=== PATIENT | female | born 1955 | race Hispanic/Latino ===

== ENCOUNTER 2017-02-12 22:12 | Emergency (ER) | payer MEDICAID ==
--- NOTE | 2017-02-12 23:33 | Emergency Department Report ---
HPI - General Chief Complaint: Abdominal Pain Time Seen by Provider: 02/12/17 22:59 - HPI HPI: This is a 61-year-old female who presents to the emergency department via EMS from home a personal ch[facility] with a complaint of some abdominal pain, lower leg pain and possible distention. The patient herself does not really have any complaints but she has a history of multiple aneurysms, dementia, previous brain injury. She presents with a note from her food service hotel runner explaining that she has a level of baseline confusion. She also has a history of a TIA last year. She has a history of liver cirrhosis, previous alcoholism, hypertension. The note says that she has been having this generalized abdominal pain and that they feel like her abdomen is slightly swollen. They also say that she had a recent fall and that there is bruising and swelling to the legs and that she is on Plavix. It appears as if her primary care physician is Dr. mai. ED Past Medical Hx - Past Medical History Previous Medical History?: Yes Hx Hypertension: Yes Hx CVA: Yes () Hx Congestive Heart Failure: No Hx Diabetes: No Hx GERD: Yes Hx Liver Disease: Yes (liver cirrhosis) Hx Sickle Cell Disease: No Hx Arthritis: Yes Hx Seizures: Yes (3 YRS AGO, on keppra) Hx Psychiatric Treatment: Yes (bipolar) Hx Asthma: No Hx COPD: No Hx Dementia: Yes Additional medical history: Thrombocytopenia, Alcohol- induced persisting dementia, anneurysm x2, ETOH abuse - Surgical History Past Surgical History?: Yes Additional Surgical History: Brain aneurysm x 2Hysterectomy 11/21/13 - Social History Smoking Status: Never Smoker - Medications Home Medications: Home Medications Medication Instructions Recorded Confirmed Last Taken Type Folic Acid [Folvite] 1 mg PO QDAY 11/02/13 09/05/15 06/21/15 History Hydroxyzine HCl [hydrOXYzine] 50 mg PO PRN PRN 11/02/13 09/05/15 06/21/15 History Lactulose [Cephulac] 30 gm PO TID 11/02/13 09/05/15 06/21/15 History Multivitamin [Multi-Vitamin Daily] 1 each PO DAILY 11/02/13 09/05/15 06/21/15 History Spironolactone [Aldactone] 100 mg PO DAILY 11/02/13 09/05/15 06/21/15 History Thiamine [Vitamin B-1] 100 mg PO QDAY 11/02/13 09/05/15 06/21/15 History lamoTRIgine [LaMICtal] 25 mg PO BID 11/02/13 09/05/15 06/21/15 History levETIRAcetam [Keppra TAB] 1,500 mg PO BID 11/02/13 09/05/15 06/21/15 History traZODone [Desyrel] 25 mg PO QHS PRN 11/02/13 09/05/15 06/21/15 History Aspirin [Aspirin BABY CHEW TAB] 1 tab PO DAILY 05/10/14 09/05/15 06/15/15 History Propranolol LA [Inderal LA] 60 mg PO QDAY #30 capsule 06/02/14 09/05/15 Rx Plavix 75 mg PO DAILY 06/14/15 09/05/15 06/15/15 History Famotidine [Pepcid] 40 mg PO QHS 09/05/15 09/05/15 Unknown History Pantoprazole [Protonix TAB] 40 mg PO BID #60 tablet 09/10/15 Unknown Rx Rifaximin [Xifaxan] 550 mg PO BID #60 tablet 09/10/15 Unknown Rx ED Review of Systems ROS: Stated complaint: ABD PAIN Other details as noted in HPI Comment: Unobtainable due to pts medical conditions Gastrointestinal: abdominal pain. denies: vomiting Musculoskeletal: arthralgia, myalgia Physical Exam - Physical Exam Vital Signs: Vital Signs 02/12/17 22:45 Temperature 97.7 F Pulse Rate 52 L Blood Pressure 114/63 [Left] O2 Sat by Pulse 97 Oximetry Physical Exam: GENERAL: The patient is well-developed well-nourished. HENT: Normocephalic. Atraumatic. Patient has moist mucous membranes. EYES: Extraocular motions are intact. Pupils equal reactive to light bilaterally. NECK: Supple. Trachea is midline. CHEST/LUNGS: Clear to auscultation. There is no respiratory distress noted. HEART/CARDIOVASCULAR: Regular. There is no tachycardia. There is no gallop rub or murmur. ABDOMEN: Abdomen is soft, nontender. Patient has normal bowel sounds. There is no abdominal distention. SKIN: There is some ecchymosis seen to the bilateral anterior tib-fib. Skin is warm and dry. NEURO: The patient is awake and cooperative. There is some confusion but it is baseline for the patient. The patient has normal speech. MUSCULOSKELETAL: There is no tenderness or deformity. There is no evidence of acute injury. ED Course Vital Signs 02/12/17 22:45 Temperature 97.7 F Pulse Rate 52 L Blood Pressure 114/63 [Left] O2 Sat by Pulse 97 Oximetry ED Medical Decision Making - Lab Data Result diagrams: 02/12/17 22:52 02/12/17 22:52 - Radiology Data Radiology results: report reviewed, image reviewed interpreted by me: Abdominal x-ray shows some nonspecific nonobstructive bowel gas. X-ray of the bilateral tib-fib does not show any fracture, does occasionally acute process. PROCEDURE: CT ABDOMEN PELVIS W CON TECHNIQUE: Computerized axial tomography of the abdomen and pelvis was performed after the IV injection of iodinated nonionic contrast. HISTORY: Abd pain COMPARISON: 01/22/2014 FINDINGS: Visualized lower thorax: There are large esophageal varices. Lung bases are clear. Liver: The liver is enlarged and heterogeneous and nodular consistent with advanced cirrhosis. The appearance is similar to previous examination.. Spleen: Normal size and attenuation. Gallbladder and biliary system: There is cholelithiasis. There is no cholecystitis or biliary ductal dilatation.. Pancreas: Normal. Adrenals: Normal. Kidneys: Normal. GI tract: There is mucosal thickening of the stomach suggesting gastritis. There is no bowel obstruction, colitis or enteritis. There is moderate stool in the colon. Appendix is normal.. Lymph nodes and mesentery: There are nonspecific borderline prominent mesenteric lymph nodes.. Vasculature: There are gastric varices. There is chronic occlusion of the portal vein. There is calcified plaque in the abdominal aorta. There is no aneurysm.. Bladder: Normal. Reproductive organs: There has been a hysterectomy.. Peritoneum: There is no ascites or free air, abscess or adenopathy.. Musculoskeletal structures: No significant abnormality. There is bilateral spondylolysis at L5-S1. Other: None. IMPRESSION: The liver is enlarged and heterogeneous and nodular consistent with advanced cirrhosis. The appearance is similar to previous examination.. There is cholelithiasis. There is no cholecystitis or biliary ductal dilatation.. There is mucosal thickening of the stomach suggesting gastritis. There is no bowel obstruction, colitis or enteritis. There is moderate stool in the colon. Appendix is normal.. There are nonspecific borderline prominent mesenteric lymph nodes.. There are esophageal and gastric varices. There is chronic occlusion of the portal vein. There is calcified plaque in the abdominal aorta. There is no aneurysm.. There has been a hysterectomy.. There is no ascites or free air, abscess or adenopathy.. - Medical Decision Making 61-year-old female presents from her personal chcf with the complaint of possible abdominal pain, leg pain and a recent fall. She has a history of liver cirrhosis and the food service hotel runner thought she might appear to have abdominal distention as well. Her labs are mostly unremarkable. There is some elevation in her ammonia but she has a history of hyperammonemia and takes lactulose 3 times a day. She is at her baseline mental status. Abdominal x-ray shows some nonspecific nonobstructive bowel gas. A CT of the abdomen and pelvis with IV contrast was done that shows some cholelithiasis without cholecystitis, cirrhosis and some chronic issues but no acute process seen including no ascites. X-rays are done of the bilateral tib-fib do not show any fracture, dislocation or any acute process. Vital signs stable throughout her ED course. I spoke to the food service hotel runner, Ms. Weir, who is aware of the workup done, the results and the plan to send her back to the personal chcf by encouragement to follow up with the PCP and software project lead. - Differential Diagnosis cirrhosis, ascites, gastritis, diverticulitis Critical Care Time: No Critical care attestation.: If time is entered above; I have spent that time in minutes in the direct care of this critically ill patient, excluding procedure time. ED Disposition Clinical Impression: Hyperammonemia Liver cirrhosis Qualifiers: Hepatic cirrhosis type: unspecified hepatic cirrhosis Ascites presence: without ascites Qualified Code(s): K74.60 - Unspecified cirrhosis of liver Abdominal pain Qualifiers: Abdominal location: generalized Qualified Code(s): R10.84 - Generalized abdominal pain Disposition: -01 TO HOME OR SELFCARE Is pt being admited?: No Condition: Stable Instructions: Cirrhosis (ED), Abdominal Pain (ED), Fall Prevention (ED) Additional Instructions: Please follow up with the primary care physician and the software project lead. Return to the emergency Department with any worsening of your symptoms or any acute distress. Referrals: PRIMARY CARE, [Primary Care Provider] - 3-5 Days EDUIN TELLO MD [Staff Physician] - 3-5 Days LEMUEL ORTIZ MD [Staff Physician] - 3-5 Days Time of Disposition: 03:57
[2017-02-12 23:43] LABS: Alanine Aminotransferase 19 units/L (7-56); Albumin/Globulin Ratio 0.9 %; Alkaline Phosphatase 96 units/L (35-129); Anion Gap 20 mmol/L; BUN/Creatinine Ratio 20; Blood Urea Nitrogen 10 mg/dL (7-17); Calcium 8.6 mg/dL (8.4-10.2); Carbon Dioxide 18 mmol/L (22-30); Chloride 103.5 mmol/L (98-107); Glucose 81 mg/dL (65-100); Lipase 37 units/L (13-60); Potassium 4.3 mmol/L (3.6-5.0); Sodium 137 mmol/L (137-145); Total Protein 6.3 g/dL (6.3-8.2)
[2017-02-13 00:06] VITALS: BP 121/61
[2017-02-13 00:14] LABS: Hematocrit 40.1 % (30.3-42.9); Hemoglobin 13.1 gm/dl (10.1-14.3); Mean Corpuscular HGB Conc 33 % (30-34); Mean Corpuscular Hemoglobin 29 pg (28-32); Mean Corpuscular Volume 90 fl (79-97); Red Blood Count 4.47 M/mm3 (3.65-5.03); White Blood Count 4.6 K/mm3 (4.5-11.0)
[2017-02-13] MEDS ORDERED: NACL ONE (00:27)
[2017-02-13 00:30] LABS: Platelet Count 108 K/mm3 (140-440)
--- NOTE | 2017-02-13 01:53 | XRay Report ---
FINAL REPORT PROCEDURE: XR TIBIA FIBULA 2V LT TECHNIQUE: LEFT tibia and fibula radiographs, AP and lateral views. CPT 96907 HISTORY: fall, leg pain of left tib fib COMPARISON: No prior studies are available for comparison. FINDINGS: Fracture (s) and/or Dislocation(s): None . Joint space(s): Normal . Soft tissues: Normal . Bone mineralization: Normal . Foreign bodies: None . IMPRESSION: Normal Examination.
--- NOTE | 2017-02-13 02:01 | XRay Report ---
FINAL REPORT PROCEDURE: XR TIBIA FIBULA 2V RT TECHNIQUE: RIGHT tibia and fibula radiographs, AP and lateral views. CPT 44439 HISTORY: fall/pain of rt tib/fib COMPARISON: No prior studies are available for comparison. FINDINGS: Fracture (s) and/or Dislocation(s): None . Joint space(s): Normal . Soft tissues: Normal . Bone mineralization: Normal . Foreign bodies: None . IMPRESSION: Normal Examination.
[2017-02-13 02:13] LABS: Basophils % (Manual) 0 % (0.0-1.8); Blastocytes % (Manual) 0 %
[2017-02-13 02:14] LABS: Anisocytosis 1+; Elliptocytes Few; Giant Platelets Few; Ovalocytes Few; Poikilocytosis 1+
[2017-02-13 02:17] LABS: Diff Status Complete; Helmet Cells Rare; Platelet Estimate Consistent w Auto
--- NOTE | 2017-02-13 03:40 | Cat Scan Report ---
FINAL REPORT PROCEDURE: CT ABDOMEN PELVIS W CON TECHNIQUE: Computerized axial tomography of the abdomen and pelvis was performed after the IV injection of iodinated nonionic contrast. HISTORY: Abd pain COMPARISON: 01/22/2014 FINDINGS: Visualized lower thorax: There are large esophageal varices. Lung bases are clear. Liver: The liver is enlarged and heterogeneous and nodular consistent with advanced cirrhosis. The appearance is similar to previous examination.. Spleen: Normal size and attenuation. Gallbladder and biliary system: There is cholelithiasis. There is no cholecystitis or biliary ductal dilatation.. Pancreas: Normal. Adrenals: Normal. Kidneys: Normal. GI tract: There is mucosal thickening of the stomach suggesting gastritis. There is no bowel obstruction, colitis or enteritis. There is moderate stool in the colon. Appendix is normal.. Lymph nodes and mesentery: There are nonspecific borderline prominent mesenteric lymph nodes.. Vasculature: There are gastric varices. There is chronic occlusion of the portal vein. There is calcified plaque in the abdominal aorta. There is no aneurysm.. Bladder: Normal. Reproductive organs: There has been a hysterectomy.. Peritoneum: There is no ascites or free air, abscess or adenopathy.. Musculoskeletal structures: No significant abnormality. There is bilateral spondylolysis at L5-S1. Other: None. IMPRESSION: The liver is enlarged and heterogeneous and nodular consistent with advanced cirrhosis. The appearance is similar to previous examination.. There is cholelithiasis. There is no cholecystitis or biliary ductal dilatation.. There is mucosal thickening of the stomach suggesting gastritis. There is no bowel obstruction, colitis or enteritis. There is moderate stool in the colon. Appendix is normal.. There are nonspecific borderline prominent mesenteric lymph nodes.. There are esophageal and gastric varices. There is chronic occlusion of the portal vein. There is calcified plaque in the abdominal aorta. There is no aneurysm.. There has been a hysterectomy.. There is no ascites or free air, abscess or adenopathy..
--- NOTE | 2017-02-13 07:58 | XRay Report ---
ABDOMEN, 2 views: History: Abdominal pain. There is no evidence of free air beneath the diaphragms. The gas pattern within the abdomen is unremarkable. There is no evidence of bowel dilatation, or air-fluid levels. Organ shadows are unremarkable. There are multiple calcifications in the right upper quadrant measuring up to 1 cm consistent with gallstones. IMPRESSION: Cholelithiasis. No evidence for bowel obstruction.
== END 2017-02-13 07:48 | disposition home or self-care (01) ==
LOC: ED 22:12
DX: E72.20 Disorder of urea cycle metabolism, unspecified (principal); K74.60 Unspecified cirrhosis of liver; R10.84 Generalized abdominal pain; I10 Essential (primary) hypertension; F31.9 Bipolar disorder, unspecified
CPT/HCPCS: 36415; 73590; 74020; 74177; 80053; 82140; 83690; 85007; 85025; 99285; Q9967

== ENCOUNTER 2017-05-08 08:12 | Outpatient (CLI) | payer MEDICAID ==
--- NOTE | 2017-05-08 14:11 | Mammography Report ---
BONE DEXA:05/08/17 08:12:00 CLINICAL: Postmenopausal. COMPARISON: None. TECHNIQUE: Two site bone DEXA performed on an Hologic scanner. FINDINGS: The average BMD of the lumbar spine L1-L4 is 1.171g/cm squared with a T-score of +1.1 and a Z-score of +2.6. The average BMD of the left hip is 0.894g/cm squared with a T-score of -0.4 and a Z-score of +0.6. IMPRESSION: WHO classification: Normal with average fracture risk based on the spine and left hip measurements. RECOMMENDATION: Clinical correlation and routine screening. DEFINITIONS: BMD = Bone Mineral Density T-score = BMD related to mean peak bone mass of young adult (mean expressed in Standard Deviation) Z-score = Age matched BMD expressed in SD World Health Organization (WHO) Diagnostic Criteria Normal T-score > -1 SD Osteopenia T-score between -1 and -2.4 SD Osteoporosis T-score -2.5 SD or below NOTE: BMD is not the only risk factor for fracture; also consider factors such as the patient's age, risk of falling, previous osteoporotic fracture, family history of osteoporotic fractures, current smoker, and low body weight. Z-scores are not calculated if >80 years of age.
--- NOTE | 2017-05-08 14:22 | Mammography Report ---
BILATERAL DIGITAL SCREENING MAMMOGRAM with CAD : 05/08/17 08:12:00 CLINICAL: Routine screening. COMPARISON:None available. Her last mammogram was at [facility]. FINDINGS: The breasts are heterogeneously dense, which may obscure small masses.Left upper outer biopsy clip. No mass, architectural distortion or suspicious calcifications. IMPRESSION: No mammographic evidence of malignancy. BI-RADS CATEGORY: 2 -- Benign RECOMMENDATION: Routine mammographic screening in one year. COMMENT: Patient follow-up letters are generated by our [employer] application.
== END 2017-05-08 08:13 | disposition home or self-care (01) ==
LOC: MAMMO 08:12
PROVIDERS: ATTEND Internal Medicine
DX: Z12.31 Encounter for screening mammogram for malignant neoplasm of breast (principal); Z13.820 Encounter for screening for osteoporosis; I10 Essential (primary) hypertension; J18.9 Pneumonia, unspecified organism; K21.9 Gastro-esophageal reflux disease without esophagitis; Z78.0 Asymptomatic menopausal state
CPT/HCPCS: 77080; G0202; 77067

== ENCOUNTER 2017-06-23 08:44 | Day surgery (SDC) | payer MEDICAID ==
[2017-06-23] MEDS ORDERED: NACL 0.9% 1000 ML 1,000 ML IV SCH (11:00)
--- NOTE | 2017-06-23 11:15 | Anesthesia Consultation ---
Anesthesia Consult and Med Hx Date of service: 06/23/17 - Airway Anesthetic Teeth Evaluation: Poor ROM Head & Neck: Adequate Mental/Hyoid Distance: Adequate Mallampati Class: Class II Intubation Access Assessment: Probably Good - Pulmonary Exam CTA: Yes - Cardiac Exam Cardiac Exam: RRR - Pre-Operative Health Status ASA Pre-Surgery Classification: ASA4 Proposed Anesthetic Plan: MAC - Pulmonary Hx Smoking: Yes (STOPPED X 15 YRS) Hx Asthma: No COPD: No Hx Pneumonia: Yes Hx Sleep Apnea: No (JERRY PRE SCREEN HIGH RISK) - Cardiovascular System Hx Hypertension: Yes - Central Nervous System Hx Neuromuscular Disorder: Yes (h/o cerebral aneursym repair, hepatic encephalopathy) Hx Seizures: Yes (3 YRS AGO, on keppra) CVA: Yes Hx Psychiatric Problems: Yes (bipolar) - Gastrointestinal Hx Ulcer: Yes (h/o esophageal varices and banding) Hx Gastroesophageal Reflux Disease: Yes - Endocrine Hx End Stage Renal Disease: No Hx Cirrhosis: Yes Hx Liver Disease: Yes Hx Insulin Dependent Diabetes: No Hx Non-Insulin Dependent Diabetes: No Hx Thyroid Disease: No - Hematic Hx Anemia: No Hx Sickle Cell Disease: No - Other Systems Hx Alcohol Use: Yes (DRY X 6 YRS) Hx Substance Use: Yes (COCAINE ABUSE- OFF X 15 YRS) Hx Cancer: No
--- NOTE | 2017-06-23 11:16 | Anesthesia Day of Surgery ---
Anesthesia Day of Surgery - Day of Surgery Patient Examined: Yes Patient H&P Reviewed: Yes Patient is NPO: Yes
[2017-06-23] MEDS ORDERED: WATER FOR IRRIG STERILE IR ONE (11:28)
[2017-06-23] MEDS ORDERED: DIPRIVAN 10 MG/ML IV ONE (11:30)
--- NOTE | 2017-06-23 11:46 | Short Stay Summary ---
Short Stay Documentation Date of service: 06/23/17 Narrative H&P: The patient presents for EGD for surveillance of esophageal varices. She has a prior history of a variceal bleed. - History Past Medical History: liver disease (Cirrhosis secondary to ETOH.) Past Surgical History: hysterectomy, Other (brain surgery) Social history: no significant social history, single, alcohol abuse (remote history of ETOH abuse) - Allergies and Medications Current Medications: Allergies No Known Allergies Allergy (Verified 06/14/15 10:49) Home Medications Medication Instructions Recorded Confirmed Last Taken Type Folic Acid [Folvite] 1 mg PO QDAY 11/02/13 09/05/15 06/22/17 History Hydroxyzine HCl [hydrOXYzine] 50 mg PO PRN PRN 11/02/13 09/05/15 06/21/15 History Lactulose [Cephulac] 30 gm PO TID 11/02/13 09/05/15 06/22/17 History Multivitamin [Multi-Vitamin Daily] 1 each PO DAILY 11/02/13 09/05/15 06/22/17 History Spironolactone [Aldactone] 100 mg PO DAILY 11/02/13 09/05/15 06/22/17 History Thiamine [Vitamin B-1] 100 mg PO QDAY 11/02/13 09/05/15 06/22/17 History lamoTRIgine [LaMICtal] 25 mg PO BID 11/02/13 09/05/15 06/22/17 History levETIRAcetam [Keppra TAB] 1,500 mg PO BID 11/02/13 09/05/15 06/21/15 History traZODone [Desyrel] 25 mg PO QHS PRN 11/02/13 09/05/15 06/22/17 History Aspirin [Aspirin BABY CHEW TAB] 1 tab PO DAILY 05/10/14 09/05/15 06/22/17 History Propranolol LA [Inderal LA] 60 mg PO QDAY #30 capsule 06/02/14 09/05/15 Rx Plavix 75 mg PO DAILY 06/14/15 09/05/15 06/16/17 History Famotidine [Pepcid] 40 mg PO QHS 09/05/15 09/05/15 06/22/17 History Pantoprazole [Protonix TAB] 40 mg PO BID #60 tablet 09/10/15 Unknown Rx Rifaximin [Xifaxan] 550 mg PO BID #60 tablet 09/10/15 Unknown Rx Active Medications Sodium Chloride (Nacl 0.9% 1000 Ml) 1,000 mls @ 50 mls/hr IV DIRECT HUONG Last Admin: 06/23/17 10:47 Dose: 50 mls/hr - Physical exam General appearance: no acute distress, well-nourished Integumentary: no rash, no growths, no abnormal pigmentation HEENT: Atraumatic, PERRLA, EOMI, Mucous membr. moist/pink Lungs: Clear to auscultation, Normal air movement Breasts: deferred Heart: Regular rate, Normal S1, Normal S2, No murmurs Gastrointestinal: normoactive bowel sounds, no tenderness, no distended, no masses, no organomegaly, no hepatomegaly, no splenomegaly Female Genitourinary: deferred Rectal Exam: deferred Extremities: no ischemia, pulses intact, pulses symmetrical, No edema, normal temperature, normal color, Full ROM Neurological: Normal gait, Normal speech, Strength at 5/5 X4 ext, Normal tone, Sensation intact, Cranial nerves 3-12 NL - Brief post op/procedure progress note Date of procedure: 06/23/17 Findings: see dictation Estimated blood loss: none Pathology: none Specimen disposition: to lab - Disposition Condition at discharge: Good Disposition: DC-01 TO HOME OR SELFCARE - Discharge Diagnoses (1) Esophageal varices in alcoholic cirrhosis Status: Acute Short Stay Discharge Plan Activity: other (no driving) Weight Bearing Status: Weight Bear as Tolerated Diet: regular Follow up with: EDUIN TELLO MD [Primary Care Provider] - 7 Days
--- NOTE | 2017-06-23 11:48 | Operative Report ---
Operative Report Operative Report: Date of procedure: 06/23/2017 Procedure: Esophagogastroduodenoscopy Preprocedure diagnosis: Is treated esophageal varices and prior variceal bleed. Surveillance Post procedure diagnosis: 0-1+ distal esophageal varices. Mild portal hypertension gastropathy. Endoscopist: Dr. Barajas Anesthesia: Monitored anesthesia care per anesthesia department Medications: Propofol per anesthesia. Estimated blood loss: Around After careful discussion of the nature and purpose of the procedure as well as details the technique risks benefits and alternatives consent was obtained. The patient was placed in the left lateral decubitus position and medicated per anesthesia. The tip of the [employer] EQ 570 video scope was passed per orum under direct vision into the esophagus and advanced into the stomach and descending duodenum. The descending duodenum the duodenal bulb and pylorus were symmetrical and normal. The scope was withdrawn into the stomach and the stomach then gently insufflated with air. The antrum was normal. The stomach was further insufflated and the scope was then retroflexed and partially withdrawn. The cardia revealed no varices. The fundus revealed mild hyperemia and congestion consistent with mild portal hypertension gastropathy. The body of the stomach was normal and easily distensible.The scope was then withdrawn in the forward position. The esophagogastric junction was at 37 cm. The distal esophagus reveals 0-1+ varices with no stigmata of bleeding. 1+ varices were seen in the mid esophagus. The proximal esophagus was normal. The procedure was was well tolerated and the patient was observed in recovery. Impressions: 0-1+ esophageal varices. Mild portal hypertension gastropathy. Plan: Continue beta allison therapy. Office follow-up in 6 months. Repeat endoscopy in one year. Electronically signed: Juan Alberto Barajas MD
[2017-06-23 12:14] VITALS: BP 99/56
--- NOTE | 2017-06-23 15:08 | Post Anesthesia Evaluation ---
- Post Anesthesia Evaluation Patient Participated: Yes Airway Patent: Yes Stable Respiratory Function: Yes Nausea/Vomiting: No Temp > 96.8F: Yes Pain Manageable: Yes Adequeate Hydration: Yes Anesthesia Complications: No
== END 2017-06-23 08:45 | disposition home or self-care (01) ==
LOC: GIO 08:44
PROVIDERS: ATTEND Internal Medicine Gastroenterology
DX: K70.30 Alcoholic cirrhosis of liver without ascites (principal); I85.10 Secondary esophageal varices without bleeding; K76.6 Portal hypertension; K31.89 Other diseases of stomach and duodenum; Z90.710 Acquired absence of both cervix and uterus; Z98.890 Other specified postprocedural states; Z79.82 Long term (current) use of aspirin; Z79.899 Other long term (current) drug therapy
CPT/HCPCS: 43235; J2704; J7030

== ENCOUNTER 2018-07-24 10:43 | Inpatient (IN) | payer MEDICAID ==
--- NOTE | 2018-07-24 11:09 | Emergency Department Report ---
ED Altered Mental Status HPI - General Stated Complaint: ALTERED MENTAL STATUS Time Seen by Provider: 07/24/18 10:57 - History of Present Illness Initial Comments: 62-year-old female with a past medical history of alcohol abuse anemia, aneurysm 2, alcohol induced dementia, seizures, bipolar disorder, dementia, and brain injury to the hospital with altered mental status. Personal jail provider called EMS. Provider is at the bedside. Patient is oriented to self only. Answers questions minimally and follow some basic commands. She denies any pain. - Related Data Home Medications Medication Instructions Recorded Confirmed Last Taken Folic Acid [Folvite] 1 mg PO QDAY 11/02/13 08/11/17 06/22/17 Multivitamin [Multi-Vitamin Daily] 1 each PO DAILY 11/02/13 08/11/17 06/22/17 Aspirin [Aspirin BABY CHEW TAB] 1 tab PO DAILY 05/10/14 08/11/17 06/22/17 Furosemide [Lasix] 20 mg PO QDAY 08/11/17 08/11/17 Unknown Previous Rx's Medication Instructions Recorded Last Taken Type Famotidine [Pepcid] 40 mg PO QHS #30 tablet 08/16/17 Unknown Rx Lactulose [Cephulac] 30 gm PO TID #900 oral.liqd 08/16/17 Unknown Rx Levothyroxine [Synthroid] 75 mcg PO DAILY@0600 #30 tablet 08/16/17 Unknown Rx Plavix 75 mg PO DAILY #30 08/16/17 Unknown Rx Propranolol LA [Inderal LA] 60 mg PO QDAY #30 capsule 08/16/17 Unknown Rx Spironolactone [Aldactone] 100 mg PO QDAY #30 tablet 08/16/17 Unknown Rx Thiamine [Vitamin B-1] 100 mg PO QDAY #30 tablet 08/16/17 Unknown Rx lamoTRIgine [LaMICtal] 25 mg PO BID #50 tablet 08/16/17 Unknown Rx levETIRAcetam [Keppra TAB] 1,500 mg PO BID #60 tablet 08/16/17 Unknown Rx traZODone [Desyrel] 50 mg PO QHS PRN #30 tablet 08/16/17 Unknown Rx Allergies Allergy/AdvReac Type Severity Reaction Status Date / Time No Known Allergies Allergy Verified 06/14/15 10:49 ED Review of Systems ROS: Stated complaint: ALTERED MENTAL STATUS Other details as noted in HPI Comment: Unobtainable due to pts medical conditions ED Past Medical Hx - Past Medical History Hx Hypertension: Yes Hx CVA: Yes () Hx Congestive Heart Failure: No Hx Diabetes: No Hx GERD: Yes Hx Liver Disease: Yes Hx Sickle Cell Disease: No Hx Arthritis: Yes Hx Seizures: Yes (3 YRS AGO, on keppra) Hx Psychiatric Treatment: Yes (bipolar) Hx Asthma: No Hx COPD: No Hx Dementia: Yes Additional medical history: Thrombocytopenia, Alcohol- induced persisting dementia, anneurysm x2, ETOH abuse - Surgical History Additional Surgical History: Brain aneurysm x 2Hysterectomy 11/21/13 - Social History Smoking Status: Unknown if ever smoked - Medications Home Medications: Home Medications Medication Instructions Recorded Confirmed Last Taken Type Folic Acid [Folvite] 1 mg PO QDAY 11/02/13 08/11/17 06/22/17 History Multivitamin [Multi-Vitamin Daily] 1 each PO DAILY 11/02/13 08/11/17 06/22/17 History Aspirin [Aspirin BABY CHEW TAB] 1 tab PO DAILY 05/10/14 08/11/17 06/22/17 History Furosemide [Lasix] 20 mg PO QDAY 08/11/17 08/11/17 Unknown History Famotidine [Pepcid] 40 mg PO QHS #30 tablet 08/16/17 Unknown Rx Lactulose [Cephulac] 30 gm PO TID #900 oral.liqd 08/16/17 Unknown Rx Levothyroxine [Synthroid] 75 mcg PO DAILY@0600 #30 tablet 08/16/17 Unknown Rx Plavix 75 mg PO DAILY #30 08/16/17 Unknown Rx Propranolol LA [Inderal LA] 60 mg PO QDAY #30 capsule 08/16/17 Unknown Rx Spironolactone [Aldactone] 100 mg PO QDAY #30 tablet 08/16/17 Unknown Rx Thiamine [Vitamin B-1] 100 mg PO QDAY #30 tablet 08/16/17 Unknown Rx lamoTRIgine [LaMICtal] 25 mg PO BID #50 tablet 08/16/17 Unknown Rx levETIRAcetam [Keppra TAB] 1,500 mg PO BID #60 tablet 08/16/17 Unknown Rx traZODone [Desyrel] 50 mg PO QHS PRN #30 tablet 08/16/17 Unknown Rx ED Physical Exam - Other Other exam information: General: No limitations, patient is alert in no acute distress Head exam: Atraumatic, normocephalic Eyes exam: Normal appearance, pupils equal reactive to light, extraocular movements intact ENT: Moist mucous membrane Neck exam: Normal inspection, full range of motion, no meningismus nontender Respiratory exam: Clear to auscultation bilateral, no wheezes, rales, crackles Cardiovascular: Normal rate and rhythm, normal heart sounds Abdomen: Soft, nondistended, and nontender, with normal bowel sounds, no rebound, or guarding Extremity: Full range of motion normal inspection no deformity Back: Normal Inspection, full range of motion, no tenderness Neurologic: Alert, oriented to self and would not respond to other orientation questions. Pupils equal and reactive to light, extraocular movements intact, no facial droop, speech slow but clear. Patient initially holding left arm flexed position at the elbow. She resists movement of the arm but has equal and hand excelsior machine tender and no pain with movement. Equal lower extremity strength. Sensation grossly intact. Psychiatric: normal affect, normal mood ED Course Vital Signs 07/24/18 07/24/18 11:34 11:36 Temperature 97.6 F 97.6 F Pulse Rate 55 L 55 L Respiratory 12 12 Rate Blood Pressure 115/59 Blood Pressure 115/59 [Right] O2 Sat by Pulse 94 64 L Oximetry - Lab Data Result diagrams: 07/24/18 11:08 07/24/18 11:08 Lab Results 07/24/18 07/24/18 07/24/18 Range/Units 11:08 11:08 11:08 WBC 3.6 L (4.5-11.0) K/mm3 RBC 4.48 (3.65-5.03) M/mm3 Hgb 13.1 (10.1-14.3) gm/dl Hct 39.7 (30.3-42.9) % MCV 89 (79-97) fl MCH 29 (28-32) pg MCHC 33 (30-34) % RDW 17.5 H (13.2-15.2) % Plt Count 132 L (140-440) K/mm3 [place] % (Auto) Soil Conservation Aide PT 16.6 H (12.2-14.9) Sec. INR 1.26 H (0.87-1.13) APTT 24.9 (24.2-36.6) Sec. Sodium 139 (137-145) mmol/L Potassium 3.9 (3.6-5.0) mmol/L Chloride 106.0 (98-107) mmol/L Carbon Dioxide 20 L (22-30) mmol/L Anion Gap 17 mmol/L BUN 14 (7-17) mg/dL Creatinine 0.8 (0.7-1.2) mg/dL Estimated GFR > 60 ml/min BUN/Creatinine Ratio 18 % Glucose 141 H (65-100) mg/dL POC Glucose (70-105) Calcium 9.4 (8.4-10.2) mg/dL Total Bilirubin 1.50 H (0.1-1.2) mg/dL AST 24 (5-40) units/L ALT 16 (7-56) units/L Alkaline Phosphatase 97 (35-129) units/L Ammonia (25-60) umol/L Total Creatine Kinase (30-135) units/L CK-MB (CK-2) (0.0-4.0) ng/mL CK-MB (CK-2) Rel Index (0-4) Troponin T < 0.010 (0.00-0.029) ng/mL Total Protein 6.5 (6.3-8.2) g/dL Albumin 3.7 L (3.9-5) g/dL Albumin/Globulin Ratio 1.3 % TSH (0.270-4.200) mlU/mL Free T4 (0.76-1.46) ng/dL Urine Color (Yellow) Urine Turbidity (Clear) Urine pH (5.0-7.0) Ur Specific [place] (1.003-1.030) Urine Protein (Negative) mg/dL Urine Glucose (UA) (Negative) mg/dL Urine Ketones (Negative) mg/dL Urine Blood (Negative) Urine Nitrite (Negative) Urine Bilirubin (Negative) Urine Urobilinogen (<2.0) mg/dL Ur Leukocyte Esterase (Negative) Urine WBC (Auto) (0.0-6.0) /HPF Urine RBC (Auto) (0.0-6.0) /HPF Hyaline Casts /LPF Urine Mucus /HPF Salicylates (2.8-20.0) mg/dL Urine Opiates Screen Urine Methadone Screen Acetaminophen (10.0-30.0) ug/mL Ur Barbiturates Screen Ur Phencyclidine Scrn Ur Amphetamines Screen U Benzodiazepines Scrn Urine Cocaine Screen U Marijuana (THC) Screen Drugs of Abuse Note Plasma/Serum Alcohol (0-0.07) % 07/24/18 07/24/18 07/24/18 Range/Units 11:08 11:08 11:08 WBC (4.5-11.0) K/mm3 RBC (3.65-5.03) M/mm3 Hgb (10.1-14.3) gm/dl Hct (30.3-42.9) % MCV (79-97) fl MCH (28-32) pg MCHC (30-34) % RDW (13.2-15.2) % Plt Count (140-440) K/mm3 [place] % (Auto) PT (12.2-14.9) Sec. INR (0.87-1.13) APTT (24.2-36.6) Sec. Sodium (137-145) mmol/L Potassium (3.6-5.0) mmol/L Chloride (98-107) mmol/L Carbon Dioxide (22-30) mmol/L Anion Gap mmol/L BUN (7-17) mg/dL Creatinine (0.7-1.2) mg/dL Estimated GFR ml/min BUN/Creatinine Ratio % Glucose (65-100) mg/dL POC Glucose (70-105) Calcium (8.4-10.2) mg/dL Total Bilirubin (0.1-1.2) mg/dL AST (5-40) units/L ALT (7-56) units/L Alkaline Phosphatase (35-129) units/L Ammonia (25-60) umol/L Total Creatine Kinase (30-135) units/L CK-MB (CK-2) (0.0-4.0) ng/mL CK-MB (CK-2) Rel Index (0-4) Troponin T (0.00-0.029) ng/mL Total Protein (6.3-8.2) g/dL Albumin (3.9-5) g/dL Albumin/Globulin Ratio % TSH (0.270-4.200) mlU/mL Free T4 (0.76-1.46) ng/dL Urine Color (Yellow) Urine Turbidity (Clear) Urine pH (5.0-7.0) Ur Specific [place] (1.003-1.030) Urine Protein (Negative) mg/dL Urine Glucose (UA) (Negative) mg/dL Urine Ketones (Negative) mg/dL Urine Blood (Negative) Urine Nitrite (Negative) Urine Bilirubin (Negative) Urine Urobilinogen (<2.0) mg/dL Ur Leukocyte Esterase (Negative) Urine WBC (Auto) (0.0-6.0) /HPF Urine RBC (Auto) (0.0-6.0) /HPF Hyaline Casts /LPF Urine Mucus /HPF Salicylates < 0.3 L (2.8-20.0) mg/dL Urine Opiates Screen Urine Methadone Screen Acetaminophen < 5.0 L (10.0-30.0) ug/mL Ur Barbiturates Screen Ur Phencyclidine Scrn Ur Amphetamines Screen U Benzodiazepines Scrn Urine Cocaine Screen U Marijuana (THC) Screen Drugs of Abuse Note Plasma/Serum Alcohol < 0.01 (0-0.07) % 07/24/18 07/24/18 07/24/18 Range/Units 11:08 11:08 11:08 WBC (4.5-11.0) K/mm3 RBC (3.65-5.03) M/mm3 Hgb (10.1-14.3) gm/dl Hct (30.3-42.9) % MCV (79-97) fl MCH (28-32) pg MCHC (30-34) % RDW (13.2-15.2) % Plt Count (140-440) K/mm3 [place] % (Auto) PT (12.2-14.9) Sec. INR (0.87-1.13) APTT (24.2-36.6) Sec. Sodium (137-145) mmol/L Potassium (3.6-5.0) mmol/L Chloride (98-107) mmol/L Carbon Dioxide (22-30) mmol/L Anion Gap mmol/L BUN (7-17) mg/dL Creatinine (0.7-1.2) mg/dL Estimated GFR ml/min BUN/Creatinine Ratio % Glucose (65-100) mg/dL POC Glucose (70-105) Calcium (8.4-10.2) mg/dL Total Bilirubin (0.1-1.2) mg/dL AST (5-40) units/L ALT (7-56) units/L Alkaline Phosphatase (35-129) units/L Ammonia 139.0 H (25-60) umol/L Total Creatine Kinase 88 (30-135) units/L CK-MB (CK-2) 3.6 (0.0-4.0) ng/mL CK-MB (CK-2) Rel Index 4.0 (0-4) Troponin T (0.00-0.029) ng/mL Total Protein (6.3-8.2) g/dL Albumin (3.9-5) g/dL Albumin/Globulin Ratio % TSH 9.060 H (0.270-4.200) mlU/mL Free T4 1.08 (0.76-1.46) ng/dL Urine Color (Yellow) Urine Turbidity (Clear) Urine pH (5.0-7.0) Ur Specific [place] (1.003-1.030) Urine Protein (Negative) mg/dL Urine Glucose (UA) (Negative) mg/dL Urine Ketones (Negative) mg/dL Urine Blood (Negative) Urine Nitrite (Negative) Urine Bilirubin (Negative) Urine Urobilinogen (<2.0) mg/dL Ur Leukocyte Esterase (Negative) Urine WBC (Auto) (0.0-6.0) /HPF Urine RBC (Auto) (0.0-6.0) /HPF Hyaline Casts /LPF Urine Mucus /HPF Salicylates (2.8-20.0) mg/dL Urine Opiates Screen Urine Methadone Screen Acetaminophen (10.0-30.0) ug/mL Ur Barbiturates Screen Ur Phencyclidine Scrn Ur Amphetamines Screen U Benzodiazepines Scrn Urine Cocaine Screen U Marijuana (THC) Screen Drugs of Abuse Note Plasma/Serum Alcohol (0-0.07) % 07/24/18 07/24/18 07/24/18 Range/Units 12:08 Unknown Unknown WBC (4.5-11.0) K/mm3 RBC (3.65-5.03) M/mm3 Hgb (10.1-14.3) gm/dl Hct (30.3-42.9) % MCV (79-97) fl MCH (28-32) pg MCHC (30-34) % RDW (13.2-15.2) % Plt Count (140-440) K/mm3 [place] % (Auto) PT (12.2-14.9) Sec. INR (0.87-1.13) APTT (24.2-36.6) Sec. Sodium (137-145) mmol/L Potassium (3.6-5.0) mmol/L Chloride (98-107) mmol/L Carbon Dioxide (22-30) mmol/L Anion Gap mmol/L BUN (7-17) mg/dL Creatinine (0.7-1.2) mg/dL Estimated GFR ml/min BUN/Creatinine Ratio % Glucose (65-100) mg/dL POC Glucose 114 H (70-105) Calcium (8.4-10.2) mg/dL Total Bilirubin (0.1-1.2) mg/dL AST (5-40) units/L ALT (7-56) units/L Alkaline Phosphatase (35-129) units/L Ammonia (25-60) umol/L Total Creatine Kinase (30-135) units/L CK-MB (CK-2) (0.0-4.0) ng/mL CK-MB (CK-2) Rel Index (0-4) Troponin T (0.00-0.029) ng/mL Total Protein (6.3-8.2) g/dL Albumin (3.9-5) g/dL Albumin/Globulin Ratio % TSH (0.270-4.200) mlU/mL Free T4 (0.76-1.46) ng/dL Urine Color Yellow (Yellow) Urine Turbidity Clear (Clear) Urine pH 5.0 (5.0-7.0) Ur Specific [place] 1.024 (1.003-1.030) Urine Protein <15 mg/dl (Negative) mg/dL Urine Glucose (UA) Neg (Negative) mg/dL Urine Ketones Neg (Negative) mg/dL Urine Blood Neg (Negative) Urine Nitrite Neg (Negative) Urine Bilirubin Neg (Negative) Urine Urobilinogen < 2.0 (<2.0) mg/dL Ur Leukocyte Esterase Neg (Negative) Urine WBC (Auto) 1.0 (0.0-6.0) /HPF Urine RBC (Auto) 1.0 (0.0-6.0) /HPF Hyaline Casts 1 /LPF Urine Mucus Few /HPF Salicylates (2.8-20.0) mg/dL Urine Opiates Screen Presumptive negative Urine Methadone Screen Presumptive negative Acetaminophen (10.0-30.0) ug/mL Ur Barbiturates Screen Presumptive negative Ur Phencyclidine Scrn Presumptive negative Ur Amphetamines Screen Presumptive negative U Benzodiazepines Scrn Presumptive negative Urine Cocaine Screen Presumptive negative U Marijuana (THC) Screen Presumptive negative Drugs of Abuse Note Disclamer Plasma/Serum Alcohol (0-0.07) % - EKG Data -: EKG Interpreted by Me EKG shows normal: sinus rhythm (a lot of artifact on ekg), axis (qrs 40), QRS complexes (qrsd 75), ST-T waves (no stemi) Rate: normal (94) - Radiology Data Radiology results: report reviewed PROCEDURE: CT HEAD/BRAIN WO CON TECHNIQUE: CT examination of the head without IV contrast HISTORY: ams COMPARISONS: None available FINDINGS: Status post right temporal and left parietal craniotomy. Underlying chronic appearing encephalomalacia and volume loss in the right temporal lobe and right occipital lobe with ex vacuo dilatation of the right lateral ventricle. No acute air-fluid level visualized in the included air-filled sinuses. Bone windows demonstrate no acute fracture. There is ventricular and sulcal prominence compatible with global cerebrocortical atrophy. The brain contains no mass, mass effect, hemorrhage, or acute infarct. There is no extra-axial intracranial bleed, brain bleed, or midline shift. Cerebrovascular atherosclerotic calcification is present in the skull base arteries. IMPRESSION: No acute CVA, intracranial bleed, or brain mass Chronic postoperative findings as above - Medical Decision Making ams + hepatic encephalopathy Lactulose proved hosp informed for admission - Differential Diagnosis hepatic encephalopathy, CVA, ICH, infection, dementia Critical Care Time: No Critical care attestation.: If time is entered above; I have spent that time in minutes in the direct care of this critically ill patient, excluding procedure time. ED Disposition Clinical Impression: Hepatic encephalopathy, Altered mental status, History of alcohol abuse, Thrombocytopenia Disposition: -09 OP ADMIT IP TO THIS HOSP Is pt being admited?: Yes Condition: Stable Time of Disposition: 12:51 (DR Eldridge/hosp)
[2018-07-24 11:44] LABS: Hematocrit 39.7 % (30.3-42.9); Hemoglobin 13.1 gm/dl (10.1-14.3); Mean Corpuscular HGB Conc 33 % (30-34); Mean Corpuscular Volume 89 fl (79-97); Platelet Count 132 K/mm3 (140-440); Red Blood Count 4.48 M/mm3 (3.65-5.03); Red Cell Distribution Width 17.5 % (13.2-15.2)
[2018-07-24 11:54] LABS: INR 1.26 (0.87-1.13)
[2018-07-24 11:55] LABS: Partial Thromboplastin Time 24.9 Sec. (24.2-36.6)
[2018-07-24 12:00] LABS: Creatine Kinase MB 3.6 ng/mL (0.0-4.0)
[2018-07-24 12:03] LABS: Alanine Aminotransferase 16 units/L (7-56); Albumin 3.7 g/dL (3.9-5); BUN/Creatinine Ratio 18; Blood Urea Nitrogen 14 mg/dL (7-17); Calcium 9.4 mg/dL (8.4-10.2); Hemolysis Index 15
[2018-07-24 12:13] LABS: Free T4 (Free Thyroxine) 1.08 ng/dL (0.76-1.46)
[2018-07-24] MEDS ORDERED: CEPHULAC PO ONE (12:17)
--- NOTE | 2018-07-24 12:32 | Cat Scan Report ---
PROCEDURE: CT HEAD/BRAIN WO CON TECHNIQUE: CT examination of the head without IV contrast HISTORY: ams COMPARISONS: None available FINDINGS: Status post right temporal and left parietal craniotomy. Underlying chronic appearing encephalomalaci a and volume loss in the right temporal lobe and right occipital lobe with ex vacuo dilatation of the right lateral ventricle. No acute air-fluid level visualized in the included air-filled sinuses. Bone windows demonstrate no acute fracture. There is ventricular and sulcal prominence compatible with global cerebrocortical atrophy. The brain contains no mass, mass effect, hemorrhage, or acute infarct. There is no extra-axial intracranial bleed, brain bleed, or midline shift. Cerebrovascular atherosclerotic calcification is present in the skull base arteries. IMPRESSION: No acute CVA, intracranial bleed, or brain mass Chronic postoperative findings as above This document is electronically signed by Jose Amor MD., July 24 2018 12:30:39 PM ET
[2018-07-24 12:36] LABS: Bilirubin,Urine NEG (Negative); Blood,Urine NEG (Negative); Color,Urine Yellow (Yellow); Hyaline Casts,Urine 1 /LPF; Mucus,Urine FEW /HPF; Protein,Urine <15 mg/dL mg/dL (Negative); Urobilinogen,Urine < 2.0 mg/dL (<2.0)
[2018-07-24 12:42] LABS: Amphetamine Screen,Urine PRESUMPTIVE NEGATIVE; Benzodiazepines Screen,Urine PRESUMPTIVE NEGATIVE; Cannabinoid Screen,Urine PRESUMPTIVE NEGATIVE; Cocaine Screen,Urine PRESUMPTIVE NEGATIVE; Methadone Screen,Urine PRESUMPTIVE NEGATIVE; Opiate Screen,Urine PRESUMPTIVE NEGATIVE
[2018-07-24 14:45] LABS: Basophils % (Manual) 0 % (0.0-1.8); Eosinophils % (Manual) 0 % (0.0-4.3); Total Cells Counted 100
[2018-07-24 14:47] LABS: Platelet Estimate Consistent w Auto
--- NOTE | 2018-07-24 16:05 | History and Physical Report ---
History of Present Illness Date of examination: 07/24/18 Date of admission: 07/24/18 12:52 Medications and Allergies Allergies Allergy/AdvReac Type Severity Reaction Status Date / Time No Known Allergies Allergy Verified 06/14/15 10:49 Home Medications Medication Instructions Recorded Confirmed Last Taken Type Folic Acid [Folvite] 1 mg PO QDAY 11/02/13 08/11/17 06/22/17 History Multivitamin [Multi-Vitamin Daily] 1 each PO DAILY 11/02/13 08/11/17 06/22/17 History Aspirin [Aspirin BABY CHEW TAB] 1 tab PO DAILY 05/10/14 08/11/17 06/22/17 History Furosemide [Lasix] 20 mg PO QDAY 08/11/17 08/11/17 Unknown History Famotidine [Pepcid] 40 mg PO QHS #30 tablet 08/16/17 Unknown Rx Lactulose [Cephulac] 30 gm PO TID #900 oral.liqd 08/16/17 Unknown Rx Levothyroxine [Synthroid] 75 mcg PO DAILY@0600 #30 tablet 08/16/17 Unknown Rx Plavix 75 mg PO DAILY #30 08/16/17 Unknown Rx Propranolol LA [Inderal LA] 60 mg PO QDAY #30 capsule 08/16/17 Unknown Rx Spironolactone [Aldactone] 100 mg PO QDAY #30 tablet 08/16/17 Unknown Rx Thiamine [Vitamin B-1] 100 mg PO QDAY #30 tablet 08/16/17 Unknown Rx lamoTRIgine [LaMICtal] 25 mg PO BID #50 tablet 08/16/17 Unknown Rx levETIRAcetam [Keppra TAB] 1,500 mg PO BID #60 tablet 08/16/17 Unknown Rx traZODone [Desyrel] 50 mg PO QHS PRN #30 tablet 08/16/17 Unknown Rx Exam - Constitutional Vitals: Temp Pulse Resp BP Pulse Ox 97.6 F 50 L 13 110/46 96 07/24/18 11:36 07/24/18 14:15 07/24/18 14:15 07/24/18 14:31 07/24/18 13:15 Results - Labs CBC & Chem 7: 07/24/18 11:08 07/24/18 11:08 Labs: Laboratory Last Values WBC 3.6 K/mm3 (4.5-11.0) L 07/24/18 11:08 RBC 4.48 M/mm3 (3.65-5.03) 07/24/18 11:08 Hgb 13.1 gm/dl (10.1-14.3) 07/24/18 11:08 Hct 39.7 % (30.3-42.9) 07/24/18 11:08 MCV 89 fl (79-97) 07/24/18 11:08 MCH 29 pg (28-32) 07/24/18 11:08 MCHC 33 % (30-34) 07/24/18 11:08 RDW 17.5 % (13.2-15.2) H 07/24/18 11:08 Plt Count 132 K/mm3 (140-440) L 07/24/18 11:08 [place] % (Auto) Senior Database Administrator 07/24/18 11:08 Add Manual Diff Complete 07/24/18 11:08 Total Counted 100 07/24/18 11:08 Seg Neuts % (Manual) 63.0 % (40.0-70.0) 07/24/18 11:08 Band Neutrophils % 0 % 07/24/18 11:08 Lymphocytes % (Manual) 23.0 % (13.4-35.0) 07/24/18 11:08 Reactive Lymphs % (Man) 5.0 % 07/24/18 11:08 Monocytes % (Manual) 9.0 % (0.0-7.3) H 07/24/18 11:08 Eosinophils % (Manual) 0 % (0.0-4.3) 07/24/18 11:08 Basophils % (Manual) 0 % (0.0-1.8) 07/24/18 11:08 Metamyelocytes % 0 % 07/24/18 11:08 Myelocytes % 0 % 07/24/18 11:08 Promyelocytes % 0 % 07/24/18 11:08 Blast Cells % 0 % 07/24/18 11:08 Nucleated RBC % 1.0 % (0.0-0.9) H 07/24/18 11:08 Seg Neutrophils # Man 2.3 K/mm3 (1.8-7.7) 07/24/18 11:08 Band Neutrophils # 0.0 K/mm3 07/24/18 11:08 Lymphocytes # (Manual) 0.8 K/mm3 (1.2-5.4) L 07/24/18 11:08 Abs React Lymphs (Man) 0.2 K/mm3 07/24/18 11:08 Monocytes # (Manual) 0.3 K/mm3 (0.0-0.8) 07/24/18 11:08 Eosinophils # (Manual) 0.0 K/mm3 (0.0-0.4) 07/24/18 11:08 Basophils # (Manual) 0.0 K/mm3 (0.0-0.1) 07/24/18 11:08 Metamyelocytes # 0.0 K/mm3 07/24/18 11:08 Myelocytes # 0.0 K/mm3 07/24/18 11:08 Promyelocytes # 0.0 K/mm3 07/24/18 11:08 Blast Cells # 0.0 K/mm3 07/24/18 11:08 WBC Morphology Not Reportable 07/24/18 11:08 Hypersegmented Neuts Not Reportable 07/24/18 11:08 Hyposegmented Neuts Not Reportable 07/24/18 11:08 Hypogranular Neuts Not Reportable 07/24/18 11:08 Smudge Cells Not Reportable 07/24/18 11:08 Toxic Granulation Not Reportable 07/24/18 11:08 Toxic Vacuolation Not Reportable 07/24/18 11:08 Dohle Bodies Not Reportable 07/24/18 11:08 Pelger-Huet Anomaly Not Reportable 07/24/18 11:08 Lamine Rods Not Reportable 07/24/18 11:08 Platelet Estimate Consistent w auto 07/24/18 11:08 Clumped Platelets Not Reportable 07/24/18 11:08 Plt Clumps, EDTA Not Reportable 07/24/18 11:08 Large Platelets Not Reportable 07/24/18 11:08 Giant Platelets Not Reportable 07/24/18 11:08 Platelet Satelliting Not Reportable 07/24/18 11:08 Plt Morphology Comment Not Reportable 07/24/18 11:08 RBC Morphology Not Reportable 07/24/18 11:08 Dimorphic RBCs Not Reportable 07/24/18 11:08 Polychromasia Not Reportable 07/24/18 11:08 Hypochromasia Not Reportable 07/24/18 11:08 Poikilocytosis Not Reportable 07/24/18 11:08 Anisocytosis Not Reportable 07/24/18 11:08 Microcytosis Not Reportable 07/24/18 11:08 Macrocytosis Not Reportable 07/24/18 11:08 Spherocytes Not Reportable 07/24/18 11:08 Pappenheimer Bodies Not Reportable 07/24/18 11:08 Sickle Cells Not Reportable 07/24/18 11:08 Target Cells Not Reportable 07/24/18 11:08 Tear Drop Cells Not Reportable 07/24/18 11:08 Ovalocytes Not Reportable 07/24/18 11:08 Helmet Cells Not Reportable 07/24/18 11:08 [place] Bodies Not Reportable 07/24/18 11:08 [place] Rings Not Reportable 07/24/18 11:08 [place] Cells Not Reportable 07/24/18 11:08 Bite Cells Not Reportable 07/24/18 11:08 Crenated Cell Not Reportable 07/24/18 11:08 Elliptocytes Few 07/24/18 11:08 Acanthocytes (Spur) Few 07/24/18 11:08 Rouleaux Not Reportable 07/24/18 11:08 Hemoglobin C Crystals Not Reportable 07/24/18 11:08 Schistocytes Not Reportable 07/24/18 11:08 Malaria parasites Not Reportable 07/24/18 11:08 Brock Bodies Not Reportable 07/24/18 11:08 Hem Pathologist Commnt No 07/24/18 11:08 PT 16.6 Sec. (12.2-14.9) H 07/24/18 11:08 INR 1.26 (0.87-1.13) H 07/24/18 11:08 APTT 24.9 Sec. (24.2-36.6) 07/24/18 11:08 Sodium 139 mmol/L (137-145) 07/24/18 11:08 Potassium 3.9 mmol/L (3.6-5.0) 07/24/18 11:08 Chloride 106.0 mmol/L (98-107) 07/24/18 11:08 Carbon Dioxide 20 mmol/L (22-30) L 07/24/18 11:08 Anion Gap 17 mmol/L 07/24/18 11:08 BUN 14 mg/dL (7-17) 07/24/18 11:08 Creatinine 0.8 mg/dL (0.7-1.2) 07/24/18 11:08 Estimated GFR > 60 ml/min 07/24/18 11:08 BUN/Creatinine Ratio 18 % 07/24/18 11:08 Glucose 141 mg/dL (65-100) H 07/24/18 11:08 POC Glucose 114 (70-105) H 07/24/18 12:08 Calcium 9.4 mg/dL (8.4-10.2) 07/24/18 11:08 Total Bilirubin 1.50 mg/dL (0.1-1.2) H 07/24/18 11:08 AST 24 units/L (5-40) 07/24/18 11:08 ALT 16 units/L (7-56) 07/24/18 11:08 Alkaline Phosphatase 97 units/L (35-129) 07/24/18 11:08 Ammonia 139.0 umol/L (25-60) H 07/24/18 11:08 Total Creatine Kinase 88 units/L (30-135) 07/24/18 11:08 CK-MB (CK-2) 3.6 ng/mL (0.0-4.0) 07/24/18 11:08 CK-MB (CK-2) Rel Index 4.0 (0-4) 07/24/18 11:08 Troponin T < 0.010 ng/mL (0.00-0.029) 07/24/18 11:08 Total Protein 6.5 g/dL (6.3-8.2) 07/24/18 11:08 Albumin 3.7 g/dL (3.9-5) L 07/24/18 11:08 Albumin/Globulin Ratio 1.3 % 07/24/18 11:08 TSH 9.060 mlU/mL (0.270-4.200) H 07/24/18 11:08 Free T4 1.08 ng/dL (0.76-1.46) 07/24/18 11:08 Urine Color Yellow (Yellow) 07/24/18 Unknown Urine Turbidity Clear (Clear) 07/24/18 Unknown Urine pH 5.0 (5.0-7.0) 07/24/18 Unknown Ur Specific [place] 1.024 (1.003-1.030) 07/24/18 Unknown Urine Protein <15 mg/dl mg/dL (Negative) 07/24/18 Unknown Urine Glucose (UA) Neg mg/dL (Negative) 07/24/18 Unknown Urine Ketones Neg mg/dL (Negative) 07/24/18 Unknown Urine Blood Neg (Negative) 07/24/18 Unknown Urine Nitrite Neg (Negative) 07/24/18 Unknown Urine Bilirubin Neg (Negative) 07/24/18 Unknown Urine Urobilinogen < 2.0 mg/dL (<2.0) 07/24/18 Unknown Ur Leukocyte Esterase Neg (Negative) 07/24/18 Unknown Urine WBC (Auto) 1.0 /HPF (0.0-6.0) 07/24/18 Unknown Urine RBC (Auto) 1.0 /HPF (0.0-6.0) 07/24/18 Unknown Hyaline Casts 1 /LPF 07/24/18 Unknown Urine Mucus Few /HPF 07/24/18 Unknown Salicylates < 0.3 mg/dL (2.8-20.0) L 07/24/18 11:08 Urine Opiates Screen Presumptive negative 07/24/18 Unknown Urine Methadone Screen Presumptive negative 07/24/18 Unknown Acetaminophen < 5.0 ug/mL (10.0-30.0) L 07/24/18 11:08 Ur Barbiturates Screen Presumptive negative 07/24/18 Unknown Ur Phencyclidine Scrn Presumptive negative 07/24/18 Unknown Ur Amphetamines Screen Presumptive negative 07/24/18 Unknown U Benzodiazepines Scrn Presumptive negative 07/24/18 Unknown Urine Cocaine Screen Presumptive negative 07/24/18 Unknown U Marijuana (THC) Screen Presumptive negative 07/24/18 Unknown Drugs of Abuse Note Disclamer 07/24/18 Unknown Plasma/Serum Alcohol < 0.01 % (0-0.07) 07/24/18 11:08
--- NOTE | 2018-07-24 16:33 | History and Physical Report ---
History of Present Illness Date of examination: 07/24/18 Date of admission: 07/24/18 12:52 Chief complaint: Altered sensorium for one day History of present illness: 62-year-old female with a past medical history of alcohol abuse, anemia, aneurysm 2, alcohol induced dementia, seizures, bipolar disorder, and brain injury sent to the hospital for altered mental status. Personal custodial provider called EMS. Patient is oriented to self only. Answers questions minimally and follow some basic commands. She denies any pain. Past Medical History Hypertension CVA GERD Liver Disease Arthritis Seizures Dementia Alcohol- induced dementia Thrombocytopenia, ,Brain aneurysm x2, ETOH abuse Surgical History Additional Surgical History: Brain aneurysm x 2Hysterectomy 11/21/13 Social History Smoking Status: Unknown if ever smoked Family History Htn Medications Home Medications: Home Medications Medication Instructions Recorded Confirmed Last Taken Type Folic Acid [Folvite] 1 mg PO QDAY 11/02/13 08/11/17 06/22/17 History Multivitamin [Multi-Vitamin Daily] 1 each PO DAILY 11/02/13 08/11/17 06/22/17 History Aspirin [Aspirin BABY CHEW TAB] 1 tab PO DAILY 05/10/14 08/11/17 06/22/17 History Furosemide [Lasix] 20 mg PO QDAY 08/11/17 08/11/17 Unknown History Famotidine [Pepcid] 40 mg PO QHS #30 tablet 08/16/17 Unknown Rx Lactulose [Cephulac] 30 gm PO TID #900 oral.liqd 08/16/17 Unknown Rx Levothyroxine [Synthroid] 75 mcg PO DAILY@0600 #30 tablet 08/16/17 Unknown Rx Plavix 75 mg PO DAILY #30 08/16/17 Unknown Rx Propranolol LA [Inderal LA] 60 mg PO QDAY #30 capsule 08/16/17 Unknown Rx Spironolactone [Aldactone] 100 mg PO QDAY #30 tablet 08/16/17 Unknown Rx Thiamine [Vitamin B-1] 100 mg PO QDAY #30 tablet 08/16/17 Unknown Rx lamoTRIgine [LaMICtal] 25 mg PO BID #50 tablet 08/16/17 Unknown Rx levETIRAcetam [Keppra TAB] 1,500 mg PO BID #60 tablet 08/16/17 Unknown Rx traZODone [Desyrel] 50 mg PO QHS PRN #30 tablet 08/16/17 Unknown Rx Review of Systems ROS: Stated complaint: ALTERED MENTAL STATUS Other details as noted in HPI Comment: Unobtainable due to pts medical conditions Medications and Allergies Allergies Allergy/AdvReac Type Severity Reaction Status Date / Time No Known Allergies Allergy Verified 06/14/15 10:49 Home Medications Medication Instructions Recorded Confirmed Last Taken Type Folic Acid [Folvite] 1 mg PO QDAY 11/02/13 08/11/17 06/22/17 History Multivitamin [Multi-Vitamin Daily] 1 each PO DAILY 11/02/13 08/11/17 06/22/17 History Aspirin [Aspirin BABY CHEW TAB] 1 tab PO DAILY 05/10/14 08/11/17 06/22/17 History Furosemide [Lasix] 20 mg PO QDAY 08/11/17 08/11/17 Unknown History Famotidine [Pepcid] 40 mg PO QHS #30 tablet 08/16/17 Unknown Rx Lactulose [Cephulac] 30 gm PO TID #900 oral.liqd 08/16/17 Unknown Rx Levothyroxine [Synthroid] 75 mcg PO DAILY@0600 #30 tablet 08/16/17 Unknown Rx Plavix 75 mg PO DAILY #30 08/16/17 Unknown Rx Propranolol LA [Inderal LA] 60 mg PO QDAY #30 capsule 08/16/17 Unknown Rx Spironolactone [Aldactone] 100 mg PO QDAY #30 tablet 08/16/17 Unknown Rx Thiamine [Vitamin B-1] 100 mg PO QDAY #30 tablet 08/16/17 Unknown Rx lamoTRIgine [LaMICtal] 25 mg PO BID #50 tablet 08/16/17 Unknown Rx levETIRAcetam [Keppra TAB] 1,500 mg PO BID #60 tablet 08/16/17 Unknown Rx traZODone [Desyrel] 50 mg PO QHS PRN #30 tablet 08/16/17 Unknown Rx Exam - Constitutional Vitals: Temp Pulse Resp BP Pulse Ox 97.6 F 50 L 13 110/46 96 07/24/18 11:36 07/24/18 14:15 07/24/18 14:15 07/24/18 14:31 07/24/18 13:15 General appearance: Present: no acute distress, well-nourished - EENT Eyes: Present: PERRL ENT: hearing intact, clear oral mucosa - Neck Neck: Present: supple, normal ROM - Respiratory Respiratory effort: normal Respiratory: bilateral: CTA - Cardiovascular Heart rate: 78 Rhythm: regular Heart Sounds: Present: S1 & S2. Absent: rub, click - Extremities Extremities: no ischemia, pulses intact, pulses symmetrical, No edema Peripheral Pulses: within normal limits - Abdominal General gastrointestinal: Present: soft, non-tender, non-distended, normal bowel sounds Female genitourinary: Present: normal - Rectal Rectal Exam: deferred - Integumentary Integumentary: Present: clear, warm, dry - Musculoskeletal Musculoskeletal: strength equal bilaterally, generalized weakness - Psychiatric Psychiatric: cooperative, depressed - Neurologic Neurologic: CNII-XII intact, moves all extremities, other (Alert but not oriented) - Allied Health Allied health notes reviewed: nursing, case management Results - Labs CBC & Chem 7: 07/24/18 11:08 07/24/18 11:08 Labs: Laboratory Last Values WBC 3.6 K/mm3 (4.5-11.0) L 07/24/18 11:08 RBC 4.48 M/mm3 (3.65-5.03) 07/24/18 11:08 Hgb 13.1 gm/dl (10.1-14.3) 07/24/18 11:08 Hct 39.7 % (30.3-42.9) 07/24/18 11:08 MCV 89 fl (79-97) 07/24/18 11:08 MCH 29 pg (28-32) 07/24/18 11:08 MCHC 33 % (30-34) 07/24/18 11:08 RDW 17.5 % (13.2-15.2) H 07/24/18 11:08 Plt Count 132 K/mm3 (140-440) L 07/24/18 11:08 [place] % (Auto) Rug Weaver 07/24/18 11:08 Add Manual Diff Complete 07/24/18 11:08 Total Counted 100 07/24/18 11:08 Seg Neuts % (Manual) 63.0 % (40.0-70.0) 07/24/18 11:08 Band Neutrophils % 0 % 07/24/18 11:08 Lymphocytes % (Manual) 23.0 % (13.4-35.0) 07/24/18 11:08 Reactive Lymphs % (Man) 5.0 % 07/24/18 11:08 Monocytes % (Manual) 9.0 % (0.0-7.3) H 07/24/18 11:08 Eosinophils % (Manual) 0 % (0.0-4.3) 07/24/18 11:08 Basophils % (Manual) 0 % (0.0-1.8) 07/24/18 11:08 Metamyelocytes % 0 % 07/24/18 11:08 Myelocytes % 0 % 07/24/18 11:08 Promyelocytes % 0 % 07/24/18 11:08 Blast Cells % 0 % 07/24/18 11:08 Nucleated RBC % 1.0 % (0.0-0.9) H 07/24/18 11:08 Seg Neutrophils # Man 2.3 K/mm3 (1.8-7.7) 07/24/18 11:08 Band Neutrophils # 0.0 K/mm3 07/24/18 11:08 Lymphocytes # (Manual) 0.8 K/mm3 (1.2-5.4) L 07/24/18 11:08 Abs React Lymphs (Man) 0.2 K/mm3 07/24/18 11:08 Monocytes # (Manual) 0.3 K/mm3 (0.0-0.8) 07/24/18 11:08 Eosinophils # (Manual) 0.0 K/mm3 (0.0-0.4) 07/24/18 11:08 Basophils # (Manual) 0.0 K/mm3 (0.0-0.1) 07/24/18 11:08 Metamyelocytes # 0.0 K/mm3 07/24/18 11:08 Myelocytes # 0.0 K/mm3 07/24/18 11:08 Promyelocytes # 0.0 K/mm3 07/24/18 11:08 Blast Cells # 0.0 K/mm3 07/24/18 11:08 WBC Morphology Not Reportable 07/24/18 11:08 Hypersegmented Neuts Not Reportable 07/24/18 11:08 Hyposegmented Neuts Not Reportable 07/24/18 11:08 Hypogranular Neuts Not Reportable 07/24/18 11:08 Smudge Cells Not Reportable 07/24/18 11:08 Toxic Granulation Not Reportable 07/24/18 11:08 Toxic Vacuolation Not Reportable 07/24/18 11:08 Dohle Bodies Not Reportable 07/24/18 11:08 Pelger-Huet Anomaly Not Reportable 07/24/18 11:08 Lamine Rods Not Reportable 07/24/18 11:08 Platelet Estimate Consistent w auto 07/24/18 11:08 Clumped Platelets Not Reportable 07/24/18 11:08 Plt Clumps, EDTA Not Reportable 07/24/18 11:08 Large Platelets Not Reportable 07/24/18 11:08 Giant Platelets Not Reportable 07/24/18 11:08 Platelet Satelliting Not Reportable 07/24/18 11:08 Plt Morphology Comment Not Reportable 07/24/18 11:08 RBC Morphology Not Reportable 07/24/18 11:08 Dimorphic RBCs Not Reportable 07/24/18 11:08 Polychromasia Not Reportable 07/24/18 11:08 Hypochromasia Not Reportable 07/24/18 11:08 Poikilocytosis Not Reportable 07/24/18 11:08 Anisocytosis Not Reportable 07/24/18 11:08 Microcytosis Not Reportable 07/24/18 11:08 Macrocytosis Not Reportable 07/24/18 11:08 Spherocytes Not Reportable 07/24/18 11:08 Pappenheimer Bodies Not Reportable 07/24/18 11:08 Sickle Cells Not Reportable 07/24/18 11:08 Target Cells Not Reportable 07/24/18 11:08 Tear Drop Cells Not Reportable 07/24/18 11:08 Ovalocytes Not Reportable 07/24/18 11:08 Helmet Cells Not Reportable 07/24/18 11:08 Polo-[place] Bodies Not Reportable 07/24/18 11:08 Guinda Rings Not Reportable 07/24/18 11:08 Terry Cells Not Reportable 07/24/18 11:08 Bite Cells Not Reportable 07/24/18 11:08 Crenated Cell Not Reportable 07/24/18 11:08 Elliptocytes Few 07/24/18 11:08 Acanthocytes (Spur) Few 07/24/18 11:08 Rouleaux Not Reportable 07/24/18 11:08 Hemoglobin C Crystals Not Reportable 07/24/18 11:08 Schistocytes Not Reportable 07/24/18 11:08 Malaria parasites Not Reportable 07/24/18 11:08 Brock Bodies Not Reportable 07/24/18 11:08 Hem Pathologist Commnt No 07/24/18 11:08 PT 16.6 Sec. (12.2-14.9) H 07/24/18 11:08 INR 1.26 (0.87-1.13) H 07/24/18 11:08 APTT 24.9 Sec. (24.2-36.6) 07/24/18 11:08 Sodium 139 mmol/L (137-145) 07/24/18 11:08 Potassium 3.9 mmol/L (3.6-5.0) 07/24/18 11:08 Chloride 106.0 mmol/L (98-107) 07/24/18 11:08 Carbon Dioxide 20 mmol/L (22-30) L 07/24/18 11:08 Anion Gap 17 mmol/L 07/24/18 11:08 BUN 14 mg/dL (7-17) 07/24/18 11:08 Creatinine 0.8 mg/dL (0.7-1.2) 07/24/18 11:08 Estimated GFR > 60 ml/min 07/24/18 11:08 BUN/Creatinine Ratio 18 % 07/24/18 11:08 Glucose 141 mg/dL (65-100) H 07/24/18 11:08 POC Glucose 114 (70-105) H 07/24/18 12:08 Calcium 9.4 mg/dL (8.4-10.2) 07/24/18 11:08 Total Bilirubin 1.50 mg/dL (0.1-1.2) H 07/24/18 11:08 AST 24 units/L (5-40) 07/24/18 11:08 ALT 16 units/L (7-56) 07/24/18 11:08 Alkaline Phosphatase 97 units/L (35-129) 07/24/18 11:08 Ammonia 139.0 umol/L (25-60) H 07/24/18 11:08 Total Creatine Kinase 88 units/L (30-135) 07/24/18 11:08 CK-MB (CK-2) 3.6 ng/mL (0.0-4.0) 07/24/18 11:08 CK-MB (CK-2) Rel Index 4.0 (0-4) 07/24/18 11:08 Troponin T < 0.010 ng/mL (0.00-0.029) 07/24/18 11:08 Total Protein 6.5 g/dL (6.3-8.2) 07/24/18 11:08 Albumin 3.7 g/dL (3.9-5) L 07/24/18 11:08 Albumin/Globulin Ratio 1.3 % 07/24/18 11:08 TSH 9.060 mlU/mL (0.270-4.200) H 07/24/18 11:08 Free T4 1.08 ng/dL (0.76-1.46) 07/24/18 11:08 Urine Color Yellow (Yellow) 07/24/18 Unknown Urine Turbidity Clear (Clear) 07/24/18 Unknown Urine pH 5.0 (5.0-7.0) 07/24/18 Unknown Ur Specific Godwin 1.024 (1.003-1.030) 07/24/18 Unknown Urine Protein <15 mg/dl mg/dL (Negative) 07/24/18 Unknown Urine Glucose (UA) Neg mg/dL (Negative) 07/24/18 Unknown Urine Ketones Neg mg/dL (Negative) 07/24/18 Unknown Urine Blood Neg (Negative) 07/24/18 Unknown Urine Nitrite Neg (Negative) 07/24/18 Unknown Urine Bilirubin Neg (Negative) 07/24/18 Unknown Urine Urobilinogen < 2.0 mg/dL (<2.0) 07/24/18 Unknown Ur Leukocyte Esterase Neg (Negative) 07/24/18 Unknown Urine WBC (Auto) 1.0 /HPF (0.0-6.0) 07/24/18 Unknown Urine RBC (Auto) 1.0 /HPF (0.0-6.0) 07/24/18 Unknown Hyaline Casts 1 /LPF 07/24/18 Unknown Urine Mucus Few /HPF 07/24/18 Unknown Salicylates < 0.3 mg/dL (2.8-20.0) L 07/24/18 11:08 Urine Opiates Screen Presumptive negative 07/24/18 Unknown Urine Methadone Screen Presumptive negative 07/24/18 Unknown Acetaminophen < 5.0 ug/mL (10.0-30.0) L 07/24/18 11:08 Ur Barbiturates Screen Presumptive negative 07/24/18 Unknown Ur Phencyclidine Scrn Presumptive negative 07/24/18 Unknown Ur Amphetamines Screen Presumptive negative 07/24/18 Unknown U Benzodiazepines Scrn Presumptive negative 07/24/18 Unknown Urine Cocaine Screen Presumptive negative 07/24/18 Unknown U Marijuana (THC) Screen Presumptive negative 07/24/18 Unknown Drugs of Abuse Note Disclamer 07/24/18 Unknown Plasma/Serum Alcohol < 0.01 % (0-0.07) 07/24/18 11:08 Short CBC 07/24/18 Range/Units 11:08 WBC 3.6 L (4.5-11.0) K/mm3 Hgb 13.1 (10.1-14.3) gm/dl Hct 39.7 (30.3-42.9) % Plt Count 132 L (140-440) K/mm3 BMP 07/24/18 11:08 Sodium 139 Potassium 3.9 Chloride 106.0 Carbon Dioxide 20 L BUN 14 Creatinine 0.8 Glucose 141 H Calcium 9.4 Cardiac Enzymes 07/24/18 07/24/18 Range/Units 11:08 11:08 Total Creatine Kinase 88 (30-135) units/L CK-MB (CK-2) 3.6 (0.0-4.0) ng/mL Troponin T < 0.010 (0.00-0.029) ng/mL Liver Function 07/24/18 Range/Units 11:08 Total Bilirubin 1.50 H (0.1-1.2) mg/dL AST 24 (5-40) units/L ALT 16 (7-56) units/L Alkaline Phosphatase 97 (35-129) units/L Albumin 3.7 L (3.9-5) g/dL Urine 07/24/18 Range/Units Unknown Urine Color Yellow (Yellow) Urine pH 5.0 (5.0-7.0) Ur Specific Godwin 1.024 (1.003-1.030) Urine Protein <15 mg/dl (Negative) mg/dL Urine Glucose (UA) Neg (Negative) mg/dL - Imaging and Cardiology CT Scan - head: report reviewed Imaging and Cardiology: IMPRESSION: No acute CVA, intracranial bleed, or brain mass Chronic postoperative findings as above Assessment and Plan Advance Directives: Yes Plan of care discussed with patient/family: Yes - Patient Problems (1) Hepatic encephalopathy syndrome Current Visit: Yes Status: Acute Plan to address problem: Moderate Continue Lactulose Xifaxan if necessary Monitor Ammonia level (2) Thrombocytopenia Current Visit: Yes Status: Chronic Plan to address problem: Etoh induced Mild to moderate SCD's only No Lovenox (3) Seizure disorder Current Visit: Yes Status: Acute Plan to address problem: Cont Keppra and Lamictal (4) Hypertension Current Visit: No Status: Chronic Plan to address problem: Cont antihypertensives (5) Hypothyroidism (acquired) Current Visit: Yes Status: Chronic Plan to address problem: TSH high Increase Synthyroid to 100 mcg po qd (6) Cirrhosis Current Visit: Yes Status: Resolved Qualifiers: Hepatic cirrhosis type: alcoholic cirrhosis Plan to address problem: Cont Lasix (7) DVT prophylaxis Current Visit: Yes Status: Acute Plan to address problem: On SCD's and GI prophylaxis
[2018-07-24] MEDS ORDERED: SODIUM CHLORIDE FLUSH SYRINGE 10 ML IV PRN (16:40)
[2018-07-24] MEDS ORDERED: ZOFRAN IV PRN (16:40)
[2018-07-24] MEDS ORDERED: INDERAL LA PO SCH (17:00)
[2018-07-24] MEDS ORDERED: NON-FORMULARY (Multivitamin [Multi-Vitamin Daily] 1 EACH) PO SCH (17:00)
[2018-07-24] MEDS ORDERED: NON-FORMULARY (Plavix 75 MG) PO SCH ×2 (17:00→17:15)
[2018-07-24] MEDS ORDERED: NACL 0.9% 1000 ML 1,000 ML IV SCH (17:00)
[2018-07-24] MEDS: DILAUDID IV PRN (18:10)
[2018-07-24] MEDS: FOLVITE PO SCH (18:28)
[2018-07-24] MEDS: PLAVIX PO SCH (18:28)
[2018-07-24] MEDS: VITAMIN B-1 PO SCH (18:28)
[2018-07-24] MEDS: BABY ASPIRIN PO SCH (18:29)
[2018-07-24] MEDS: ALDACTONE PO SCH (18:46)
[2018-07-24] MEDS: CEPHULAC PR SCH ×3 (18:46→23:31)
[2018-07-24] MEDS: LASIX PO SCH (18:47)
[2018-07-24] MEDS ORDERED: NON-FORMULARY (Levetiracetam [Keppra Tab] 1,500 MG) PO SCH (22:00)
[2018-07-24] MEDS: PEPCID IV SCH (23:30)
[2018-07-24] MEDS: LaMICtal PO SCH (23:30)
[2018-07-24] MEDS: SODIUM CHLORIDE FLUSH SYRINGE 10 ML IV SCH (23:31)
[2018-07-24] MEDS: KEPPRA PO SCH (23:31)
[2018-07-25] MEDS ORDERED: ATIVAN IV PRN ×2 (00:01)
[2018-07-25 05:30] LABS: Hematocrit 43.3 % (30.3-42.9); Hemoglobin 14.2 gm/dl (10.1-14.3); Mean Corpuscular HGB Conc 33 % (30-34); Mean Corpuscular Volume 88 fl (79-97); Platelet Count 176 K/mm3 (140-440); Red Cell Distribution Width 17.6 % (13.2-15.2)
[2018-07-25 05:50] LABS: Alanine Aminotransferase 17 units/L (7-56); Albumin 3.9 g/dL (3.9-5); BUN/Creatinine Ratio 17; Blood Urea Nitrogen 12 mg/dL (7-17); Calcium 9.7 mg/dL (8.4-10.2); Hemolysis Index 16
[2018-07-25] MEDS ORDERED: SYNTHROID PO SCH (06:00)
[2018-07-25] MEDS: CEPHULAC PR SCH ×4 (06:22→23:41)
[2018-07-25] MEDS: SYNTHROID PO SCH (06:22)
[2018-07-25 06:55] LABS: Basophils % (Manual) 0 % (0.0-1.8); Eosinophils % (Manual) 0 % (0.0-4.3); Total Cells Counted 100
[2018-07-25 06:56] LABS: Anisocytosis 1+; Platelet Estimate Consistent w Auto; Poikilocytosis 1+
[2018-07-25] MEDS: ALDACTONE PO SCH (10:20)
[2018-07-25] MEDS: LASIX PO SCH (10:20)
[2018-07-25] MEDS: KEPPRA PO SCH ×2 (10:21→23:26)
[2018-07-25] MEDS: VITAMIN B-1 PO SCH (10:21)
[2018-07-25] MEDS: SODIUM CHLORIDE FLUSH SYRINGE 10 ML IV SCH ×2 (10:21→23:27)
[2018-07-25] MEDS: LaMICtal PO SCH ×2 (10:22→23:25)
[2018-07-25] MEDS: FOLVITE PO SCH (10:22)
[2018-07-25] MEDS: BABY ASPIRIN PO SCH (10:22)
[2018-07-25] MEDS: PLAVIX PO SCH (10:22)
[2018-07-25] MEDS: THERAGRAN Tab PO SCH (10:22)
[2018-07-25] MEDS: PEPCID IV SCH (10:22)
--- NOTE | 2018-07-25 15:43 | Consultation ---
History of Present Illness - Reason for Consult Consult date: 07/25/18 encephalopathy Requesting physician: GLENIS AYON - History of Present Illness Ms. Cortes is a 62-year-old woman who was brought in by her roommate for change in mental status. She has a well-known history of cirrhosis due to alcohol with hepatic encephalopathy in the past. She has a history of varices in the distant past and was treated with banding and is on beta blockers. No clear history is available to elucidate the exact cause of his bout of encephalopathy. There is no report from the ED of any history of fevers or abdominal pain cough diarrhea and nausea vomiting or shortness of breath. There is no history of GI bleed. Currently, patient is almost nonverbal but awake. She does not respond appropriately. Past History Past Medical History: other (cirrhosis due to EtOH) Past Surgical History: Other (brain surgery) Social history: alcohol abuse (former). denies: smoking Family history: no significant family history Medications and Allergies Allergies Allergy/AdvReac Type Severity Reaction Status Date / Time No Known Allergies Allergy Verified 06/14/15 10:49 Home Medications Medication Instructions Recorded Confirmed Last Taken Type Folic Acid [Folvite] 1 mg PO QDAY 11/02/13 08/11/17 06/22/17 History Multivitamin [Multi-Vitamin Daily] 1 each PO DAILY 11/02/13 08/11/17 06/22/17 History Aspirin [Aspirin BABY CHEW TAB] 1 tab PO DAILY 05/10/14 08/11/17 06/22/17 History Furosemide [Lasix] 20 mg PO QDAY 08/11/17 08/11/17 Unknown History Famotidine [Pepcid] 40 mg PO QHS #30 tablet 08/16/17 Unknown Rx Lactulose [Cephulac] 30 gm PO TID #900 oral.liqd 08/16/17 Unknown Rx Levothyroxine [Synthroid] 75 mcg PO DAILY@0600 #30 tablet 08/16/17 Unknown Rx Plavix 75 mg PO DAILY #30 08/16/17 Unknown Rx Propranolol LA [Inderal LA] 60 mg PO QDAY #30 capsule 08/16/17 Unknown Rx Spironolactone [Aldactone] 100 mg PO QDAY #30 tablet 08/16/17 Unknown Rx Thiamine [Vitamin B-1] 100 mg PO QDAY #30 tablet 08/16/17 Unknown Rx lamoTRIgine [LaMICtal] 25 mg PO BID #50 tablet 08/16/17 Unknown Rx levETIRAcetam [Keppra TAB] 1,500 mg PO BID #60 tablet 08/16/17 Unknown Rx traZODone [Desyrel] 50 mg PO QHS PRN #30 tablet 08/16/17 Unknown Rx Active Meds: Active Medications Acetaminophen (Tylenol) 650 mg PO Q4H PRN PRN Reason: Pain MILD(1-3)/Fever >100.5/PÉREZ Aspirin (Baby Aspirin) 81 mg PO DAILY [facility] Last Admin: 07/25/18 10:22 Dose: 81 mg Documented by: Clopidogrel Bisulfate (Plavix) 75 mg PO DAILY [facility] Last Admin: 07/25/18 10:22 Dose: 75 mg Documented by: Famotidine (Pepcid) 20 mg IV BID [facility] Last Admin: 07/25/18 10:22 Dose: 20 mg Documented by: Folic Acid (Folvite) 1 mg PO QDAY [facility] Last Admin: 07/25/18 10:22 Dose: 1 mg Documented by: Furosemide (Lasix) 20 mg PO QDAY [facility] Last Admin: 07/25/18 10:20 Dose: Not Given Documented by: Hydromorphone HCl (Dilaudid) 0.25 mg IV Q3H PRN PRN Reason: Pain, Moderate (4-6) Last Admin: 07/24/18 18:10 Dose: 0.25 mg Documented by: Sodium Chloride (Nacl 0.9% 1000 Ml) 1,000 mls @ 75 mls/hr IV DIRECT [facility] Stop: 07/25/18 17:00 Last Admin: 07/25/18 06:28 Dose: 75 mls/hr Documented by: Lactulose (Cephulac) 200 gm [place] Q6H [facility] Last Admin: 07/25/18 12:30 Dose: 200 gm Documented by: Lamotrigine (Lamictal) 25 mg PO BID [facility] Last Admin: 07/25/18 10:22 Dose: 25 mg Documented by: Levetiracetam (Keppra) 1,500 mg PO BID [facility] Last Admin: 07/25/18 10:21 Dose: 1,500 mg Documented by: Levothyroxine Sodium (Synthroid) 100 mcg PO DAILY@0600 [facility] Last Admin: 07/25/18 06:22 Dose: 100 mcg Documented by: Lorazepam (Ativan) 2 mg IV Q1H PRN PRN Reason: CIWA-Ar 8-15 Lorazepam (Ativan) 4 mg IV Q1H PRN PRN Reason: CIWA-Ar 16-25 Multivitamins (Theragran Tab) 1 each PO DAILY [facility] Last Admin: 07/25/18 10:22 Dose: 1 each Documented by: Ondansetron HCl (Zofran) 4 mg IV Q8H PRN PRN Reason: Nausea And Vomiting Sodium Chloride (Sodium Chloride Flush Syringe 10 Ml) 10 ml IV BID [facility] Last Admin: 07/25/18 10:21 Dose: 10 ml Documented by: Sodium Chloride (Sodium Chloride Flush Syringe 10 Ml) 10 ml IV PRN PRN PRN Reason: LINE FLUSH Spironolactone (Aldactone) 100 mg PO QDAY [facility] Last Admin: 07/25/18 10:20 Dose: Not Given Documented by: Thiamine HCl (Vitamin B-1) 100 mg PO QDAY [facility] Last Admin: 07/25/18 10:21 Dose: 100 mg Documented by: Trazodone HCl (Desyrel) 50 mg PO QHS PRN PRN Reason: Sleep Review of Systems ROS unobtainable: due to mental status Exam - Constitutional Vitals: Temp Pulse Resp BP Pulse Ox 97.0 F L 43 L 20 90/53 93 07/24/18 18:17 07/24/18 22:20 07/25/18 05:41 07/25/18 05:41 07/24/18 22:20 General appearance: Present: no acute distress - EENT Eyes: Present: PERRL, EOM intact ENT: hearing intact - Respiratory Respiratory effort: normal Respiratory: bilateral: CTA - Cardiovascular Rhythm: regular Heart Sounds: Present: S1 & S2 - Extremities Extremities: No edema - Abdominal General gastrointestinal: Present: soft, non-tender Results - Labs CBC & Chem 7: 07/25/18 05:06 07/25/18 05:05 Labs: Abnormal lab results 07/25/18 07/25/18 Range/Units 05:05 05:06 Hct 43.3 H (30.3-42.9) % RDW 17.6 H (13.2-15.2) % Seg Neuts % (Manual) 77.0 H (40.0-70.0) % Lymphocytes # (Manual) 1.0 L (1.2-5.4) K/mm3 Carbon Dioxide 21 L (22-30) mmol/L Total Bilirubin 1.80 H (0.1-1.2) mg/dL Assessment and Plan 1. Hepatic encephalopathy - due to cirrhosis, with hx of EtOH. NH3 is elevated. - lactulose, and if no improvement, Xifaxan - monitor for infection 2. Cirrhosis - with hx of varices. - per last note, she was to have been on B-blockers - nadolol. Need to review if stopped for some reason.
--- NOTE | 2018-07-25 16:11 | Progress Note ---
Assessment and Plan Assessment and plan: Patient is a 62 yo woman with a history of alcohol abuse with dementia, Brain aneuyrsm x 2, CVA, hypertension, GERD, Arthritis, Seizures disoder and bipolar disorder with a history of AMS. Hepatic encephalopathy: serial ammonia level, GI consult Thrombocytopenia: ETOH induced, monitor cbc Seizure Disorder: continue antiepilepticus Cirrhosis: GI is following History Interval history: Patient was seen and examined. Follow-up on current diagnosis of ams. Overnight uneventful. Patient denies any chest pain, shortness breath, nausea/vomiting or severe headaches. Imaging, nursing note, chart, labs and old chart reviewed. Discussed with patient. Hospitalist Physical - Physical exam Narrative exam: Gen: chronic disable NAD, Awake, Alert, Orientated x 0 HEENT: NCAT, EOMI, PERRL, OP Clear Neck: supple, no adenopathy, no thyromegaly, no JVD CVS/Heart: Regular bradycardia, normal S1S2, pulses present bilaterally Chest/Lungs: CTA B, Symmetrical chest expansion, good air entry bilaterally GI/Abdomen: soft, NTND, good bowel sounds, no guarding or rebound /Bladder: no suprapubic tenderness, no CVA or paraspinal tenderness Extermity/Skin: no c/c/e, no obvious rash MSK: FROM x 4 Neuro: CN 2-12 grossly intact, no new focal deficits Psych: calm - Constitutional Vitals: Temp Pulse Resp BP Pulse Ox 97.0 F L 43 L 20 90/53 93 07/24/18 18:17 07/24/18 22:20 07/25/18 05:41 07/25/18 05:41 07/24/18 22:20 General appearance: Present: no acute distress Results - Labs CBC & Chem 7: 07/25/18 05:06 07/25/18 05:05 Labs: Laboratory Last Values WBC 6.1 K/mm3 (4.5-11.0) 07/25/18 05:06 RBC 4.90 M/mm3 (3.65-5.03) 07/25/18 05:06 Hgb 14.2 gm/dl (10.1-14.3) 07/25/18 05:06 Hct 43.3 % (30.3-42.9) H 07/25/18 05:06 MCV 88 fl (79-97) 07/25/18 05:06 MCH 29 pg (28-32) 07/25/18 05:06 MCHC 33 % (30-34) 07/25/18 05:06 RDW 17.6 % (13.2-15.2) H 07/25/18 05:06 Plt Count 176 K/mm3 (140-440) 07/25/18 05:06 [place] % (Auto) Curb And Gutter Laborer 07/25/18 05:06 Add Manual Diff Complete 07/25/18 05:06 Total Counted 100 07/25/18 05:06 Seg Neuts % (Manual) 77.0 % (40.0-70.0) H 07/25/18 05:06 Band Neutrophils % 0 % 07/25/18 05:06 Lymphocytes % (Manual) 16.0 % (13.4-35.0) 07/25/18 05:06 Reactive Lymphs % (Man) 0 % 07/25/18 05:06 Monocytes % (Manual) 7.0 % (0.0-7.3) 07/25/18 05:06 Eosinophils % (Manual) 0 % (0.0-4.3) 07/25/18 05:06 Basophils % (Manual) 0 % (0.0-1.8) 07/25/18 05:06 Metamyelocytes % 0 % 07/25/18 05:06 Myelocytes % 0 % 07/25/18 05:06 Promyelocytes % 0 % 07/25/18 05:06 Blast Cells % 0 % 07/25/18 05:06 Nucleated RBC % Not Reportable 07/25/18 05:06 Seg Neutrophils # Man 4.7 K/mm3 (1.8-7.7) 07/25/18 05:06 Band Neutrophils # 0.0 K/mm3 07/25/18 05:06 Lymphocytes # (Manual) 1.0 K/mm3 (1.2-5.4) L 07/25/18 05:06 Abs React Lymphs (Man) 0.0 K/mm3 07/25/18 05:06 Monocytes # (Manual) 0.4 K/mm3 (0.0-0.8) 07/25/18 05:06 Eosinophils # (Manual) 0.0 K/mm3 (0.0-0.4) 07/25/18 05:06 Basophils # (Manual) 0.0 K/mm3 (0.0-0.1) 07/25/18 05:06 Metamyelocytes # 0.0 K/mm3 07/25/18 05:06 Myelocytes # 0.0 K/mm3 07/25/18 05:06 Promyelocytes # 0.0 K/mm3 07/25/18 05:06 Blast Cells # 0.0 K/mm3 07/25/18 05:06 WBC Morphology Not Reportable 07/25/18 05:06 Hypersegmented Neuts Not Reportable 07/25/18 05:06 Hyposegmented Neuts Not Reportable 07/25/18 05:06 Hypogranular Neuts Not Reportable 07/25/18 05:06 Smudge Cells Not Reportable 07/25/18 05:06 Toxic Granulation Not Reportable 07/25/18 05:06 Toxic Vacuolation Not Reportable 07/25/18 05:06 Dohle Bodies Not Reportable 07/25/18 05:06 Pelger-Huet Anomaly Not Reportable 07/25/18 05:06 Lamine Rods Not Reportable 07/25/18 05:06 Platelet Estimate Consistent w auto 07/25/18 05:06 Clumped Platelets Not Reportable 07/25/18 05:06 Plt Clumps, EDTA Not Reportable 07/25/18 05:06 Large Platelets Not Reportable 07/25/18 05:06 Giant Platelets Not Reportable 07/25/18 05:06 Platelet Satelliting Not Reportable 07/25/18 05:06 Plt Morphology Comment Not Reportable 07/25/18 05:06 RBC Morphology Not Reportable 07/25/18 05:06 Dimorphic RBCs Not Reportable 07/25/18 05:06 Polychromasia Not Reportable 07/25/18 05:06 Hypochromasia Not Reportable 07/25/18 05:06 Poikilocytosis 1+ 07/25/18 05:06 Anisocytosis 1+ 07/25/18 05:06 Microcytosis Not Reportable 07/25/18 05:06 Macrocytosis Not Reportable 07/25/18 05:06 Spherocytes Not Reportable 07/25/18 05:06 Pappenheimer Bodies Not Reportable 07/25/18 05:06 Sickle Cells Not Reportable 07/25/18 05:06 Target Cells Not Reportable 07/25/18 05:06 Tear Drop Cells Not Reportable 07/25/18 05:06 Ovalocytes Not Reportable 07/25/18 05:06 Helmet Cells Not Reportable 07/25/18 05:06 Pool-[place] Bodies Not Reportable 07/25/18 05:06 [place] Rings Not Reportable 07/25/18 05:06 [place] Cells Not Reportable 07/25/18 05:06 Bite Cells Not Reportable 07/25/18 05:06 Crenated Cell Not Reportable 07/25/18 05:06 Elliptocytes 1+ 07/25/18 05:06 Acanthocytes (Spur) Not Reportable 07/25/18 05:06 Rouleaux Not Reportable 07/25/18 05:06 Hemoglobin C Crystals Not Reportable 07/25/18 05:06 Schistocytes Not Reportable 07/25/18 05:06 Malaria parasites Not Reportable 07/25/18 05:06 Brock Bodies Not Reportable 07/25/18 05:06 Hem Pathologist Commnt No 07/25/18 05:06 PT 16.6 Sec. (12.2-14.9) H 07/24/18 11:08 INR 1.26 (0.87-1.13) H 07/24/18 11:08 APTT 24.9 Sec. (24.2-36.6) 07/24/18 11:08 Sodium 143 mmol/L (137-145) 07/25/18 05:05 Potassium 4.1 mmol/L (3.6-5.0) 07/25/18 05:05 Chloride 106.7 mmol/L (98-107) 07/25/18 05:05 Carbon Dioxide 21 mmol/L (22-30) L 07/25/18 05:05 Anion Gap 19 mmol/L 07/25/18 05:05 BUN 12 mg/dL (7-17) 07/25/18 05:05 Creatinine 0.7 mg/dL (0.7-1.2) 07/25/18 05:05 Estimated GFR > 60 ml/min 07/25/18 05:05 BUN/Creatinine Ratio 17 % 07/25/18 05:05 Glucose 93 mg/dL (65-100) 07/25/18 05:05 POC Glucose 114 (70-105) H 07/24/18 12:08 Hemoglobin A1c 5.4 % (4-6) 07/24/18 17:12 Calcium 9.7 mg/dL (8.4-10.2) 07/25/18 05:05 Total Bilirubin 1.80 mg/dL (0.1-1.2) H 07/25/18 05:05 AST 26 units/L (5-40) 07/25/18 05:05 ALT 17 units/L (7-56) 07/25/18 05:05 Alkaline Phosphatase 103 units/L (35-129) 07/25/18 05:05 Ammonia 139.0 umol/L (25-60) H 07/24/18 11:08 Total Creatine Kinase 88 units/L (30-135) 07/24/18 11:08 CK-MB (CK-2) 3.6 ng/mL (0.0-4.0) 07/24/18 11:08 CK-MB (CK-2) Rel Index 4.0 (0-4) 07/24/18 11:08 Troponin T < 0.010 ng/mL (0.00-0.029) 07/24/18 11:08 Total Protein 6.6 g/dL (6.3-8.2) 07/25/18 05:05 Albumin 3.9 g/dL (3.9-5) 07/25/18 05:05 Albumin/Globulin Ratio 1.4 % 07/25/18 05:05 TSH 9.060 mlU/mL (0.270-4.200) H 07/24/18 11:08 Free T4 1.08 ng/dL (0.76-1.46) 07/24/18 11:08 Urine Color Yellow (Yellow) 07/24/18 Unknown Urine Turbidity Clear (Clear) 07/24/18 Unknown Urine pH 5.0 (5.0-7.0) 07/24/18 Unknown Ur Specific [place] 1.024 (1.003-1.030) 07/24/18 Unknown Urine Protein <15 mg/dl mg/dL (Negative) 07/24/18 Unknown Urine Glucose (UA) Neg mg/dL (Negative) 07/24/18 Unknown Urine Ketones Neg mg/dL (Negative) 07/24/18 Unknown Urine Blood Neg (Negative) 07/24/18 Unknown Urine Nitrite Neg (Negative) 07/24/18 Unknown Urine Bilirubin Neg (Negative) 07/24/18 Unknown Urine Urobilinogen < 2.0 mg/dL (<2.0) 07/24/18 Unknown Ur Leukocyte Esterase Neg (Negative) 07/24/18 Unknown Urine WBC (Auto) 1.0 /HPF (0.0-6.0) 07/24/18 Unknown Urine RBC (Auto) 1.0 /HPF (0.0-6.0) 07/24/18 Unknown Hyaline Casts 1 /LPF 07/24/18 Unknown Urine Mucus Few /HPF 07/24/18 Unknown Salicylates < 0.3 mg/dL (2.8-20.0) L 07/24/18 11:08 Urine Opiates Screen Presumptive negative 07/24/18 Unknown Urine Methadone Screen Presumptive negative 07/24/18 Unknown Acetaminophen < 5.0 ug/mL (10.0-30.0) L 07/24/18 11:08 Ur Barbiturates Screen Presumptive negative 07/24/18 Unknown Ur Phencyclidine Scrn Presumptive negative 07/24/18 Unknown Ur Amphetamines Screen Presumptive negative 07/24/18 Unknown U Benzodiazepines Scrn Presumptive negative 07/24/18 Unknown Urine Cocaine Screen Presumptive negative 07/24/18 Unknown U Marijuana (THC) Screen Presumptive negative 07/24/18 Unknown Drugs of Abuse Note Disclamer 07/24/18 Unknown Plasma/Serum Alcohol < 0.01 % (0-0.07) 07/24/18 11:08
[2018-07-25] MEDS: DESYREL PO PRN (23:26)
[2018-07-25] MEDS: CEPHULAC PO SCH (23:45)
[2018-07-26] MEDS: DILAUDID IV PRN (05:00)
[2018-07-26] MEDS: SYNTHROID PO SCH (05:01)
[2018-07-26] MEDS: CEPHULAC PO SCH ×3 (05:01→17:03)
[2018-07-26 05:47] LABS: Hematocrit 41.9 % (30.3-42.9); Hemoglobin 13.9 gm/dl (10.1-14.3); Mean Corpuscular HGB Conc 33 % (30-34); Mean Corpuscular Volume 88 fl (79-97); Platelet Count 165 K/mm3 (140-440); Red Blood Count 4.78 M/mm3 (3.65-5.03); Red Cell Distribution Width 17.5 % (13.2-15.2)
[2018-07-26 06:06] LABS: Alanine Aminotransferase 17 units/L (7-56); Albumin 3.8 g/dL (3.9-5); BUN/Creatinine Ratio 19; Blood Urea Nitrogen 15 mg/dL (7-17); Calcium 9.2 mg/dL (8.4-10.2); Hemolysis Index 4
[2018-07-26] MEDS: PLAVIX PO SCH (10:03)
[2018-07-26] MEDS: KEPPRA PO SCH ×2 (10:03→22:08)
[2018-07-26] MEDS: VITAMIN B-1 PO SCH (10:03)
[2018-07-26] MEDS: LaMICtal PO SCH ×2 (10:04→22:08)
[2018-07-26] MEDS: BABY ASPIRIN PO SCH (10:04)
[2018-07-26] MEDS: FOLVITE PO SCH (10:04)
[2018-07-26] MEDS: THERAGRAN Tab PO SCH (10:04)
[2018-07-26] MEDS: SODIUM CHLORIDE FLUSH SYRINGE 10 ML IV SCH (10:05)
[2018-07-26] MEDS: ALDACTONE PO SCH (10:18)
[2018-07-26] MEDS: LASIX PO SCH (10:23)
--- NOTE | 2018-07-26 13:14 | Gastroenterology Progress Note ---
<ЕЛЕНА SANTA - Last Filed: 07/26/18 13:30> Assessment and Plan 1.Hepatic encephalopathy 2.Hx of cirrhosis 2/2 ETOH with h/o varices -afebrile -WBC WNL -H/H WNL (13.9/41.9) -LFTs stable -ammonia 74-trending down -clinically, patient is stable and more alert today with encephalopathy improving. Denies abd pain, N/V, or active signs of bleeding. Tolerating diet. -continue diuretics -continue lactulose (titrate to goal of BMs x 2-3/day) -start on xifaxan -continue supportive care -patient okay to be d/c per GI standpoint with f/u in clinic with Dr. Barajas ~2- 3weeks -will sign off, please call if needed Subjective Date of service: 07/26/18 Principal diagnosis: hepatic encephalopathy Interval history: Patient sitting up in bed this am w/o acute distress and noted to more alert (oriented to person). Denies abd pain, N/V, or signs of bleeding. Tolerating diet. Objective - Constitutional Vitals: Temp Pulse Resp BP Pulse Ox 97.4 F L 56 L 16 98/55 96 07/26/18 11:56 07/26/18 11:56 07/26/18 11:56 07/26/18 11:56 07/26/18 11:56 General appearance: no acute distress - Respiratory Respiratory: bilateral: CTA (anterior) - Cardiovascular Rhythm: regular - Gastrointestinal General gastrointestinal: Present: soft, non-tender, non-distended, normal bowel sounds - Labs CBC & Chem 7: 07/26/18 05:23 07/26/18 05:23 Labs: Laboratory Results - last 24 hr 07/25/18 07/26/18 07/26/18 16:52 05:23 05:23 WBC 7.3 RBC 4.78 Hgb 13.9 Hct 41.9 MCV 88 MCH 29 MCHC 33 RDW 17.5 H Plt Count 165 Sodium 150 H Potassium 3.5 L Chloride 114.5 H Carbon Dioxide 21 L Anion Gap 18 BUN 15 Creatinine 0.8 Estimated GFR > 60 BUN/Creatinine Ratio 19 Glucose 107 H Calcium 9.2 Total Bilirubin 1.40 H AST 28 ALT 17 Alkaline Phosphatase 103 Ammonia 74.0 H Total Protein 6.7 Albumin 3.8 L Albumin/Globulin Ratio 1.3 <AUDELIA VEGA - Last Filed: 07/26/18 14:18> Assessment and Plan Pt close to baseline, per caregiver. Etiology of encephalopathy exacerbation unclear. Had done well after changing from lactulose to Xifaxan in 08/2017. Plans as noted. Objective - Constitutional Vitals: Temp Pulse Resp BP Pulse Ox 97.4 F L 56 L 16 98/55 96 07/26/18 11:56 07/26/18 11:56 07/26/18 11:56 07/26/18 11:56 07/26/18 11:56 - Labs CBC & Chem 7: 07/26/18 05:23 07/26/18 05:23 Labs: Laboratory Results - last 24 hr 07/25/18 07/26/18 07/26/18 16:52 05:23 05:23 WBC 7.3 RBC 4.78 Hgb 13.9 Hct 41.9 MCV 88 MCH 29 MCHC 33 RDW 17.5 H Plt Count 165 Sodium 150 H Potassium 3.5 L Chloride 114.5 H Carbon Dioxide 21 L Anion Gap 18 BUN 15 Creatinine 0.8 Estimated GFR > 60 BUN/Creatinine Ratio 19 Glucose 107 H Calcium 9.2 Total Bilirubin 1.40 H AST 28 ALT 17 Alkaline Phosphatase 103 Ammonia 74.0 H Total Protein 6.7 Albumin 3.8 L Albumin/Globulin Ratio 1.3
--- NOTE | 2018-07-26 13:33 | Progress Note ---
Assessment and Plan Assessment and plan: Patient is a 62 yo woman with a history of alcohol abuse with dementia, Brain aneuyrsm x 2, CVA, hypertension, GERD, Arthritis, Seizures disoder and bipolar disorder with a history of AMS. Hepatic encephalopathy: serial ammonia level, GI consult==>add lactulose to home Xifamin Thrombocytopenia: ETOH induced, monitor cbc Seizure Disorder: continue antiepilepticus Hypernatremia: start d5w, repeat levels in am hypokalemia: replace and recheck in am Cirrhosis: GI is following Anticipate discharge tomorrow. d/c Ms. Weir History Interval history: Patient was seen and examined. Follow-up on current diagnosis of AMS. Overnight uneventful. Patient denies any chest pain, shortness breath, nausea/vomiting or severe headaches. Imaging, nursing note, chart, labs and old chart reviewed. Discussed with patient. Hospitalist Physical - Physical exam Narrative exam: Gen: chronic disable NAD, Awake, Alert, Orientated x 0 HEENT: NCAT, EOMI, PERRL, OP Clear Neck: supple, no adenopathy, no thyromegaly, no JVD CVS/Heart: Regular bradycardia, normal S1S2, pulses present bilaterally Chest/Lungs: CTA B, Symmetrical chest expansion, good air entry bilaterally GI/Abdomen: soft, NTND, good bowel sounds, no guarding or rebound /Bladder: no suprapubic tenderness, no CVA or paraspinal tenderness Extermity/Skin: no c/c/e, no obvious rash MSK: FROM x 4 Neuro: CN 2-12 grossly intact, no new focal deficits Psych: calm - Constitutional Vitals: Temp Pulse Resp BP Pulse Ox 97.4 F L 56 L 16 98/55 96 07/26/18 11:56 07/26/18 11:56 07/26/18 11:56 07/26/18 11:56 07/26/18 11:56 General appearance: Present: no acute distress Results - Labs CBC & Chem 7: 07/26/18 05:23 07/26/18 05:23 Labs: Laboratory Last Values WBC 7.3 K/mm3 (4.5-11.0) 07/26/18 05:23 RBC 4.78 M/mm3 (3.65-5.03) 07/26/18 05:23 Hgb 13.9 gm/dl (10.1-14.3) 07/26/18 05:23 Hct 41.9 % (30.3-42.9) 07/26/18 05:23 MCV 88 fl (79-97) 07/26/18 05:23 MCH 29 pg (28-32) 07/26/18 05:23 MCHC 33 % (30-34) 07/26/18 05:23 RDW 17.5 % (13.2-15.2) H 07/26/18 05:23 Plt Count 165 K/mm3 (140-440) 07/26/18 05:23 [place] % (Auto) Machine Pecan Picker 07/25/18 05:06 Add Manual Diff Complete 07/25/18 05:06 Total Counted 100 07/25/18 05:06 Seg Neuts % (Manual) 77.0 % (40.0-70.0) H 07/25/18 05:06 Band Neutrophils % 0 % 07/25/18 05:06 Lymphocytes % (Manual) 16.0 % (13.4-35.0) 07/25/18 05:06 Reactive Lymphs % (Man) 0 % 07/25/18 05:06 Monocytes % (Manual) 7.0 % (0.0-7.3) 07/25/18 05:06 Eosinophils % (Manual) 0 % (0.0-4.3) 07/25/18 05:06 Basophils % (Manual) 0 % (0.0-1.8) 07/25/18 05:06 Metamyelocytes % 0 % 07/25/18 05:06 Myelocytes % 0 % 07/25/18 05:06 Promyelocytes % 0 % 07/25/18 05:06 Blast Cells % 0 % 07/25/18 05:06 Nucleated RBC % Not Reportable 07/25/18 05:06 Seg Neutrophils # Man 4.7 K/mm3 (1.8-7.7) 07/25/18 05:06 Band Neutrophils # 0.0 K/mm3 07/25/18 05:06 Lymphocytes # (Manual) 1.0 K/mm3 (1.2-5.4) L 07/25/18 05:06 Abs React Lymphs (Man) 0.0 K/mm3 07/25/18 05:06 Monocytes # (Manual) 0.4 K/mm3 (0.0-0.8) 07/25/18 05:06 Eosinophils # (Manual) 0.0 K/mm3 (0.0-0.4) 07/25/18 05:06 Basophils # (Manual) 0.0 K/mm3 (0.0-0.1) 07/25/18 05:06 Metamyelocytes # 0.0 K/mm3 07/25/18 05:06 Myelocytes # 0.0 K/mm3 07/25/18 05:06 Promyelocytes # 0.0 K/mm3 07/25/18 05:06 Blast Cells # 0.0 K/mm3 07/25/18 05:06 WBC Morphology Not Reportable 07/25/18 05:06 Hypersegmented Neuts Not Reportable 07/25/18 05:06 Hyposegmented Neuts Not Reportable 07/25/18 05:06 Hypogranular Neuts Not Reportable 07/25/18 05:06 Smudge Cells Not Reportable 07/25/18 05:06 Toxic Granulation Not Reportable 07/25/18 05:06 Toxic Vacuolation Not Reportable 07/25/18 05:06 Dohle Bodies Not Reportable 07/25/18 05:06 Pelger-Huet Anomaly Not Reportable 07/25/18 05:06 Lamine Rods Not Reportable 07/25/18 05:06 Platelet Estimate Consistent w auto 07/25/18 05:06 Clumped Platelets Not Reportable 07/25/18 05:06 Plt Clumps, EDTA Not Reportable 07/25/18 05:06 Large Platelets Not Reportable 07/25/18 05:06 Giant Platelets Not Reportable 07/25/18 05:06 Platelet Satelliting Not Reportable 07/25/18 05:06 Plt Morphology Comment Not Reportable 07/25/18 05:06 RBC Morphology Not Reportable 07/25/18 05:06 Dimorphic RBCs Not Reportable 07/25/18 05:06 Polychromasia Not Reportable 07/25/18 05:06 Hypochromasia Not Reportable 07/25/18 05:06 Poikilocytosis 1+ 07/25/18 05:06 Anisocytosis 1+ 07/25/18 05:06 Microcytosis Not Reportable 07/25/18 05:06 Macrocytosis Not Reportable 07/25/18 05:06 Spherocytes Not Reportable 07/25/18 05:06 Pappenheimer Bodies Not Reportable 07/25/18 05:06 Sickle Cells Not Reportable 07/25/18 05:06 Target Cells Not Reportable 07/25/18 05:06 Tear Drop Cells Not Reportable 07/25/18 05:06 Ovalocytes Not Reportable 07/25/18 05:06 Helmet Cells Not Reportable 07/25/18 05:06 Pool-Nathalie Bodies Not Reportable 07/25/18 05:06 [place] Rings Not Reportable 07/25/18 05:06 [place] Cells Not Reportable 07/25/18 05:06 Bite Cells Not Reportable 07/25/18 05:06 Crenated Cell Not Reportable 07/25/18 05:06 Elliptocytes 1+ 07/25/18 05:06 Acanthocytes (Spur) Not Reportable 07/25/18 05:06 Rouleaux Not Reportable 07/25/18 05:06 Hemoglobin C Crystals Not Reportable 07/25/18 05:06 Schistocytes Not Reportable 07/25/18 05:06 Malaria parasites Not Reportable 07/25/18 05:06 Brock Bodies Not Reportable 07/25/18 05:06 Hem Pathologist Commnt No 07/25/18 05:06 PT 16.6 Sec. (12.2-14.9) H 07/24/18 11:08 INR 1.26 (0.87-1.13) H 07/24/18 11:08 APTT 24.9 Sec. (24.2-36.6) 07/24/18 11:08 Sodium 150 mmol/L (137-145) H 07/26/18 05:23 Potassium 3.5 mmol/L (3.6-5.0) L 07/26/18 05:23 Chloride 114.5 mmol/L (98-107) H 07/26/18 05:23 Carbon Dioxide 21 mmol/L (22-30) L 07/26/18 05:23 Anion Gap 18 mmol/L 07/26/18 05:23 BUN 15 mg/dL (7-17) 07/26/18 05:23 Creatinine 0.8 mg/dL (0.7-1.2) 07/26/18 05:23 Estimated GFR > 60 ml/min 07/26/18 05:23 BUN/Creatinine Ratio 19 % 07/26/18 05:23 Glucose 107 mg/dL (65-100) H 07/26/18 05:23 POC Glucose 114 (70-105) H 07/24/18 12:08 Hemoglobin A1c 5.4 % (4-6) 07/24/18 17:12 Calcium 9.2 mg/dL (8.4-10.2) 07/26/18 05:23 Total Bilirubin 1.40 mg/dL (0.1-1.2) H 07/26/18 05:23 AST 28 units/L (5-40) 07/26/18 05:23 ALT 17 units/L (7-56) 07/26/18 05:23 Alkaline Phosphatase 103 units/L (35-129) 07/26/18 05:23 Ammonia 74.0 umol/L (25-60) H 07/25/18 16:52 Total Creatine Kinase 88 units/L (30-135) 07/24/18 11:08 CK-MB (CK-2) 3.6 ng/mL (0.0-4.0) 07/24/18 11:08 CK-MB (CK-2) Rel Index 4.0 (0-4) 07/24/18 11:08 Troponin T < 0.010 ng/mL (0.00-0.029) 07/24/18 11:08 Total Protein 6.7 g/dL (6.3-8.2) 07/26/18 05:23 Albumin 3.8 g/dL (3.9-5) L 07/26/18 05:23 Albumin/Globulin Ratio 1.3 % 07/26/18 05:23 TSH 9.060 mlU/mL (0.270-4.200) H 07/24/18 11:08 Free T4 1.08 ng/dL (0.76-1.46) 07/24/18 11:08 Urine Color Yellow (Yellow) 07/24/18 Unknown Urine Turbidity Clear (Clear) 07/24/18 Unknown Urine pH 5.0 (5.0-7.0) 07/24/18 Unknown Ur Specific [place] 1.024 (1.003-1.030) 07/24/18 Unknown Urine Protein <15 mg/dl mg/dL (Negative) 07/24/18 Unknown Urine Glucose (UA) Neg mg/dL (Negative) 07/24/18 Unknown Urine Ketones Neg mg/dL (Negative) 07/24/18 Unknown Urine Blood Neg (Negative) 07/24/18 Unknown Urine Nitrite Neg (Negative) 07/24/18 Unknown Urine Bilirubin Neg (Negative) 07/24/18 Unknown Urine Urobilinogen < 2.0 mg/dL (<2.0) 07/24/18 Unknown Ur Leukocyte Esterase Neg (Negative) 07/24/18 Unknown Urine WBC (Auto) 1.0 /HPF (0.0-6.0) 07/24/18 Unknown Urine RBC (Auto) 1.0 /HPF (0.0-6.0) 07/24/18 Unknown Hyaline Casts 1 /LPF 07/24/18 Unknown Urine Mucus Few /HPF 07/24/18 Unknown Salicylates < 0.3 mg/dL (2.8-20.0) L 07/24/18 11:08 Urine Opiates Screen Presumptive negative 07/24/18 Unknown Urine Methadone Screen Presumptive negative 07/24/18 Unknown Acetaminophen < 5.0 ug/mL (10.0-30.0) L 07/24/18 11:08 Ur Barbiturates Screen Presumptive negative 07/24/18 Unknown Ur Phencyclidine Scrn Presumptive negative 07/24/18 Unknown Ur Amphetamines Screen Presumptive negative 07/24/18 Unknown U Benzodiazepines Scrn Presumptive negative 07/24/18 Unknown Urine Cocaine Screen Presumptive negative 07/24/18 Unknown U Marijuana (THC) Screen Presumptive negative 07/24/18 Unknown Drugs of Abuse Note Disclamer 07/24/18 Unknown Plasma/Serum Alcohol < 0.01 % (0-0.07) 07/24/18 11:08 Active Medications - Current Medications Current Medications: Generic Name Dose Route Start Last Admin Trade Name Freq PRN Reason Stop Dose Admin Acetaminophen 650 mg 07/24/18 16:40 Tylenol PO Q4H PRN Pain MILD(1-3)/Fever >100.5/PÉREZ Aspirin 81 mg 07/24/18 17:00 07/26/18 10:04 Baby Aspirin PO 81 mg DAILY HUONG Administration Clopidogrel Bisulfate 75 mg 07/24/18 17:15 07/26/18 10:03 Plavix PO 75 mg DAILY HUONG Administration Folic Acid 1 mg 07/24/18 17:00 07/26/18 10:04 Folvite PO 1 mg QDAY HUONG Administration Furosemide 20 mg 07/24/18 17:00 07/26/18 10:23 Lasix PO Not Given QDAY HUONG Hydromorphone HCl 0.25 mg 07/24/18 16:40 07/26/18 05:00 Dilaudid IV 0.25 mg Q3H PRN Administration Pain, Moderate (4-6) Dextrose 1,000 mls @ 75 mls/hr 07/26/18 14:00 D5w IV DIRECT HUONG Lactulose 26.6667 gm 07/26/18 00:00 07/26/18 12:39 Cephulac PO 26.6667 gm Q6HR HUONG Administration Lamotrigine 25 mg 07/24/18 22:00 07/26/18 10:04 Lamictal PO 25 mg BID HUONG Administration Levetiracetam 1,500 mg 07/24/18 22:00 07/26/18 10:03 Keppra PO 1,500 mg BID HUONG Administration Levothyroxine Sodium 100 mcg 07/25/18 06:00 07/26/18 05:01 Synthroid PO 100 mcg DAILY@0600 HUONG Administration Lorazepam 2 mg 07/25/18 00:01 Ativan IV Q1H PRN CIWA-Ar 8-15 Lorazepam 4 mg 07/25/18 00:01 Ativan IV Q1H PRN CIWA-Ar 16-25 Multivitamins 1 each 07/25/18 10:00 07/26/18 10:04 Theragran Tab PO 1 each DAILY HUONG Administration Ondansetron HCl 4 mg 07/24/18 16:40 Zofran IV Q8H PRN Nausea And Vomiting Potassium Chloride 20 meq 07/26/18 13:27 K-Dur PO 07/26/18 13:28 ONCE ONE Spironolactone 100 mg 07/24/18 17:00 07/26/18 10:18 Aldactone PO 100 mg QDAY HUONG Administration Thiamine HCl 100 mg 07/24/18 17:00 07/26/18 10:03 Vitamin B-1 PO 100 mg QDAY HUONG Administration Trazodone HCl 50 mg 07/24/18 16:45 07/25/18 23:26 Desyrel PO 50 mg QHS PRN Administration Sleep
[2018-07-26] MEDS ORDERED: K-DUR PO NR (14:00)
[2018-07-26] MEDS: D5W 1,000 ML IV SCH (14:44)
[2018-07-27] MEDS: CEPHULAC PO SCH ×4 (00:11→17:48)
[2018-07-27] MEDS: SYNTHROID PO SCH (05:49)
[2018-07-27] MEDS: D5W 1,000 ML IV SCH (05:54)
--- NOTE | 2018-07-27 07:09 | Progress Note ---
Assessment and Plan Assessment and plan: Patient is a 62 yo woman with a history of alcohol abuse with dementia, Brain aneuyrsm x 2, CVA, hypertension, GERD, Arthritis, Seizures disoder and bipolar disorder with a history of AMS. Hepatic encephalopathy: serial ammonia level, GI consult==>add lactulose to home Xifamin Thrombocytopenia: ETOH induced, monitor cbc Seizure Disorder: continue antiepilepticus Hypernatremia: start d5w, repeat levels in am hypokalemia: replace and recheck in am Cirrhosis: GI is following Not back to baseline, not walking unassisted which is new, ?snf placement d/c Ms. Walker History Interval history: Patient was seen and examined. Follow-up on current diagnosis of AMS. Overnight uneventful. Patient denies any chest pain, shortness breath, nausea/vomiting or severe headaches. Imaging, nursing note, chart, labs and old chart reviewed. Discussed with patient. Hospitalist Physical - Physical exam Narrative exam: Gen: chronic disable NAD, Awake, Alert, Orientated x 0 HEENT: NCAT, EOMI, PERRL, OP Clear Neck: supple, no adenopathy, no thyromegaly, no JVD CVS/Heart: Regular bradycardia, normal S1S2, pulses present bilaterally Chest/Lungs: CTA B, Symmetrical chest expansion, good air entry bilaterally GI/Abdomen: soft, NTND, good bowel sounds, no guarding or rebound /Bladder: no suprapubic tenderness, no CVA or paraspinal tenderness Extermity/Skin: no c/c/e, no obvious rash MSK: FROM x 4 Neuro: CN 2-12 grossly intact, no new focal deficits Psych: calm - Constitutional Vitals: Temp Pulse Resp BP Pulse Ox 97.2 F L 56 L 18 104/54 96 07/26/18 17:40 07/26/18 17:40 07/26/18 17:40 07/26/18 17:40 07/26/18 17:40 General appearance: Present: no acute distress Results - Labs CBC & Chem 7: 07/27/18 07:57 07/27/18 07:53 Labs: Laboratory Last Values WBC 7.3 K/mm3 (4.5-11.0) 07/26/18 05:23 RBC 4.78 M/mm3 (3.65-5.03) 07/26/18 05:23 Hgb 13.9 gm/dl (10.1-14.3) 07/26/18 05:23 Hct 41.9 % (30.3-42.9) 07/26/18 05:23 MCV 88 fl (79-97) 07/26/18 05:23 MCH 29 pg (28-32) 07/26/18 05:23 MCHC 33 % (30-34) 07/26/18 05:23 RDW 17.5 % (13.2-15.2) H 07/26/18 05:23 Plt Count 165 K/mm3 (140-440) 07/26/18 05:23 [place] % (Auto) Shearing Supervisor 07/25/18 05:06 Add Manual Diff Complete 07/25/18 05:06 Total Counted 100 07/25/18 05:06 Seg Neuts % (Manual) 77.0 % (40.0-70.0) H 07/25/18 05:06 Band Neutrophils % 0 % 07/25/18 05:06 Lymphocytes % (Manual) 16.0 % (13.4-35.0) 07/25/18 05:06 Reactive Lymphs % (Man) 0 % 07/25/18 05:06 Monocytes % (Manual) 7.0 % (0.0-7.3) 07/25/18 05:06 Eosinophils % (Manual) 0 % (0.0-4.3) 07/25/18 05:06 Basophils % (Manual) 0 % (0.0-1.8) 07/25/18 05:06 Metamyelocytes % 0 % 07/25/18 05:06 Myelocytes % 0 % 07/25/18 05:06 Promyelocytes % 0 % 07/25/18 05:06 Blast Cells % 0 % 07/25/18 05:06 Nucleated RBC % Not Reportable 07/25/18 05:06 Seg Neutrophils # Man 4.7 K/mm3 (1.8-7.7) 07/25/18 05:06 Band Neutrophils # 0.0 K/mm3 07/25/18 05:06 Lymphocytes # (Manual) 1.0 K/mm3 (1.2-5.4) L 07/25/18 05:06 Abs React Lymphs (Man) 0.0 K/mm3 07/25/18 05:06 Monocytes # (Manual) 0.4 K/mm3 (0.0-0.8) 07/25/18 05:06 Eosinophils # (Manual) 0.0 K/mm3 (0.0-0.4) 07/25/18 05:06 Basophils # (Manual) 0.0 K/mm3 (0.0-0.1) 07/25/18 05:06 Metamyelocytes # 0.0 K/mm3 07/25/18 05:06 Myelocytes # 0.0 K/mm3 07/25/18 05:06 Promyelocytes # 0.0 K/mm3 07/25/18 05:06 Blast Cells # 0.0 K/mm3 07/25/18 05:06 WBC Morphology Not Reportable 07/25/18 05:06 Hypersegmented Neuts Not Reportable 07/25/18 05:06 Hyposegmented Neuts Not Reportable 07/25/18 05:06 Hypogranular Neuts Not Reportable 07/25/18 05:06 Smudge Cells Not Reportable 07/25/18 05:06 Toxic Granulation Not Reportable 07/25/18 05:06 Toxic Vacuolation Not Reportable 07/25/18 05:06 Dohle Bodies Not Reportable 07/25/18 05:06 Pelger-Huet Anomaly Not Reportable 07/25/18 05:06 Lamine Rods Not Reportable 07/25/18 05:06 Platelet Estimate Consistent w auto 07/25/18 05:06 Clumped Platelets Not Reportable 07/25/18 05:06 Plt Clumps, EDTA Not Reportable 07/25/18 05:06 Large Platelets Not Reportable 07/25/18 05:06 Giant Platelets Not Reportable 07/25/18 05:06 Platelet Satelliting Not Reportable 07/25/18 05:06 Plt Morphology Comment Not Reportable 07/25/18 05:06 RBC Morphology Not Reportable 07/25/18 05:06 Dimorphic RBCs Not Reportable 07/25/18 05:06 Polychromasia Not Reportable 07/25/18 05:06 Hypochromasia Not Reportable 07/25/18 05:06 Poikilocytosis 1+ 07/25/18 05:06 Anisocytosis 1+ 07/25/18 05:06 Microcytosis Not Reportable 07/25/18 05:06 Macrocytosis Not Reportable 07/25/18 05:06 Spherocytes Not Reportable 07/25/18 05:06 Pappenheimer Bodies Not Reportable 07/25/18 05:06 Sickle Cells Not Reportable 07/25/18 05:06 Target Cells Not Reportable 07/25/18 05:06 Tear Drop Cells Not Reportable 07/25/18 05:06 Ovalocytes Not Reportable 07/25/18 05:06 Helmet Cells Not Reportable 07/25/18 05:06 [place] Bodies Not Reportable 07/25/18 05:06 [place] Rings Not Reportable 07/25/18 05:06 Terry Cells Not Reportable 07/25/18 05:06 Bite Cells Not Reportable 07/25/18 05:06 Crenated Cell Not Reportable 07/25/18 05:06 Elliptocytes 1+ 07/25/18 05:06 Acanthocytes (Spur) Not Reportable 07/25/18 05:06 Rouleaux Not Reportable 07/25/18 05:06 Hemoglobin C Crystals Not Reportable 07/25/18 05:06 Schistocytes Not Reportable 07/25/18 05:06 Malaria parasites Not Reportable 07/25/18 05:06 Brock Bodies Not Reportable 07/25/18 05:06 Hem Pathologist Commnt No 07/25/18 05:06 PT 16.6 Sec. (12.2-14.9) H 07/24/18 11:08 INR 1.26 (0.87-1.13) H 07/24/18 11:08 APTT 24.9 Sec. (24.2-36.6) 07/24/18 11:08 Sodium 150 mmol/L (137-145) H 07/26/18 05:23 Potassium 3.5 mmol/L (3.6-5.0) L 07/26/18 05:23 Chloride 114.5 mmol/L (98-107) H 07/26/18 05:23 Carbon Dioxide 21 mmol/L (22-30) L 07/26/18 05:23 Anion Gap 18 mmol/L 07/26/18 05:23 BUN 15 mg/dL (7-17) 07/26/18 05:23 Creatinine 0.8 mg/dL (0.7-1.2) 07/26/18 05:23 Estimated GFR > 60 ml/min 07/26/18 05:23 BUN/Creatinine Ratio 19 % 07/26/18 05:23 Glucose 107 mg/dL (65-100) H 07/26/18 05:23 POC Glucose 114 (70-105) H 07/24/18 12:08 Hemoglobin A1c 5.4 % (4-6) 07/24/18 17:12 Calcium 9.2 mg/dL (8.4-10.2) 07/26/18 05:23 Total Bilirubin 1.40 mg/dL (0.1-1.2) H 07/26/18 05:23 AST 28 units/L (5-40) 07/26/18 05:23 ALT 17 units/L (7-56) 07/26/18 05:23 Alkaline Phosphatase 103 units/L (35-129) 07/26/18 05:23 Ammonia 66.0 umol/L (25-60) H 07/26/18 17:09 Total Creatine Kinase 88 units/L (30-135) 07/24/18 11:08 CK-MB (CK-2) 3.6 ng/mL (0.0-4.0) 07/24/18 11:08 CK-MB (CK-2) Rel Index 4.0 (0-4) 07/24/18 11:08 Troponin T < 0.010 ng/mL (0.00-0.029) 07/24/18 11:08 Total Protein 6.7 g/dL (6.3-8.2) 07/26/18 05:23 Albumin 3.8 g/dL (3.9-5) L 07/26/18 05:23 Albumin/Globulin Ratio 1.3 % 07/26/18 05:23 TSH 9.060 mlU/mL (0.270-4.200) H 07/24/18 11:08 Free T4 1.08 ng/dL (0.76-1.46) 07/24/18 11:08 Urine Color Yellow (Yellow) 07/24/18 Unknown Urine Turbidity Clear (Clear) 07/24/18 Unknown Urine pH 5.0 (5.0-7.0) 07/24/18 Unknown Ur Specific [place] 1.024 (1.003-1.030) 07/24/18 Unknown Urine Protein <15 mg/dl mg/dL (Negative) 07/24/18 Unknown Urine Glucose (UA) Neg mg/dL (Negative) 07/24/18 Unknown Urine Ketones Neg mg/dL (Negative) 07/24/18 Unknown Urine Blood Neg (Negative) 07/24/18 Unknown Urine Nitrite Neg (Negative) 07/24/18 Unknown Urine Bilirubin Neg (Negative) 07/24/18 Unknown Urine Urobilinogen < 2.0 mg/dL (<2.0) 07/24/18 Unknown Ur Leukocyte Esterase Neg (Negative) 07/24/18 Unknown Urine WBC (Auto) 1.0 /HPF (0.0-6.0) 07/24/18 Unknown Urine RBC (Auto) 1.0 /HPF (0.0-6.0) 07/24/18 Unknown Hyaline Casts 1 /LPF 07/24/18 Unknown Urine Mucus Few /HPF 07/24/18 Unknown Salicylates < 0.3 mg/dL (2.8-20.0) L 07/24/18 11:08 Urine Opiates Screen Presumptive negative 07/24/18 Unknown Urine Methadone Screen Presumptive negative 07/24/18 Unknown Acetaminophen < 5.0 ug/mL (10.0-30.0) L 07/24/18 11:08 Ur Barbiturates Screen Presumptive negative 07/24/18 Unknown Ur Phencyclidine Scrn Presumptive negative 07/24/18 Unknown Ur Amphetamines Screen Presumptive negative 07/24/18 Unknown U Benzodiazepines Scrn Presumptive negative 07/24/18 Unknown Urine Cocaine Screen Presumptive negative 07/24/18 Unknown U Marijuana (THC) Screen Presumptive negative 07/24/18 Unknown Drugs of Abuse Note Disclamer 07/24/18 Unknown Plasma/Serum Alcohol < 0.01 % (0-0.07) 07/24/18 11:08 Active Medications - Current Medications Current Medications: Generic Name Dose Route Start Last Admin Trade Name Freq PRN Reason Stop Dose Admin Acetaminophen 650 mg 07/24/18 16:40 Tylenol PO Q4H PRN Pain MILD(1-3)/Fever >100.5/PÉREZ Aspirin 81 mg 07/24/18 17:00 07/26/18 10:04 Baby Aspirin PO 81 mg DAILY HUONG Administration Clopidogrel Bisulfate 75 mg 07/24/18 17:15 07/26/18 10:03 Plavix PO 75 mg DAILY HUONG Administration Folic Acid 1 mg 07/24/18 17:00 07/26/18 10:04 Folvite PO 1 mg QDAY HUONG Administration Furosemide 20 mg 07/24/18 17:00 07/26/18 10:23 Lasix PO Not Given QDAY HUONG Hydromorphone HCl 0.25 mg 07/24/18 16:40 07/26/18 05:00 Dilaudid IV 0.25 mg Q3H PRN Administration Pain, Moderate (4-6) Dextrose 1,000 mls @ 75 mls/hr 07/26/18 14:00 07/27/18 05:54 D5w IV 75 mls/hr DIRECT HUONG Administration Lactulose 26.6667 gm 07/26/18 00:00 07/27/18 05:49 Cephulac PO 26.6667 gm Q6HR HUONG Administration Lamotrigine 25 mg 07/24/18 22:00 07/26/18 22:08 Lamictal PO 25 mg BID HUONG Administration Levetiracetam 1,500 mg 07/24/18 22:00 07/26/18 22:08 Keppra PO 1,500 mg BID HUONG Administration Levothyroxine Sodium 100 mcg 07/25/18 06:00 07/27/18 05:49 Synthroid PO 100 mcg DAILY@0600 HUONG Administration Lorazepam 2 mg 07/25/18 00:01 Ativan IV Q1H PRN CIWA-Ar 8-15 Lorazepam 4 mg 07/25/18 00:01 Ativan IV Q1H PRN CIWA-Ar 16-25 Multivitamins 1 each 07/25/18 10:00 07/26/18 10:04 Theragran Tab PO 1 each DAILY HUONG Administration Ondansetron HCl 4 mg 07/24/18 16:40 Zofran IV Q8H PRN Nausea And Vomiting Spironolactone 100 mg 07/24/18 17:00 07/26/18 10:18 Aldactone PO 100 mg QDAY HUONG Administration Thiamine HCl 100 mg 07/24/18 17:00 07/26/18 10:03 Vitamin B-1 PO 100 mg QDAY HUONG Administration Trazodone HCl 50 mg 07/24/18 16:45 07/25/18 23:26 Desyrel PO 50 mg QHS PRN Administration Sleep
[2018-07-27 08:22] LABS: Hematocrit 36.4 % (30.3-42.9); Hemoglobin 12.4 gm/dl (10.1-14.3); Mean Corpuscular HGB Conc 34 % (30-34); Mean Corpuscular Volume 87 fl (79-97); Platelet Count 131 K/mm3 (140-440); Red Blood Count 4.17 M/mm3 (3.65-5.03)
[2018-07-27 08:42] LABS: BUN/Creatinine Ratio 16; Blood Urea Nitrogen 8 mg/dL (7-17); Calcium 8.8 mg/dL (8.4-10.2); Hemolysis Index 8
[2018-07-27] MEDS: PLAVIX PO SCH (10:58)
[2018-07-27] MEDS: VITAMIN B-1 PO SCH (10:58)
[2018-07-27] MEDS: BABY ASPIRIN PO SCH (10:58)
[2018-07-27] MEDS: FOLVITE PO SCH (10:58)
[2018-07-27] MEDS: THERAGRAN Tab PO SCH (10:58)
[2018-07-27] MEDS: LASIX PO SCH (10:59)
[2018-07-27] MEDS: KEPPRA PO SCH ×2 (10:59→22:14)
[2018-07-27] MEDS: ALDACTONE PO SCH (10:59)
[2018-07-27] MEDS: LaMICtal PO SCH ×2 (10:59→22:16)
[2018-07-27] MEDS: XIFAXAN PO SCH ×2 (12:00→22:14)
[2018-07-28] MEDS: D5W 1,000 ML IV SCH ×2 (00:31→16:23)
[2018-07-28] MEDS: CEPHULAC PO SCH ×5 (00:32→23:29)
[2018-07-28] MEDS: DESYREL PO PRN (00:34)
[2018-07-28] MEDS: SYNTHROID PO SCH (06:06)
[2018-07-28] MEDS: LASIX PO SCH (10:55)
[2018-07-28] MEDS: PLAVIX PO SCH (10:55)
[2018-07-28] MEDS: ALDACTONE PO SCH (10:55)
[2018-07-28] MEDS: VITAMIN B-1 PO SCH (10:55)
[2018-07-28] MEDS: THERAGRAN Tab PO SCH (10:55)
[2018-07-28] MEDS: XIFAXAN PO SCH ×2 (10:55→22:51)
[2018-07-28] MEDS: LaMICtal PO SCH ×2 (10:56→22:51)
[2018-07-28] MEDS: BABY ASPIRIN PO SCH (10:56)
[2018-07-28] MEDS: KEPPRA PO SCH ×2 (10:58→22:51)
[2018-07-28] MEDS: FOLVITE PO SCH (10:58)
--- NOTE | 2018-07-28 15:20 | Progress Note ---
Assessment and Plan Patient is a 62 yo woman with a history of alcohol abuse with dementia, Brain aneuyrsm x 2, CVA, hypertension, GERD, Arthritis, Seizures disoder and bipolar disorder with a history of AMS. - Hepatic encephalopathy: serial ammonia level back to normal, GI consult==>add lactulose to home Xifamin - Thrombocytopenia: ETOH induced, monitor cbc - Seizure Disorder: continue antiepilepticus - Hypernatremia: resolved Resolved with d5w, repeat levels in am -Hypokalemia: corrected replace and recheck in am, as well as Mg level - Cirrhosis: GI is following Debility due to Senility PT eval and tx. Not walking unassisted which is new, ?snf placement - DVT ppx with lovenox Subjective Date of service: 07/28/18 Principal diagnosis: hepatic encephalopathy, pancytopenia Interval history: Still confused. On restraints. Denies any fever. Objective - Exam Narrative Exam: Constitutional: Sitting up in bed, confused. Well-nourished well-developed. In no distress Head: Normocephalic atraumatic Eyes: Pupils are equal round and reactive to light Nose: No enlarged turbinates, no septal deviation. Mouth: Moist mucous membranes. Neck: Supple no thyromegaly. No bruit. No JVD Heart: Regular rate and rhythm, S1-S2 normal. No rubs murmurs or gallop Lungs: Clear to auscultation bilaterally. no rales or rhonchi Abdomen: Soft, nontender. Bowel sound are present. Extremities: No edema, no cyanosis, no clubbing. Neuro: Confused. Moves all limbs. Skin: No rashes or hyperpigmented spots Musculoskeletal system: No joint pain or swelling Hematological: No petechia or subcutanous hemorrhages. Immunological: No multiple septic spots on the skin Lymphatic: No generalized lymphadenopathy Psychiatry: Euthymic. Calm. Confused - Constitutional Vitals: Vital Signs - 12hr 07/28/18 11:56 Temperature 97.3 F L Pulse Rate 71 Respiratory 18 Rate Blood Pressure 108/64 O2 Sat by Pulse 91 Oximetry - Labs CBC & Chem 7: 07/27/18 07:57 07/27/18 07:53
[2018-07-29] MEDS: CEPHULAC PO SCH ×2 (05:23→11:49)
[2018-07-29] MEDS: SYNTHROID PO SCH (05:24)
[2018-07-29] MEDS: D5W 1,000 ML IV SCH (05:24)
[2018-07-29 05:40] LABS: Hematocrit 37.5 % (30.3-42.9); Hemoglobin 12.5 gm/dl (10.1-14.3); Mean Corpuscular HGB Conc 33 % (30-34); Mean Corpuscular Volume 88 fl (79-97); Platelet Count 135 K/mm3 (140-440); Red Blood Count 4.28 M/mm3 (3.65-5.03); Red Cell Distribution Width 17.6 % (13.2-15.2)
[2018-07-29 06:01] LABS: Alanine Aminotransferase 26 units/L (7-56); Albumin 3.3 g/dL (3.9-5); BUN/Creatinine Ratio 6; Blood Urea Nitrogen 3 mg/dL (7-17); Calcium 8.3 mg/dL (8.4-10.2); Hemolysis Index 8
[2018-07-29 07:16] LABS: Anisocytosis 1+; Band Neutrophils # (Manual) 0.1 K/mm3; Basophils % (Manual) 0 % (0.0-1.8); Eosinophils % (Manual) 0 % (0.0-4.3); Total Cells Counted 100
[2018-07-29 07:17] LABS: Platelet Estimate Consistent w Auto
[2018-07-29] MEDS: KCL 10MEQ/100ML 10 MEQ/100 ML BAG IV SCH ×4 (09:55→18:10)
[2018-07-29] MEDS: PLAVIX PO SCH (10:21)
[2018-07-29] MEDS: XIFAXAN PO SCH ×2 (11:00→23:02)
[2018-07-29] MEDS: BABY ASPIRIN PO SCH (11:00)
[2018-07-29] MEDS: FOLVITE PO SCH (11:00)
[2018-07-29] MEDS: LASIX PO SCH (11:00)
[2018-07-29] MEDS: THERAGRAN Tab PO SCH (11:00)
[2018-07-29] MEDS: KEPPRA PO SCH ×2 (11:00→23:02)
[2018-07-29] MEDS: VITAMIN B-1 PO SCH (11:00)
[2018-07-29] MEDS: LaMICtal PO SCH ×2 (11:01→23:02)
[2018-07-29] MEDS ORDERED: CEPHULAC PO PRN (12:07)
[2018-07-29] MEDS: D5NS 1,000 ML IV SCH (17:05)
[2018-07-29] MEDS: ALDACTONE PO SCH (17:55)
--- NOTE | 2018-07-29 21:41 | Progress Note ---
Assessment and Plan Patient is a 62 yo woman with a history of alcohol abuse with dementia, Brain aneuyrsm x 2, CVA, hypertension, GERD, Arthritis, Seizures disorder and bipolar disorder with a history of AMS. - Hepatic encephalopathy: serial ammonia level back to normal, GI consult On lactulose added to home Xifamin - Thrombocytopenia: ETOH induced improving, monitor cbc - Seizure Disorder: continue antiepileptic meds - Hypernatremia: resolved Resolved with d5w, repeat levels in am -Hypokalemia: corrected Replace and recheck in am, as well as Mg level - Cirrhosis: GI is following - Debility due to Senility PT eval and tx. Not walking unassisted which is new, Unable to follow instruction Disposition: D/w Case MX. [facility] staff will be ready to take her back tomorrow. They state ability to take care of pt's nursing need declined SNF. - DVT ppx with Lovenox Subjective Date of service: 07/29/18 Principal diagnosis: hepatic encephalopathy, pancytopenia Interval history: Still confused. No any fever. Objective - Exam Narrative Exam: Constitutional: confused. Well-nourished well-developed. In no distress Head: Normocephalic atraumatic Eyes: Pupils are equal round and reactive to light Nose: No enlarged turbinates, no septal deviation. Mouth: Moist mucous membranes. Neck: Supple no thyromegaly. No bruit. No JVD Heart: Regular rate and rhythm, S1-S2 normal. No rubs murmurs or gallop Lungs: Clear to auscultation bilaterally. no rales or rhonchi Abdomen: Soft, nontender. Bowel sound are present. Extremities: No edema, no cyanosis, no clubbing. Neuro: Confused. Moves all limbs. Skin: No rashes or hyperpigmented spots Musculoskeletal system: No joint pain or swelling Hematological: No petechia or subcutanous hemorrhages. Immunological: No multiple septic spots on the skin Lymphatic: No generalized lymphadenopathy Psychiatry: Confused - Constitutional Vitals: Vital Signs - 12hr 07/29/18 07/29/18 07/29/18 11:35 12:18 15:39 Temperature 99.5 F Pulse Rate 89 Respiratory 18 16 Rate Blood Pressure 108/57 Blood Pressure 114/69 [Right] O2 Sat by Pulse 86 93 Oximetry 07/29/18 16:31 Temperature 97.1 F L Pulse Rate 81 Respiratory 18 Rate Blood Pressure 104/57 Blood Pressure [Right] O2 Sat by Pulse 92 Oximetry - Labs CBC & Chem 7: 07/29/18 05:20 07/29/18 05:20 Labs: Abnormal lab results 07/29/18 07/29/18 Range/Units 05:20 05:20 RDW 17.6 H (13.2-15.2) % Plt Count 135 L (140-440) K/mm3 Monocytes % (Manual) 15.0 H (0.0-7.3) % Sodium 134 L (137-145) mmol/L Potassium 3.1 L (3.6-5.0) mmol/L Carbon Dioxide 21 L (22-30) mmol/L BUN 3 L (7-17) mg/dL Creatinine 0.5 L (0.7-1.2) mg/dL Glucose 115 H (65-100) mg/dL Calcium 8.3 L (8.4-10.2) mg/dL Total Bilirubin 1.50 H (0.1-1.2) mg/dL AST 52 H (5-40) units/L Total Protein 5.7 L (6.3-8.2) g/dL Albumin 3.3 L (3.9-5) g/dL
[2018-07-29] MEDS ORDERED: K-DUR PO ONE (22:31)
[2018-07-30 05:56] LABS: Hematocrit 34.1 % (30.3-42.9); Hemoglobin 11.4 gm/dl (10.1-14.3); Mean Corpuscular HGB Conc 34 % (30-34); Mean Corpuscular Volume 88 fl (79-97); Platelet Count 116 K/mm3 (140-440); Red Blood Count 3.89 M/mm3 (3.65-5.03); Red Cell Distribution Width 17.8 % (13.2-15.2)
[2018-07-30 06:31] LABS: Alanine Aminotransferase 26 units/L (7-56); Albumin 3.1 g/dL (3.9-5); BUN/Creatinine Ratio 5; Blood Urea Nitrogen 3 mg/dL (7-17); Hemolysis Index 3
[2018-07-30] MEDS: SYNTHROID PO SCH (06:41)
[2018-07-30] MEDS: D5NS 1,000 ML IV SCH (07:06)
[2018-07-30] MEDS: TYLENOL PO PRN (09:46)
[2018-07-30] MEDS ORDERED: ALDACTONE PO SCH (10:00)
[2018-07-30] MEDS: BABY ASPIRIN PO SCH (10:10)
[2018-07-30] MEDS: LASIX PO SCH (10:10)
[2018-07-30] MEDS: FOLVITE PO SCH (10:10)
[2018-07-30] MEDS: VITAMIN B-1 PO SCH (10:10)
[2018-07-30] MEDS: XIFAXAN PO SCH ×2 (10:11→22:30)
[2018-07-30] MEDS: THERAGRAN Tab PO SCH (10:11)
[2018-07-30] MEDS: ALDACTONE PO SCH (10:11)
[2018-07-30] MEDS: PLAVIX PO SCH (10:12)
[2018-07-30] MEDS: KEPPRA PO SCH ×2 (10:17→22:30)
[2018-07-30] MEDS: LaMICtal PO SCH ×2 (10:19→22:31)
[2018-07-30] MEDS: CEPHULAC PO SCH (10:19)
[2018-07-30 10:37] LABS: Total Cells Counted 100
[2018-07-30 10:38] LABS: Ovalocytes Few; Platelet Estimate Consistent w Auto
--- NOTE | 2018-07-30 11:42 | Discharge Summary ---
Providers - Providers Date of Admission: 07/24/18 12:52 Attending physician: CATHERINE MANN MD 07/24/18 16:40 Consult to Physician [CONS] Routine Comment: Consulting Provider: CINDI THOMAS Physician Instructions: Reason For Exam: hepatic encephalopathy 07/26/18 13:21 Occupational Therapy Evaluate and Treat [CONS] Routine Comment: Reason For Exam: ADLs evaluation Physical Therapy Evaluation and Treat [CONS] Routine Comment: Reason For Exam: gait evaluation/ambulatory dysfunction Primary care physician: EDUIN TELLO Hospitalization Condition: Stable Hospital course: Patient is a 62 yo woman with a history of alcohol abuse with dementia, Brain aneuyrsm x 2, CVA, hypertension, GERD, Arthritis, Seizures disorder and bipolar disorder with a history of AMS. Hx oF Dementia - Hepatic encephalopathy: serial ammonia level back to normal, GI consult On lactulose added to home Xifamin - Thrombocytopenia: ETOH induced improving, monitor cbc nurse behavioral health care eval outpatient - Seizure Disorder: continue antiepileptic meds - Hypernatremia: resolved Resolved with d5w, repeat levels in am -Hypokalemia: corrected Replace and recheck in am, as well as Mg level - Cirrhosis: GI is following - Debility due to Senility PT eval and tx. Not walking unassisted which is new, Unable to follow instruction Disposition: D/w Case MX. Personal intermediate staff will be ready to take her back tomorrow. They state ability to take care of pt's nursing need declined SNF. - DVT ppx with Lovenox Disposition: DC-01 TO HOME OR SELFCARE Core Measure Documentation - Palliative Care Palliative Care/ Comfort Measures: Not Applicable Exam - Constitutional Vitals: Temp Pulse Resp BP Pulse Ox 98.3 F 81 18 95/43 94 07/30/18 04:16 07/30/18 04:16 07/30/18 04:16 07/30/18 11:11 07/30/18 04:16 Plan Activity: advance as tolerated, fall precautions Diet: low salt Special Instructions: record daily weights, record daily BP diary Follow up with: EDUIN TELLO MD [Primary Care Provider] - 7 Days AUDELIA VEGA MD [Staff Physician] - 7 Days ANGLE SALGUERO MD [Staff Physician] - 7 Days Prescriptions: Spironolactone [Aldactone] 50 mg PO QDAY #30 tablet Rifaximin [Xifaxan] 550 mg PO BID #60 tablet
--- NOTE | 2018-07-30 15:58 | Progress Note ---
Assessment and Plan Assessment and plan: Patient is a 62 yo woman with a history of alcohol abuse with dementia, Brain aneuyrsm x 2, CVA, hypertension, GERD, Arthritis, Seizures disorder and bipolar disorder with a history of AMS. Hypoxic Respiratory failure -Evaluate for pulmonary embolism -Start dvt prophy - Hepatic encephalopathy: serial ammonia level back to normal, GI consult INPUT NOTED On lactulose added to home Xifamin - Thrombocytopenia: ETOH induced improving, monitor cbc - Seizure Disorder: continue antiepileptic meds - Hypernatremia: resolved Resolved with d5w, repeat levels in am -Hypokalemia: corrected Replace and recheck in am, as well as Mg level - Cirrhosis: GI is following -hypoxia- hold discharge. check cta chest start dvt prophy with heparin - Debility due to Senility PT eval and tx. Not walking unassisted which is new, Unable to follow instruction Dementia: Per case management and also caregiver, patient has underlying jaundice and appears back to her baseline. Although am still concerned with her ambulation. Disposition: D/w Case MX. Personal alf staff will be ready to take her back tomorrow. They state ability to take care of pt's nursing need declined SNF. - DVT ppx with HEPARIN History Interval history: Patient seen and examined, remains confused. although interactive just takes a while to respond and i am told it is her baseline. Plan was for discharge today but patient noted to be hypoxic Hospitalist Physical - Physical exam Narrative exam: Narrative exam: Gen: chronic disable NAD, Awake, Alert, Orientated x 1 to person only HEENT: NCAT, EOMI, PERRL, OP Clear Neck: supple, no adenopathy, no thyromegaly, no JVD CVS/Heart: Regular bradycardia, normal S1S2, pulses present bilaterally Chest/Lungs: CTA B, Symmetrical chest expansion, good air entry bilaterally GI/Abdomen: soft, NTND, good bowel sounds, no guarding or rebound /Bladder: no suprapubic tenderness, no CVA or paraspinal tenderness Extermity/Skin: no c/c/e, no obvious rash MSK: FROM x 4 Neuro: CN 2-12 grossly intact, no new focal deficits Psych: calm - Constitutional Vitals: Temp Pulse Resp BP Pulse Ox 98.3 F 81 18 92/54 91 07/30/18 04:16 07/30/18 04:16 07/30/18 04:16 07/30/18 12:01 07/30/18 15:49 General appearance: Present: no acute distress Results - Labs CBC & Chem 7: 07/31/18 05:03 07/31/18 05:03 Labs: Laboratory Last Values WBC 4.6 K/mm3 (4.5-11.0) 07/30/18 05:43 RBC 3.89 M/mm3 (3.65-5.03) 07/30/18 05:43 Hgb 11.4 gm/dl (10.1-14.3) 07/30/18 05:43 Hct 34.1 % (30.3-42.9) 07/30/18 05:43 MCV 88 fl (79-97) 07/30/18 05:43 MCH 29 pg (28-32) 07/30/18 05:43 MCHC 34 % (30-34) 07/30/18 05:43 RDW 17.8 % (13.2-15.2) H 07/30/18 05:43 Plt Count 116 K/mm3 (140-440) L 07/30/18 05:43 Lincoln % (Auto) Clearance Diver 07/30/18 05:43 Add Manual Diff Complete 07/30/18 05:43 Total Counted 100 07/30/18 05:43 Seg Neuts % (Manual) 68.0 % (40.0-70.0) 07/30/18 05:43 Band Neutrophils % 0 % 07/30/18 05:43 Lymphocytes % (Manual) 18.0 % (13.4-35.0) 07/30/18 05:43 Reactive Lymphs % (Man) 0 % 07/30/18 05:43 Monocytes % (Manual) 12.0 % (0.0-7.3) H 07/30/18 05:43 Eosinophils % (Manual) 1.0 % (0.0-4.3) 07/30/18 05:43 Basophils % (Manual) 1.0 % (0.0-1.8) 07/30/18 05:43 Metamyelocytes % 0 % 07/30/18 05:43 Myelocytes % 0 % 07/30/18 05:43 Promyelocytes % 0 % 07/30/18 05:43 Blast Cells % 0 % 07/30/18 05:43 Nucleated RBC % Not Reportable 07/30/18 05:43 Seg Neutrophils # Man 3.1 K/mm3 (1.8-7.7) 07/30/18 05:43 Band Neutrophils # 0.0 K/mm3 07/30/18 05:43 Lymphocytes # (Manual) 0.8 K/mm3 (1.2-5.4) L 07/30/18 05:43 Abs React Lymphs (Man) 0.0 K/mm3 07/30/18 05:43 Monocytes # (Manual) 0.6 K/mm3 (0.0-0.8) 07/30/18 05:43 Eosinophils # (Manual) 0.0 K/mm3 (0.0-0.4) 07/30/18 05:43 Basophils # (Manual) 0.0 K/mm3 (0.0-0.1) 07/30/18 05:43 Metamyelocytes # 0.0 K/mm3 07/30/18 05:43 Myelocytes # 0.0 K/mm3 07/30/18 05:43 Promyelocytes # 0.0 K/mm3 07/30/18 05:43 Blast Cells # 0.0 K/mm3 07/30/18 05:43 WBC Morphology Not Reportable 07/30/18 05:43 Hypersegmented Neuts Not Reportable 07/30/18 05:43 Hyposegmented Neuts Not Reportable 07/30/18 05:43 Hypogranular Neuts Not Reportable 07/30/18 05:43 Smudge Cells Not Reportable 07/30/18 05:43 Toxic Granulation Not Reportable 07/30/18 05:43 Toxic Vacuolation Not Reportable 07/30/18 05:43 Dohle Bodies Not Reportable 07/30/18 05:43 Pelger-Huet Anomaly Not Reportable 07/30/18 05:43 Lamine Rods Not Reportable 07/30/18 05:43 Platelet Estimate Consistent w auto 07/30/18 05:43 Clumped Platelets Not Reportable 07/30/18 05:43 Plt Clumps, EDTA Not Reportable 07/30/18 05:43 Large Platelets Not Reportable 07/30/18 05:43 Giant Platelets Not Reportable 07/30/18 05:43 Platelet Satelliting Not Reportable 07/30/18 05:43 Plt Morphology Comment Not Reportable 07/30/18 05:43 RBC Morphology Not Reportable 07/30/18 05:43 Dimorphic RBCs Not Reportable 07/30/18 05:43 Polychromasia Not Reportable 07/30/18 05:43 Hypochromasia Not Reportable 07/30/18 05:43 Poikilocytosis Not Reportable 07/30/18 05:43 Anisocytosis Not Reportable 07/30/18 05:43 Microcytosis Not Reportable 07/30/18 05:43 Macrocytosis Not Reportable 07/30/18 05:43 Spherocytes Not Reportable 07/30/18 05:43 Pappenheimer Bodies Not Reportable 07/30/18 05:43 Sickle Cells Not Reportable 07/30/18 05:43 Target Cells Not Reportable 07/30/18 05:43 Tear Drop Cells Not Reportable 07/30/18 05:43 Ovalocytes Few 07/30/18 05:43 Helmet Cells Not Reportable 07/30/18 05:43 Pool-Sunol Bodies Not Reportable 07/30/18 05:43 Lewis Rings Not Reportable 07/30/18 05:43 Terry Cells Not Reportable 07/30/18 05:43 Bite Cells Not Reportable 07/30/18 05:43 Crenated Cell Not Reportable 07/30/18 05:43 Elliptocytes Not Reportable 07/30/18 05:43 Acanthocytes (Spur) Not Reportable 07/30/18 05:43 Rouleaux Not Reportable 07/30/18 05:43 Hemoglobin C Crystals Not Reportable 07/30/18 05:43 Schistocytes Not Reportable 07/30/18 05:43 Malaria parasites Not Reportable 07/30/18 05:43 Brock Bodies Not Reportable 07/30/18 05:43 Hem Pathologist Commnt No 07/30/18 05:43 PT 16.6 Sec. (12.2-14.9) H 07/24/18 11:08 INR 1.26 (0.87-1.13) H 07/24/18 11:08 APTT 24.9 Sec. (24.2-36.6) 07/24/18 11:08 Sodium 138 mmol/L (137-145) 07/30/18 05:43 Potassium 3.9 mmol/L (3.6-5.0) D 07/30/18 05:43 Chloride 103.8 mmol/L (98-107) 07/30/18 05:43 Carbon Dioxide 22 mmol/L (22-30) 07/30/18 05:43 Anion Gap 16 mmol/L 07/30/18 05:43 BUN 3 mg/dL (7-17) L 07/30/18 05:43 Creatinine 0.6 mg/dL (0.7-1.2) L 07/30/18 05:43 Estimated GFR > 60 ml/min 07/30/18 05:43 BUN/Creatinine Ratio 5 % 07/30/18 05:43 Glucose 112 mg/dL (65-100) H 07/30/18 05:43 POC Glucose 99 (70-105) 07/28/18 21:58 Hemoglobin A1c 5.4 % (4-6) 07/24/18 17:12 Calcium 8.0 mg/dL (8.4-10.2) L 07/30/18 05:43 Total Bilirubin 1.50 mg/dL (0.1-1.2) H 07/30/18 05:43 AST 47 units/L (5-40) H 07/30/18 05:43 ALT 26 units/L (7-56) 07/30/18 05:43 Alkaline Phosphatase 99 units/L (35-129) 07/30/18 05:43 Ammonia 56.0 umol/L (25-60) 07/27/18 17:28 Total Creatine Kinase 88 units/L (30-135) 07/24/18 11:08 CK-MB (CK-2) 3.6 ng/mL (0.0-4.0) 07/24/18 11:08 CK-MB (CK-2) Rel Index 4.0 (0-4) 07/24/18 11:08 Troponin T < 0.010 ng/mL (0.00-0.029) 07/24/18 11:08 Total Protein 5.6 g/dL (6.3-8.2) L 07/30/18 05:43 Albumin 3.1 g/dL (3.9-5) L 07/30/18 05:43 Albumin/Globulin Ratio 1.2 % 07/30/18 05:43 TSH 9.060 mlU/mL (0.270-4.200) H 07/24/18 11:08 Free T4 1.08 ng/dL (0.76-1.46) 07/24/18 11:08 Urine Color Yellow (Yellow) 07/24/18 Unknown Urine Turbidity Clear (Clear) 07/24/18 Unknown Urine pH 5.0 (5.0-7.0) 07/24/18 Unknown Ur Specific Ball 1.024 (1.003-1.030) 07/24/18 Unknown Urine Protein <15 mg/dl mg/dL (Negative) 07/24/18 Unknown Urine Glucose (UA) Neg mg/dL (Negative) 07/24/18 Unknown Urine Ketones Neg mg/dL (Negative) 07/24/18 Unknown Urine Blood Neg (Negative) 07/24/18 Unknown Urine Nitrite Neg (Negative) 07/24/18 Unknown Urine Bilirubin Neg (Negative) 07/24/18 Unknown Urine Urobilinogen < 2.0 mg/dL (<2.0) 07/24/18 Unknown Ur Leukocyte Esterase Neg (Negative) 07/24/18 Unknown Urine WBC (Auto) 1.0 /HPF (0.0-6.0) 07/24/18 Unknown Urine RBC (Auto) 1.0 /HPF (0.0-6.0) 07/24/18 Unknown Hyaline Casts 1 /LPF 07/24/18 Unknown Urine Mucus Few /HPF 07/24/18 Unknown Salicylates < 0.3 mg/dL (2.8-20.0) L 07/24/18 11:08 Urine Opiates Screen Presumptive negative 07/24/18 Unknown Urine Methadone Screen Presumptive negative 07/24/18 Unknown Acetaminophen < 5.0 ug/mL (10.0-30.0) L 07/24/18 11:08 Ur Barbiturates Screen Presumptive negative 07/24/18 Unknown Ur Phencyclidine Scrn Presumptive negative 07/24/18 Unknown Ur Amphetamines Screen Presumptive negative 07/24/18 Unknown U Benzodiazepines Scrn Presumptive negative 07/24/18 Unknown Urine Cocaine Screen Presumptive negative 07/24/18 Unknown U Marijuana (THC) Screen Presumptive negative 07/24/18 Unknown Drugs of Abuse Note Disclamer 07/24/18 Unknown Plasma/Serum Alcohol < 0.01 % (0-0.07) 07/24/18 11:08 Active Medications - Current Medications Current Medications: Generic Name Dose Route Start Last Admin Trade Name Freq PRN Reason Stop Dose Admin Acetaminophen 650 mg 07/24/18 16:40 07/30/18 09:46 Tylenol PO 650 mg Q4H PRN Administration Pain MILD(1-3)/Fever >100.5/PÉREZ Albuterol 2.5 mg 07/30/18 20:00 Proventil Q6HRT [facility] Albuterol/Ipratropium 1 ampul 07/30/18 20:00 Duoneb *Not For Prn Use* IH Q6HRT [facility] Aspirin 81 mg 07/24/18 17:00 07/30/18 10:10 Baby Aspirin PO 81 mg DAILY HUONG Administration Clopidogrel Bisulfate 75 mg 07/24/18 17:15 07/30/18 10:12 Plavix PO 75 mg DAILY HUONG Administration Folic Acid 1 mg 07/24/18 17:00 07/30/18 10:10 Folvite PO 1 mg QDAY HUONG Administration Furosemide 20 mg 07/24/18 17:00 07/30/18 10:10 Lasix PO 20 mg QDAY HUONG Administration Hydromorphone HCl 0.25 mg 07/24/18 16:40 07/26/18 05:00 Dilaudid IV 0.25 mg Q3H PRN Administration Pain, Moderate (4-6) Dextrose/Sodium Chloride 1,000 mls @ 75 mls/hr 07/29/18 16:00 07/30/18 07:06 D5ns IV 75 mls/hr DIRECT HUONG Administration Lactulose 20 gm 07/30/18 10:00 07/30/18 10:19 Cephulac PO 20 gm QDAY HUONG Administration Lamotrigine 25 mg 07/24/18 22:00 07/30/18 10:19 Lamictal PO 25 mg BID HUONG Administration Levetiracetam 1,500 mg 07/24/18 22:00 07/30/18 10:17 Keppra PO 1,500 mg BID HUOGN Administration Levothyroxine Sodium 100 mcg 07/25/18 06:00 07/30/18 06:41 Synthroid PO 100 mcg DAILY@0600 HUONG Administration Lorazepam 2 mg 07/25/18 00:01 Ativan IV Q1H PRN CIWA-Ar 8-15 Lorazepam 4 mg 07/25/18 00:01 Ativan IV Q1H PRN Lucy 16-25 Multivitamins 1 each 07/25/18 10:00 07/30/18 10:11 Theragran Tab PO 1 each DAILY HUONG Administration Ondansetron HCl 4 mg 07/24/18 16:40 Zofran IV Q8H PRN Nausea And Vomiting Rifaximin 550 mg 07/27/18 11:00 07/30/18 10:11 Xifaxan PO 550 mg BID HUONG Administration Spironolactone 50 mg 07/30/18 10:00 07/30/18 10:11 Aldactone PO 50 mg QDAY HUONG Administration Thiamine HCl 100 mg 07/24/18 17:00 07/30/18 10:10 Vitamin B-1 PO 100 mg QDAY HUONG Administration Trazodone HCl 50 mg 07/24/18 16:45 07/28/18 00:34 Desyrel PO 50 mg QHS PRN Administration Sleep
[2018-07-30] MEDS ORDERED: PROVENTIL IH PRN (19:01)
[2018-07-30] MEDS ORDERED: PROVENTIL IH SCH (20:00)
[2018-07-30] MEDS ORDERED: DUONEB *Not for PRN Use IH SCH (20:00)
--- NOTE | 2018-07-30 20:14 | Nuclear Medicine Report ---
PROCEDURE: Nuclear medicine ventilation and perfusion lung scan. TECHNIQUE: Ventilation imaging was done in the posterior projection using 25.9 mCi of xenon-133 gas. Perfusion imaging was done in multiple projections using 4.89 mCi of technetium 99m MAA. HISTORY: Shortness of breath, rule out pulmonary embolism. COMPARISONS: None. FINDINGS: There is symmetrical, homogeneous ventilation bilaterally. There is very minimal trapping of xenon ga s at the left lung base during the washout phase. The perfusion images are also quite homogeneous. Th ere are no definite perfusion defects identified. The lung scan caries a very low probability of pulm onary embolism. IMPRESSION: Very low probability of pulmonary embolism. This document is electronically signed by Trevon James MD., July 30 2018 08:11:56 PM ET
[2018-07-30] MEDS: HEPARIN SUB-Q SCH (22:31)
[2018-07-31 05:24] LABS: Hemoglobin 11.3 gm/dl (10.1-14.3); Mean Corpuscular HGB Conc 33 % (30-34); Mean Corpuscular Volume 87 fl (79-97); Platelet Count 103 K/mm3 (140-440); Red Blood Count 3.89 M/mm3 (3.65-5.03); Red Cell Distribution Width 17.4 % (13.2-15.2)
[2018-07-31 06:02] LABS: Alanine Aminotransferase 27 units/L (7-56); Albumin 2.8 g/dL (3.9-5); BUN/Creatinine Ratio 8; Blood Urea Nitrogen 5 mg/dL (7-17); Calcium 7.9 mg/dL (8.4-10.2); Hemolysis Index 5
[2018-07-31] MEDS: D5NS 1,000 ML IV SCH (06:16)
[2018-07-31] MEDS: SYNTHROID PO SCH (06:17)
[2018-07-31] MEDS: HEPARIN SUB-Q SCH ×3 (06:18→23:05)
[2018-07-31 06:58] LABS: Anisocytosis Few; Band Neutrophils # (Manual) 0.2 K/mm3; Basophils % (Manual) 0 % (0.0-1.8); Ovalocytes Few; Total Cells Counted 100
[2018-07-31 07:07] LABS: Platelet Estimate Consistent w Auto
[2018-07-31] MEDS: DUONEB *Not for PRN Use IH SCH ×3 (07:33→20:26)
--- NOTE | 2018-07-31 07:57 | Progress Note ---
Assessment and Plan Assessment and plan: Patient is a 62 yo woman with a history of alcohol abuse with dementia, Brain aneuyrsm x 2, CVA, hypertension, GERD, Arthritis, Seizures disorder and bipolar disorder with a history of AMS. Hypoxic ACUTE Respiratory failure -Continue nebs -ct chest was unobtainable due to access. V/Q scan done and was low probability -ABG- SHOWS HYPOXIA Overnight was placed on venturi mask. Will discontinue IV fluids. Obtain stat chest xray and also ABG on room air. Pulmonary consult. PENDING. Patient with remote hx of Tobacco use. ? UNDERLYING COPD - Hepatic encephalopathy: Serial ammonia level back to normal, Repeat today GI consult INPUT NOTED On lactulose added to home Xifamin - Thrombocytopenia: ETOH induced improving, monitor cbc - Seizure Disorder: continue antiepileptic meds - Hypernatremia: resolved Resolved with d5w, repeat levels in am -Hypokalemia: corrected Replace and recheck in am, as well as Mg level - Cirrhosis: GI is following - Debility due to Senility, pt requring assistance with ambulation PT eval and tx. Unable to follow instruction Dementia: Per case management and also caregiver, patient has underlying jaundice and appears back to her baseline. Although am still concerned with her ambulation. Disposition: D/w Case MX. Personal skilled nursing staff will be ready to take her back tomorrow. They state ability to take care of pt's nursing need declined SNF. - DVT ppx with HEPARIN History Interval history: Patient seen and examined, more of delirum than pure encephalopathy, has periods of lucidity, required more oxygen yesterday Hospitalist Physical - Physical exam Narrative exam: Narrative exam: Gen: chronic disable NAD, Awake, Alert, Orientated x 1 to person only HEENT: NCAT, EOMI, PERRL, OP Clear Neck: supple, no adenopathy, no thyromegaly, no JVD CVS/Heart: Regular bradycardia, normal S1S2, pulses present bilaterally Chest/Lungs: CTA B, Symmetrical chest expansion, good air entry bilaterally GI/Abdomen: soft, NTND, good bowel sounds, no guarding or rebound /Bladder: no suprapubic tenderness, no CVA or paraspinal tenderness Extermity/Skin: no c/c/e, no obvious rash MSK: FROM x 4 Neuro: CN 2-12 grossly intact, no new focal deficits Psych: calm - Constitutional Vitals: Temp Pulse Resp BP Pulse Ox 98.2 F 81 18 90/49 93 07/31/18 05:48 07/31/18 07:43 07/31/18 07:43 07/31/18 05:48 07/31/18 07:33 General appearance: Present: no acute distress Results - Labs CBC & Chem 7: 07/31/18 05:03 07/31/18 05:03 Labs: Laboratory Last Values WBC 3.5 K/mm3 (4.5-11.0) L 07/31/18 05:03 RBC 3.89 M/mm3 (3.65-5.03) 07/31/18 05:03 Hgb 11.3 gm/dl (10.1-14.3) 07/31/18 05:03 Hct 34.0 % (30.3-42.9) 07/31/18 05:03 MCV 87 fl (79-97) 07/31/18 05:03 MCH 29 pg (28-32) 07/31/18 05:03 MCHC 33 % (30-34) 07/31/18 05:03 RDW 17.4 % (13.2-15.2) H 07/31/18 05:03 Plt Count 103 K/mm3 (140-440) L 07/31/18 05:03 [place] % (Auto) Core Feeder 07/31/18 05:03 Add Manual Diff Complete 07/31/18 05:03 Total Counted 100 07/31/18 05:03 Seg Neuts % (Manual) 64.0 % (40.0-70.0) 07/31/18 05:03 Band Neutrophils % 5.0 % 07/31/18 05:03 Lymphocytes % (Manual) 10.0 % (13.4-35.0) L 07/31/18 05:03 Reactive Lymphs % (Man) 0 % 07/31/18 05:03 Monocytes % (Manual) 18.0 % (0.0-7.3) H 07/31/18 05:03 Eosinophils % (Manual) 3.0 % (0.0-4.3) 07/31/18 05:03 Basophils % (Manual) 0 % (0.0-1.8) 07/31/18 05:03 Metamyelocytes % 0 % 07/31/18 05:03 Myelocytes % 0 % 07/31/18 05:03 Promyelocytes % 0 % 07/31/18 05:03 Blast Cells % 0 % 07/31/18 05:03 Nucleated RBC % Not Reportable 07/31/18 05:03 Seg Neutrophils # Man 2.2 K/mm3 (1.8-7.7) 07/31/18 05:03 Band Neutrophils # 0.2 K/mm3 07/31/18 05:03 Lymphocytes # (Manual) 0.4 K/mm3 (1.2-5.4) L 07/31/18 05:03 Abs React Lymphs (Man) 0.0 K/mm3 07/31/18 05:03 Monocytes # (Manual) 0.6 K/mm3 (0.0-0.8) 07/31/18 05:03 Eosinophils # (Manual) 0.1 K/mm3 (0.0-0.4) 07/31/18 05:03 Basophils # (Manual) 0.0 K/mm3 (0.0-0.1) 07/31/18 05:03 Metamyelocytes # 0.0 K/mm3 07/31/18 05:03 Myelocytes # 0.0 K/mm3 07/31/18 05:03 Promyelocytes # 0.0 K/mm3 07/31/18 05:03 Blast Cells # 0.0 K/mm3 07/31/18 05:03 WBC Morphology Not Reportable 07/31/18 05:03 Hypersegmented Neuts Not Reportable 07/31/18 05:03 Hyposegmented Neuts Not Reportable 07/31/18 05:03 Hypogranular Neuts Not Reportable 07/31/18 05:03 Smudge Cells Not Reportable 07/31/18 05:03 Toxic Granulation Not Reportable 07/31/18 05:03 Toxic Vacuolation Not Reportable 07/31/18 05:03 Dohle Bodies Not Reportable 07/31/18 05:03 Pelger-Huet Anomaly Not Reportable 07/31/18 05:03 Lamine Rods Not Reportable 07/31/18 05:03 Platelet Estimate Consistent w auto 07/31/18 05:03 Clumped Platelets Not Reportable 07/31/18 05:03 Plt Clumps, EDTA Not Reportable 07/31/18 05:03 Large Platelets Not Reportable 07/31/18 05:03 Giant Platelets Not Reportable 07/31/18 05:03 Platelet Satelliting Not Reportable 07/31/18 05:03 Plt Morphology Comment Not Reportable 07/31/18 05:03 RBC Morphology Not Reportable 07/31/18 05:03 Dimorphic RBCs Not Reportable 07/31/18 05:03 Polychromasia Not Reportable 07/31/18 05:03 Hypochromasia Not Reportable 07/31/18 05:03 Poikilocytosis Not Reportable 07/31/18 05:03 Anisocytosis Few 07/31/18 05:03 Microcytosis Not Reportable 07/31/18 05:03 Macrocytosis Not Reportable 07/31/18 05:03 Spherocytes Not Reportable 07/31/18 05:03 Pappenheimer Bodies Not Reportable 07/31/18 05:03 Sickle Cells Not Reportable 07/31/18 05:03 Target Cells Not Reportable 07/31/18 05:03 Tear Drop Cells Not Reportable 07/31/18 05:03 Ovalocytes Few 07/31/18 05:03 Helmet Cells Not Reportable 07/31/18 05:03 [place] Bodies Not Reportable 07/31/18 05:03 [place] Rings Not Reportable 07/31/18 05:03 Terry Cells Not Reportable 07/31/18 05:03 Bite Cells Not Reportable 07/31/18 05:03 Crenated Cell Not Reportable 07/31/18 05:03 Elliptocytes Few 07/31/18 05:03 Acanthocytes (Spur) Not Reportable 07/31/18 05:03 Rouleaux Not Reportable 07/31/18 05:03 Hemoglobin C Crystals Not Reportable 07/31/18 05:03 Schistocytes Not Reportable 07/31/18 05:03 Malaria parasites Not Reportable 07/31/18 05:03 Brock Bodies Not Reportable 07/31/18 05:03 Hem Pathologist Commnt No 07/31/18 05:03 PT 16.6 Sec. (12.2-14.9) H 07/24/18 11:08 INR 1.26 (0.87-1.13) H 07/24/18 11:08 APTT 24.9 Sec. (24.2-36.6) 07/24/18 11:08 Sodium 140 mmol/L (137-145) 07/31/18 05:03 Potassium 3.6 mmol/L (3.6-5.0) 07/31/18 05:03 Chloride 105.6 mmol/L (98-107) 07/31/18 05:03 Carbon Dioxide 22 mmol/L (22-30) 07/31/18 05:03 Anion Gap 16 mmol/L 07/31/18 05:03 BUN 5 mg/dL (7-17) L 07/31/18 05:03 Creatinine 0.6 mg/dL (0.7-1.2) L 07/31/18 05:03 Estimated GFR > 60 ml/min 07/31/18 05:03 BUN/Creatinine Ratio 8 % 07/31/18 05:03 Glucose 103 mg/dL (65-100) H 07/31/18 05:03 POC Glucose 99 (70-105) 07/28/18 21:58 Hemoglobin A1c 5.4 % (4-6) 07/24/18 17:12 Calcium 7.9 mg/dL (8.4-10.2) L 07/31/18 05:03 Total Bilirubin 1.30 mg/dL (0.1-1.2) H 07/31/18 05:03 AST 45 units/L (5-40) H 07/31/18 05:03 ALT 27 units/L (7-56) 07/31/18 05:03 Alkaline Phosphatase 99 units/L (35-129) 07/31/18 05:03 Ammonia 56.0 umol/L (25-60) 07/27/18 17:28 Total Creatine Kinase 88 units/L (30-135) 07/24/18 11:08 CK-MB (CK-2) 3.6 ng/mL (0.0-4.0) 07/24/18 11:08 CK-MB (CK-2) Rel Index 4.0 (0-4) 07/24/18 11:08 Troponin T < 0.010 ng/mL (0.00-0.029) 07/24/18 11:08 Total Protein 5.2 g/dL (6.3-8.2) L 07/31/18 05:03 Albumin 2.8 g/dL (3.9-5) L 07/31/18 05:03 Albumin/Globulin Ratio 1.2 % 07/31/18 05:03 TSH 9.060 mlU/mL (0.270-4.200) H 07/24/18 11:08 Free T4 1.08 ng/dL (0.76-1.46) 07/24/18 11:08 Urine Color Yellow (Yellow) 07/24/18 Unknown Urine Turbidity Clear (Clear) 07/24/18 Unknown Urine pH 5.0 (5.0-7.0) 07/24/18 Unknown Ur Specific [place] 1.024 (1.003-1.030) 07/24/18 Unknown Urine Protein <15 mg/dl mg/dL (Negative) 07/24/18 Unknown Urine Glucose (UA) Neg mg/dL (Negative) 07/24/18 Unknown Urine Ketones Neg mg/dL (Negative) 07/24/18 Unknown Urine Blood Neg (Negative) 07/24/18 Unknown Urine Nitrite Neg (Negative) 07/24/18 Unknown Urine Bilirubin Neg (Negative) 07/24/18 Unknown Urine Urobilinogen < 2.0 mg/dL (<2.0) 07/24/18 Unknown Ur Leukocyte Esterase Neg (Negative) 07/24/18 Unknown Urine WBC (Auto) 1.0 /HPF (0.0-6.0) 07/24/18 Unknown Urine RBC (Auto) 1.0 /HPF (0.0-6.0) 07/24/18 Unknown Hyaline Casts 1 /LPF 07/24/18 Unknown Urine Mucus Few /HPF 07/24/18 Unknown Salicylates < 0.3 mg/dL (2.8-20.0) L 07/24/18 11:08 Urine Opiates Screen Presumptive negative 07/24/18 Unknown Urine Methadone Screen Presumptive negative 07/24/18 Unknown Acetaminophen < 5.0 ug/mL (10.0-30.0) L 07/24/18 11:08 Ur Barbiturates Screen Presumptive negative 07/24/18 Unknown Ur Phencyclidine Scrn Presumptive negative 07/24/18 Unknown Ur Amphetamines Screen Presumptive negative 07/24/18 Unknown U Benzodiazepines Scrn Presumptive negative 07/24/18 Unknown Urine Cocaine Screen Presumptive negative 07/24/18 Unknown U Marijuana (THC) Screen Presumptive negative 07/24/18 Unknown Drugs of Abuse Note Disclamer 07/24/18 Unknown Plasma/Serum Alcohol < 0.01 % (0-0.07) 07/24/18 11:08 Active Medications - Current Medications Current Medications: Generic Name Dose Route Start Last Admin Trade Name Олегq PRN Reason Stop Dose Admin Acetaminophen 650 mg 07/24/18 16:40 07/30/18 09:46 Tylenol PO 650 mg Q4H PRN Administration Pain MILD(1-3)/Fever >100.5/PÉREZ Albuterol 2.5 mg 07/30/18 19:01 Proventil IH Q6HRT PRN Shortness Of Breath Albuterol/Ipratropium 1 ampul 07/31/18 08:00 07/31/18 07:33 Duoneb *Not For Prn Use* IH 1 ampul TIDRT HUONG Administration Aspirin 81 mg 07/24/18 17:00 07/30/18 10:10 Baby Aspirin PO 81 mg DAILY HUONG Administration Clopidogrel Bisulfate 75 mg 07/24/18 17:15 07/30/18 10:12 Plavix PO 75 mg DAILY HUONG Administration Folic Acid 1 mg 07/24/18 17:00 07/30/18 10:10 Folvite PO 1 mg QDAY HUONG Administration Furosemide 20 mg 07/24/18 17:00 07/30/18 10:10 Lasix PO 20 mg QDAY HUONG Administration Heparin Sodium (Porcine) 5,000 unit 07/30/18 22:00 07/31/18 06:18 Heparin SUB-Q 5,000 unit Q8HR HUONG Administration Hydromorphone HCl 0.25 mg 07/24/18 16:40 07/26/18 05:00 Dilaudid IV 0.25 mg Q3H PRN Administration Pain, Moderate (4-6) Lactulose 20 gm 07/30/18 10:00 07/30/18 10:19 Cephulac PO 20 gm QDAY HUONG Administration Lamotrigine 25 mg 07/24/18 22:00 07/30/18 22:31 Lamictal PO 25 mg BID HUONG Administration Levetiracetam 1,500 mg 07/24/18 22:00 07/30/18 22:30 Keppra PO 1,500 mg BID HUONG Administration Levothyroxine Sodium 100 mcg 07/25/18 06:00 07/31/18 06:17 Synthroid PO 100 mcg DAILY@0600 HUONG Administration Lorazepam 2 mg 07/25/18 00:01 Ativan IV Q1H PRN CIWA-Ar 8-15 Lorazepam 4 mg 07/25/18 00:01 Ativan IV Q1H PRN CIWA-Ar 16-25 Multivitamins 1 each 07/25/18 10:00 07/30/18 10:11 Theragran Tab PO 1 each DAILY HUONG Administration Ondansetron HCl 4 mg 07/24/18 16:40 Zofran IV Q8H PRN Nausea And Vomiting Rifaximin 550 mg 07/27/18 11:00 07/30/18 22:30 Xifaxan PO 550 mg BID HUONG Administration Spironolactone 50 mg 07/30/18 10:00 07/30/18 10:11 Aldactone PO 50 mg QDAY HUONG Administration Thiamine HCl 100 mg 07/24/18 17:00 07/30/18 10:10 Vitamin B-1 PO 100 mg QDAY HUONG Administration Trazodone HCl 50 mg 07/24/18 16:45 07/28/18 00:34 Desyrel PO 50 mg QHS PRN Administration Sleep Nutrition/Malnutrition Assess - Dietary Evaluation Nutrition/Malnutrition Findings: Nutrition Notes Start: 07/30/18 15:57 Freq: Status: Active Protocol: Document 07/30/18 15:57 RM (Rec: 07/30/18 16:00 RM [id number]) Nutrition Notes Need for Assessment generated from: LOS Initial or Follow up Assessment Other Pertinent Diagnosis Alcohol abuse, Alcohol induced dementia,Seizures,Bipolar disorder,Cirrhosis Current Diet Pureed Labs/Tests Reviewed Pertinent Medications Lasix Height 5 ft 4 in Weight 64 kg [place] Body Weight (kg) 54.54 BMI 24.2 Subjective/Other Information Screened for LOS. No family present to facilitate assessment. Recorded PO intake 48% X 3 days. Percent of energy/protein needs met: 56%/72% Burn Absent Trauma Absent #1 Nutrition Diagnosis Inadequate oral intake Etiology dementia As Evidenced by Signs and Symptoms recorded PO intake 48% X 3 days Is patient on ventilator? No Is Patient Ambulatory and/or Out of Bed Yes REE-(Vantage-St. Jeor-ambulatory/OOB) [ 1547.000 [id number]] Calculation Used for Recommendations Vantage-St Jeor Additional Notes Protein Needs: 51-64g (0.8-1g/ kg) Fluid Needs: 1 ml/kcal Nutrition Intervention Change Diet Order: Contine current Add Supplement/Snack (indicate name/kcal Ensure Enlive 1 daily /protein ) Provides kCal: 350 Provides Protein (gm) 20 Goal #1 Meet at least 75% of calorie and protein needs via PO and ONS intakes Anticipated Discharge Needs: Pureed diet Follow-Up By: 08/02/18 Additional Comments Follow for PO and ONS intakes
--- NOTE | 2018-07-31 10:04 | XRay Report ---
PROCEDURE: XR CHEST 1V AP TECHNIQUE: Chest radiograph, portable AP view. HISTORY: HYPOXIC RESPIRATORY FAILURE COMPARISONS: None currently available. FINDINGS: Cardiac silhouette is within normal limits. Aortic calcifications. There is no effusion. There is no pneumothorax. There is no consolidation. There are no suspicious osseous lesions. IMPRESSION: * No acute cardiopulmonary findings. This document is electronically signed by Henrry Roman MD., July 31 2018 10:01:44 AM ET
[2018-07-31] MEDS: KEPPRA PO SCH ×2 (11:19→23:04)
[2018-07-31] MEDS: CEPHULAC PO SCH (11:19)
[2018-07-31] MEDS: PLAVIX PO SCH (11:19)
[2018-07-31] MEDS: BABY ASPIRIN PO SCH (11:20)
[2018-07-31] MEDS: XIFAXAN PO SCH ×2 (11:20→23:04)
[2018-07-31] MEDS: LaMICtal PO SCH ×2 (11:20→23:36)
[2018-07-31] MEDS: ALDACTONE PO SCH (11:22)
[2018-07-31] MEDS: LASIX PO SCH (11:23)
[2018-07-31] MEDS: FOLVITE PO SCH (11:23)
[2018-07-31] MEDS: THERAGRAN Tab PO SCH (11:23)
[2018-07-31] MEDS: VITAMIN B-1 PO SCH (11:23)
--- NOTE | 2018-07-31 15:43 | Vascular Lab Report ---
PROCEDURE: US RIGHT AND LEFT LOWER EXTREMITY VENOUS DUPLEX DOPPLER TECHNIQUE: Duplex Doppler ultrasound of the right and left common and superficial femoral, popliteal , posterior tibial, and proximal deep femoral and greater saphenous veins was attempted. Yi scale i maging with and without compression, spectral waveform analysis with and without augmentation, and co gregoria flow Doppler were employed. CPT 78554-EB HISTORY: Evaluate deep venous thrombosis COMPARISONS: None . FINDINGS: Deep Venous Thrombus: None . Superficial Venous Thrombus: None . Venous valvular incompetence: None . Soft tissue abnormality: None . Other: None . IMPRESSION: No evidence of DVT in the right lower extremities. . This document is electronically signed by Scot Gillis MD., July 31 2018 03:41:37 PM ET
--- NOTE | 2018-07-31 16:32 | Consultation ---
History of Present Illness Consult date: 07/31/18 Requesting physician: CATHERINE MANN Reason for consult: hypoxemia History of present illness: 62 yo with hx of tobacco abuse, alcohol abuse, admitted with hepatic encephalopathy, better now. However, she is found to be hypoxic requiring O2 for unclear reasons. She is a very poor historian, endorses SOB, wheezing, cough, chest pain. No hemoptysis. Active Medications Acetaminophen (Tylenol) 650 mg PO Q4H PRN PRN Reason: Pain MILD(1-3)/Fever >100.5/PÉREZ Last Admin: 07/30/18 09:46 Dose: 650 mg Documented by: Albuterol (Proventil) 2.5 mg IH Q6HRT PRN PRN Reason: Shortness Of Breath Albuterol/Ipratropium (Duoneb *Not For Prn Use*) [address] [facility] Last Admin: 07/31/18 14:39 Dose: 1 ampul Documented by: Aspirin (Baby Aspirin) [address] [facility] Last Admin: 07/31/18 11:20 Dose: 81 mg Documented by: Clopidogrel Bisulfate (Plavix) [address] [facility] Last Admin: 07/31/18 11:19 Dose: 75 mg Documented by: Folic Acid (Folvite) [address] [facility] Last Admin: 07/31/18 11:23 Dose: 1 mg Documented by: Furosemide (Lasix) [address] [facility] Last Admin: 07/31/18 11:23 Dose: 20 mg Documented by: Heparin Sodium (Porcine) (Heparin) 5,000 unit SUB-Q Q8HR [facility] Last Admin: 07/31/18 06:18 Dose: 5,000 unit Documented by: Hydromorphone HCl (Dilaudid) 0.25 mg IV Q3H PRN PRN Reason: Pain, Moderate (4-6) Last Admin: 07/26/18 05:00 Dose: 0.25 mg Documented by: Lactulose (Cephulac) [address] [facility] Last Admin: 07/31/18 11:19 Dose: 20 gm Documented by: Lamotrigine (Lamictal) [address] [facility] Last Admin: 07/31/18 11:20 Dose: 25 mg Documented by: Levetiracetam (Keppra) 1,[address] [facility] Last Admin: 07/31/18 11:19 Dose: 1,500 mg Documented by: Levothyroxine Sodium (Synthroid) 100 mcg PO DAILY@0600 [facility] Last Admin: 07/31/18 06:17 Dose: 100 mcg Documented by: Lorazepam (Ativan) 2 mg IV Q1H PRN PRN Reason: CIWA-Ar 8-15 Lorazepam (Ativan) 4 mg IV Q1H PRN PRN Reason: CIWA-Ar 16-25 Multivitamins (Theragran Tab) [address] [facility] Last Admin: 07/31/18 11:23 Dose: 1 each Documented by: Ondansetron HCl (Zofran) 4 mg IV Q8H PRN PRN Reason: Nausea And Vomiting Rifaximin (Xifaxan) [address] [facility] Last Admin: 07/31/18 11:20 Dose: 550 mg Documented by: Spironolactone (Aldactone) [address] [facility] Last Admin: 07/31/18 11:22 Dose: Not Given Documented by: Thiamine HCl (Vitamin B-1) [address] 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 denies: smoking, prescription drug abuse, IV drug use Family history: no significant family history (no pulm issues reported) Medications and Allergies Allergies Allergy/AdvReac Type Severity Reaction Status Date / Time No Known Allergies Allergy Verified 06/14/15 10:49 Home Medications Medication Instructions Recorded Confirmed Last Taken Type Folic Acid [Folvite] 1 mg PO QDAY 11/02/13 07/29/18 06/22/17 History Multivitamin [Multi-Vitamin Daily] 1 each PO DAILY 11/02/13 07/29/18 06/22/17 History Aspirin [Aspirin BABY CHEW TAB] 1 tab PO DAILY 05/10/14 07/29/18 06/22/17 History Furosemide [Lasix TAB] 20 mg PO QDAY 08/11/17 07/29/18 Unknown History Famotidine [Pepcid] 40 mg PO QHS #30 tablet 08/16/17 07/29/18 Unknown Rx Lactulose [Cephulac] 30 gm PO TID #900 oral.liqd 08/16/17 07/29/18 Unknown Rx Levothyroxine [Synthroid] 75 mcg PO DAILY@0600 #30 tablet 08/16/17 07/29/18 Unknown Rx Plavix 75 mg PO DAILY #30 08/16/17 07/29/18 Unknown Rx Propranolol LA [Inderal LA] 60 mg PO QDAY #30 capsule 08/16/17 07/29/18 Unknown Rx Thiamine [Vitamin B-1] 100 mg PO QDAY #30 tablet 08/16/17 07/29/18 Unknown Rx lamoTRIgine [LaMICtal] 25 mg PO BID #50 tablet 08/16/17 07/29/18 Unknown Rx levETIRAcetam [Keppra TAB] 1,500 mg PO BID #60 tablet 08/16/17 07/29/18 Unknown Rx traZODone [Desyrel] 50 mg PO QHS PRN #30 tablet 08/16/17 07/29/18 Unknown Rx Rifaximin [Xifaxan] 550 mg PO BID #60 tablet 07/30/18 Unknown Rx Spironolactone [Aldactone] 50 mg PO QDAY #30 tablet 07/30/18 Unknown Rx Active Meds: Active Medications Acetaminophen (Tylenol) 650 mg PO Q4H PRN PRN Reason: Pain MILD(1-3)/Fever >100.5/PÉREZ Last Admin: 07/30/18 09:46 Dose: 650 mg Documented by: Albuterol (Proventil) 2.5 mg IH Q6HRT PRN PRN Reason: Shortness Of Breath Albuterol/Ipratropium (Duoneb *Not For Prn Use*) [address] [facility] Last Admin: 07/31/18 14:39 Dose: 1 ampul Documented by: Aspirin (Baby Aspirin) [address] [facility] Last Admin: 07/31/18 11:20 Dose: 81 mg Documented by: Clopidogrel Bisulfate (Plavix) [address] [facility] Last Admin: 07/31/18 11:19 Dose: 75 mg Documented by: Folic Acid (Folvite) [address] [facility] Last Admin: 07/31/18 11:23 Dose: 1 mg Documented by: Furosemide (Lasix) [address] [facility] Last Admin: 07/31/18 11:23 Dose: 20 mg Documented by: Heparin Sodium (Porcine) (Heparin) 5,000 unit SUB-Q Q8HR [facility] Last Admin: 07/31/18 06:18 Dose: 5,000 unit Documented by: Hydromorphone HCl (Dilaudid) 0.25 mg IV Q3H PRN PRN Reason: Pain, Moderate (4-6) Last Admin: 07/26/18 05:00 Dose: 0.25 mg Documented by: Lactulose (Cephulac) [address] [facility] Last Admin: 07/31/18 11:19 Dose: 20 gm Documented by: Lamotrigine (Lamictal) [address] [facility] Last Admin: 07/31/18 11:20 Dose: 25 mg Documented by: Levetiracetam (Keppra) 1,[address] [facility] Last Admin: 07/31/18 11:19 Dose: 1,500 mg Documented by: Levothyroxine Sodium (Synthroid) 100 mcg PO DAILY@0600 [facility] Last Admin: 07/31/18 06:17 Dose: 100 mcg Documented by: Lorazepam (Ativan) 2 mg IV Q1H PRN PRN Reason: CIWA-Ar 8-15 Lorazepam (Ativan) 4 mg IV Q1H PRN PRN Reason: CIWA-Ar 16-25 Multivitamins (Theragran Tab) [address] [facility] Last Admin: 07/31/18 11:23 Dose: 1 each Documented by: Ondansetron HCl (Zofran) 4 mg IV Q8H PRN PRN Reason: Nausea And Vomiting Rifaximin (Xifaxan) [address] [facility] Last Admin: 07/31/18 11:20 Dose: 550 mg Documented by: Spironolactone (Aldactone) [address] [facility] Last Admin: 07/31/18 11:22 Dose: Not Given Documented by: Thiamine HCl (Vitamin B-1) [address] [facility] Last Admin: 07/31/18 11:23 Dose: 100 mg Documented by: Trazodone HCl (Desyrel) 50 mg PO QHS PRN PRN Reason: Sleep Last Admin: 07/28/18 00:34 Dose: 50 mg Documented by: Review of Systems All systems: negative Physical Examination Vital signs: Vital Signs Pulse Resp 54 L 12 07/24/18 11:17 07/24/18 11:17 General appearance: no acute distress, alert Eyes: non-icteric ENT: oropharynx moist Neck: supple Effort: normal Ascultation: Bilateral: diminished breath sounds Cardiovascular: regular rate and rhythm (no mrg) Gastrointestinal: normoactive bowel sounds, soft, non-tender, non-distended Integumentary: normal Extremities: no cyanosis, no edema, pink and warm non-focal exam, pupils equal and round, CN II-XII normal, other (confused) mood appropriate, affect normal Results - Laboratory Findings CBC and BMP: 07/31/18 05:03 07/31/18 05:03 ABG POC ABG pH 7.483 (7.35-7.45) H 07/31/18 13:39 POC ABG pCO2 33.3 (35-45) L 07/31/18 13:39 POC ABG HCO3 25.0 (22-26 mml/L) 07/31/18 13:39 POC ABG Total CO2 26 (23-27mmol/L) 07/31/18 13:39 POC ABG O2 Sat 83 07/31/18 13:39 PT/INR, D-dimer PT 16.6 Sec. (12.2-14.9) H 07/24/18 11:08 INR 1.26 (0.87-1.13) H 07/24/18 11:08 Abnormal lab findings: Abnormal Labs 07/24/18 07/24/18 07/24/18 11:08 11:08 11:08 WBC 3.6 L Hct RDW 17.5 H Plt Count 132 L Seg Neuts % (Manual) Lymphocytes % (Manual) Monocytes % (Manual) 9.0 H Nucleated RBC % 1.0 H Lymphocytes # (Manual) 0.8 L PT 16.6 H INR 1.26 H POC ABG pH POC ABG pCO2 Sodium Potassium Chloride Carbon Dioxide 20 L BUN Creatinine Glucose 141 H POC Glucose Calcium Total Bilirubin 1.50 H AST Ammonia Total Protein Albumin 3.7 L TSH Salicylates Acetaminophen 07/24/18 07/24/18 07/24/18 11:08 11:08 11:08 WBC Hct RDW Plt Count Seg Neuts % (Manual) Lymphocytes % (Manual) Monocytes % (Manual) Nucleated RBC % Lymphocytes # (Manual) PT INR POC ABG pH POC ABG pCO2 Sodium Potassium Chloride Carbon Dioxide BUN Creatinine Glucose POC Glucose Calcium Total Bilirubin AST Ammonia 139.0 H Total Protein Albumin TSH Salicylates < 0.3 L Acetaminophen < 5.0 L 07/24/18 07/24/18 07/25/18 11:08 12:08 05:05 WBC Hct RDW Plt Count Seg Neuts % (Manual) Lymphocytes % (Manual) Monocytes % (Manual) Nucleated RBC % Lymphocytes # (Manual) PT INR POC ABG pH POC ABG pCO2 Sodium Potassium Chloride Carbon Dioxide 21 L BUN Creatinine Glucose POC Glucose 114 H Calcium Total Bilirubin 1.80 H AST Ammonia Total Protein Albumin TSH 9.060 H Salicylates Acetaminophen 07/25/18 07/25/18 07/26/18 05:06 16:52 05:23 WBC Hct 43.3 H RDW 17.6 H 17.5 H Plt Count Seg Neuts % (Manual) 77.0 H Lymphocytes % (Manual) Monocytes % (Manual) Nucleated RBC % Lymphocytes # (Manual) 1.0 L PT INR POC ABG pH POC ABG pCO2 Sodium Potassium Chloride Carbon Dioxide BUN Creatinine Glucose POC Glucose Calcium Total Bilirubin AST Ammonia 74.0 H Total Protein Albumin TSH Salicylates Acetaminophen 07/26/18 07/26/18 07/27/18 05:23 17:09 07:53 WBC Hct RDW Plt Count Seg Neuts % (Manual) Lymphocytes % (Manual) Monocytes % (Manual) Nucleated RBC % Lymphocytes # (Manual) PT INR POC ABG pH POC ABG pCO2 Sodium 150 H Potassium 3.5 L Chloride 114.5 H Carbon Dioxide 21 L 21 L BUN Creatinine 0.5 L Glucose 107 H 118 H POC Glucose Calcium Total Bilirubin 1.40 H AST Ammonia 66.0 H Total Protein Albumin 3.8 L TSH Salicylates Acetaminophen 07/27/18 07/29/18 07/29/18 07:57 05:20 05:20 WBC Hct RDW 17.0 H 17.6 H Plt Count 131 L 135 L Seg Neuts % (Manual) Lymphocytes % (Manual) Monocytes % (Manual) 15.0 H Nucleated RBC % Lymphocytes # (Manual) PT INR POC ABG pH POC ABG pCO2 Sodium 134 L Potassium 3.1 L Chloride Carbon Dioxide 21 L BUN 3 L Creatinine 0.5 L Glucose 115 H POC Glucose Calcium 8.3 L Total Bilirubin 1.50 H AST 52 H Ammonia Total Protein 5.7 L Albumin 3.3 L TSH Salicylates Acetaminophen 07/30/18 07/30/18 07/31/18 05:43 05:43 05:03 WBC 3.5 L Hct RDW 17.8 H 17.4 H Plt Count 116 L 103 L Seg Neuts % (Manual) Lymphocytes % (Manual) 10.0 L Monocytes % (Manual) 12.0 H 18.0 H Nucleated RBC % Lymphocytes # (Manual) 0.8 L 0.4 L PT INR POC ABG pH POC ABG pCO2 Sodium Potassium Chloride Carbon Dioxide BUN 3 L Creatinine 0.6 L Glucose 112 H POC Glucose Calcium 8.0 L Total Bilirubin 1.50 H AST 47 H Ammonia Total Protein 5.6 L Albumin 3.1 L TSH Salicylates Acetaminophen 07/31/18 07/31/18 07/31/18 05:03 08:15 13:39 WBC Hct RDW Plt Count Seg Neuts % (Manual) Lymphocytes % (Manual) Monocytes % (Manual) Nucleated RBC % Lymphocytes # (Manual) PT INR POC ABG pH 7.483 H POC ABG pCO2 33.3 L Sodium Potassium Chloride Carbon Dioxide BUN 5 L Creatinine 0.6 L Glucose 103 H POC Glucose Calcium 7.9 L Total Bilirubin 1.30 H AST 45 H Ammonia 75.0 H Total Protein 5.2 L Albumin 2.8 L TSH Salicylates Acetaminophen - Diagnostic Findings Chest x-ray: report reviewed, image reviewed (clear lungs) Assessment and Plan Imp: 1. Hepatic encephalopathy 2. Liver cirrhosis, 2/2 EtOH 3. Chronic nicotine dependence, cigarettes 4. Acute respiratory failure, hypoxia; unclear etiology Rec: 1. CXR, V/Q unremarkable; possibilities include parenchymal lung disease not evident on CXR including emphysema, small effusions related to cirrhosis, and portopulmonary HTN; would obtain CT chest and, if unremarkable, would obtain Echo 2. Stop smoking 3. Further plans pending CT chest 4. Outpatient PFTs would be helpful but I'm not sure she can cooperate with such Plan of care reviewed w/ patient, she understands/agrees Thx for the consult.
[2018-08-01] MEDS: SYNTHROID PO SCH (05:17)
[2018-08-01] MEDS: HEPARIN SUB-Q SCH ×3 (05:18→23:51)
[2018-08-01] MEDS: DUONEB *Not for PRN Use IH SCH ×3 (08:29→21:22)
[2018-08-01] MEDS: CEPHULAC PO SCH (10:36)
[2018-08-01] MEDS: PLAVIX PO SCH (10:36)
[2018-08-01] MEDS: ALDACTONE PO SCH ×2 (10:37→10:59)
[2018-08-01] MEDS: BABY ASPIRIN PO SCH (10:37)
[2018-08-01] MEDS: KEPPRA PO SCH ×2 (10:37→23:47)
[2018-08-01] MEDS: XIFAXAN PO SCH ×2 (10:37→23:47)
[2018-08-01] MEDS: FOLVITE PO SCH (10:37)
[2018-08-01] MEDS: VITAMIN B-1 PO SCH (10:37)
[2018-08-01] MEDS: THERAGRAN Tab PO SCH (10:38)
[2018-08-01] MEDS: LaMICtal PO SCH ×2 (10:38→23:47)
[2018-08-01] MEDS: LASIX PO SCH (10:57)
--- NOTE | 2018-08-01 13:33 | Progress Note ---
Assessment and Plan Assessment and plan: Patient is a 62 yo woman with a history of alcohol abuse with dementia, Brain aneuyrsm x 2, CVA, hypertension, GERD, Arthritis, Seizures disorder and bipolar disorder with a history of AMS. CXR: No acute pulmonary abnormality Acute Hypoxic Respiratory failure Hepatic Encephalopathy Thrombocytopenia-secondary to etoh Sizure Disorder Hypernatremia Hypokalemia Cirrhosis Secondary to ETOH abuse Personal alf resident. Chronic Tobacco use disorder Debility due to Senility, Plan -Continue nebs -ct chest was unobtainable due to access. V/Q scan done and was low probability -ABG-Done, Hypoxia, PO2 verbal read- 59 -Continue Facemask, IV fluids discontinued -Lasix today, pt noted to have hypotension -pulmonary input noted. ECHO ordered. CT chest pending -Continue Lactulose with added xifamin - continue antiepileptic meds - pt requring assistance with ambulation -PT eval and tx. -dvt/gi PROPHY --Disposition: D/w Case [facility]. Personal alf staff will be ready to take her back once clinically improved. They state ability to take care of pt's nursing need declined SNF. History Interval history: Patient seen and examined, still on oxygen, mental status waxes and wanes, improved today. No new complain Hospitalist Physical - Physical exam Narrative exam: Narrative exam: Gen: chronic disable NAD, Awake, Alert, Orientated x [address], but often starts laughing HEENT: NCAT, EOMI, PERRL, OP Clear Neck: supple, no adenopathy, no thyromegaly, no JVD CVS/Heart: Regular bradycardia, normal S1S2, pulses present bilaterally Chest/Lungs: CTA B, Symmetrical chest expansion, good air entry bilaterally GI/Abdomen: soft, NTND, good bowel sounds, no guarding or rebound /Bladder: no suprapubic tenderness, no CVA or paraspinal tenderness Extermity/Skin: no c/c/e, no obvious rash MSK: FROM x 4 Neuro: CN 2-12 grossly intact, no new focal deficits Psych: calm - Constitutional Vitals: Temp Pulse Resp BP Pulse Ox 98.0 F 75 20 93/46 96 08/01/18 11:31 08/01/18 11:31 08/01/18 11:31 08/01/18 11:31 08/01/18 11:31 General appearance: Present: no acute distress Results - Labs CBC & Chem 7: 07/31/18 05:03 07/31/18 05:03 Labs: Laboratory Last Values WBC 3.5 K/mm3 (4.5-11.0) L 07/31/18 05:03 RBC 3.89 M/mm3 (3.65-5.03) 07/31/18 05:03 Hgb 11.3 gm/dl (10.1-14.3) 07/31/18 05:03 Hct 34.0 % (30.3-42.9) 07/31/18 05:03 MCV 87 fl (79-97) 07/31/18 05:03 MCH 29 pg (28-32) 07/31/18 05:03 MCHC 33 % (30-34) 07/31/18 05:03 RDW 17.4 % (13.2-15.2) H 07/31/18 05:03 Plt Count 103 K/mm3 (140-440) L 07/31/18 05:03 Lyman % (Auto) [employer] 07/31/18 05:03 Add Manual Diff Complete 07/31/18 05:03 Total Counted 100 07/31/18 05:03 Seg Neuts % (Manual) 64.0 % (40.0-70.0) 07/31/18 05:03 Band Neutrophils % 5.0 % 07/31/18 05:03 Lymphocytes % (Manual) 10.0 % (13.4-35.0) L 07/31/18 05:03 Reactive Lymphs % (Man) 0 % 07/31/18 05:03 Monocytes % (Manual) 18.0 % (0.0-7.3) H 07/31/18 05:03 Eosinophils % (Manual) 3.0 % (0.0-4.3) 07/31/18 05:03 Basophils % (Manual) 0 % (0.0-1.8) 07/31/18 05:03 Metamyelocytes % 0 % 07/31/18 05:03 Myelocytes % 0 % 07/31/18 05:03 Promyelocytes % 0 % 07/31/18 05:03 Blast Cells % 0 % 07/31/18 05:03 Nucleated RBC % Not Reportable 07/31/18 05:03 Seg Neutrophils # Man 2.2 K/mm3 (1.8-7.7) 07/31/18 05:03 Band Neutrophils # 0.2 K/mm3 07/31/18 05:03 Lymphocytes # (Manual) 0.4 K/mm3 (1.2-5.4) L 07/31/18 05:03 Abs React Lymphs (Man) 0.0 K/mm3 07/31/18 05:03 Monocytes # (Manual) 0.6 K/mm3 (0.0-0.8) 07/31/18 05:03 Eosinophils # (Manual) 0.1 K/mm3 (0.0-0.4) 07/31/18 05:03 Basophils # (Manual) 0.0 K/mm3 (0.0-0.1) 07/31/18 05:03 Metamyelocytes # 0.0 K/mm3 07/31/18 05:03 Myelocytes # 0.0 K/mm3 07/31/18 05:03 Promyelocytes # 0.0 K/mm3 07/31/18 05:03 Blast Cells # 0.0 K/mm3 07/31/18 05:03 WBC Morphology Not Reportable 07/31/18 05:03 Hypersegmented Neuts Not Reportable 07/31/18 05:03 Hyposegmented Neuts Not Reportable 07/31/18 05:03 Hypogranular Neuts Not Reportable 07/31/18 05:03 Smudge Cells Not Reportable 07/31/18 05:03 Toxic Granulation Not Reportable 07/31/18 05:03 Toxic Vacuolation Not Reportable 07/31/18 05:03 Dohle Bodies Not Reportable 07/31/18 05:03 Pelger-Huet Anomaly Not Reportable 07/31/18 05:03 Lamine Rods Not Reportable 07/31/18 05:03 Platelet Estimate Consistent w auto 07/31/18 05:03 Clumped Platelets Not Reportable 07/31/18 05:03 Plt Clumps, EDTA Not Reportable 07/31/18 05:03 Large Platelets Not Reportable 07/31/18 05:03 Giant Platelets Not Reportable 07/31/18 05:03 Platelet Satelliting Not Reportable 07/31/18 05:03 Plt Morphology Comment Not Reportable 07/31/18 05:03 RBC Morphology Not Reportable 07/31/18 05:03 Dimorphic RBCs Not Reportable 07/31/18 05:03 Polychromasia Not Reportable 07/31/18 05:03 Hypochromasia Not Reportable 07/31/18 05:03 Poikilocytosis Not Reportable 07/31/18 05:03 Anisocytosis Few 07/31/18 05:03 Microcytosis Not Reportable 07/31/18 05:03 Macrocytosis Not Reportable 07/31/18 05:03 Spherocytes Not Reportable 07/31/18 05:03 Pappenheimer Bodies Not Reportable 07/31/18 05:03 Sickle Cells Not Reportable 07/31/18 05:03 Target Cells Not Reportable 07/31/18 05:03 Tear Drop Cells Not Reportable 07/31/18 05:03 Ovalocytes Few 07/31/18 05:03 Helmet Cells Not Reportable 07/31/18 05:03 Pool-[place] Bodies Not Reportable 07/31/18 05:03 [place] Rings Not Reportable 07/31/18 05:03 Terry Cells Not Reportable 07/31/18 05:03 Bite Cells Not Reportable 07/31/18 05:03 Crenated Cell Not Reportable 07/31/18 05:03 Elliptocytes Few 07/31/18 05:03 Acanthocytes (Spur) Not Reportable 07/31/18 05:03 Rouleaux Not Reportable 07/31/18 05:03 Hemoglobin C Crystals Not Reportable 07/31/18 05:03 Schistocytes Not Reportable 07/31/18 05:03 Malaria parasites Not Reportable 07/31/18 05:03 Brock Bodies Not Reportable 07/31/18 05:03 Hem Pathologist Commnt No 07/31/18 05:03 PT 16.6 Sec. (12.2-14.9) H 07/24/18 11:08 INR 1.26 (0.87-1.13) H 07/24/18 11:08 APTT 24.9 Sec. (24.2-36.6) 07/24/18 11:08 POC ABG pH 7.483 (7.35-7.45) H 07/31/18 13:39 POC ABG pCO2 33.3 (35-45) L 07/31/18 13:39 POC ABG HCO3 25.0 (22-26 mml/L) 07/31/18 13:39 POC ABG Total CO2 26 (23-27mmol/L) 07/31/18 13:39 POC ABG O2 Sat 83 07/31/18 13:39 POC ABG Base Excess 2 ((-2) - (+3)mmol/L) 07/31/18 13:39 FiO2 21 % 07/31/18 13:39 Sodium 140 mmol/L (137-145) 07/31/18 05:03 Potassium 3.6 mmol/L (3.6-5.0) 07/31/18 05:03 Chloride 105.6 mmol/L (98-107) 07/31/18 05:03 Carbon Dioxide 22 mmol/L (22-30) 07/31/18 05:03 Anion Gap 16 mmol/L 07/31/18 05:03 BUN 5 mg/dL (7-17) L 07/31/18 05:03 Creatinine 0.6 mg/dL (0.7-1.2) L 07/31/18 05:03 Estimated GFR > 60 ml/min 07/31/18 05:03 BUN/Creatinine Ratio 8 % 07/31/18 05:03 Glucose 103 mg/dL (65-100) H 07/31/18 05:03 POC Glucose 99 (70-105) 07/28/18 21:58 Hemoglobin A1c 5.4 % (4-6) 07/24/18 17:12 Calcium 7.9 mg/dL (8.4-10.2) L 07/31/18 05:03 Total Bilirubin 1.30 mg/dL (0.1-1.2) H 07/31/18 05:03 AST 45 units/L (5-40) H 07/31/18 05:03 ALT 27 units/L (7-56) 07/31/18 05:03 Alkaline Phosphatase 99 units/L (35-129) 07/31/18 05:03 Ammonia 75.0 umol/L (25-60) H 07/31/18 08:15 Total Creatine Kinase 88 units/L (30-135) 07/24/18 11:08 CK-MB (CK-2) 3.6 ng/mL (0.0-4.0) 07/24/18 11:08 CK-MB (CK-2) Rel Index 4.0 (0-4) 07/24/18 11:08 Troponin T < 0.010 ng/mL (0.00-0.029) 07/24/18 11:08 Total Protein 5.2 g/dL (6.3-8.2) L 07/31/18 05:03 Albumin 2.8 g/dL (3.9-5) L 07/31/18 05:03 Albumin/Globulin Ratio 1.2 % 07/31/18 05:03 TSH 9.060 mlU/mL (0.270-4.200) H 07/24/18 11:08 Free T4 1.08 ng/dL (0.76-1.46) 07/24/18 11:08 Urine Color Yellow (Yellow) 07/24/18 Unknown Urine Turbidity Clear (Clear) 07/24/18 Unknown Urine pH 5.0 (5.0-7.0) 07/24/18 Unknown Ur Specific [place] 1.024 (1.003-1.030) 07/24/18 Unknown Urine Protein <15 mg/dl mg/dL (Negative) 07/24/18 Unknown Urine Glucose (UA) Neg mg/dL (Negative) 07/24/18 Unknown Urine Ketones Neg mg/dL (Negative) 07/24/18 Unknown Urine Blood Neg (Negative) 07/24/18 Unknown Urine Nitrite Neg (Negative) 07/24/18 Unknown Urine Bilirubin Neg (Negative) 07/24/18 Unknown Urine Urobilinogen < 2.0 mg/dL (<2.0) 07/24/18 Unknown Ur Leukocyte Esterase Neg (Negative) 07/24/18 Unknown Urine WBC (Auto) 1.0 /HPF (0.0-6.0) 07/24/18 Unknown Urine RBC (Auto) 1.0 /HPF (0.0-6.0) 07/24/18 Unknown Hyaline Casts 1 /LPF 07/24/18 Unknown Urine Mucus Few /HPF 07/24/18 Unknown Salicylates < 0.3 mg/dL (2.8-20.0) L 07/24/18 11:08 Urine Opiates Screen Presumptive negative 07/24/18 Unknown Urine Methadone Screen Presumptive negative 07/24/18 Unknown Acetaminophen < 5.0 ug/mL (10.0-30.0) L 07/24/18 11:08 Ur Barbiturates Screen Presumptive negative 07/24/18 Unknown Ur Phencyclidine Scrn Presumptive negative 07/24/18 Unknown Ur Amphetamines Screen Presumptive negative 07/24/18 Unknown U Benzodiazepines Scrn Presumptive negative 07/24/18 Unknown Urine Cocaine Screen Presumptive negative 07/24/18 Unknown U Marijuana (THC) Screen Presumptive negative 07/24/18 Unknown Drugs of Abuse Note Disclamer 07/24/18 Unknown Plasma/Serum Alcohol < 0.01 % (0-0.07) 07/24/18 11:08 Active Medications - Current Medications Current Medications: Generic Name Dose Route Start Last Admin Trade Name Freq PRN Reason Stop Dose Admin Acetaminophen 650 mg 07/24/18 16:40 07/30/18 09:46 Tylenol PO 650 mg Q4H PRN Administration Pain MILD(1-3)/Fever >100.5/PÉREZ Albuterol 2.5 mg 07/30/18 19:01 Proventil IH Q6HRT PRN Shortness Of Breath Albuterol/Ipratropium 1 ampul 07/31/18 08:00 08/01/18 08:29 Duoneb *Not For Prn Use* IH 1 ampul TIDRT HUONG Administration Aspirin 81 mg 07/24/18 17:00 08/01/18 10:37 Baby Aspirin PO 81 mg DAILY HUONG Administration Clopidogrel Bisulfate 75 mg 07/24/18 17:15 08/01/18 10:36 Plavix PO 75 mg DAILY HUONG Administration Folic Acid 1 mg 07/24/18 17:00 08/01/18 10:37 Folvite PO 1 mg QDAY HUONG Administration Furosemide 20 mg 07/24/18 17:00 08/01/18 10:57 Lasix PO Not Given QDAY HUONG Heparin Sodium (Porcine) 5,000 unit 07/30/18 22:00 08/01/18 05:18 Heparin SUB-Q 5,000 unit Q8HR HUONG Administration Hydromorphone HCl 0.25 mg 07/24/18 16:40 07/26/18 05:00 Dilaudid IV 0.25 mg Q3H PRN Administration Pain, Moderate (4-6) Lactulose 20 gm 07/30/18 10:00 08/01/18 10:36 Cephulac PO 20 gm QDAY HUONG Administration Lamotrigine 25 mg 07/24/18 22:00 08/01/18 10:38 Lamictal PO 25 mg BID HUONG Administration Levetiracetam 1,500 mg 07/24/18 22:00 08/01/18 10:37 Keppra PO 1,500 mg BID HUONG Administration Levothyroxine Sodium 100 mcg 07/25/18 06:00 08/01/18 05:17 Synthroid PO 100 mcg DAILY@0600 HUONG Administration Lorazepam 2 mg 07/25/18 00:01 07/31/18 23:36 Ativan IV 2 mg Q1H PRN Administration CIWA-Ar 8-15 Lorazepam 4 mg 07/25/18 00:01 Ativan IV Q1H PRN CIWA-Ar 16-25 Multivitamins 1 each 07/25/18 10:00 08/01/18 10:38 Theragran Tab PO 1 each DAILY HUONG Administration Ondansetron HCl 4 mg 07/24/18 16:40 Zofran IV Q8H PRN Nausea And Vomiting Rifaximin 550 mg 07/27/18 11:00 08/01/18 10:37 Xifaxan PO 550 mg BID HUONG Administration Spironolactone 50 mg 07/30/18 10:00 08/01/18 10:59 Aldactone PO 50 mg QDAY HUONG Administration Thiamine HCl 100 mg 07/24/18 17:00 08/01/18 10:37 Vitamin B-1 PO 100 mg QDAY HUONG Administration Trazodone HCl 50 mg 07/24/18 16:45 07/28/18 00:34 Desyrel PO 50 mg QHS PRN Administration Sleep Nutrition/Malnutrition Assess - Dietary Evaluation Nutrition/Malnutrition Findings: Nutrition Notes Start: 07/30/18 15:57 Freq: Status: Active Protocol: Document 07/30/18 15:57 RM (Rec: 07/30/18 16:00 RM [id number]) Nutrition Notes Need for Assessment generated from: LOS Initial or Follow up Assessment Other Pertinent Diagnosis Alcohol abuse, Alcohol induced dementia,Seizures,Bipolar disorder,Cirrhosis Current Diet Pureed Labs/Tests Reviewed Pertinent Medications Lasix Height 5 ft 4 in Weight 64 kg [place] Body Weight (kg) 54.54 BMI 24.2 Subjective/Other Information Screened for LOS. No family present to facilitate assessment. Recorded PO intake 48% X 3 days. Percent of energy/protein needs met: 56%/72% Burn Absent Trauma Absent #1 Nutrition Diagnosis Inadequate oral intake Etiology dementia As Evidenced by Signs and Symptoms recorded PO intake 48% X 3 days Is patient on ventilator? No Is Patient Ambulatory and/or Out of Bed Yes REE-([facility]-ambulatory/OOB) [ 1547.000 [id number]] Calculation Used for Recommendations [facility] Additional Notes Protein Needs: 51-64g (0.8-1g/ kg) Fluid Needs: 1 ml/kcal Nutrition Intervention Change Diet Order: Contine current Add Supplement/Snack (indicate name/kcal Ensure Enlive 1 daily /protein ) Provides kCal: 350 Provides Protein (gm) 20 Goal #1 Meet at least 75% of calorie and protein needs via PO and ONS intakes Anticipated Discharge Needs: Pureed diet Follow-Up By: 08/02/18 Additional Comments Follow for PO and ONS intakes
--- NOTE | 2018-08-01 15:05 | Progress Note ---
Assessment and Plan Imp: 1. Hepatic encephalopathy 2. Liver cirrhosis, 2/2 EtOH 3. Chronic nicotine dependence, cigarettes 4. Acute respiratory failure, hypoxia; unclear etiology Rec: 1. CXR, V/Q unremarkable; possibilities include parenchymal lung disease not evident on CXR including emphysema, small effusions related to cirrhosis, and portopulmonary HTN; await CT chest w/o contrast and Echo 2. Stop smoking 3. Further plans pending CT chest/Echo 4. Outpatient PFTs would be helpful but I'm not sure she can cooperate with such Plan of care reviewed w/ patient, she understands/agrees Subjective Date of service: 08/01/18 Principal diagnosis: hepatic encephalopathy, pancytopenia Interval history: No events. Sleepy but arousable. In restraints b/c pulling off O2. On 35% VM. No complaints currently. Active Medications Acetaminophen (Tylenol) 650 mg PO Q4H PRN PRN Reason: Pain MILD(1-3)/Fever >100.5/PÉREZ Last Admin: 07/30/18 09:46 Dose: 650 mg Documented by: Albuterol (Proventil) 2.5 mg IH Q6HRT PRN PRN Reason: Shortness Of Breath Albuterol/Ipratropium (Duoneb *Not For Prn Use*) 1 ampul IH TIDRT [facility] Last Admin: 08/01/18 14:22 Dose: 1 ampul Documented by: Aspirin (Baby Aspirin) 81 mg PO DAILY [facility] Last Admin: 08/01/18 10:37 Dose: 81 mg Documented by: Clopidogrel Bisulfate (Plavix) 75 mg PO DAILY [facility] Last Admin: 08/01/18 10:36 Dose: 75 mg Documented by: Folic Acid (Folvite) 1 mg PO QDAY [facility] Last Admin: 08/01/18 10:37 Dose: 1 mg Documented by: Furosemide (Lasix) 20 mg PO QDAY [facility] Last Admin: 08/01/18 10:57 Dose: Not Given Documented by: Heparin Sodium (Porcine) (Heparin) 5,000 unit SUB-Q Q8HR [facility] Last Admin: 08/01/18 05:18 Dose: 5,000 unit Documented by: Hydromorphone HCl (Dilaudid) 0.25 mg IV Q3H PRN PRN Reason: Pain, Moderate (4-6) Last Admin: 07/26/18 05:00 Dose: 0.25 mg Documented by: Lactulose (Cephulac) 20 gm PO QDAY [facility] Last Admin: 08/01/18 10:36 Dose: 20 gm Documented by: Lamotrigine (Lamictal) 25 mg PO BID [facility] Last Admin: 08/01/18 10:38 Dose: 25 mg Documented by: Levetiracetam (Keppra) 1,500 mg PO BID [facility] Last Admin: 08/01/18 10:37 Dose: 1,500 mg Documented by: Levothyroxine Sodium (Synthroid) 100 mcg PO DAILY@0600 [facility] Last Admin: 08/01/18 05:17 Dose: 100 mcg Documented by: Lorazepam (Ativan) 2 mg IV Q1H PRN PRN Reason: CIWA-Fantasma 8-15 Last Admin: 07/31/18 23:36 Dose: 2 mg Documented by: Lorazepam (Ativan) 4 mg IV Q1H PRN PRN Reason: Lucy 16-25 Multivitamins (Theragran Tab) 1 each PO DAILY [facility] Last Admin: 08/01/18 10:38 Dose: 1 each Documented by: Ondansetron HCl (Zofran) 4 mg IV Q8H PRN PRN Reason: Nausea And Vomiting Rifaximin (Xifaxan) 550 mg PO BID [facility] Last Admin: 08/01/18 10:37 Dose: 550 mg Documented by: Spironolactone (Aldactone) 50 mg PO QDAY [facility] Last Admin: 08/01/18 10:59 Dose: 50 mg Documented by: Thiamine HCl (Vitamin B-1) 100 mg PO QDAY [facility] Last Admin: 08/01/18 10:37 Dose: 100 mg Documented by: Trazodone HCl (Desyrel) 50 mg PO QHS PRN PRN Reason: Sleep Last Admin: 07/28/18 00:34 Dose: 50 mg Documented by: Objective Vital Signs - 12hr 08/01/18 08/01/18 08/01/18 03:33 03:37 05:32 Temperature Pulse Rate Pulse Rate [ Bilateral Throughout] Respiratory 18 Rate Respiratory Rate [Bilateral Throughout] Blood Pressure 91/51 95/53 Blood Pressure 92/51 [Right] O2 Sat by Pulse Oximetry 08/01/18 08/01/18 08/01/18 08:29 08:39 10:59 Temperature Pulse Rate 79 Pulse Rate [ 77 75 Bilateral Throughout] Respiratory Rate Respiratory 20 20 Rate [Bilateral Throughout] Blood Pressure 97/49 Blood Pressure [Right] O2 Sat by Pulse 95 Oximetry 08/01/18 11:31 Temperature 98.0 F Pulse Rate 75 Pulse Rate [ Bilateral Throughout] Respiratory 20 Rate Respiratory Rate [Bilateral Throughout] Blood Pressure 93/46 Blood Pressure [Right] O2 Sat by Pulse 96 Oximetry Constitutional: no acute distress, asleep (arousable) Eyes: non-icteric ENT: oropharynx moist Neck: supple Effort: normal Ascultation: Bilateral: diminished breath sounds Cardiovascular: regular rate and rhythm (no mrg) Gastrointestinal: normoactive bowel sounds, soft, non-tender, non-distended Integumentary: normal Extremities: no cyanosis, no edema, pink and warm Neurologic: non-focal exam, pupils equal and round, CN II-XII normal, other (confused) Psychiatric: mood appropriate, affect normal CBC and BMP: 07/31/18 05:03 07/31/18 05:03 ABG, PT/INR, D-dimer: ABG POC ABG pH 7.483 (7.35-7.45) H 07/31/18 13:39 POC ABG pCO2 33.3 (35-45) L 07/31/18 13:39 POC ABG HCO3 25.0 (22-26 mml/L) 07/31/18 13:39 POC ABG Total CO2 26 (23-27mmol/L) 07/31/18 13:39 POC ABG O2 Sat 83 07/31/18 13:39 PT/INR, D-dimer PT 16.6 Sec. (12.2-14.9) H 07/24/18 11:08 INR 1.26 (0.87-1.13) H 07/24/18 11:08 Abnormal lab findings: Abnormal Labs 07/24/18 07/24/18 07/24/18 11:08 11:08 11:08 WBC 3.6 L Hct RDW 17.5 H Plt Count 132 L Seg Neuts % (Manual) Lymphocytes % (Manual) Monocytes % (Manual) 9.0 H Nucleated RBC % 1.0 H Lymphocytes # (Manual) 0.8 L PT 16.6 H INR 1.26 H POC ABG pH POC ABG pCO2 Sodium Potassium Chloride Carbon Dioxide 20 L BUN Creatinine Glucose 141 H POC Glucose Calcium Total Bilirubin 1.50 H AST Ammonia Total Protein Albumin 3.7 L TSH Salicylates Acetaminophen 07/24/18 07/24/18 07/24/18 11:08 11:08 11:08 WBC Hct RDW Plt Count Seg Neuts % (Manual) Lymphocytes % (Manual) Monocytes % (Manual) Nucleated RBC % Lymphocytes # (Manual) PT INR POC ABG pH POC ABG pCO2 Sodium Potassium Chloride Carbon Dioxide BUN Creatinine Glucose POC Glucose Calcium Total Bilirubin AST Ammonia 139.0 H Total Protein Albumin TSH Salicylates < 0.3 L Acetaminophen < 5.0 L 07/24/18 07/24/18 07/25/18 11:08 12:08 05:05 WBC Hct RDW Plt Count Seg Neuts % (Manual) Lymphocytes % (Manual) Monocytes % (Manual) Nucleated RBC % Lymphocytes # (Manual) PT INR POC ABG pH POC ABG pCO2 Sodium Potassium Chloride Carbon Dioxide 21 L BUN Creatinine Glucose POC Glucose 114 H Calcium Total Bilirubin 1.80 H AST Ammonia Total Protein Albumin TSH 9.060 H Salicylates Acetaminophen 07/25/18 07/25/18 07/26/18 05:06 16:52 05:23 WBC Hct 43.3 H RDW 17.6 H 17.5 H Plt Count Seg Neuts % (Manual) 77.0 H Lymphocytes % (Manual) Monocytes % (Manual) Nucleated RBC % Lymphocytes # (Manual) 1.0 L PT INR POC ABG pH POC ABG pCO2 Sodium Potassium Chloride Carbon Dioxide BUN Creatinine Glucose POC Glucose Calcium Total Bilirubin AST Ammonia 74.0 H Total Protein Albumin TSH Salicylates Acetaminophen 07/26/18 07/26/18 07/27/18 05:23 17:09 07:53 WBC Hct RDW Plt Count Seg Neuts % (Manual) Lymphocytes % (Manual) Monocytes % (Manual) Nucleated RBC % Lymphocytes # (Manual) PT INR POC ABG pH POC ABG pCO2 Sodium 150 H Potassium 3.5 L Chloride 114.5 H Carbon Dioxide 21 L 21 L BUN Creatinine 0.5 L Glucose 107 H 118 H POC Glucose Calcium Total Bilirubin 1.40 H AST Ammonia 66.0 H Total Protein Albumin 3.8 L TSH Salicylates Acetaminophen 07/27/18 07/29/18 07/29/18 07:57 05:20 05:20 WBC Hct RDW 17.0 H 17.6 H Plt Count 131 L 135 L Seg Neuts % (Manual) Lymphocytes % (Manual) Monocytes % (Manual) 15.0 H Nucleated RBC % Lymphocytes # (Manual) PT INR POC ABG pH POC ABG pCO2 Sodium 134 L Potassium 3.1 L Chloride Carbon Dioxide 21 L BUN 3 L Creatinine 0.5 L Glucose 115 H POC Glucose Calcium 8.3 L Total Bilirubin 1.50 H AST 52 H Ammonia Total Protein 5.7 L Albumin 3.3 L TSH Salicylates Acetaminophen 07/30/18 07/30/18 07/31/18 05:43 05:43 05:03 WBC 3.5 L Hct RDW 17.8 H 17.4 H Plt Count 116 L 103 L Seg Neuts % (Manual) Lymphocytes % (Manual) 10.0 L Monocytes % (Manual) 12.0 H 18.0 H Nucleated RBC % Lymphocytes # (Manual) 0.8 L 0.4 L PT INR POC ABG pH POC ABG pCO2 Sodium Potassium Chloride Carbon Dioxide BUN 3 L Creatinine 0.6 L Glucose 112 H POC Glucose Calcium 8.0 L Total Bilirubin 1.50 H AST 47 H Ammonia Total Protein 5.6 L Albumin 3.1 L TSH Salicylates Acetaminophen 07/31/18 07/31/18 07/31/18 05:03 08:15 13:39 WBC Hct RDW Plt Count Seg Neuts % (Manual) Lymphocytes % (Manual) Monocytes % (Manual) Nucleated RBC % Lymphocytes # (Manual) PT INR POC ABG pH 7.483 H POC ABG pCO2 33.3 L Sodium Potassium Chloride Carbon Dioxide BUN 5 L Creatinine 0.6 L Glucose 103 H POC Glucose Calcium 7.9 L Total Bilirubin 1.30 H AST 45 H Ammonia 75.0 H Total Protein 5.2 L Albumin 2.8 L TSH Salicylates Acetaminophen Chest x-ray: report reviewed, image reviewed
--- NOTE | 2018-08-01 21:38 | Cat Scan Report ---
PROCEDURE: CT chest without contrast. TECHNIQUE: Computerized axial tomography of the chest was performed without contrast material. This study is performed without intravenous contrast and the sensitivity for pathology, including neoplasm s, adenopathy, abscess, pulmonary embolism and aortic dissection, is reduced. CT DOSE LENGTH PRODUCT: 812.23 mGycm HISTORY: Hypoxia, unclear origin. COMPARISONS: CT angiogram chest 09/04/2015. Dictation not available. FINDINGS: The trachea and central bronchi appear normal. The right lung is clear. There is mild subsegmental at electasis in the dependent portion of the left lower lobe. There is a small left pleural effusion. Th e thoracic aorta has a normal caliber. There is atherosclerotic calcification scattered in the thorac ic aorta. There is no mediastinal adenopathy. The heart size is normal. The adrenal glands are not en larged. The margins of the liver are irregular suggesting cirrhosis. The thoracic skeleton appears in tact. IMPRESSION: Very small left pleural effusion. Probable liver cirrhosis. This document is electronically signed by Trevon James MD., August 01 2018 09:36:35 PM ET
[2018-08-02] MEDS: SYNTHROID PO SCH (05:59)
[2018-08-02] MEDS: HEPARIN SUB-Q SCH ×3 (06:00→22:39)
[2018-08-02 06:26] LABS: Hematocrit 32.6 % (30.3-42.9); Hemoglobin 10.9 gm/dl (10.1-14.3); Mean Corpuscular HGB Conc 34 % (30-34); Mean Corpuscular Volume 88 fl (79-97); Platelet Count 112 K/mm3 (140-440); Red Blood Count 3.71 M/mm3 (3.65-5.03); Red Cell Distribution Width 18.1 % (13.2-15.2)
[2018-08-02 06:56] LABS: Alanine Aminotransferase 23 units/L (7-56); Albumin 3.1 g/dL (3.9-5); BUN/Creatinine Ratio 20; Blood Urea Nitrogen 10 mg/dL (7-17); Calcium 8.6 mg/dL (8.4-10.2); Hemolysis Index 7
[2018-08-02] MEDS: DUONEB *Not for PRN Use IH SCH ×4 (08:16→19:06)
[2018-08-02] MEDS: ALDACTONE PO SCH (10:43)
[2018-08-02] MEDS: PLAVIX PO SCH (10:44)
[2018-08-02] MEDS: THERAGRAN Tab PO SCH (10:44)
[2018-08-02] MEDS: BABY ASPIRIN PO SCH (10:44)
[2018-08-02] MEDS: KEPPRA PO SCH ×2 (10:44→22:39)
[2018-08-02] MEDS: LASIX PO SCH (10:44)
[2018-08-02] MEDS: FOLVITE PO SCH (10:44)
[2018-08-02] MEDS: LaMICtal PO SCH ×2 (10:44→22:39)
[2018-08-02] MEDS: CEPHULAC PO SCH (10:44)
[2018-08-02] MEDS: XIFAXAN PO SCH ×2 (10:44→22:39)
[2018-08-02] MEDS: VITAMIN B-1 PO SCH (10:44)
--- NOTE | 2018-08-02 11:35 | Progress Note ---
Assessment and Plan Imp: 1. Hepatic encephalopathy 2. Liver cirrhosis, 2/2 EtOH 3. Chronic nicotine dependence, cigarettes 4. Acute respiratory failure, hypoxia; unclear etiology Plan 1. No evidence of COPD on CT. Unable to get contrast secondary to IV access so not able to assess for AVM's. Await echo, may have pulmonary hypertension and if so, most likely related to underlying liver disease 2. Smoking cessation. 3. Follow up in office with PFT's if possible 4. Consider more lasix therapy if BP will allow. Subjective Date of service: 08/02/18 Principal diagnosis: hepatic encephalopathy, pancytopenia Interval history: No acute events. had CT chest done. Does not appear to have evidence of parenchymal lung disease but there is a motion artifact. There does appear to be volume loss on the left. Objective Vital Signs - 12hr 08/02/18 08/02/18 08/02/18 00:00 04:48 08:16 Temperature 97.5 F L Pulse Rate 87 Pulse Rate [ 84 Anterior Bilateral Throughout] Pulse Rate [ 79 From Monitor] Respiratory 16 Rate Respiratory 20 Rate [Anterior Bilateral Throughout] Blood Pressure 90/54 O2 Sat by Pulse 95 90 90 Oximetry 08/02/18 08/02/18 08/02/18 08:33 10:42 11:29 Temperature 98.3 F Pulse Rate 83 Pulse Rate [ 86 Anterior Bilateral Throughout] Pulse Rate [ From Monitor] Respiratory 19 Rate Respiratory 20 Rate [Anterior Bilateral Throughout] Blood Pressure 89/45 90/44 O2 Sat by Pulse 90 Oximetry Constitutional: no acute distress, asleep (arousable) Eyes: non-icteric ENT: oropharynx moist Neck: supple Effort: normal Ascultation: Bilateral: diminished breath sounds Cardiovascular: regular rate and rhythm (no mrg) Gastrointestinal: normoactive bowel sounds, soft, non-tender, non-distended Integumentary: normal Extremities: no cyanosis, no edema, pink and warm Neurologic: non-focal exam, pupils equal and round, CN II-XII normal, other (confused) Psychiatric: mood appropriate, affect normal CBC and BMP: 08/02/18 05:04 08/02/18 05:04 ABG, PT/INR, D-dimer: ABG POC ABG pH 7.483 (7.35-7.45) H 07/31/18 13:39 POC ABG pCO2 33.3 (35-45) L 07/31/18 13:39 POC ABG HCO3 25.0 (22-26 mml/L) 07/31/18 13:39 POC ABG Total CO2 26 (23-27mmol/L) 07/31/18 13:39 POC ABG O2 Sat 83 07/31/18 13:39 PT/INR, D-dimer PT 16.6 Sec. (12.2-14.9) H 07/24/18 11:08 INR 1.26 (0.87-1.13) H 07/24/18 11:08 Abnormal lab findings: Abnormal Labs 07/24/18 07/24/18 07/24/18 11:08 11:08 11:08 WBC 3.6 L Hct RDW 17.5 H Plt Count 132 L Seg Neuts % (Manual) Lymphocytes % (Manual) Monocytes % (Manual) 9.0 H Nucleated RBC % 1.0 H Lymphocytes # (Manual) 0.8 L PT 16.6 H INR 1.26 H POC ABG pH POC ABG pCO2 Sodium Potassium Chloride Carbon Dioxide 20 L BUN Creatinine Glucose 141 H POC Glucose Calcium Total Bilirubin 1.50 H AST Ammonia Total Protein Albumin 3.7 L TSH Salicylates Acetaminophen 07/24/18 07/24/18 07/24/18 11:08 11:08 11:08 WBC Hct RDW Plt Count Seg Neuts % (Manual) Lymphocytes % (Manual) Monocytes % (Manual) Nucleated RBC % Lymphocytes # (Manual) PT INR POC ABG pH POC ABG pCO2 Sodium Potassium Chloride Carbon Dioxide BUN Creatinine Glucose POC Glucose Calcium Total Bilirubin AST Ammonia 139.0 H Total Protein Albumin TSH Salicylates < 0.3 L Acetaminophen < 5.0 L 07/24/18 07/24/18 07/25/18 11:08 12:08 05:05 WBC Hct RDW Plt Count Seg Neuts % (Manual) Lymphocytes % (Manual) Monocytes % (Manual) Nucleated RBC % Lymphocytes # (Manual) PT INR POC ABG pH POC ABG pCO2 Sodium Potassium Chloride Carbon Dioxide 21 L BUN Creatinine Glucose POC Glucose 114 H Calcium Total Bilirubin 1.80 H AST Ammonia Total Protein Albumin TSH 9.060 H Salicylates Acetaminophen 07/25/18 07/25/18 07/26/18 05:06 16:52 05:23 WBC Hct 43.3 H RDW 17.6 H 17.5 H Plt Count Seg Neuts % (Manual) 77.0 H Lymphocytes % (Manual) Monocytes % (Manual) Nucleated RBC % Lymphocytes # (Manual) 1.0 L PT INR POC ABG pH POC ABG pCO2 Sodium Potassium Chloride Carbon Dioxide BUN Creatinine Glucose POC Glucose Calcium Total Bilirubin AST Ammonia 74.0 H Total Protein Albumin TSH Salicylates Acetaminophen 07/26/18 07/26/18 07/27/18 05:23 17:09 07:53 WBC Hct RDW Plt Count Seg Neuts % (Manual) Lymphocytes % (Manual) Monocytes % (Manual) Nucleated RBC % Lymphocytes # (Manual) PT INR POC ABG pH POC ABG pCO2 Sodium 150 H Potassium 3.5 L Chloride 114.5 H Carbon Dioxide 21 L 21 L BUN Creatinine 0.5 L Glucose 107 H 118 H POC Glucose Calcium Total Bilirubin 1.40 H AST Ammonia 66.0 H Total Protein Albumin 3.8 L TSH Salicylates Acetaminophen 07/27/18 07/29/18 07/29/18 07:57 05:20 05:20 WBC Hct RDW 17.0 H 17.6 H Plt Count 131 L 135 L Seg Neuts % (Manual) Lymphocytes % (Manual) Monocytes % (Manual) 15.0 H Nucleated RBC % Lymphocytes # (Manual) PT INR POC ABG pH POC ABG pCO2 Sodium 134 L Potassium 3.1 L Chloride Carbon Dioxide 21 L BUN 3 L Creatinine 0.5 L Glucose 115 H POC Glucose Calcium 8.3 L Total Bilirubin 1.50 H AST 52 H Ammonia Total Protein 5.7 L Albumin 3.3 L TSH Salicylates Acetaminophen 07/30/18 07/30/18 07/31/18 05:43 05:43 05:03 WBC 3.5 L Hct RDW 17.8 H 17.4 H Plt Count 116 L 103 L Seg Neuts % (Manual) Lymphocytes % (Manual) 10.0 L Monocytes % (Manual) 12.0 H 18.0 H Nucleated RBC % Lymphocytes # (Manual) 0.8 L 0.4 L PT INR POC ABG pH POC ABG pCO2 Sodium Potassium Chloride Carbon Dioxide BUN 3 L Creatinine 0.6 L Glucose 112 H POC Glucose Calcium 8.0 L Total Bilirubin 1.50 H AST 47 H Ammonia Total Protein 5.6 L Albumin 3.1 L TSH Salicylates Acetaminophen 07/31/18 07/31/18 07/31/18 05:03 08:15 13:39 WBC Hct RDW Plt Count Seg Neuts % (Manual) Lymphocytes % (Manual) Monocytes % (Manual) Nucleated RBC % Lymphocytes # (Manual) PT INR POC ABG pH 7.483 H POC ABG pCO2 33.3 L Sodium Potassium Chloride Carbon Dioxide BUN 5 L Creatinine 0.6 L Glucose 103 H POC Glucose Calcium 7.9 L Total Bilirubin 1.30 H AST 45 H Ammonia 75.0 H Total Protein 5.2 L Albumin 2.8 L TSH Salicylates Acetaminophen 08/02/18 08/02/18 05:04 05:04 WBC 3.5 L Hct RDW 18.1 H Plt Count 112 L Seg Neuts % (Manual) Lymphocytes % (Manual) Monocytes % (Manual) Nucleated RBC % Lymphocytes # (Manual) PT INR POC ABG pH POC ABG pCO2 Sodium Potassium Chloride Carbon Dioxide BUN Creatinine 0.5 L Glucose POC Glucose Calcium Total Bilirubin AST Ammonia Total Protein 5.6 L Albumin 3.1 L TSH Salicylates Acetaminophen
--- NOTE | 2018-08-02 14:01 | Progress Note ---
Assessment and Plan Assessment and plan: Patient is a 62 yo woman with a history of alcohol abuse with dementia, Brain aneuyrsm x 2, CVA, hypertension, GERD, Arthritis, Seizures disorder and bipolar disorder with a history of AMS. CXR: No acute pulmonary abnormality CT chest: Very small left pleural effusion. Probable liver cirrhosis Acute Hypoxic Respiratory failure Hepatic Encephalopathy Thrombocytopenia-secondary to etoh Sizure Disorder Hypernatremia Hypokalemia Cirrhosis Secondary to ETOH abuse [facility]. Chronic Tobacco use disorder Debility due to Senility, Plan -Continue nebs -We'll start patient on low-dose midodrine to obtain better BP control so that we can appropriately diuresis the patient -ct chest was unobtainable due to access. V/Q scan done and was low probability -ABG-Done, Hypoxia, PO2 verbal read- 59 -Continue Facemask, IV fluids discontinued -Lasix held today, pt noted to have hypotension -pulmonary input noted. ECHO ordered. CT chest shows further small left pleural effusion likely related to liver cirrhosis -Continue Lactulose with added xifamin - continue antiepileptic meds - pt requring assistance with ambulation -PT eval and tx. -dvt/gi PROPHY --Disposition: D/w [facility]. [facility] staff will be ready to take her back once clinically improved. They state ability to take care of pt's nursing need declined SNF. History Interval history: Patient seen and examined, still on oxygen, mental status waxes and wanes, still hypotension. No other new complaints. Hospitalist Physical - Physical exam Narrative exam: Gen: chronic disable NAD, Awake, Alert, Orientated x [address], but often starts laughing "what can I say about today" HEENT: NCAT, EOMI, PERRL, OP Clear Neck: supple, no adenopathy, no thyromegaly, no JVD CVS/Heart: Regular bradycardia, normal S1S2, pulses present bilaterally Chest/Lungs: CTA B, Symmetrical chest expansion, good air entry bilaterally GI/Abdomen: soft, NTND, good bowel sounds, no guarding or rebound /Bladder: no suprapubic tenderness, no CVA or paraspinal tenderness Extermity/Skin: no c/c/e, no obvious rash MSK: FROM x 4 Neuro: CN 2-12 grossly intact, no new focal deficits Psych: calm - Constitutional Vitals: Temp Pulse Resp BP Pulse Ox 98.3 F 83 19 90/44 90 08/02/18 11:29 08/02/18 11:29 08/02/18 11:29 08/02/18 11:29 08/02/18 11:29 General appearance: Present: no acute distress Results - Labs CBC & Chem 7: 08/02/18 05:04 08/02/18 05:04 Labs: Laboratory Last Values WBC 3.5 K/mm3 (4.5-11.0) L 08/02/18 05:04 RBC 3.71 M/mm3 (3.65-5.03) 08/02/18 05:04 Hgb 10.9 gm/dl (10.1-14.3) 08/02/18 05:04 Hct 32.6 % (30.3-42.9) 08/02/18 05:04 MCV 88 fl (79-97) 08/02/18 05:04 MCH 30 pg (28-32) 08/02/18 05:04 MCHC 34 % (30-34) 08/02/18 05:04 RDW 18.1 % (13.2-15.2) H 08/02/18 05:04 Plt Count 112 K/mm3 (140-440) L 08/02/18 05:04 [place] % (Auto) [employer] Mortiser Operator 07/31/18 05:03 Add Manual Diff Complete 07/31/18 05:03 Total Counted 100 07/31/18 05:03 Seg Neuts % (Manual) 64.0 % (40.0-70.0) 07/31/18 05:03 Band Neutrophils % 5.0 % 07/31/18 05:03 Lymphocytes % (Manual) 10.0 % (13.4-35.0) L 07/31/18 05:03 Reactive Lymphs % (Man) 0 % 07/31/18 05:03 Monocytes % (Manual) 18.0 % (0.0-7.3) H 07/31/18 05:03 Eosinophils % (Manual) 3.0 % (0.0-4.3) 07/31/18 05:03 Basophils % (Manual) 0 % (0.0-1.8) 07/31/18 05:03 Metamyelocytes % 0 % 07/31/18 05:03 Myelocytes % 0 % 07/31/18 05:03 Promyelocytes % 0 % 07/31/18 05:03 Blast Cells % 0 % 07/31/18 05:03 Nucleated RBC % Not Reportable 07/31/18 05:03 Seg Neutrophils # Man 2.2 K/mm3 (1.8-7.7) 07/31/18 05:03 Band Neutrophils # 0.2 K/mm3 07/31/18 05:03 Lymphocytes # (Manual) 0.4 K/mm3 (1.2-5.4) L 07/31/18 05:03 Abs React Lymphs (Man) 0.0 K/mm3 07/31/18 05:03 Monocytes # (Manual) 0.6 K/mm3 (0.0-0.8) 07/31/18 05:03 Eosinophils # (Manual) 0.1 K/mm3 (0.0-0.4) 07/31/18 05:03 Basophils # (Manual) 0.0 K/mm3 (0.0-0.1) 07/31/18 05:03 Metamyelocytes # 0.0 K/mm3 07/31/18 05:03 Myelocytes # 0.0 K/mm3 07/31/18 05:03 Promyelocytes # 0.0 K/mm3 07/31/18 05:03 Blast Cells # 0.0 K/mm3 07/31/18 05:03 WBC Morphology Not Reportable 07/31/18 05:03 Hypersegmented Neuts Not Reportable 07/31/18 05:03 Hyposegmented Neuts Not Reportable 07/31/18 05:03 Hypogranular Neuts Not Reportable 07/31/18 05:03 Smudge Cells Not Reportable 07/31/18 05:03 Toxic Granulation Not Reportable 07/31/18 05:03 Toxic Vacuolation Not Reportable 07/31/18 05:03 Dohle Bodies Not Reportable 07/31/18 05:03 Pelger-Huet Anomaly Not Reportable 07/31/18 05:03 Lamine Rods Not Reportable 07/31/18 05:03 Platelet Estimate Consistent w auto 07/31/18 05:03 Clumped Platelets Not Reportable 07/31/18 05:03 Plt Clumps, EDTA Not Reportable 07/31/18 05:03 Large Platelets Not Reportable 07/31/18 05:03 Giant Platelets Not Reportable 07/31/18 05:03 Platelet Satelliting Not Reportable 07/31/18 05:03 Plt Morphology Comment Not Reportable 07/31/18 05:03 RBC Morphology Not Reportable 07/31/18 05:03 Dimorphic RBCs Not Reportable 07/31/18 05:03 Polychromasia Not Reportable 07/31/18 05:03 Hypochromasia Not Reportable 07/31/18 05:03 Poikilocytosis Not Reportable 07/31/18 05:03 Anisocytosis Few 07/31/18 05:03 Microcytosis Not Reportable 07/31/18 05:03 Macrocytosis Not Reportable 07/31/18 05:03 Spherocytes Not Reportable 07/31/18 05:03 Pappenheimer Bodies Not Reportable 07/31/18 05:03 Sickle Cells Not Reportable 07/31/18 05:03 Target Cells Not Reportable 07/31/18 05:03 Tear Drop Cells Not Reportable 07/31/18 05:03 Ovalocytes Few 07/31/18 05:03 Helmet Cells Not Reportable 07/31/18 05:03 Pool-Twain Bodies Not Reportable 07/31/18 05:03 [place] Rings Not Reportable 07/31/18 05:03 [place] Cells Not Reportable 07/31/18 05:03 Bite Cells Not Reportable 07/31/18 05:03 Crenated Cell Not Reportable 07/31/18 05:03 Elliptocytes Few 07/31/18 05:03 Acanthocytes (Spur) Not Reportable 07/31/18 05:03 Rouleaux Not Reportable 07/31/18 05:03 Hemoglobin C Crystals Not Reportable 07/31/18 05:03 Schistocytes Not Reportable 07/31/18 05:03 Malaria parasites Not Reportable 07/31/18 05:03 Brock Bodies Not Reportable 07/31/18 05:03 Hem Pathologist Commnt No 07/31/18 05:03 PT 16.6 Sec. (12.2-14.9) H 07/24/18 11:08 INR 1.26 (0.87-1.13) H 07/24/18 11:08 APTT 24.9 Sec. (24.2-36.6) 07/24/18 11:08 POC ABG pH 7.483 (7.35-7.45) H 07/31/18 13:39 POC ABG pCO2 33.3 (35-45) L 07/31/18 13:39 POC ABG HCO3 25.0 (22-26 mml/L) 07/31/18 13:39 POC ABG Total CO2 26 (23-27mmol/L) 07/31/18 13:39 POC ABG O2 Sat 83 07/31/18 13:39 POC ABG Base Excess 2 ((-2) - (+3)mmol/L) 07/31/18 13:39 FiO2 21 % 07/31/18 13:39 Sodium 138 mmol/L (137-145) 08/02/18 05:04 Potassium 4.1 mmol/L (3.6-5.0) 08/02/18 05:04 Chloride 102.7 mmol/L (98-107) 08/02/18 05:04 Carbon Dioxide 27 mmol/L (22-30) 08/02/18 05:04 Anion Gap 12 mmol/L 08/02/18 05:04 BUN 10 mg/dL (7-17) 08/02/18 05:04 Creatinine 0.5 mg/dL (0.7-1.2) L 08/02/18 05:04 Estimated GFR > 60 ml/min 08/02/18 05:04 BUN/Creatinine Ratio 20 % 08/02/18 05:04 Glucose 96 mg/dL (65-100) 08/02/18 05:04 POC Glucose 99 (70-105) 07/28/18 21:58 Hemoglobin A1c 5.4 % (4-6) 07/24/18 17:12 Calcium 8.6 mg/dL (8.4-10.2) 08/02/18 05:04 Total Bilirubin 1.00 mg/dL (0.1-1.2) 08/02/18 05:04 AST 38 units/L (5-40) 08/02/18 05:04 ALT 23 units/L (7-56) 08/02/18 05:04 Alkaline Phosphatase 106 units/L (35-129) 08/02/18 05:04 Ammonia 75.0 umol/L (25-60) H 07/31/18 08:15 Total Creatine Kinase 88 units/L (30-135) 07/24/18 11:08 CK-MB (CK-2) 3.6 ng/mL (0.0-4.0) 07/24/18 11:08 CK-MB (CK-2) Rel Index 4.0 (0-4) 07/24/18 11:08 Troponin T < 0.010 ng/mL (0.00-0.029) 07/24/18 11:08 Total Protein 5.6 g/dL (6.3-8.2) L 08/02/18 05:04 Albumin 3.1 g/dL (3.9-5) L 08/02/18 05:04 Albumin/Globulin Ratio 1.2 % 08/02/18 05:04 TSH 9.060 mlU/mL (0.270-4.200) H 07/24/18 11:08 Free T4 1.08 ng/dL (0.76-1.46) 07/24/18 11:08 Urine Color Yellow (Yellow) 07/24/18 Unknown Urine Turbidity Clear (Clear) 07/24/18 Unknown Urine pH 5.0 (5.0-7.0) 07/24/18 Unknown Ur Specific [place] 1.024 (1.003-1.030) 07/24/18 Unknown Urine Protein <15 mg/dl mg/dL (Negative) 07/24/18 Unknown Urine Glucose (UA) Neg mg/dL (Negative) 07/24/18 Unknown Urine Ketones Neg mg/dL (Negative) 07/24/18 Unknown Urine Blood Neg (Negative) 07/24/18 Unknown Urine Nitrite Neg (Negative) 07/24/18 Unknown Urine Bilirubin Neg (Negative) 07/24/18 Unknown Urine Urobilinogen < 2.0 mg/dL (<2.0) 07/24/18 Unknown Ur Leukocyte Esterase Neg (Negative) 07/24/18 Unknown Urine WBC (Auto) 1.0 /HPF (0.0-6.0) 07/24/18 Unknown Urine RBC (Auto) 1.0 /HPF (0.0-6.0) 07/24/18 Unknown Hyaline Casts 1 /LPF 07/24/18 Unknown Urine Mucus Few /HPF 07/24/18 Unknown Salicylates < 0.3 mg/dL (2.8-20.0) L 07/24/18 11:08 Urine Opiates Screen Presumptive negative 07/24/18 Unknown Urine Methadone Screen Presumptive negative 07/24/18 Unknown Acetaminophen < 5.0 ug/mL (10.0-30.0) L 07/24/18 11:08 Ur Barbiturates Screen Presumptive negative 07/24/18 Unknown Ur Phencyclidine Scrn Presumptive negative 07/24/18 Unknown Ur Amphetamines Screen Presumptive negative 07/24/18 Unknown U Benzodiazepines Scrn Presumptive negative 07/24/18 Unknown Urine Cocaine Screen Presumptive negative 07/24/18 Unknown U Marijuana (THC) Screen Presumptive negative 07/24/18 Unknown Drugs of Abuse Note Disclamer 07/24/18 Unknown Plasma/Serum Alcohol < 0.01 % (0-0.07) 07/24/18 11:08 Active Medications - Current Medications Current Medications: Generic Name Dose Route Start Last Admin Trade Name Freq PRN Reason Stop Dose Admin Acetaminophen 650 mg 07/24/18 16:40 07/30/18 09:46 Tylenol PO 650 mg Q4H PRN Administration Pain MILD(1-3)/Fever >100.5/PÉREZ Albuterol 2.5 mg 07/30/18 19:01 Proventil IH Q6HRT PRN Shortness Of Breath Albuterol/Ipratropium 1 ampul 07/31/18 08:00 08/02/18 08:16 Duoneb *Not For Prn Use* IH 1 ampul TIDRT HUONG Administration Aspirin 81 mg 07/24/18 17:00 08/02/18 10:44 Baby Aspirin PO 81 mg DAILY HUONG Administration Clopidogrel Bisulfate 75 mg 07/24/18 17:15 08/02/18 10:44 Plavix PO 75 mg DAILY HUONG Administration Folic Acid 1 mg 07/24/18 17:00 08/02/18 10:44 Folvite PO 1 mg QDAY HUONG Administration Furosemide 20 mg 07/24/18 17:00 08/02/18 10:44 Lasix PO Not Given QDAY [facility] Heparin Sodium (Porcine) 5,000 unit 07/30/18 22:00 08/02/18 06:00 Heparin SUB-Q 5,000 unit Q8HR HUONG Administration Hydromorphone HCl 0.25 mg 07/24/18 16:40 07/26/18 05:00 Dilaudid IV 0.25 mg Q3H PRN Administration Pain, Moderate (4-6) Lactulose 20 gm 07/30/18 10:00 08/02/18 10:44 Cephulac PO 20 gm QDAY [facility] Administration Lamotrigine 25 mg 07/24/18 22:00 08/02/18 10:44 Lamictal PO 25 mg BID HUONG Administration Levetiracetam 1,500 mg 07/24/18 22:00 08/02/18 10:44 Keppra PO 1,500 mg BID HUONG Administration Levothyroxine Sodium 100 mcg 07/25/18 06:00 08/02/18 05:59 Synthroid PO 100 mcg DAILY@0600 [facility] Administration Lorazepam 2 mg 07/25/18 00:01 07/31/18 23:36 Ativan IV 2 mg Q1H PRN Administration CIWA-Ar 8-15 Lorazepam 4 mg 07/25/18 00:01 Ativan IV Q1H PRN CIWA-Ar 16-25 Midodrine 2.5 mg 08/02/18 16:00 Proamatine PO TID@0800,1200,1600 [facility] Multivitamins 1 each 07/25/18 10:00 08/02/18 10:44 Theragran Tab PO 1 each DAILY [facility] Administration Ondansetron HCl 4 mg 07/24/18 16:40 Zofran IV Q8H PRN Nausea And Vomiting Rifaximin 550 mg 07/27/18 11:00 08/02/18 10:44 Xifaxan PO 550 mg BID [facility] Administration Spironolactone 50 mg 07/30/18 10:00 08/02/18 10:43 Aldactone PO Not Given QDAY [facility] Thiamine HCl 100 mg 07/24/18 17:00 08/02/18 10:44 Vitamin B-1 PO 100 mg QDAY [facility] Administration Trazodone HCl 50 mg 07/24/18 16:45 07/28/18 00:34 Desyrel PO 50 mg QHS PRN Administration Sleep Nutrition/Malnutrition Assess - Dietary Evaluation Nutrition/Malnutrition Findings: Nutrition Notes Start: 07/30/18 15:57 Freq: Status: Active Protocol: Document 08/02/18 13:41 [place] (Rec: 08/02/18 13:42 [place] [facility]-[id number]) Nutrition Notes Current Diet Pureed Labs/Tests Na 135 K+ 4.1 Ca 8.6 Alb 3.1 hgba1c 5.4 Pertinent Medications folic acid MVI THIAMIN synthroid lactulose
[2018-08-02] MEDS: TYLENOL PO PRN ×2 (15:46→23:30)
[2018-08-02] MEDS: PROAMATINE PO SCH (15:58)
[2018-08-02] MEDS: DESYREL PO PRN (23:21)
[2018-08-03] MEDS: HEPARIN SUB-Q SCH ×3 (05:53→21:23)
[2018-08-03] MEDS: SYNTHROID PO SCH (05:56)
[2018-08-03] MEDS: DUONEB *Not for PRN Use IH SCH ×3 (07:52→20:10)
[2018-08-03] MEDS: PROAMATINE PO SCH ×2 (09:47→13:43)
[2018-08-03] MEDS: CEPHULAC PO SCH (09:47)
[2018-08-03] MEDS: XIFAXAN PO SCH ×2 (09:47→21:23)
[2018-08-03] MEDS: BABY ASPIRIN PO SCH (09:48)
[2018-08-03] MEDS: FOLVITE PO SCH (09:48)
[2018-08-03] MEDS: PLAVIX PO SCH (09:48)
[2018-08-03] MEDS: THERAGRAN Tab PO SCH (09:48)
[2018-08-03] MEDS: KEPPRA PO SCH ×2 (09:48→21:23)
[2018-08-03] MEDS: LaMICtal PO SCH ×2 (09:48→21:22)
[2018-08-03] MEDS: VITAMIN B-1 PO SCH (09:48)
[2018-08-03] MEDS ORDERED: PROAMATINE PO ONE (10:04)
[2018-08-03] MEDS: ALDACTONE PO SCH (11:55)
[2018-08-03] MEDS: LASIX PO SCH (11:56)
--- NOTE | 2018-08-03 12:20 | Progress Note ---
Assessment and Plan Assessment and plan: Patient is a 62 yo woman with a history of alcohol abuse with dementia, Brain aneuyrsm x 2, CVA, hypertension, GERD, Arthritis, Seizures disorder and bipolar disorder with a history of AMS. CXR: No acute pulmonary abnormality CT chest: Very small left pleural effusion. Probable liver cirrhosis Acute Hypoxic Respiratory failure Hepatic Encephalopathy ?COPD Thrombocytopenia-secondary to etoh Sizure Disorder Hypernatremia Hypokalemia Cirrhosis Secondary to ETOH abuse Personal skilled nursing resident. Chronic Tobacco use disorder Debility due to Senility, Plan -Continue nebs -We'll start patient on low-dose midodrine to obtain better BP control so that we can appropriately diuresis the patient -ct chest was unobtainable due to access. V/Q scan done and was low probability -ABG-Done, Hypoxia, PO2 verbal read- 59 -Continue Facemask, IV fluids discontinued -Lasix held today, pt noted to have hypotension -pulmonary input noted. ECHO ordered. CT chest shows further small left pleural effusion likely related to liver cirrhosis -Continue Lactulose with added xifamin - continue antiepileptic meds - pt requring assistance with ambulation -PT eval and tx. -dvt/gi PROPHY --Disposition: D/w [facility]. Personal skilled nursing staff will be ready to take her back once clinically improved. They state ability to take care of pt's nursing need declined SNF. History Interval history: Patient seen and examined, still on oxygen, mental status waxes and wanes, still hypotension. No other new complaints. Hospitalist Physical - Physical exam Narrative exam: Gen: chronic disable NAD, Awake, Alert, Orientated x [address], but often starts laughing "what can I say about today" HEENT: NCAT, EOMI, PERRL, OP Clear Neck: supple, no adenopathy, no thyromegaly, no JVD CVS/Heart: Regular bradycardia, normal S1S2, pulses present bilaterally Chest/Lungs: CTA B, Symmetrical chest expansion, good air entry bilaterally GI/Abdomen: soft, NTND, good bowel sounds, no guarding or rebound /Bladder: no suprapubic tenderness, no CVA or paraspinal tenderness Extermity/Skin: no c/c/e, no obvious rash MSK: FROM x 4 Neuro: CN 2-12 grossly intact, no new focal deficits Psych: calm - Constitutional Vitals: Temp Pulse Resp BP Pulse Ox 97.4 F L 88 16 101/64 95 08/03/18 07:02 08/03/18 08:10 08/03/18 08:20 08/03/18 07:02 08/03/18 10:11 General appearance: Present: no acute distress Results - Labs CBC & Chem 7: 08/02/18 05:04 08/02/18 05:04 Labs: Laboratory Last Values WBC 3.5 K/mm3 (4.5-11.0) L 08/02/18 05:04 RBC 3.71 M/mm3 (3.65-5.03) 08/02/18 05:04 Hgb 10.9 gm/dl (10.1-14.3) 08/02/18 05:04 Hct 32.6 % (30.3-42.9) 08/02/18 05:04 MCV 88 fl (79-97) 08/02/18 05:04 MCH 30 pg (28-32) 08/02/18 05:04 MCHC 34 % (30-34) 08/02/18 05:04 RDW 18.1 % (13.2-15.2) H 08/02/18 05:04 Plt Count 112 K/mm3 (140-440) L 08/02/18 05:04 [place] % (Auto) Music Sound Light Technician 07/31/18 05:03 Add Manual Diff Complete 07/31/18 05:03 Total Counted 100 07/31/18 05:03 Seg Neuts % (Manual) 64.0 % (40.0-70.0) 07/31/18 05:03 Band Neutrophils % 5.0 % 07/31/18 05:03 Lymphocytes % (Manual) 10.0 % (13.4-35.0) L 07/31/18 05:03 Reactive Lymphs % (Man) 0 % 07/31/18 05:03 Monocytes % (Manual) 18.0 % (0.0-7.3) H 07/31/18 05:03 Eosinophils % (Manual) 3.0 % (0.0-4.3) 07/31/18 05:03 Basophils % (Manual) 0 % (0.0-1.8) 07/31/18 05:03 Metamyelocytes % 0 % 07/31/18 05:03 Myelocytes % 0 % 07/31/18 05:03 Promyelocytes % 0 % 07/31/18 05:03 Blast Cells % 0 % 07/31/18 05:03 Nucleated RBC % Not Reportable 07/31/18 05:03 Seg Neutrophils # Man 2.2 K/mm3 (1.8-7.7) 07/31/18 05:03 Band Neutrophils # 0.2 K/mm3 07/31/18 05:03 Lymphocytes # (Manual) 0.4 K/mm3 (1.2-5.4) L 07/31/18 05:03 Abs React Lymphs (Man) 0.0 K/mm3 07/31/18 05:03 Monocytes # (Manual) 0.6 K/mm3 (0.0-0.8) 07/31/18 05:03 Eosinophils # (Manual) 0.1 K/mm3 (0.0-0.4) 07/31/18 05:03 Basophils # (Manual) 0.0 K/mm3 (0.0-0.1) 07/31/18 05:03 Metamyelocytes # 0.0 K/mm3 07/31/18 05:03 Myelocytes # 0.0 K/mm3 07/31/18 05:03 Promyelocytes # 0.0 K/mm3 07/31/18 05:03 Blast Cells # 0.0 K/mm3 07/31/18 05:03 WBC Morphology Not Reportable 07/31/18 05:03 Hypersegmented Neuts Not Reportable 07/31/18 05:03 Hyposegmented Neuts Not Reportable 07/31/18 05:03 Hypogranular Neuts Not Reportable 07/31/18 05:03 Smudge Cells Not Reportable 07/31/18 05:03 Toxic Granulation Not Reportable 07/31/18 05:03 Toxic Vacuolation Not Reportable 07/31/18 05:03 Dohle Bodies Not Reportable 07/31/18 05:03 Pelger-Huet Anomaly Not Reportable 07/31/18 05:03 Lamine Rods Not Reportable 07/31/18 05:03 Platelet Estimate Consistent w auto 07/31/18 05:03 Clumped Platelets Not Reportable 07/31/18 05:03 Plt Clumps, EDTA Not Reportable 07/31/18 05:03 Large Platelets Not Reportable 07/31/18 05:03 Giant Platelets Not Reportable 07/31/18 05:03 Platelet Satelliting Not Reportable 07/31/18 05:03 Plt Morphology Comment Not Reportable 07/31/18 05:03 RBC Morphology Not Reportable 07/31/18 05:03 Dimorphic RBCs Not Reportable 07/31/18 05:03 Polychromasia Not Reportable 07/31/18 05:03 Hypochromasia Not Reportable 07/31/18 05:03 Poikilocytosis Not Reportable 07/31/18 05:03 Anisocytosis Few 07/31/18 05:03 Microcytosis Not Reportable 07/31/18 05:03 Macrocytosis Not Reportable 07/31/18 05:03 Spherocytes Not Reportable 07/31/18 05:03 Pappenheimer Bodies Not Reportable 07/31/18 05:03 Sickle Cells Not Reportable 07/31/18 05:03 Target Cells Not Reportable 07/31/18 05:03 Tear Drop Cells Not Reportable 07/31/18 05:03 Ovalocytes Few 07/31/18 05:03 Helmet Cells Not Reportable 07/31/18 05:03 [place] Bodies Not Reportable 07/31/18 05:03 [place] Rings Not Reportable 07/31/18 05:03 [place] Cells Not Reportable 07/31/18 05:03 Bite Cells Not Reportable 07/31/18 05:03 Crenated Cell Not Reportable 07/31/18 05:03 Elliptocytes Few 07/31/18 05:03 Acanthocytes (Spur) Not Reportable 07/31/18 05:03 Rouleaux Not Reportable 07/31/18 05:03 Hemoglobin C Crystals Not Reportable 07/31/18 05:03 Schistocytes Not Reportable 07/31/18 05:03 Malaria parasites Not Reportable 07/31/18 05:03 Brock Bodies Not Reportable 07/31/18 05:03 Hem Pathologist Commnt No 07/31/18 05:03 PT 16.6 Sec. (12.2-14.9) H 07/24/18 11:08 INR 1.26 (0.87-1.13) H 07/24/18 11:08 APTT 24.9 Sec. (24.2-36.6) 07/24/18 11:08 POC ABG pH 7.483 (7.35-7.45) H 07/31/18 13:39 POC ABG pCO2 33.3 (35-45) L 07/31/18 13:39 POC ABG HCO3 25.0 (22-26 mml/L) 07/31/18 13:39 POC ABG Total CO2 26 (23-27mmol/L) 07/31/18 13:39 POC ABG O2 Sat 83 07/31/18 13:39 POC ABG Base Excess 2 ((-2) - (+3)mmol/L) 07/31/18 13:39 FiO2 21 % 07/31/18 13:39 Sodium 138 mmol/L (137-145) 08/02/18 05:04 Potassium 4.1 mmol/L (3.6-5.0) 08/02/18 05:04 Chloride 102.7 mmol/L (98-107) 08/02/18 05:04 Carbon Dioxide 27 mmol/L (22-30) 08/02/18 05:04 Anion Gap 12 mmol/L 08/02/18 05:04 BUN 10 mg/dL (7-17) 08/02/18 05:04 Creatinine 0.5 mg/dL (0.7-1.2) L 08/02/18 05:04 Estimated GFR > 60 ml/min 08/02/18 05:04 BUN/Creatinine Ratio 20 % 08/02/18 05:04 Glucose 96 mg/dL (65-100) 08/02/18 05:04 POC Glucose 99 (70-105) 07/28/18 21:58 Hemoglobin A1c 5.4 % (4-6) 07/24/18 17:12 Calcium 8.6 mg/dL (8.4-10.2) 08/02/18 05:04 Total Bilirubin 1.00 mg/dL (0.1-1.2) 08/02/18 05:04 AST 38 units/L (5-40) 08/02/18 05:04 ALT 23 units/L (7-56) 08/02/18 05:04 Alkaline Phosphatase 106 units/L (35-129) 08/02/18 05:04 Ammonia 75.0 umol/L (25-60) H 07/31/18 08:15 Total Creatine Kinase 88 units/L (30-135) 07/24/18 11:08 CK-MB (CK-2) 3.6 ng/mL (0.0-4.0) 07/24/18 11:08 CK-MB (CK-2) Rel Index 4.0 (0-4) 07/24/18 11:08 Troponin T < 0.010 ng/mL (0.00-0.029) 07/24/18 11:08 Total Protein 5.6 g/dL (6.3-8.2) L 08/02/18 05:04 Albumin 3.1 g/dL (3.9-5) L 08/02/18 05:04 Albumin/Globulin Ratio 1.2 % 08/02/18 05:04 TSH 9.060 mlU/mL (0.270-4.200) H 07/24/18 11:08 Free T4 1.08 ng/dL (0.76-1.46) 07/24/18 11:08 Urine Color Yellow (Yellow) 07/24/18 Unknown Urine Turbidity Clear (Clear) 07/24/18 Unknown Urine pH 5.0 (5.0-7.0) 07/24/18 Unknown Ur Specific [place] 1.024 (1.003-1.030) 07/24/18 Unknown Urine Protein <15 mg/dl mg/dL (Negative) 07/24/18 Unknown Urine Glucose (UA) Neg mg/dL (Negative) 07/24/18 Unknown Urine Ketones Neg mg/dL (Negative) 07/24/18 Unknown Urine Blood Neg (Negative) 07/24/18 Unknown Urine Nitrite Neg (Negative) 07/24/18 Unknown Urine Bilirubin Neg (Negative) 07/24/18 Unknown Urine Urobilinogen < 2.0 mg/dL (<2.0) 07/24/18 Unknown Ur Leukocyte Esterase Neg (Negative) 07/24/18 Unknown Urine WBC (Auto) 1.0 /HPF (0.0-6.0) 07/24/18 Unknown Urine RBC (Auto) 1.0 /HPF (0.0-6.0) 07/24/18 Unknown Hyaline Casts 1 /LPF 07/24/18 Unknown Urine Mucus Few /HPF 07/24/18 Unknown Salicylates < 0.3 mg/dL (2.8-20.0) L 07/24/18 11:08 Urine Opiates Screen Presumptive negative 07/24/18 Unknown Urine Methadone Screen Presumptive negative 07/24/18 Unknown Acetaminophen < 5.0 ug/mL (10.0-30.0) L 07/24/18 11:08 Ur Barbiturates Screen Presumptive negative 07/24/18 Unknown Ur Phencyclidine Scrn Presumptive negative 07/24/18 Unknown Ur Amphetamines Screen Presumptive negative 07/24/18 Unknown U Benzodiazepines Scrn Presumptive negative 07/24/18 Unknown Urine Cocaine Screen Presumptive negative 07/24/18 Unknown U Marijuana (THC) Screen Presumptive negative 07/24/18 Unknown Drugs of Abuse Note Disclamer 07/24/18 Unknown Plasma/Serum Alcohol < 0.01 % (0-0.07) 07/24/18 11:08 Active Medications - Current Medications Current Medications: Generic Name Dose Route Start Last Admin Trade Name Freq PRN Reason Stop Dose Admin Acetaminophen 650 mg 07/24/18 16:40 08/02/18 23:30 Tylenol PO 650 mg Q4H PRN Administration Pain MILD(1-3)/Fever >100.5/PÉREZ Albuterol 2.5 mg 07/30/18 19:01 Proventil IH Q6HRT PRN Shortness Of Breath Albuterol/Ipratropium 1 ampul 07/31/18 08:00 08/03/18 07:52 Duoneb *Not For Prn Use* IH 1 ampul TIDRT HUONG Administration Aspirin 81 mg 07/24/18 17:00 08/03/18 09:48 Baby Aspirin PO 81 mg DAILY [facility] Administration Clopidogrel Bisulfate 75 mg 07/24/18 17:15 08/03/18 09:48 Plavix PO 75 mg DAILY [facility] Administration Folic Acid 1 mg 07/24/18 17:00 08/03/18 09:48 Folvite PO 1 mg QDAY [facility] Administration Furosemide 20 mg 07/24/18 17:00 08/03/18 11:56 Lasix PO Not Given QDAY [facility] Heparin Sodium (Porcine) 5,000 unit 07/30/18 22:00 08/03/18 05:53 Heparin SUB-Q Not Given Q8HR [facility] Hydromorphone HCl 0.25 mg 07/24/18 16:40 07/26/18 05:00 Dilaudid IV 0.25 mg Q3H PRN Administration Pain, Moderate (4-6) Lactulose 20 gm 07/30/18 10:00 08/03/18 09:47 Cephulac PO 20 gm QDAY [facility] Administration Lamotrigine 25 mg 07/24/18 22:00 08/03/18 09:48 Lamictal PO 25 mg BID HUONG Administration Levetiracetam 1,500 mg 07/24/18 22:00 08/03/18 09:48 Keppra PO 1,500 mg BID HUONG Administration Levothyroxine Sodium 100 mcg 07/25/18 06:00 08/03/18 05:56 Synthroid PO 100 mcg DAILY@0600 [facility] Administration Lorazepam 2 mg 07/25/18 00:01 07/31/18 23:36 Ativan IV 2 mg Q1H PRN Administration CIWA-Ar 8-15 Lorazepam 4 mg 07/25/18 00:01 Ativan IV Q1H PRN CIWA-Ar 16-25 Midodrine 5 mg 08/03/18 10:05 Proamatine PO TID@0800,1200,1600 [facility] Multivitamins 1 each 07/25/18 10:00 08/03/18 09:48 Theragran Tab PO 1 each DAILY [facility] Administration Ondansetron HCl 4 mg 07/24/18 16:40 Zofran IV Q8H PRN Nausea And Vomiting Rifaximin 550 mg 07/27/18 11:00 08/03/18 09:47 Xifaxan PO 550 mg BID [facility] Administration Spironolactone 50 mg 07/30/18 10:00 08/03/18 11:55 Aldactone PO Not Given QDAY [facility] Thiamine HCl 100 mg 07/24/18 17:00 08/03/18 09:48 Vitamin B-1 PO 100 mg QDAY [facility] Administration Trazodone HCl 50 mg 07/24/18 16:45 08/02/18 23:21 Desyrel PO 50 mg QHS PRN Administration Sleep Nutrition/Malnutrition Assess - Dietary Evaluation Nutrition/Malnutrition Findings: Nutrition Notes Start: 07/30/18 15:57 Freq: Status: Active Protocol: Document 08/02/18 13:41 [place] (Rec: 08/02/18 13:42 [place] [id number]) Nutrition Notes Initial or Follow up Reassessment Current Diet Pureed Labs/Tests Na 135 K+ 4.1 Ca 8.6 Alb 3.1 hgba1c 5.4 Pertinent Medications folic acid MVI THIAMIN synthroid lactulose Height 5 ft 4 in Weight 61.5 kg [place] Body Weight (kg) 54.54 BMI 23.3 Intake Prior to Admission Fair Weight Status Appropriate Subjective/Other Information F/U; Pt. sitting up in bed requesting to go home. Significant other asleep in the chair beside pt. Per notes pt to be returning to personal skilled nursing post discharge. Percent of energy/protein needs met: >65% PRO/KCAL Burn Absent Trauma Absent GI Symptoms None Current % PO Fair (50-74%) Is patient on ventilator? No Nutrition Intervention Change Diet Order: Cont. Pureed diet Provides kCal: 350 Provides Protein (gm) 20 Goal #1 Meet at least 75% of calorie and protein needs via PO and ONS intakes Anticipated Discharge Needs: Pureed diet Follow-Up By: 08/06/18 Additional Comments Follow for PO and ONS intakes
--- NOTE | 2018-08-03 13:44 | Progress Note ---
Assessment and Plan Imp: 1. Hepatic encephalopathy 2. Liver cirrhosis, 2/2 EtOH 3. Chronic nicotine dependence, cigarettes 4. Acute respiratory failure, hypoxia; unclear etiology Plan 1. No evidence of COPD on CT. Cannot tell from echo report if patient has pulmonary hypertension or not. 2. Smoking cessation. 3. Follow up in office with PFT's if possible 4. Consider more lasix therapy if BP will allow. THis patient likely lives in a low flow state given her liver disease. may need to consider accepting lower MAPs so that diuresis can occur. Subjective Date of service: 08/03/18 Principal diagnosis: hepatic encephalopathy, pancytopenia Interval history: No acute events. Had echo done yesterday. Unsure if patient has PULM HTN as the RVSP is not listed ( not dictated but quotations are where it should be). Down to 5 liters NC. Lasix not given today. Objective Vital Signs - 12hr 08/03/18 08/03/18 08/03/18 06:59 07:02 07:53 Temperature 99.0 F 97.4 F L Pulse Rate 70 65 Pulse Rate [ 66 Anterior Bilateral Throughout] Respiratory 18 16 Rate Respiratory 17 Rate [Anterior Bilateral Throughout] Blood Pressure 108/62 101/64 O2 Sat by Pulse 94 99 96 Oximetry 08/03/18 08/03/18 08/03/18 08:10 08:19 08:20 Temperature Pulse Rate Pulse Rate [ 88 Anterior Bilateral Throughout] Respiratory 16 Rate Respiratory 20 Rate [Anterior Bilateral Throughout] Blood Pressure O2 Sat by Pulse 98 Oximetry 08/03/18 08/03/18 08/03/18 09:49 10:11 12:19 Temperature 98.2 F Pulse Rate 71 63 Pulse Rate [ Anterior Bilateral Throughout] Respiratory 20 Rate Respiratory Rate [Anterior Bilateral Throughout] Blood Pressure 83/43 92/51 O2 Sat by Pulse 97 95 91 Oximetry Constitutional: no acute distress, asleep (arousable) Eyes: non-icteric ENT: oropharynx moist Neck: supple Effort: normal Ascultation: Bilateral: diminished breath sounds Cardiovascular: regular rate and rhythm (no mrg) Gastrointestinal: normoactive bowel sounds, soft, non-tender, non-distended Integumentary: normal Extremities: no cyanosis, no edema, pink and warm Neurologic: non-focal exam, pupils equal and round, CN II-XII normal, other (confused) Psychiatric: mood appropriate, affect normal CBC and BMP: 08/02/18 05:04 08/02/18 05:04 ABG, PT/INR, D-dimer: ABG POC ABG pH 7.483 (7.35-7.45) H 07/31/18 13:39 POC ABG pCO2 33.3 (35-45) L 07/31/18 13:39 POC ABG HCO3 25.0 (22-26 mml/L) 07/31/18 13:39 POC ABG Total CO2 26 (23-27mmol/L) 07/31/18 13:39 POC ABG O2 Sat 83 07/31/18 13:39 PT/INR, D-dimer PT 16.6 Sec. (12.2-14.9) H 07/24/18 11:08 INR 1.26 (0.87-1.13) H 07/24/18 11:08 Abnormal lab findings: Abnormal Labs 07/24/18 07/24/18 07/24/18 11:08 11:08 11:08 WBC 3.6 L Hct RDW 17.5 H Plt Count 132 L Seg Neuts % (Manual) Lymphocytes % (Manual) Monocytes % (Manual) 9.0 H Nucleated RBC % 1.0 H Lymphocytes # (Manual) 0.8 L PT 16.6 H INR 1.26 H POC ABG pH POC ABG pCO2 Sodium Potassium Chloride Carbon Dioxide 20 L BUN Creatinine Glucose 141 H POC Glucose Calcium Total Bilirubin 1.50 H AST Ammonia Total Protein Albumin 3.7 L TSH Salicylates Acetaminophen 07/24/18 07/24/18 07/24/18 11:08 11:08 11:08 WBC Hct RDW Plt Count Seg Neuts % (Manual) Lymphocytes % (Manual) Monocytes % (Manual) Nucleated RBC % Lymphocytes # (Manual) PT INR POC ABG pH POC ABG pCO2 Sodium Potassium Chloride Carbon Dioxide BUN Creatinine Glucose POC Glucose Calcium Total Bilirubin AST Ammonia 139.0 H Total Protein Albumin TSH Salicylates < 0.3 L Acetaminophen < 5.0 L 07/24/18 07/24/18 07/25/18 11:08 12:08 05:05 WBC Hct RDW Plt Count Seg Neuts % (Manual) Lymphocytes % (Manual) Monocytes % (Manual) Nucleated RBC % Lymphocytes # (Manual) PT INR POC ABG pH POC ABG pCO2 Sodium Potassium Chloride Carbon Dioxide 21 L BUN Creatinine Glucose POC Glucose 114 H Calcium Total Bilirubin 1.80 H AST Ammonia Total Protein Albumin TSH 9.060 H Salicylates Acetaminophen 07/25/18 07/25/18 07/26/18 05:06 16:52 05:23 WBC Hct 43.3 H RDW 17.6 H 17.5 H Plt Count Seg Neuts % (Manual) 77.0 H Lymphocytes % (Manual) Monocytes % (Manual) Nucleated RBC % Lymphocytes # (Manual) 1.0 L PT INR POC ABG pH POC ABG pCO2 Sodium Potassium Chloride Carbon Dioxide BUN Creatinine Glucose POC Glucose Calcium Total Bilirubin AST Ammonia 74.0 H Total Protein Albumin TSH Salicylates Acetaminophen 07/26/18 07/26/18 07/27/18 05:23 17:09 07:53 WBC Hct RDW Plt Count Seg Neuts % (Manual) Lymphocytes % (Manual) Monocytes % (Manual) Nucleated RBC % Lymphocytes # (Manual) PT INR POC ABG pH POC ABG pCO2 Sodium 150 H Potassium 3.5 L Chloride 114.5 H Carbon Dioxide 21 L 21 L BUN Creatinine 0.5 L Glucose 107 H 118 H POC Glucose Calcium Total Bilirubin 1.40 H AST Ammonia 66.0 H Total Protein Albumin 3.8 L TSH Salicylates Acetaminophen 07/27/18 07/29/18 07/29/18 07:57 05:20 05:20 WBC Hct RDW 17.0 H 17.6 H Plt Count 131 L 135 L Seg Neuts % (Manual) Lymphocytes % (Manual) Monocytes % (Manual) 15.0 H Nucleated RBC % Lymphocytes # (Manual) PT INR POC ABG pH POC ABG pCO2 Sodium 134 L Potassium 3.1 L Chloride Carbon Dioxide 21 L BUN 3 L Creatinine 0.5 L Glucose 115 H POC Glucose Calcium 8.3 L Total Bilirubin 1.50 H AST 52 H Ammonia Total Protein 5.7 L Albumin 3.3 L TSH Salicylates Acetaminophen 07/30/18 07/30/18 07/31/18 05:43 05:43 05:03 WBC 3.5 L Hct RDW 17.8 H 17.4 H Plt Count 116 L 103 L Seg Neuts % (Manual) Lymphocytes % (Manual) 10.0 L Monocytes % (Manual) 12.0 H 18.0 H Nucleated RBC % Lymphocytes # (Manual) 0.8 L 0.4 L PT INR POC ABG pH POC ABG pCO2 Sodium Potassium Chloride Carbon Dioxide BUN 3 L Creatinine 0.6 L Glucose 112 H POC Glucose Calcium 8.0 L Total Bilirubin 1.50 H AST 47 H Ammonia Total Protein 5.6 L Albumin 3.1 L TSH Salicylates Acetaminophen 07/31/18 07/31/18 07/31/18 05:03 08:15 13:39 WBC Hct RDW Plt Count Seg Neuts % (Manual) Lymphocytes % (Manual) Monocytes % (Manual) Nucleated RBC % Lymphocytes # (Manual) PT INR POC ABG pH 7.483 H POC ABG pCO2 33.3 L Sodium Potassium Chloride Carbon Dioxide BUN 5 L Creatinine 0.6 L Glucose 103 H POC Glucose Calcium 7.9 L Total Bilirubin 1.30 H AST 45 H Ammonia 75.0 H Total Protein 5.2 L Albumin 2.8 L TSH Salicylates Acetaminophen 08/02/18 08/02/18 05:04 05:04 WBC 3.5 L Hct RDW 18.1 H Plt Count 112 L Seg Neuts % (Manual) Lymphocytes % (Manual) Monocytes % (Manual) Nucleated RBC % Lymphocytes # (Manual) PT INR POC ABG pH POC ABG pCO2 Sodium Potassium Chloride Carbon Dioxide BUN Creatinine 0.5 L Glucose POC Glucose Calcium Total Bilirubin AST Ammonia Total Protein 5.6 L Albumin 3.1 L TSH Salicylates Acetaminophen
[2018-08-03] MEDS: TYLENOL PO PRN (21:22)
[2018-08-03] MEDS: DESYREL PO PRN (21:23)
[2018-08-04] MEDS: PROAMATINE PO SCH ×4 (01:40→16:00)
[2018-08-04] MEDS: SYNTHROID PO SCH (06:20)
[2018-08-04] MEDS: HEPARIN SUB-Q SCH ×2 (06:20→13:47)
[2018-08-04] MEDS: DUONEB *Not for PRN Use IH SCH ×2 (08:08→13:43)
[2018-08-04] MEDS: KEPPRA PO SCH (09:52)
[2018-08-04] MEDS: THERAGRAN Tab PO SCH (09:52)
[2018-08-04] MEDS: LaMICtal PO SCH (09:53)
[2018-08-04] MEDS: VITAMIN B-1 PO SCH (09:53)
[2018-08-04] MEDS: PLAVIX PO SCH (09:53)
[2018-08-04] MEDS: FOLVITE PO SCH (09:53)
[2018-08-04] MEDS: CEPHULAC PO SCH (09:53)
[2018-08-04] MEDS: BABY ASPIRIN PO SCH (09:53)
[2018-08-04] MEDS: ALDACTONE PO SCH (09:54)
[2018-08-04] MEDS ORDERED: LASIX IV SCH (10:00)
[2018-08-04] MEDS: XIFAXAN PO SCH (10:22)
--- NOTE | 2018-08-04 10:27 | XRay Report ---
AP CHEST: HISTORY: Respiratory failure Compared to 07/31/18. Heart and mediastinal structures remain unremarkable. Normal pulmonary vascularity. A focal 4 cm airspace opacity has developed posterior to the heart in the left lower lobe. I suspect this represents segmental atelectasis. The remainder of the lungs are clear. No large pleural effusion or pneumothorax. The bony structures are grossly intact. IMPRESSION: Left lower lobe opacity as described. I favor focal atelectasis.
--- NOTE | 2018-08-04 10:52 | Progress Note ---
Assessment and Plan Assessment and plan: Patient is a 62 yo woman with a history of alcohol abuse with dementia, Brain aneuyrsm x 2, CVA, hypertension, GERD, Arthritis, Seizures disorder and bipolar disorder with a history of AMS. CXR: No acute pulmonary abnormality CT chest: Very small left pleural effusion. 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 Chronic Tobacco use disorder Debility due to Senility, Plan -Continue nebs -We'll start patient on low-dose midodrine to obtain better BP control so that we can appropriately diuresis the patient -ct chest was unobtainable due to access. V/Q scan done and was low probability -ABG-Done, Hypoxia, PO2 verbal read- 59 -Continue Facemask, IV fluids discontinued -Lasix held today, pt noted to have hypotension -pulmonary input noted. ECHO ordered. CT chest shows further small left pleural effusion likely related to liver cirrhosis -Continue Lactulose with added xifamin - continue antiepileptic meds - pt requring assistance with ambulation -PT eval and tx. -dvt/gi PROPHY --Disposition: D/w Case [facility]. [facility] ready to take her [facility] once clinically improved. They state ability to take care of pt's nursing need declined SNF. Hospitalist Physical - Constitutional Vitals: Temp Pulse Resp BP Pulse Ox 97.5 F L 81 20 95/43 95 08/04/18 05:11 08/04/18 08:25 08/04/18 08:25 08/04/18 09:54 08/04/18 09:04 General appearance: Present: no acute distress Results - Labs CBC & Chem 7: 08/02/18 05:04 08/02/18 05:04 Labs: Laboratory Last Values WBC 3.5 K/mm3 (4.5-11.0) L 08/02/18 05:04 RBC 3.71 M/mm3 (3.65-5.03) 08/02/18 05:04 Hgb 10.9 gm/dl (10.1-14.3) 08/02/18 05:04 Hct 32.6 % (30.3-42.9) 08/02/18 05:04 MCV 88 fl (79-97) 08/02/18 05:04 MCH 30 pg (28-32) 08/02/18 05:04 MCHC 34 % (30-34) 08/02/18 05:04 RDW 18.1 % (13.2-15.2) H 08/02/18 05:04 Plt Count 112 K/mm3 (140-440) L 08/02/18 05:04 [place] % (Auto) Cd Reactor Operator Head 07/31/18 05:03 Add Manual Diff Complete 07/31/18 05:03 Total Counted 100 07/31/18 05:03 Seg Neuts % (Manual) 64.0 % (40.0-70.0) 07/31/18 05:03 Band Neutrophils % 5.0 % 07/31/18 05:03 Lymphocytes % (Manual) 10.0 % (13.4-35.0) L 07/31/18 05:03 Reactive Lymphs % (Man) 0 % 07/31/18 05:03 Monocytes % (Manual) 18.0 % (0.0-7.3) H 07/31/18 05:03 Eosinophils % (Manual) 3.0 % (0.0-4.3) 07/31/18 05:03 Basophils % (Manual) 0 % (0.0-1.8) 07/31/18 05:03 Metamyelocytes % 0 % 07/31/18 05:03 Myelocytes % 0 % 07/31/18 05:03 Promyelocytes % 0 % 07/31/18 05:03 Blast Cells % 0 % 07/31/18 05:03 Nucleated RBC % Not Reportable 07/31/18 05:03 Seg Neutrophils # Man 2.2 K/mm3 (1.8-7.7) 07/31/18 05:03 Band Neutrophils # 0.2 K/mm3 07/31/18 05:03 Lymphocytes # (Manual) 0.4 K/mm3 (1.2-5.4) L 07/31/18 05:03 Abs React Lymphs (Man) 0.0 K/mm3 07/31/18 05:03 Monocytes # (Manual) 0.6 K/mm3 (0.0-0.8) 07/31/18 05:03 Eosinophils # (Manual) 0.1 K/mm3 (0.0-0.4) 07/31/18 05:03 Basophils # (Manual) 0.0 K/mm3 (0.0-0.1) 07/31/18 05:03 Metamyelocytes # 0.0 K/mm3 07/31/18 05:03 Myelocytes # 0.0 K/mm3 07/31/18 05:03 Promyelocytes # 0.0 K/mm3 07/31/18 05:03 Blast Cells # 0.0 K/mm3 07/31/18 05:03 WBC Morphology Not Reportable 07/31/18 05:03 Hypersegmented Neuts Not Reportable 07/31/18 05:03 Hyposegmented Neuts Not Reportable 07/31/18 05:03 Hypogranular Neuts Not Reportable 07/31/18 05:03 Smudge Cells Not Reportable 07/31/18 05:03 Toxic Granulation Not Reportable 07/31/18 05:03 Toxic Vacuolation Not Reportable 07/31/18 05:03 Dohle Bodies Not Reportable 07/31/18 05:03 Pelger-Huet Anomaly Not Reportable 07/31/18 05:03 Lamine Rods Not Reportable 07/31/18 05:03 Platelet Estimate Consistent w auto 07/31/18 05:03 Clumped Platelets Not Reportable 07/31/18 05:03 Plt Clumps, EDTA Not Reportable 07/31/18 05:03 Large Platelets Not Reportable 07/31/18 05:03 Giant Platelets Not Reportable 07/31/18 05:03 Platelet Satelliting Not Reportable 07/31/18 05:03 Plt Morphology Comment Not Reportable 07/31/18 05:03 RBC Morphology Not Reportable 07/31/18 05:03 Dimorphic RBCs Not Reportable 07/31/18 05:03 Polychromasia Not Reportable 07/31/18 05:03 Hypochromasia Not Reportable 07/31/18 05:03 Poikilocytosis Not Reportable 07/31/18 05:03 Anisocytosis Few 07/31/18 05:03 Microcytosis Not Reportable 07/31/18 05:03 Macrocytosis Not Reportable 07/31/18 05:03 Spherocytes Not Reportable 07/31/18 05:03 Pappenheimer Bodies Not Reportable 07/31/18 05:03 Sickle Cells Not Reportable 07/31/18 05:03 Target Cells Not Reportable 07/31/18 05:03 Tear Drop Cells Not Reportable 07/31/18 05:03 Ovalocytes Few 07/31/18 05:03 Helmet Cells Not Reportable 07/31/18 05:03 Pool-Jaguas Bodies Not Reportable 07/31/18 05:03 [place] Rings Not Reportable 07/31/18 05:03 Terry Cells Not Reportable 07/31/18 05:03 Bite Cells Not Reportable 07/31/18 05:03 Crenated Cell Not Reportable 07/31/18 05:03 Elliptocytes Few 07/31/18 05:03 Acanthocytes (Spur) Not Reportable 07/31/18 05:03 Rouleaux Not Reportable 07/31/18 05:03 Hemoglobin C Crystals Not Reportable 07/31/18 05:03 Schistocytes Not Reportable 07/31/18 05:03 Malaria parasites Not Reportable 07/31/18 05:03 Brock Bodies Not Reportable 07/31/18 05:03 Hem Pathologist Commnt No 07/31/18 05:03 PT 16.6 Sec. (12.2-14.9) H 07/24/18 11:08 INR 1.26 (0.87-1.13) H 07/24/18 11:08 APTT 24.9 Sec. (24.2-36.6) 07/24/18 11:08 POC ABG pH 7.483 (7.35-7.45) H 07/31/18 13:39 POC ABG pCO2 33.3 (35-45) L 07/31/18 13:39 POC ABG HCO3 25.0 (22-26 mml/L) 07/31/18 13:39 POC ABG Total CO2 26 (23-27mmol/L) 07/31/18 13:39 POC ABG O2 Sat 83 07/31/18 13:39 POC ABG Base Excess 2 ((-2) - (+3)mmol/L) 07/31/18 13:39 FiO2 21 % 07/31/18 13:39 Sodium 138 mmol/L (137-145) 08/02/18 05:04 Potassium 4.1 mmol/L (3.6-5.0) 08/02/18 05:04 Chloride 102.7 mmol/L (98-107) 08/02/18 05:04 Carbon Dioxide 27 mmol/L (22-30) 08/02/18 05:04 Anion Gap 12 mmol/L 08/02/18 05:04 BUN 10 mg/dL (7-17) 08/02/18 05:04 Creatinine 0.5 mg/dL (0.7-1.2) L 08/02/18 05:04 Estimated GFR > 60 ml/min 08/02/18 05:04 BUN/Creatinine Ratio 20 % 08/02/18 05:04 Glucose 96 mg/dL (65-100) 08/02/18 05:04 POC Glucose 99 (70-105) 07/28/18 21:58 Hemoglobin A1c 5.4 % (4-6) 07/24/18 17:12 Calcium 8.6 mg/dL (8.4-10.2) 08/02/18 05:04 Total Bilirubin 1.00 mg/dL (0.1-1.2) 08/02/18 05:04 AST 38 units/L (5-40) 08/02/18 05:04 ALT 23 units/L (7-56) 08/02/18 05:04 Alkaline Phosphatase 106 units/L (35-129) 08/02/18 05:04 Ammonia 75.0 umol/L (25-60) H 07/31/18 08:15 Total Creatine Kinase 88 units/L (30-135) 07/24/18 11:08 CK-MB (CK-2) 3.6 ng/mL (0.0-4.0) 07/24/18 11:08 CK-MB (CK-2) Rel Index 4.0 (0-4) 07/24/18 11:08 Troponin T < 0.010 ng/mL (0.00-0.029) 07/24/18 11:08 Total Protein 5.6 g/dL (6.3-8.2) L 08/02/18 05:04 Albumin 3.1 g/dL (3.9-5) L 08/02/18 05:04 Albumin/Globulin Ratio 1.2 % 08/02/18 05:04 TSH 9.060 mlU/mL (0.270-4.200) H 07/24/18 11:08 Free T4 1.08 ng/dL (0.76-1.46) 07/24/18 11:08 Urine Color Yellow (Yellow) 07/24/18 Unknown Urine Turbidity Clear (Clear) 07/24/18 Unknown Urine pH 5.0 (5.0-7.0) 07/24/18 Unknown Ur Specific [place] 1.024 (1.003-1.030) 07/24/18 Unknown Urine Protein <15 mg/dl mg/dL (Negative) 07/24/18 Unknown Urine Glucose (UA) Neg mg/dL (Negative) 07/24/18 Unknown Urine Ketones Neg mg/dL (Negative) 07/24/18 Unknown Urine Blood Neg (Negative) 07/24/18 Unknown Urine Nitrite Neg (Negative) 07/24/18 Unknown Urine Bilirubin Neg (Negative) 07/24/18 Unknown Urine Urobilinogen < 2.0 mg/dL (<2.0) 07/24/18 Unknown Ur Leukocyte Esterase Neg (Negative) 07/24/18 Unknown Urine WBC (Auto) 1.0 /HPF (0.0-6.0) 07/24/18 Unknown Urine RBC (Auto) 1.0 /HPF (0.0-6.0) 07/24/18 Unknown Hyaline Casts 1 /LPF 07/24/18 Unknown Urine Mucus Few /HPF 07/24/18 Unknown Salicylates < 0.3 mg/dL (2.8-20.0) L 07/24/18 11:08 Urine Opiates Screen Presumptive negative 07/24/18 Unknown Urine Methadone Screen Presumptive negative 07/24/18 Unknown Acetaminophen < 5.0 ug/mL (10.0-30.0) L 07/24/18 11:08 Ur Barbiturates Screen Presumptive negative 07/24/18 Unknown Ur Phencyclidine Scrn Presumptive negative 07/24/18 Unknown Ur Amphetamines Screen Presumptive negative 07/24/18 Unknown U Benzodiazepines Scrn Presumptive negative 07/24/18 Unknown Urine Cocaine Screen Presumptive negative 07/24/18 Unknown U Marijuana (THC) Screen Presumptive negative 07/24/18 Unknown Drugs of Abuse Note Disclamer 07/24/18 Unknown Plasma/Serum Alcohol < 0.01 % (0-0.07) 07/24/18 11:08 Active Medications - Current Medications Current Medications: Generic Name Dose Route Start Last Admin Trade Name Freq PRN Reason Stop Dose Admin Acetaminophen 650 mg 07/24/18 16:40 08/03/18 21:22 Tylenol PO 650 mg Q4H PRN Administration Pain MILD(1-3)/Fever >100.5/PÉREZ Albuterol 2.5 mg 07/30/18 19:01 Proventil IH Q6HRT PRN Shortness Of Breath Albuterol/Ipratropium 1 ampul 07/31/18 08:00 08/04/18 08:08 Duoneb *Not For Prn Use* IH 1 ampul TIDRT HUONG Administration Aspirin 81 mg 07/24/18 17:00 08/04/18 09:53 Baby Aspirin PO 81 mg DAILY HUONG Administration Clopidogrel Bisulfate 75 mg 07/24/18 17:15 08/04/18 09:53 Plavix PO 75 mg DAILY HUONG Administration Folic Acid 1 mg 07/24/18 17:00 08/04/18 09:53 Folvite PO 1 mg QDAY HUONG Administration Furosemide 40 mg 08/04/18 10:00 08/04/18 10:10 Lasix IV 40 mg 0600,1800 HUONG Administration Heparin Sodium (Porcine) 5,000 unit 07/30/18 22:00 08/04/18 06:20 Heparin SUB-Q 5,000 unit Q8HR HUONG Administration Hydromorphone HCl 0.25 mg 07/24/18 16:40 07/26/18 05:00 Dilaudid IV 0.25 mg Q3H PRN Administration Pain, Moderate (4-6) Lactulose 20 gm 07/30/18 10:00 08/04/18 09:53 Cephulac PO 20 gm QDAY HUONG Administration Lamotrigine 25 mg 07/24/18 22:00 08/04/18 09:53 Lamictal PO 25 mg BID HUONG Administration Levetiracetam 1,500 mg 07/24/18 22:00 08/04/18 09:52 Keppra PO 1,500 mg BID HUONG Administration Levothyroxine Sodium 100 mcg 07/25/18 06:00 08/04/18 06:20 Synthroid PO 100 mcg DAILY@0600 HUONG Administration Lorazepam 2 mg 07/25/18 00:01 07/31/18 23:36 Ativan IV 2 mg Q1H PRN Administration CIWA-Ar 8-15 Lorazepam 4 mg 07/25/18 00:01 Ativan IV Q1H PRN CIWA-Ar 16-25 Midodrine 5 mg 08/03/18 10:05 08/04/18 09:53 Proamatine PO 5 mg TID@0800,1200,1600 HUONG Administration Multivitamins 1 each 07/25/18 10:00 08/04/18 09:52 Theragran Tab PO 1 each DAILY HUONG Administration Ondansetron HCl 4 mg 07/24/18 16:40 Zofran IV Q8H PRN Nausea And Vomiting Rifaximin 550 mg 07/27/18 11:00 08/04/18 10:22 Xifaxan PO 550 mg BID HUONG Administration Spironolactone 50 mg 07/30/18 10:00 08/04/18 09:54 Aldactone PO Not Given QDAY HUONG Thiamine HCl 100 mg 07/24/18 17:00 08/04/18 09:53 Vitamin B-1 PO 100 mg QDAY HUONG Administration Trazodone HCl 50 mg 07/24/18 16:45 08/03/18 21:23 Desyrel PO 50 mg QHS PRN Administration Sleep Nutrition/Malnutrition Assess - Dietary Evaluation Nutrition/Malnutrition Findings: Nutrition Notes Start: 07/30/18 15:57 Freq: Status: Active Protocol: Document 08/02/18 13:41 OH (Rec: 08/02/18 13:42 OH [id number]) Nutrition Notes Initial or Follow up Reassessment Current Diet Pureed Labs/Tests Na 135 K+ 4.1 Ca 8.6 Alb 3.1 hgba1c 5.4 Pertinent Medications folic acid MVI THIAMIN synthroid lactulose Height 5 ft 4 in Weight 61.5 kg [place] Body Weight (kg) 54.54 BMI 23.3 Intake Prior to Admission Fair Weight Status Appropriate Subjective/Other Information F/U; Pt. sitting up in bed requesting to go home. Significant other asleep in the chair beside pt. Per notes [facility]. Percent of energy/protein needs met: >65% PRO/KCAL Burn Absent Trauma Absent GI Symptoms None Current % PO Fair (50-74%) Is patient on ventilator? No Nutrition Intervention Change Diet Order: Cont. Pureed diet Provides kCal: 350 Provides Protein (gm) 20 Goal #1 Meet at least 75% of calorie and protein needs via PO and ONS intakes Anticipated Discharge Needs: Pureed diet Follow-Up By: 08/06/18 Additional Comments Follow for PO and ONS intakes
--- NOTE | 2018-08-04 10:59 | Discharge Summary ---
Providers - Providers Date of Admission: 07/24/18 12:52 Attending physician: CATHERINE MANN MD 07/24/18 16:40 Consult to Physician [CONS] Routine Comment: Consulting Provider: CINDI THOMAS Physician Instructions: Reason For Exam: hepatic encephalopathy 07/26/18 13:21 Occupational Therapy Evaluate and Treat [CONS] Routine Comment: Reason For Exam: ADLs evaluation Physical Therapy Evaluation and Treat [CONS] Routine Comment: Reason For Exam: gait evaluation/ambulatory dysfunction 07/31/18 07:58 Consult to Physician [CONS] Routine Comment: Consulting Provider: NICOLA RAM Physician Instructions: Reason For Exam: HYPOXIC RESPIRTORY FAILURE Primary care physician: EDUIN TELLO Hospitalization Reason for admission: Respiratory failure Condition: Stable Hospital course: Patient is a 62 yo woman with a history of alcohol abuse with dementia, Brain aneuyrsm x 2, CVA, hypertension, GERD, Arthritis, Seizures disorder and bipolar disorder with a history of AMS. Patient was treated with oxygen and fluids was discontinued, Lasix Held with improvement in BP, we had extensive discussion with the patient and carefiver about her clinically condition, Pulmonary was consulted during the cause of her care due to the Hypoxia, at the time of discharge it was felt that the patient had possible portal pulmonary hypertension secondary to cirrhosis and a re- evaluation will be done based on Echo findings. Caregiver reported that patient has had an episode of hypxoa in the past but resolved following a few days in the hospital. This unfortunately has become persistent. CXR: No acute pulmonary abnormality CT chest: Very small left pleural effusion. 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 Chronic Tobacco use disorder Debility due to Senility, Disposition: [id number] HOME UNDER HOME [facility] Time spent for discharge: 35 mins Core Measure Documentation - Palliative Care Palliative Care/ Comfort Measures: Not Applicable - Core Measures Any of the following diagnoses?: none Exam - Physical Exam Narrative exam: Gen: chronic disable NAD, Awake, Alert, Orientated x [address], HEENT: NCAT, EOMI, PERRL, OP Clear Neck: supple, no adenopathy, no thyromegaly, no JVD CVS/Heart: Regular bradycardia, normal S1S2, pulses present bilaterally Chest/Lungs: CTA B, Symmetrical chest expansion, good air entry bilaterally GI/Abdomen: soft, NTND, good bowel sounds, no guarding or rebound /Bladder: no suprapubic tenderness, no CVA or paraspinal tenderness Extermity/Skin: no c/c/e, no obvious rash MSK: FROM x 4 Neuro: CN 2-12 grossly intact, no new focal deficits Psych: calm - Constitutional Vitals: Temp Pulse Resp BP Pulse Ox 97.5 F L 81 20 95/43 95 08/04/18 05:11 08/04/18 08:25 08/04/18 08:25 08/04/18 09:54 08/04/18 09:04 Plan Activity: advance as tolerated, fall precautions Diet: low salt Special Instructions: record daily weights, record daily BP diary, smoking cessation, physical therapy, occupational therapy, home oxygen via (nasal cannula @ 3 liters per minute), other (etoh cessation) Follow up with: EDUIN TELLO MD [Primary Care Provider] - 7 Days AUDELIA VEGA MD [Staff Physician] - 7 Days ANGLE SALGUERO MD [Staff Physician] - 7 Days DELORIS PELAEZ MD [Staff Physician] - 7 Days Prescriptions: Spironolactone [Aldactone] 50 mg PO QDAY #30 tablet Midodrine [Proamatine] 5 mg PO TID@0800,1200,1600 #90 tablet ALBUTEROL NEB's [Proventil 0.083% NEBS] 2.5 mg IH Q6HRT PRN #90 nebu PRN Reason: Shortness Of Breath Rifaximin [Xifaxan] 550 mg PO BID #60 tablet Ipratropium/Albuterol Sulfate [DUONEB *Not for PRN Use*] 1 ampul IH TIDRT #90 ampul.neb Other Discharge Orders: Physicial Therapy (Amb) Location: None Selected Nebulizer (Amb) Location: None Selected
[2018-08-04 12:47] VITALS: BP 96/51
== END 2018-08-04 16:00 | disposition home health service (06) | DRG 441 ==
LOC: ED 10:43 → 3A 12:52
PROVIDERS: ADMIT Internal Medicine; ATTEND Internal Medicine
PROC: 4A033R1 Measurement of Arterial Saturation, Peripheral, Percutaneous Approach (ICD-10-PCS; principal; 2018-07-31)
DX: K72.90 Hepatic failure, unspecified without coma (principal); J96.01 Acute respiratory failure with hypoxia; E87.0 Hyperosmolality and hypernatremia; F10.10 Alcohol abuse, uncomplicated; G40.909 Epilepsy, unspecified, not intractable, without status epilepticus; E87.6 Hypokalemia; Y90.9 Presence of alcohol in blood, level not specified; K76.6 Portal hypertension; I27.20 Pulmonary hypertension, unspecified; R54 Age-related physical debility; K70.30 Alcoholic cirrhosis of liver without ascites; F17.210 Nicotine dependence, cigarettes, uncomplicated; K21.9 Gastro-esophageal reflux disease without esophagitis; D69.59 Other secondary thrombocytopenia; Z90.710 Acquired absence of both cervix and uterus; Z87.898 Personal history of other specified conditions; Z82.49 Family history of ischemic heart disease and other diseases of the circulatory system; Z79.82 Long term (current) use of aspirin; Z79.899 Other long term (current) drug therapy; Z71.6 Tobacco abuse counseling; Z86.73 Personal history of transient ischemic attack (TIA), and cerebral infarction without residual deficits
CPT/HCPCS: 36415; 36600; 70450; 71045; 71250; 78582; 80048; 80053; 80307; 80320; 81001; 82140; 82550; 82553; 82803; 82962; 83036; 84439; 84443; 84484; 85007; 85025; 85027; 85610; 85730; 93005; 93010; 93306; 93970; 94640; 94760; 96374; G0378; A9540; A9558; G0480; J1170; J1644; J1940; J2060; J3246; J3480; J7030; J7042; J7070

== ENCOUNTER 2018-09-20 16:55 | Inpatient (IN) | payer MEDICAID, OTHER ==
--- NOTE | 2018-09-20 17:50 | Emergency Department Report ---
ED GI Bleed HPI - General Chief complaint: GI Bleed Stated complaint: BLOOD IN STOOL Time Seen by Provider: 09/20/18 17:34 Source: patient, EMS, RN notes reviewed, old records reviewed Mode of arrival: Stretcher Limitations: Other - History of Present Illness Initial comments: 62-year-old female with a past medical history of dementia, hypertension, alc ohol abuse, liver cirrhosis, history of hepatic encephalopathy, seizures, and brain aneurysm, brain injury, and pancytopenia presents to the hospital with one episode of bloody dark red stool this a.m. as per rn intensive care unit. Patient is oriented to self and place but not year. She does not know last here today and denies any complaints and states she feels good. As per caregiver notes patient has also had some increased lethargy over the last few days. Severity scale (0 -10): 0 - Related Data Home Medications Medication Instructions Recorded Confirmed Last Taken Folic Acid [Folvite] 1 mg PO QDAY 11/02/13 07/29/18 06/22/17 Multivitamin [Multi-Vitamin Daily] 1 each PO DAILY 11/02/13 07/29/18 06/22/17 Aspirin [Aspirin BABY CHEW TAB] 1 tab PO DAILY 05/10/14 07/29/18 06/22/17 Furosemide [Lasix TAB] 20 mg PO QDAY 08/11/17 07/29/18 Unknown Previous Rx's Medication Instructions Recorded Last Taken Type Famotidine [Pepcid] 40 mg PO QHS #30 tablet 08/16/17 Unknown Rx Lactulose [Cephulac] 30 gm PO TID #900 oral.liqd 08/16/17 Unknown Rx Levothyroxine [Synthroid] 75 mcg PO DAILY@0600 #30 tablet 08/16/17 Unknown Rx Plavix 75 mg PO DAILY #30 08/16/17 Unknown Rx Propranolol LA [Inderal LA] 60 mg PO QDAY #30 capsule 08/16/17 Unknown Rx Thiamine [Vitamin B-1] 100 mg PO QDAY #30 tablet 08/16/17 Unknown Rx lamoTRIgine [LaMICtal] 25 mg PO BID #50 tablet 08/16/17 Unknown Rx levETIRAcetam [Keppra TAB] 1,500 mg PO BID #60 tablet 08/16/17 Unknown Rx traZODone [Desyrel] 50 mg PO QHS PRN #30 tablet 08/16/17 Unknown Rx Rifaximin [Xifaxan] 550 mg PO BID #60 tablet 07/30/18 Unknown Rx Spironolactone [Aldactone] 50 mg PO QDAY #30 tablet 07/30/18 Unknown Rx ALBUTEROL NEB's [Proventil 0.083% 2.5 mg IH Q6HRT PRN #90 nebu 08/04/18 Unknown Rx NEBS] Ipratropium/Albuterol Sulfate 1 ampul IH TIDRT #90 ampul.neb 08/04/18 Unknown Rx [DUONEB *Not for PRN Use*] Midodrine [Proamatine] 5 mg PO TID@0800,1200,1600 #90 08/04/18 Unknown Rx tablet Allergies Allergy/AdvReac Type Severity Reaction Status Date / Time No Known Allergies Allergy Verified 09/20/18 17:09 ED Review of Systems ROS: Stated complaint: BLOOD IN STOOL Other details as noted in HPI Comment: All other systems reviewed and negative ED Past Medical Hx - Past Medical History Previous Medical History?: Yes Hx Hypertension: Yes Hx CVA: Yes () Hx Congestive Heart Failure: No Hx Diabetes: No Hx GERD: Yes Hx Liver Disease: Yes Hx Sickle Cell Disease: No Hx Arthritis: Yes Hx Seizures: Yes Hx Psychiatric Treatment: Yes (bipolar) Hx Asthma: No Hx COPD: No Hx Dementia: Yes Additional medical history: Thrombocytopenia, Alcohol- induced persisting dementia, anneurysm x2, ETOH abuse, unspecified brain imjury - Surgical History Additional Surgical History: Brain aneurysm x 2Hysterectomy 11/21/13 - Social History Smoking Status: Never Smoker - Medications Home Medications: Home Medications Medication Instructions Recorded Confirmed Last Taken Type Folic Acid [Folvite] 1 mg PO QDAY 11/02/13 07/29/18 06/22/17 History Multivitamin [Multi-Vitamin Daily] 1 each PO DAILY 11/02/13 07/29/18 06/22/17 History Aspirin [Aspirin BABY CHEW TAB] 1 tab PO DAILY 05/10/14 07/29/18 06/22/17 History Furosemide [Lasix TAB] 20 mg PO QDAY 08/11/17 07/29/18 Unknown History Famotidine [Pepcid] 40 mg PO QHS #30 tablet 08/16/17 07/29/18 Unknown Rx Lactulose [Cephulac] 30 gm PO TID #900 oral.liqd 08/16/17 07/29/18 Unknown Rx Levothyroxine [Synthroid] 75 mcg PO DAILY@0600 #30 tablet 08/16/17 07/29/18 Unknown Rx Plavix 75 mg PO DAILY #30 08/16/17 07/29/18 Unknown Rx Propranolol LA [Inderal LA] 60 mg PO QDAY #30 capsule 08/16/17 07/29/18 Unknown Rx Thiamine [Vitamin B-1] 100 mg PO QDAY #30 tablet 08/16/17 07/29/18 Unknown Rx lamoTRIgine [LaMICtal] 25 mg PO BID #50 tablet 08/16/17 07/29/18 Unknown Rx levETIRAcetam [Keppra TAB] 1,500 mg PO BID #60 tablet 08/16/17 07/29/18 Unknown Rx traZODone [Desyrel] 50 mg PO QHS PRN #30 tablet 08/16/17 07/29/18 Unknown Rx Rifaximin [Xifaxan] 550 mg PO BID #60 tablet 07/30/18 Unknown Rx Spironolactone [Aldactone] 50 mg PO QDAY #30 tablet 07/30/18 Unknown Rx ALBUTEROL NEB's [Proventil 0.083% 2.5 mg IH Q6HRT PRN #90 nebu 08/04/18 Unknown Rx NEBS] Ipratropium/Albuterol Sulfate 1 ampul IH TIDRT #90 ampul.neb 08/04/18 Unknown Rx [DUONEB *Not for PRN Use*] Midodrine [Proamatine] 5 mg PO TID@0800,1200,1600 #90 08/04/18 Unknown Rx tablet ED Physical Exam - General Limitations: Other - Other Other exam information: General: No limitations, patient is alert in no acute distress Head exam: Atraumatic, normocephalic Eyes exam: Normal appearance, pupils equal reactive to light, extraocular movements intact ENT: Moist mucous membrane, normal oropharynx Neck exam: Normal inspection, full range of motion, no meningismus nontender Respiratory exam: Very mild end expiratory wheezing, no tachypnea or accessory muscle use Cardiovascular: Normal rate and rhythm, normal heart sounds Abdomen: Soft, nondistended, and nontender, with normal bowel sounds, no rebound, or guarding Rectal: No external lesions, lack positive brown bloody stool on digital rectal exam Extremity: Full range of motion normal inspection no deformity Back: Normal Inspection, full range of motion, no tenderness Neurologic: Alert, somewhat slow speech, oriented x2, cranial nerves intact, no motor or sensory deficit Psychiatric: normal affect, normal mood Skin: Warm, dry, intact ED Course Vital Signs 09/20/18 09/20/18 09/20/18 17:25 18:11 18:15 Temperature 98.8 F Pulse Rate 53 L 53 L Respiratory 12 14 14 Rate Blood Pressure 131/67 117/59 [Right] O2 Sat by Pulse 97 97 96 Oximetry - Consultations Consultation #1: 09/20/18 19:16 case d/w Dr Jazzy MCNEILL, will consult ED Medical Decision Making - Lab Data Result diagrams: 09/20/18 17:46 09/20/18 17:46 Lab Results 09/20/18 09/20/18 09/20/18 Range/Units 17:46 17:46 17:46 WBC 4.9 (4.5-11.0) K/mm3 RBC 4.36 (3.65-5.03) M/mm3 Hgb 13.0 (10.1-14.3) gm/dl Hct 38.8 (30.3-42.9) % MCV 89 (79-97) fl MCH 30 (28-32) pg MCHC 34 (30-34) % RDW 19.8 H (13.2-15.2) % Plt Count 160 (140-440) K/mm3 Jerauld % (Auto) Director Of [employer]orships PT (12.2-14.9) Sec. INR (0.87-1.13) APTT (24.2-36.6) Sec. Sodium 142 (137-145) mmol/L Potassium 3.9 (3.6-5.0) mmol/L Chloride 106.1 (98-107) mmol/L Carbon Dioxide 23 (22-30) mmol/L Anion Gap 17 mmol/L BUN 11 (7-17) mg/dL Creatinine 0.6 L (0.7-1.2) mg/dL Estimated GFR > 60 ml/min BUN/Creatinine Ratio 18 % Glucose 98 (65-100) mg/dL Calcium 9.0 (8.4-10.2) mg/dL Total Bilirubin 1.20 (0.1-1.2) mg/dL AST 25 (5-40) units/L ALT 14 (7-56) units/L Alkaline Phosphatase 87 (35-129) units/L Ammonia (25-60) umol/L Total Protein 6.7 (6.3-8.2) g/dL Albumin 3.7 L (3.9-5) g/dL Albumin/Globulin Ratio 1.2 % Blood Type B POSITIVE Antibody Screen Negative 09/20/18 09/20/18 Range/Units 17:54 17:55 WBC (4.5-11.0) K/mm3 RBC (3.65-5.03) M/mm3 Hgb (10.1-14.3) gm/dl Hct (30.3-42.9) % MCV (79-97) fl MCH (28-32) pg MCHC (30-34) % RDW (13.2-15.2) % Plt Count (140-440) K/mm3 Jerauld % (Auto) PT 17.5 H (12.2-14.9) Sec. INR 1.35 H (0.87-1.13) APTT 30.5 (24.2-36.6) Sec. Sodium (137-145) mmol/L Potassium (3.6-5.0) mmol/L Chloride (98-107) mmol/L Carbon Dioxide (22-30) mmol/L Anion Gap mmol/L BUN (7-17) mg/dL Creatinine (0.7-1.2) mg/dL Estimated GFR ml/min BUN/Creatinine Ratio % Glucose (65-100) mg/dL Calcium (8.4-10.2) mg/dL Total Bilirubin (0.1-1.2) mg/dL AST (5-40) units/L ALT (7-56) units/L Alkaline Phosphatase (35-129) units/L Ammonia 88.0 H (25-60) umol/L Total Protein (6.3-8.2) g/dL Albumin (3.9-5) g/dL Albumin/Globulin Ratio % Blood Type Antibody Screen - Medical Decision Making guaic positive bloody stools h/h plt normal + hepatic encephalopathy: lactulose ordered - Differential Diagnosis coagulopathy, varices, PUD, hemorrhoids, anemia, hepatic encephalopathy Critical Care Time: No Critical care attestation.: If time is entered above; I have spent that time in minutes in the direct care of this critically ill patient, excluding procedure time. ED Disposition Clinical Impression: Rectal bleed, Hepatic encephalopathy syndrome, Cirrhosis, alcoholic Disposition: OP ADMIT IP TO THIS HOSP Is pt being admited?: Yes Condition: Stable Time of Disposition: 19:19 (DR Eldridge/hosp)
[2018-09-20 18:21] LABS: Hematocrit 38.8 % (30.3-42.9); Mean Corpuscular HGB Conc 34 % (30-34); Mean Corpuscular Volume 89 fl (79-97); Platelet Count 160 K/mm3 (140-440); Red Blood Count 4.36 M/mm3 (3.65-5.03); Red Cell Distribution Width 19.8 % (13.2-15.2)
[2018-09-20 18:33] LABS: INR 1.35 (0.87-1.13)
[2018-09-20 18:34] LABS: Partial Thromboplastin Time 30.5 Sec. (24.2-36.6)
[2018-09-20 18:36] LABS: Alanine Aminotransferase 14 units/L (7-56); Albumin 3.7 g/dL (3.9-5); BUN/Creatinine Ratio 18; Blood Urea Nitrogen 11 mg/dL (7-17); Hemolysis Index 19
[2018-09-20] MEDS ORDERED: CEPHULAC PO ONE (18:37)
[2018-09-20] MEDS ORDERED: MORPHINE IV PRN (19:37)
[2018-09-20] MEDS ORDERED: ZOFRAN IV PRN (19:37)
--- NOTE | 2018-09-20 19:51 | History and Physical Report ---
History of Present Illness Date of examination: 09/20/18 Date of admission: 09/20/2018 Chief complaint: GI bleed History of present illness: Patient is a 62-year-old female with PMHx of CAD, hypertension, COPD, hypothyroidism, dementia, alcohol abuse, liver cirrhosis, h/o hepatic encephalopathy, seizures disorder, and brain aneurysm, brain injury, who was brought to the ER by EMS for complaints of bloody dark red stool this morning. Pt's patient care reported bloody stool per rectum and increased lethargy over the last few days. Patient is lethargic, disoriented and has poor memory, she is unable to provide any medical history. In the ER, her ammonia level was 88, pt is admitted for further evaluation and treatment. Past History Past Medical History: COPD, hypertension, hypothyroidism, liver disease, seizures Social history: alcohol abuse Family history: no significant family history Medications and Allergies Allergies Allergy/AdvReac Type Severity Reaction Status Date / Time No Known Allergies Allergy Verified 09/20/18 17:09 Home Medications Medication Instructions Recorded Confirmed Last Taken Type Folic Acid [Folvite] 1 mg PO QDAY 11/02/13 07/29/18 06/22/17 History Multivitamin [Multi-Vitamin Daily] 1 each PO DAILY 11/02/13 07/29/18 06/22/17 History Aspirin [Aspirin BABY CHEW TAB] 1 tab PO DAILY 05/10/14 07/29/18 06/22/17 History Furosemide [Lasix TAB] 20 mg PO QDAY 08/11/17 07/29/18 Unknown History Famotidine [Pepcid] 40 mg PO QHS #30 tablet 08/16/17 07/29/18 Unknown Rx Lactulose [Cephulac] 30 gm PO TID #900 oral.liqd 08/16/17 07/29/18 Unknown Rx Levothyroxine [Synthroid] 75 mcg PO DAILY@0600 #30 tablet 08/16/17 07/29/18 Unknown Rx Plavix 75 mg PO DAILY #30 08/16/17 07/29/18 Unknown Rx Propranolol LA [Inderal LA] 60 mg PO QDAY #30 capsule 08/16/17 07/29/18 Unknown Rx Thiamine [Vitamin B-1] 100 mg PO QDAY #30 tablet 08/16/17 07/29/18 Unknown Rx lamoTRIgine [LaMICtal] 25 mg PO BID #50 tablet 08/16/17 07/29/18 Unknown Rx levETIRAcetam [Keppra TAB] 1,500 mg PO BID #60 tablet 08/16/17 07/29/18 Unknown Rx traZODone [Desyrel] 50 mg PO QHS PRN #30 tablet 08/16/17 07/29/18 Unknown Rx Rifaximin [Xifaxan] 550 mg PO BID #60 tablet 07/30/18 Unknown Rx Spironolactone [Aldactone] 50 mg PO QDAY #30 tablet 07/30/18 Unknown Rx ALBUTEROL NEB's [Proventil 0.083% 2.5 mg IH Q6HRT PRN #90 nebu 08/04/18 Unknown Rx NEBS] Ipratropium/Albuterol Sulfate 1 ampul IH TIDRT #90 ampul.neb 08/04/18 Unknown Rx [DUONEB *Not for PRN Use*] Midodrine [Proamatine] 5 mg PO TID@0800,1200,1600 #90 08/04/18 Unknown Rx tablet Active Meds: Active Medications Acetaminophen (Tylenol) 650 mg PO Q4H PRN PRN Reason: Pain MILD(1-3)/Fever >100.5/PÉREZ Albuterol/Ipratropium (Duoneb *Not For Prn Use*) 1 ampul IH Q6HRT [facility] Sodium Chloride (Nacl 0.9% 1000 Ml) 1,000 mls @ 75 mls/hr IV DIRECT HUONG Pantoprazole Sodium 80 mg/ (Sodium Chloride) 100 mls @ 10 mls/hr IV DIRECT HUONG Morphine Sulfate (Morphine) 2 mg IV Q4H PRN PRN Reason: Pain, Moderate (4-6) Ondansetron HCl (Zofran) 4 mg IV Q8H PRN PRN Reason: Nausea And Vomiting Sodium Chloride (Sodium Chloride Flush Syringe 10 Ml) 10 ml IV BID [facility] Review of Systems ROS unobtainable: due to endotracheal tube (dementia, lethargic) Exam - Constitutional Vitals: Temp Pulse Resp BP Pulse Ox 98.8 F 53 L 14 117/59 96 09/20/18 17:25 09/20/18 18:15 09/20/18 18:15 09/20/18 18:15 09/20/18 18:15 General appearance: Present: no acute distress - EENT Eyes: Present: PERRL ENT: dentition normal - Neck Neck: Present: supple - Respiratory Respiratory effort: normal Respiratory: bilateral: CTA - Cardiovascular Rhythm: regular - Extremities Extremities: pulses symmetrical, No edema Peripheral Pulses: within normal limits - Abdominal General gastrointestinal: Present: soft, non-tender, non-distended Female genitourinary: Present: deferred, normal - Rectal Rectal Exam: deferred - Integumentary Integumentary: Present: warm, dry - Musculoskeletal Musculoskeletal: strength equal bilaterally - Psychiatric Psychiatric: cooperative - Neurologic Neurologic: moves all extremities, other (unable to assess gait) Results - Labs CBC & Chem 7: 09/20/18 17:46 09/20/18 17:46 Labs: Laboratory Last Values WBC 4.9 K/mm3 (4.5-11.0) 09/20/18 17:46 RBC 4.36 M/mm3 (3.65-5.03) 09/20/18 17:46 Hgb 13.0 gm/dl (10.1-14.3) 09/20/18 17:46 Hct 38.8 % (30.3-42.9) 09/20/18 17:46 MCV 89 fl (79-97) 09/20/18 17:46 MCH 30 pg (28-32) 09/20/18 17:46 MCHC 34 % (30-34) 09/20/18 17:46 RDW 19.8 % (13.2-15.2) H 09/20/18 17:46 Plt Count 160 K/mm3 (140-440) 09/20/18 17:46 Bailey % (Auto) Clinical Secretary 09/20/18 17:46 PT 17.5 Sec. (12.2-14.9) H 09/20/18 17:54 INR 1.35 (0.87-1.13) H 09/20/18 17:54 APTT 30.5 Sec. (24.2-36.6) 09/20/18 17:54 Sodium 142 mmol/L (137-145) 09/20/18 17:46 Potassium 3.9 mmol/L (3.6-5.0) 09/20/18 17:46 Chloride 106.1 mmol/L (98-107) 09/20/18 17:46 Carbon Dioxide 23 mmol/L (22-30) 09/20/18 17:46 17 mmol/L 09/20/18 17:46 BUN 11 mg/dL (7-17) 09/20/18 17:46 0.6 mg/dL (0.7-1.2) L 09/20/18 17:46 Estimated GFR > 60 ml/min 09/20/18 17:46 18 % 09/20/18 17:46 Glucose 98 mg/dL (65-100) 09/20/18 17:46 Calcium 9.0 mg/dL (8.4-10.2) 09/20/18 17:46 1.20 mg/dL (0.1-1.2) 09/20/18 17:46 AST 25 units/L (5-40) 09/20/18 17:46 ALT 14 units/L (7-56) 09/20/18 17:46 87 units/L (35-129) 09/20/18 17:46 88.0 umol/L (25-60) H 09/20/18 17:55 6.7 g/dL (6.3-8.2) 09/20/18 17:46 3.7 g/dL (3.9-5) L 09/20/18 17:46 1.2 % 09/20/18 17:46 Blood Type B POSITIVE 09/20/18 17:46 Antibody Screen Negative 09/20/18 17:46 Assessment and Plan Assessment and plan: 1. Acute GIB (etiology unclear) 2. Hypertension 3. H/o CAD 4. H/o alcohol abuse 5. Liver cirrhosis (due alcohol use) 6. Hepatic encephalopathy (ammonia 88) 7. H/o seizures disorder 8. H/o brain aneurysm 9. Hypothyroidism 10. H/o dementia Plan: Monitor H&H Q6hrs x3 Consult GI for eval Keep NPO until seen by GI Hold all PO meds until ok by GI IVF for hydration Protonix drip Further plan per GI recommendations No DVT prophylasix due to bleeding Advance Directives: Yes VTE prophylaxis?: Mechanical Plan of care discussed with patient/family: Yes
[2018-09-20 19:56] LABS: Basophils % (Manual) 0 % (0.0-1.8); Total Cells Counted 100
[2018-09-20 19:57] LABS: Anisocytosis Few; Ovalocytes Few; Platelet Estimate Consistent w Auto; Poikilocytosis Few
[2018-09-20] MEDS ORDERED: PROTONIX 80 MG in NACL 0.9% 100 ML IV SCH (20:30)
[2018-09-20] MEDS: SODIUM CHLORIDE FLUSH SYRINGE 10 ML IV SCH (21:39)
[2018-09-20] MEDS: NACL 0.9% 1000 ML 1,000 ML IV SCH (22:41)
[2018-09-21] MEDS ORDERED: PROVENTIL IH PRN ×2 (00:39→07:40)
[2018-09-21 01:03] LABS: Hematocrit 38.3 % (30.3-42.9)
[2018-09-21] MEDS: DUONEB *Not for PRN Use IH SCH ×4 (01:05→21:20)
[2018-09-21 05:34] LABS: Hematocrit 36.9 % (30.3-42.9); Hemoglobin 12.9 gm/dl (10.1-14.3)
[2018-09-21] MEDS ORDERED: DUONEB *Not for PRN Use IH SCH (08:00)
[2018-09-21] MEDS: BABY ASPIRIN PO SCH (09:52)
[2018-09-21] MEDS: LASIX PO SCH (09:52)
[2018-09-21] MEDS: CEPHULAC PO SCH ×3 (09:52→20:43)
[2018-09-21] MEDS: FOLVITE PO SCH (09:52)
[2018-09-21] MEDS: SODIUM CHLORIDE FLUSH SYRINGE 10 ML IV SCH ×2 (09:53→21:10)
--- NOTE | 2018-09-21 13:05 | Gastroenterology Consultation ---
<ЕЛЕНА SANTA - Last Filed: 09/21/18 15:33> History of Present Illness - Reason for Consult Consult date: 09/21/18 rectal bleeding, cirrhosis Requesting physician: KAITLYN LE - History of Present Illness Patient is a 62 y/o female wtih pMH of CAD, HTN, COPD, hypothyroidism, dementia, cirrhosis, hepatic encephalopathy, seizure disorder, brain aneurysm/injury who was brought to ED with c/o rectal bleeding and AMS. Upon admisstion, ammonia was found to be elevated at 88. GI has been consulted for rectal bleeding and cirrhosis. Patient is well known to our service and is followed by Dr. Barajas. She has a hx of alcoholic cirrhosis with varices and hepatic encephalopathy. She is on lactulose, xifaxan, propranolol, aldactone, and lasix at home for her cirrhosis given to her by her caregiver (in [facility]). She was last seen on our clinic on 08/17/18 with c/o intermittent rectal bleeding with bright red blood (spoke with caregiver over the phone this am that confirmed intermittent BRBPR following BMs for the past few month) with an outpatient EGD/colonoscopy scheduled next month. This morning patient was sitting up in bed eating breakfast w/o acute distress. Oriented to self. No active signs of bleeding overnight or this am per nursing. Denies fever, abd pain, wt loss, N/V, jaundice, hematemesis, melena, diarrhea, or constipation. Takes Plavix at home for hx of TIA. Last EGD 06/23/17 that showed 0-1+ distal esophageal varices and mild portal hypertension gastropathy. Past History Past Medical History: other (as per HPI) Past Surgical History: Other (brain surgery) Social history: other (former alcohol abuse) Family history: no significant family history Medications and Allergies Allergies Allergy/AdvReac Type Severity Reaction Status Date / Time No Known Allergies Allergy Verified 09/20/18 17:09 Home Medications Medication Instructions Recorded Confirmed Last Taken Type Folic Acid [Folvite] 1 mg PO QDAY 11/02/13 07/29/18 06/22/17 History Multivitamin [Multi-Vitamin Daily] 1 each PO DAILY 11/02/13 07/29/18 06/22/17 History Aspirin [Aspirin BABY CHEW TAB] 1 tab PO DAILY 05/10/14 07/29/18 06/22/17 History Furosemide [Lasix TAB] 20 mg PO QDAY 08/11/17 07/29/18 Unknown History Famotidine [Pepcid] 40 mg PO QHS #30 tablet 08/16/17 07/29/18 Unknown Rx Lactulose [Cephulac] 30 gm PO TID #900 oral.liqd 08/16/17 07/29/18 Unknown Rx Levothyroxine [Synthroid] 75 mcg PO DAILY@0600 #30 tablet 08/16/17 07/29/18 Unknown Rx Plavix 75 mg PO DAILY #30 08/16/17 07/29/18 Unknown Rx Propranolol LA [Inderal LA] 60 mg PO QDAY #30 capsule 08/16/17 07/29/18 Unknown Rx Thiamine [Vitamin B-1] 100 mg PO QDAY #30 tablet 08/16/17 07/29/18 Unknown Rx lamoTRIgine [LaMICtal] 25 mg PO BID #50 tablet 08/16/17 07/29/18 Unknown Rx levETIRAcetam [Keppra TAB] 1,500 mg PO BID #60 tablet 08/16/17 07/29/18 Unknown Rx traZODone [Desyrel] 50 mg PO QHS PRN #30 tablet 08/16/17 07/29/18 Unknown Rx Rifaximin [Xifaxan] 550 mg PO BID #60 tablet 07/30/18 Unknown Rx Spironolactone [Aldactone] 50 mg PO QDAY #30 tablet 07/30/18 Unknown Rx ALBUTEROL NEB's [Proventil 0.083% 2.5 mg IH Q6HRT PRN #90 nebu 08/04/18 Unknown Rx NEBS] Ipratropium/Albuterol Sulfate 1 ampul IH TIDRT #90 ampul.neb 08/04/18 Unknown Rx [DUONEB *Not for PRN Use*] Midodrine [Proamatine] 5 mg PO TID@0800,1200,1600 #90 08/04/18 Unknown Rx tablet Active Meds: Active Medications Acetaminophen (Tylenol) 650 mg PO Q4H PRN PRN Reason: Pain MILD(1-3)/Fever >100.5/PÉREZ Albuterol (Proventil) 2.5 mg IH Q4HRT PRN PRN Reason: Shortness Of Breath Albuterol/Ipratropium (Duoneb *Not For Prn Use*) 1 ampul IH BIDRT [facility] Aspirin (Baby Aspirin) 81 mg PO DAILY [facility] Last Admin: 09/21/18 09:52 Dose: 81 mg Documented by: Folic Acid (Folvite) 1 mg PO QDAY [facility] Last Admin: 09/21/18 09:52 Dose: 1 mg Documented by: Furosemide (Lasix) 20 mg PO QDAY [facility] Last Admin: 09/21/18 09:52 Dose: 20 mg Documented by: Sodium Chloride (Nacl 0.9% 1000 Ml) 1,000 mls @ 75 mls/hr IV DIRECT [facility] Last Admin: 09/20/18 22:41 Dose: 75 mls/hr Documented by: Pantoprazole Sodium 80 mg/ (Sodium Chloride) 100 mls @ 10 mls/hr IV DIRECT [facility] Last Admin: 09/21/18 00:23 Dose: 8 mg/hr, 10 mls/hr Documented by: Lactulose (Cephulac) 30 gm PO TID [facility] Last Admin: 09/21/18 09:52 Dose: 30 gm Documented by: Morphine Sulfate (Morphine) 2 mg IV Q4H PRN PRN Reason: Pain, Moderate (4-6) Ondansetron HCl (Zofran) 4 mg IV Q8H PRN PRN Reason: Nausea And Vomiting Sodium Chloride (Sodium Chloride Flush Syringe 10 Ml) 10 ml IV BID [facility] Last Admin: 09/21/18 09:53 Dose: 10 ml Documented by: medications reviewed/updated as required Review of Systems - Review of Systems All systems: negative Gastrointestinal: BRBPR, no abdominal pain, no nausea, no vomiting, no hematemesis, no melena Exam - Constitutional Vital Signs: Temp Pulse Resp BP Pulse Ox 98.1 F 61 16 93/55 92 09/21/18 05:39 09/21/18 07:43 09/21/18 07:43 09/21/18 05:39 09/21/18 07:37 General appearance: no acute distress - Respiratory Respiratory: bilateral: CTA - Cardiovascular Rhythm: regular - Gastrointestinal General gastrointestinal: Present: soft, non-tender, non-distended, normal bowel sounds - Neurologic Neurological: oriented to person - Labs CBC & Chem 7: 09/21/18 13:32 09/20/18 17:46 Lab Results: Laboratory Results - last 24 hr 09/20/18 09/20/18 09/20/18 17:46 17:46 17:46 WBC 4.9 RBC 4.36 Hgb 13.0 Hct 38.8 MCV 89 MCH 30 MCHC 34 RDW 19.8 H Plt Count 160 [place] % (Auto) Egg Pasteurizer Add Manual Diff Complete Total Counted 100 Seg Neuts % (Manual) 62.0 Band Neutrophils % 0 Lymphocytes % (Manual) 28.0 Reactive Lymphs % (Man) 0 Monocytes % (Manual) 7.0 Eosinophils % (Manual) 3.0 Basophils % (Manual) 0 Metamyelocytes % 0 Myelocytes % 0 Promyelocytes % 0 Blast Cells % 0 Nucleated RBC % Not Reportable Seg Neutrophils # Man 3.0 Band Neutrophils # 0.0 Lymphocytes # (Manual) 1.4 Abs React Lymphs (Man) 0.0 Monocytes # (Manual) 0.3 Eosinophils # (Manual) 0.1 Basophils # (Manual) 0.0 Metamyelocytes # 0.0 Myelocytes # 0.0 Promyelocytes # 0.0 Blast Cells # 0.0 WBC Morphology Not Reportable Hypersegmented Neuts Not Reportable Hyposegmented Neuts Not Reportable Hypogranular Neuts Not Reportable Smudge Cells Not Reportable Toxic Granulation Not Reportable Toxic Vacuolation Not Reportable Dohle Bodies Not Reportable Pelger-Huet Anomaly Not Reportable Lamine Rods Not Reportable Platelet Estimate Consistent w auto Clumped Platelets Not Reportable Plt Clumps, EDTA Not Reportable Large Platelets Not Reportable Giant Platelets Not Reportable Platelet Satelliting Not Reportable Plt Morphology Comment Not Reportable RBC Morphology Not Reportable Dimorphic RBCs Not Reportable Polychromasia Not Reportable Hypochromasia Not Reportable Poikilocytosis Few Anisocytosis Few Microcytosis Not Reportable Macrocytosis Not Reportable Spherocytes Not Reportable Pappenheimer Bodies Not Reportable Sickle Cells Not Reportable Target Cells Not Reportable Tear Drop Cells Not Reportable Ovalocytes Few Helmet Cells Not Reportable Pool-[place] Bodies Not Reportable [place] Rings Not Reportable [place] Cells Not Reportable Bite Cells Not Reportable Crenated Cell Not Reportable Elliptocytes Not Reportable Acanthocytes (Spur) Not Reportable Rouleaux Not Reportable Hemoglobin C Crystals Not Reportable Schistocytes Not Reportable Malaria parasites Not Reportable Brock Bodies Not Reportable Hem Pathologist Commnt No PT INR APTT Sodium 142 Potassium 3.9 Chloride 106.1 Carbon Dioxide 23 Anion Gap 17 BUN 11 Creatinine 0.6 L Estimated GFR > 60 BUN/Creatinine Ratio 18 Glucose 98 Calcium 9.0 Total Bilirubin 1.20 AST 25 ALT 14 Alkaline Phosphatase 87 Ammonia Total Protein 6.7 Albumin 3.7 L Albumin/Globulin Ratio 1.2 Blood Type B POSITIVE Antibody Screen Negative 09/20/18 09/20/18 09/21/18 17:54 17:55 00:22 WBC RBC Hgb 13.0 Hct 38.3 MCV MCH MCHC RDW Plt Count [place] % (Auto) Add Manual Diff Total Counted Seg Neuts % (Manual) Band Neutrophils % Lymphocytes % (Manual) Reactive Lymphs % (Man) Monocytes % (Manual) Eosinophils % (Manual) Basophils % (Manual) Metamyelocytes % Myelocytes % Promyelocytes % Blast Cells % Nucleated RBC % Seg Neutrophils # Man Band Neutrophils # Lymphocytes # (Manual) Abs React Lymphs (Man) Monocytes # (Manual) Eosinophils # (Manual) Basophils # (Manual) Metamyelocytes # Myelocytes # Promyelocytes # Blast Cells # WBC Morphology Hypersegmented Neuts Hyposegmented Neuts Hypogranular Neuts Smudge Cells Toxic Granulation Toxic Vacuolation Dohle Bodies Pelger-Huet Anomaly Lamine Rods Platelet Estimate Clumped Platelets Plt Clumps, EDTA Large Platelets Giant Platelets Platelet Satelliting Plt Morphology Comment RBC Morphology Dimorphic RBCs Polychromasia Hypochromasia Poikilocytosis Anisocytosis Microcytosis Macrocytosis Spherocytes Pappenheimer Bodies Sickle Cells Target Cells Tear Drop Cells Ovalocytes Helmet Cells Pool-[place] Bodies [place] Rings Terry Cells Bite Cells Crenated Cell Elliptocytes Acanthocytes (Spur) Rouleaux Hemoglobin C Crystals Schistocytes Malaria parasites Brock Bodies Hem Pathologist Commnt PT 17.5 H INR 1.35 H APTT 30.5 Sodium Potassium Chloride Carbon Dioxide Anion Gap BUN Creatinine Estimated GFR BUN/Creatinine Ratio Glucose Calcium Total Bilirubin AST ALT Alkaline Phosphatase Ammonia 88.0 H Total Protein Albumin Albumin/Globulin Ratio Blood Type Antibody Screen 09/21/18 04:45 WBC RBC Hgb 12.9 Hct 36.9 MCV MCH MCHC RDW Plt Count [place] % (Auto) Add Manual Diff Total Counted Seg Neuts % (Manual) Band Neutrophils % Lymphocytes % (Manual) Reactive Lymphs % (Man) Monocytes % (Manual) Eosinophils % (Manual) Basophils % (Manual) Metamyelocytes % Myelocytes % Promyelocytes % Blast Cells % Nucleated RBC % Seg Neutrophils # Man Band Neutrophils # Lymphocytes # (Manual) Abs React Lymphs (Man) Monocytes # (Manual) Eosinophils # (Manual) Basophils # (Manual) Metamyelocytes # Myelocytes # Promyelocytes # Blast Cells # WBC Morphology Hypersegmented Neuts Hyposegmented Neuts Hypogranular Neuts Smudge Cells Toxic Granulation Toxic Vacuolation Dohle Bodies Pelger-Huet Anomaly Lamine Rods Platelet Estimate Clumped Platelets Plt Clumps, EDTA Large Platelets Giant Platelets Platelet Satelliting Plt Morphology Comment RBC Morphology Dimorphic RBCs Polychromasia Hypochromasia Poikilocytosis Anisocytosis Microcytosis Macrocytosis Spherocytes Pappenheimer Bodies Sickle Cells Target Cells Tear Drop Cells Ovalocytes Helmet Cells Pool-[place] Bodies [place] Rings [place] Cells Bite Cells Crenated Cell Elliptocytes Acanthocytes (Spur) Rouleaux Hemoglobin C Crystals Schistocytes Malaria parasites Brock Bodies Hem Pathologist Commnt PT INR APTT Sodium Potassium Chloride Carbon Dioxide Anion Gap BUN Creatinine Estimated GFR BUN/Creatinine Ratio Glucose Calcium Total Bilirubin AST ALT Alkaline Phosphatase Ammonia Total Protein Albumin Albumin/Globulin Ratio Blood Type Antibody Screen Assessment and Plan 1.H/o alcoholic cirrhosis with varices 2.hepatic encephalopathy 3.rectal bleeding (caregiver reports intermittent BRBPR following BMs x last few months) -afebrile -WBC WNL -H/H WNL (12.6/37.0)-stable -continue to monitor H/H and transfuse as needed -LFTs WNL -ammonia 88 on admission -etiology-patient has a hx of alcoholic cirrhosis 2/2 former ETOH abuse with varices and HE -clinically, patient is stable with encephalopathy improving. Denies abd pain, N/V, or active signs of bleeding. Tolerating diet. -no plan for scope at this time unless overt bleeding develops (scheduled for outpatient EGD/colonoscopy next month-10/[address] Barajas) -continue diuretics, xifaxan, and propranalol -will increase lactulose to TID (titrate to goal of BMs x 2-3/day) -continue PPI and supportive care -will follow <CRISELDA HELTON - Last Filed: 09/21/18 22:50> Medications and Allergies Active Meds: Active Medications Acetaminophen (Tylenol) 650 mg PO Q4H PRN PRN Reason: Pain MILD(1-3)/Fever >100.5/PÉREZ Albuterol (Proventil) 2.5 mg IH Q4HRT PRN PRN Reason: Shortness Of Breath Albuterol/Ipratropium (Duoneb *Not For Prn Use*) 1 ampul IH BIDRT [facility] Last Admin: 09/21/18 21:20 Dose: 1 ampul Documented by: Aspirin (Baby Aspirin) 81 mg PO DAILY [facility] Last Admin: 09/21/18 09:52 Dose: 81 mg Documented by: Folic Acid (Folvite) 1 mg PO QDAY [facility] Last Admin: 09/21/18 09:52 Dose: 1 mg Documented by: Furosemide (Lasix) 20 mg PO QDAY [facility] Last Admin: 09/21/18 09:52 Dose: 20 mg Documented by: Sodium Chloride (Nacl 0.9% 1000 Ml) 1,000 mls @ 75 mls/hr IV DIRECT [facility] Last Admin: 09/21/18 20:44 Dose: 75 mls/hr Documented by: Lactulose (Cephulac) 30 gm PO TID [facility] Last Admin: 09/21/18 20:43 Dose: 30 gm Documented by: Lamotrigine (Lamictal) 25 mg PO BID [facility] Last Admin: 09/21/18 18:48 Dose: 25 mg Documented by: Levetiracetam (Keppra) 1,500 mg PO BID [facility] Last Admin: 09/21/18 21:09 Dose: 1,500 mg Documented by: Levothyroxine Sodium (Synthroid) 75 mcg PO DAILY@0600 [facility] Midodrine (Proamatine) 5 mg PO TID@0800,1200,1600 [facility] Last Admin: 09/21/18 18:48 Dose: 5 mg Documented by: Morphine Sulfate (Morphine) 2 mg IV Q4H PRN PRN Reason: Pain, Moderate (4-6) Ondansetron HCl (Zofran) 4 mg IV Q8H PRN PRN Reason: Nausea And Vomiting Pantoprazole Sodium (Protonix) 40 mg IV BID [facility] Last Admin: 09/21/18 21:09 Dose: 40 mg Documented by: Rifaximin (Xifaxan) 550 mg PO BID [facility] Last Admin: 09/21/18 21:20 Dose: 550 mg Documented by: Sodium Chloride (Sodium Chloride Flush Syringe 10 Ml) 10 ml IV BID [facility] Last Admin: 09/21/18 21:10 Dose: 10 ml Documented by: Spironolactone (Aldactone) 50 mg PO QDAY [facility] Thiamine HCl (Vitamin B-1) 100 mg PO QDAY [facility] Trazodone HCl (Desyrel) 50 mg PO QHS PRN PRN Reason: Sleep Last Admin: 09/21/18 20:54 Dose: 50 mg Documented by: Exam - Constitutional Vital Signs: Temp Pulse Resp BP Pulse Ox 98.5 F 70 16 116/75 91 09/21/18 16:08 09/21/18 21:28 09/21/18 21:28 09/21/18 16:08 09/21/18 21:22 - Labs CBC & Chem 7: 09/21/18 13:32 09/20/18 17:46 Lab Results: Laboratory Results - last 24 hr 09/21/18 09/21/18 09/21/18 00:22 04:45 13:32 Hgb 13.0 12.9 12.6 Hct 38.3 36.9 37.0 Assessment and Plan Patient seen and examined. I have reviewed the advanced practitioner's evaluation, assessment, and plan, and agree with them. I note the following additions: patient encephalopathic this AM when seen , increasing lactulose and continue xifaxin and given stable hgb no need for urgent endoscopy especially as she is at increased risk for aspiration with a prep now that she is encephalopathic.
[2018-09-21 13:56] LABS: Hemoglobin 12.6 gm/dl (10.1-14.3)
--- NOTE | 2018-09-21 14:57 | Progress Note ---
Assessment and Plan / Acute GIB (etiology unclear) - Continue to monitor H&H, which is stable so far -GI consulted, no planned for endoscopy if H&H remains stable - Already has outpatient follow-up - Protonix drip, IVF for hydration /Acute on chronic encephalopathy, present on admission - Likely Hepatic encephalopathy (ammonia 88 on admission) - Continue lactulose, monitor response Other chronic issues: Hypertension H/o CAD H/o alcohol abuse Liver cirrhosis (due alcohol use) Hepatic encephalopathy (ammonia 88) H/o seizures disorder H/o brain aneurysm Hypothyroidism H/o dementia - cont home meds, supportive care, hold plavix - No heparin for DVT prophylasix due to bleeding, place on SCD Brief History: Patient is a 62-year-old female with PMHx of CAD, hypertension, COPD, hypothyroidism, dementia, alcohol abuse, liver cirrhosis, h/o hepatic encephalopathy, seizures disorder, and brain aneurysm, brain injury, who was br ought to the ER by EMS for complaints of bloody dark red stool in the morning. In the ER, her ammonia level was 88, pt is admitted for further evaluation and treatment. Hospitalist Physical exam: GENERAL: well-developed and well-nourished elderly WF lying on bed appeared to be in no discomfort. HEENT: Normocephalic. Atraumatic. No conjunctival congestion or icterus. Patient has moist mucous membranes. NECK: Supple. Trachea midline. CHEST/LUNGS: Clear to auscultated bilaterally, breathing nonlabored. No wheezes crackles or rhonchi. HEART/CARDIOVASCULAR: Regular in rate and rhythm. S1 and S2 positive. ABDOMEN: Abdomen is soft, nontender. Patient has normal bowel sounds. SKIN: There is no rash. Warm and dry. NEURO: No focal motor deficit. Follows command. MUSCULOSKELETAL: No joint effusion or tenderness. EXTRIMITY: No edema, no cyanosis or clubbing. PSYCH: Cooperative. Not oriented to place time and person Subjective Date of service: 09/21/18 Interval history: Patient seen and examined. Medical records and medication list reviewed. No acute event overnight noted by the RN. Patient denies any chest pain or difficulty breathing. Patient is unable to provide any history. Discussed plan of care at bedside with RN and GI. Objective - Constitutional Vitals: Vital Signs - 12hr 09/21/18 09/21/18 09/21/18 05:39 07:31 07:34 Temperature 98.1 F Pulse Rate 58 L Pulse Rate [ 62 Anterior Bilateral Throughout] Respiratory 18 Rate Respiratory 16 Rate [Anterior Bilateral Throughout] Blood Pressure 93/55 O2 Sat by Pulse 84 92 Oximetry 09/21/18 09/21/18 09/21/18 07:37 07:43 12:52 Temperature 98.4 F Pulse Rate 65 Pulse Rate [ 61 Anterior Bilateral Throughout] Respiratory 15 Rate Respiratory 16 Rate [Anterior Bilateral Throughout] Blood Pressure 104/62 O2 Sat by Pulse 92 91 Oximetry - Labs CBC & Chem 7: 09/21/18 13:32 09/20/18 17:46 Labs: Abnormal lab results 09/20/18 09/20/18 09/20/18 Range/Units 17:46 17:46 17:54 RDW 19.8 H (13.2-15.2) % PT 17.5 H (12.2-14.9) Sec. INR 1.35 H (0.87-1.13) Creatinine 0.6 L (0.7-1.2) mg/dL Ammonia (25-60) umol/L Albumin 3.7 L (3.9-5) g/dL 09/20/18 Range/Units 17:55 RDW (13.2-15.2) % PT (12.2-14.9) Sec. INR (0.87-1.13) Creatinine (0.7-1.2) mg/dL Ammonia 88.0 H (25-60) umol/L Albumin (3.9-5) g/dL
[2018-09-21] MEDS ORDERED: DESYREL PO PRN (15:02)
[2018-09-21] MEDS ORDERED: NON-FORMULARY (Levetiracetam [Keppra Tab] 1,500 MG) PO SCH (15:15)
[2018-09-21] MEDS: LaMICtal PO SCH (18:48)
[2018-09-21] MEDS: PROAMATINE PO SCH (18:48)
[2018-09-21] MEDS: NACL 0.9% 1000 ML 1,000 ML IV SCH (20:44)
[2018-09-21] MEDS: PROTONIX IV SCH (21:09)
[2018-09-21] MEDS: XIFAXAN PO SCH (21:20)
[2018-09-21] MEDS ORDERED: NON-FORMULARY (Famotidine [Pepcid] 40 MG) PO SCH (22:00)
[2018-09-21] MEDS ORDERED: KEPPRA PO SCH (22:00)
[2018-09-22] MEDS: SYNTHROID PO SCH (05:43)
[2018-09-22 06:45] LABS: Hematocrit 35.3 % (30.3-42.9)
[2018-09-22] MEDS: CEPHULAC PO SCH ×4 (08:00→22:33)
[2018-09-22] MEDS: DUONEB *Not for PRN Use IH SCH ×2 (08:09→20:29)
--- NOTE | 2018-09-22 09:59 | Gastroenterology Progress Note ---
<ЕЛЕНА SANTA - Last Filed: 09/22/18 09:50> Assessment and Plan 1.H/o alcoholic cirrhosis with varices 2.hepatic encephalopathy 3.rectal bleeding (caregiver reports intermittent BRBPR following BMs x last few months) -afebrile -WBC WNL -H/H WNL (12.0/35.6)-stable -continue to monitor H/H and transfuse as needed -LFTs WNL -ammonia 88 on admission-will order stat repeat ammonia this am -etiology-patient has a hx of alcoholic cirrhosis 2/2 former ETOH abuse with varices and HE -clinically, patient is w/o acute distress but encephalopathy is noted to be worse this am. Spoke with hospitalist with reports of patient refusing medications including lactulose yesterday. No evidence of abd pain, N/V, or active signs of bleeding. -abd U/S -stat ammonia level this am -recommend NGT placement for medications -no plan for scope at this time unless overt bleeding develops (scheduled for outpatient EGD/colonoscopy next month-10/[address] Baraajs) -continue PPI, diuretics, xifaxan, propranalol, and lactulose (if patient does not tolerate NG, give lactulose AL; titrate to goal of BMs x 2-3/day) -continue to trend labs and supportive care -will follow Subjective Date of service: 09/22/18 Principal diagnosis: rectal bleeding, cirrhosis Interval history: Patient w/o acute distress but noted worsened encephalpathy today upon exam. She is alert with eyes open but unable to communicate coherently/verbally. No active signs of bleeding overnight or this am per nursing. Objective - Constitutional Vitals: Temp Pulse Resp BP Pulse Ox 98.4 F 70 18 109/58 91 09/22/18 05:51 09/22/18 05:51 09/22/18 05:51 09/22/18 05:51 09/22/18 05:51 General appearance: no acute distress, other (lethargic) - Respiratory Respiratory: bilateral: CTA (anterior) - Cardiovascular Rhythm: regular - Gastrointestinal General gastrointestinal: Present: soft, non-distended, normal bowel sounds - Neurologic Neurological: disoriented - Labs CBC & Chem 7: 09/22/18 06:15 09/20/18 17:46 Labs: Laboratory Results - last 24 hr 09/21/18 09/22/18 13:32 06:15 Hgb 12.6 12.0 Hct 37.0 35.3 <CRISELDA HELTON - Last Filed: 09/22/18 23:12> Assessment and Plan Patient seen and examined. I have reviewed the advanced practitioner's evaluation, assessment, and plan, and agree with them. I note the following additions: patient with worsening encephalopathy on exam today; increase lactulose administration with lactulose enemas and chatman-culture to ensure no underlying infection causing the change in MS, as well as imaging to ensure no ascites with SBP as another potential source for acute change in MS Objective - Constitutional Vitals: Temp Pulse Resp BP Pulse Ox 98.3 F 88 18 127/72 95 09/22/18 17:37 09/22/18 20:37 09/22/18 20:37 09/22/18 17:37 09/22/18 20:37 - Labs CBC & Chem 7: 09/22/18 06:15 09/20/18 17:46 Labs: Laboratory Results - last 24 hr 09/22/18 09/22/18 09/22/18 06:15 12:16 17:20 Hgb 12.0 Hct 35.3 Ammonia 134.0 H Urine Color Yellow Urine Turbidity Clear Urine pH 6.0 Ur Specific [place] 1.011 Urine Protein <15 mg/dl Urine Glucose (UA) Neg Urine Ketones Neg Urine Blood Mod Urine Nitrite Pos Urine Bilirubin Neg Urine Urobilinogen < 2.0 Ur Leukocyte Esterase Tr Urine WBC (Auto) 1.0 Urine RBC (Auto) < 1.0 Urine Mucus Few
--- NOTE | 2018-09-22 11:11 | Ultrasound Report ---
ULTRASOUND ABDOMEN COMPLETE: TECHNIQUE: Transabdominal ultrasound with color Doppler interrogation. HISTORY: Cirrhosis. COMPARISON: CT abdomen pelvis with contrast dated 02/13/17. FINDINGS: LIVER: The liver is shrunken and cirrhotic with diffuse heterogeneity and surface nodularity. No obvious liver mass is demonstrated on ultrasound. BILIARY SYSTEM: The gallbladder is not clearly demonstrated. The gallbladder is likely contracted and contains small stones. PANCREAS: Normal. SPLEEN: 12.3 cm in length. No focal abnormality. KIDNEYS: Normal. AORTA/IVC: Normal. ASCITES: None. IMPRESSION: Advance cirrhosis of the liver. No obvious liver mass. Poor visualization of the gallbladder. The gallbladder appears to be contracted and contains small stones. The spleen measures 12.3 cm. No ascites.
[2018-09-22] MEDS: SODIUM CHLORIDE FLUSH SYRINGE 10 ML IV SCH ×2 (11:21→22:19)
[2018-09-22] MEDS ORDERED: SIMPLE SYRUP FEEDTUBE PRN ×4 (11:24→12:49)
[2018-09-22] MEDS ORDERED: SODIUM BICARBONATE FEEDTUBE PRN ×2 (11:24→12:49)
[2018-09-22] MEDS ORDERED: PANCREAZE DR 10,500 UNIT FEEDTUBE PRN ×2 (11:24→12:49)
[2018-09-22] MEDS: NACL 0.9% 1000 ML 1,000 ML IV SCH (12:07)
[2018-09-22] MEDS: PROAMATINE PO SCH ×3 (12:15→15:25)
[2018-09-22] MEDS: FOLVITE PO SCH (12:18)
[2018-09-22] MEDS: BABY ASPIRIN PO SCH (12:18)
[2018-09-22] MEDS: ALDACTONE PO SCH (12:18)
[2018-09-22] MEDS: LASIX PO SCH (12:19)
[2018-09-22] MEDS: PROTONIX IV SCH ×2 (12:20→22:08)
--- NOTE | 2018-09-22 13:17 | XRay Report ---
AP ABDOMEN: HISTORY: Nasogastric tube placement. The nasogastric tube terminates in the fundus of the stomach. The abdominal gas pattern is unremarkable. No masses or organomegaly is identified and there is no gross evidence of free air or fluid. There are multiple calcified gallstones in the right upper quadrant. IMPRESSION: Nasogastric tube as described. Cholelithiasis.
--- NOTE | 2018-09-22 14:37 | Progress Note ---
Assessment and Plan / Acute GIB (etiology unclear) - Continue to monitor H&H, which is stable so far -GI consulted, no planned for endoscopy if H&H remains stable - Already has outpatient follow-up - Protonix drip, IVF for hydration /Acute on chronic encephalopathy, present on admission - Likely Hepatic encephalopathy (ammonia 88 on admission), incresed ammonia level today - Continue lactulose with NG tube as patient unable to take po due to AMS, monitor response Other chronic issues: Hypertension H/o CAD H/o alcohol abuse Liver cirrhosis (due alcohol use) Hepatic encephalopathy (ammonia 88) H/o seizures disorder H/o brain aneurysm Hypothyroidism H/o dementia - cont home meds, supportive care, hold plavix - No heparin for DVT prophylasix due to bleeding, place on SCD - start TF as unable to take po, Brief History: Patient is a 62-year-old female with PMHx of CAD, hypertension, COPD, hypothyroidism, dementia, alcohol abuse, liver cirrhosis, h/o hepatic encephalopathy, seizures disorder, and brain aneurysm, brain injury, who was brought to the ER by EMS for complaints of bloody dark red stool in the morning. In the ER, her ammonia level was 88, pt is admitted for further evaluation and treatment. Hospitalist Physical exam: GENERAL: well-developed elderly WF lying on bed appeared to be in no discomfort. lethargic HEENT: Normocephalic. Atraumatic. No conjunctival congestion or icterus. Patient has moist mucous membranes. NECK: Supple. Trachea midline. CHEST/LUNGS: Clear to auscultated bilaterally, breathing nonlabored. No wheezes crackles or rhonchi. HEART/CARDIOVASCULAR: Regular in rate and rhythm. S1 and S2 positive. ABDOMEN: Abdomen is soft, nontender. Patient has normal bowel sounds. SKIN: There is no rash. Warm and dry. NEURO: does not Follow command. MUSCULOSKELETAL: No joint effusion or tenderness. EXTRIMITY: No edema, no cyanosis or clubbing. PSYCH: unable to assess Subjective Date of service: 09/22/18 Principal diagnosis: rectal bleeding, cirrhosis Interval history: Patient seen and examined. Medical records and medication list reviewed. Patient is unable to provide any history. appears more lethargic today Discussed plan of care at bedside with RN and GI. Objective - Constitutional Vitals: Vital Signs - 12hr 09/22/18 09/22/18 09/22/18 05:51 08:10 08:25 Temperature 98.4 F Pulse Rate 70 Pulse Rate [ 72 84 Anterior Bilateral Throughout] Respiratory 18 Rate Respiratory 18 18 Rate [Anterior Bilateral Throughout] Blood Pressure 109/58 O2 Sat by Pulse 91 Oximetry 09/22/18 11:16 Temperature 98.9 F Pulse Rate 73 Pulse Rate [ Anterior Bilateral Throughout] Respiratory 16 Rate Respiratory Rate [Anterior Bilateral Throughout] Blood Pressure 115/64 O2 Sat by Pulse 93 Oximetry - Labs CBC & Chem 7: 09/23/18 09:57 09/23/18 09:57 Labs: Abnormal lab results 09/22/18 Range/Units 12:16 Ammonia 134.0 H (25-60) umol/L
[2018-09-22] MEDS: VITAMIN B-1 PO SCH (15:22)
[2018-09-22] MEDS: XIFAXAN PO SCH ×2 (15:23→22:07)
[2018-09-22] MEDS: KEPPRA 1,500 MG in D5W 100 ML IV SCH ×2 (15:24→23:56)
[2018-09-22] MEDS: LaMICtal PO SCH ×2 (15:24→22:07)
[2018-09-22 18:34] LABS: Bilirubin,Urine NEG (Negative); Blood,Urine MOD (Negative); Color,Urine Yellow (Yellow); Mucus,Urine FEW /HPF; Protein,Urine <15 mg/dL mg/dL (Negative); RBC,Urine < 1.0 /HPF (0.0-6.0); Urobilinogen,Urine < 2.0 mg/dL (<2.0)
[2018-09-22 23:46] LABS: Hematocrit 37.4 % (30.3-42.9); Hemoglobin 12.8 gm/dl (10.1-14.3)
[2018-09-23] MEDS: SYNTHROID PO SCH (05:13)
[2018-09-23] MEDS: DUONEB *Not for PRN Use IH SCH ×2 (08:49→19:56)
[2018-09-23] MEDS: PROAMATINE PO SCH ×3 (09:50→16:34)
[2018-09-23] MEDS: CEPHULAC PO SCH ×3 (09:50→22:24)
[2018-09-23] MEDS: LASIX PO SCH (10:07)
[2018-09-23] MEDS: XIFAXAN PO SCH ×2 (10:08→22:25)
[2018-09-23] MEDS: KEPPRA 1,500 MG in D5W 100 ML IV SCH (10:08)
[2018-09-23] MEDS: VITAMIN B-1 PO SCH (10:08)
[2018-09-23] MEDS: ALDACTONE PO SCH (10:08)
[2018-09-23] MEDS: BABY ASPIRIN PO SCH (10:08)
[2018-09-23] MEDS: SODIUM CHLORIDE FLUSH SYRINGE 10 ML IV SCH ×2 (10:09→22:25)
[2018-09-23] MEDS: FOLVITE PO SCH (10:09)
[2018-09-23] MEDS: PROTONIX IV SCH ×2 (10:09→22:25)
[2018-09-23 10:31] LABS: Hematocrit 35.3 % (30.3-42.9); Mean Corpuscular HGB Conc 34 % (30-34); Mean Corpuscular Volume 88 fl (79-97); Platelet Count 151 K/mm3 (140-440); Red Blood Count 4.01 M/mm3 (3.65-5.03); Red Cell Distribution Width 19.9 % (13.2-15.2)
--- NOTE | 2018-09-23 10:41 | Gastroenterology Progress Note ---
<ARINAЕЛЕНА Vicente - Last Filed: 09/23/18 10:47> Assessment and Plan 1.H/o alcoholic cirrhosis with varices 2.hepatic encephalopathy 3.rectal bleeding (caregiver reports intermittent BRBPR following BMs x last few months) -temp 99.3 -WBC WNL (7.1) -H/H WNL (12.0/35.3)-stable -plt 151, INR 1.35 -continue to monitor H/H and transfuse as needed -LFTs WNL -ammonia 106-trending down -abdominal U/S showed advanced cirrhosis and gallstones but no mass or ascites -etiology-patient has a hx of alcoholic cirrhosis 2/2 former ETOH abuse with varices and HE -clinically, patient remains lethargic (likely 2/2 HE with elevated ammonia leve l yesterday, however chatman cultures pending to r/o other causes). No acute distress. No evidence of abd pain, N/V, or active signs of bleeding. Tolerating TFs via NGT. -no plan for scope at this time unless overt bleeding develops (scheduled for outpatient EGD/colonoscopy next month-10/[address] Barajas) -continue PPI, diuretics, xifaxan, propranalol, and lactulose (titrate to goal of BMs x 2-3/day) -continue to trend labs (repeat INR and CMP in am) and supportive care -will follow Subjective Date of service: 09/23/18 Principal diagnosis: rectal bleeding, cirrhosis Interval history: No acute distress. Patient remains lethargic upon exam. No evidence of abd pain, N/V, or active signs of bleeding. Tolerating TFs via NGT. Objective - Constitutional Vitals: Temp Pulse Resp BP Pulse Ox 99.3 F 80 20 107/61 94 09/23/18 05:15 09/23/18 08:49 09/23/18 08:49 09/23/18 05:15 09/23/18 08:49 General appearance: no acute distress, other (lethargic) - EENT ENT: other (+NGT) - Respiratory Respiratory: bilateral: CTA (anterior) - Cardiovascular Rhythm: regular - Gastrointestinal General gastrointestinal: Present: soft, non-distended, normal bowel sounds - Labs CBC & Chem 7: 09/23/18 09:57 09/20/18 17:46 Labs: Laboratory Results - last 24 hr 09/22/18 09/22/18 09/22/18 12:16 17:20 23:29 WBC RBC Hgb 12.8 Hct 37.4 MCV MCH MCHC RDW Plt Count Ammonia 134.0 H Urine Color Yellow Urine Turbidity Clear Urine pH 6.0 Ur Specific [place] 1.011 Urine Protein <15 mg/dl Urine Glucose (UA) Neg Urine Ketones Neg Urine Blood Mod Urine Nitrite Pos Urine Bilirubin Neg Urine Urobilinogen < 2.0 Ur Leukocyte Esterase Tr Urine WBC (Auto) 1.0 Urine RBC (Auto) < 1.0 Urine Mucus Few 09/23/18 09/23/18 07:01 09:57 WBC 7.1 RBC 4.01 Hgb 12.0 Hct 35.3 MCV 88 MCH 30 MCHC 34 RDW 19.9 H Plt Count 151 Ammonia 106.0 H Urine Color Urine Turbidity Urine pH Ur Specific [place] Urine Protein Urine Glucose (UA) Urine Ketones Urine Blood Urine Nitrite Urine Bilirubin Urine Urobilinogen Ur Leukocyte Esterase Urine WBC (Auto) Urine RBC (Auto) Urine Mucus <CRISELDA HELTON - Last Filed: 09/23/18 23:57> Assessment and Plan Patient seen and examined. I have reviewed the advanced practitioner's evaluation, assessment, and plan, and agree with them. I note the following additions: no indication for endoscopy, ruling out infection as potential secondary cause for encephalopathy. continue lactulose goal 3BM/day and xifaxan She is still confused. Had large loose BM. Given this decrease dose of lactulose as goal is 3 soft but formed BM/day Objective - Constitutional Vitals: Temp Pulse Resp BP Pulse Ox 97.5 F L 72 16 113/68 88 09/23/18 16:26 09/23/18 20:07 09/23/18 20:07 09/23/18 16:26 09/23/18 19:58 - Labs CBC & Chem 7: 09/23/18 09:57 09/23/18 09:57 Labs: Laboratory Results - last 24 hr 09/22/18 09/23/18 09/23/18 23:29 07:01 09:57 WBC 7.1 RBC 4.01 Hgb 12.8 12.0 Hct 37.4 35.3 MCV 88 MCH 30 MCHC 34 RDW 19.9 H Plt Count 151 Sodium Potassium Chloride Carbon Dioxide Anion Gap BUN Creatinine Estimated GFR BUN/Creatinine Ratio Glucose Calcium Total Bilirubin AST ALT Alkaline Phosphatase Ammonia 106.0 H Total Protein Albumin Albumin/Globulin Ratio 09/23/18 09:57 WBC RBC Hgb Hct MCV MCH MCHC RDW Plt Count Sodium 140 Potassium 3.5 L Chloride 106.7 Carbon Dioxide 23 Anion Gap 14 BUN 7 Creatinine 0.5 L Estimated GFR > 60 BUN/Creatinine Ratio 14 Glucose 157 H Calcium 8.0 L Total Bilirubin 1.10 AST 29 ALT 15 Alkaline Phosphatase 85 Ammonia Total Protein 6.0 L Albumin 3.2 L Albumin/Globulin Ratio 1.1
[2018-09-23 10:50] LABS: Alanine Aminotransferase 15 units/L (7-56); Albumin 3.2 g/dL (3.9-5); BUN/Creatinine Ratio 14; Blood Urea Nitrogen 7 mg/dL (7-17); Hemolysis Index 25
[2018-09-23] MEDS: LaMICtal PO SCH ×2 (11:45→22:25)
[2018-09-23] MEDS ORDERED: K-DUR PO ONE (12:07)
[2018-09-23] MEDS ORDERED: POTASSIUM CHLORIDE FEEDTUBE ONE (13:00)
[2018-09-23] MEDS: NACL 0.9% 1000 ML 1,000 ML IV SCH (14:31)
--- NOTE | 2018-09-23 14:51 | Progress Note ---
Assessment and Plan / Acute GIB (etiology unclear) - Continue to monitor H&H, which is stable so far -etiology-patient has a hx of alcoholic cirrhosis 2/2 former ETOH abuse with varices and HE -GI consulted, no planned for endoscopy if H&H remains stable - Already has outpatient follow-up - Protonix drip, IVF for hydration /Acute on chronic encephalopathy, present on admission - Likely Hepatic encephalopathy (ammonia trended upto 138) - -abdominal U/S showed advanced cirrhosis and gallstones but no mass or ascites - Continue lactulose with NG tube as patient unable to take po due to AMS, monitor response /Acute respiratory failure, POA - requiring more O2 to maintain sat - will check RA O2 sat, CXR - nebs as needed Other chronic issues: Hypertension H/o CAD H/o alcohol abuse Liver cirrhosis (due alcohol use) H/o seizures disorder H/o brain aneurysm Hypothyroidism H/o dementia, alcohol induced - cont home meds, supportive care, hold plavix - No heparin for DVT prophylasix due to bleeding, place on SCD - cont TF as unable to take po, Brief History: Patient is a 62-year-old female with PMHx of CAD, hypertension, COPD, hypothyroidism, dementia, alcohol abuse, liver cirrhosis, h/o hepatic encephalopathy, seizures disorder, and brain aneurysm, brain injury, who was brought to the ER by EMS for complaints of bloody dark red stool in the morning. In the ER, her ammonia level was 88, pt is admitted for further evaluation and treatment. Hospitalist Physical exam: GENERAL: well-developed elderly WF lying on bed appeared to be in no discomfort. lethargic HEENT: Normocephalic. Atraumatic. No conjunctival congestion or icterus. Patient has moist mucous membranes. NECK: Supple. Trachea midline. CHEST/LUNGS: on N/c, breathing nonlabored. No wheezes crackles or rhonchi. HEART/CARDIOVASCULAR: Regular in rate and rhythm. S1 and S2 positive. ABDOMEN: Abdomen is soft, nontender. Patient has normal bowel sounds. SKIN: There is no rash. Warm and dry. NEURO: does not Follow command. MUSCULOSKELETAL: No joint effusion or tenderness. EXTRIMITY: No edema, no cyanosis or clubbing. PSYCH: unable to assess Subjective Date of service: 09/23/18 Principal diagnosis: rectal bleeding, cirrhosis Interval history: Patient seen and examined. Medical records and medication list reviewed. Patient is unable to provide any history. appears lethargic with n/c o2 Discussed plan of care at bedside with RN and GI. Objective - Constitutional Vitals: Vital Signs - 12hr 09/23/18 09/23/18 09/23/18 05:15 06:31 08:49 Temperature 99.3 F Pulse Rate 82 75 Pulse Rate [ 80 Anterior Bilateral Throughout] Respiratory 24 Rate Respiratory 20 Rate [Anterior Bilateral Throughout] Blood Pressure 107/61 O2 Sat by Pulse 90 94 Oximetry 09/23/18 09/23/18 11:54 11:55 Temperature 98.0 F 98.0 F Pulse Rate 81 79 Pulse Rate [ Anterior Bilateral Throughout] Respiratory 12 12 Rate Respiratory Rate [Anterior Bilateral Throughout] Blood Pressure 96/50 O2 Sat by Pulse 93 100 Oximetry - Labs CBC & Chem 7: 09/24/18 05:33 09/24/18 05:33 Labs: Abnormal lab results 09/23/18 09/23/18 09/23/18 Range/Units 07:01 09:57 09:57 RDW 19.9 H (13.2-15.2) % Potassium 3.5 L (3.6-5.0) mmol/L Creatinine 0.5 L (0.7-1.2) mg/dL Glucose 157 H (65-100) mg/dL Calcium 8.0 L (8.4-10.2) mg/dL Ammonia 106.0 H (25-60) umol/L Total Protein 6.0 L (6.3-8.2) g/dL Albumin 3.2 L (3.9-5) g/dL
[2018-09-23] MEDS: INDERAL PO SCH (16:24)
--- NOTE | 2018-09-23 16:37 | XRay Report ---
PROCEDURE: XR CHEST 1V AP TECHNIQUE: Chest radiograph single view. HISTORY: SOB COMPARISONS: Chest x-ray July 31, 2018 . FINDINGS: Heart: Heart size normal. Mediastinum/Vessels: Trachea midline. Atherosclerotic calcification in aorta.. Lungs/Pleural space: No pneumothorax. No sizable effusion. No acute airspace disease. Bony thorax: No acute osseous abnormality. Life support devices: NG tube with tip below diaphragm.. IMPRESSION: NG tube with tip below diaphragm. Lungs are stable without acute airspace disease. This document is electronically signed by Lowell Wang MD., Sep 23 2018 04:35:57 PM ET
[2018-09-24] MEDS: KEPPRA 1,500 MG in D5W 100 ML IV SCH ×3 (01:05→22:24)
[2018-09-24] MEDS: SYNTHROID PO SCH (05:12)
[2018-09-24 06:01] LABS: Hematocrit 36.2 % (30.3-42.9); Hemoglobin 12.4 gm/dl (10.1-14.3)
[2018-09-24 06:10] LABS: INR 1.31 (0.87-1.13)
[2018-09-24 06:15] LABS: BUN/Creatinine Ratio 12; Blood Urea Nitrogen 6 mg/dL (7-17); Calcium 8.8 mg/dL (8.4-10.2); Hemolysis Index 4
[2018-09-24] MEDS: PROAMATINE PO SCH ×3 (08:00→18:55)
[2018-09-24] MEDS: CEPHULAC PO SCH ×3 (08:00→22:24)
[2018-09-24] MEDS: DUONEB *Not for PRN Use IH SCH ×2 (08:56→22:58)
[2018-09-24] MEDS ORDERED: NON-FORMULARY (Multivitamin [Multi-Vitamin Daily] 1 EACH) PO SCH (10:00)
--- NOTE | 2018-09-24 11:28 | Gastroenterology Progress Note ---
<ЕЛЕНА SANTA - Last Filed: 09/24/18 11:28> Assessment and Plan 1.H/o alcoholic cirrhosis with varices 2.hepatic encephalopathy 3.rectal bleeding (caregiver reports intermittent BRBPR following BMs x last few months) -afebrile -WBC WNL (7.1) -H/H WNL (12.4/36.2)-stable -plt 151, INR 1.31-stable -continue to monitor H/H and transfuse as needed -LFTs WNL -ammonia 77-trending down -abdominal U/S showed advanced cirrhosis and gallstones but no mass or ascites -etiology-patient has a hx of alcoholic cirrhosis 2/2 former ETOH abuse with varices and HE -clinically, patient remains confused but seems more alert today (opens eyes to stimuli). No evidence of abd pain, N/V, or active signs of bleeding. Tolerating TFs via NGT. -no plan for scope at this time unless overt bleeding develops (scheduled for outpatient EGD/colonoscopy next month-10/[address] Barajas) -continue PPI, diuretics, xifaxan, propranalol, and lactulose (titrate to goal of BMs x 3/day) -continue to trend labs and supportive care -will follow Subjective Date of service: 09/24/18 Principal diagnosis: rectal bleeding, cirrhosis Interval history: No acute distress. Patient remains confused but seems to be more alert today (opens eyes to stimuli). No evidence of abd pain, N/V, or active signs of bleeding. Tolerating TFs via NGT. Objective - Constitutional Vitals: Temp Pulse Resp BP Pulse Ox 98.2 F 70 20 112/62 98 09/24/18 06:05 09/24/18 09:10 09/24/18 09:10 09/24/18 06:05 09/24/18 09:09 General appearance: no acute distress - Respiratory Respiratory: bilateral: CTA (anterior) - Cardiovascular Rhythm: regular - Gastrointestinal General gastrointestinal: Present: soft, non-distended, normal bowel sounds - Labs CBC & Chem 7: 09/24/18 05:33 09/24/18 05:33 Labs: Laboratory Results - last 24 hr 09/24/18 09/24/18 09/24/18 05:33 05:33 05:33 Hgb 12.4 Hct 36.2 PT 17.1 H INR 1.31 H Sodium Potassium Chloride Carbon Dioxide Anion Gap BUN Creatinine Estimated GFR BUN/Creatinine Ratio Glucose Calcium Ammonia 77.0 H 09/24/18 05:33 Hgb Hct PT INR Sodium 138 Potassium 3.7 Chloride 103.7 Carbon Dioxide 22 Anion Gap 16 BUN 6 L Creatinine 0.5 L Estimated GFR > 60 BUN/Creatinine Ratio 12 Glucose 161 H Calcium 8.8 Ammonia <CRISELDA HELTON - Last Filed: 09/25/18 23:29> Assessment and Plan Patient seen and examined. I have reviewed the advanced practitioner's evaluation, assessment, and plan, and agree with them. I note the following additions: patient's mental status mildly improved today, continue to avoid opiates and cont xifaxan and lactulose Objective - Constitutional Vitals: Temp Pulse Resp BP Pulse Ox 97.8 F 75 18 117/66 93 09/25/18 20:00 09/25/18 21:27 09/25/18 21:27 09/25/18 09:11 09/25/18 21:12 - Labs CBC & Chem 7: 09/24/18 05:33 09/24/18 05:33
[2018-09-24] MEDS: BABY ASPIRIN PO SCH (11:39)
[2018-09-24] MEDS: ALDACTONE PO SCH (11:39)
[2018-09-24] MEDS: FLONASE NS SCH (11:39)
[2018-09-24] MEDS: LASIX PO SCH (11:39)
[2018-09-24] MEDS: XIFAXAN PO SCH ×2 (11:39→22:29)
[2018-09-24] MEDS: INDERAL PO SCH (11:40)
[2018-09-24] MEDS: LaMICtal PO SCH ×2 (11:40→22:30)
[2018-09-24] MEDS: FOLVITE PO SCH (11:40)
[2018-09-24] MEDS: PROTONIX IV SCH ×2 (11:40→22:25)
[2018-09-24] MEDS: THERAGRAN Tab PO SCH (12:02)
[2018-09-24] MEDS: VITAMIN B-1 PO SCH (12:02)
[2018-09-24] MEDS: SODIUM CHLORIDE FLUSH SYRINGE 10 ML IV SCH ×2 (12:02→22:25)
--- NOTE | 2018-09-24 14:01 | Progress Note ---
Assessment and Plan /Acute hypoxic respiratory failure, likely POA - requiring more O2 to maintain sat, today on non rebreather - Hypoxic on RA O2 sat, CXR without any infiltrates - Order CTA chest to rule out acute PE - nebs scheduled and as needed, consult pulmonary /Bacteremia, doubt contamination - Positive culture with gram-positive cocci - We'll repeat culture, place on vancomycin / Acute GIB (etiology unclear) - Continue to monitor H&H, which is stable so far -etiology-patient has a hx of alcoholic cirrhosis 2/2 former ETOH abuse with varices and HE -GI consulted, no planned for endoscopy if H&H remains stable - Already has outpatient follow-up - Protonix drip, IVF for hydration /Acute on chronic encephalopathy, present on admission - Likely Hepatic encephalopathy (ammonia trended upto 138) - -abdominal U/S showed advanced cirrhosis and gallstones but no mass or ascites - Continue lactulose with NG tube as patient unable to take po due to AMS, monitor response - Mental status much improved today Other chronic issues: Hypertension H/o CAD H/o alcohol abuse Liver cirrhosis (due alcohol use) H/o seizures disorder H/o brain aneurysm Hypothyroidism H/o dementia, alcohol induced - cont home meds, supportive care, hold plavix - No heparin for DVT prophylasix due to bleeding, place on SCD - cont TF as unable to take po, Brief History: Patient is a 62-year-old female with PMHx of CAD, hypertension, COPD, hy pothyroidism, dementia, alcohol abuse, liver cirrhosis, h/o hepatic encephalopathy, seizures disorder, and brain aneurysm, brain injury, who was brought to the ER by EMS for complaints of bloody dark red stool in the morning. In the ER, her ammonia level was 88, pt is admitted for further evaluation and treatment. Hospitalist Physical exam: GENERAL: well-developed elderly WF lying on bed appeared to be in no discomfort. Opens eyes with with verbal commands HEENT: Normocephalic. Atraumatic. No conjunctival congestion or icterus. Patient has moist mucous membranes. NECK: Supple. Trachea midline. CHEST/LUNGS: on N/c, breathing nonlabored. No wheezes crackles or rhonchi. HEART/CARDIOVASCULAR: Regular in rate and rhythm. S1 and S2 positive. ABDOMEN: Abdomen is soft, nontender. Patient has normal bowel sounds. SKIN: There is no rash. Warm and dry. NEURO: Follow simple command. MUSCULOSKELETAL: No joint effusion or tenderness. EXTRIMITY: No edema, no cyanosis or clubbing. PSYCH: Cooperative Subjective Date of service: 09/24/18 Principal diagnosis: rectal bleeding, cirrhosis Interval history: Patient seen and examined. Medical records and medication list reviewed. Patient more alert today and placed on nonrebreather Discussed plan of care at bedside with RN. We'll transfer the patient to [facility] for higher level of care Objective - Constitutional Vitals: Vital Signs - 12hr 09/24/18 09/24/18 09/24/18 06:05 07:37 07:45 Temperature 98.2 F Pulse Rate 70 Pulse Rate [ Anterior Bilateral Throughout] Pulse Rate [ Anterior Left Throughout] Respiratory 20 20 Rate Respiratory Rate [Anterior Bilateral Throughout] Respiratory Rate [Anterior Left Throughout ] Blood Pressure 112/62 O2 Sat by Pulse 93 98 Oximetry 09/24/18 09/24/18 09/24/18 08:57 09:09 09:10 Temperature Pulse Rate Pulse Rate [ 68 70 Anterior Bilateral Throughout] Pulse Rate [ 68 70 Anterior Left Throughout] Respiratory Rate Respiratory 20 20 Rate [Anterior Bilateral Throughout] Respiratory 20 20 Rate [Anterior Left Throughout ] Blood Pressure O2 Sat by Pulse 98 Oximetry 09/24/18 09/24/18 11:10 11:39 Temperature 98.7 F Pulse Rate 72 Pulse Rate [ Anterior Bilateral Throughout] Pulse Rate [ Anterior Left Throughout] Respiratory 22 Rate Respiratory Rate [Anterior Bilateral Throughout] Respiratory Rate [Anterior Left Throughout ] Blood Pressure 112/68 112/62 O2 Sat by Pulse 98 Oximetry - Labs CBC & Chem 7: 09/24/18 05:33 09/24/18 05:33 Labs: Abnormal lab results 09/24/18 09/24/18 09/24/18 Range/Units 05:33 05:33 05:33 PT 17.1 H (12.2-14.9) Sec. INR 1.31 H (0.87-1.13) BUN 6 L (7-17) mg/dL Creatinine 0.5 L (0.7-1.2) mg/dL Glucose 161 H (65-100) mg/dL Ammonia 77.0 H (25-60) umol/L
--- NOTE | 2018-09-24 14:04 | Consultation ---
History of Present Illness Consult date: 09/24/18 Requesting physician: BERNADINE JUAN Reason for consult: COPD History of present illness: PULMONARY/CCM CONSULT NOTE (Full dictation # ) Please see dictated notes for full details Past History Past Medical History: other (as per HPI) Past Surgical History: Other (brain surgery) Social history: other (former alcohol abuse) Family history: no significant family history Medications and Allergies Allergies Allergy/AdvReac Type Severity Reaction Status Date / Time No Known Allergies Allergy Verified 09/20/18 17:09 Home Medications Medication Instructions Recorded Confirmed Last Taken Type Folic Acid [Folvite] 1 mg PO QDAY 11/02/13 09/22/18 06/22/17 History Multivitamin [Multi-Vitamin Daily] 1 each PO DAILY 11/02/13 09/22/18 06/22/17 History Aspirin [Aspirin BABY CHEW TAB] 1 tab PO DAILY 05/10/14 09/22/18 06/22/17 History Furosemide [Lasix TAB] 10 mg PO QDAY 08/11/17 09/22/18 Unknown History Famotidine [Pepcid] 40 mg PO QHS #30 tablet 08/16/17 09/22/18 Unknown Rx Plavix 75 mg PO DAILY #30 08/16/17 09/22/18 Unknown Rx Thiamine [Vitamin B-1] 100 mg PO QDAY #30 tablet 08/16/17 09/22/18 Unknown Rx lamoTRIgine [LaMICtal] 25 mg PO BID #50 tablet 08/16/17 09/22/18 Unknown Rx levETIRAcetam [Keppra TAB] 1,500 mg PO BID #60 tablet 08/16/17 09/22/18 Unknown Rx traZODone [Desyrel] 50 mg PO QHS PRN #30 tablet 08/16/17 09/22/18 Unknown Rx Rifaximin [Xifaxan] 550 mg PO BID #60 tablet 07/30/18 09/22/18 Unknown Rx Spironolactone [Aldactone] 50 mg PO QDAY #30 tablet 07/30/18 09/22/18 Unknown Rx ALBUTEROL NEB's [Proventil 0.083% 2.5 mg IH Q6HRT PRN #90 nebu 08/04/18 09/22/18 Unknown Rx NEBS] Ipratropium/Albuterol Sulfate 1 ampul IH TIDRT #90 ampul.neb 08/04/18 09/22/18 Unknown Rx [DUONEB *Not for PRN Use*] Midodrine [Proamatine] 5 mg PO TID@0800,1200,1600 #90 08/04/18 09/22/18 Unknown Rx tablet Fluticasone [Flonase] 1 spray NS QDAY 09/22/18 09/22/18 Unknown History Lactulose 10 gm PO QDAY 09/22/18 09/22/18 Unknown History Propranolol [Inderal] 40 mg PO QDAY 09/22/18 09/22/18 Unknown History Active Meds: Active Medications Acetaminophen (Tylenol) 650 mg PO Q4H PRN PRN Reason: Pain MILD(1-3)/Fever >100.5/PÉREZ Albuterol (Proventil) 2.5 mg IH Q4HRT PRN PRN Reason: Shortness Of Breath Albuterol/Ipratropium (Duoneb *Not For Prn Use*) 1 ampul IH BIDRT [facility] Last Admin: 09/24/18 08:56 Dose: 1 ampul Documented by: Lipase/Protease/Amylase (Sina Mix 10,500 Unit) 1 each FEEDTUBE PRN PRN PRN Reason: For Clogged Feeding Tube Lipase/Protease/Amylase (Sina Mix 10,500 Unit) 1 each FEEDTUBE PRN PRN PRN Reason: For Clogged Feeding Tube Aspirin (Baby Aspirin) 81 mg PO DAILY [facility] Last Admin: 09/24/18 11:39 Dose: 81 mg Documented by: Fluticasone Propionate (Flonase) 50 mcg NS QDAY [facility] Last Admin: 09/24/18 11:39 Dose: 50 mcg Documented by: Folic Acid (Folvite) 1 mg PO QDAY [facility] Last Admin: 09/24/18 11:40 Dose: 1 mg Documented by: Furosemide (Lasix) 20 mg PO QDAY [facility] Last Admin: 09/24/18 11:39 Dose: 20 mg Documented by: Levetiracetam 1,500 mg/ (Dextrose) 115 mls @ 400 mls/hr IV Q12HR [facility] Last Admin: 09/24/18 12:25 Dose: 400 mls/hr Documented by: Vancomycin HCl (Vancomycin/Ns 1 Gm/250 Ml) 1 gm in 250 mls @ 166.667 mls/hr IV Q12H [facility]; Protocol Lactulose (Cephulac) 30 gm PO TID [facility] Last Admin: 09/24/18 08:00 Dose: Not Given Documented by: Lamotrigine (Lamictal) 25 mg PO BID [facility] Last Admin: 09/24/18 11:40 Dose: 25 mg Documented by: Levothyroxine Sodium (Synthroid) 75 mcg PO DAILY@0600 [facility] Last Admin: 09/24/18 05:12 Dose: 75 mcg Documented by: Midodrine (Proamatine) 5 mg PO TID@0800,1200,1600 [facility] Last Admin: 09/24/18 11:43 Dose: 5 mg Documented by: Morphine Sulfate (Morphine) 2 mg IV Q4H PRN PRN Reason: Pain, Moderate (4-6) Multivitamins (Theragran Tab) 1 each PO DAILY [facility] Last Admin: 09/24/18 12:02 Dose: 1 each Documented by: Ondansetron HCl (Zofran) 4 mg IV Q8H PRN PRN Reason: Nausea And Vomiting Pantoprazole Sodium (Protonix) 40 mg IV BID [facility] Last Admin: 09/24/18 11:40 Dose: 40 mg Documented by: Propranolol HCl (Inderal) 40 mg PO QDAY [facility] Last Admin: 09/24/18 11:40 Dose: 40 mg Documented by: Rifaximin (Xifaxan) 550 mg PO BID [facility] Last Admin: 09/24/18 11:39 Dose: 550 mg Documented by: Simple Syrup (Simple Syrup) 15 ml FEEDTUBE PRN PRN PRN Reason: Hypoglycemia Simple Syrup (Simple Syrup) 30 ml FEEDTUBE PRN PRN PRN Reason: Hypoglycemia Simple Syrup (Simple Syrup) 15 ml FEEDTUBE PRN PRN PRN Reason: Hypoglycemia Simple Syrup (Simple Syrup) 30 ml FEEDTUBE PRN PRN PRN Reason: Hypoglycemia Sodium Bicarbonate (Sodium Bicarbonate) 325 mg FEEDTUBE PRN PRN PRN Reason: For Clogged Feeding Tube Sodium Bicarbonate (Sodium Bicarbonate) 325 mg FEEDTUBE PRN PRN PRN Reason: For Clogged Feeding Tube Sodium Chloride (Sodium Chloride Flush Syringe 10 Ml) 10 ml IV BID [facility] Last Admin: 09/24/18 12:02 Dose: 10 ml Documented by: Spironolactone (Aldactone) 50 mg PO QDAY [facility] Last Admin: 09/24/18 11:39 Dose: 50 mg Documented by: Thiamine HCl (Vitamin B-1) 100 mg PO QDAY [facility] Last Admin: 09/24/18 12:02 Dose: 100 mg Documented by: Trazodone HCl (Desyrel) 50 mg PO QHS PRN PRN Reason: Sleep Last Admin: 09/21/18 20:54 Dose: 50 mg Documented by: Physical Examination Vital signs: Vital Signs Temp Pulse Resp BP Pulse Ox 98.8 F 53 L 12 131/67 97 09/20/18 17:25 09/20/18 17:25 09/20/18 17:25 09/20/18 17:25 09/20/18 17:25 Results - Laboratory Findings CBC and BMP: 09/24/18 05:33 09/24/18 05:33 PT/INR, D-dimer PT 17.1 Sec. (12.2-14.9) H 09/24/18 05:33 INR 1.31 (0.87-1.13) H 09/24/18 05:33 Abnormal lab findings: Abnormal Labs 09/20/18 09/20/18 09/20/18 17:46 17:46 17:54 RDW 19.8 H PT 17.5 H INR 1.35 H Potassium BUN Creatinine 0.6 L Glucose Calcium Ammonia Total Protein Albumin 3.7 L 09/20/18 09/22/18 09/23/18 17:55 12:16 07:01 RDW PT INR Potassium BUN Creatinine Glucose Calcium Ammonia 88.0 H 134.0 H 106.0 H Total Protein Albumin 09/23/18 09/23/18 09/24/18 09:57 09:57 05:33 RDW 19.9 H PT 17.1 H INR 1.31 H Potassium 3.5 L BUN Creatinine 0.5 L Glucose 157 H Calcium 8.0 L Ammonia Total Protein 6.0 L Albumin 3.2 L 09/24/18 09/24/18 05:33 05:33 RDW PT INR Potassium BUN 6 L Creatinine 0.5 L Glucose 161 H Calcium Ammonia 77.0 H Total Protein Albumin
[2018-09-24] MEDS: VANCOMYCIN/NS 1 GM/250 ML 1 GM/250 ML BAG IV SCH ×2 (18:55→23:28)
[2018-09-24] MEDS ORDERED: NACL 0.9% 250ML 250 ML ONE (22:17)
[2018-09-25] MEDS: DUONEB *Not for PRN Use IH SCH ×2 (09:25→21:11)
[2018-09-25] MEDS: BABY ASPIRIN PO SCH (09:35)
[2018-09-25] MEDS: LaMICtal PO SCH ×2 (09:35→22:41)
[2018-09-25] MEDS: THERAGRAN Tab PO SCH (09:35)
[2018-09-25] MEDS: FOLVITE PO SCH (09:35)
[2018-09-25] MEDS: VITAMIN B-1 PO SCH (09:35)
[2018-09-25] MEDS: PROTONIX IV SCH ×2 (09:35→22:41)
[2018-09-25] MEDS: INDERAL PO SCH (09:36)
[2018-09-25] MEDS: PROAMATINE PO SCH ×3 (09:36→16:00)
[2018-09-25] MEDS: LASIX PO SCH (09:36)
[2018-09-25] MEDS: SODIUM CHLORIDE FLUSH SYRINGE 10 ML IV SCH ×2 (09:37→22:41)
[2018-09-25] MEDS: KEPPRA 1,500 MG in D5W 100 ML IV SCH ×2 (09:47→23:10)
--- NOTE | 2018-09-25 11:10 | Gastroenterology Progress Note ---
Assessment and Plan 1. Liver: etoh cirrhosis with signs encephalopathy - no labs today and did not get Lactulose this - continue Lactulose 30 cc po tid, consider increase or Lactulose enema based on progress - continue Xifaxan 2. GI: no signs bleeding - stable h/h - no plans to scope at this time - d/ when mental status stable - will follow Subjective Date of service: 09/25/18 Principal diagnosis: rectal bleeding, cirrhosis Interval history: - pt confused today. No signs bleeding. No other issues overnight from GI standpoint per staff Objective - Constitutional Vitals: Temp Pulse Resp BP Pulse Ox 97.0 F L 73 18 117/66 96 09/25/18 04:11 09/25/18 09:39 09/25/18 09:39 09/25/18 09:11 09/25/18 09:28 - EENT Eyes: PERRL - Respiratory Respiratory: bilateral: CTA - Cardiovascular Rhythm: regular Heart Sounds: Present: S1 & S2 - Gastrointestinal General gastrointestinal: Present: soft, non-tender, non-distended - Labs CBC & Chem 7: 09/24/18 05:33 09/24/18 05:33 Labs: Laboratory Results - last 24 hr 09/24/18 17:01 POC ABG pH 7.460 H POC ABG pCO2 31.2 L POC ABG pO2 73 L POC ABG HCO3 22.1 POC ABG Total CO2 23 POC ABG O2 Sat 95 POC ABG Base Excess -2 FiO2 50
--- NOTE | 2018-09-25 11:35 | Cat Scan Report ---
PROCEDURE: CT ANGIO CHEST TECHNIQUE: Computerized tomographic angiography of the chest was performed after the IV injection of iodinated nonionic contrast including image processing. The image data was postprocessed using 2-dim ensional multiplanar reformatted (MPR) and 3-dimensional (MIP and/or volume rendered) techniques. Aut omated exposure control, adjustment of mA and/or kV according to patient size, or iterative reconstru ction dose optimization techniques were utilized. Coronal and sagittal reconstructed imaging provided . CT DOSE LENGTH PRODUCT: 604.3 mGy-cm. HISTORY: possible PE COMPARISONS: CT chest August 01, 2018. FINDINGS: Prominent bilateral interseptal thickening is smooth and extends to the periphery. Mild bilateral per ihilar airspace opacities are more prominent in the deep dependent portions of the lungs. Minimal bib asilar subsegmental atelectasis. No pneumothorax. No distinct consolidation. No endobronchial lesions . Main pulmonary artery is unremarkable. No pulmonary embolism. No aneurysm. Major branch arteries are within normal limits. [place] atherosclerotic disease . Iuia-qp-naihunjt cardiomegaly. No pericardial effusion. Coronary artery disease. Series 2:56-81 demonstrates a tortuous a lesion near the left infrahilar region arising from the GE j unction extending to the left pulmonary vein. There is no axillary adenopathy. There is no hilar or mediastinal mass or adenopathy. Limited images of the thyroid gland are unremarkable. Enteric tube is in the esophagus with the tip in the stomach. Heterogeneous liver with lobulated contour identified. Spleen appears enlarged. Tortuous vessels around the GE junction and splenic hilum noted. Partially imaged gallbladder with gallstones. Bones: No suspicious osseous lesions on this limited examination of the skeleton. Metastatic disease better evaluated with bone scan. Degenerative changes are present in the spine. IMPRESSION: * No pulmonary embolus. No aortic aneurysm. No dissection. * Suspects cirrhotic liver. * Varices and splenomegaly suggest portal hypertension. Prominent soft tissue density lesion near th e left infrahilar region from the GE junction to the left pulmonary vein may represent varices with c ollateralized return. This is relatively similar to prior. Differential diagnosis would include mass. * Suspect pulmonary vascular congestion with mild edema. This document is electronically signed by Henrry Roman MD., Sep 25 2018 11:33:06 AM ET
[2018-09-25] MEDS: VANCOMYCIN/NS 1 GM/250 ML 1 GM/250 ML BAG IV SCH ×2 (12:00→23:44)
--- NOTE | 2018-09-25 13:44 | Progress Note ---
Assessment and Plan /Acute hypoxic respiratory failure, likely POA - Possible ARDS from sepsis?? pulmonary edema due to sepsis and hepatic failure ?? - requiring more O2 to maintain sat, now on non rebreather - Hypoxic on RA O2 sat, CXR without any infiltrates - CTA chest showed no acute PE - nebs scheduled and as needed, consulted pulmonary /Bacteremia, MRSA with possible sepsis (encephalopathy, respiratory failure, worsening hepatic function from baseline), likely POA - 1 out of 4 blood culture bottles positive on 09/22/18. 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 ETOH abuse with varices and HE -GI consulted, no planned for endoscopy if H&H remains stable - Already has outpatient follow-up - cont Protonix, IVF for hydration as needed /Acute on chronic encephalopathy, present on admission - Likely Hepatic encephalopathy (ammonia trended upto 138) - -abdominal U/S showed advanced cirrhosis and gallstones but no mass or ascites - Continue lactulose with NG tube as patient unable to take po due to AMS, monitor response - Mental status much improved now with lactulose /Hepatic cirrhosis with portal hypertension and esophageal varices - Due to alcohol abuse -GI following, continue to monitor clinically Other chronic issues: Hypertension H/o CAD H/o alcohol abuse H/o seizures disorder H/o brain aneurysm Hypothyroidism H/o dementia, alcohol induced - cont home meds, supportive care, hold plavix - No heparin for DVT prophylasix due to bleeding, placed on SCD - cont TF as unable to take po, Brief History: Patient is a 62-year-old female with PMHx of CAD, hypertension, COPD, hypothyroidism, dementia, alcohol abuse, liver cirrhosis, h/o hepatic encephalopathy, seizures disorder, and brain aneurysm, brain injury, who was brought to the ER by EMS for complaints of bloody dark red stool in the morning. In the ER, her ammonia level was 88, pt is admitted for further evaluation and treatment. CTA chest 09/24/18: * No pulmonary embolus. No aortic aneurysm. No dissection. * Suspects cirrhotic liver. * Varices and splenomegaly suggest portal hypertension. Prominent soft tissue density lesion near the left infrahilar region from the GE junction to the left pulmonary vein may represent varices with collateralized return. This is relatively similar to prior. Differential diagnosis would include mass. * Suspect pulmonary vascular congestion with mild edema. Hospitalist Physical exam: GENERAL: well-developed elderly WF lying on bed appeared to be in no discomfort. Opens eyes with with verbal commands HEENT: Normocephalic. Atraumatic. No conjunctival congestion or icterus. Patient has moist mucous membranes. NECK: Supple. Trachea midline. CHEST/LUNGS: on N/c, breathing nonlabored. No wheezes crackles or rhonchi. HEART/CARDIOVASCULAR: Regular in rate and rhythm. S1 and S2 positive. ABDOMEN: Abdomen is soft, nontender. Patient has normal bowel sounds. SKIN: There is no rash. Warm and dry. NEURO: Follow simple command. MUSCULOSKELETAL: No joint effusion or tenderness. EXTRIMITY: No edema, no cyanosis or clubbing. PSYCH: Cooperative Subjective Date of service: 09/25/18 Principal diagnosis: rectal bleeding, cirrhosis Interval history: Patient seen and examined. Medical records and medication list reviewed. Patient more alert today and on nonrebreather Discussed plan of care at bedside with RN. CT chest showed no PE Objective - Constitutional Vitals: Vital Signs - 12hr 09/25/18 09/25/18 09/25/18 01:51 02:00 02:11 Temperature Pulse Rate 75 74 75 Pulse Rate [ Anterior Bilateral Throughout] Pulse Rate [ Anterior Left Throughout] Respiratory 23 22 22 Rate Respiratory Rate [Anterior Bilateral Throughout] Respiratory Rate [Anterior Left Throughout ] Blood Pressure 98/57 117/59 112/47 O2 Sat by Pulse 95 96 96 Oximetry 09/25/18 09/25/18 09/25/18 02:21 02:30 02:41 Temperature Pulse Rate 74 77 75 Pulse Rate [ Anterior Bilateral Throughout] Pulse Rate [ Anterior Left Throughout] Respiratory 22 24 22 Rate Respiratory Rate [Anterior Bilateral Throughout] Respiratory Rate [Anterior Left Throughout ] Blood Pressure 112/47 128/53 117/59 O2 Sat by Pulse 96 95 96 Oximetry 09/25/18 09/25/18 09/25/18 02:51 03:01 03:11 Temperature Pulse Rate 72 71 76 Pulse Rate [ Anterior Bilateral Throughout] Pulse Rate [ Anterior Left Throughout] Respiratory 21 21 19 Rate Respiratory Rate [Anterior Bilateral Throughout] Respiratory Rate [Anterior Left Throughout ] Blood Pressure 117/59 101/50 128/53 O2 Sat by Pulse 97 98 97 Oximetry 09/25/18 09/25/18 09/25/18 03:21 03:30 03:41 Temperature Pulse Rate 72 72 77 Pulse Rate [ Anterior Bilateral Throughout] Pulse Rate [ Anterior Left Throughout] Respiratory 21 20 23 Rate Respiratory Rate [Anterior Bilateral Throughout] Respiratory Rate [Anterior Left Throughout ] Blood Pressure 128/53 110/53 101/50 O2 Sat by Pulse 98 98 97 Oximetry 09/25/18 09/25/18 09/25/18 03:51 04:00 04:11 Temperature 97.0 F L Pulse Rate 72 72 72 Pulse Rate [ Anterior Bilateral Throughout] Pulse Rate [ Anterior Left Throughout] Respiratory 21 21 18 Rate Respiratory Rate [Anterior Bilateral Throughout] Respiratory Rate [Anterior Left Throughout ] Blood Pressure 101/50 105/47 110/53 O2 Sat by Pulse 97 96 98 Oximetry 09/25/18 09/25/18 09/25/18 04:21 04:30 04:41 Temperature Pulse Rate 72 73 76 Pulse Rate [ Anterior Bilateral Throughout] Pulse Rate [ Anterior Left Throughout] Respiratory 21 20 23 Rate Respiratory Rate [Anterior Bilateral Throughout] Respiratory Rate [Anterior Left Throughout ] Blood Pressure 110/53 112/48 105/47 O2 Sat by Pulse 100 96 97 Oximetry 09/25/18 09/25/18 09/25/18 04:51 05:00 05:11 Temperature Pulse Rate 77 80 76 Pulse Rate [ Anterior Bilateral Throughout] Pulse Rate [ Anterior Left Throughout] Respiratory 20 21 17 Rate Respiratory Rate [Anterior Bilateral Throughout] Respiratory Rate [Anterior Left Throughout ] Blood Pressure 105/47 107/51 107/51 O2 Sat by Pulse 96 95 98 Oximetry 09/25/18 09/25/18 09/25/18 05:21 05:30 05:41 Temperature Pulse Rate 76 74 75 Pulse Rate [ Anterior Bilateral Throughout] Pulse Rate [ Anterior Left Throughout] Respiratory 21 19 20 Rate Respiratory Rate [Anterior Bilateral Throughout] Respiratory Rate [Anterior Left Throughout ] Blood Pressure 107/51 116/61 116/61 O2 Sat by Pulse 97 97 97 Oximetry 09/25/18 09/25/18 09/25/18 05:51 06:00 06:11 Temperature Pulse Rate 78 74 71 Pulse Rate [ Anterior Bilateral Throughout] Pulse Rate [ Anterior Left Throughout] Respiratory 19 20 18 Rate Respiratory Rate [Anterior Bilateral Throughout] Respiratory Rate [Anterior Left Throughout ] Blood Pressure 116/61 114/58 114/58 O2 Sat by Pulse 97 97 98 Oximetry 09/25/18 09/25/18 09/25/18 06:21 06:30 06:41 Temperature Pulse Rate 76 71 83 Pulse Rate [ Anterior Bilateral Throughout] Pulse Rate [ Anterior Left Throughout] Respiratory 18 20 21 Rate Respiratory Rate [Anterior Bilateral Throughout] Respiratory Rate [Anterior Left Throughout ] Blood Pressure 114/58 103/56 114/58 O2 Sat by Pulse 97 97 95 Oximetry 09/25/18 09/25/18 09/25/18 06:51 07:00 07:11 Temperature Pulse Rate 82 82 80 Pulse Rate [ Anterior Bilateral Throughout] Pulse Rate [ Anterior Left Throughout] Respiratory 14 23 18 Rate Respiratory Rate [Anterior Bilateral Throughout] Respiratory Rate [Anterior Left Throughout ] Blood Pressure 114/58 101/73 101/73 O2 Sat by Pulse 95 96 97 Oximetry 09/25/18 09/25/18 09/25/18 07:21 07:30 07:41 Temperature Pulse Rate 78 80 77 Pulse Rate [ Anterior Bilateral Throughout] Pulse Rate [ Anterior Left Throughout] Respiratory 19 17 18 Rate Respiratory Rate [Anterior Bilateral Throughout] Respiratory Rate [Anterior Left Throughout ] Blood Pressure 101/73 114/69 114/69 O2 Sat by Pulse 98 95 98 Oximetry 09/25/18 09/25/18 09/25/18 07:51 08:00 08:11 Temperature Pulse Rate 75 75 74 Pulse Rate [ Anterior Bilateral Throughout] Pulse Rate [ Anterior Left Throughout] Respiratory 20 20 19 Rate Respiratory Rate [Anterior Bilateral Throughout] Respiratory Rate [Anterior Left Throughout ] Blood Pressure 114/69 116/72 116/72 O2 Sat by Pulse 98 98 98 Oximetry 09/25/18 09/25/18 09/25/18 08:21 08:30 08:41 Temperature Pulse Rate 75 73 77 Pulse Rate [ Anterior Bilateral Throughout] Pulse Rate [ Anterior Left Throughout] Respiratory 21 19 21 Rate Respiratory Rate [Anterior Bilateral Throughout] Respiratory Rate [Anterior Left Throughout ] Blood Pressure 116/72 118/62 118/62 O2 Sat by Pulse 98 98 93 Oximetry 09/25/18 09/25/18 09/25/18 08:51 09:00 09:11 Temperature Pulse Rate 76 75 74 Pulse Rate [ Anterior Bilateral Throughout] Pulse Rate [ Anterior Left Throughout] Respiratory 22 20 19 Rate Respiratory Rate [Anterior Bilateral Throughout] Respiratory Rate [Anterior Left Throughout ] Blood Pressure 118/62 117/66 117/66 O2 Sat by Pulse 92 93 95 Oximetry 09/25/18 09/25/18 09/25/18 09:26 09:28 09:39 Temperature Pulse Rate Pulse Rate [ 73 Anterior Bilateral Throughout] Pulse Rate [ 73 Anterior Left Throughout] Respiratory Rate Respiratory 18 Rate [Anterior Bilateral Throughout] Respiratory 20 Rate [Anterior Left Throughout ] Blood Pressure O2 Sat by Pulse 96 Oximetry 09/25/18 09/25/18 11:44 11:50 Temperature 97.7 F 97.7 F Pulse Rate Pulse Rate [ Anterior Bilateral Throughout] Pulse Rate [ Anterior Left Throughout] Respiratory Rate Respiratory Rate [Anterior Bilateral Throughout] Respiratory Rate [Anterior Left Throughout ] Blood Pressure O2 Sat by Pulse Oximetry - Labs CBC & Chem 7: 09/26/18 06:56 09/26/18 06:56 Labs: Abnormal lab results 09/24/18 Range/Units 17:01 POC ABG pH 7.460 H (7.35-7.45) POC ABG pCO2 31.2 L (35-45) POC ABG pO2 73 L (80-105)
[2018-09-25] MEDS: CEPHULAC PO SCH ×3 (13:53→22:40)
[2018-09-25] MEDS: ALDACTONE PO SCH (13:54)
[2018-09-25] MEDS: XIFAXAN PO SCH ×2 (13:54→22:41)
[2018-09-25] MEDS: FLONASE NS SCH (13:56)
--- NOTE | 2018-09-25 14:41 | Progress Note ---
Assessment and Plan Patient resting on O2. No acute respiratory distress.Patient is on 3 litres O2. O2 saturation 98%. - Patient Problems (1) Acute respiratory failure with hypoxia Current Visit: No Status: Acute Plan to address problem: On 3 litres O2. o2 saturation 98%. Albuterol/atrovent aerosol treatments q 6 hours. SCDs Continue Protonix. (2) Hepatic encephalopathy syndrome Current Visit: Yes Status: Acute Plan to address problem: Patient is on Lactulose. Mangement as per Primary care and GI. (3) Cirrhosis, alcoholic Current Visit: Yes Status: Chronic Plan to address problem: Management as per GI. (4) GI bleed Current Visit: No Status: Acute Plan to address problem: Management as per GI. Subjective Date of service: 09/25/18 Principal diagnosis: rectal bleeding, cirrhosis Interval history: Patient resting on O2. No acute respiratory distress.Patient is on 3 litres O2. O2 saturation 98%. Objective Vital Signs - 12hr 09/25/18 09/25/18 09/25/18 02:41 02:51 03:01 Temperature Pulse Rate 75 72 71 Pulse Rate [ Anterior Bilateral Throughout] Pulse Rate [ Anterior Left Throughout] Respiratory 22 21 21 Rate Respiratory Rate [Anterior Bilateral Throughout] Respiratory Rate [Anterior Left Throughout ] Blood Pressure 117/59 117/59 101/50 O2 Sat by Pulse 96 97 98 Oximetry 09/25/18 09/25/18 09/25/18 03:11 03:21 03:30 Temperature Pulse Rate 76 72 72 Pulse Rate [ Anterior Bilateral Throughout] Pulse Rate [ Anterior Left Throughout] Respiratory 19 21 20 Rate Respiratory Rate [Anterior Bilateral Throughout] Respiratory Rate [Anterior Left Throughout ] Blood Pressure 128/53 128/53 110/53 O2 Sat by Pulse 97 98 98 Oximetry 09/25/18 09/25/18 09/25/18 03:41 03:51 04:00 Temperature Pulse Rate 77 72 72 Pulse Rate [ Anterior Bilateral Throughout] Pulse Rate [ Anterior Left Throughout] Respiratory 23 21 21 Rate Respiratory Rate [Anterior Bilateral Throughout] Respiratory Rate [Anterior Left Throughout ] Blood Pressure 101/50 101/50 105/47 O2 Sat by Pulse 97 97 96 Oximetry 09/25/18 09/25/18 09/25/18 04:11 04:21 04:30 Temperature 97.0 F L Pulse Rate 72 72 73 Pulse Rate [ Anterior Bilateral Throughout] Pulse Rate [ Anterior Left Throughout] Respiratory 18 21 20 Rate Respiratory Rate [Anterior Bilateral Throughout] Respiratory Rate [Anterior Left Throughout ] Blood Pressure 110/53 110/53 112/48 O2 Sat by Pulse 98 100 96 Oximetry 09/25/18 09/25/18 09/25/18 04:41 04:51 05:00 Temperature Pulse Rate 76 77 80 Pulse Rate [ Anterior Bilateral Throughout] Pulse Rate [ Anterior Left Throughout] Respiratory 23 20 21 Rate Respiratory Rate [Anterior Bilateral Throughout] Respiratory Rate [Anterior Left Throughout ] Blood Pressure 105/47 105/47 107/51 O2 Sat by Pulse 97 96 95 Oximetry 09/25/18 09/25/18 09/25/18 05:11 05:21 05:30 Temperature Pulse Rate 76 76 74 Pulse Rate [ Anterior Bilateral Throughout] Pulse Rate [ Anterior Left Throughout] Respiratory 17 21 19 Rate Respiratory Rate [Anterior Bilateral Throughout] Respiratory Rate [Anterior Left Throughout ] Blood Pressure 107/51 107/51 116/61 O2 Sat by Pulse 98 97 97 Oximetry 09/25/18 09/25/18 09/25/18 05:41 05:51 06:00 Temperature Pulse Rate 75 78 74 Pulse Rate [ Anterior Bilateral Throughout] Pulse Rate [ Anterior Left Throughout] Respiratory 20 19 20 Rate Respiratory Rate [Anterior Bilateral Throughout] Respiratory Rate [Anterior Left Throughout ] Blood Pressure 116/61 116/61 114/58 O2 Sat by Pulse 97 97 97 Oximetry 09/25/18 09/25/18 09/25/18 06:11 06:21 06:30 Temperature Pulse Rate 71 76 71 Pulse Rate [ Anterior Bilateral Throughout] Pulse Rate [ Anterior Left Throughout] Respiratory 18 18 20 Rate Respiratory Rate [Anterior Bilateral Throughout] Respiratory Rate [Anterior Left Throughout ] Blood Pressure 114/58 114/58 103/56 O2 Sat by Pulse 98 97 97 Oximetry 09/25/18 09/25/18 09/25/18 06:41 06:51 07:00 Temperature Pulse Rate 83 82 82 Pulse Rate [ Anterior Bilateral Throughout] Pulse Rate [ Anterior Left Throughout] Respiratory 21 14 23 Rate Respiratory Rate [Anterior Bilateral Throughout] Respiratory Rate [Anterior Left Throughout ] Blood Pressure 114/58 114/58 101/73 O2 Sat by Pulse 95 95 96 Oximetry 09/25/18 09/25/18 09/25/18 07:11 07:21 07:30 Temperature Pulse Rate 80 78 80 Pulse Rate [ Anterior Bilateral Throughout] Pulse Rate [ Anterior Left Throughout] Respiratory 18 19 17 Rate Respiratory Rate [Anterior Bilateral Throughout] Respiratory Rate [Anterior Left Throughout ] Blood Pressure 101/73 101/73 114/69 O2 Sat by Pulse 97 98 95 Oximetry 09/25/18 09/25/18 09/25/18 07:41 07:51 08:00 Temperature Pulse Rate 77 75 75 Pulse Rate [ Anterior Bilateral Throughout] Pulse Rate [ Anterior Left Throughout] Respiratory 18 20 20 Rate Respiratory Rate [Anterior Bilateral Throughout] Respiratory Rate [Anterior Left Throughout ] Blood Pressure 114/69 114/69 116/72 O2 Sat by Pulse 98 98 98 Oximetry 09/25/18 09/25/18 09/25/18 08:11 08:21 08:30 Temperature Pulse Rate 74 75 73 Pulse Rate [ Anterior Bilateral Throughout] Pulse Rate [ Anterior Left Throughout] Respiratory 19 21 19 Rate Respiratory Rate [Anterior Bilateral Throughout] Respiratory Rate [Anterior Left Throughout ] Blood Pressure 116/72 116/72 118/62 O2 Sat by Pulse 98 98 98 Oximetry 09/25/18 09/25/18 09/25/18 08:41 08:51 09:00 Temperature Pulse Rate 77 76 75 Pulse Rate [ Anterior Bilateral Throughout] Pulse Rate [ Anterior Left Throughout] Respiratory 21 22 20 Rate Respiratory Rate [Anterior Bilateral Throughout] Respiratory Rate [Anterior Left Throughout ] Blood Pressure 118/62 118/62 117/66 O2 Sat by Pulse 93 92 93 Oximetry 09/25/18 09/25/18 09/25/18 09:11 09:26 09:28 Temperature Pulse Rate 74 Pulse Rate [ Anterior Bilateral Throughout] Pulse Rate [ 73 Anterior Left Throughout] Respiratory 19 Rate Respiratory Rate [Anterior Bilateral Throughout] Respiratory 20 Rate [Anterior Left Throughout ] Blood Pressure 117/66 O2 Sat by Pulse 95 96 Oximetry 09/25/18 09/25/18 09/25/18 09:39 11:44 11:50 Temperature 97.7 F 97.7 F Pulse Rate Pulse Rate [ 73 Anterior Bilateral Throughout] Pulse Rate [ Anterior Left Throughout] Respiratory Rate Respiratory 18 Rate [Anterior Bilateral Throughout] Respiratory Rate [Anterior Left Throughout ] Blood Pressure O2 Sat by Pulse Oximetry Constitutional: no acute distress, asleep Eyes: non-icteric ENT: oropharynx dry Neck: supple, no lymphadenopathy Ascultation: Bilateral: diminished breath sounds Cardiovascular: regular rate and rhythm Gastrointestinal: normoactive bowel sounds, soft Integumentary: normal Extremities: no cyanosis, no edema Neurologic: pupils equal and round, other (Patient sleepy.) Psychiatric: other (Patient sleeping.) CBC and BMP: 09/26/18 06:56 09/26/18 06:56 ABG, PT/INR, D-dimer: ABG POC ABG pH 7.460 (7.35-7.45) H 09/24/18 17:01 POC ABG pCO2 31.2 (35-45) L 09/24/18 17:01 POC ABG pO2 73 (80-105) L 09/24/18 17:01 POC ABG HCO3 22.1 (22-26 mml/L) 09/24/18 17:01 POC ABG Total CO2 23 (23-27mmol/L) 09/24/18 17:01 POC ABG O2 Sat 95 09/24/18 17:01 PT/INR, D-dimer PT 17.1 Sec. (12.2-14.9) H 09/24/18 05:33 INR 1.31 (0.87-1.13) H 09/24/18 05:33 Abnormal lab findings: Abnormal Labs 09/20/18 09/20/18 09/20/18 17:46 17:46 17:54 RDW 19.8 H PT 17.5 H INR 1.35 H POC ABG pH POC ABG pCO2 POC ABG pO2 Potassium BUN Creatinine 0.6 L Glucose Calcium Ammonia Total Protein Albumin 3.7 L 09/20/18 09/22/18 09/23/18 17:55 12:16 07:01 RDW PT INR POC ABG pH POC ABG pCO2 POC ABG pO2 Potassium BUN Creatinine Glucose Calcium Ammonia 88.0 H 134.0 H 106.0 H Total Protein Albumin 09/23/18 09/23/18 09/24/18 09:57 09:57 05:33 RDW 19.9 H PT 17.1 H INR 1.31 H POC ABG pH POC ABG pCO2 POC ABG pO2 Potassium 3.5 L BUN Creatinine 0.5 L Glucose 157 H Calcium 8.0 L Ammonia Total Protein 6.0 L Albumin 3.2 L 09/24/18 09/24/18 09/24/18 05:33 05:33 17:01 RDW PT INR POC ABG pH 7.460 H POC ABG pCO2 31.2 L POC ABG pO2 73 L Potassium BUN 6 L Creatinine 0.5 L Glucose 161 H Calcium Ammonia 77.0 H Total Protein Albumin CT scan - chest: report reviewed, image reviewed Additional Studies: Angio CT of chest done on 09/24/18 IMPRESSION: * No pulmonary embolus. No aortic aneurysm. No dissection. * Suspects cirrhotic liver. * Varices and splenomegaly suggest portal hypertension. Prominent soft tissue density lesion near the left infrahilar region from the GE junction to the left pulmonary vein may represent varices with collateralized return. This is relatively similar to prior. Differential diagnosis would include mass. * Suspect pulmonary vascular congestion with mild edema.
[2018-09-26] MEDS: SYNTHROID PO SCH (05:57)
[2018-09-26 07:29] LABS: Hematocrit 33.8 % (30.3-42.9); Hemoglobin 11.6 gm/dl (10.1-14.3); Mean Corpuscular HGB Conc 34 % (30-34); Mean Corpuscular Volume 89 fl (79-97); Platelet Count 137 K/mm3 (140-440); Red Blood Count 3.79 M/mm3 (3.65-5.03); Red Cell Distribution Width 19.6 % (13.2-15.2)
[2018-09-26] MEDS: DUONEB *Not for PRN Use IH SCH ×2 (07:54→19:17)
[2018-09-26] MEDS: PROAMATINE PO SCH ×3 (08:00→17:55)
[2018-09-26 08:05] LABS: Alanine Aminotransferase 24 units/L (7-56); Albumin 3.1 g/dL (3.9-5); BUN/Creatinine Ratio 18; Blood Urea Nitrogen 7 mg/dL (7-17); Calcium 8.3 mg/dL (8.4-10.2); Hemolysis Index 19
--- NOTE | 2018-09-26 08:10 | Consultation ---
History of Present Illness - Reason for Consult Consult date: 09/26/18 MRSA bacteremia Requesting physician: BERNADINE JUAN - History of Present Illness HPI: 62-year-old female with PMH of CAD, hypertension, COPD, hypothyroidism, dementia, alcohol abuse, liver cirrhosis, hepatic encephalopathy, seizures disorder, brain aneurysm, brain injury, who was brought to the ER by EMS on 09/20/18 with complaints of dark red bloody stool per rectum and increased lethargy over the last few days. History is obtained from records since patient is still confused. In the ER T 98.8, pulse 53, RR 12, SO2 97%, BP 131/67. Labs showed ammonia of 88, WBC 4.9, H/H 13.0/38.8, PLTs 160. Bun and creatinine 11/0.6. LFTs were normal. Occult blood in stool was positive. Abdominal US on 09/20/18 showed advanced cirrhosis, no ascites. Blood cultures were collected on 09/20/18 and 1 bottle has been reported with MRSA. Pt has been on vancomycin since 09/24/18. She has been on lactulose with some improvement of the encephalopathy. Her course has also been significant for acute hypoxemic respiratory failure requiring oxygen supplementation, no intubation. CXR on 09/[address] chest on 09/24 showed no PE, varices and splenomegaly and pulmonary vascular congestion with mild edema. She has remained afebrile, with normal WBC. ID is consulted to help with further antibiotic management. Microbiology: Blood cultures 09/22/18: 1 out of 4 MRSA (Vanco HUY 2). Blood cultures 09/24/18: NGTD Occult blood stool positive Current Antimicrobials: Vancomycin 09/24/18- Review of systems: Unable to obtain as pt confused. Past History Past Medical History: CAD, COPD, hypertension, hypothyroidism, seizures, other (as per HPI) Past Surgical History: Other (brain surgery) Social history: other (former alcohol abuse) Family history: no significant family history Medications and Allergies Allergies Allergy/AdvReac Type Severity Reaction Status Date / Time No Known Allergies Allergy Verified 09/20/18 17:09 Home Medications Medication Instructions Recorded Confirmed Last Taken Type Folic Acid [Folvite] 1 mg PO QDAY 11/02/13 09/22/18 06/22/17 History Multivitamin [Multi-Vitamin Daily] 1 each PO DAILY 11/02/13 09/22/18 06/22/17 History Aspirin [Aspirin BABY CHEW TAB] 1 tab PO DAILY 05/10/14 09/22/18 06/22/17 History Furosemide [Lasix TAB] 10 mg PO QDAY 08/11/17 09/22/18 Unknown History Famotidine [Pepcid] 40 mg PO QHS #30 tablet 08/16/17 09/22/18 Unknown Rx Plavix 75 mg PO DAILY #30 08/16/17 09/22/18 Unknown Rx Thiamine [Vitamin B-1] 100 mg PO QDAY #30 tablet 08/16/17 09/22/18 Unknown Rx lamoTRIgine [LaMICtal] 25 mg PO BID #50 tablet 08/16/17 09/22/18 Unknown Rx levETIRAcetam [Keppra TAB] 1,500 mg PO BID #60 tablet 08/16/17 09/22/18 Unknown Rx traZODone [Desyrel] 50 mg PO QHS PRN #30 tablet 08/16/17 09/22/18 Unknown Rx Rifaximin [Xifaxan] 550 mg PO BID #60 tablet 07/30/18 09/22/18 Unknown Rx Spironolactone [Aldactone] 50 mg PO QDAY #30 tablet 07/30/18 09/22/18 Unknown Rx ALBUTEROL NEB's [Proventil 0.083% 2.5 mg IH Q6HRT PRN #90 nebu 08/04/18 09/22/18 Unknown Rx NEBS] Ipratropium/Albuterol Sulfate 1 ampul IH TIDRT #90 ampul.neb 08/04/18 09/22/18 Unknown Rx [DUONEB *Not for PRN Use*] Midodrine [Proamatine] 5 mg PO TID@0800,1200,1600 #90 08/04/18 09/22/18 Unknown Rx tablet Fluticasone [Flonase] 1 spray NS QDAY 09/22/18 09/22/18 Unknown History Lactulose 10 gm PO QDAY 09/22/18 09/22/18 Unknown History Propranolol [Inderal] 40 mg PO QDAY 09/22/18 09/22/18 Unknown History Active Meds: Active Medications Acetaminophen (Tylenol) 650 mg PO Q4H PRN PRN Reason: Pain MILD(1-3)/Fever >100.5/PÉREZ Albuterol (Proventil) 2.5 mg IH Q4HRT PRN PRN Reason: Shortness Of Breath Albuterol/Ipratropium (Duoneb *Not For Prn Use*) 1 ampul IH BIDRT [facility] Last Admin: 09/26/18 07:54 Dose: 1 ampul Documented by: Lipase/Protease/Amylase (Sina Mix 10,500 Unit) 1 each FEEDTUBE PRN PRN PRN Reason: For Clogged Feeding Tube Lipase/Protease/Amylase (Sina Mix 10,500 Unit) 1 each FEEDTUBE PRN PRN PRN Reason: For Clogged Feeding Tube Aspirin (Baby Aspirin) 81 mg PO DAILY [facility] Last Admin: 09/25/18 09:35 Dose: 81 mg Documented by: Fluticasone Propionate (Flonase) 50 mcg NS QDAY [facility] Last Admin: 09/25/18 13:56 Dose: 50 mcg Documented by: Folic Acid (Folvite) 1 mg PO QDAY [facility] Last Admin: 09/25/18 09:35 Dose: 1 mg Documented by: Furosemide (Lasix) 20 mg PO QDAY [facility] Last Admin: 09/25/18 09:36 Dose: 20 mg Documented by: Levetiracetam 1,500 mg/ (Dextrose) 115 mls @ 400 mls/hr IV Q12HR [facility] Last Admin: 09/25/18 23:10 Dose: 400 mls/hr Documented by: Vancomycin HCl (Vancomycin/Ns 1 Gm/250 Ml) 1 gm in 250 mls @ 166.667 mls/hr IV Q12H [facility]; Protocol Last Admin: 09/25/18 23:44 Dose: 166.667 mls/hr Documented by: Lactulose (Cephulac) 30 gm PO TID [facility] Last Admin: 09/25/18 22:40 Dose: 30 gm Documented by: Lamotrigine (Lamictal) 25 mg PO BID [facility] Last Admin: 09/25/18 22:41 Dose: 25 mg Documented by: Levothyroxine Sodium (Synthroid) 75 mcg PO DAILY@0600 [facility] Last Admin: 09/26/18 05:57 Dose: 75 mcg Documented by: Midodrine (Proamatine) 5 mg PO TID@0800,1200,1600 [facility] Last Admin: 09/25/18 13:36 Dose: 5 mg Documented by: Morphine Sulfate (Morphine) 2 mg IV Q4H PRN PRN Reason: Pain, Moderate (4-6) Multivitamins (Theragran Tab) 1 each PO DAILY [facility] Last Admin: 09/25/18 09:35 Dose: 1 each Documented by: Ondansetron HCl (Zofran) 4 mg IV Q8H PRN PRN Reason: Nausea And Vomiting Pantoprazole Sodium (Protonix) 40 mg IV BID [facility] Last Admin: 09/25/18 22:41 Dose: 40 mg Documented by: Propranolol HCl (Inderal) 40 mg PO QDAY [facility] Last Admin: 09/25/18 09:36 Dose: 40 mg Documented by: Rifaximin (Xifaxan) 550 mg PO BID [facility] Last Admin: 09/25/18 22:41 Dose: 550 mg Documented by: Simple Syrup (Simple Syrup) 15 ml FEEDTUBE PRN PRN PRN Reason: Hypoglycemia Simple Syrup (Simple Syrup) 30 ml FEEDTUBE PRN PRN PRN Reason: Hypoglycemia Sodium Bicarbonate (Sodium Bicarbonate) 325 mg FEEDTUBE PRN PRN PRN Reason: For Clogged Feeding Tube Sodium Chloride (Sodium Chloride Flush Syringe 10 Ml) 10 ml IV BID [facility] Last Admin: 09/25/18 22:41 Dose: 10 ml Documented by: Spironolactone (Aldactone) 50 mg PO QDAY [facility] Last Admin: 09/25/18 13:54 Dose: 50 mg Documented by: Thiamine HCl (Vitamin B-1) 100 mg PO QDAY [facility] Last Admin: 09/25/18 09:35 Dose: 100 mg Documented by: Trazodone HCl (Desyrel) 50 mg PO QHS PRN PRN Reason: Sleep Last Admin: 09/21/18 20:54 Dose: 50 mg Documented by: Physical Examination - Physical Exam Narrative exam: General appearance: Alert, in NAD, conversant, but confused. On NC 3 lt/min. Eyes: anicteric sclerae, moist conjunctivae; no lid-lag; PERRLA HENT: Atraumatic; oropharynx clear with moist mucous membranes and no mucosal ulcerations/no oral thrush; normal hard and soft palate. Normal external ears. Neck: Trachea midline; supple, no thyromegaly or lymphadenopathy Lungs: CTA, with normal respiratory effort and no intercostal retractions CV: RRR, no murmurs Abdomen: Soft, non-tender; no masses or hepatosplenomegaly Extremities: No peripheral edema or extremity lymphadenopathy Skin: Normal temperature, turgor and texture; no rash, ulcers or subcutaneous nodules Psych: Confused Neuro: Confused. Follows some commands. Grossly non-focal Lines: No CVL / no PICC / no pineda. Has PIV and NGT. - Constitutional Vitals: Vital Signs Temp Pulse Resp BP Pulse Ox 98.3 F 80 22 117/66 93 09/26/18 00:00 09/26/18 04:00 09/26/18 04:00 09/25/18 09:11 09/26/18 04:00 Temperature -Last 24 Hours Temperature 98.3 F Temperature 97.8 F Temperature 98.1 F Temperature 97.7 F Temperature 97.7 F Results - Labs CBC & Chem 7: 09/26/18 06:56 09/26/18 06:56 Labs: Abnormal lab results 09/26/18 09/26/18 09/26/18 Range/Units 06:56 06:56 06:56 RDW 19.6 H (13.2-15.2) % Plt Count 137 L (140-440) K/mm3 Sodium 136 L (137-145) mmol/L Creatinine 0.4 L (0.7-1.2) mg/dL Glucose 130 H (65-100) mg/dL Calcium 8.3 L (8.4-10.2) mg/dL AST 41 H (5-40) units/L Alkaline Phosphatase 133 H (35-129) units/L Ammonia 92.0 H (25-60) umol/L Total Protein 5.9 L (6.3-8.2) g/dL Albumin 3.1 L (3.9-5) g/dL Assessment and Plan Assessment: 62-year-old female with PMH of CAD, hypertension, COPD, hypothyroidism, dementia, alcohol abuse, liver cirrhosis, hepatic encephalopathy, seizures disorder, brain aneurysm, brain injury, who was brought to the ER by EMS on 09/20/18 with complaints of dark red bloody stool per rectum and increased lethargy over the last few days. Found to have: 1) MRSA bacteremia. 1 out of 4 blood culture bottles positive on 09/22/18. Repeat Blood culture on 09/24/18 NGTD. Unclear source. No central lines, no skin wounds, no hardware, ?endocarditis. Vancomycin HUY 2. 2) Acute hepatic encephalopathy. Ammonia of 88 on admission. Improved on lactulose. 3) Etoh liver cirrhosis with portal hypertension and esophageal varices. No evidence of ascites on abdominal US done on admission. 4) Acute hypoxic respiratory failure, likely POA. CXR and CT chest no i nfiltrates. 5) Acute GIB. 6) H/o etoh abuse, dementia alcohol induced, brain aneurysm. Plan: -TTE has been ordered, will f/u. -Might not be a candidate for REGINALDO since has esophageal varices. -Since vancomycin HUY is 2. Will stop vancomycin and start daptomycin. -Check baseline CK. -Further recommendations as case progresses Thank you for your consultation, will follow up with you. Kym Husain MD Infectious Diseases Specialist [facility] ([facility] [phone]
[2018-09-26] MEDS: CEPHULAC PO SCH ×3 (09:41→21:45)
[2018-09-26] MEDS: FLONASE NS SCH (09:43)
[2018-09-26] MEDS: KEPPRA 1,500 MG in D5W 100 ML IV SCH ×2 (09:46→21:45)
[2018-09-26] MEDS: BABY ASPIRIN PO SCH (09:46)
[2018-09-26] MEDS: PROTONIX IV SCH ×2 (09:46→21:05)
[2018-09-26] MEDS: LASIX PO SCH (09:46)
[2018-09-26] MEDS: VITAMIN B-1 PO SCH (09:46)
[2018-09-26] MEDS: THERAGRAN Tab PO SCH (09:46)
[2018-09-26] MEDS: FOLVITE PO SCH (09:46)
[2018-09-26] MEDS: LaMICtal PO SCH ×2 (09:51→21:05)
[2018-09-26] MEDS: XIFAXAN PO SCH ×2 (09:51→21:05)
[2018-09-26] MEDS: INDERAL PO SCH (09:51)
[2018-09-26] MEDS: ALDACTONE PO SCH (09:51)
--- NOTE | 2018-09-26 12:00 | Progress Note ---
Assessment and Plan /Acute hypoxic respiratory failure, likely POA - Possible ARDS from sepsis?? pulmonary edema due to sepsis and hepatic failure ?? - Hypoxic on RA O2 sat, CXR without any infiltrates - CTA chest showed no acute PE - required non rebreather O2 to maintain sat, now on 2-3L N/c - nebs scheduled and as needed, consulted pulmonary /Bacteremia, MRSA with possible sepsis (encephalopathy, respiratory failure, worsening hepatic function from baseline), likely POA - 1 out of 4 blood culture bottles positive on 09/22/18. 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 ETOH abuse with varices and HE -GI consulted, no planned for endoscopy if H&H remains stable - Already has outpatient follow-up - cont Protonix, IVF for hydration as needed /Acute on chronic encephalopathy, present on admission - Likely Hepatic encephalopathy (ammonia trended upto 138) - -abdominal U/S showed advanced cirrhosis and gallstones but no mass or ascites - Continue lactulose with NG tube as patient unable to take po due to AMS, monitor response - Mental status much improved now with lactulose /Hepatic cirrhosis with portal hypertension and esophageal varices - Due to alcohol abuse -GI following, continue to monitor clinically Other chronic issues: Hypertension H/o CAD H/o alcohol abuse H/o seizures disorder H/o brain aneurysm Hypothyroidism H/o dementia, alcohol induced - cont home meds, supportive care, hold plavix - No heparin for DVT prophylasix due to bleeding, placed on SCD - cont TF as unable to take po, Brief History: Patient is a 62-year-old female with PMHx of CAD, hypertension, COPD, hypothyroidism, dementia, alcohol abuse, liver cirrhosis, h/o hepatic encephalopathy, seizures disorder, and brain aneurysm, brain injury, who was brought to the ER by EMS for complaints of bloody dark red stool in the morning. In the ER, her ammonia level was 88, pt is admitted for further evaluation and treatment. CTA chest 09/24/18: * No pulmonary embolus. No aortic aneurysm. No dissection. * Suspects cirrhotic liver. * Varices and splenomegaly suggest portal hypertension. Prominent soft tissue density lesion near the left infrahilar region from the GE junction to the left pulmonary vein may represent varices with collateralized return. This is relatively similar to prior. Differential diagnosis would include mass. * Suspect pulmonary vascular congestion with mild edema. Hospitalist Physical exam: GENERAL: well-developed elderly WF lying on bed appeared to be in no discomfort. alert and awake HEENT: Normocephalic. Atraumatic. No conjunctival congestion or icterus. Patient has moist mucous membranes. NECK: Supple. Trachea midline. CHEST/LUNGS: on N/c, breathing nonlabored. No wheezes crackles or rhonchi. HEART/CARDIOVASCULAR: Regular in rate and rhythm. S1 and S2 positive. ABDOMEN: Abdomen is soft, nontender. Patient has normal bowel sounds. SKIN: There is no rash. Warm and dry. NEURO: Follows command. oriented to person and place MUSCULOSKELETAL: No joint effusion or tenderness. EXTRIMITY: No edema, no cyanosis or clubbing. PSYCH: Cooperative Subjective Date of service: 09/26/18 Principal diagnosis: rectal bleeding, cirrhosis Interval history: Patient seen and examined. Medical records and medication list reviewed. Patient more alert today and on N/C Discussed plan of care at bedside with RN Objective - Constitutional Vitals: Vital Signs - 12hr 09/26/18 09/26/18 09/26/18 04:00 08:00 09:00 Temperature 97.9 F Pulse Rate [ 80 Anterior Left Throughout] Pulse Rate [ 80 From Monitor] Respiratory 22 Rate Respiratory 22 Rate [Anterior Left Throughout ] O2 Sat by Pulse 93 Oximetry 09/26/18 09:10 Temperature Pulse Rate [ 80 Anterior Left Throughout] Pulse Rate [ From Monitor] Respiratory Rate Respiratory 22 Rate [Anterior Left Throughout ] O2 Sat by Pulse Oximetry - Labs CBC & Chem 7: 09/29/18 08:48 10/03/18 05:40 Labs: Abnormal lab results 09/26/18 09/26/18 09/26/18 Range/Units 06:56 06:56 06:56 RDW 19.6 H (13.2-15.2) % Plt Count 137 L (140-440) K/mm3 Sodium 136 L (137-145) mmol/L Creatinine 0.4 L (0.7-1.2) mg/dL Glucose 130 H (65-100) mg/dL Calcium 8.3 L (8.4-10.2) mg/dL AST 41 H (5-40) units/L Alkaline Phosphatase 133 H (35-129) units/L Ammonia 92.0 H (25-60) umol/L Total Protein 5.9 L (6.3-8.2) g/dL Albumin 3.1 L (3.9-5) g/dL
--- NOTE | 2018-09-26 13:40 | Gastroenterology Progress Note ---
Assessment and Plan Liver: etoh cirrhosis w/ signs encephalopathy - more alert to day but still confused - ammonia level still elevated - continue Lactulose 30cc po tid w/ Xifaxan and ensure adequate bowel movement - follow labs - no changes at this time GI: no signs bleeding - follow h/h - will follow Subjective Date of service: 09/26/18 Principal diagnosis: rectal bleeding, cirrhosis Interval history: - pt more alert but still confused. No signs bleeding. No other GI issues overnight Objective - Constitutional Vitals: Temp Pulse Resp BP Pulse Ox 97.9 F 80 22 117/66 93 09/26/18 08:00 09/26/18 09:10 09/26/18 09:10 09/25/18 09:11 09/26/18 04:00 General appearance: no acute distress - EENT Eyes: PERRL - Respiratory Respiratory: bilateral: CTA - Cardiovascular Rhythm: regular Heart Sounds: Present: S1 & S2 - Gastrointestinal General gastrointestinal: Present: soft, non-tender, non-distended - Labs CBC & Chem 7: 09/26/18 06:56 09/26/18 06:56 Labs: Laboratory Results - last 24 hr 09/26/18 09/26/18 09/26/18 06:56 06:56 06:56 WBC 9.5 RBC 3.79 Hgb 11.6 Hct 33.8 MCV 89 MCH 31 MCHC 34 RDW 19.6 H Plt Count 137 L Sodium 136 L Potassium 3.6 Chloride 99.5 Carbon Dioxide 22 Anion Gap 18 BUN 7 Creatinine 0.4 L Estimated GFR > 60 BUN/Creatinine Ratio 18 Glucose 130 H Calcium 8.3 L Total Bilirubin 1.00 AST 41 H ALT 24 Alkaline Phosphatase 133 H Ammonia 92.0 H Total Creatine Kinase Total Protein 5.9 L Albumin 3.1 L Albumin/Globulin Ratio 1.1 09/26/18 06:56 WBC RBC Hgb Hct MCV MCH MCHC RDW Plt Count Sodium Potassium Chloride Carbon Dioxide Anion Gap BUN Creatinine Estimated GFR BUN/Creatinine Ratio Glucose Calcium Total Bilirubin AST ALT Alkaline Phosphatase Ammonia Total Creatine Kinase 87 Total Protein Albumin Albumin/Globulin Ratio
[2018-09-26] MEDS: SODIUM CHLORIDE FLUSH SYRINGE 10 ML IV SCH ×2 (13:52→21:06)
[2018-09-26] MEDS: NACL 0.9% IV SCH (13:56)
[2018-09-26] MEDS: DAPTOMYCIN IV SCH (13:56)
[2018-09-26] MEDS: TYLENOL PO PRN (21:05)
--- NOTE | 2018-09-26 21:09 | Progress Note ---
Assessment and Plan Patient sleeping . No acute respiratory distress.Patient is on 3 litres O2. O2 saturation 95%. - Patient Problems (1) Acute respiratory failure with hypoxia Current Visit: No Status: Acute Plan to address problem: On 3 litres O2. o2 saturation 95%. Albuterol/atrovent aerosol treatments q 6 hours. SCDs Continue Protonix. (2) Hepatic encephalopathy syndrome Current Visit: Yes Status: Acute Plan to address problem: Patient is on Lactulose. Mangement as per Primary care and GI. (3) Cirrhosis, alcoholic Current Visit: Yes Status: Chronic Plan to address problem: Management as per GI. (4) GI bleed Current Visit: No Status: Acute Plan to address problem: Management as per GI. Subjective Date of service: 09/26/18 Principal diagnosis: rectal bleeding, cirrhosis Interval history: Patient sleeping . No acute respiratory distress.Patient is on 3 litres O2. O2 saturation 95%. Objective Vital Signs - 12hr 09/26/18 09/26/18 09/26/18 09:10 12:00 16:00 Temperature 98.0 F 98.6 F Pulse Rate [ 80 Anterior Left Throughout] Pulse Rate [ 80 From Monitor] Respiratory 22 Rate Respiratory 22 Rate [Anterior Left Throughout ] O2 Sat by Pulse 93 Oximetry 09/26/18 09/26/18 09/26/18 19:17 19:19 19:27 Temperature Pulse Rate [ 71 73 Anterior Left Throughout] Pulse Rate [ From Monitor] Respiratory Rate Respiratory 16 22 Rate [Anterior Left Throughout ] O2 Sat by Pulse 95 Oximetry 09/26/18 09/26/18 19:54 20:00 Temperature 99.8 F H Pulse Rate [ Anterior Left Throughout] Pulse Rate [ 72 From Monitor] Respiratory 20 Rate Respiratory Rate [Anterior Left Throughout ] O2 Sat by Pulse 94 Oximetry Constitutional: no acute distress, asleep Eyes: non-icteric ENT: oropharynx dry Neck: supple, no lymphadenopathy Ascultation: Bilateral: diminished breath sounds Cardiovascular: regular rate and rhythm Gastrointestinal: normoactive bowel sounds, soft, non-tender Integumentary: normal, rash Extremities: no cyanosis, no edema Neurologic: pupils equal and round, other (Patient sleeping.) Psychiatric: other (Patient sleepy.) CBC and BMP: 09/26/18 06:56 09/26/18 06:56 ABG, PT/INR, D-dimer: ABG POC ABG pH 7.460 (7.35-7.45) H 09/24/18 17:01 POC ABG pCO2 31.2 (35-45) L 09/24/18 17:01 POC ABG pO2 73 (80-105) L 09/24/18 17:01 POC ABG HCO3 22.1 (22-26 mml/L) 09/24/18 17:01 POC ABG Total CO2 23 (23-27mmol/L) 09/24/18 17:01 POC ABG O2 Sat 95 09/24/18 17:01 PT/INR, D-dimer PT 17.1 Sec. (12.2-14.9) H 09/24/18 05:33 INR 1.31 (0.87-1.13) H 09/24/18 05:33 Abnormal lab findings: Abnormal Labs 09/20/18 09/20/18 09/20/18 17:46 17:46 17:54 RDW 19.8 H Plt Count PT 17.5 H INR 1.35 H POC ABG pH POC ABG pCO2 POC ABG pO2 Sodium Potassium BUN Creatinine 0.6 L Glucose Calcium AST Alkaline Phosphatase Ammonia Total Protein Albumin 3.7 L 09/20/18 09/22/18 09/23/18 17:55 12:16 07:01 RDW Plt Count PT INR POC ABG pH POC ABG pCO2 POC ABG pO2 Sodium Potassium BUN Creatinine Glucose Calcium AST Alkaline Phosphatase Ammonia 88.0 H 134.0 H 106.0 H Total Protein Albumin 09/23/18 09/23/18 09/24/18 09:57 09:57 05:33 RDW 19.9 H Plt Count PT 17.1 H INR 1.31 H POC ABG pH POC ABG pCO2 POC ABG pO2 Sodium Potassium 3.5 L BUN Creatinine 0.5 L Glucose 157 H Calcium 8.0 L AST Alkaline Phosphatase Ammonia Total Protein 6.0 L Albumin 3.2 L 09/24/18 09/24/18 09/24/18 05:33 05:33 17:01 RDW Plt Count PT INR POC ABG pH 7.460 H POC ABG pCO2 31.2 L POC ABG pO2 73 L Sodium Potassium BUN 6 L Creatinine 0.5 L Glucose 161 H Calcium AST Alkaline Phosphatase Ammonia 77.0 H Total Protein Albumin 0509/26/18 09/26/18 06:56 06:56 06:56 RDW 19.6 H Plt Count 137 L PT INR POC ABG pH POC ABG pCO2 POC ABG pO2 Sodium 136 L Potassium BUN Creatinine 0.4 L Glucose 130 H Calcium 8.3 L AST 41 H Alkaline Phosphatase 133 H Ammonia 92.0 H Total Protein 5.9 L Albumin 3.1 L
[2018-09-27] MEDS ORDERED: BENADRYL IV ONE (01:57)
[2018-09-27] MEDS ORDERED: SOLU-Medrol IV ONE (01:57)
[2018-09-27] MEDS: SYNTHROID PO SCH ×2 (05:08→05:11)
[2018-09-27 06:04] LABS: Basophils % (Auto) 0.4 % (0.0-1.8); Eosinophils # (Auto) 0.1 K/mm3 (0.0-0.4); Eosinophils % (Auto) 0.8 % (0.0-4.3); Hematocrit 31.1 % (30.3-42.9); Hemoglobin 10.8 gm/dl (10.1-14.3); Lymphocytes # (Auto) 0.5 K/mm3 (1.2-5.4); Lymphocytes % (Auto) 6.9 % (13.4-35.0); Mean Corpuscular HGB Conc 35 % (30-34); Mean Corpuscular Volume 88 fl (79-97); Monocytes # (Auto) 0.6 K/mm3 (0.0-0.8); Monocytes % (Auto) 9.5 % (0.0-7.3); Platelet Count 122 K/mm3 (140-440); Red Blood Count 3.53 M/mm3 (3.65-5.03); Red Cell Distribution Width 19.3 % (13.2-15.2)
[2018-09-27] MEDS: DUONEB *Not for PRN Use IH SCH ×2 (08:48→21:51)
[2018-09-27] MEDS: KEPPRA 1,500 MG in D5W 100 ML IV SCH (09:40)
[2018-09-27] MEDS: CEPHULAC PO SCH ×3 (09:41→20:48)
[2018-09-27] MEDS: PROAMATINE PO SCH ×2 (09:42→15:09)
[2018-09-27] MEDS: ALDACTONE PO SCH (09:42)
[2018-09-27] MEDS: BABY ASPIRIN PO SCH (09:43)
[2018-09-27] MEDS: FLONASE NS SCH (09:43)
[2018-09-27] MEDS: FOLVITE PO SCH (09:43)
[2018-09-27] MEDS: LaMICtal PO SCH ×2 (09:44→22:28)
[2018-09-27] MEDS: INDERAL PO SCH (09:44)
[2018-09-27] MEDS: PROTONIX IV SCH (09:44)
[2018-09-27] MEDS: SODIUM CHLORIDE FLUSH SYRINGE 10 ML IV SCH ×2 (09:44→21:58)
[2018-09-27] MEDS: LASIX PO SCH (09:44)
[2018-09-27] MEDS: THERAGRAN Tab PO SCH (09:44)
[2018-09-27] MEDS: VITAMIN B-1 PO SCH (09:45)
[2018-09-27] MEDS: XIFAXAN PO SCH ×2 (09:45→21:59)
--- NOTE | 2018-09-27 11:01 | Progress Note ---
Assessment and Plan Cultures: Blood cultures 09/22/18: 1 out of 4 MRSA (Vanco HUY 2). Blood cultures 09/24/18: NGTD Occult blood stool positive Assessment: 62-year-old female with PMH of CAD, hypertension, COPD, hypothyroidism, dementia, alcohol abuse, liver cirrhosis, hepatic encephalopathy, seizures disorder, brain aneurysm, brain injury, who was brought to the ER by EMS on 09/20/18 with complaints of dark red bloody stool per rectum and increased lethargy over the last few days. Found to have: 1) MRSA bacteremia. 1 out of 4 blood culture bottles positive on 09/22/18. Repeat Blood culture on 09/24/18 NGTD. Unclear source. No central lines, no skin wounds, no hardware, ?endocarditis. Vancomycin HUY 2. TTE no vegetations. Unclear source. 2) Acute hepatic encephalopathy. Ammonia of 88 on admission. Improved on lactulose. 3) ETOH liver cirrhosis with portal hypertension and esophageal varices. No evidence of ascites on abdominal US done on admission. 4) Acute hypoxic respiratory failure, likely POA. CXR and CT chest no infiltrates. 5) Acute GIB. 6) H/o etoh abuse, dementia alcohol induced, brain aneurysm. 7) Thrombocytopenia: ? cirrhosis Plan: -continue daptomycin for now -place PICC for daptomycin 400 mg IV qday total 14 days until 10/07/2018. Order sent to pillowcase cleaner for approval. Will follow Maddy Kaba MD Infectious Diseases Ad[employer] [facility] [id number] [phone] O [phone] Subjective Date of service: 09/27/18 Principal diagnosis: rectal bleeding, cirrhosis Interval history: Patient feels better, denies fever, chills, N/V/D ROS: as above rest neg Objective - Exam Narrative Exam: General appearance: Alert, in NAD, conversant, on NC O2 Eyes: anicteric sclerae, moist conjunctivae; no lid-lag; PERRLA HENT: Atraumatic; oropharynx clear with moist mucous membranes and no mucosal ulcerations/no oral thrush;+NGT Neck: Trachea midline; supple, no thyromegaly or lymphadenopathy Lungs: CTA, with normal respiratory effort and no intercostal retractions CV: RRR, no murmurs Abdomen: Soft, non-tender; no masses or hepatosplenomegaly Extremities: No peripheral edema or extremity lymphadenopathy Skin: Normal temperature, turgor and texture; no rash, ulcers or subcutaneous nodules Psych: alert no agitated Neuro: alert, follows commands. Grossly non-focal Lines: No CVL / no PICC / no pineda. Has PIV and NGT. - Constitutional Vitals: Vital Signs Temp Pulse Resp BP Pulse Ox 97.8 F 68 15 116/62 92 09/27/18 08:53 09/27/18 09:44 09/27/18 08:50 09/27/18 09:44 09/27/18 08:49 Temperature -Last 24 Hours Temperature 97.8 F Temperature 99.3 F Temperature 99.6 F Temperature 99.8 F Temperature 98.6 F Temperature 98.0 F - Labs CBC & Chem 7: 09/27/18 05:43 09/26/18 06:56 Labs: Abnormal lab results 09/27/18 09/27/18 Range/Units 05:43 05:43 RBC 3.53 L (3.65-5.03) M/mm3 MCHC 35 H (30-34) % RDW 19.3 H (13.2-15.2) % Plt Count 122 L (140-440) K/mm3 Lymph % (Auto) 6.9 L (13.4-35.0) % [place] % (Auto) 9.5 H (0.0-7.3) % Lymph # 0.5 L (1.2-5.4) K/mm3 Seg Neutrophils % 82.4 H (40.0-70.0) % Ammonia 65.0 H (25-60) umol/L
--- NOTE | 2018-09-27 13:57 | Progress Note ---
Assessment and Plan /Acute hypoxic respiratory failure, likely POA - Possible ARDS from sepsis?? pulmonary edema due to sepsis and hepatic failure ?? - Hypoxic on RA O2 sat, CXR without any infiltrates - CTA chest showed no acute PE - required non rebreather O2 to maintain sat, now on 2-3L N/c - nebs scheduled and as needed, consulted pulmonary /Bacteremia, MRSA with possible sepsis (encephalopathy, respiratory failure, worsening hepatic function from baseline), likely POA - 1 out of 4 blood culture bottles positive on 09/22/18. Repeat Blood culture on 09/24/18 NGTD - placed on vancomycin then changed to daptomycin - contact isolation, ID consulted, no vegetation on TTE with preserved EF - place PICC for daptomycin 400 mg IV qday total 14 days until 10/07/2018. Order sent to caseworker for approval by ID. / Acute GIB (etiology unclear) - Continue to monitor H&H, which is stable so far -etiology-patient has a hx of alcoholic cirrhosis 2/2 former ETOH abuse with varices and HE -GI consulted, no planned for endoscopy if H&H remains stable - Already has outpatient follow-up - cont Protonix, IVF for hydration as needed /Acute on chronic encephalopathy, present on admission - Likely Hepatic encephalopathy (ammonia trended upto 138) - -abdominal U/S showed advanced cirrhosis and gallstones but no mass or ascites - Continue lactulose with NG tube as patient unable to take po due to AMS, monitor response - Mental status much improved now with lactulose /Hepatic cirrhosis with portal hypertension and esophageal varices - Due to alcohol abuse -GI following, continue to monitor clinically Other chronic issues: Hypertension H/o CAD H/o alcohol abuse H/o seizures disorder H/o brain aneurysm Hypothyroidism H/o dementia, alcohol induced - cont home meds, supportive care, hold plavix - No heparin for DVT prophylasix due to bleeding, placed on SCD - start mechanical soft diet today as passed swallow screen Brief History: Patient is a 62-year-old female with PMHx of CAD, hypertension, COPD, hypothyroidism, dementia, alcohol abuse, liver cirrhosis, h/o hepatic encephalopathy, seizures disorder, and brain aneurysm, brain injury, who was brought to the ER by EMS for complaints of bloody dark red stool in the morning. In the ER, her ammonia level was 88, pt is admitted for further evaluation and treatment. She was refusing PO and mental status and respiratory status continue to decline. Lactulose started with NG tube, blood cx grew MRSA. ID consulted for abx recommendation. CTA chest 09/24/18: * No pulmonary embolus. No aortic aneurysm. No dissection. * Suspects cirrhotic liver. * Varices and splenomegaly suggest portal hypertension. Prominent soft tissue density lesion near the left infrahilar region from the GE junction to the left pulmonary vein may represent varices with collateralized return. This is relatively similar to prior. Differential diagnosis would include mass. * Suspect pulmonary vascular congestion with mild edema. Hospitalist Physical exam: GENERAL: well-developed elderly WF lying on bed appeared to be in no discomfort. alert and awake HEENT: Normocephalic. Atraumatic. No conjunctival congestion or icterus. Patient has moist mucous membranes. NECK: Supple. Trachea midline. CHEST/LUNGS: on N/c, breathing nonlabored. No wheezes crackles or rhonchi. HEART/CARDIOVASCULAR: Regular in rate and rhythm. S1 and S2 positive. ABDOMEN: Abdomen is soft, nontender. Patient has normal bowel sounds. SKIN: There is no rash. Warm and dry. NEURO: Follows command. oriented to person and place MUSCULOSKELETAL: No joint effusion or tenderness. EXTRIMITY: No edema, no cyanosis or clubbing. PSYCH: Cooperative Subjective Date of service: 09/27/18 Principal diagnosis: rectal bleeding, cirrhosis Interval history: Patient seen and examined. Medical records and medication list reviewed. Patient more alert today and on N/C Discussed plan of care at bedside with RN. Passed the swallow eval today Objective - Constitutional Vitals: Vital Signs - 12hr 09/27/18 09/27/18 09/27/18 04:00 04:36 08:00 Temperature 99.3 F Pulse Rate Pulse Rate [ 64 Anterior Left Throughout] Pulse Rate [ 68 64 From Monitor] Respiratory 16 17 Rate Respiratory 13 Rate [Anterior Left Throughout ] Blood Pressure O2 Sat by Pulse 96 95 Oximetry 09/27/18 09/27/18 09/27/18 08:49 08:50 08:53 Temperature 97.8 F Pulse Rate Pulse Rate [ 64 Anterior Left Throughout] Pulse Rate [ From Monitor] Respiratory Rate Respiratory 15 Rate [Anterior Left Throughout ] Blood Pressure O2 Sat by Pulse 92 Oximetry 09/27/18 09/27/18 09:42 09:44 Temperature Pulse Rate 68 68 Pulse Rate [ Anterior Left Throughout] Pulse Rate [ From Monitor] Respiratory Rate Respiratory Rate [Anterior Left Throughout ] Blood Pressure 116/62 116/62 O2 Sat by Pulse Oximetry - Labs CBC & Chem 7: 09/27/18 05:43 09/26/18 06:56 Labs: Abnormal lab results 09/27/18 09/27/18 Range/Units 05:43 05:43 RBC 3.53 L (3.65-5.03) M/mm3 MCHC 35 H (30-34) % RDW 19.3 H (13.2-15.2) % Plt Count 122 L (140-440) K/mm3 Lymph % (Auto) 6.9 L (13.4-35.0) % [place] % (Auto) 9.5 H (0.0-7.3) % Lymph # 0.5 L (1.2-5.4) K/mm3 Seg Neutrophils % 82.4 H (40.0-70.0) % Ammonia 65.0 H (25-60) umol/L
[2018-09-27] MEDS: NACL 0.9% IV SCH (15:10)
[2018-09-27] MEDS: DAPTOMYCIN IV SCH (15:10)
--- NOTE | 2018-09-27 15:28 | Gastroenterology Progress Note ---
Assessment and Plan 1.H/o alcoholic cirrhosis with varices 2.hepatic encephalopathy 3.rectal bleeding (caregiver reports intermittent BRBPR following BMs x last few months) -afebrile -WBC WNL (7.1) -H/H WNL -INR and LFTs stable -ammonia 65-trending down -abdominal U/S showed advanced cirrhosis and gallstones but no mass or ascites -etiology-patient has a hx of alcoholic cirrhosis 2/2 former ETOH abuse with varices and HE -clinically, patient remains slight confused. No evidence of abd pain, N/V, or active signs of bleeding. Tolerating TFs via NGT. -no plan for scope at this time unless overt bleeding develops (scheduled for outpatient EGD/colonoscopy next month-10/[address] Barajas) -continue PPI, diuretics, xifaxan, propranalol, and lactulose (titrate to goal of BMs x 3/day) -continue to trend labs and supportive care -will follow Subjective Date of service: 09/27/18 Principal diagnosis: rectal bleeding, cirrhosis Interval history: No acute distress. Patient remains slightly confused. No evidence of abd pain, N/V, or active signs of bleeding. Tolerating TFs via NGT. Objective - Constitutional Vitals: Temp Pulse Resp BP Pulse Ox 97.8 F 68 15 116/62 92 09/27/18 08:53 09/27/18 09:44 09/27/18 08:50 09/27/18 09:44 09/27/18 08:49 General appearance: no acute distress - Respiratory Respiratory: bilateral: diminished - Cardiovascular Rhythm: regular - Gastrointestinal General gastrointestinal: Present: soft, non-tender, non-distended, normal bowel sounds - Labs CBC & Chem 7: 09/27/18 05:43 09/26/18 06:56 Labs: Laboratory Results - last 24 hr 09/27/18 09/27/18 05:43 05:43 WBC 6.8 RBC 3.53 L Hgb 10.8 Hct 31.1 MCV 88 MCH 31 MCHC 35 H RDW 19.3 H Plt Count 122 L Lymph % (Auto) 6.9 L [place] % (Auto) 9.5 H Eos % (Auto) 0.8 Baso % (Auto) 0.4 Lymph # 0.5 L [place] # 0.6 Eos # 0.1 Baso # 0.0 Seg Neutrophils % 82.4 H Seg Neutrophils # 5.6 Ammonia 65.0 H
--- NOTE | 2018-09-27 18:34 | Progress Note ---
Assessment and Plan Patient awake.Patient weak. Resting in bed. No acute respiratory distress.Patient is on 2 litres O2. O2 saturation 92%. - Patient Problems (1) Acute respiratory failure with hypoxia Current Visit: No Status: Acute Plan to address problem: On 2 litres O2. o2 saturation 92%. Albuterol/atrovent aerosol treatments q 6 hours. SCDs Continue Protonix. (2) Hepatic encephalopathy syndrome Current Visit: Yes Status: Acute Plan to address problem: Patient is on Lactulose. Mangement as per Primary care and GI. (3) Cirrhosis, alcoholic Current Visit: Yes Status: Chronic Plan to address problem: Management as per GI. (4) GI bleed Current Visit: No Status: Acute Plan to address problem: Management as per GI. Subjective Date of service: 09/27/18 Principal diagnosis: rectal bleeding, cirrhosis Interval history: Patient awake.Patient weak. Resting in bed. No acute respiratory distress.Patient is on 2 litres O2. O2 saturation 92%. Objective Vital Signs - 12hr 09/27/18 09/27/18 09/27/18 06:21 06:31 06:41 Temperature Pulse Rate 69 76 73 Pulse Rate [ Anterior Left Throughout] Pulse Rate [ From Monitor] Respiratory 16 16 13 Rate Respiratory Rate [Anterior Left Throughout ] Blood Pressure 113/58 113/58 113/58 O2 Sat by Pulse 94 93 90 Oximetry 09/27/18 09/27/18 09/27/18 06:51 07:00 07:11 Temperature Pulse Rate 68 72 67 Pulse Rate [ Anterior Left Throughout] Pulse Rate [ From Monitor] Respiratory 17 14 Rate Respiratory Rate [Anterior Left Throughout ] Blood Pressure 113/58 109/64 109/64 O2 Sat by Pulse 92 Oximetry 09/27/18 09/27/18 09/27/18 07:21 07:31 07:41 Temperature Pulse Rate 68 66 66 Pulse Rate [ Anterior Left Throughout] Pulse Rate [ From Monitor] Respiratory 14 12 15 Rate Respiratory Rate [Anterior Left Throughout ] Blood Pressure 109/64 109/64 109/64 O2 Sat by Pulse 98 95 Oximetry 09/27/18 09/27/18 09/27/18 07:51 08:00 08:11 Temperature Pulse Rate 68 67 67 Pulse Rate [ 64 Anterior Left Throughout] Pulse Rate [ 64 From Monitor] Respiratory 16 9 L 10 L Rate Respiratory 13 Rate [Anterior Left Throughout ] Blood Pressure 109/64 109/59 109/59 O2 Sat by Pulse 95 96 92 Oximetry 09/27/18 09/27/18 09/27/18 08:21 08:30 08:41 Temperature Pulse Rate 66 68 70 Pulse Rate [ Anterior Left Throughout] Pulse Rate [ From Monitor] Respiratory 16 10 L 14 Rate Respiratory Rate [Anterior Left Throughout ] Blood Pressure 109/59 113/58 109/59 O2 Sat by Pulse 92 93 91 Oximetry 09/27/18 09/27/18 09/27/18 08:49 08:50 08:51 Temperature Pulse Rate 64 Pulse Rate [ 64 Anterior Left Throughout] Pulse Rate [ From Monitor] Respiratory 14 Rate Respiratory 15 Rate [Anterior Left Throughout ] Blood Pressure 109/59 O2 Sat by Pulse 92 98 Oximetry 09/27/18 09/27/18 09/27/18 08:53 09:00 09:11 Temperature 97.8 F Pulse Rate 66 71 Pulse Rate [ Anterior Left Throughout] Pulse Rate [ From Monitor] Respiratory 17 13 Rate Respiratory Rate [Anterior Left Throughout ] Blood Pressure 116/62 109/59 O2 Sat by Pulse 93 91 Oximetry 09/27/18 09/27/18 09/27/18 09:21 09:30 09:41 Temperature Pulse Rate 70 71 69 Pulse Rate [ Anterior Left Throughout] Pulse Rate [ From Monitor] Respiratory 14 16 20 Rate Respiratory Rate [Anterior Left Throughout ] Blood Pressure 109/59 116/62 109/59 O2 Sat by Pulse Oximetry 09/27/18 09/27/18 09/27/18 09:42 09:44 09:51 Temperature Pulse Rate 68 68 70 Pulse Rate [ Anterior Left Throughout] Pulse Rate [ From Monitor] Respiratory 18 Rate Respiratory Rate [Anterior Left Throughout ] Blood Pressure 116/62 116/62 109/59 O2 Sat by Pulse 94 Oximetry 09/27/18 09/27/18 09/27/18 10:01 10:11 10:21 Temperature Pulse Rate 67 68 67 Pulse Rate [ Anterior Left Throughout] Pulse Rate [ From Monitor] Respiratory 17 17 15 Rate Respiratory Rate [Anterior Left Throughout ] Blood Pressure 109/59 116/62 116/62 O2 Sat by Pulse 95 93 94 Oximetry 09/27/18 09/27/18 09/27/18 10:31 10:41 10:51 Temperature Pulse Rate 66 67 63 Pulse Rate [ Anterior Left Throughout] Pulse Rate [ From Monitor] Respiratory 20 15 17 Rate Respiratory Rate [Anterior Left Throughout ] Blood Pressure 118/62 118/62 118/62 O2 Sat by Pulse 93 93 93 Oximetry 09/27/18 09/27/18 09/27/18 11:00 11:11 11:21 Temperature Pulse Rate 62 66 64 Pulse Rate [ Anterior Left Throughout] Pulse Rate [ From Monitor] Respiratory 16 20 18 Rate Respiratory Rate [Anterior Left Throughout ] Blood Pressure 110/59 110/59 110/59 O2 Sat by Pulse 94 91 93 Oximetry 09/27/18 09/27/18 11:31 17:53 Temperature 97.7 F Pulse Rate 64 70 Pulse Rate [ Anterior Left Throughout] Pulse Rate [ From Monitor] Respiratory 18 16 Rate Respiratory Rate [Anterior Left Throughout ] Blood Pressure 110/59 110/75 O2 Sat by Pulse 92 87 Oximetry Constitutional: no acute distress, alert Eyes: non-icteric ENT: oropharynx dry Neck: supple, no lymphadenopathy Ascultation: Bilateral: diminished breath sounds Cardiovascular: regular rate and rhythm Gastrointestinal: normoactive bowel sounds, soft, non-tender Integumentary: normal, rash Extremities: no cyanosis, no edema Neurologic: pupils equal and round Psychiatric: other (Patient awake and confused.) CBC and BMP: 09/27/18 05:43 09/26/18 06:56 ABG, PT/INR, D-dimer: ABG POC ABG pH 7.460 (7.35-7.45) H 09/24/18 17:01 POC ABG pCO2 31.2 (35-45) L 09/24/18 17:01 POC ABG pO2 73 (80-105) L 09/24/18 17:01 POC ABG HCO3 22.1 (22-26 mml/L) 09/24/18 17:01 POC ABG Total CO2 23 (23-27mmol/L) 09/24/18 17:01 POC ABG O2 Sat 95 09/24/18 17:01 PT/INR, D-dimer PT 17.1 Sec. (12.2-14.9) H 09/24/18 05:33 INR 1.31 (0.87-1.13) H 09/24/18 05:33 Abnormal lab findings: Abnormal Labs 09/20/18 09/20/18 09/20/18 17:46 17:46 17:54 RBC MCHC RDW 19.8 H Plt Count Lymph % (Auto) [place] % (Auto) Lymph # Seg Neutrophils % PT 17.5 H INR 1.35 H POC ABG pH POC ABG pCO2 POC ABG pO2 Sodium Potassium BUN Creatinine 0.6 L Glucose Calcium AST Alkaline Phosphatase Ammonia Total Protein Albumin 3.7 L 09/20/18 09/22/18 09/23/18 17:55 12:16 07:01 RBC MCHC RDW Plt Count Lymph % (Auto) [place] % (Auto) Lymph # Seg Neutrophils % PT INR POC ABG pH POC ABG pCO2 POC ABG pO2 Sodium Potassium BUN Creatinine Glucose Calcium AST Alkaline Phosphatase Ammonia 88.0 H 134.0 H 106.0 H Total Protein Albumin 09/23/18 09/23/18 09/24/18 09:57 09:57 05:33 RBC MCHC RDW 19.9 H Plt Count Lymph % (Auto) [place] % (Auto) Lymph # Seg Neutrophils % PT 17.1 H INR 1.31 H POC ABG pH POC ABG pCO2 POC ABG pO2 Sodium Potassium 3.5 L BUN Creatinine 0.5 L Glucose 157 H Calcium 8.0 L AST Alkaline Phosphatase Ammonia Total Protein 6.0 L Albumin 3.2 L 09/24/18 09/24/18 09/24/18 05:33 05:33 17:01 RBC MCHC RDW Plt Count Lymph % (Auto) [place] % (Auto) Lymph # Seg Neutrophils % PT INR POC ABG pH 7.460 H POC ABG pCO2 31.2 L POC ABG pO2 73 L Sodium Potassium BUN 6 L Creatinine 0.5 L Glucose 161 H Calcium AST Alkaline Phosphatase Ammonia 77.0 H Total Protein Albumin 09/26/18 09/26/18 09/26/18 06:56 06:56 06:56 RBC MCHC RDW 19.6 H Plt Count 137 L Lymph % (Auto) [place] % (Auto) Lymph # Seg Neutrophils % PT INR POC ABG pH POC ABG pCO2 POC ABG pO2 Sodium 136 L Potassium BUN Creatinine 0.4 L Glucose 130 H Calcium 8.3 L AST 41 H Alkaline Phosphatase 133 H Ammonia 92.0 H Total Protein 5.9 L Albumin 3.1 L 09/27/18 09/27/18 05:43 05:43 RBC 3.53 L MCHC 35 H RDW 19.3 H Plt Count 122 L Lymph % (Auto) 6.9 L [place] % (Auto) 9.5 H Lymph # 0.5 L Seg Neutrophils % 82.4 H PT INR POC ABG pH POC ABG pCO2 POC ABG pO2 Sodium Potassium BUN Creatinine Glucose Calcium AST Alkaline Phosphatase Ammonia 65.0 H Total Protein Albumin
[2018-09-27] MEDS: PREVACID SOLUTAB FEEDTUBE SCH (21:59)
[2018-09-28] MEDS: SYNTHROID PO SCH ×2 (06:37→06:39)
[2018-09-28 07:49] LABS: Hematocrit 30.7 % (30.3-42.9); Hemoglobin 10.5 gm/dl (10.1-14.3)
--- NOTE | 2018-09-28 09:29 | Progress Note ---
Assessment and Plan Cultures: Blood cultures 09/22/18: 1 out of 4 MRSA (Vanco HUY 2). Blood cultures 09/24/18: NGTD Occult blood stool positive Assessment: 62-year-old female with PMH of CAD, hypertension, COPD, hypothyroidism, dementia, alcohol abuse, liver cirrhosis, hepatic encephalopathy, seizures disorder, brain aneurysm, brain injury, who was brought to the ER by EMS on 09/20/18 with complaints of dark red bloody stool per rectum and increased lethargy over the last few days. Found to have: 1) MRSA bacteremia. 1 out of 4 blood culture bottles positive on 09/22/18. Repeat Blood culture on 09/24/18 NGTD. Unclear source. No central lines, no skin wounds, no hardware, ?endocarditis. Vancomycin HUY 2. TTE no vegetations. Unclear source. 2) Acute hepatic encephalopathy. Ammonia of 88 on admission. Improved on lactulose. 3) ETOH liver cirrhosis with portal hypertension and esophageal varices. No evidence of ascites on abdominal US done on admission. 4) Acute hypoxic respiratory failure, likely POA. CXR and CT chest no infiltrates. 5) Acute GIB. 6) H/o etoh abuse, dementia alcohol induced, brain aneurysm. 7) Thrombocytopenia: ? cirrhosis Plan: -continue daptomycin for now -place PICC for daptomycin 400 mg IV qday total 14 days until (Per case management, order needs to be changed to Cubicin for approval) -Case management order revised [facility] M: [id number] O:[phone] Subjective Date of service: 09/28/18 Principal diagnosis: rectal bleeding, cirrhosis Interval history: Patient seen and examined. Sitting up in the bed, asleep but easy to arouse. + NG tube. Generalized weakness. no fevers. Objective - Exam Narrative Exam: General appearance: Asleep, easy to arouse. Generalized weakness Eyes: anicteric sclerae, moist conjunctivae; no lid-lag; PERRLA HENT: Atraumatic; oropharynx clear with moist mucous membranes and no mucosal ulcerations/no oral thrush;+NGT Neck: Trachea midline; supple, no thyromegaly or lymphadenopathy Lungs: CTA, with normal respiratory effort and no intercostal retractions - O2 2L/NC CV: RRR, no murmurs Abdomen: Soft, non-tender; no masses or hepatosplenomegaly GI: +ngt. Extremities: No peripheral edema or extremity lymphadenopathy Skin: Normal temperature, turgor and texture; no rash, ulcers or subcutaneous nodules Psych: alert no agitated Neuro: Asleep, easy to arouse. Answers questions appropriately. Grossly non- focal Lines: No CVL / no PICC / no pineda. Has PIV and NGT. - Constitutional Vitals: Vital Signs Temp Pulse Resp BP Pulse Ox 98.6 F 77 16 99/56 82 L 09/28/18 04:42 09/28/18 04:42 09/28/18 08:00 09/28/18 04:42 09/28/18 04:42 Temperature -Last 24 Hours Temperature 98.6 F Temperature 97.7 F Temperature 97.7 F - Labs CBC & Chem 7: 09/28/18 07:27 09/26/18 06:56
[2018-09-28] MEDS: DUONEB *Not for PRN Use IH SCH ×2 (09:34→21:01)
[2018-09-28] MEDS: KEPPRA PO SCH (09:51)
[2018-09-28] MEDS: PROAMATINE PO SCH ×4 (09:51→18:12)
[2018-09-28] MEDS: CEPHULAC PO SCH ×3 (09:52→20:40)
[2018-09-28] MEDS: BABY ASPIRIN PO SCH (09:52)
[2018-09-28] MEDS: FOLVITE PO SCH (09:52)
[2018-09-28] MEDS: XIFAXAN PO SCH (09:52)
[2018-09-28] MEDS: THERAGRAN Tab PO SCH (09:52)
[2018-09-28] MEDS: PREVACID SOLUTAB FEEDTUBE SCH (09:52)
[2018-09-28] MEDS: VITAMIN B-1 PO SCH (09:53)
[2018-09-28] MEDS: LaMICtal PO SCH (09:53)
[2018-09-28] MEDS: ALDACTONE PO SCH (10:55)
[2018-09-28] MEDS: FLONASE NS SCH ×2 (10:55→12:48)
[2018-09-28] MEDS: LASIX PO SCH (10:56)
[2018-09-28] MEDS: INDERAL PO SCH (10:57)
[2018-09-28] MEDS: NACL 0.9% IV SCH (11:04)
[2018-09-28] MEDS: DAPTOMYCIN IV SCH (11:04)
[2018-09-28] MEDS: SODIUM CHLORIDE FLUSH SYRINGE 10 ML IV SCH (11:04)
--- NOTE | 2018-09-28 11:34 | Gastroenterology Progress Note ---
Assessment and Plan 1.H/o alcoholic cirrhosis with varices 2.hepatic encephalopathy 3.rectal bleeding (caregiver reports intermittent BRBPR following BMs x last few months) -afebrile -WBC WNL (7.1) -H/H WNL-stable -INR and LFTs stable -ammonia now trended down to WNL (56) -abdominal U/S showed advanced cirrhosis and gallstones but no mass or ascites -etiology-patient has a hx of alcoholic cirrhosis 2/2 former ETOH abuse with varices and HE -clinically, patient's mental status has now returned to baseline. No evidence of abd pain, N/V, or active signs of bleeding. -Passed CHILD DEVELOPMENT TEACHER eval yesterday with trial of soft diet today -no plan for scope at this time unless overt bleeding develops -continue PPI, diuretics, xifaxan, propranalol, and lactulose (titrate to goal of BMs x 3/day) -continue to trend labs and supportive care -once patient is tolerating PO, okay to be d/c per GI standpoint on current medications with f/u in clinic (scheduled for outpatient EGD/colonoscopy next month-10/[address] Barajas) Subjective Date of service: 09/28/18 Principal diagnosis: rectal bleeding, cirrhosis Interval history: No acute distress. Patient more alert today and oriented to person. No evidence of abd pain, N/V, or active signs of bleeding. Objective - Constitutional Vitals: Temp Pulse Resp BP Pulse Ox 98.6 F 77 16 99/56 82 L 09/28/18 04:42 09/28/18 04:42 09/28/18 08:00 09/28/18 04:42 09/28/18 04:42 General appearance: no acute distress - Respiratory Respiratory: bilateral: CTA (anterior) - Cardiovascular Rhythm: regular - Gastrointestinal General gastrointestinal: Present: soft, non-tender, non-distended, normal bowel sounds - Neurologic Neurological: oriented to person - Labs CBC & Chem 7: 09/28/18 07:27 09/26/18 06:56 Labs: Laboratory Results - last 24 hr 09/28/18 09/28/18 07:27 07:27 Hgb 10.5 Hct 30.7 Ammonia 56.0
--- NOTE | 2018-09-28 12:03 | Progress Note ---
Assessment and Plan /Acute hypoxic respiratory failure, likely POA - Possible ARDS from sepsis?? pulmonary edema due to sepsis and hepatic failure ?? - Hypoxic on RA O2 sat, CXR without any infiltrates - CTA chest showed no acute PE - required non rebreather O2 to maintain sat, now on 2-3L N/c - nebs scheduled and as needed, consulted pulmonary /Bacteremia, MRSA with possible sepsis (encephalopathy, respiratory failure, worsening hepatic function from baseline), likely POA - 1 out of 4 blood culture bottles positive on 09/22/18. Repeat Blood culture on 09/24/18 NGTD - placed on vancomycin then changed to daptomycin - contact isolation, ID consulted, no vegetation on TTE with preserved EF - place PICC for daptomycin 400 mg IV qday total 14 days until 10/07/2018. Order sent to field case manager for approval by ID. But insurance will not approve need to change to Cubincin - will defer to ID / Acute GIB (etiology unclear) - Continue to monitor H&H, which is stable so far -etiology-patient has a hx of alcoholic cirrhosis 2/2 former ETOH abuse with varices and HE -GI consulted, no planned for endoscopy if H&H remains stable - Already has outpatient follow-up - cont Protonix, IVF for hydration as needed /Acute on chronic encephalopathy, present on admission - Likely Hepatic encephalopathy (ammonia trended upto 138) - -abdominal U/S showed advanced cirrhosis and gallstones but no mass or ascites - Continue lactulose with NG tube as patient unable to take po due to AMS, monitor response - Mental status much improved now with lactulose /Hepatic cirrhosis with portal hypertension and esophageal varices - Due to alcohol abuse -GI following, continue to monitor clinically /Dysphagia - - started mechanical soft diet as passed swallow screen but still c/o difficulty swallowing - will order barium swallow study Other chronic issues: Hypertension H/o CAD H/o alcohol abuse H/o seizures disorder H/o brain aneurysm Hypothyroidism H/o dementia, alcohol induced - cont home meds, supportive care, hold plavix - No heparin for DVT prophylasix due to bleeding, placed on SCD Disposition: need SNF as [facility] won't accept her with contact isolation and since she is being treated for MRSA Brief History: Patient is a 62-year-old female with PMHx of CAD, hypertension, COPD, hypothyroidism, dementia, alcohol abuse, liver cirrhosis, h/o hepatic encephalopathy, seizures disorder, and brain aneurysm, brain injury, who was brought to the ER by EMS for complaints of bloody dark red stool in the morning. In the ER, her ammonia level was 88, pt is admitted for further evaluation and treatment. She was refusing PO and mental status and respiratory status continue to decline. Lactulose started with NG tube, blood cx grew MRSA. ID consulted for abx recommendation. CTA chest 09/24/18: * No pulmonary embolus. No aortic aneurysm. No dissection. * Suspects cirrhotic liver. * Varices and splenomegaly suggest portal hypertension. Prominent soft tissue density lesion near the left infrahilar region from the GE junction to th e left pulmonary vein may represent varices with collateralized return. This is relatively similar to prior. Differential diagnosis would include mass. * Suspect pulmonary vascular congestion with mild edema. Hospitalist Physical exam: GENERAL: well-developed elderly WF lying on bed appeared to be in no discomfort. alert and awake HEENT: Normocephalic. Atraumatic. No conjunctival congestion or icterus. Patient has moist mucous membranes. NECK: Supple. Trachea midline. CHEST/LUNGS: on N/c, breathing nonlabored. No wheezes crackles or rhonchi. HEART/CARDIOVASCULAR: Regular in rate and rhythm. S1 and S2 positive. ABDOMEN: Abdomen is soft, nontender. Patient has normal bowel sounds. SKIN: There is no rash. Warm and dry. NEURO: Follows command. oriented to person and place MUSCULOSKELETAL: No joint effusion or tenderness. EXTRIMITY: No edema, no cyanosis or clubbing. PSYCH: Cooperative Subjective Date of service: 09/28/18 Principal diagnosis: rectal bleeding, cirrhosis Interval history: Patient seen and examined. Medical records and medication list reviewed. Patient more alert today and on N/C Discussed plan of care at bedside with RN and patient's landcare officer. Objective - Constitutional Vitals: Vital Signs - 12hr 09/28/18 09/28/18 09/28/18 04:00 04:42 08:00 Temperature 98.6 F Pulse Rate 77 Pulse Rate [ 67 From Monitor] Respiratory 18 16 16 Rate Blood Pressure 99/56 O2 Sat by Pulse 96 82 L Oximetry - Labs CBC & Chem 7: 09/29/18 08:48 09/26/18 06:56
--- NOTE | 2018-09-28 16:33 | XRay Report ---
PROCEDURE: XR CHEST 1V AP TECHNIQUE: Chest radiograph, AP portable semierect upright view. HISTORY: for picc placement COMPARISONS: Chest x-ray September 23, 2018. FINDINGS: Cardiac silhouette is within normal limits. There is no effusion. There is no pneumothorax. There is no consolidation. There are no suspicious osseous lesions. Enteric tube is in the stomach. Right PICC line tip is near the cavoatrial junction. IMPRESSION: * No acute cardiopulmonary findings. This document is electronically signed by Henrry Roman MD., Sep 28 2018 04:32:03 PM ET
[2018-09-29] MEDS: KEPPRA PO SCH ×3 (01:05→22:56)
[2018-09-29] MEDS: XIFAXAN PO SCH ×3 (01:05→22:56)
[2018-09-29] MEDS: PREVACID SOLUTAB FEEDTUBE SCH ×3 (01:06→22:56)
[2018-09-29] MEDS: LaMICtal PO SCH ×3 (01:06→22:56)
[2018-09-29] MEDS: SODIUM CHLORIDE FLUSH SYRINGE 10 ML IV SCH ×3 (01:06→22:56)
[2018-09-29] MEDS: SYNTHROID PO SCH (06:33)
[2018-09-29] MEDS: PROAMATINE PO SCH ×3 (08:00→18:45)
--- NOTE | 2018-09-29 08:42 | Progress Note ---
Assessment and Plan Cultures: Blood cultures 09/22/18: 1 out of 4 MRSA (Vanco HUY 2). Blood cultures 09/24/18: NGTD Occult blood stool positive Assessment: 62-year-old female with PMH of CAD, hypertension, COPD, hypothyroidism, dementia, alcohol abuse, liver cirrhosis, hepatic encephalopathy, seizures disorder, brain aneurysm, brain injury, who was brought to the ER by EMS on 09/20/18 with complaints of dark red bloody stool per rectum and increased lethargy over the last few days. Found to have: 1) MRSA bacteremia. 1 out of 4 blood culture bottles positive on 09/22/18. Repeat Blood culture on 09/24/18 NGTD. Unclear source. No central lines, no skin wounds, no hardware, ?endocarditis. Vancomycin HUY 2. TTE no vegetations. Unclear source. 2) Acute hepatic encephalopathy. Ammonia of 88 on admission. Improved on lactulose. 3) ETOH liver cirrhosis with portal hypertension and esophageal varices. No evidence of ascites on abdominal US done on admission. 4) Acute hypoxic respiratory failure, likely POA. CXR and CT chest no infiltrates. On venti mask 5) Acute GIB. 6) H/o etoh abuse, dementia alcohol induced, brain aneurysm. 7) Thrombocytopenia: ? cirrhosis 8) Fever: low grade fevers continuing. unclear source. Will consider broadening scope of antibiotics if fever spikes continue Plan: -continue daptomycin -Anticipate discharge on Cubicin (daptomycin) 400 mg IV qday total 14 days until -order placed with case management -monitor fevers -Repeat CXR for tomorrow [facility] M: [id number] O:[phone] Subjective Date of service: 09/29/18 Principal diagnosis: rectal bleeding, cirrhosis Interval history: Patient seen and examined. Somnolent, difficult to arouse. +low grade fever. On venti mask. Objective - Exam Narrative Exam: General appearance: Somnolent. Difficult to arouse. Eyes: anicteric sclerae, moist conjunctivae; no lid-lag; PERRLA HENT: Atraumatic; oropharynx clear with moist mucous membranes and no mucosal ulcerations/no oral thrush;+NGT Neck: Trachea midline; supple, no thyromegaly or lymphadenopathy Lungs: CTA, with normal respiratory effort and no intercostal retractions- On venti mask CV: RRR, no murmurs Abdomen: Soft, non-tender; no masses or hepatosplenomegaly GI: +ngt. Extremities: No peripheral edema or extremity lymphadenopathy Skin: Normal temperature, turgor and texture; no rash, ulcers or subcutaneous nodules Psych: alert no agitated Neuro: Somnolent. Lines: Right PICC and NGT. - Constitutional Vitals: Vital Signs Temp Pulse Resp BP Pulse Ox 99.6 F 83 24 107/63 94 09/29/18 05:19 09/29/18 05:19 09/29/18 05:19 09/29/18 05:19 09/29/18 05:19 Temperature -Last 24 Hours Temperature 99.6 F Temperature 100.3 F Temperature 97.7 F - Labs CBC & Chem 7: 09/29/18 08:48 09/26/18 06:56
[2018-09-29 09:14] LABS: Hemoglobin 10.4 gm/dl (10.1-14.3)
[2018-09-29 09:26] LABS: Hemoglobin 10.4 gm/dl (10.1-14.3); Mean Corpuscular HGB Conc 34 % (30-34); Mean Corpuscular Volume 88 fl (79-97); Platelet Count 128 K/mm3 (140-440)
[2018-09-29 09:28] LABS: Red Cell Distribution Width 20.3 % (13.2-15.2)
[2018-09-29 09:43] LABS: Albumin 2.9 g/dL (3.9-5); Bilirubin,Direct 0.4 mg/dL (0-0.2)
[2018-09-29] MEDS: CEPHULAC PO SCH ×3 (10:00→20:41)
[2018-09-29] MEDS: DUONEB *Not for PRN Use IH SCH ×2 (10:10→20:24)
[2018-09-29 11:03] LABS: Basophils % (Manual) 0 % (0.0-1.8); Total Cells Counted 100
[2018-09-29 11:04] LABS: Anisocytosis 1+; Ovalocytes Few; Platelet Estimate Consistent w Auto; Poikilocytosis 1+
[2018-09-29] MEDS: LASIX PO SCH (12:35)
[2018-09-29] MEDS: THERAGRAN Tab PO SCH (12:35)
[2018-09-29] MEDS: VITAMIN B-1 PO SCH (12:35)
[2018-09-29] MEDS: BABY ASPIRIN PO SCH (12:35)
[2018-09-29] MEDS: ALDACTONE PO SCH (12:36)
[2018-09-29] MEDS: INDERAL PO SCH (12:36)
[2018-09-29] MEDS: FOLVITE PO SCH (12:37)
[2018-09-29] MEDS: NACL 0.9% IV SCH (13:12)
[2018-09-29] MEDS: DAPTOMYCIN IV SCH (13:12)
[2018-09-29] MEDS: FLONASE NS SCH (13:38)
--- NOTE | 2018-09-29 14:39 | Progress Note ---
Assessment and Plan /Acute hypoxic respiratory failure, likely POA - Possible ARDS from sepsis?? pulmonary edema due to sepsis and hepatic failure ?? - Hypoxic on RA O2 sat, CXR without any infiltrates - CTA chest showed no acute PE, preserved EF on 2d echo - required non rebreather O2 to maintain sat, now on 2-3L N/c - nebs scheduled and as needed, consulted pulmonary /Bacteremia, MRSA with possible sepsis (encephalopathy, respiratory failure, worsening hepatic function from baseline), likely POA - 1 out of 4 blood culture bottles positive on 09/22/18. Repeat Blood culture on 09/24/18 NGTD - placed on vancomycin then changed to daptomycin - contact isolation, ID consulted, no vegetation on TTE with preserved EF - -Anticipate discharge on Cubicin (daptomycin) 400 mg IV qday total 14 days until , picc line placed / Acute GIB (etiology unclear) - Continue to monitor H&H, which is stable so far -etiology-patient has a hx of alcoholic cirrhosis 2/2 former ETOH abuse with varices and HE -GI consulted, no planned for endoscopy if H&H remains stable - Already has outpatient follow-up for EGD/colonoscopy - cont Protonix, IVF for hydration as needed /Acute on chronic encephalopathy, present on admission - Likely Hepatic encephalopathy (ammonia trended upto 138) - -abdominal U/S showed advanced cirrhosis and gallstones but no mass or ascites - Continue lactulose, Mental status much improved now with lactulose /Hepatic cirrhosis with portal hypertension and esophageal varices - Due to alcohol abuse -GI following, continue to monitor clinically /Dysphagia - - started mechanical soft diet as passed swallow screen but still c/o dif ficulty swallowing - will order barium swallow study Other chronic issues: Hypertension H/o CAD H/o alcohol abuse H/o seizures disorder H/o brain aneurysm Hypothyroidism H/o dementia, alcohol induced - cont home meds, supportive care, hold plavix - No heparin for DVT prophylasix due to bleeding, placed on SCD Disposition: need SNF as [facility] won't accept her with contact isolation and since she is being treated for MRSA Brief History: Patient is a 62-year-old female with PMHx of CAD, hypertension, COPD, hypothyroidism, dementia, alcohol abuse, liver cirrhosis, h/o hepatic encephalopathy, seizures disorder, and brain aneurysm, brain injury, who was brought to the ER by EMS for complaints of bloody dark red stool in the morning. In the ER, her ammonia level was 88, pt is admitted for further evaluation and treatment. She was refusing PO and mental status and respiratory status continue to decline. Lactulose started with NG tube, blood cx grew MRSA. ID consulted for abx recommendation. CTA chest 09/24/18: * No pulmonary embolus. No aortic aneurysm. No dissection. * Suspects cirrhotic liver. * Varices and splenomegaly suggest portal hypertension. Prominent soft tissue density lesion near the left infrahilar region from the GE junction to the left pulmonary vein may represent varices with collateralized return. This is relatively similar to prior. Differential diagnosis would include mass. * Suspect pulmonary vascular congestion with mild edema. Hospitalist Physical exam: GENERAL: well-developed elderly WF lying on bed appeared to be in no discomfort. alert and awake HEENT: Normocephalic. Atraumatic. No conjunctival congestion or icterus. Patient has moist mucous membranes. NECK: Supple. Trachea midline. CHEST/LUNGS: on N/c, breathing nonlabored. No wheezes crackles or rhonchi. HEART/CARDIOVASCULAR: Regular in rate and rhythm. S1 and S2 positive. ABDOMEN: Abdomen is soft, nontender. Patient has normal bowel sounds. SKIN: There is no rash. Warm and dry. NEURO: Follows command. oriented to person and place MUSCULOSKELETAL: No joint effusion or tenderness. EXTRIMITY: No edema, no cyanosis or clubbing. PSYCH: Cooperative Subjective Date of service: 09/29/18 Principal diagnosis: rectal bleeding, cirrhosis Interval history: Patient seen and examined. Medical records and medication list reviewed. Patient more alert today and on N/C Discussed plan of care at bedside with RN Still requiring restraint Objective - Constitutional Vitals: Vital Signs - 12hr 09/29/18 09/29/18 09/29/18 05:19 11:48 13:28 Temperature 99.6 F 97.9 F Pulse Rate 83 Respiratory 24 16 Rate Blood Pressure 107/63 115/68 O2 Sat by Pulse 94 96 Oximetry - Labs CBC & Chem 7: 09/29/18 08:48 09/26/18 06:56 Labs: Abnormal lab results 09/29/18 09/29/18 09/29/18 Range/Units 08:48 08:48 08:48 RBC 3.50 L (3.65-5.03) M/mm3 RDW 20.3 H (13.2-15.2) % Plt Count 128 L (140-440) K/mm3 Seg Neuts % (Manual) 80.0 H (40.0-70.0) % Lymphocytes % (Manual) 7.0 L (13.4-35.0) % Monocytes % (Manual) 11.0 H (0.0-7.3) % Nucleated RBC % 1.0 H (0.0-0.9) % Lymphocytes # (Manual) 0.6 L (1.2-5.4) K/mm3 Monocytes # (Manual) 1.0 H (0.0-0.8) K/mm3 Direct Bilirubin 0.4 H (0-0.2) mg/dL Alkaline Phosphatase 169 H (35-129) units/L Ammonia 72.0 H (25-60) umol/L Total Protein 5.6 L (6.3-8.2) g/dL Albumin 2.9 L (3.9-5) g/dL
--- NOTE | 2018-09-29 17:30 | Progress Note ---
Assessment and Plan Patient sleeping and on venturi mask, FIO2 35% and O2 saturation 96%. No acute respiratory distress. - Patient Problems (1) Acute respiratory failure with hypoxia Current Visit: No Status: Acute Plan to address problem: On Venturi mask, FIO2 35%. o2 saturation 96%. Albuterol/atrovent aerosol treatments q 6 hours. SCDs Continue Protonix. (2) Hepatic encephalopathy syndrome Current Visit: Yes Status: Acute Plan to address problem: Patient is on Lactulose. Mangement as per Primary care and GI. (3) Cirrhosis, alcoholic Current Visit: Yes Status: Chronic Plan to address problem: Management as per GI. (4) GI bleed Current Visit: No Status: Acute Plan to address problem: Management as per GI. Subjective Date of service: 09/29/18 Principal diagnosis: rectal bleeding, cirrhosis Interval history: Patient sleeping and on venturi mask, FIO2 35% and O2 saturation 96%. No acute respiratory distress. Objective Vital Signs - 12hr 09/29/18 09/29/18 11:48 13:28 Temperature 97.9 F Respiratory 16 Rate Blood Pressure 115/68 O2 Sat by Pulse 96 Oximetry Constitutional: no acute distress, alert Eyes: non-icteric ENT: oropharynx dry Neck: supple, no lymphadenopathy Ascultation: Bilateral: diminished breath sounds Cardiovascular: regular rate and rhythm Gastrointestinal: normoactive bowel sounds, soft, non-tender Integumentary: normal, rash Extremities: no cyanosis, no edema Neurologic: pupils equal and round Psychiatric: other (Patient awake and confused.) CBC and BMP: 09/29/18 08:48 09/26/18 06:56 ABG, PT/INR, D-dimer: ABG POC ABG pH 7.460 (7.35-7.45) H 09/24/18 17:01 POC ABG pCO2 31.2 (35-45) L 09/24/18 17:01 POC ABG pO2 73 (80-105) L 09/24/18 17:01 POC ABG HCO3 22.1 (22-26 mml/L) 09/24/18 17:01 POC ABG Total CO2 23 (23-27mmol/L) 09/24/18 17:01 POC ABG O2 Sat 95 09/24/18 17:01 PT/INR, D-dimer PT 17.1 Sec. (12.2-14.9) H 09/24/18 05:33 INR 1.31 (0.87-1.13) H 09/24/18 05:33 Abnormal lab findings: Abnormal Labs 09/20/18 09/20/18 09/20/18 17:46 17:46 17:54 RBC MCHC RDW 19.8 H Plt Count Lymph % (Auto) [place] % (Auto) Lymph # Seg Neutrophils % Seg Neuts % (Manual) Lymphocytes % (Manual) Monocytes % (Manual) Nucleated RBC % Lymphocytes # (Manual) Monocytes # (Manual) PT 17.5 H INR 1.35 H POC ABG pH POC ABG pCO2 POC ABG pO2 Sodium Potassium BUN Creatinine 0.6 L Glucose Calcium Direct Bilirubin AST Alkaline Phosphatase Ammonia Total Protein Albumin 3.7 L 09/20/18 09/22/18 09/23/18 17:55 12:16 07:01 RBC MCHC RDW Plt Count Lymph % (Auto) [place] % (Auto) Lymph # Seg Neutrophils % Seg Neuts % (Manual) Lymphocytes % (Manual) Monocytes % (Manual) Nucleated RBC % Lymphocytes # (Manual) Monocytes # (Manual) PT INR POC ABG pH POC ABG pCO2 POC ABG pO2 Sodium Potassium BUN Creatinine Glucose Calcium Direct Bilirubin AST Alkaline Phosphatase Ammonia 88.0 H 134.0 H 106.0 H Total Protein Albumin 09/23/18 09/23/18 09/24/18 09:57 09:57 05:33 RBC MCHC RDW 19.9 H Plt Count Lymph % (Auto) [place] % (Auto) Lymph # Seg Neutrophils % Seg Neuts % (Manual) Lymphocytes % (Manual) Monocytes % (Manual) Nucleated RBC % Lymphocytes # (Manual) Monocytes # (Manual) PT 17.1 H INR 1.31 H POC ABG pH POC ABG pCO2 POC ABG pO2 Sodium Potassium 3.5 L BUN Creatinine 0.5 L Glucose 157 H Calcium 8.0 L Direct Bilirubin AST Alkaline Phosphatase Ammonia Total Protein 6.0 L Albumin 3.2 L 09/24/18 09/24/18 09/24/18 05:33 05:33 17:01 RBC MCHC RDW Plt Count Lymph % (Auto) [place] % (Auto) Lymph # Seg Neutrophils % Seg Neuts % (Manual) Lymphocytes % (Manual) Monocytes % (Manual) Nucleated RBC % Lymphocytes # (Manual) Monocytes # (Manual) PT INR POC ABG pH 7.460 H POC ABG pCO2 31.2 L POC ABG pO2 73 L Sodium Potassium BUN 6 L Creatinine 0.5 L Glucose 161 H Calcium Direct Bilirubin AST Alkaline Phosphatase Ammonia 77.0 H Total Protein Albumin 09/26/18 09/26/18 09/26/18 06:56 06:56 06:56 RBC MCHC RDW 19.6 H Plt Count 137 L Lymph % (Auto) [place] % (Auto) Lymph # Seg Neutrophils % Seg Neuts % (Manual) Lymphocytes % (Manual) Monocytes % (Manual) Nucleated RBC % Lymphocytes # (Manual) Monocytes # (Manual) PT INR POC ABG pH POC ABG pCO2 POC ABG pO2 Sodium 136 L Potassium BUN Creatinine 0.4 L Glucose 130 H Calcium 8.3 L Direct Bilirubin AST 41 H Alkaline Phosphatase 133 H Ammonia 92.0 H Total Protein 5.9 L Albumin 3.1 L 09/27/18 09/27/18 09/29/18 05:43 05:43 08:48 RBC 3.53 L MCHC 35 H RDW 19.3 H Plt Count 122 L Lymph % (Auto) 6.9 L [place] % (Auto) 9.5 H Lymph # 0.5 L Seg Neutrophils % 82.4 H Seg Neuts % (Manual) Lymphocytes % (Manual) Monocytes % (Manual) Nucleated RBC % Lymphocytes # (Manual) Monocytes # (Manual) PT INR POC ABG pH POC ABG pCO2 POC ABG pO2 Sodium Potassium BUN Creatinine Glucose Calcium Direct Bilirubin 0.4 H AST Alkaline Phosphatase 169 H Ammonia 65.0 H Total Protein 5.6 L Albumin 2.9 L 09/29/18 09/29/18 08:48 08:48 RBC 3.50 L MCHC RDW 20.3 H Plt Count 128 L Lymph % (Auto) [place] % (Auto) Lymph # Seg Neutrophils % Seg Neuts % (Manual) 80.0 H Lymphocytes % (Manual) 7.0 L Monocytes % (Manual) 11.0 H Nucleated RBC % 1.0 H Lymphocytes # (Manual) 0.6 L Monocytes # (Manual) 1.0 H PT INR POC ABG pH POC ABG pCO2 POC ABG pO2 Sodium Potassium BUN Creatinine Glucose Calcium Direct Bilirubin AST Alkaline Phosphatase Ammonia 72.0 H Total Protein Albumin Chest x-ray: report reviewed (No acute cardiopulmonary findings.), image reviewed
[2018-09-30] MEDS: SYNTHROID PO SCH (06:26)
[2018-09-30] MEDS: DUONEB *Not for PRN Use IH SCH ×2 (07:41→19:17)
--- NOTE | 2018-09-30 08:41 | Progress Note ---
Assessment and Plan 62-year-old female with PMH of CAD, hypertension, COPD, hypothyroidism, dementia, alcohol abuse, liver cirrhosis, hepatic encephalopathy, seizures disorder, brain aneurysm, brain injury, who was brought to the ER by EMS on 09/20/18 with complaints of dark red bloody stool per rectum and increased lethargy over the last few days. Acute hypoxic respiratory failure, likely POA. CXR and CT chest no infiltrates on admission, now has LLL infiltrate, probable aspiration MRSA bacteremia. 1 out of 4 blood culture bottles positive on 09/22/18. Repeat Blood culture on 09/24/18 NGTD. Acute hepatic encephalopathy. ETOH liver cirrhosis with portal hypertension and esophageal varices. Acute GIB. H/O Alcohol abuse, dementia alcohol induced, brain aneurysm. Thrombocytopenia Pyrexia, isolated -Continue with supplemental oxygen to keep O2 sats >90% -Antibiotics per ID -Modified diet per SAFEKEEPING CLERK with aspiration precautions -VTE prophylaxis-SCDs -PT/OT to increase mobility -Continue medical management of hepatic encephalopathy -NGT feeding to continue for adequate nutritional support -Supportive transfusions as indicated -Continue to monitor H and H and hemodynamics -Incentive spirometry, left lower lobe infiltrate is possible atelectasis -Follow up CXR in the next 4-5 days -Bronchodilators per protocol Discussed with RN at the bedside Update the patient re care plan Subjective Date of service: 09/30/18 Principal diagnosis: rectal bleeding, cirrhosis Objective - Exam Narrative Exam: General appearance: Chronically ill looking, alert, awake Eyes: anicteric sclerae, moist conjunctivae; no lid-lag; PERRLA HENT: Atraumatic; oropharynx clear with moist mucous membranes and no mucosal ulcerations/no oral thrush;+NGT Neck: Trachea midline; supple, no thyromegaly or lymphadenopathy Lungs: CTA, with normal respiratory effort and no intercostal retractions CV: RRR, S1, S2, no murmurs Abdomen: Soft, non-tender; no masses or hepatosplenomegaly Extremities: No peripheral edema or extremity lymphadenopathy UExt PICC line, bilateral upper digital clubbing Skin: Normal temperature, turgor and texture; no rash, ulcers or subcutaneous nodules Psych: alert no agitated Neuro: Awake, alert, obeys commands, non-focal, slow speech Vital Signs - 12hr 05/22/19 05/22/19 05/23/19 20:46 22:31 02:14 Temperature 98.9 F Pulse Rate 84 Pulse Rate [ 79 Anterior Bilateral Throughout] Pulse Rate [ Anterior Left Throughout] Respiratory 18 Rate Respiratory 20 Rate [Anterior Bilateral Throughout] Respiratory Rate [Anterior Left Throughout ] Blood Pressure 102/61 O2 Sat by Pulse 92 93 Oximetry 09/30/18 09/30/18 09/30/18 04:48 07:41 07:42 Temperature 98.3 F Pulse Rate 83 Pulse Rate [ Anterior Bilateral Throughout] Pulse Rate [ 79 80 Anterior Left Throughout] Respiratory 18 Rate Respiratory Rate [Anterior Bilateral Throughout] Respiratory 19 19 Rate [Anterior Left Throughout ] Blood Pressure 101/59 O2 Sat by Pulse 91 Oximetry 09/30/18 07:43 Temperature Pulse Rate Pulse Rate [ Anterior Bilateral Throughout] Pulse Rate [ Anterior Left Throughout] Respiratory Rate Respiratory Rate [Anterior Bilateral Throughout] Respiratory Rate [Anterior Left Throughout ] Blood Pressure O2 Sat by Pulse 96 Oximetry Constitutional: no acute distress, alert Eyes: non-icteric ENT: oropharynx dry Neck: supple, no lymphadenopathy Effort: normal Ascultation: Bilateral: diminished breath sounds Cardiovascular: regular rate and rhythm Gastrointestinal: normoactive bowel sounds, soft, non-tender Integumentary: normal, rash Extremities: no cyanosis, no edema Neurologic: non-focal exam, pupils equal and round, motor strength normal and Psychiatric: other (Patient awake and confused.) CBC and BMP: 09/29/18 08:48 10/01/18 07:26 ABG, PT/INR, D-dimer: ABG POC ABG pH 7.460 (7.35-7.45) H 09/24/18 17:01 POC ABG pCO2 31.2 (35-45) L 09/24/18 17:01 POC ABG pO2 73 (80-105) L 09/24/18 17:01 POC ABG HCO3 22.1 (22-26 mml/L) 09/24/18 17:01 POC ABG Total CO2 23 (23-27mmol/L) 09/24/18 17:01 POC ABG O2 Sat 95 09/24/18 17:01 PT/INR, D-dimer PT 17.1 Sec. (12.2-14.9) H 09/24/18 05:33 INR 1.31 (0.87-1.13) H 09/24/18 05:33 Abnormal lab findings: Abnormal Labs 09/20/18 09/20/18 09/20/18 17:46 17:46 17:54 RBC MCHC RDW 19.8 H Plt Count Lymph % (Auto) [place] % (Auto) Lymph # Seg Neutrophils % Seg Neuts % (Manual) Lymphocytes % (Manual) Monocytes % (Manual) Nucleated RBC % Lymphocytes # (Manual) Monocytes # (Manual) PT 17.5 H INR 1.35 H POC ABG pH POC ABG pCO2 POC ABG pO2 Sodium Potassium BUN Creatinine 0.6 L Glucose Calcium Direct Bilirubin AST Alkaline Phosphatase Ammonia Total Protein Albumin 3.7 L 09/20/18 09/22/18 09/23/18 17:55 12:16 07:01 RBC MCHC RDW Plt Count Lymph % (Auto) [place] % (Auto) Lymph # Seg Neutrophils % Seg Neuts % (Manual) Lymphocytes % (Manual) Monocytes % (Manual) Nucleated RBC % Lymphocytes # (Manual) Monocytes # (Manual) PT INR POC ABG pH POC ABG pCO2 POC ABG pO2 Sodium Potassium BUN Creatinine Glucose Calcium Direct Bilirubin AST Alkaline Phosphatase Ammonia 88.0 H 134.0 H 106.0 H Total Protein Albumin 09/23/18 09/23/18 09/24/18 09:57 09:57 05:33 RBC MCHC RDW 19.9 H Plt Count Lymph % (Auto) [place] % (Auto) Lymph # Seg Neutrophils % Seg Neuts % (Manual) Lymphocytes % (Manual) Monocytes % (Manual) Nucleated RBC % Lymphocytes # (Manual) Monocytes # (Manual) PT 17.1 H INR 1.31 H POC ABG pH POC ABG pCO2 POC ABG pO2 Sodium Potassium 3.5 L BUN Creatinine 0.5 L Glucose 157 H Calcium 8.0 L Direct Bilirubin AST Alkaline Phosphatase Ammonia Total Protein 6.0 L Albumin 3.2 L 09/24/18 09/24/18 09/24/18 05:33 05:33 17:01 RBC MCHC RDW Plt Count Lymph % (Auto) [place] % (Auto) Lymph # Seg Neutrophils % Seg Neuts % (Manual) Lymphocytes % (Manual) Monocytes % (Manual) Nucleated RBC % Lymphocytes # (Manual) Monocytes # (Manual) PT INR POC ABG pH 7.460 H POC ABG pCO2 31.2 L POC ABG pO2 73 L Sodium Potassium BUN 6 L Creatinine 0.5 L Glucose 161 H Calcium Direct Bilirubin AST Alkaline Phosphatase Ammonia 77.0 H Total Protein Albumin 09/26/18 09/26/18 09/26/18 06:56 06:56 06:56 RBC MCHC RDW 19.6 H Plt Count 137 L Lymph % (Auto) [place] % (Auto) Lymph # Seg Neutrophils % Seg Neuts % (Manual) Lymphocytes % (Manual) Monocytes % (Manual) Nucleated RBC % Lymphocytes # (Manual) Monocytes # (Manual) PT INR POC ABG pH POC ABG pCO2 POC ABG pO2 Sodium 136 L Potassium BUN Creatinine 0.4 L Glucose 130 H Calcium 8.3 L Direct Bilirubin AST 41 H Alkaline Phosphatase 133 H Ammonia 92.0 H Total Protein 5.9 L Albumin 3.1 L 09/27/18 09/27/18 09/29/18 05:43 05:43 08:48 RBC 3.53 L MCHC 35 H RDW 19.3 H Plt Count 122 L Lymph % (Auto) 6.9 L [place] % (Auto) 9.5 H Lymph # 0.5 L Seg Neutrophils % 82.4 H Seg Neuts % (Manual) Lymphocytes % (Manual) Monocytes % (Manual) Nucleated RBC % Lymphocytes # (Manual) Monocytes # (Manual) PT INR POC ABG pH POC ABG pCO2 POC ABG pO2 Sodium Potassium BUN Creatinine Glucose Calcium Direct Bilirubin 0.4 H AST Alkaline Phosphatase 169 H Ammonia 65.0 H Total Protein 5.6 L Albumin 2.9 L 09/29/18 09/29/18 08:48 08:48 RBC 3.50 L MCHC RDW 20.3 H Plt Count 128 L Lymph % (Auto) [place] % (Auto) Lymph # Seg Neutrophils % Seg Neuts % (Manual) 80.0 H Lymphocytes % (Manual) 7.0 L Monocytes % (Manual) 11.0 H Nucleated RBC % 1.0 H Lymphocytes # (Manual) 0.6 L Monocytes # (Manual) 1.0 H PT INR POC ABG pH POC ABG pCO2 POC ABG pO2 Sodium Potassium BUN Creatinine Glucose Calcium Direct Bilirubin AST Alkaline Phosphatase Ammonia 72.0 H Total Protein Albumin
--- NOTE | 2018-09-30 08:47 | XRay Report ---
AP CHEST: HISTORY: Fevers Hazy opacity is identified in the left lower lobe since 09/28/18. Developing left lower lobe infiltrate could be considered. The left upper lobe and right lung are clear. Normal heart size. The endotracheal tube has been removed. The feeding tube and right venous catheter are unchanged. IMPRESSION: New left lower lobe opacity which could represent an early infiltrate.
[2018-09-30] MEDS: LASIX PO SCH (09:24)
[2018-09-30] MEDS: ALDACTONE PO SCH (09:24)
[2018-09-30] MEDS: BABY ASPIRIN PO SCH (09:24)
[2018-09-30] MEDS: FOLVITE PO SCH (09:25)
[2018-09-30] MEDS: THERAGRAN Tab PO SCH (09:25)
[2018-09-30] MEDS: PREVACID SOLUTAB FEEDTUBE SCH ×2 (09:25→22:35)
[2018-09-30] MEDS: XIFAXAN PO SCH ×2 (09:25→22:35)
[2018-09-30] MEDS: PROAMATINE PO SCH ×3 (09:26→18:39)
[2018-09-30] MEDS: CEPHULAC PO SCH ×3 (09:26→22:35)
[2018-09-30] MEDS: LaMICtal PO SCH ×2 (09:26→22:35)
[2018-09-30] MEDS: KEPPRA PO SCH ×2 (09:26→22:35)
[2018-09-30] MEDS: INDERAL PO SCH (09:26)
[2018-09-30] MEDS: SODIUM CHLORIDE FLUSH SYRINGE 10 ML IV SCH ×2 (09:27→22:36)
[2018-09-30] MEDS: VITAMIN B-1 PO SCH (09:28)
[2018-09-30] MEDS: FLONASE NS SCH (11:45)
[2018-09-30] MEDS: NACL 0.9% IV SCH (12:10)
[2018-09-30] MEDS: DAPTOMYCIN IV SCH (12:10)
--- NOTE | 2018-09-30 14:43 | Progress Note ---
Assessment and Plan Assessment and plan: Patient is a 62-year-old female with PMHx of CAD, hypertension, COPD, hypothyroidism, dementia, alcohol abuse, liver cirrhosis, h/o hepatic encephalopathy, seizures disorder, and brain aneurysm, brain injury, who was brought to the ER by EMS for complaints of bloody dark red stool in the morning. In the ER, her ammonia level was 88, pt is admitted for further evaluation and treatment. She was refusing PO and mental status and respiratory status continue to decline. Lactulose started with NG tube, blood cx grew MRSA. ID consulted for abx recommendation. Acute hypoxic respiratory failure, likely POA - Possible ARDS from sepsis?? pulmonary edema due to sepsis and hepatic failure ?? - Hypoxic on RA O2 sat, CXR without any infiltrates - CTA chest showed no acute PE, preserved EF on 2d echo - require facemask O2 to maintain sat - nebs scheduled and as needed, consulted pulmonary Bacteremia, MRSA with possible sepsis (encephalopathy, respiratory failure, worsening hepatic function from baseline), likely POA - 1 out of 4 blood culture bottles positive on 09/22/18. Repeat Blood culture on 09/24/18 NGTD - placed on vancomycin then changed to daptomycin - contact isolation, ID consulted, no vegetation on TTE with preserved EF - -Anticipate discharge on Cubicin (daptomycin) 400 mg IV qday total 14 days until , picc line placed Acute GIB (etiology unclear) - Continue to monitor H&H, which is stable so far -etiology-patient has a hx of alcoholic cirrhosis 2/2 former ETOH abuse with varices and HE -GI consulted, no planned for endoscopy if H&H remains stable - Already has outpatient follow-up for EGD/colonoscopy - cont Protonix, IVF for hydration as needed Acute on chronic encephalopathy, present on admission - Likely Hepatic encephalopathy (ammonia trended upto 138) - -abdominal U/S showed advanced cirrhosis and gallstones but no mass or ascites - Continue lactulose, Mental status much improved now with lactulose Hepatic cirrhosis with portal hypertension and esophageal varices - Due to alcohol abuse -GI following, continue to monitor clinically Dysphagia - On mechanical soft diet - Dietary supplementation - DC NG tube Other chronic issues: Hypertension H/o CAD H/o alcohol abuse H/o seizures disorder H/o brain aneurysm Hypothyroidism H/o dementia, alcohol induced - cont home meds, supportive care, hold plavix - No heparin for DVT prophylasix due to bleeding, placed on SCD Disposition: SNF placement pending. Discussed with personal home care and said will not the patient now. History Interval history: Patient was seen and evaluated this morning, patient was alert and cooperative but is demented. Hospitalist Physical - Physical exam Narrative exam: Patient is on facemask, NG tube in place The patient appeared well nourished and normally developed. Vital signs as documented. Head exam is unremarkable. No scleral icterus . Neck is without jugular venous distension, thyromegaly, or carotid bruits. Lungs are clear to auscultation. Cardiac exam reveals regular rate and Rhythm. Abdominal exam reveals normal bowel sounds. Extremities are nonedematous and both femoral and pedal pulses are normal. OPERATIONS AND MAINTENANCE SUPERVISOR: Alert and oriented 3. No focal weakness. - Constitutional Vitals: Temp Pulse Resp BP Pulse Ox 98.4 F 75 20 103/57 90 09/30/18 12:05 09/30/18 12:05 09/30/18 12:05 09/30/18 12:05 09/30/18 12:05 General appearance: Present: no acute distress Results - Labs CBC & Chem 7: 09/29/18 08:48 10/01/18 07:26 Labs: Laboratory Last Values WBC 9.0 K/mm3 (4.5-11.0) 09/29/18 08:48 RBC 3.50 M/mm3 (3.65-5.03) L 09/29/18 08:48 Hgb 10.4 gm/dl (10.1-14.3) 09/29/18 08:48 Hgb 10.4 gm/dl (10.1-14.3) 09/29/18 08:48 Hct 31.0 % (30.3-42.9) 09/29/18 08:48 Hct 31.0 % (30.3-42.9) 09/29/18 08:48 MCV 88 fl (79-97) 09/29/18 08:48 MCH 30 pg (28-32) 09/29/18 08:48 MCHC 34 % (30-34) 09/29/18 08:48 RDW 20.3 % (13.2-15.2) H 09/29/18 08:48 Plt Count 128 K/mm3 (140-440) L 09/29/18 08:48 Lymph % (Auto) 6.9 % (13.4-35.0) L 09/27/18 05:43 [place] % (Auto) Transcribing Operators Supervisor 09/29/18 08:48 Eos % (Auto) 0.8 % (0.0-4.3) 09/27/18 05:43 Baso % (Auto) 0.4 % (0.0-1.8) 09/27/18 05:43 Lymph # 0.5 K/mm3 (1.2-5.4) L 09/27/18 05:43 [place] # 0.6 K/mm3 (0.0-0.8) 09/27/18 05:43 Eos # 0.1 K/mm3 (0.0-0.4) 09/27/18 05:43 Baso # 0.0 K/mm3 (0.0-0.1) 09/27/18 05:43 Add Manual Diff Complete 09/29/18 08:48 Total Counted 100 09/29/18 08:48 Seg Neutrophils % 82.4 % (40.0-70.0) H 09/27/18 05:43 Seg Neuts % (Manual) 80.0 % (40.0-70.0) H 09/29/18 08:48 0 % 09/29/18 08:48 7.0 % (13.4-35.0) L 09/29/18 08:48 Reactive Lymphs % (Man) 0 % 09/29/18 08:48 11.0 % (0.0-7.3) H 09/29/18 08:48 2.0 % (0.0-4.3) 09/29/18 08:48 0 % (0.0-1.8) 09/29/18 08:48 0 % 09/29/18 08:48 0 % 09/29/18 08:48 0 % 09/29/18 08:48 0 % 09/29/18 08:48 Nucleated RBC % 1.0 % (0.0-0.9) H 09/29/18 08:48 Seg Neutrophils # 5.6 K/mm3 (1.8-7.7) 09/27/18 05:43 Seg Neutrophils # Man 7.2 K/mm3 (1.8-7.7) 09/29/18 08:48 Band Neutrophils # 0.0 K/mm3 09/29/18 08:48 0.6 K/mm3 (1.2-5.4) L 09/29/18 08:48 Abs React Lymphs (Man) 0.0 K/mm3 09/29/18 08:48 1.0 K/mm3 (0.0-0.8) H 09/29/18 08:48 0.2 K/mm3 (0.0-0.4) 09/29/18 08:48 0.0 K/mm3 (0.0-0.1) 09/29/18 08:48 0.0 K/mm3 09/29/18 08:48 0.0 K/mm3 09/29/18 08:48 0.0 K/mm3 09/29/18 08:48 Blast Cells # 0.0 K/mm3 09/29/18 08:48 WBC Morphology Not Reportable 09/29/18 08:48 Hypersegmented Neuts Not Reportable 09/29/18 08:48 Hyposegmented Neuts Not Reportable 09/29/18 08:48 Hypogranular Neuts Not Reportable 09/29/18 08:48 Not Reportable 09/29/18 08:48 Not Reportable 09/29/18 08:48 Not Reportable 09/29/18 08:48 Not Reportable 09/29/18 08:48 Not Reportable 09/29/18 08:48 Not Reportable 09/29/18 08:48 Consistent w auto 09/29/18 08:48 Not Reportable 09/29/18 08:48 Plt Clumps, EDTA Not Reportable 09/29/18 08:48 Not Reportable 09/29/18 08:48 Not Reportable 09/29/18 08:48 Not Reportable 09/29/18 08:48 Plt Morphology Comment Not Reportable 09/29/18 08:48 RBC Morphology Not Reportable 09/29/18 08:48 Dimorphic RBCs Not Reportable 09/29/18 08:48 Not Reportable 09/29/18 08:48 Not Reportable 09/29/18 08:48 1+ 09/29/18 08:48 1+ 09/29/18 08:48 Not Reportable 09/29/18 08:48 Not Reportable 09/29/18 08:48 Not Reportable 09/29/18 08:48 Not Reportable 09/29/18 08:48 Not Reportable 09/29/18 08:48 Not Reportable 09/29/18 08:48 Not Reportable 09/29/18 08:48 Few 09/29/18 08:48 Not Reportable 09/29/18 08:48 Not Reportable 09/29/18 08:48 Not Reportable 09/29/18 08:48 Not Reportable 09/29/18 08:48 Not Reportable 09/29/18 08:48 Not Reportable 09/29/18 08:48 Few 09/29/18 08:48 Acanthocytes (Spur) Not Reportable 09/29/18 08:48 Rouleaux Not Reportable 09/29/18 08:48 Not Reportable 09/29/18 08:48 Not Reportable 09/29/18 08:48 Not Reportable 09/29/18 08:48 Not Reportable 09/29/18 08:48 Hem Pathologist Commnt No 09/29/18 08:48 PT 17.1 Sec. (12.2-14.9) H 09/24/18 05:33 INR 1.31 (0.87-1.13) H 09/24/18 05:33 APTT 30.5 Sec. (24.2-36.6) 09/20/18 17:54 POC ABG pH 7.460 (7.35-7.45) H 09/24/18 17:01 POC ABG pCO2 31.2 (35-45) L 09/24/18 17:01 POC ABG pO2 73 (80-105) L 09/24/18 17:01 POC ABG HCO3 22.1 (22-26 mml/L) 09/24/18 17:01 POC ABG Total CO2 23 (23-27mmol/L) 09/24/18 17:01 POC ABG O2 Sat 95 09/24/18 17:01 POC ABG Base Excess -2 ((-2) - (+3)mmol/L) 09/24/18 17:01 50 % 09/24/18 17:01 Sodium 136 mmol/L (137-145) L 09/26/18 06:56 Potassium 3.6 mmol/L (3.6-5.0) 09/26/18 06:56 Chloride 99.5 mmol/L (98-107) 09/26/18 06:56 Carbon Dioxide 22 mmol/L (22-30) 09/26/18 06:56 18 mmol/L 09/26/18 06:56 BUN 7 mg/dL (7-17) 09/26/18 06:56 0.4 mg/dL (0.7-1.2) L 09/26/18 06:56 Estimated GFR > 60 ml/min 09/26/18 06:56 18 % 09/26/18 06:56 Glucose 130 mg/dL (65-100) H 09/26/18 06:56 Calcium 8.3 mg/dL (8.4-10.2) L 09/26/18 06:56 0.90 mg/dL (0.1-1.2) 09/29/18 08:48 0.4 mg/dL (0-0.2) H 09/29/18 08:48 0.5 mg/dL 09/29/18 08:48 AST 39 units/L (5-40) 09/29/18 08:48 ALT 27 units/L (7-56) 09/29/18 08:48 169 units/L (35-129) H 09/29/18 08:48 72.0 umol/L (25-60) H 09/29/18 08:48 87 units/L (30-135) 09/26/18 06:56 5.6 g/dL (6.3-8.2) L 09/29/18 08:48 2.9 g/dL (3.9-5) L 09/29/18 08:48 1.1 % 09/29/18 08:48 Yellow (Yellow) 09/22/18 17:20 Clear (Clear) 09/22/18 17:20 6.0 (5.0-7.0) 09/22/18 17:20 Ur Specific [place] 1.011 (1.003-1.030) 09/22/18 17:20 <15 mg/dl mg/dL (Negative) 09/22/18 17:20 Neg mg/dL (Negative) 09/22/18 17:20 Neg mg/dL (Negative) 09/22/18 17:20 Mod (Negative) 09/22/18 17:20 Pos (Negative) 09/22/18 17:20 Neg (Negative) 09/22/18 17:20 < 2.0 mg/dL (<2.0) 09/22/18 17:20 Ur Leukocyte Esterase Tr (Negative) 09/22/18 17:20 1.0 /HPF (0.0-6.0) 09/22/18 17:20 < 1.0 /HPF (0.0-6.0) 09/22/18 17:20 Few /HPF 09/22/18 17:20 Blood Type B POSITIVE 09/20/18 17:46 Antibody Screen Negative 09/20/18 17:46 Active Medications - Current Medications Current Medications: Generic Name Dose Route Start Last Admin Trade Name Freq PRN Reason Stop Dose Admin Acetaminophen 650 mg 09/20/18 19:37 09/26/18 21:05 Tylenol PO 650 mg Q4H PRN Administration Pain MILD(1-3)/Fever >100.5/PÉREZ Albuterol 2.5 mg 09/21/18 07:40 Proventil IH Q4HRT PRN Shortness Of Breath Albuterol/Ipratropium 1 ampul 09/21/18 20:00 09/30/18 07:41 Duoneb *Not For Prn Use* IH 1 ampul BIDRT HUONG Administration Lipase/Protease/Amylase 1 each 09/22/18 11:24 Pancreaze 10,500 Unit FEEDTUBE PRN PRN For Clogged Feeding Tube Aspirin 81 mg 09/21/18 10:00 09/30/18 09:24 Baby Aspirin PO 81 mg DAILY HUONG Administration Fluticasone Propionate 50 mcg 09/24/18 10:00 09/30/18 11:45 Flonase NS 50 mcg QDAY HUONG Administration Folic Acid 1 mg 09/21/18 10:00 09/30/18 09:25 Folvite PO 1 mg QDAY HUONG Administration Furosemide 20 mg 09/21/18 10:00 09/30/18 09:24 Lasix PO 20 mg QDAY HUONG Administration Daptomycin 366 mg/ Sodium 100 mls @ 200 mls/hr 09/26/18 11:00 09/30/18 12:10 Chloride IV 10/07/18 11:29 200 mls/hr Q24H HUONG Administration Protocol Lactulose 30 gm 09/21/18 08:00 09/30/18 14:27 Cephulac PO 30 gm TID HUONG Administration Lamotrigine 25 mg 09/21/18 18:00 09/30/18 09:26 Lamictal PO 25 mg BID HUONG Administration Lansoprazole 30 mg 09/27/18 22:00 09/30/18 09:25 Prevacid Solutab FEEDTUBE 30 mg BID HUONG Administration Levetiracetam 1,500 mg 09/28/18 10:00 09/30/18 09:26 Keppra PO 1,500 mg BID HUONG Administration Levothyroxine Sodium 75 mcg 09/22/18 06:00 09/30/18 06:26 Synthroid PO 75 mcg DAILY@0600 HUONG Administration Midodrine 5 mg 09/21/18 16:00 09/30/18 14:25 Proamatine PO 5 mg TID@0800,1200,1600 HUONG Administration Morphine Sulfate 2 mg 09/20/18 19:37 Morphine IV Q4H PRN Pain, Moderate (4-6) Multivitamins 1 each 09/24/18 10:00 09/30/18 09:25 Theragran Tab PO 1 each DAILY HUONG Administration Ondansetron HCl 4 mg 09/20/18 19:37 Zofran IV Q8H PRN Nausea And Vomiting Propranolol HCl 40 mg 09/23/18 15:00 09/30/18 09:26 Inderal PO 40 mg QDAY HUONG Administration Rifaximin 550 mg 09/21/18 22:00 09/30/18 09:25 Xifaxan PO 550 mg BID HUONG Administration Simple Syrup 15 ml 09/22/18 11:24 Simple Syrup FEEDTUBE PRN PRN Hypoglycemia Simple Syrup 30 ml 09/22/18 11:24 Simple Syrup FEEDTUBE PRN PRN Hypoglycemia Sodium Bicarbonate 325 mg 09/22/18 12:49 Sodium Bicarbonate FEEDTUBE PRN PRN For Clogged Feeding Tube Sodium Chloride 10 ml 09/20/18 22:00 09/30/18 09:27 Sodium Chloride Flush Syringe 10 Ml IV 10 ml BID HUONG Administration Spironolactone 50 mg 09/22/18 10:00 09/30/18 09:24 Aldactone PO 50 mg QDAY HUONG Administration Thiamine HCl 100 mg 09/22/18 10:00 09/30/18 09:28 Vitamin B-1 PO 100 mg QDAY HUONG Administration Trazodone HCl 50 mg 09/21/18 15:02 09/21/18 20:54 Desyrel PO 50 mg QHS PRN Administration Sleep Nutrition/Malnutrition Assess - Dietary Evaluation Nutrition/Malnutrition Findings: Nutrition Notes Start: 09/21/18 10:31 Freq: Status: Active Protocol: Document 09/28/18 17:23 RM (Rec: 09/28/18 17:27 RM [id number]) Nutrition Notes Initial or Follow up Reassessment Current Diagnosis Hypertension Other Pertinent Diagnosis Acute GIB, ETOH abuse, liver cirrhosis, dementia, hypothyroidism Current Diet GI soft Labs/Tests Reviewed Pertinent Medications Lasix Height 5 ft 4 in Weight 60.2 kg [place] Body Weight (kg) 54.54 BMI 22.8 Subjective/Other Information Per nurse pt ate 40% of her meals today. Percent of energy/protein needs met: 59%/69% Burn Absent Trauma Absent #2 Nutrition Diagnosis Inadequate oral intake As Evidenced by Signs and Symptoms pt nurse statement that pt ate 40% of her meals today Diagnosis Progress(for reassessment Improved documentation) Is patient on ventilator? No Is Patient Ambulatory and/or Out of Bed No REE-([facility]ela-confined to bed) [phone] Calculation Used for Recommendations [facility] Additional Notes Pro needs 0.8-1g/k-59g/ day Fluid needs per MD. Nutrition Intervention Change Diet Order: Continue curent Add Supplement/Snack (indicate name/kcal Ensure Enlive 1 daily /protein ) Provides kCal: 350 Provides Protein (gm) 20 Goal #1 Meet at least 75% of energy and protein needs Anticipated Discharge Needs: Unable to determine at this time Follow-Up By: 10/05/18 Additional Comments Follow for PO and ONS intakes
--- NOTE | 2018-09-30 14:45 | Progress Note ---
Assessment and Plan Cultures: Blood cultures 09/22/18: 1 out of 4 MRSA (Vanco HUY 2). Blood cultures 09/24/18: NGTD Occult blood stool positive Assessment: 62-year-old female with PMH of CAD, hypertension, COPD, hypothyroidism, dementia, alcohol abuse, liver cirrhosis, hepatic encephalopathy, seizures disorder, brain aneurysm, brain injury, who was brought to the ER by EMS on 09/20/18 with complaints of dark red bloody stool per rectum and increased lethargy over the last few days. Found to have: 1) MRSA bacteremia. 1 out of 4 blood culture bottles positive on 09/22/18. Repeat Blood culture on 09/24/18 NGTD. Unclear source. No central lines, no skin wounds, no hardware, ?endocarditis. Vancomycin HUY 2. TTE no vegetations. Unclear source. 2) Acute hepatic encephalopathy. Ammonia of 88 on admission. Improved on lactulose. 3) ETOH liver cirrhosis with portal hypertension and esophageal varices. No evidence of ascites on abdominal US done on admission. 4) Acute hypoxic respiratory failure, likely POA. CXR and CT chest no infiltrates. 5) Acute GIB. 6) H/o etoh abuse, dementia alcohol induced, brain aneurysm. 7) Thrombocytopenia: ? cirrhosis 8) Acute resp failure: on venturi mask, repeat CXR LLL pneumonia likely aspiration vs HAP 9) Isolated fever ? from new pneumonia Plan: -add cefepime and flagyl for now -continue daptomycin for now -place PICC for daptomycin 400 mg IV qday total 14 days until 10/07/2018. Order sent to cyanide case hardener for approval. Will follow Maddy Kaba MD Infectious Diseases Whiskey Filte[employer] [facility] [place] [facility] M [phone] O [phone] Subjective Date of service: 09/30/18 Principal diagnosis: rectal bleeding, cirrhosis Interval history: Patient feels sick, on ventiri mask, coughing ROS: as above rest neg Objective - Exam Narrative Exam: General appearance: Alert, in NAD, conversant, on NC O2 Eyes: anicteric sclerae, moist conjunctivae; no lid-lag; PERRLA HENT: Atraumatic; oropharynx clear with moist mucous membranes and no mucosal ulcerations/no oral thrush;+NGT Neck: Trachea midline; supple, no thyromegaly or lymphadenopathy Lungs: LLL crackles CV: RRR, no murmurs Abdomen: Soft, non-tender; no masses or hepatosplenomegaly Extremities: No peripheral edema or extremity lymphadenopathy Skin: Normal temperature, turgor and texture; no rash, ulcers or subcutaneous nodules Psych: alert no agitated Neuro: alert, follows commands. Grossly non-focal - Constitutional Vitals: Vital Signs Temp Pulse Resp BP Pulse Ox 98.4 F 75 20 103/57 90 09/30/18 12:05 09/30/18 12:05 09/30/18 12:05 09/30/18 12:05 09/30/18 12:05 Temperature -Last 24 Hours Temperature 98.4 F Temperature 98.3 F Temperature 98.9 F Temperature 98.2 F - Labs CBC & Chem 7: 09/29/18 08:48 09/26/18 06:56
[2018-09-30] MEDS: FLAGYL 500 MG/100 ML 500 MG/100 ML BAG IV SCH ×2 (18:39→22:36)
[2018-09-30] MEDS: MAXIPIME/NS 2 GM/100 ML 2 GM/100 ML BAG IV SCH (18:39)
--- NOTE | 2018-09-30 19:31 | XRay Report ---
PROCEDURE: XR ABDOMEN 1V AP TECHNIQUE: Abdominal radiograph, single view. HISTORY: [facility] and feeding COMPARISONS: 02/12/2017 . FINDINGS: Enteric tube tip is in the distal stomach. Bowel gas pattern is nonobstructive. There is probable cho lelithiasis. There may be left lung base airspace infiltrate. IMPRESSION: Enteric tube tip is in the distal stomach. Probable cholelithiasis. Possible left lung base airspace infiltrate. Correlate with recent radiograph. This document is electronically signed by Jina Traore MD., Sep 30 2018 07:29:49 PM ET
[2018-10-01] MEDS: FLAGYL 500 MG/100 ML 500 MG/100 ML BAG IV SCH ×3 (06:30→22:09)
[2018-10-01] MEDS: SYNTHROID PO SCH (07:01)
[2018-10-01] MEDS: MAXIPIME/NS 2 GM/100 ML 2 GM/100 ML BAG IV SCH ×2 (07:01→17:52)
[2018-10-01] MEDS: PROAMATINE PO SCH ×3 (08:00→16:11)
[2018-10-01] MEDS: CEPHULAC PO SCH ×3 (08:00→22:11)
[2018-10-01 08:15] LABS: Alanine Aminotransferase 27 units/L (7-56); Albumin 2.4 g/dL (3.9-5); BUN/Creatinine Ratio 23; Blood Urea Nitrogen 9 mg/dL (7-17); Calcium 7.7 mg/dL (8.4-10.2); Hemolysis Index 7
[2018-10-01] MEDS: DUONEB *Not for PRN Use IH SCH ×2 (08:53→20:31)
[2018-10-01] MEDS: INDERAL PO SCH (10:56)
[2018-10-01] MEDS: XIFAXAN PO SCH ×2 (10:57→21:54)
[2018-10-01] MEDS: DAPTOMYCIN IV SCH (10:57)
[2018-10-01] MEDS: BABY ASPIRIN PO SCH (10:57)
[2018-10-01] MEDS: NACL 0.9% IV SCH (10:57)
[2018-10-01] MEDS: KEPPRA PO SCH ×2 (10:57→21:53)
[2018-10-01] MEDS: LaMICtal PO SCH ×2 (10:58→21:54)
[2018-10-01] MEDS: FOLVITE PO SCH (10:58)
[2018-10-01] MEDS: SODIUM CHLORIDE FLUSH SYRINGE 10 ML IV SCH ×2 (10:58→22:09)
[2018-10-01] MEDS: VITAMIN B-1 PO SCH (10:58)
[2018-10-01] MEDS: PREVACID SOLUTAB FEEDTUBE SCH ×2 (10:58→21:54)
[2018-10-01] MEDS: LASIX PO SCH (10:58)
[2018-10-01] MEDS: FLONASE NS SCH (10:58)
[2018-10-01] MEDS: ALDACTONE PO SCH (10:58)
[2018-10-01] MEDS: THERAGRAN Tab PO SCH (10:58)
--- NOTE | 2018-10-01 11:23 | Progress Note ---
Assessment and Plan 62-year-old female with PMH of CAD, hypertension, COPD, hypothyroidism, dementia, alcohol abuse, liver cirrhosis, hepatic encephalopathy, seizures disorder, brain aneurysm, brain injury, who was brought to the ER by EMS on 09/20/18 with complaints of dark red bloody stool per rectum and increased lethargy over the last few days. Acute hypoxic respiratory failure, likely POA. CXR and CT chest no infiltrates on admission, now has LLL infiltrate, probable aspiration MRSA bacteremia. 1 out of 4 blood culture bottles positive on 09/22/18. Repeat Blood culture on 09/24/18 NGTD. Acute hepatic encephalopathy. ETOH liver cirrhosis with portal hypertension and esophageal varices. Acute GIB. H/O Alcohol abuse, dementia alcohol induced, brain aneurysm. Thrombocytopenia Pyrexia, isolated -Weansupplemental oxygen to keep O2 sats >90% -Antibiotics per ID -Modified diet per [employer] with aspiration precautions -VTE prophylaxis-SCDs -PT/OT to increase mobility -Continue medical management of hepatic encephalopathy -NGT feeding to continue for adequate nutritional support -Supportive transfusions as indicated -Continue to monitor H and H and hemodynamics -Incentive spirometry, left lower lobe infiltrate is possible atelectasis -Follow up CXR in the next 4-5 days -Bronchodilators per protocol Discussed with RN at the bedside Update the patient re care plan Subjective Date of service: 10/01/18 Principal diagnosis: rectal bleeding, cirrhosis Interval history: Patient is seen today for: acute hypoxic respiratory failure: acute metabolic encephalopathy, GI bleed, LLL infiltrate Seen and examined at bedside; 24-hour events reviewed; nursing and respiratory care staff consulted; no adverse overnight events reported to me; Resting peacefully in bed, no fevers, no nausea or vomiting. On venturi mask, denies any chest pain, no shortness of breath Objective - Exam Narrative Exam: General appearance: Chronically ill looking, alert, awake Eyes: anicteric sclerae, moist conjunctivae; no lid-lag; PERRLA HENT: Atraumatic; oropharynx clear with moist mucous membranes and no mucosal ulcerations/no oral thrush;+NGT Neck: Trachea midline; supple, no thyromegaly or lymphadenopathy Lungs: CTA, with normal respiratory effort and no intercostal retractions CV: RRR, S1, S2, no murmurs Abdomen: Soft, non-tender; no masses or hepatosplenomegaly Extremities: No peripheral edema or extremity lymphadenopathy UExt PICC line, bilateral upper digital clubbing Skin: Normal temperature, turgor and texture; no rash, ulcers or subcutaneous nodules Psych: alert no agitated Neuro: Awake, alert, obeys commands, non-focal, slow speech Vital Signs - 12hr 09/30/18 10/01/18 23:34 05:21 Temperature 98.4 F 98.5 F Pulse Rate 73 80 Respiratory 22 24 Rate Blood Pressure 89/52 92/54 O2 Sat by Pulse 92 92 Oximetry Constitutional: no acute distress, alert Eyes: non-icteric ENT: oropharynx dry Neck: supple, no lymphadenopathy Effort: normal Ascultation: Bilateral: diminished breath sounds Cardiovascular: regular rate and rhythm, other (S1,S2) Gastrointestinal: normoactive bowel sounds, soft, non-tender, non-distended Integumentary: normal, rash Extremities: no cyanosis, no edema, other (bilateral digital clubbing) Neurologic: normal mental status, non-focal exam, pupils equal and round, motor strength normal and Psychiatric: mood appropriate, affect normal CBC and BMP: 09/29/18 08:48 10/01/18 07:26 ABG, PT/INR, D-dimer: ABG POC ABG pH 7.460 (7.35-7.45) H 09/24/18 17:01 POC ABG pCO2 31.2 (35-45) L 09/24/18 17:01 POC ABG pO2 73 (80-105) L 09/24/18 17:01 POC ABG HCO3 22.1 (22-26 mml/L) 09/24/18 17:01 POC ABG Total CO2 23 (23-27mmol/L) 09/24/18 17:01 POC ABG O2 Sat 95 09/24/18 17:01 PT/INR, D-dimer PT 17.1 Sec. (12.2-14.9) H 09/24/18 05:33 INR 1.31 (0.87-1.13) H 09/24/18 05:33 Abnormal lab findings: Abnormal Labs 09/20/18 09/20/18 09/20/18 17:46 17:46 17:54 RBC MCHC RDW 19.8 H Plt Count Lymph % (Auto) Gibson % (Auto) Lymph # Seg Neutrophils % Seg Neuts % (Manual) Lymphocytes % (Manual) Monocytes % (Manual) Nucleated RBC % Lymphocytes # (Manual) Monocytes # (Manual) PT 17.5 H INR 1.35 H POC ABG pH POC ABG pCO2 POC ABG pO2 Sodium Potassium Chloride BUN Creatinine 0.6 L Glucose Calcium Direct Bilirubin AST Alkaline Phosphatase Ammonia Total Protein Albumin 3.7 L 09/20/18 09/22/18 09/23/18 17:55 12:16 07:01 RBC MCHC RDW Plt Count Lymph % (Auto) Gibson % (Auto) Lymph # Seg Neutrophils % Seg Neuts % (Manual) Lymphocytes % (Manual) Monocytes % (Manual) Nucleated RBC % Lymphocytes # (Manual) Monocytes # (Manual) PT INR POC ABG pH POC ABG pCO2 POC ABG pO2 Sodium Potassium Chloride BUN Creatinine Glucose Calcium Direct Bilirubin AST Alkaline Phosphatase Ammonia 88.0 H 134.0 H 106.0 H Total Protein Albumin 09/23/18 09/23/18 09/24/18 09:57 09:57 05:33 RBC MCHC RDW 19.9 H Plt Count Lymph % (Auto) Gibson % (Auto) Lymph # Seg Neutrophils % Seg Neuts % (Manual) Lymphocytes % (Manual) Monocytes % (Manual) Nucleated RBC % Lymphocytes # (Manual) Monocytes # (Manual) PT 17.1 H INR 1.31 H POC ABG pH POC ABG pCO2 POC ABG pO2 Sodium Potassium 3.5 L Chloride BUN Creatinine 0.5 L Glucose 157 H Calcium 8.0 L Direct Bilirubin AST Alkaline Phosphatase Ammonia Total Protein 6.0 L Albumin 3.2 L 09/24/18 09/24/18 09/24/18 05:33 05:33 17:01 RBC MCHC RDW Plt Count Lymph % (Auto) Gibson % (Auto) Lymph # Seg Neutrophils % Seg Neuts % (Manual) Lymphocytes % (Manual) Monocytes % (Manual) Nucleated RBC % Lymphocytes # (Manual) Monocytes # (Manual) PT INR POC ABG pH 7.460 H POC ABG pCO2 31.2 L POC ABG pO2 73 L Sodium Potassium Chloride BUN 6 L Creatinine 0.5 L Glucose 161 H Calcium Direct Bilirubin AST Alkaline Phosphatase Ammonia 77.0 H Total Protein Albumin 09/26/18 09/26/18 09/26/18 06:56 06:56 06:56 RBC MCHC RDW 19.6 H Plt Count 137 L Lymph % (Auto) Gibson % (Auto) Lymph # Seg Neutrophils % Seg Neuts % (Manual) Lymphocytes % (Manual) Monocytes % (Manual) Nucleated RBC % Lymphocytes # (Manual) Monocytes # (Manual) PT INR POC ABG pH POC ABG pCO2 POC ABG pO2 Sodium 136 L Potassium Chloride BUN Creatinine 0.4 L Glucose 130 H Calcium 8.3 L Direct Bilirubin AST 41 H Alkaline Phosphatase 133 H Ammonia 92.0 H Total Protein 5.9 L Albumin 3.1 L 09/27/18 09/27/18 09/29/18 05:43 05:43 08:48 RBC 3.53 L MCHC 35 H RDW 19.3 H Plt Count 122 L Lymph % (Auto) 6.9 L Gibson % (Auto) 9.5 H Lymph # 0.5 L Seg Neutrophils % 82.4 H Seg Neuts % (Manual) Lymphocytes % (Manual) Monocytes % (Manual) Nucleated RBC % Lymphocytes # (Manual) Monocytes # (Manual) PT INR POC ABG pH POC ABG pCO2 POC ABG pO2 Sodium Potassium Chloride BUN Creatinine Glucose Calcium Direct Bilirubin 0.4 H AST Alkaline Phosphatase 169 H Ammonia 65.0 H Total Protein 5.6 L Albumin 2.9 L 09/29/18 09/29/18 10/01/18 08:48 08:48 07:26 RBC 3.50 L MCHC RDW 20.3 H Plt Count 128 L Lymph % (Auto) Gibson % (Auto) Lymph # Seg Neutrophils % Seg Neuts % (Manual) 80.0 H Lymphocytes % (Manual) 7.0 L Monocytes % (Manual) 11.0 H Nucleated RBC % 1.0 H Lymphocytes # (Manual) 0.6 L Monocytes # (Manual) 1.0 H PT INR POC ABG pH POC ABG pCO2 POC ABG pO2 Sodium 133 L Potassium 3.4 L Chloride 97.7 L BUN Creatinine 0.4 L Glucose 147 H Calcium 7.7 L Direct Bilirubin AST Alkaline Phosphatase 185 H Ammonia 72.0 H Total Protein 5.1 L Albumin 2.4 L 10/01/18 07:26 RBC MCHC RDW Plt Count Lymph % (Auto) Gibson % (Auto) Lymph # Seg Neutrophils % Seg Neuts % (Manual) Lymphocytes % (Manual) Monocytes % (Manual) Nucleated RBC % Lymphocytes # (Manual) Monocytes # (Manual) PT INR POC ABG pH POC ABG pCO2 POC ABG pO2 Sodium Potassium Chloride BUN Creatinine Glucose Calcium Direct Bilirubin AST Alkaline Phosphatase Ammonia 82.0 H Total Protein Albumin Allied health notes reviewed: nursing
--- NOTE | 2018-10-01 12:14 | Progress Note ---
Assessment and Plan Cultures: Blood cultures 09/22/18: 1 out of 4 MRSA (Vanco HUY 2). Blood cultures 09/24/18: NGTD Occult blood stool positive Assessment: 62-year-old female with PMH of CAD, hypertension, COPD, hypothyroidism, dementia, alcohol abuse, liver cirrhosis, hepatic encephalopathy, seizures disorder, brain aneurysm, brain injury, who was brought to the ER by EMS on 09/20/18 with complaints of dark red bloody stool per rectum and increased lethargy over the last few days. Found to have: 1) MRSA bacteremia. 1 out of 4 blood culture bottles positive on 09/22/18. Repeat Blood culture on 09/24/18 NGTD. Unclear source. No central lines, no skin wounds, no hardware, ?endocarditis. Vancomycin HUY 2. TTE no vegetations. Unclear source. 2) Acute hepatic encephalopathy. Ammonia of 88 on admission. Improved on lactulose. 3) ETOH liver cirrhosis with portal hypertension and esophageal varices. No evidence of ascites on abdominal US done on admission. 4) Acute hypoxic respiratory failure, likely POA. CXR and CT chest no infiltrates. 5) Acute GIB. 6) H/o etoh abuse, dementia alcohol induced, brain aneurysm. 7) Thrombocytopenia: ? cirrhosis 8) Acute resp failure: on venturi mask, repeat CXR LLL pneumonia likely aspiration vs HAP 9) Isolated fever ? from new pneumonia Plan: -continue cefepime and flagyl D2 of 5 -continue daptomycin D6 -place PICC for daptomycin 400 mg IV qday total 14 days until 10/07/2018. Will [address] Powell will be covering this weekend Maddy Kaba MD Infectious Diseases Project Superintendent [facility] M [phone] O [phone] Subjective Date of service: 10/01/18 Principal diagnosis: rectal bleeding, cirrhosis Interval history: Patient feels better, no SOB. No fever. ROS: as above rest neg Objective - Exam Narrative Exam: General appearance: Alert, in NAD, conversant, on mask O2 Eyes: anicteric sclerae, moist conjunctivae; no lid-lag; PERRLA HENT: Atraumatic; oropharynx clear with moist mucous membranes and no mucosal ulcerations/no oral thrush;+NGT Neck: Trachea midline; supple, no thyromegaly or lymphadenopathy Lungs: LLL crackles CV: RRR, no murmurs Abdomen: Soft, non-tender; no masses or hepatosplenomegaly Extremities: No peripheral edema or extremity lymphadenopathy Skin: Normal temperature, turgor and texture; no rash, ulcers or subcutaneous nodules Psych: alert no agitated Neuro: alert, follows commands. Grossly non-focal - Constitutional Vitals: Vital Signs Temp Pulse Resp BP Pulse Ox 98.5 F 80 24 92/54 92 10/01/18 05:21 10/01/18 05:21 10/01/18 05:21 10/01/18 05:21 10/01/18 05:21 Temperature -Last 24 Hours Temperature 98.5 F Temperature 98.4 F Temperature 98.1 F - Labs CBC & Chem 7: 09/29/18 08:48 10/01/18 07:26 Labs: Abnormal lab results 10/01/18 10/01/18 Range/Units 07:26 07:26 Sodium 133 L (137-145) mmol/L Potassium 3.4 L (3.6-5.0) mmol/L Chloride 97.7 L (98-107) mmol/L Creatinine 0.4 L (0.7-1.2) mg/dL Glucose 147 H (65-100) mg/dL Calcium 7.7 L (8.4-10.2) mg/dL Alkaline Phosphatase 185 H (35-129) units/L Ammonia 82.0 H (25-60) umol/L Total Protein 5.1 L (6.3-8.2) g/dL Albumin 2.4 L (3.9-5) g/dL
--- NOTE | 2018-10-01 13:51 | Progress Note ---
Assessment and Plan Assessment and plan: Patient is a 62-year-old female with PMHx of CAD, hypertension, COPD, hypothyroidism, dementia, alcohol abuse, liver cirrhosis, h/o hepatic encephalopathy, seizures disorder, and brain aneurysm, brain injury, who was brought to the ER by EMS for complaints of bloody dark red stool in the morning. In the ER, her ammonia level was 88, pt is admitted for further evaluation and treatment. She was refusing PO and mental status and respiratory status continue to decline. Lactulose started with NG tube, blood cx grew MRSA. ID consulted for abx recommendation. Acute hypoxic respiratory failure, likely POA - Possible ARDS from sepsis?? pulmonary edema due to sepsis and hepatic failure ?? - Hypoxic on RA O2 sat, CXR without any infiltrates - CTA chest showed no acute PE, preserved EF on 2d echo - require facemask O2 to maintain sat - nebs scheduled and as needed, consulted pulmonary Bacteremia, MRSA with possible sepsis (encephalopathy, respiratory failure, worsening hepatic function from baseline), likely POA - 1 out of 4 blood culture bottles positive on 09/22/18. Repeat Blood culture on 09/24/18 NGTD - placed on vancomycin then changed to daptomycin - contact isolation, ID consulted, no vegetation on TTE with preserved EF - -Anticipate discharge on Cubicin (daptomycin) 400 mg IV qday total 14 days until , picc line placed Acute GIB (etiology unclear) - Continue to monitor H&H, which is stable so far -etiology-patient has a hx of alcoholic cirrhosis 2/2 former ETOH abuse with varices and HE -GI consulted, no planned for endoscopy if H&H remains stable - Already has outpatient follow-up for EGD/colonoscopy - cont Protonix, IVF for hydration as needed Acute on chronic encephalopathy, present on admission - Likely Hepatic encephalopathy (ammonia trended upto 138) - -abdominal U/S showed advanced cirrhosis and gallstones but no mass or ascites - Continue lactulose, Mental status much improved now with lactulose Hepatic cirrhosis with portal hypertension and esophageal varices - Due to alcohol abuse -GI following, continue to monitor clinically Dysphagia - On mechanical soft diet - Dietary supplementation - DC NG tube Other chronic issues: Hypertension H/o CAD H/o alcohol abuse H/o seizures disorder H/o brain aneurysm Hypothyroidism H/o dementia, alcohol induced - cont home meds, supportive care, hold plavix - No heparin for DVT prophylasix due to bleeding, placed on SCD Disposition: SNF placement pending. Discussed with personal home care and said will not the patient now. History Interval history: Patient was seen and evaluated this morning, patient was alert and cooperative but is demented. Hospitalist Physical - Physical exam Narrative exam: Patient is on facemask, NG tube in place The patient appeared well nourished and normally developed. Vital signs as documented. Head exam is unremarkable. No scleral icterus . Neck is without jugular venous distension, thyromegaly, or carotid bruits. Lungs are clear to auscultation. Cardiac exam reveals regular rate and Rhythm. Abdominal exam reveals normal bowel sounds. Extremities are nonedematous and both femoral and pedal pulses are normal. FAST FOOD SERVER: Alert and oriented 3. No focal weakness. - Constitutional Vitals: Temp Pulse Resp BP Pulse Ox 98.5 F 90 18 92/54 93 10/01/18 05:21 10/01/18 09:05 10/01/18 09:05 10/01/18 05:21 10/01/18 10:00 General appearance: Present: no acute distress Results - Labs CBC & Chem 7: 09/29/18 08:48 10/01/18 07:26 Labs: Laboratory Last Values WBC 9.0 K/mm3 (4.5-11.0) 09/29/18 08:48 RBC 3.50 M/mm3 (3.65-5.03) L 09/29/18 08:48 Hgb 10.4 gm/dl (10.1-14.3) 09/29/18 08:48 Hgb 10.4 gm/dl (10.1-14.3) 09/29/18 08:48 Hct 31.0 % (30.3-42.9) 09/29/18 08:48 Hct 31.0 % (30.3-42.9) 09/29/18 08:48 MCV 88 fl (79-97) 09/29/18 08:48 MCH 30 pg (28-32) 09/29/18 08:48 MCHC 34 % (30-34) 09/29/18 08:48 RDW 20.3 % (13.2-15.2) H 09/29/18 08:48 Plt Count 128 K/mm3 (140-440) L 09/29/18 08:48 Lymph % (Auto) 6.9 % (13.4-35.0) L 09/27/18 05:43 Benson % (Auto) 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 09/29/18 08:48 Eos % (Auto) 0.8 % (0.0-4.3) 09/27/18 05:43 Baso % (Auto) 0.4 % (0.0-1.8) 09/27/18 05:43 Lymph # 0.5 K/mm3 (1.2-5.4) L 09/27/18 05:43 Benson # 0.6 K/mm3 (0.0-0.8) 09/27/18 05:43 Eos # 0.1 K/mm3 (0.0-0.4) 09/27/18 05:43 Baso # 0.0 K/mm3 (0.0-0.1) 09/27/18 05:43 Add Manual Diff Complete 09/29/18 08:48 Total Counted 100 09/29/18 08:48 Seg Neutrophils % 82.4 % (40.0-70.0) H 09/27/18 05:43 Seg Neuts % (Manual) 80.0 % (40.0-70.0) H 09/29/18 08:48 0 % 09/29/18 08:48 7.0 % (13.4-35.0) L 09/29/18 08:48 Reactive Lymphs % (Man) 0 % 09/29/18 08:48 11.0 % (0.0-7.3) H 09/29/18 08:48 2.0 % (0.0-4.3) 09/29/18 08:48 0 % (0.0-1.8) 09/29/18 08:48 0 % 09/29/18 08:48 0 % 09/29/18 08:48 0 % 09/29/18 08:48 0 % 09/29/18 08:48 Nucleated RBC % 1.0 % (0.0-0.9) H 09/29/18 08:48 Seg Neutrophils # 5.6 K/mm3 (1.8-7.7) 09/27/18 05:43 Seg Neutrophils # Man 7.2 K/mm3 (1.8-7.7) 09/29/18 08:48 Band Neutrophils # 0.0 K/mm3 09/29/18 08:48 0.6 K/mm3 (1.2-5.4) L 09/29/18 08:48 Abs React Lymphs (Man) 0.0 K/mm3 09/29/18 08:48 1.0 K/mm3 (0.0-0.8) H 09/29/18 08:48 0.2 K/mm3 (0.0-0.4) 09/29/18 08:48 0.0 K/mm3 (0.0-0.1) 09/29/18 08:48 0.0 K/mm3 09/29/18 08:48 0.0 K/mm3 09/29/18 08:48 0.0 K/mm3 09/29/18 08:48 Blast Cells # 0.0 K/mm3 09/29/18 08:48 WBC Morphology Not Reportable 09/29/18 08:48 Hypersegmented Neuts Not Reportable 09/29/18 08:48 Hyposegmented Neuts Not Reportable 09/29/18 08:48 Hypogranular Neuts Not Reportable 09/29/18 08:48 Not Reportable 09/29/18 08:48 Not Reportable 09/29/18 08:48 Not Reportable 09/29/18 08:48 Not Reportable 09/29/18 08:48 Not Reportable 09/29/18 08:48 Not Reportable 09/29/18 08:48 Consistent w auto 09/29/18 08:48 Not Reportable 09/29/18 08:48 Plt Clumps, EDTA Not Reportable 09/29/18 08:48 Not Reportable 09/29/18 08:48 Not Reportable 09/29/18 08:48 Not Reportable 09/29/18 08:48 Plt Morphology Comment Not Reportable 09/29/18 08:48 RBC Morphology Not Reportable 09/29/18 08:48 Dimorphic RBCs Not Reportable 09/29/18 08:48 Not Reportable 09/29/18 08:48 Not Reportable 09/29/18 08:48 1+ 09/29/18 08:48 1+ 09/29/18 08:48 Not Reportable 09/29/18 08:48 Not Reportable 09/29/18 08:48 Not Reportable 09/29/18 08:48 Not Reportable 09/29/18 08:48 Not Reportable 09/29/18 08:48 Not Reportable 09/29/18 08:48 Not Reportable 09/29/18 08:48 Few 09/29/18 08:48 Not Reportable 09/29/18 08:48 Not Reportable 09/29/18 08:48 Not Reportable 09/29/18 08:48 Not Reportable 09/29/18 08:48 Not Reportable 09/29/18 08:48 Not Reportable 09/29/18 08:48 Few 09/29/18 08:48 Acanthocytes (Spur) Not Reportable 09/29/18 08:48 Rouleaux Not Reportable 09/29/18 08:48 Not Reportable 09/29/18 08:48 Not Reportable 09/29/18 08:48 Not Reportable 09/29/18 08:48 Not Reportable 09/29/18 08:48 Hem Pathologist Commnt No 09/29/18 08:48 PT 17.1 Sec. (12.2-14.9) H 09/24/18 05:33 INR 1.31 (0.87-1.13) H 09/24/18 05:33 APTT 30.5 Sec. (24.2-36.6) 09/20/18 17:54 POC ABG pH 7.460 (7.35-7.45) H 09/24/18 17:01 POC ABG pCO2 31.2 (35-45) L 09/24/18 17:01 POC ABG pO2 73 (80-105) L 09/24/18 17:01 POC ABG HCO3 22.1 (22-26 mml/L) 09/24/18 17:01 POC ABG Total CO2 23 (23-27mmol/L) 09/24/18 17:01 POC ABG O2 Sat 95 09/24/18 17:01 POC ABG Base Excess -2 ((-2) - (+3)mmol/L) 09/24/18 17:01 50 % 09/24/18 17:01 Sodium 133 mmol/L (137-145) L 10/01/18 07:26 Potassium 3.4 mmol/L (3.6-5.0) L 10/01/18 07:26 Chloride 97.7 mmol/L (98-107) L 10/01/18 07:26 Carbon Dioxide 24 mmol/L (22-30) 10/01/18 07:26 15 mmol/L 10/01/18 07:26 BUN 9 mg/dL (7-17) 10/01/18 07:26 0.4 mg/dL (0.7-1.2) L 10/01/18 07:26 Estimated GFR > 60 ml/min 10/01/18 07:26 23 % 10/01/18 07:26 Glucose 147 mg/dL (65-100) H 10/01/18 07:26 Calcium 7.7 mg/dL (8.4-10.2) L 10/01/18 07:26 0.90 mg/dL (0.1-1.2) 10/01/18 07:26 0.4 mg/dL (0-0.2) H 09/29/18 08:48 0.5 mg/dL 09/29/18 08:48 AST 38 units/L (5-40) 10/01/18 07:26 ALT 27 units/L (7-56) 10/01/18 07:26 185 units/L (35-129) H 10/01/18 07:26 82.0 umol/L (25-60) H 10/01/18 07:26 87 units/L (30-135) 09/26/18 06:56 5.1 g/dL (6.3-8.2) L 10/01/18 07:26 2.4 g/dL (3.9-5) L 10/01/18 07:26 0.9 % 10/01/18 07:26 Yellow (Yellow) 09/22/18 17:20 Clear (Clear) 09/22/18 17:20 6.0 (5.0-7.0) 09/22/18 17:20 Ur Specific Rarden 1.011 (1.003-1.030) 09/22/18 17:20 <15 mg/dl mg/dL (Negative) 09/22/18 17:20 Neg mg/dL (Negative) 09/22/18 17:20 Neg mg/dL (Negative) 05/15/19 17:20 Mod (Negative) 09/22/18 17:20 Pos (Negative) 09/22/18 17:20 Neg (Negative) 09/22/18 17:20 < 2.0 mg/dL (<2.0) 09/22/18 17:20 Ur Leukocyte Esterase Tr (Negative) 09/22/18 17:20 1.0 /HPF (0.0-6.0) 09/22/18 17:20 < 1.0 /HPF (0.0-6.0) 09/22/18 17:20 Few /HPF 09/22/18 17:20 Blood Type B POSITIVE 09/20/18 17:46 Antibody Screen Negative 09/20/18 17:46 Active Medications - Current Medications Current Medications: Generic Name Dose Route Start Last Admin Trade Name Freq PRN Reason Stop Dose Admin Acetaminophen 650 mg 09/20/18 19:37 09/26/18 21:05 Tylenol PO 650 mg Q4H PRN Administration Pain MILD(1-3)/Fever >100.5/PÉREZ Albuterol 2.5 mg 09/21/18 07:40 Proventil IH Q4HRT PRN Shortness Of Breath Albuterol/Ipratropium 1 ampul 09/21/18 20:00 10/01/18 08:53 Duoneb *Not For Prn Use* IH 1 ampul BIDRT HUONG Administration Lipase/Protease/Amylase 1 each 09/22/18 11:24 Pancreazabi Mix 10,500 Unit FEEDTUBE PRN PRN For Clogged Feeding Tube Aspirin 81 mg 09/21/18 10:00 10/01/18 10:57 Baby Aspirin PO 81 mg DAILY HUONG Administration Fluticasone Propionate 50 mcg 09/24/18 10:00 10/01/18 10:58 Flonase NS 50 mcg QDAY HUONG Administration Folic Acid 1 mg 09/21/18 10:00 10/01/18 10:58 Folvite PO 1 mg QDAY HUONG Administration Furosemide 20 mg 09/21/18 10:00 10/01/18 10:58 Lasix PO 20 mg QDAY HUONG Administration Daptomycin 366 mg/ Sodium 100 mls @ 200 mls/hr 09/26/18 11:00 10/01/18 10:57 Chloride IV 10/07/18 11:29 200 mls/hr Q24H HUONG Administration Protocol Cefepime HCl 2 gm in 100 mls @ 200 mls/hr 09/30/18 17:00 10/01/18 07:01 Maxipime/Ns 2 Gm/100 Ml IV 200 mls/hr Q12HR@0600,1800 HUONG Administration Protocol Metronidazole 500 mg in 100 mls @ 100 mls/hr 09/30/18 15:00 10/01/18 06:30 Flagyl 500 Mg/100 Ml IV 100 mls/hr Q8HR HUONG Administration Protocol Lactulose 30 gm 09/21/18 08:00 10/01/18 08:00 Cephulac PO 30 gm TID HUONG Administration Lamotrigine 25 mg 09/21/18 18:00 10/01/18 10:58 Lamictal PO 25 mg BID HUONG Administration Lansoprazole 30 mg 09/27/18 22:00 10/01/18 10:58 Prevacid Solutab FEEDTUBE 30 mg BID HUONG Administration Levetiracetam 1,500 mg 09/28/18 10:00 10/01/18 10:57 Keppra PO 1,500 mg BID HUONG Administration Levothyroxine Sodium 75 mcg 09/22/18 06:00 10/01/18 07:01 Synthroid PO 75 mcg DAILY@0600 HUONG Administration Midodrine 5 mg 09/21/18 16:00 10/01/18 08:00 Proamatine PO 5 mg TID@0800,1200,1600 HUONG Administration Morphine Sulfate 2 mg 09/20/18 19:37 Morphine IV Q4H PRN Pain, Moderate (4-6) Multivitamins 1 each 09/24/18 10:00 10/01/18 10:58 Theragran Tab PO 1 each DAILY HUONG Administration Ondansetron HCl 4 mg 09/20/18 19:37 Zofran IV Q8H PRN Nausea And Vomiting Propranolol HCl 40 mg 09/23/18 15:00 10/01/18 10:56 Inderal PO 40 mg QDAY HUONG Administration Rifaximin 550 mg 09/21/18 22:00 10/01/18 10:57 Xifaxan PO 550 mg BID HUONG Administration Simple Syrup 15 ml 09/22/18 11:24 Simple Syrup FEEDTUBE PRN PRN Hypoglycemia Simple Syrup 30 ml 09/22/18 11:24 Simple Syrup FEEDTUBE PRN PRN Hypoglycemia Sodium Bicarbonate 325 mg 09/22/18 12:49 Sodium Bicarbonate FEEDTUBE PRN PRN For Clogged Feeding Tube Sodium Chloride 10 ml 09/20/18 22:00 10/01/18 10:58 Sodium Chloride Flush Syringe 10 Ml IV 10 ml BID HUONG Administration Spironolactone 50 mg 09/22/18 10:00 10/01/18 10:58 Aldactone PO 50 mg QDAY HUONG Administration Thiamine HCl 100 mg 09/22/18 10:00 10/01/18 10:58 Vitamin B-1 PO 100 mg QDAY HUONG Administration Trazodone HCl 50 mg 09/21/18 15:02 09/21/18 20:54 Desyrel PO 50 mg QHS PRN Administration Sleep Nutrition/Malnutrition Assess - Dietary Evaluation Nutrition/Malnutrition Findings: Nutrition Notes Start: 09/21/18 10:31 Freq: Status: Active Protocol: Document 09/28/18 17:23 RM (Rec: 09/28/18 17:27 RM [id number]) Nutrition Notes Initial or Follow up Reassessment Current Diagnosis Hypertension Other Pertinent Diagnosis Acute GIB, ETOH abuse, liver cirrhosis, dementia, hypothyroidism Current Diet GI soft Labs/Tests Reviewed Pertinent Medications Lasix Height 5 ft 4 in Weight 60.2 kg [place] Body Weight (kg) 54.54 BMI 22.8 Subjective/Other Information Per nurse pt ate 40% of her meals today. Percent of energy/protein needs met: 59%/69% Burn Absent Trauma Absent #2 Nutrition Diagnosis Inadequate oral intake As Evidenced by Signs and Symptoms pt nurse statement that pt ate 40% of her meals today Diagnosis Progress(for reassessment Improved documentation) Is patient on ventilator? No Is Patient Ambulatory and/or Out of Bed No REE-(Cla[place]orne-St. Jeor-confined to bed) 3215.536 Calculation Used for Recommendations [place]-St Jeor Additional Notes Pro needs 0.8-1g/k-59g/ day Fluid needs per MD. Nutrition Intervention Change Diet Order: Continue curent Add Supplement/Snack (indicate name/kcal Ensure Enlive 1 daily /protein ) Provides kCal: 350 Provides Protein (gm) 20 Goal #1 Meet at least 75% of energy and protein needs Anticipated Discharge Needs: Unable to determine at this time Follow-Up By: 10/05/18 Additional Comments Follow for PO and ONS intakes
[2018-10-01] MEDS ORDERED: POTASSIUM CHLORIDE FEEDTUBE ONE (14:51)
[2018-10-02] MEDS: SYNTHROID PO SCH (06:07)
[2018-10-02] MEDS: FLAGYL 500 MG/100 ML 500 MG/100 ML BAG IV SCH ×3 (06:07→21:34)
[2018-10-02] MEDS: MAXIPIME/NS 2 GM/100 ML 2 GM/100 ML BAG IV SCH ×2 (06:11→18:15)
[2018-10-02] MEDS: DUONEB *Not for PRN Use IH SCH ×2 (07:28→20:55)
--- NOTE | 2018-10-02 09:43 | Progress Note ---
Assessment and Plan 62-year-old female with PMH of CAD, hypertension, COPD, hypothyroidism, dementia, alcohol abuse, liver cirrhosis, hepatic encephalopathy, seizures disorder, brain aneurysm, brain injury, who was brought to the ER by EMS on 09/20/18 with complaints of dark red bloody stool per rectum and increased lethargy over the last few days. Acute hypoxic respiratory failure, likely POA. CXR and CT chest no infiltrates on admission, now has LLL infiltrate, probable aspiration MRSA bacteremia. 1 out of 4 blood culture bottles positive on 09/22/18. Repeat Blood culture on 09/24/18 NGTD. Acute hepatic encephalopathy. ETOH liver cirrhosis with portal hypertension and esophageal varices. Acute GIB. H/O Alcohol abuse, dementia alcohol induced, brain aneurysm. Thrombocytopenia Pyrexia, isolated -Wean supplemental oxygenfor O2 sats >90% -Antibiotics per ID -Modified diet per ELEVATING GRADER OPERATOR with aspiration precautions -VTE prophylaxis-SCDs -PT/OT to increase mobility -Continue medical management of hepatic encephalopathy -Supportive transfusions as indicated -Continue to monitor H and H and hemodynamics -Incentive spirometry, left lower lobe infiltrate is possible atelectasis -Follow up CXR in the next 72 hours -Bronchodilators per protocol Discussed with RN at the bedside Discussed with hospitalist service, discharge planning Updated the patient re care plan Subjective Date of service: 10/02/18 Principal diagnosis: rectal bleeding, cirrhosis Interval history: Patient is seen today for: acute hypoxic respiratory failure: acute metabolic encephalopathy, GI bleed, LLL infiltrate Seen and examined at bedside; 24-hour events reviewed; nursing and respiratory care staff consulted; no adverse overnight events reported to me; Resting peacefully in bed. Denies any chest pain, no shortness of breath. NGT has been discontinued. No nausea or vomiting, no abdominal pain "Could you tell me how I got here?" Objective Vital Signs - 12hr 10/01/18 10/01/18 10/02/18 22:00 22:05 00:00 Temperature 98.4 F Pulse Rate 84 Pulse Rate [ Anterior Bilateral Throughout] Pulse Rate [ Anterior Left Throughout] Respiratory 20 16 Rate Respiratory Rate [Anterior Bilateral Throughout] Respiratory Rate [Anterior Left Throughout ] Blood Pressure Blood Pressure 107/62 [Right] O2 Sat by Pulse 95 95 Oximetry 10/02/18 10/02/18 10/02/18 05:49 07:30 07:37 Temperature 98.9 F Pulse Rate 77 Pulse Rate [ 84 Anterior Bilateral Throughout] Pulse Rate [ 82 Anterior Left Throughout] Respiratory 20 Rate Respiratory 18 Rate [Anterior Bilateral Throughout] Respiratory 18 Rate [Anterior Left Throughout ] Blood Pressure 102/62 Blood Pressure [Right] O2 Sat by Pulse 89 Oximetry 10/02/18 07:40 Temperature Pulse Rate Pulse Rate [ Anterior Bilateral Throughout] Pulse Rate [ Anterior Left Throughout] Respiratory Rate Respiratory Rate [Anterior Bilateral Throughout] Respiratory Rate [Anterior Left Throughout ] Blood Pressure Blood Pressure [Right] O2 Sat by Pulse 94 Oximetry Constitutional: no acute distress, alert Eyes: non-icteric ENT: oropharynx dry Neck: supple, no lymphadenopathy Effort: normal Ascultation: Bilateral: diminished breath sounds Cardiovascular: regular rate and rhythm, other (S1,S2) Gastrointestinal: normoactive bowel sounds, soft, non-tender Integumentary: normal, rash Extremities: no cyanosis, no edema, pulses normal, other (Digital clubbing) Neurologic: normal mental status, non-focal exam, pupils equal and round, motor strength normal and Psychiatric: mood appropriate, affect normal CBC and BMP: 09/29/18 08:48 10/01/18 07:26 ABG, PT/INR, D-dimer: ABG POC ABG pH 7.460 (7.35-7.45) H 09/24/18 17:01 POC ABG pCO2 31.2 (35-45) L 09/24/18 17:01 POC ABG pO2 73 (80-105) L 09/24/18 17:01 POC ABG HCO3 22.1 (22-26 mml/L) 09/24/18 17:01 POC ABG Total CO2 23 (23-27mmol/L) 09/24/18 17:01 POC ABG O2 Sat 95 09/24/18 17:01 PT/INR, D-dimer PT 17.1 Sec. (12.2-14.9) H 09/24/18 05:33 INR 1.31 (0.87-1.13) H 09/24/18 05:33 Abnormal lab findings: Abnormal Labs 09/20/18 09/20/18 09/20/18 17:46 17:46 17:54 RBC MCHC RDW 19.8 H Plt Count Lymph % (Auto) Piatt % (Auto) Lymph # Seg Neutrophils % Seg Neuts % (Manual) Lymphocytes % (Manual) Monocytes % (Manual) Nucleated RBC % Lymphocytes # (Manual) Monocytes # (Manual) PT 17.5 H INR 1.35 H POC ABG pH POC ABG pCO2 POC ABG pO2 Sodium Potassium Chloride BUN Creatinine 0.6 L Glucose Calcium Direct Bilirubin AST Alkaline Phosphatase Ammonia Total Protein Albumin 3.7 L 09/20/18 09/22/18 09/23/18 17:55 12:16 07:01 RBC MCHC RDW Plt Count Lymph % (Auto) Piatt % (Auto) Lymph # Seg Neutrophils % Seg Neuts % (Manual) Lymphocytes % (Manual) Monocytes % (Manual) Nucleated RBC % Lymphocytes # (Manual) Monocytes # (Manual) PT INR POC ABG pH POC ABG pCO2 POC ABG pO2 Sodium Potassium Chloride BUN Creatinine Glucose Calcium Direct Bilirubin AST Alkaline Phosphatase Ammonia 88.0 H 134.0 H 106.0 H Total Protein Albumin 09/23/18 09/23/18 09/24/18 09:57 09:57 05:33 RBC MCHC RDW 19.9 H Plt Count Lymph % (Auto) Piatt % (Auto) Lymph # Seg Neutrophils % Seg Neuts % (Manual) Lymphocytes % (Manual) Monocytes % (Manual) Nucleated RBC % Lymphocytes # (Manual) Monocytes # (Manual) PT 17.1 H INR 1.31 H POC ABG pH POC ABG pCO2 POC ABG pO2 Sodium Potassium 3.5 L Chloride BUN Creatinine 0.5 L Glucose 157 H Calcium 8.0 L Direct Bilirubin AST Alkaline Phosphatase Ammonia Total Protein 6.0 L Albumin 3.2 L 09/24/18 09/24/18 09/24/18 05:33 05:33 17:01 RBC MCHC RDW Plt Count Lymph % (Auto) Piatt % (Auto) Lymph # Seg Neutrophils % Seg Neuts % (Manual) Lymphocytes % (Manual) Monocytes % (Manual) Nucleated RBC % Lymphocytes # (Manual) Monocytes # (Manual) PT INR POC ABG pH 7.460 H POC ABG pCO2 31.2 L POC ABG pO2 73 L Sodium Potassium Chloride BUN 6 L Creatinine 0.5 L Glucose 161 H Calcium Direct Bilirubin AST Alkaline Phosphatase Ammonia 77.0 H Total Protein Albumin 09/26/18 09/26/18 09/26/18 06:56 06:56 06:56 RBC MCHC RDW 19.6 H Plt Count 137 L Lymph % (Auto) [place]att % (Auto) Lymph # Seg Neutrophils % Seg Neuts % (Manual) Lymphocytes % (Manual) Monocytes % (Manual) Nucleated RBC % Lymphocytes # (Manual) Monocytes # (Manual) PT INR POC ABG pH POC ABG pCO2 POC ABG pO2 Sodium 136 L Potassium Chloride BUN Creatinine 0.4 L Glucose 130 H Calcium 8.3 L Direct Bilirubin AST 41 H Alkaline Phosphatase 133 H Ammonia 92.0 H Total Protein 5.9 L Albumin 3.1 L 09/27/18 09/27/18 09/29/18 05:43 05:43 08:48 RBC 3.53 L MCHC 35 H RDW 19.3 H Plt Count 122 L Lymph % (Auto) 6.9 L Piatt % (Auto) 9.5 H Lymph # 0.5 L Seg Neutrophils % 82.4 H Seg Neuts % (Manual) Lymphocytes % (Manual) Monocytes % (Manual) Nucleated RBC % Lymphocytes # (Manual) Monocytes # (Manual) PT INR POC ABG pH POC ABG pCO2 POC ABG pO2 Sodium Potassium Chloride BUN Creatinine Glucose Calcium Direct Bilirubin 0.4 H AST Alkaline Phosphatase 169 H Ammonia 65.0 H Total Protein 5.6 L Albumin 2.9 L 09/29/18 09/29/18 10/01/18 08:48 08:48 07:26 RBC 3.50 L MCHC RDW 20.3 H Plt Count 128 L Lymph % (Auto) Piatt % (Auto) Lymph # Seg Neutrophils % Seg Neuts % (Manual) 80.0 H Lymphocytes % (Manual) 7.0 L Monocytes % (Manual) 11.0 H Nucleated RBC % 1.0 H Lymphocytes # (Manual) 0.6 L Monocytes # (Manual) 1.0 H PT INR POC ABG pH POC ABG pCO2 POC ABG pO2 Sodium 133 L Potassium 3.4 L Chloride 97.7 L BUN Creatinine 0.4 L Glucose 147 H Calcium 7.7 L Direct Bilirubin AST Alkaline Phosphatase 185 H Ammonia 72.0 H Total Protein 5.1 L Albumin 2.4 L 10/01/18 07:26 RBC MCHC RDW Plt Count Lymph % (Auto) [place]att % (Auto) Lymph # Seg Neutrophils % Seg Neuts % (Manual) Lymphocytes % (Manual) Monocytes % (Manual) Nucleated RBC % Lymphocytes # (Manual) Monocytes # (Manual) PT INR POC ABG pH POC ABG pCO2 POC ABG pO2 Sodium Potassium Chloride BUN Creatinine Glucose Calcium Direct Bilirubin AST Alkaline Phosphatase Ammonia 82.0 H Total Protein Albumin
[2018-10-02] MEDS: NACL 0.9% IV SCH (11:11)
[2018-10-02] MEDS: DAPTOMYCIN IV SCH (11:11)
[2018-10-02] MEDS: LaMICtal PO SCH ×2 (11:11→21:36)
[2018-10-02] MEDS: INDERAL PO SCH (11:11)
[2018-10-02] MEDS: PREVACID SOLUTAB FEEDTUBE SCH ×2 (11:12→21:35)
[2018-10-02] MEDS: FOLVITE PO SCH (11:12)
[2018-10-02] MEDS: BABY ASPIRIN PO SCH (11:12)
[2018-10-02] MEDS: PROAMATINE PO SCH ×3 (11:12→18:15)
[2018-10-02] MEDS: CEPHULAC PO SCH ×3 (11:12→20:46)
[2018-10-02] MEDS: XIFAXAN PO SCH ×2 (11:13→21:36)
[2018-10-02] MEDS: LASIX PO SCH (11:13)
[2018-10-02] MEDS: ALDACTONE PO SCH (11:13)
[2018-10-02] MEDS: THERAGRAN Tab PO SCH (11:13)
[2018-10-02] MEDS: SODIUM CHLORIDE FLUSH SYRINGE 10 ML IV SCH ×2 (11:14→21:36)
[2018-10-02] MEDS: KEPPRA PO SCH ×2 (11:17→21:35)
[2018-10-02] MEDS: VITAMIN B-1 PO SCH (11:17)
--- NOTE | 2018-10-02 13:35 | Progress Note ---
Assessment and Plan Assessment and plan: Patient is a 62-year-old female with PMHx of CAD, hypertension, COPD, hypothyroidism, dementia, alcohol abuse, liver cirrhosis, h/o hepatic encephalopathy, seizures disorder, and brain aneurysm, brain injury, who was brought to the ER by EMS for complaints of bloody dark red stool in the morning. In the ER, her ammonia level was 88, pt is admitted for further evaluation and treatment. She was refusing PO and mental status and respiratory status continue to decline. Lactulose started with NG tube, blood cx grew MRSA. ID consulted for abx recommendation. Acute hypoxic respiratory failure, likely POA - Possible ARDS from sepsis?? pulmonary edema due to sepsis and hepatic failure ?? - Hypoxic on RA O2 sat, CXR without any infiltrates - CTA chest showed no acute PE, preserved EF on 2d echo - require facemask O2 to maintain sat - nebs scheduled and as needed, consulted pulmonary Bacteremia, MRSA with possible sepsis (encephalopathy, respiratory failure, worsening hepatic function from baseline), likely POA - 1 out of 4 blood culture bottles positive on 09/22/18. Repeat Blood culture on 09/24/18 NGTD - placed on vancomycin then changed to daptomycin - contact isolation, ID consulted, no vegetation on TTE with preserved EF - -Anticipate discharge on Cubicin (daptomycin) 400 mg IV qday total 14 days until , picc line placed Acute GIB (etiology unclear) - Continue to monitor H&H, which is stable so far -etiology-patient has a hx of alcoholic cirrhosis 2/2 former ETOH abuse with varices and HE -GI consulted, no planned for endoscopy if H&H remains stable - Already has outpatient follow-up for EGD/colonoscopy - cont Protonix, IVF for hydration as needed Acute on chronic encephalopathy, present on admission - Likely Hepatic encephalopathy (ammonia trended upto 138) - -abdominal U/S showed advanced cirrhosis and gallstones but no mass or ascites - Continue lactulose, Mental status much improved now with lactulose Hepatic cirrhosis with portal hypertension and esophageal varices - Due to alcohol abuse -GI following, continue to monitor clinically Dysphagia - On mechanical soft diet - Dietary supplementation - DC NG tube Other chronic issues: Hypertension H/o CAD H/o alcohol abuse H/o seizures disorder H/o brain aneurysm Hypothyroidism H/o dementia, alcohol induced - cont home meds, supportive care, hold plavix - No heparin for DVT prophylasix due to bleeding, placed on SCD Disposition: SNF placement pending. Discussed with personal home care and said will not the patient now. History Interval history: Patient was seen and evaluated this morning, patient was alert and cooperative but is demented. Hospitalist Physical - Physical exam Narrative exam: Patient is on facemask The patient appeared well nourished and normally developed. Vital signs as documented. Head exam is unremarkable. No scleral icterus . Neck is without jugular venous distension, thyromegaly, or carotid bruits. Lungs are clear to auscultation. Cardiac exam reveals regular rate and Rhythm. Abdominal exam reveals normal bowel sounds. Extremities are nonedematous and both femoral and pedal pulses are normal. SENIOR PRODUCT DEVELOPMENT ENGINEER: Alert and oriented 3. No focal weakness. - Constitutional Vitals: Temp Pulse Resp BP Pulse Ox 98.9 F 78 18 102/62 94 10/02/18 05:49 10/02/18 12:23 10/02/18 07:37 10/02/18 05:49 10/02/18 12:23 General appearance: Present: no acute distress Results - Labs CBC & Chem 7: 09/29/18 08:48 10/01/18 07:26 Labs: Laboratory Last Values WBC 9.0 K/mm3 (4.5-11.0) 09/29/18 08:48 RBC 3.50 M/mm3 (3.65-5.03) L 09/29/18 08:48 Hgb 10.4 gm/dl (10.1-14.3) 09/29/18 08:48 Hgb 10.4 gm/dl (10.1-14.3) 09/29/18 08:48 Hct 31.0 % (30.3-42.9) 09/29/18 08:48 Hct 31.0 % (30.3-42.9) 09/29/18 08:48 MCV 88 fl (79-97) 09/29/18 08:48 MCH 30 pg (28-32) 09/29/18 08:48 MCHC 34 % (30-34) 09/29/18 08:48 RDW 20.3 % (13.2-15.2) H 09/29/18 08:48 Plt Count 128 K/mm3 (140-440) L 09/29/18 08:48 Lymph % (Auto) 6.9 % (13.4-35.0) L 09/27/18 05:43 [place] % (Auto) Supervisor Partial Denture Department 09/29/18 08:48 Eos % (Auto) 0.8 % (0.0-4.3) 09/27/18 05:43 Baso % (Auto) 0.4 % (0.0-1.8) 09/27/18 05:43 Lymph # 0.5 K/mm3 (1.2-5.4) L 09/27/18 05:43 [place] # 0.6 K/mm3 (0.0-0.8) 09/27/18 05:43 Eos # 0.1 K/mm3 (0.0-0.4) 09/27/18 05:43 Baso # 0.0 K/mm3 (0.0-0.1) 09/27/18 05:43 Add Manual Diff Complete 09/29/18 08:48 Total Counted 100 09/29/18 08:48 Seg Neutrophils % 82.4 % (40.0-70.0) H 09/27/18 05:43 Seg Neuts % (Manual) 80.0 % (40.0-70.0) H 09/29/18 08:48 0 % 09/29/18 08:48 7.0 % (13.4-35.0) L 09/29/18 08:48 Reactive Lymphs % (Man) 0 % 09/29/18 08:48 11.0 % (0.0-7.3) H 09/29/18 08:48 2.0 % (0.0-4.3) 09/29/18 08:48 0 % (0.0-1.8) 09/29/18 08:48 0 % 09/29/18 08:48 0 % 09/29/18 08:48 0 % 09/29/18 08:48 0 % 09/29/18 08:48 Nucleated RBC % 1.0 % (0.0-0.9) H 09/29/18 08:48 Seg Neutrophils # 5.6 K/mm3 (1.8-7.7) 09/27/18 05:43 Seg Neutrophils # Man 7.2 K/mm3 (1.8-7.7) 09/29/18 08:48 Band Neutrophils # 0.0 K/mm3 09/29/18 08:48 0.6 K/mm3 (1.2-5.4) L 09/29/18 08:48 Abs React Lymphs (Man) 0.0 K/mm3 09/29/18 08:48 1.0 K/mm3 (0.0-0.8) H 09/29/18 08:48 0.2 K/mm3 (0.0-0.4) 09/29/18 08:48 0.0 K/mm3 (0.0-0.1) 09/29/18 08:48 0.0 K/mm3 09/29/18 08:48 0.0 K/mm3 09/29/18 08:48 0.0 K/mm3 09/29/18 08:48 Blast Cells # 0.0 K/mm3 09/29/18 08:48 WBC Morphology Not Reportable 09/29/18 08:48 Hypersegmented Neuts Not Reportable 09/29/18 08:48 Hyposegmented Neuts Not Reportable 09/29/18 08:48 Hypogranular Neuts Not Reportable 09/29/18 08:48 Not Reportable 09/29/18 08:48 Not Reportable 09/29/18 08:48 Not Reportable 09/29/18 08:48 Not Reportable 09/29/18 08:48 Not Reportable 09/29/18 08:48 Not Reportable 09/29/18 08:48 Consistent w auto 09/29/18 08:48 Not Reportable 09/29/18 08:48 Plt Clumps, EDTA Not Reportable 09/29/18 08:48 Not Reportable 09/29/18 08:48 Not Reportable 09/29/18 08:48 Not Reportable 09/29/18 08:48 Plt Morphology Comment Not Reportable 09/29/18 08:48 RBC Morphology Not Reportable 09/29/18 08:48 Dimorphic RBCs Not Reportable 09/29/18 08:48 Not Reportable 09/29/18 08:48 Not Reportable 09/29/18 08:48 1+ 09/29/18 08:48 1+ 09/29/18 08:48 Not Reportable 09/29/18 08:48 Not Reportable 09/29/18 08:48 Not Reportable 09/29/18 08:48 Not Reportable 09/29/18 08:48 Not Reportable 09/29/18 08:48 Not Reportable 09/29/18 08:48 Not Reportable 09/29/18 08:48 Few 09/29/18 08:48 Not Reportable 09/29/18 08:48 Not Reportable 09/29/18 08:48 Not Reportable 09/29/18 08:48 Not Reportable 09/29/18 08:48 Not Reportable 09/29/18 08:48 Not Reportable 09/29/18 08:48 Few 09/29/18 08:48 Acanthocytes (Spur) Not Reportable 09/29/18 08:48 Rouleaux Not Reportable 09/29/18 08:48 Not Reportable 09/29/18 08:48 Not Reportable 09/29/18 08:48 Not Reportable 09/29/18 08:48 Not Reportable 09/29/18 08:48 Hem Pathologist Commnt No 09/29/18 08:48 PT 17.1 Sec. (12.2-14.9) H 09/24/18 05:33 INR 1.31 (0.87-1.13) H 09/24/18 05:33 APTT 30.5 Sec. (24.2-36.6) 09/20/18 17:54 POC ABG pH 7.460 (7.35-7.45) H 09/24/18 17:01 POC ABG pCO2 31.2 (35-45) L 09/24/18 17:01 POC ABG pO2 73 (80-105) L 09/24/18 17:01 POC ABG HCO3 22.1 (22-26 mml/L) 09/24/18 17:01 POC ABG Total CO2 23 (23-27mmol/L) 09/24/18 17:01 POC ABG O2 Sat 95 09/24/18 17:01 POC ABG Base Excess -2 ((-2) - (+3)mmol/L) 09/24/18 17:01 50 % 09/24/18 17:01 Sodium 133 mmol/L (137-145) L 10/01/18 07:26 Potassium 3.4 mmol/L (3.6-5.0) L 10/01/18 07:26 Chloride 97.7 mmol/L (98-107) L 10/01/18 07:26 Carbon Dioxide 24 mmol/L (22-30) 10/01/18 07:26 15 mmol/L 10/01/18 07:26 BUN 9 mg/dL (7-17) 10/01/18 07:26 0.4 mg/dL (0.7-1.2) L 10/01/18 07:26 Estimated GFR > 60 ml/min 10/01/18 07:26 23 % 10/01/18 07:26 Glucose 147 mg/dL (65-100) H 10/01/18 07:26 POC Glucose 137 (70-105) H 10/02/18 12:29 Calcium 7.7 mg/dL (8.4-10.2) L 10/01/18 07:26 0.90 mg/dL (0.1-1.2) 10/01/18 07:26 0.4 mg/dL (0-0.2) H 09/29/18 08:48 0.5 mg/dL 09/29/18 08:48 AST 38 units/L (5-40) 10/01/18 07:26 ALT 27 units/L (7-56) 10/01/18 07:26 185 units/L (35-129) H 10/01/18 07:26 82.0 umol/L (25-60) H 10/01/18 07:26 87 units/L (30-135) 09/26/18 06:56 5.1 g/dL (6.3-8.2) L 10/01/18 07:26 2.4 g/dL (3.9-5) L 10/01/18 07:26 0.9 % 10/01/18 07:26 Yellow (Yellow) 09/22/18 17:20 Clear (Clear) 09/22/18 17:20 6.0 (5.0-7.0) 09/22/18 17:20 Ur Specific [place] 1.011 (1.003-1.030) 09/22/18 17:20 <15 mg/dl mg/dL (Negative) 09/22/18 17:20 Neg mg/dL (Negative) 09/22/18 17:20 Neg mg/dL (Negative) 09/22/18 17:20 Mod (Negative) 09/22/18 17:20 Pos (Negative) 09/22/18 17:20 Neg (Negative) 09/22/18 17:20 < 2.0 mg/dL (<2.0) 09/22/18 17:20 Ur Leukocyte Esterase Tr (Negative) 09/22/18 17:20 1.0 /HPF (0.0-6.0) 09/22/18 17:20 < 1.0 /HPF (0.0-6.0) 09/22/18 17:20 Few /HPF 09/22/18 17:20 Blood Type B POSITIVE 09/20/18 17:46 Antibody Screen Negative 09/20/18 17:46 Active Medications - Current Medications Current Medications: Generic Name Dose Route Start Last Admin Trade Name Freq PRN Reason Stop Dose Admin Acetaminophen 650 mg 09/20/18 19:37 09/26/18 21:05 Tylenol PO 650 mg Q4H PRN Administration Pain MILD(1-3)/Fever >100.5/PÉREZ Albuterol 2.5 mg 09/21/18 07:40 Proventil IH Q4HRT PRN Shortness Of Breath Albuterol/Ipratropium 1 ampul 09/21/18 20:00 10/02/18 07:28 Duoneb *Not For Prn Use* IH 1 ampul BIDRT HUONG Administration Lipase/Protease/Amylase 1 each 09/22/18 11:24 Pancreaze 10,500 Unit FEEDTUBE PRN PRN For Clogged Feeding Tube Aspirin 81 mg 09/21/18 10:00 10/02/18 11:12 Baby Aspirin PO 81 mg DAILY HUONG Administration Fluticasone Propionate 50 mcg 09/24/18 10:00 10/01/18 10:58 Flonase NS 50 mcg QDAY HUONG Administration Folic Acid 1 mg 09/21/18 10:00 10/02/18 11:12 Folvite PO 1 mg QDAY HUONG Administration Furosemide 20 mg 09/21/18 10:00 10/02/18 11:13 Lasix PO 20 mg QDAY HUONG Administration Daptomycin 366 mg/ Sodium 100 mls @ 200 mls/hr 09/26/18 11:00 10/02/18 11:11 Chloride IV 10/07/18 11:29 200 mls/hr Q24H HUONG Administration Protocol Cefepime HCl 2 gm in 100 mls @ 200 mls/hr 09/30/18 17:00 10/02/18 06:11 Maxipime/Ns 2 Gm/100 Ml IV 200 mls/hr Q12HR@0600,1800 HUONG Administration Protocol Metronidazole 500 mg in 100 mls @ 100 mls/hr 09/30/18 15:00 10/02/18 06:07 Flagyl 500 Mg/100 Ml IV 100 mls/hr Q8HR HUONG Administration Protocol Lactulose 30 gm 09/21/18 08:00 10/02/18 11:12 Cephulac PO 30 gm TID HUONG Administration Lamotrigine 25 mg 09/21/18 18:00 10/02/18 11:11 Lamictal PO 25 mg BID HUONG Administration Lansoprazole 30 mg 09/27/18 22:00 10/02/18 11:12 Prevacid Solutab FEEDTUBE 30 mg BID HUONG Administration Levetiracetam 1,500 mg 09/28/18 10:00 10/02/18 11:17 Keppra PO 1,500 mg BID HUONG Administration Levothyroxine Sodium 75 mcg 09/22/18 06:00 10/02/18 06:07 Synthroid PO 75 mcg DAILY@0600 HUONG Administration Midodrine 5 mg 09/21/18 16:00 10/02/18 11:12 Proamatine PO 5 mg TID@0800,1200,1600 HUONG Administration Morphine Sulfate 2 mg 09/20/18 19:37 Morphine IV Q4H PRN Pain, Moderate (4-6) Multivitamins 1 each 09/24/18 10:00 10/02/18 11:13 Theragran Tab PO 1 each DAILY HUONG Administration Ondansetron HCl 4 mg 09/20/18 19:37 Zofran IV Q8H PRN Nausea And Vomiting Propranolol HCl 40 mg 09/23/18 15:00 10/02/18 11:11 Inderal PO 40 mg QDAY HUONG Administration Rifaximin 550 mg 09/21/18 22:00 10/02/18 11:13 Xifaxan PO 550 mg BID HUONG Administration Simple Syrup 15 ml 09/22/18 11:24 Simple Syrup FEEDTUBE PRN PRN Hypoglycemia Simple Syrup 30 ml 09/22/18 11:24 Simple Syrup FEEDTUBE PRN PRN Hypoglycemia Sodium Bicarbonate 325 mg 09/22/18 12:49 Sodium Bicarbonate FEEDTUBE PRN PRN For Clogged Feeding Tube Sodium Chloride 10 ml 09/20/18 22:00 10/02/18 11:14 Sodium Chloride Flush Syringe 10 Ml IV 10 ml BID HUONG Administration Spironolactone 50 mg 09/22/18 10:00 10/02/18 11:13 Aldactone PO 50 mg QDAY HUONG Administration Thiamine HCl 100 mg 09/22/18 10:00 10/02/18 11:17 Vitamin B-1 PO 100 mg QDAY HUONG Administration Trazodone HCl 50 mg 09/21/18 15:02 09/21/18 20:54 Desyrel PO 50 mg QHS PRN Administration Sleep Nutrition/Malnutrition Assess - Dietary Evaluation Nutrition/Malnutrition Findings: Nutrition Notes Start: 09/21/18 10:31 Freq: Status: Active Protocol: Document 09/28/18 17:23 RM (Rec: 09/28/18 17:27 RM [id number]) Nutrition Notes Initial or Follow up Reassessment Current Diagnosis Hypertension Other Pertinent Diagnosis Acute GIB, ETOH abuse, liver cirrhosis, dementia, hypothyroidism Current Diet GI soft Labs/Tests Reviewed Pertinent Medications Lasix Height 5 ft 4 in Weight 60.2 kg [place] Body Weight (kg) 54.54 BMI 22.8 Subjective/Other Information Per nurse pt ate 40% of her meals today. Percent of energy/protein needs met: 59%/69% Burn Absent Trauma Absent #2 Nutrition Diagnosis Inadequate oral intake As Evidenced by Signs and Symptoms pt nurse statement that pt ate 40% of her meals today Diagnosis Progress(for reassessment Improved documentation) Is patient on ventilator? No Is Patient Ambulatory and/or Out of Bed No REE-([place]-St. Jeor-confined to bed) [phone] Calculation Used for Recommendations [place]-St Jeor Additional Notes Pro needs 0.8-1g/k-59g/ day Fluid needs per MD. Nutrition Intervention Change Diet Order: Continue curent Add Supplement/Snack (indicate name/kcal Ensure Enlive 1 daily /protein ) Provides kCal: 350 Provides Protein (gm) 20 Goal #1 Meet at least 75% of energy and protein needs Anticipated Discharge Needs: Unable to determine at this time Follow-Up By: 10/05/18 Additional Comments Follow for PO and ONS intakes
[2018-10-02] MEDS: TYLENOL PO PRN (16:04)
[2018-10-03] MEDS: MAXIPIME/NS 2 GM/100 ML 2 GM/100 ML BAG IV SCH ×2 (05:41→17:51)
[2018-10-03] MEDS: SYNTHROID PO SCH (05:48)
[2018-10-03 06:20] LABS: Alanine Aminotransferase 23 units/L (7-56); Albumin 2.7 g/dL (3.9-5); BUN/Creatinine Ratio 35; Blood Urea Nitrogen 14 mg/dL (7-17); Calcium 8.9 mg/dL (8.4-10.2); Hemolysis Index 0
[2018-10-03] MEDS: FLAGYL 500 MG/100 ML 500 MG/100 ML BAG IV SCH ×3 (06:26→21:38)
--- NOTE | 2018-10-03 06:55 | Progress Note ---
Assessment and Plan 62-year-old female with PMH of CAD, hypertension, COPD, hypothyroidism, dementia, alcohol abuse, liver cirrhosis, hepatic encephalopathy, seizures disorder, brain aneurysm, brain injury, who was brought to the ER by EMS on 09/20/18 with complaints of dark red bloody stool per rectum and increased lethargy over the last few days. Acute hypoxic respiratory failure, likely POA. CXR and CT chest no infiltrates on admission, now has LLL infiltrate, probable aspiration MRSA bacteremia. 1 out of 4 blood culture bottles positive on 09/22/18. Repeat Blood culture on 09/24/18 NGTD. Acute hepatic encephalopathy. ETOH liver cirrhosis with portal hypertension and esophageal varices. Acute GIB. H/O Alcohol abuse, dementia alcohol induced, brain aneurysm. Thrombocytopenia Pyrexia, isolated -Wean supplemental oxygenfor O2 sats >90% -Antibiotics per ID -Modified diet per ACCOUNTING METHODS ANALYST with aspiration precautions -VTE prophylaxis-SCDs -PT/OT to increase mobility -Continue medical management of hepatic encephalopathy -Supportive transfusions as indicated -Continue to monitor H and H and hemodynamics -Incentive spirometry, left lower lobe infiltrate is possible atelectasis -Follow up CXR in am -Bronchodilators per protocol Continue all current therapy and all supportive care Discussed with RN at the bedside Updated the patient re care plan Subjective Date of service: 10/03/18 Principal diagnosis: rectal bleeding, cirrhosis Interval history: Patient is seen today for: acute hypoxic respiratory failure: acute metabolic encephalopathy, GI bleed, LLL infiltrate Seen and examined at bedside; 24-hour events reviewed; nursing and respiratory care staff consulted; no adverse overnight events reported to me; Resting peacefully in bed. Denies any chest pain, no shortness of breath.No nausea or vomiting, no abdominal pain Remains on a Venturi mask, instructed on incentive spirometry at the bedside Awake, alert and appropriate in her responses Objective Vital Signs - 12hr 10/02/18 10/02/18 10/02/18 20:57 20:58 21:13 Temperature Pulse Rate Pulse Rate [ 62 65 Anterior Bilateral Throughout] Respiratory Rate Respiratory 20 20 Rate [Anterior Bilateral Throughout] Blood Pressure O2 Sat by Pulse 95 Oximetry 10/02/18 10/02/18 10/03/18 22:00 22:39 04:15 Temperature 97.8 F 97.4 F L Pulse Rate 66 62 Pulse Rate [ Anterior Bilateral Throughout] Respiratory 20 20 20 Rate Respiratory Rate [Anterior Bilateral Throughout] Blood Pressure 96/51 96/56 O2 Sat by Pulse 92 100 Oximetry Constitutional: no acute distress, alert Eyes: non-icteric ENT: oropharynx dry Neck: supple, no lymphadenopathy Effort: normal Ascultation: Bilateral: diminished breath sounds Cardiovascular: regular rate and rhythm, other (S1,S2) Gastrointestinal: normoactive bowel sounds, soft, non-tender Integumentary: normal, rash Extremities: no cyanosis, no edema, pulses normal, other (Digital clubbing) Neurologic: normal mental status, non-focal exam, pupils equal and round, motor strength normal and Psychiatric: mood appropriate, affect normal CBC and BMP: 09/29/18 08:48 10/03/18 05:40 ABG, PT/INR, D-dimer: ABG POC ABG pH 7.460 (7.35-7.45) H 09/24/18 17:01 POC ABG pCO2 31.2 (35-45) L 09/24/18 17:01 POC ABG pO2 73 (80-105) L 09/24/18 17:01 POC ABG HCO3 22.1 (22-26 mml/L) 09/24/18 17:01 POC ABG Total CO2 23 (23-27mmol/L) 09/24/18 17:01 POC ABG O2 Sat 95 09/24/18 17:01 PT/INR, D-dimer PT 17.1 Sec. (12.2-14.9) H 09/24/18 05:33 INR 1.31 (0.87-1.13) H 09/24/18 05:33 Abnormal lab findings: Abnormal Labs 09/20/18 09/20/18 09/20/18 17:46 17:46 17:54 RBC MCHC RDW 19.8 H Plt Count Lymph % (Auto) [place] % (Auto) Lymph # Seg Neutrophils % Seg Neuts % (Manual) Lymphocytes % (Manual) Monocytes % (Manual) Nucleated RBC % Lymphocytes # (Manual) Monocytes # (Manual) PT 17.5 H INR 1.35 H POC ABG pH POC ABG pCO2 POC ABG pO2 Sodium Potassium Chloride BUN Creatinine 0.6 L Glucose POC Glucose Calcium Direct Bilirubin AST Alkaline Phosphatase Ammonia Total Protein Albumin 3.7 L 09/20/18 09/22/18 09/23/18 17:55 12:16 07:01 RBC MCHC RDW Plt Count Lymph % (Auto) [place] % (Auto) Lymph # Seg Neutrophils % Seg Neuts % (Manual) Lymphocytes % (Manual) Monocytes % (Manual) Nucleated RBC % Lymphocytes # (Manual) Monocytes # (Manual) PT INR POC ABG pH POC ABG pCO2 POC ABG pO2 Sodium Potassium Chloride BUN Creatinine Glucose POC Glucose Calcium Direct Bilirubin AST Alkaline Phosphatase Ammonia 88.0 H 134.0 H 106.0 H Total Protein Albumin 09/23/18 09/23/18 09/24/18 09:57 09:57 05:33 RBC MCHC RDW 19.9 H Plt Count Lymph % (Auto) [place] % (Auto) Lymph # Seg Neutrophils % Seg Neuts % (Manual) Lymphocytes % (Manual) Monocytes % (Manual) Nucleated RBC % Lymphocytes # (Manual) Monocytes # (Manual) PT 17.1 H INR 1.31 H POC ABG pH POC ABG pCO2 POC ABG pO2 Sodium Potassium 3.5 L Chloride BUN Creatinine 0.5 L Glucose 157 H POC Glucose Calcium 8.0 L Direct Bilirubin AST Alkaline Phosphatase Ammonia Total Protein 6.0 L Albumin 3.2 L 09/24/18 09/24/18 09/24/18 05:33 05:33 17:01 RBC MCHC RDW Plt Count Lymph % (Auto) [place] % (Auto) Lymph # Seg Neutrophils % Seg Neuts % (Manual) Lymphocytes % (Manual) Monocytes % (Manual) Nucleated RBC % Lymphocytes # (Manual) Monocytes # (Manual) PT INR POC ABG pH 7.460 H POC ABG pCO2 31.2 L POC ABG pO2 73 L Sodium Potassium Chloride BUN 6 L Creatinine 0.5 L Glucose 161 H POC Glucose Calcium Direct Bilirubin AST Alkaline Phosphatase Ammonia 77.0 H Total Protein Albumin 09/26/18 09/26/18 09/26/18 06:56 06:56 06:56 RBC MCHC RDW 19.6 H Plt Count 137 L Lymph % (Auto) [place] % (Auto) Lymph # Seg Neutrophils % Seg Neuts % (Manual) Lymphocytes % (Manual) Monocytes % (Manual) Nucleated RBC % Lymphocytes # (Manual) Monocytes # (Manual) PT INR POC ABG pH POC ABG pCO2 POC ABG pO2 Sodium 136 L Potassium Chloride BUN Creatinine 0.4 L Glucose 130 H POC Glucose Calcium 8.3 L Direct Bilirubin AST 41 H Alkaline Phosphatase 133 H Ammonia 92.0 H Total Protein 5.9 L Albumin 3.1 L 09/27/18 09/27/18 09/29/18 05:43 05:43 08:48 RBC 3.53 L MCHC 35 H RDW 19.3 H Plt Count 122 L Lymph % (Auto) 6.9 L [place] % (Auto) 9.5 H Lymph # 0.5 L Seg Neutrophils % 82.4 H Seg Neuts % (Manual) Lymphocytes % (Manual) Monocytes % (Manual) Nucleated RBC % Lymphocytes # (Manual) Monocytes # (Manual) PT INR POC ABG pH POC ABG pCO2 POC ABG pO2 Sodium Potassium Chloride BUN Creatinine Glucose POC Glucose Calcium Direct Bilirubin 0.4 H AST Alkaline Phosphatase 169 H Ammonia 65.0 H Total Protein 5.6 L Albumin 2.9 L 09/29/18 09/29/18 10/01/18 08:48 08:48 07:26 RBC 3.50 L MCHC RDW 20.3 H Plt Count 128 L Lymph % (Auto) [place] % (Auto) Lymph # Seg Neutrophils % Seg Neuts % (Manual) 80.0 H Lymphocytes % (Manual) 7.0 L Monocytes % (Manual) 11.0 H Nucleated RBC % 1.0 H Lymphocytes # (Manual) 0.6 L Monocytes # (Manual) 1.0 H PT INR POC ABG pH POC ABG pCO2 POC ABG pO2 Sodium 133 L Potassium 3.4 L Chloride 97.7 L BUN Creatinine 0.4 L Glucose 147 H POC Glucose Calcium 7.7 L Direct Bilirubin AST Alkaline Phosphatase 185 H Ammonia 72.0 H Total Protein 5.1 L Albumin 2.4 L 10/01/18 10/02/18 10/02/18 07:26 12:29 17:03 RBC MCHC RDW Plt Count Lymph % (Auto) [place] % (Auto) Lymph # Seg Neutrophils % Seg Neuts % (Manual) Lymphocytes % (Manual) Monocytes % (Manual) Nucleated RBC % Lymphocytes # (Manual) Monocytes # (Manual) PT INR POC ABG pH POC ABG pCO2 POC ABG pO2 Sodium Potassium Chloride BUN Creatinine Glucose POC Glucose 137 H 130 H Calcium Direct Bilirubin AST Alkaline Phosphatase Ammonia 82.0 H Total Protein Albumin 10/03/18 05:40 RBC MCHC RDW Plt Count Lymph % (Auto) [place] % (Auto) Lymph # Seg Neutrophils % Seg Neuts % (Manual) Lymphocytes % (Manual) Monocytes % (Manual) Nucleated RBC % Lymphocytes # (Manual) Monocytes # (Manual) PT INR POC ABG pH POC ABG pCO2 POC ABG pO2 Sodium Potassium Chloride 109.7 H BUN Creatinine 0.4 L Glucose 110 H POC Glucose Calcium Direct Bilirubin AST Alkaline Phosphatase 191 H Ammonia Total Protein 5.7 L Albumin 2.7 L Allied health notes reviewed: nursing
[2018-10-03] MEDS: DUONEB *Not for PRN Use IH SCH ×2 (08:16→20:25)
[2018-10-03] MEDS: CEPHULAC PO SCH ×3 (10:21→20:22)
[2018-10-03] MEDS: KEPPRA PO SCH ×2 (10:21→21:43)
[2018-10-03] MEDS: PREVACID SOLUTAB FEEDTUBE SCH ×2 (10:22→21:42)
[2018-10-03] MEDS: BABY ASPIRIN PO SCH (10:22)
[2018-10-03] MEDS: XIFAXAN PO SCH ×2 (10:22→21:42)
[2018-10-03] MEDS: LaMICtal PO SCH ×2 (10:23→21:42)
[2018-10-03] MEDS: ALDACTONE PO SCH (10:23)
[2018-10-03] MEDS: FOLVITE PO SCH (10:23)
[2018-10-03] MEDS: INDERAL PO SCH (10:24)
[2018-10-03] MEDS: VITAMIN B-1 PO SCH (10:26)
[2018-10-03] MEDS: SODIUM CHLORIDE FLUSH SYRINGE 10 ML IV SCH ×2 (10:30→22:42)
[2018-10-03] MEDS: LASIX PO SCH (10:31)
[2018-10-03] MEDS: PROAMATINE PO SCH ×3 (10:38→16:31)
[2018-10-03] MEDS: THERAGRAN Tab PO SCH (10:39)
[2018-10-03] MEDS: DAPTOMYCIN IV SCH (12:34)
[2018-10-03] MEDS: FLONASE NS SCH ×3 (12:34→12:39)
[2018-10-03] MEDS: NACL 0.9% IV SCH (12:34)
--- NOTE | 2018-10-03 12:55 | Progress Note ---
Assessment and Plan Assessment and plan: Patient is a 62-year-old female with PMHx of CAD, hypertension, COPD, hypothyroidism, dementia, alcohol abuse, liver cirrhosis, h/o hepatic encephalopathy, seizures disorder, and brain aneurysm, brain injury, who was brought to the ER by EMS for complaints of bloody dark red stool in the morning. In the ER, her ammonia level was 88, pt is admitted for further evaluation and treatment. She was refusing PO and mental status and respiratory status continue to decline. Lactulose started with NG tube, blood cx grew MRSA. ID consulted for abx recommendation. Acute hypoxic respiratory failure, likely POA - Possible ARDS from sepsis?? pulmonary edema due to sepsis and hepatic failure ?? 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 ETOH abuse with varices and HE -GI consulted, no planned for endoscopy if H&H remains stable - Already has outpatient follow-up for EGD/colonoscopy - cont Protonix Acute on chronic heaptic encephalopathy, present on admission - -abdominal U/S showed advanced cirrhosis and gallstones but no mass or ascites - Continue lactulose, Mental status much improved now with lactulose Hepatic cirrhosis with portal hypertension and esophageal varices - Due to alcohol abuse -GI following, continue to monitor clinically Dysphagia - On mechanical soft diet, ST consult Primary cytopenia; due to hypersplenism Other chronic issues: Hypertension H/o CAD H/o alcohol abuse H/o seizures disorder H/o brain aneurysm Hypothyroidism H/o dementia, alcohol induced - cont home meds, supportive care, hold plavix - No heparin for DVT prophylasix due to bleeding, placed on SCD Disposition: SNF placement pending for Thursday History Interval history: Review of systems Constitutional: No fevers, no malaise, no joint pains CVS: No chest pain, no orthopnea, no pedal edema GI: No abdominal pain, no diarrhea, no vomiting, no constipation Respiratory: No shortness of breath, no wheezing, no coughing Hospitalist Physical - Physical exam Narrative exam: General.: Appears chronically ill, no distress, nontoxic, cachectic HEENT: Moist mucous membranes, extraocular muscles intact, no lymphadenopathy Neck: supple Cardiac: S1-S2 heard Lungs: Diminished air entry Abdomen: soft , nontender, nondistended, bowel sounds positive Extremities: no edema clubbing or cyanosis Skin: no rash or lesions Neurologic: no gross focal deficits Psych: calm, and cooperative - Constitutional Vitals: Temp Pulse Resp BP Pulse Ox 97.4 F L 78 18 105/64 94 10/03/18 04:15 10/03/18 10:40 10/03/18 08:50 10/03/18 10:40 10/03/18 08:23 General appearance: Present: no acute distress Results - Labs CBC & Chem 7: 09/29/18 08:48 10/03/18 05:40 Labs: Laboratory Last Values WBC 9.0 K/mm3 (4.5-11.0) 09/29/18 08:48 RBC 3.50 M/mm3 (3.65-5.03) L 09/29/18 08:48 Hgb 10.4 gm/dl (10.1-14.3) 09/29/18 08:48 Hgb 10.4 gm/dl (10.1-14.3) 09/29/18 08:48 Hct 31.0 % (30.3-42.9) 09/29/18 08:48 Hct 31.0 % (30.3-42.9) 09/29/18 08:48 MCV 88 fl (79-97) 09/29/18 08:48 MCH 30 pg (28-32) 09/29/18 08:48 MCHC 34 % (30-34) 09/29/18 08:48 RDW 20.3 % (13.2-15.2) H 09/29/18 08:48 Plt Count 128 K/mm3 (140-440) L 09/29/18 08:48 Lymph % (Auto) 6.9 % (13.4-35.0) L 09/27/18 05:43 [place] % (Auto) Mud Jack Nozzleman 09/29/18 08:48 Eos % (Auto) 0.8 % (0.0-4.3) 09/27/18 05:43 Baso % (Auto) 0.4 % (0.0-1.8) 09/27/18 05:43 Lymph # 0.5 K/mm3 (1.2-5.4) L 09/27/18 05:43 [place] # 0.6 K/mm3 (0.0-0.8) 09/27/18 05:43 Eos # 0.1 K/mm3 (0.0-0.4) 09/27/18 05:43 Baso # 0.0 K/mm3 (0.0-0.1) 09/27/18 05:43 Add Manual Diff Complete 09/29/18 08:48 Total Counted 100 09/29/18 08:48 Seg Neutrophils % 82.4 % (40.0-70.0) H 09/27/18 05:43 Seg Neuts % (Manual) 80.0 % (40.0-70.0) H 09/29/18 08:48 0 % 09/29/18 08:48 7.0 % (13.4-35.0) L 09/29/18 08:48 Reactive Lymphs % (Man) 0 % 09/29/18 08:48 11.0 % (0.0-7.3) H 09/29/18 08:48 2.0 % (0.0-4.3) 09/29/18 08:48 0 % (0.0-1.8) 09/29/18 08:48 0 % 09/29/18 08:48 0 % 09/29/18 08:48 0 % 09/29/18 08:48 0 % 09/29/18 08:48 Nucleated RBC % 1.0 % (0.0-0.9) H 09/29/18 08:48 Seg Neutrophils # 5.6 K/mm3 (1.8-7.7) 09/27/18 05:43 Seg Neutrophils # Man 7.2 K/mm3 (1.8-7.7) 09/29/18 08:48 Band Neutrophils # 0.0 K/mm3 09/29/18 08:48 0.6 K/mm3 (1.2-5.4) L 09/29/18 08:48 Abs React Lymphs (Man) 0.0 K/mm3 09/29/18 08:48 1.0 K/mm3 (0.0-0.8) H 09/29/18 08:48 0.2 K/mm3 (0.0-0.4) 09/29/18 08:48 0.0 K/mm3 (0.0-0.1) 09/29/18 08:48 0.0 K/mm3 09/29/18 08:48 0.0 K/mm3 09/29/18 08:48 0.0 K/mm3 09/29/18 08:48 Blast Cells # 0.0 K/mm3 09/29/18 08:48 WBC Morphology Not Reportable 09/29/18 08:48 Hypersegmented Neuts Not Reportable 09/29/18 08:48 Hyposegmented Neuts Not Reportable 09/29/18 08:48 Hypogranular Neuts Not Reportable 09/29/18 08:48 Not Reportable 09/29/18 08:48 Not Reportable 09/29/18 08:48 Not Reportable 09/29/18 08:48 Not Reportable 09/29/18 08:48 Not Reportable 09/29/18 08:48 Not Reportable 09/29/18 08:48 Consistent w auto 09/29/18 08:48 Not Reportable 09/29/18 08:48 Plt Clumps, EDTA Not Reportable 09/29/18 08:48 Not Reportable 09/29/18 08:48 Not Reportable 09/29/18 08:48 Not Reportable 09/29/18 08:48 Plt Morphology Comment Not Reportable 09/29/18 08:48 RBC Morphology Not Reportable 09/29/18 08:48 Dimorphic RBCs Not Reportable 09/29/18 08:48 Not Reportable 09/29/18 08:48 Not Reportable 09/29/18 08:48 1+ 09/29/18 08:48 1+ 09/29/18 08:48 Not Reportable 09/29/18 08:48 Not Reportable 09/29/18 08:48 Not Reportable 09/29/18 08:48 Not Reportable 09/29/18 08:48 Not Reportable 09/29/18 08:48 Not Reportable 09/29/18 08:48 Not Reportable 09/29/18 08:48 Few 09/29/18 08:48 Not Reportable 09/29/18 08:48 Not Reportable 09/29/18 08:48 Not Reportable 09/29/18 08:48 Not Reportable 09/29/18 08:48 Not Reportable 09/29/18 08:48 Not Reportable 09/29/18 08:48 Few 09/29/18 08:48 Acanthocytes (Spur) Not Reportable 09/29/18 08:48 Rouleaux Not Reportable 09/29/18 08:48 Not Reportable 09/29/18 08:48 Not Reportable 09/29/18 08:48 Not Reportable 09/29/18 08:48 Not Reportable 09/29/18 08:48 Hem Pathologist Commnt No 09/29/18 08:48 PT 17.1 Sec. (12.2-14.9) H 09/24/18 05:33 INR 1.31 (0.87-1.13) H 09/24/18 05:33 APTT 30.5 Sec. (24.2-36.6) 09/20/18 17:54 POC ABG pH 7.460 (7.35-7.45) H 09/24/18 17:01 POC ABG pCO2 31.2 (35-45) L 09/24/18 17:01 POC ABG pO2 73 (80-105) L 09/24/18 17:01 POC ABG HCO3 22.1 (22-26 mml/L) 09/24/18 17:01 POC ABG Total CO2 23 (23-27mmol/L) 09/24/18 17:01 POC ABG O2 Sat 95 09/24/18 17:01 POC ABG Base Excess -2 ((-2) - (+3)mmol/L) 09/24/18 17:01 50 % 09/24/18 17:01 Sodium 145 mmol/L (137-145) D 10/03/18 05:40 Potassium 3.6 mmol/L (3.6-5.0) 10/03/18 05:40 Chloride 109.7 mmol/L (98-107) H 10/03/18 05:40 Carbon Dioxide 25 mmol/L (22-30) 10/03/18 05:40 14 mmol/L 10/03/18 05:40 BUN 14 mg/dL (7-17) 10/03/18 05:40 0.4 mg/dL (0.7-1.2) L 10/03/18 05:40 Estimated GFR > 60 ml/min 10/03/18 05:40 35 % 10/03/18 05:40 Glucose 110 mg/dL (65-100) H 10/03/18 05:40 POC Glucose 188 (70-105) H 10/03/18 11:36 Calcium 8.9 mg/dL (8.4-10.2) D 10/03/18 05:40 1.20 mg/dL (0.1-1.2) 10/03/18 05:40 0.4 mg/dL (0-0.2) H 09/29/18 08:48 0.5 mg/dL 09/29/18 08:48 AST 33 units/L (5-40) 10/03/18 05:40 ALT 23 units/L (7-56) 10/03/18 05:40 191 units/L (35-129) H 10/03/18 05:40 82.0 umol/L (25-60) H 10/01/18 07:26 87 units/L (30-135) 09/26/18 06:56 5.7 g/dL (6.3-8.2) L 10/03/18 05:40 2.7 g/dL (3.9-5) L 10/03/18 05:40 0.9 % 10/03/18 05:40 Yellow (Yellow) 09/22/18 17:20 Clear (Clear) 09/22/18 17:20 6.0 (5.0-7.0) 09/22/18 17:20 Ur Specific [place] 1.011 (1.003-1.030) 09/22/18 17:20 <15 mg/dl mg/dL (Negative) 09/22/18 17:20 Neg mg/dL (Negative) 09/22/18 17:20 Neg mg/dL (Negative) 09/22/18 17:20 Mod (Negative) 09/22/18 17:20 Pos (Negative) 09/22/18 17:20 Neg (Negative) 09/22/18 17:20 < 2.0 mg/dL (<2.0) 09/22/18 17:20 Ur Leukocyte Esterase Tr (Negative) 09/22/18 17:20 1.0 /HPF (0.0-6.0) 09/22/18 17:20 < 1.0 /HPF (0.0-6.0) 09/22/18 17:20 Few /HPF 09/22/18 17:20 Blood Type B POSITIVE 09/20/18 17:46 Antibody Screen Negative 09/20/18 17:46 Active Medications - Current Medications Current Medications: Generic Name Dose Route Start Last Admin Trade Name Freq PRN Reason Stop Dose Admin Acetaminophen 650 mg 09/20/18 19:37 10/02/18 16:04 Tylenol PO 650 mg Q4H PRN Administration Pain MILD(1-3)/Fever >100.5/PÉREZ Albuterol 2.5 mg 09/21/18 07:40 Proventil IH Q4HRT PRN Shortness Of Breath Albuterol/Ipratropium 1 ampul 09/21/18 20:00 10/03/18 08:16 Duoneb *Not For Prn Use* IH 1 ampul BIDRT HUONG Administration Lipase/Protease/Amylase 1 each 09/22/18 11:24 Pancreaze 10,500 Unit FEEDTUBE PRN PRN For Clogged Feeding Tube Aspirin 81 mg 09/21/18 10:00 10/03/18 10:22 Baby Aspirin PO 81 mg DAILY HUONG Administration Fluticasone Propionate 50 mcg 09/24/18 10:00 10/03/18 12:39 Flonase NS 50 mcg QDAY HUONG Administration Folic Acid 1 mg 09/21/18 10:00 10/03/18 10:23 Folvite PO 1 mg QDAY HUONG Administration Furosemide 20 mg 09/21/18 10:00 10/03/18 10:31 Lasix PO 20 mg QDAY HUONG Administration Daptomycin 366 mg/ Sodium 100 mls @ 200 mls/hr 09/26/18 11:00 10/03/18 12:34 Chloride IV 10/07/18 11:29 200 mls/hr Q24H HUONG Administration Protocol Cefepime HCl 2 gm in 100 mls @ 200 mls/hr 09/30/18 17:00 10/03/18 05:41 Maxipime/Ns 2 Gm/100 Ml IV 200 mls/hr Q12HR@0600,1800 HUONG Administration Protocol Metronidazole 500 mg in 100 mls @ 100 mls/hr 09/30/18 15:00 10/03/18 06:26 Flagyl 500 Mg/100 Ml IV 100 mls/hr Q8HR HUONG Administration Protocol Lactulose 30 gm 09/21/18 08:00 10/03/18 10:21 Cephulac PO 30 gm TID HUONG Administration Lamotrigine 25 mg 09/21/18 18:00 10/03/18 10:23 Lamictal PO 25 mg BID HUONG Administration Lansoprazole 30 mg 09/27/18 22:00 10/03/18 10:22 Prevacid Solutab FEEDTUBE 30 mg BID HUONG Administration Levetiracetam 1,500 mg 09/28/18 10:00 10/03/18 10:21 Keppra PO 1,500 mg BID HUONG Administration Levothyroxine Sodium 75 mcg 09/22/18 06:00 10/03/18 05:48 Synthroid PO 75 mcg DAILY@0600 HUONG Administration Midodrine 5 mg 09/21/18 16:00 10/03/18 12:34 Proamatine PO 5 mg TID@0800,1200,1600 HUONG Administration Morphine Sulfate 2 mg 09/20/18 19:37 Morphine IV Q4H PRN Pain, Moderate (4-6) Multivitamins 1 each 09/24/18 10:00 10/03/18 10:39 Theragran Tab PO 1 each DAILY HUONG Administration Ondansetron HCl 4 mg 09/20/18 19:37 Zofran IV Q8H PRN Nausea And Vomiting Propranolol HCl 40 mg 09/23/18 15:00 10/03/18 10:24 Inderal PO 40 mg QDAY HUONG Administration Rifaximin 550 mg 09/21/18 22:00 10/03/18 10:22 Xifaxan PO 550 mg BID HUONG Administration Simple Syrup 15 ml 09/22/18 11:24 Simple Syrup FEEDTUBE PRN PRN Hypoglycemia Simple Syrup 30 ml 09/22/18 11:24 Simple Syrup FEEDTUBE PRN PRN Hypoglycemia Sodium Bicarbonate 325 mg 09/22/18 12:49 Sodium Bicarbonate FEEDTUBE PRN PRN For Clogged Feeding Tube Sodium Chloride 10 ml 09/20/18 22:00 10/03/18 10:30 Sodium Chloride Flush Syringe 10 Ml IV 10 ml BID HUONG Administration Spironolactone 50 mg 09/22/18 10:00 10/03/18 10:23 Aldactone PO 50 mg QDAY HUONG Administration Thiamine HCl 100 mg 09/22/18 10:00 10/03/18 10:26 Vitamin B-1 PO 100 mg QDAY HUONG Administration Trazodone HCl 50 mg 09/21/18 15:02 09/21/18 20:54 Desyrel PO 50 mg QHS PRN Administration Sleep Nutrition/Malnutrition Assess - Dietary Evaluation Nutrition/Malnutrition Findings: Nutrition Notes Start: 09/21/18 10:31 Freq: Status: Active Protocol: Document 09/28/18 17:23 RM (Rec: 09/28/18 17:27 RM [id number]) Nutrition Notes Initial or Follow up Reassessment Current Diagnosis Hypertension Other Pertinent Diagnosis Acute GIB, ETOH abuse, liver cirrhosis, dementia, hypothyroidism Current Diet GI soft Labs/Tests Reviewed Pertinent Medications Lasix Height 5 ft 4 in Weight 60.2 kg [place] Body Weight (kg) 54.54 BMI 22.8 Subjective/Other Information Per nurse pt ate 40% of her meals today. Percent of energy/protein needs met: 59%/69% Burn Absent Trauma Absent #2 Nutrition Diagnosis Inadequate oral intake As Evidenced by Signs and Symptoms pt nurse statement that pt ate 40% of her meals today Diagnosis Progress(for reassessment Improved documentation) Is patient on ventilator? No Is Patient Ambulatory and/or Out of Bed No REE-([facility]-confined to bed) [phone] Calculation Used for Recommendations [facility] Additional Notes Pro needs 0.8-1g/k-59g/ day Fluid needs per MD. Nutrition Intervention Change Diet Order: Continue curent Add Supplement/Snack (indicate name/kcal Ensure Enlive 1 daily /protein ) Provides kCal: 350 Provides Protein (gm) 20 Goal #1 Meet at least 75% of energy and protein needs Anticipated Discharge Needs: Unable to determine at this time Follow-Up By: 10/05/18 Additional Comments Follow for PO and ONS intakes
[2018-10-04] MEDS: MAXIPIME/NS 2 GM/100 ML 2 GM/100 ML BAG IV SCH ×2 (05:47→18:31)
[2018-10-04] MEDS: SYNTHROID PO SCH (05:51)
[2018-10-04] MEDS: FLAGYL 500 MG/100 ML 500 MG/100 ML BAG IV SCH ×3 (05:53→21:18)
[2018-10-04] MEDS: DUONEB *Not for PRN Use IH SCH ×2 (08:11→19:34)
--- NOTE | 2018-10-04 08:54 | XRay Report ---
AP CHEST: HISTORY: Atelectasis, abnormal chest x-ray The left lower lobe opacity has decreased by 25% since 09/30/18. This could represent atelectatic changes or residual infiltrate. The remainder of the lungs are clear. Heart size is within normal limits. A right arm PICC remains in good position. IMPRESSION: Mild improvement in the left lower lobe opacity since 09/30/18.
[2018-10-04] MEDS: PROAMATINE PO SCH ×3 (09:17→18:32)
[2018-10-04] MEDS: CEPHULAC PO SCH ×3 (09:17→20:41)
[2018-10-04] MEDS: DAPTOMYCIN IV SCH (12:17)
[2018-10-04] MEDS: NACL 0.9% IV SCH (12:17)
[2018-10-04] MEDS: SODIUM CHLORIDE FLUSH SYRINGE 10 ML IV SCH ×2 (12:18→21:58)
[2018-10-04] MEDS: KEPPRA PO SCH ×2 (12:18→21:19)
[2018-10-04] MEDS: LASIX PO SCH (12:20)
[2018-10-04] MEDS: LaMICtal PO SCH ×2 (12:20→21:20)
[2018-10-04] MEDS: PREVACID SOLUTAB FEEDTUBE SCH ×2 (12:20→21:20)
[2018-10-04] MEDS: FOLVITE PO SCH (12:21)
[2018-10-04] MEDS: FLONASE NS SCH (12:22)
[2018-10-04] MEDS: BABY ASPIRIN PO SCH (14:08)
[2018-10-04] MEDS: INDERAL PO SCH (14:09)
[2018-10-04] MEDS: ALDACTONE PO SCH (14:11)
[2018-10-04] MEDS: XIFAXAN PO SCH ×2 (14:12→21:19)
[2018-10-04] MEDS: VITAMIN B-1 PO SCH (14:12)
[2018-10-04] MEDS: THERAGRAN Tab PO SCH (14:13)
--- NOTE | 2018-10-04 14:14 | Progress Note ---
Assessment and Plan Assessment and plan: Patient is a 62-year-old female with PMHx of CAD, hypertension, COPD, hypothyroidism, dementia, alcohol abuse, liver cirrhosis, h/o hepatic encephalopathy, seizures disorder, and brain aneurysm, brain injury, who was brought to the ER by EMS for complaints of bloody dark red stool in the morning. In the ER, her ammonia level was 88, pt is admitted for further evaluation and treatment. She was refusing PO and mental status and respiratory status continue to decline. Lactulose started with NG tube, blood cx grew MRSA. ID consulted for abx recommendation. Acute hypoxic respiratory failure, likely POA - Possible ARDS from sepsis?? pulmonary edema due to sepsis and hepatic failure ?? 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 ETOH abuse with varices and HE -GI consulted, no planned for endoscopy if H&H remains stable - Already has outpatient follow-up for EGD/colonoscopy - cont Protonix Acute on chronic heaptic encephalopathy, present on admission - -abdominal U/S showed advanced cirrhosis and gallstones but no mass or ascites - Continue lactulose, Mental status much improved now with lactulose Hepatic cirrhosis with portal hypertension and esophageal varices - Due to alcohol abuse -GI following, continue to monitor clinically Dysphagia - On mechanical soft diet, ST consult Primary cytopenia; due to hypersplenism Other chronic issues: Hypertension H/o CAD H/o alcohol abuse H/o seizures disorder H/o brain aneurysm Hypothyroidism H/o dementia, alcohol induced - cont home meds, supportive care, hold plavix - No heparin for DVT prophylasix due to bleeding, placed on SCD Disposition: SNF placement pending for Thursday History Interval history: Review of systems Constitutional: No fevers, no malaise, no joint pains CVS: No chest pain, no orthopnea, no pedal edema GI: No abdominal pain, no diarrhea, no vomiting, no constipation Respiratory: No shortness of breath, no wheezing, no coughing Hospitalist Physical - Physical exam Narrative exam: General.: Appears chronically ill, no distress, nontoxic, cachectic HEENT: Moist mucous membranes, extraocular muscles intact, no lymphadenopathy Neck: supple Cardiac: S1-S2 heard Lungs: Diminished air entry Abdomen: soft , nontender, nondistended, bowel sounds positive Extremities: no edema clubbing or cyanosis Skin: no rash or lesions Neurologic: no gross focal deficits Psych: calm, and cooperative - Constitutional Vitals: Temp Pulse Resp BP Pulse Ox 97.6 F 79 22 96/60 94 10/04/18 13:05 10/04/18 14:11 10/04/18 13:05 10/04/18 14:11 10/04/18 13:05 General appearance: Present: no acute distress Results - Labs CBC & Chem 7: 09/29/18 08:48 10/03/18 05:40 Labs: Laboratory Last Values WBC 9.0 K/mm3 (4.5-11.0) 09/29/18 08:48 RBC 3.50 M/mm3 (3.65-5.03) L 09/29/18 08:48 Hgb 10.4 gm/dl (10.1-14.3) 09/29/18 08:48 Hgb 10.4 gm/dl (10.1-14.3) 09/29/18 08:48 Hct 31.0 % (30.3-42.9) 09/29/18 08:48 Hct 31.0 % (30.3-42.9) 09/29/18 08:48 MCV 88 fl (79-97) 09/29/18 08:48 MCH 30 pg (28-32) 09/29/18 08:48 MCHC 34 % (30-34) 09/29/18 08:48 RDW 20.3 % (13.2-15.2) H 09/29/18 08:48 Plt Count 128 K/mm3 (140-440) L 09/29/18 08:48 Lymph % (Auto) 6.9 % (13.4-35.0) L 09/27/18 05:43 [place] % (Auto) Professor Of Violin 09/29/18 08:48 Eos % (Auto) 0.8 % (0.0-4.3) 09/27/18 05:43 Baso % (Auto) 0.4 % (0.0-1.8) 09/27/18 05:43 Lymph # 0.5 K/mm3 (1.2-5.4) L 09/27/18 05:43 [place] # 0.6 K/mm3 (0.0-0.8) 09/27/18 05:43 Eos # 0.1 K/mm3 (0.0-0.4) 09/27/18 05:43 Baso # 0.0 K/mm3 (0.0-0.1) 09/27/18 05:43 Add Manual Diff Complete 09/29/18 08:48 Total Counted 100 09/29/18 08:48 Seg Neutrophils % 82.4 % (40.0-70.0) H 09/27/18 05:43 Seg Neuts % (Manual) 80.0 % (40.0-70.0) H 09/29/18 08:48 0 % 09/29/18 08:48 7.0 % (13.4-35.0) L 09/29/18 08:48 Reactive Lymphs % (Man) 0 % 09/29/18 08:48 11.0 % (0.0-7.3) H 09/29/18 08:48 2.0 % (0.0-4.3) 09/29/18 08:48 0 % (0.0-1.8) 09/29/18 08:48 0 % 09/29/18 08:48 0 % 09/29/18 08:48 0 % 09/29/18 08:48 0 % 09/29/18 08:48 Nucleated RBC % 1.0 % (0.0-0.9) H 09/29/18 08:48 Seg Neutrophils # 5.6 K/mm3 (1.8-7.7) 09/27/18 05:43 Seg Neutrophils # Man 7.2 K/mm3 (1.8-7.7) 09/29/18 08:48 Band Neutrophils # 0.0 K/mm3 09/29/18 08:48 0.6 K/mm3 (1.2-5.4) L 09/29/18 08:48 Abs React Lymphs (Man) 0.0 K/mm3 09/29/18 08:48 1.0 K/mm3 (0.0-0.8) H 09/29/18 08:48 0.2 K/mm3 (0.0-0.4) 09/29/18 08:48 0.0 K/mm3 (0.0-0.1) 09/29/18 08:48 0.0 K/mm3 09/29/18 08:48 0.0 K/mm3 09/29/18 08:48 0.0 K/mm3 09/29/18 08:48 Blast Cells # 0.0 K/mm3 09/29/18 08:48 WBC Morphology Not Reportable 09/29/18 08:48 Hypersegmented Neuts Not Reportable 09/29/18 08:48 Hyposegmented Neuts Not Reportable 09/29/18 08:48 Hypogranular Neuts Not Reportable 09/29/18 08:48 Not Reportable 09/29/18 08:48 Not Reportable 09/29/18 08:48 Not Reportable 09/29/18 08:48 Not Reportable 09/29/18 08:48 Not Reportable 09/29/18 08:48 Not Reportable 09/29/18 08:48 Consistent w auto 09/29/18 08:48 Not Reportable 09/29/18 08:48 Plt Clumps, EDTA Not Reportable 09/29/18 08:48 Not Reportable 09/29/18 08:48 Not Reportable 09/29/18 08:48 Not Reportable 09/29/18 08:48 Plt Morphology Comment Not Reportable 09/29/18 08:48 RBC Morphology Not Reportable 09/29/18 08:48 Dimorphic RBCs Not Reportable 09/29/18 08:48 Not Reportable 09/29/18 08:48 Not Reportable 09/29/18 08:48 1+ 09/29/18 08:48 1+ 09/29/18 08:48 Not Reportable 09/29/18 08:48 Not Reportable 09/29/18 08:48 Not Reportable 09/29/18 08:48 Not Reportable 09/29/18 08:48 Not Reportable 09/29/18 08:48 Not Reportable 09/29/18 08:48 Not Reportable 09/29/18 08:48 Few 09/29/18 08:48 Not Reportable 09/29/18 08:48 Not Reportable 09/29/18 08:48 Not Reportable 09/29/18 08:48 Not Reportable 09/29/18 08:48 Not Reportable 09/29/18 08:48 Not Reportable 09/29/18 08:48 Few 09/29/18 08:48 Acanthocytes (Spur) Not Reportable 09/29/18 08:48 Rouleaux Not Reportable 09/29/18 08:48 Not Reportable 09/29/18 08:48 Not Reportable 09/29/18 08:48 Not Reportable 09/29/18 08:48 Not Reportable 09/29/18 08:48 Hem Pathologist Commnt No 09/29/18 08:48 PT 17.1 Sec. (12.2-14.9) H 09/24/18 05:33 INR 1.31 (0.87-1.13) H 09/24/18 05:33 APTT 30.5 Sec. (24.2-36.6) 09/20/18 17:54 POC ABG pH 7.460 (7.35-7.45) H 09/24/18 17:01 POC ABG pCO2 31.2 (35-45) L 09/24/18 17:01 POC ABG pO2 73 (80-105) L 09/24/18 17:01 POC ABG HCO3 22.1 (22-26 mml/L) 09/24/18 17:01 POC ABG Total CO2 23 (23-27mmol/L) 09/24/18 17:01 POC ABG O2 Sat 95 09/24/18 17:01 POC ABG Base Excess -2 ((-2) - (+3)mmol/L) 09/24/18 17:01 50 % 09/24/18 17:01 Sodium 145 mmol/L (137-145) D 10/03/18 05:40 Potassium 3.6 mmol/L (3.6-5.0) 10/03/18 05:40 Chloride 109.7 mmol/L (98-107) H 10/03/18 05:40 Carbon Dioxide 25 mmol/L (22-30) 10/03/18 05:40 14 mmol/L 10/03/18 05:40 BUN 14 mg/dL (7-17) 10/03/18 05:40 0.4 mg/dL (0.7-1.2) L 10/03/18 05:40 Estimated GFR > 60 ml/min 10/03/18 05:40 35 % 10/03/18 05:40 Glucose 110 mg/dL (65-100) H 10/03/18 05:40 POC Glucose 188 (70-105) H 10/03/18 11:36 Calcium 8.9 mg/dL (8.4-10.2) D 10/03/18 05:40 1.20 mg/dL (0.1-1.2) 10/03/18 05:40 0.4 mg/dL (0-0.2) H 09/29/18 08:48 0.5 mg/dL 09/29/18 08:48 AST 33 units/L (5-40) 10/03/18 05:40 ALT 23 units/L (7-56) 10/03/18 05:40 191 units/L (35-129) H 10/03/18 05:40 82.0 umol/L (25-60) H 10/01/18 07:26 87 units/L (30-135) 09/26/18 06:56 5.7 g/dL (6.3-8.2) L 10/03/18 05:40 2.7 g/dL (3.9-5) L 10/03/18 05:40 0.9 % 10/03/18 05:40 Yellow (Yellow) 09/22/18 17:20 Clear (Clear) 09/22/18 17:20 6.0 (5.0-7.0) 09/22/18 17:20 Ur Specific [place] 1.011 (1.003-1.030) 09/22/18 17:20 <15 mg/dl mg/dL (Negative) 09/22/18 17:20 Neg mg/dL (Negative) 09/22/18 17:20 Neg mg/dL (Negative) 09/22/18 17:20 Mod (Negative) 09/22/18 17:20 Pos (Negative) 09/22/18 17:20 Neg (Negative) 09/22/18 17:20 < 2.0 mg/dL (<2.0) 09/22/18 17:20 Ur Leukocyte Esterase Tr (Negative) 09/22/18 17:20 1.0 /HPF (0.0-6.0) 09/22/18 17:20 < 1.0 /HPF (0.0-6.0) 09/22/18 17:20 Few /HPF 09/22/18 17:20 Blood Type B POSITIVE 09/20/18 17:46 Antibody Screen Negative 09/20/18 17:46 Active Medications - Current Medications Current Medications: Generic Name Dose Route Start Last Admin Trade Name Freq PRN Reason Stop Dose Admin Acetaminophen 650 mg 09/20/18 19:37 10/02/18 16:04 Tylenol PO 650 mg Q4H PRN Administration Pain MILD(1-3)/Fever >100.5/PÉREZ Albuterol 2.5 mg 09/21/18 07:40 Proventil IH Q4HRT PRN Shortness Of Breath Albuterol/Ipratropium 1 ampul 09/21/18 20:00 10/04/18 08:11 Duoneb *Not For Prn Use* IH 1 ampul BIDRT HUONG Administration Lipase/Protease/Amylase 1 each 09/22/18 11:24 Pancreaze 10,500 Unit FEEDTUBE PRN PRN For Clogged Feeding Tube Aspirin 81 mg 09/21/18 10:00 10/04/18 14:08 Baby Aspirin PO 81 mg DAILY HUONG Administration Fluticasone Propionate 50 mcg 09/24/18 10:00 10/04/18 12:22 Flonase NS 50 mcg QDAY HUONG Administration Folic Acid 1 mg 09/21/18 10:00 10/04/18 12:21 Folvite PO 1 mg QDAY HUONG Administration Furosemide 20 mg 09/21/18 10:00 10/04/18 12:20 Lasix PO 20 mg QDAY HUONG Administration Daptomycin 366 mg/ Sodium 100 mls @ 200 mls/hr 09/26/18 11:00 10/04/18 12:17 Chloride IV 10/07/18 11:29 200 mls/hr Q24H HUONG Administration Protocol Cefepime HCl 2 gm in 100 mls @ 200 mls/hr 09/30/18 17:00 10/04/18 05:47 Maxipime/Ns 2 Gm/100 Ml IV 200 mls/hr Q12HR@0600,1800 HUONG Administration Protocol Metronidazole 500 mg in 100 mls @ 100 mls/hr 09/30/18 15:00 10/04/18 14:08 Flagyl 500 Mg/100 Ml IV 100 mls/hr Q8HR HUONG Administration Protocol Lactulose 30 gm 09/21/18 08:00 10/04/18 14:13 Cephulac PO 30 gm TID HUONG Administration Lamotrigine 25 mg 09/21/18 18:00 10/04/18 12:20 Lamictal PO 25 mg BID HUONG Administration Lansoprazole 30 mg 09/27/18 22:00 10/04/18 12:20 Prevacid Solutab FEEDTUBE 30 mg BID HUONG Administration Levetiracetam 1,500 mg 09/28/18 10:00 10/04/18 12:18 Keppra PO 1,500 mg BID HUONG Administration Levothyroxine Sodium 75 mcg 09/22/18 06:00 10/04/18 05:51 Synthroid PO 75 mcg DAILY@0600 HUONG Administration Midodrine 5 mg 09/21/18 16:00 10/04/18 12:19 Proamatine PO 5 mg TID@0800,1200,1600 HUONG Administration Morphine Sulfate 2 mg 09/20/18 19:37 Morphine IV Q4H PRN Pain, Moderate (4-6) Multivitamins 1 each 09/24/18 10:00 10/04/18 14:13 Theragran Tab PO 1 each DAILY HUONG Administration Ondansetron HCl 4 mg 09/20/18 19:37 Zofran IV Q8H PRN Nausea And Vomiting Propranolol HCl 40 mg 09/23/18 15:00 10/04/18 14:09 Inderal PO 40 mg QDAY HUONG Administration Rifaximin 550 mg 09/21/18 22:00 10/04/18 14:12 Xifaxan PO 550 mg BID HUONG Administration Simple Syrup 15 ml 09/22/18 11:24 Simple Syrup FEEDTUBE PRN PRN Hypoglycemia Simple Syrup 30 ml 09/22/18 11:24 Simple Syrup FEEDTUBE PRN PRN Hypoglycemia Sodium Bicarbonate 325 mg 09/22/18 12:49 Sodium Bicarbonate FEEDTUBE PRN PRN For Clogged Feeding Tube Sodium Chloride 10 ml 09/20/18 22:00 10/04/18 12:18 Sodium Chloride Flush Syringe 10 Ml IV 10 ml BID HUONG Administration Spironolactone 50 mg 09/22/18 10:00 10/04/18 14:11 Aldactone PO 50 mg QDAY HUONG Administration Thiamine HCl 100 mg 09/22/18 10:00 10/04/18 14:12 Vitamin B-1 PO 100 mg QDAY HUONG Administration Trazodone HCl 50 mg 09/21/18 15:02 09/21/18 20:54 Desyrel PO 50 mg QHS PRN Administration Sleep Nutrition/Malnutrition Assess - Dietary Evaluation Nutrition/Malnutrition Findings: Nutrition Notes Start: 09/21/18 10:31 Freq: Status: Active Protocol: Document 09/28/18 17:23 RM (Rec: 09/28/18 17:27 RM [id number]) Nutrition Notes Initial or Follow up Reassessment Current Diagnosis Hypertension Other Pertinent Diagnosis Acute GIB, ETOH abuse, liver cirrhosis, dementia, hypothyroidism Current Diet GI soft Labs/Tests Reviewed Pertinent Medications Lasix Height 5 ft 4 in Weight 60.2 kg [place] Body Weight (kg) 54.54 BMI 22.8 Subjective/Other Information Per nurse pt ate 40% of her meals today. Percent of energy/protein needs met: 59%/69% Burn Absent Trauma Absent #2 Nutrition Diagnosis Inadequate oral intake As Evidenced by Signs and Symptoms pt nurse statement that pt ate 40% of her meals today Diagnosis Progress(for reassessment Improved documentation) Is patient on ventilator? No Is Patient Ambulatory and/or Out of Bed No REE-([facility]-confined to bed) [phone] Calculation Used for Recommendations [facility] Additional Notes Pro needs 0.8-1g/k-59g/ day Fluid needs per MD. Nutrition Intervention Change Diet Order: Continue curent Add Supplement/Snack (indicate name/kcal Ensure Enlive 1 daily /protein ) Provides kCal: 350 Provides Protein (gm) 20 Goal #1 Meet at least 75% of energy and protein needs Anticipated Discharge Needs: Unable to determine at this time Follow-Up By: 10/05/18 Additional Comments Follow for PO and ONS intakes
--- NOTE | 2018-10-04 17:56 | Progress Note ---
Assessment and Plan Patient awake. Resting on 4 litres O2. and O2 saturation 92%. No acute respiratory distress. - Patient Problems (1) Acute respiratory failure with hypoxia Current Visit: No Status: Acute Plan to address problem: On 4 litres O2. and O2 saturation 92%. No acute respiratory distress. Albuterol/atrovent aerosol treatments q 6 hours. SCDs Continue Protonix. (2) Hepatic encephalopathy syndrome Current Visit: Yes Status: Acute Plan to address problem: Patient is on Lactulose. Mangement as per Primary care and GI. (3) Cirrhosis, alcoholic Current Visit: Yes Status: Chronic Plan to address problem: Management as per GI. (4) GI bleed Current Visit: No Status: Acute Plan to address problem: Management as per GI. Subjective Date of service: 10/04/18 Principal diagnosis: rectal bleeding, cirrhosis Interval history: Patient awake. Resting on 4 litres O2. and O2 saturation 92%. No acute respiratory distress. Objective - Exam Narrative Exam: General appearance: Chronically ill looking, alert, awake Eyes: anicteric sclerae, moist conjunctivae; no lid-lag; PERRLA HENT: Atraumatic; oropharynx clear with moist mucous membranes and no mucosal ulcerations/no oral thrush;+NGT Neck: Trachea midline; supple, no thyromegaly or lymphadenopathy Lungs: CTA, with normal respiratory effort and no intercostal retractions CV: RRR, S1, S2, no murmurs Abdomen: Soft, non-tender; no masses or hepatosplenomegaly Extremities: No peripheral edema or extremity lymphadenopathy UExt PICC line, bilateral upper digital clubbing Skin: Normal temperature, turgor and texture; no rash, ulcers or subcutaneous nodules Psych: alert no agitated Neuro: Awake, alert, obeys commands, non-focal, slow speech Vital Signs - 12hr 10/04/18 10/04/18 10/04/18 08:00 08:12 08:13 Temperature Pulse Rate Pulse Rate [ 73 75 Anterior Bilateral Throughout] Respiratory Rate Respiratory 22 19 Rate [Anterior Bilateral Throughout] Blood Pressure O2 Sat by Pulse 89 Oximetry 10/04/18 10/04/18 10/04/18 13:05 14:09 14:11 Temperature 97.6 F Pulse Rate 79 79 79 Pulse Rate [ Anterior Bilateral Throughout] Respiratory 22 Rate Respiratory Rate [Anterior Bilateral Throughout] Blood Pressure 96/60 96/60 96/60 O2 Sat by Pulse 94 Oximetry Constitutional: no acute distress, alert Eyes: non-icteric ENT: oropharynx dry Neck: supple, no lymphadenopathy Effort: normal Ascultation: Bilateral: diminished breath sounds Cardiovascular: regular rate and rhythm, other (S1,S2) Gastrointestinal: normoactive bowel sounds, soft, non-tender Integumentary: normal, rash Extremities: no cyanosis, no edema, pulses normal, other (Digital clubbing) Neurologic: normal mental status, non-focal exam, pupils equal and round, motor strength normal and Psychiatric: mood appropriate, affect normal CBC and BMP: 09/29/18 08:48 10/03/18 05:40 ABG, PT/INR, D-dimer: ABG POC ABG pH 7.460 (7.35-7.45) H 09/24/18 17:01 POC ABG pCO2 31.2 (35-45) L 09/24/18 17:01 POC ABG pO2 73 (80-105) L 09/24/18 17:01 POC ABG HCO3 22.1 (22-26 mml/L) 09/24/18 17:01 POC ABG Total CO2 23 (23-27mmol/L) 09/24/18 17:01 POC ABG O2 Sat 95 09/24/18 17:01 PT/INR, D-dimer PT 17.1 Sec. (12.2-14.9) H 09/24/18 05:33 INR 1.31 (0.87-1.13) H 09/24/18 05:33 Abnormal lab findings: Abnormal Labs 09/20/18 09/20/18 09/20/18 17:46 17:46 17:54 RBC MCHC RDW 19.8 H Plt Count Lymph % (Auto) [place] % (Auto) Lymph # Seg Neutrophils % Seg Neuts % (Manual) Lymphocytes % (Manual) Monocytes % (Manual) Nucleated RBC % Lymphocytes # (Manual) Monocytes # (Manual) PT 17.5 H INR 1.35 H POC ABG pH POC ABG pCO2 POC ABG pO2 Sodium Potassium Chloride BUN Creatinine 0.6 L Glucose POC Glucose Calcium Direct Bilirubin AST Alkaline Phosphatase Ammonia Total Protein Albumin 3.7 L 09/20/18 09/22/18 09/23/18 17:55 12:16 07:01 RBC MCHC RDW Plt Count Lymph % (Auto) [place] % (Auto) Lymph # Seg Neutrophils % Seg Neuts % (Manual) Lymphocytes % (Manual) Monocytes % (Manual) Nucleated RBC % Lymphocytes # (Manual) Monocytes # (Manual) PT INR POC ABG pH POC ABG pCO2 POC ABG pO2 Sodium Potassium Chloride BUN Creatinine Glucose POC Glucose Calcium Direct Bilirubin AST Alkaline Phosphatase Ammonia 88.0 H 134.0 H 106.0 H Total Protein Albumin 09/23/18 09/23/18 09/24/18 09:57 09:57 05:33 RBC MCHC RDW 19.9 H Plt Count Lymph % (Auto) [place] % (Auto) Lymph # Seg Neutrophils % Seg Neuts % (Manual) Lymphocytes % (Manual) Monocytes % (Manual) Nucleated RBC % Lymphocytes # (Manual) Monocytes # (Manual) PT 17.1 H INR 1.31 H POC ABG pH POC ABG pCO2 POC ABG pO2 Sodium Potassium 3.5 L Chloride BUN Creatinine 0.5 L Glucose 157 H POC Glucose Calcium 8.0 L Direct Bilirubin AST Alkaline Phosphatase Ammonia Total Protein 6.0 L Albumin 3.2 L 09/24/18 09/24/18 09/24/18 05:33 05:33 17:01 RBC MCHC RDW Plt Count Lymph % (Auto) [place] % (Auto) Lymph # Seg Neutrophils % Seg Neuts % (Manual) Lymphocytes % (Manual) Monocytes % (Manual) Nucleated RBC % Lymphocytes # (Manual) Monocytes # (Manual) PT INR POC ABG pH 7.460 H POC ABG pCO2 31.2 L POC ABG pO2 73 L Sodium Potassium Chloride BUN 6 L Creatinine 0.5 L Glucose 161 H POC Glucose Calcium Direct Bilirubin AST Alkaline Phosphatase Ammonia 77.0 H Total Protein Albumin 09/26/18 09/26/18 09/26/18 06:56 06:56 06:56 RBC MCHC RDW 19.6 H Plt Count 137 L Lymph % (Auto) [place] % (Auto) Lymph # Seg Neutrophils % Seg Neuts % (Manual) Lymphocytes % (Manual) Monocytes % (Manual) Nucleated RBC % Lymphocytes # (Manual) Monocytes # (Manual) PT INR POC ABG pH POC ABG pCO2 POC ABG pO2 Sodium 136 L Potassium Chloride BUN Creatinine 0.4 L Glucose 130 H POC Glucose Calcium 8.3 L Direct Bilirubin AST 41 H Alkaline Phosphatase 133 H Ammonia 92.0 H Total Protein 5.9 L Albumin 3.1 L 09/27/18 09/27/18 09/29/18 05:43 05:43 08:48 RBC 3.53 L MCHC 35 H RDW 19.3 H Plt Count 122 L Lymph % (Auto) 6.9 L [place] % (Auto) 9.5 H Lymph # 0.5 L Seg Neutrophils % 82.4 H Seg Neuts % (Manual) Lymphocytes % (Manual) Monocytes % (Manual) Nucleated RBC % Lymphocytes # (Manual) Monocytes # (Manual) PT INR POC ABG pH POC ABG pCO2 POC ABG pO2 Sodium Potassium Chloride BUN Creatinine Glucose POC Glucose Calcium Direct Bilirubin 0.4 H AST Alkaline Phosphatase 169 H Ammonia 65.0 H Total Protein 5.6 L Albumin 2.9 L 09/29/18 09/29/18 10/01/18 08:48 08:48 07:26 RBC 3.50 L MCHC RDW 20.3 H Plt Count 128 L Lymph % (Auto) [place] % (Auto) Lymph # Seg Neutrophils % Seg Neuts % (Manual) 80.0 H Lymphocytes % (Manual) 7.0 L Monocytes % (Manual) 11.0 H Nucleated RBC % 1.0 H Lymphocytes # (Manual) 0.6 L Monocytes # (Manual) 1.0 H PT INR POC ABG pH POC ABG pCO2 POC ABG pO2 Sodium 133 L Potassium 3.4 L Chloride 97.7 L BUN Creatinine 0.4 L Glucose 147 H POC Glucose Calcium 7.7 L Direct Bilirubin AST Alkaline Phosphatase 185 H Ammonia 72.0 H Total Protein 5.1 L Albumin 2.4 L 10/01/18 10/02/18 10/02/18 07:26 12:29 17:03 RBC MCHC RDW Plt Count Lymph % (Auto) [place] % (Auto) Lymph # Seg Neutrophils % Seg Neuts % (Manual) Lymphocytes % (Manual) Monocytes % (Manual) Nucleated RBC % Lymphocytes # (Manual) Monocytes # (Manual) PT INR POC ABG pH POC ABG pCO2 POC ABG pO2 Sodium Potassium Chloride BUN Creatinine Glucose POC Glucose 137 H 130 H Calcium Direct Bilirubin AST Alkaline Phosphatase Ammonia 82.0 H Total Protein Albumin 10/03/18 10/03/18 10/03/18 05:40 07:53 11:36 RBC MCHC RDW Plt Count Lymph % (Auto) [place] % (Auto) Lymph # Seg Neutrophils % Seg Neuts % (Manual) Lymphocytes % (Manual) Monocytes % (Manual) Nucleated RBC % Lymphocytes # (Manual) Monocytes # (Manual) PT INR POC ABG pH POC ABG pCO2 POC ABG pO2 Sodium Potassium Chloride 109.7 H BUN Creatinine 0.4 L Glucose 110 H POC Glucose 122 H 188 H Calcium Direct Bilirubin AST Alkaline Phosphatase 191 H Ammonia Total Protein 5.7 L Albumin 2.7 L Chest x-ray: report reviewed (Mild improvement in left lower lobe opacity.), image reviewed Allied health notes reviewed: nursing
[2018-10-05] MEDS: MAXIPIME/NS 2 GM/100 ML 2 GM/100 ML BAG IV SCH (06:31)
[2018-10-05] MEDS: SYNTHROID PO SCH (06:38)
[2018-10-05] MEDS: FLAGYL 500 MG/100 ML 500 MG/100 ML BAG IV SCH (06:45)
[2018-10-05] MEDS: DUONEB *Not for PRN Use IH SCH (09:06)
[2018-10-05] MEDS: NACL 0.9% IV SCH (10:08)
[2018-10-05] MEDS: DAPTOMYCIN IV SCH (10:08)
[2018-10-05] MEDS: VITAMIN B-1 PO SCH (10:11)
[2018-10-05] MEDS: XIFAXAN PO SCH (10:11)
[2018-10-05] MEDS: THERAGRAN Tab PO SCH (10:11)
[2018-10-05] MEDS: KEPPRA PO SCH (10:11)
[2018-10-05] MEDS: INDERAL PO SCH (10:13)
[2018-10-05] MEDS: PROAMATINE PO SCH ×2 (10:14→16:02)
[2018-10-05] MEDS: LaMICtal PO SCH (10:14)
[2018-10-05] MEDS: PREVACID SOLUTAB FEEDTUBE SCH (10:15)
[2018-10-05] MEDS: BABY ASPIRIN PO SCH (10:15)
[2018-10-05] MEDS: FOLVITE PO SCH (10:15)
[2018-10-05] MEDS: LASIX PO SCH (10:16)
[2018-10-05] MEDS: FLONASE NS SCH (10:18)
[2018-10-05] MEDS: ALDACTONE PO SCH (10:19)
[2018-10-05] MEDS: CEPHULAC PO SCH ×2 (10:56→16:04)
--- NOTE | 2018-10-05 11:00 | Discharge Summary ---
Providers - Providers Date of Admission: 09/20/18 19:19 Attending physician: ELAINE MIXON MD 09/20/18 19:15 Consult to Physician [CONS] Urgent Comment: Consulting Provider: AUDELIA VEGA Physician Instructions: Reason For Exam: rectal bleeding, liver cirrhosis 09/22/18 11:24 Consult to Dietitian/Nutrition [CONS] Stat Physician Instructions: Reason For Exam: Reason for Consult: Write/Manage Tube Feeding 09/22/18 11:25 Consult to Dietitian/Nutrition [CONS] Routine Physician Instructions: Assess nutrtn needs, initiate, modify, manage TF Reason For Exam: Reason for Consult: Write/Manage Tube Feeding Reason for Consult: Write/Manage Tube Feeding 09/24/18 11:34 Consult to Physician [CONS] Routine Comment: Consulting Provider: JONATAN PEDRAZA Physician Instructions: Reason For Exam: acute respiratory failure 09/25/18 13:44 Consult to Physician [CONS] Routine Comment: Consulting Provider: MADDY MATTHEW Physician Instructions: Reason For Exam: MRSA bacteremia 09/27/18 07:36 Speech Therapy Evaluation and Treat [CONS] Routine Reason For Exam: aspiration 09/27/18 11:18 Consult to Case Management [CONS] Stat Services Needed at Discharge: 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 Remove PICC line after last dose unless otherwise instructed. Lines:PICC Lab monitoring: CBC, AST, ALT, creat, CRP, CK once a week preferly on Thursday morning. Please fax results to [phone] and call [phone] for critical lab results. Maddy Torres Date: 09/27/2018 09/27/18 11:21 Consult to PICC Line RN [CONS] Stat Reason For Exam: IV antibiotics Type Line:: PICC 09/27/18 13:58 Physical Therapy Evaluation and Treat [CONS] Routine Comment: Reason For Exam: placement 10/03/18 12:59 Speech Therapy Evaluation and Treat [CONS] Routine Reason For Exam: dysphagia [facility] Condition: Stable Hospital course: Patient is a 62-year-old female with PMHx of CAD, hypertension, COPD, hypothyroidism, dementia, alcohol abuse, liver cirrhosis, h/o hepatic enc ephalopathy, seizures disorder, and brain aneurysm, brain injury, who was brought to the ER by EMS for complaints of bloody dark red stool in the morning. In the ER, her ammonia level was 88, pt is admitted for further evaluation and treatment. She was refusing PO and mental status and respiratory status continue to decline. Lactulose started with NG tube, blood cx grew MRSA. ID consulted for abx recommendation. Acute hypoxic respiratory failure, rx with Ventimask and then weaned to nasal cannula oxygen prior to discharge MRSA bacteremia, sepsis, pneumonia She was treated with Antibiotics per ID - contact isolation, ID consulted, no vegetation on TTE with preserved EF - -discharge on Cubicin (daptomycin) 400 mg IV qday total 14 days until , picc line placed Acute GIB (etiology unclear) - Continue to monitor H&H, which is stable so far -etiology-patient has a hx of alcoholic cirrhosis 2/2 former ETOH abuse with varices and HE -GI consulted, no planned for endoscopy if H&H remains stable - Already has outpatient follow-up for EGD/colonoscopy -Continued Protonix Acute on chronic heaptic encephalopathy, present on admission - -abdominal U/S showed advanced cirrhosis and gallstones but no mass or ascites -She was treated with lactulose, Mental status much improved now with lactulose Hepatic cirrhosis with portal hypertension and esophageal varices - Due to alcohol abuse, Dysphagia - On mechanical soft diet per speech therapy recommendation Primary thrombocytopenia; due to hypersplenism Other chronic issues: Hypertension H/o CAD H/o alcohol abuse H/o seizures disorder H/o brain aneurysm Hypothyroidism H/o dementia, alcohol induced - cont home meds, supportive care, hold plavix - No heparin for DVT prophylasix due to bleeding, placed on SCD Disposition: SNF placement pending for Thursday Disposition: DC/[place]-03 SNF [facility] Time spent for discharge: 33 mins Core Measure Documentation - Palliative Care Palliative Care/ Comfort Measures: Not Applicable - Core Measures Any of the following diagnoses?: none Exam - Constitutional Vitals: Temp Pulse Resp BP Pulse Ox 97.6 F 80 16 117/70 94 10/05/18 04:42 10/05/18 10:19 10/05/18 08:00 10/05/18 10:19 10/05/18 09:06 General appearance: Present: no acute distress, well-nourished - EENT Eyes: Present: PERRL ENT: hearing intact, clear oral mucosa - Neck Neck: Present: supple, normal ROM - Respiratory Respiratory effort: normal Respiratory: bilateral: diminished - Cardiovascular Heart Sounds: Present: S1 & S2. Absent: rub, click - Extremities Extremities: pulses symmetrical, No edema Peripheral Pulses: within normal limits - Abdominal General gastrointestinal: Present: soft, non-tender, non-distended, normal bowel sounds Female genitourinary: Present: normal - Integumentary Integumentary: Present: clear, warm, dry - Musculoskeletal Musculoskeletal: gait normal, strength equal bilaterally - Psychiatric Psychiatric: cooperative, no agitated - Neurologic Neurologic: CNII-XII intact, moves all extremities Plan Follow up with: CATARINA OCAMPO MD [Primary Care Provider] - 7 Days Prescriptions: HYDROcodone/APAP 10-325 [[place] 10/325] 1 each PO Q6HR PRN #7 tablet PRN Reason: Pain
--- NOTE | 2018-10-05 11:26 | Progress Note ---
Assessment and Plan Cultures: Blood cultures 09/22/18: 1 out of 4 MRSA (Vanco HUY 2). Blood cultures 09/24/18: NGTD Occult blood stool positive Assessment: 62-year-old female with PMH of CAD, hypertension, COPD, hypothyroidism, dementia, alcohol abuse, liver cirrhosis, hepatic encephalopathy, seizures disorder, brain aneurysm, brain injury, who was brought to the ER by EMS on 09/20/18 with complaints of dark red bloody stool per rectum and increased lethargy over the last few days. Found to have: 1) MRSA bacteremia: 1 out of 4 blood culture bottles positive on 09/22/18. Repeat Blood culture on 09/24/18 NGTD. Unclear source. No central lines, no skin wounds, no hardware, ?endocarditis. Vancomycin HUY 2. TTE no vegetations. Unclear source. 2) Acute hepatic encephalopathy. Ammonia of 88 on admission. Improved on lactulose. 3) ETOH liver cirrhosis with portal hypertension and esophageal varices. No evidence of ascites on abdominal US done on admission. 4) Acute hypoxic respiratory failure, likely POA. CXR and CT chest no infiltrates. 5) Acute GIB. 6) H/o etoh abuse, dementia alcohol induced, brain aneurysm. 7) Thrombocytopenia: ? cirrhosis 8) Acute resp failure: on venturi mask, repeat CXR LLL pneumonia likely aspiration vs HAP 9) Isolated fever ? from new pneumonia Plan: -stopcefepime and flagyl D6 of 6 -continue daptomycin D10 -upon discharge will do daptomycin 400 mg IV qday total 14 days until 10/07/2018. Will follow Maddy Kaba MD Infectious Diseases Hand Method Lasting Machine Operator [facility] M [phone] O [phone] Subjective Date of service: 10/05/18 Principal diagnosis: rectal bleeding, cirrhosis Interval history: Patient feels better, no SOB. No fever. ROS: as above rest neg Objective - Exam Narrative Exam: General appearance: Alert, in NAD, conversant, on mask O2 Eyes: anicteric sclerae, moist conjunctivae; no lid-lag; PERRLA HENT: Atraumatic; oropharynx clear with moist mucous membranes and no mucosal ulcerations/no oral thrush;+NGT Neck: Trachea midline; supple, no thyromegaly or lymphadenopathy Lungs: CTA suzy CV: RRR, no murmurs Abdomen: Soft, non-tender; no masses or hepatosplenomegaly Extremities: No peripheral edema or extremity lymphadenopathy Skin: Normal temperature, turgor and texture; no rash, ulcers or subcutaneous nodules Psych: alert no agitated Neuro: alert, follows commands. Grossly non-focal - Constitutional Vitals: Vital Signs Temp Pulse Resp BP Pulse Ox 97.6 F 80 16 117/70 94 10/05/18 04:42 10/05/18 10:19 10/05/18 08:00 10/05/18 10:19 10/05/18 09:06 Temperature -Last 24 Hours Temperature 97.6 F Temperature 97.3 F Temperature 97.9 F Temperature 98.0 F Temperature 97.6 F - Labs CBC & Chem 7: 09/29/18 08:48 10/03/18 05:40
--- NOTE | 2018-10-05 14:47 | Progress Note ---
Assessment and Plan Patient awake. Resting on 4 litres O2. and O2 saturation 92%. No acute respiratory distress - Patient Problems (1) Acute respiratory failure with hypoxia Current Visit: No Status: Acute Plan to address problem: On 4 litres O2. and O2 saturation 92%. No acute respiratory distress. Albuterol/atrovent aerosol treatments q 6 hours. SCDs Continue Protonix. (2) Hepatic encephalopathy syndrome Current Visit: Yes Status: Acute Plan to address problem: Patient is on Lactulose. Mangement as per Primary care and GI. (3) Cirrhosis, alcoholic Current Visit: Yes Status: Chronic Plan to address problem: Management as per GI. (4) GI bleed Current Visit: No Status: Acute Plan to address problem: Management as per GI. Subjective Date of service: 10/05/18 Principal diagnosis: rectal bleeding, cirrhosis Interval history: Patient awake. Resting on 4 litres O2. and O2 saturation 92%. No acute respiratory distress. Objective Vital Signs - 12hr 10/05/18 10/05/18 10/05/18 04:41 04:42 08:00 Temperature 97.3 F L 97.6 F Pulse Rate 68 Pulse Rate [ 74 Anterior Bilateral Throughout] Pulse Rate [ 80 Throughout] Respiratory 18 24 Rate Respiratory 16 Rate [Anterior Bilateral Throughout] Respiratory 18 Rate [ Throughout] Blood Pressure 117/70 O2 Sat by Pulse 95 Oximetry 10/05/18 10/05/18 10/05/18 09:06 10:13 10:19 Temperature Pulse Rate 80 80 Pulse Rate [ Anterior Bilateral Throughout] Pulse Rate [ Throughout] Respiratory Rate Respiratory Rate [Anterior Bilateral Throughout] Respiratory Rate [ Throughout] Blood Pressure 117/70 117/70 O2 Sat by Pulse 94 Oximetry 10/05/18 11:48 Temperature 96.5 F L Pulse Rate 71 Pulse Rate [ Anterior Bilateral Throughout] Pulse Rate [ Throughout] Respiratory 20 Rate Respiratory Rate [Anterior Bilateral Throughout] Respiratory Rate [ Throughout] Blood Pressure 100/59 O2 Sat by Pulse 92 Oximetry Constitutional: no acute distress, alert Eyes: non-icteric ENT: oropharynx dry Neck: supple, no lymphadenopathy Effort: normal Ascultation: Bilateral: diminished breath sounds Cardiovascular: regular rate and rhythm, other (S1,S2) Gastrointestinal: normoactive bowel sounds, soft, non-tender Integumentary: normal, rash Extremities: no cyanosis, no edema, pulses normal, other (Digital clubbing) Neurologic: normal mental status, non-focal exam, pupils equal and round, motor strength normal and Psychiatric: mood appropriate, affect normal CBC and BMP: 09/29/18 08:48 10/03/18 05:40 ABG, PT/INR, D-dimer: ABG POC ABG pH 7.460 (7.35-7.45) H 09/24/18 17:01 POC ABG pCO2 31.2 (35-45) L 09/24/18 17:01 POC ABG pO2 73 (80-105) L 09/24/18 17:01 POC ABG HCO3 22.1 (22-26 mml/L) 09/24/18 17:01 POC ABG Total CO2 23 (23-27mmol/L) 09/24/18 17:01 POC ABG O2 Sat 95 09/24/18 17:01 PT/INR, D-dimer PT 17.1 Sec. (12.2-14.9) H 09/24/18 05:33 INR 1.31 (0.87-1.13) H 09/24/18 05:33 Abnormal lab findings: Abnormal Labs 09/20/18 09/20/18 09/20/18 17:46 17:46 17:54 RBC MCHC RDW 19.8 H Plt Count Lymph % (Auto) Mason % (Auto) Lymph # Seg Neutrophils % Seg Neuts % (Manual) Lymphocytes % (Manual) Monocytes % (Manual) Nucleated RBC % Lymphocytes # (Manual) Monocytes # (Manual) PT 17.5 H INR 1.35 H POC ABG pH POC ABG pCO2 POC ABG pO2 Sodium Potassium Chloride BUN Creatinine 0.6 L Glucose POC Glucose Calcium Direct Bilirubin AST Alkaline Phosphatase Ammonia Total Protein Albumin 3.7 L 09/20/18 09/22/18 09/23/18 17:55 12:16 07:01 RBC MCHC RDW Plt Count Lymph % (Auto) Mason % (Auto) Lymph # Seg Neutrophils % Seg Neuts % (Manual) Lymphocytes % (Manual) Monocytes % (Manual) Nucleated RBC % Lymphocytes # (Manual) Monocytes # (Manual) PT INR POC ABG pH POC ABG pCO2 POC ABG pO2 Sodium Potassium Chloride BUN Creatinine Glucose POC Glucose Calcium Direct Bilirubin AST Alkaline Phosphatase Ammonia 88.0 H 134.0 H 106.0 H Total Protein Albumin 09/23/18 09/23/1809/24/19 09:57 09:57 05:33 RBC MCHC RDW 19.9 H Plt Count Lymph % (Auto) Mason % (Auto) Lymph # Seg Neutrophils % Seg Neuts % (Manual) Lymphocytes % (Manual) Monocytes % (Manual) Nucleated RBC % Lymphocytes # (Manual) Monocytes # (Manual) PT 17.1 H INR 1.31 H POC ABG pH POC ABG pCO2 POC ABG pO2 Sodium Potassium 3.5 L Chloride BUN Creatinine 0.5 L Glucose 157 H POC Glucose Calcium 8.0 L Direct Bilirubin AST Alkaline Phosphatase Ammonia Total Protein 6.0 L Albumin 3.2 L 09/24/18 09/24/18 09/24/18 05:33 05:33 17:01 RBC MCHC RDW Plt Count Lymph % (Auto) Mason % (Auto) Lymph # Seg Neutrophils % Seg Neuts % (Manual) Lymphocytes % (Manual) Monocytes % (Manual) Nucleated RBC % Lymphocytes # (Manual) Monocytes # (Manual) PT INR POC ABG pH 7.460 H POC ABG pCO2 31.2 L POC ABG pO2 73 L Sodium Potassium Chloride BUN 6 L Creatinine 0.5 L Glucose 161 H POC Glucose Calcium Direct Bilirubin AST Alkaline Phosphatase Ammonia 77.0 H Total Protein Albumin 09/26/18 09/26/18 09/26/18 06:56 06:56 06:56 RBC MCHC RDW 19.6 H Plt Count 137 L Lymph % (Auto) Mason % (Auto) Lymph # Seg Neutrophils % Seg Neuts % (Manual) Lymphocytes % (Manual) Monocytes % (Manual) Nucleated RBC % Lymphocytes # (Manual) Monocytes # (Manual) PT INR POC ABG pH POC ABG pCO2 POC ABG pO2 Sodium 136 L Potassium Chloride BUN Creatinine 0.4 L Glucose 130 H POC Glucose Calcium 8.3 L Direct Bilirubin AST 41 H Alkaline Phosphatase 133 H Ammonia 92.0 H Total Protein 5.9 L Albumin 3.1 L 09/27/18 09/27/18 09/29/18 05:43 05:43 08:48 RBC 3.53 L MCHC 35 H RDW 19.3 H Plt Count 122 L Lymph % (Auto) 6.9 L Mason % (Auto) 9.5 H Lymph # 0.5 L Seg Neutrophils % 82.4 H Seg Neuts % (Manual) Lymphocytes % (Manual) Monocytes % (Manual) Nucleated RBC % Lymphocytes # (Manual) Monocytes # (Manual) PT INR POC ABG pH POC ABG pCO2 POC ABG pO2 Sodium Potassium Chloride BUN Creatinine Glucose POC Glucose Calcium Direct Bilirubin 0.4 H AST Alkaline Phosphatase 169 H Ammonia 65.0 H Total Protein 5.6 L Albumin 2.9 L 09/29/18 09/29/18 10/01/18 08:48 08:48 07:26 RBC 3.50 L MCHC RDW 20.3 H Plt Count 128 L Lymph % (Auto) Mason % (Auto) Lymph # Seg Neutrophils % Seg Neuts % (Manual) 80.0 H Lymphocytes % (Manual) 7.0 L Monocytes % (Manual) 11.0 H Nucleated RBC % 1.0 H Lymphocytes # (Manual) 0.6 L Monocytes # (Manual) 1.0 H PT INR POC ABG pH POC ABG pCO2 POC ABG pO2 Sodium 133 L Potassium 3.4 L Chloride 97.7 L BUN Creatinine 0.4 L Glucose 147 H POC Glucose Calcium 7.7 L Direct Bilirubin AST Alkaline Phosphatase 185 H Ammonia 72.0 H Total Protein 5.1 L Albumin 2.4 L 10/01/18 10/02/18 10/02/18 07:26 12:29 17:03 RBC MCHC RDW Plt Count Lymph % (Auto) Mason % (Auto) Lymph # Seg Neutrophils % Seg Neuts % (Manual) Lymphocytes % (Manual) Monocytes % (Manual) Nucleated RBC % Lymphocytes # (Manual) Monocytes # (Manual) PT INR POC ABG pH POC ABG pCO2 POC ABG pO2 Sodium Potassium Chloride BUN Creatinine Glucose POC Glucose 137 H 130 H Calcium Direct Bilirubin AST Alkaline Phosphatase Ammonia 82.0 H Total Protein Albumin 10/03/18 10/03/18 10/03/18 05:40 07:53 11:36 RBC MCHC RDW Plt Count Lymph % (Auto) Mason % (Auto) Lymph # Seg Neutrophils % Seg Neuts % (Manual) Lymphocytes % (Manual) Monocytes % (Manual) Nucleated RBC % Lymphocytes # (Manual) Monocytes # (Manual) PT INR POC ABG pH POC ABG pCO2 POC ABG pO2 Sodium Potassium Chloride 109.7 H BUN Creatinine 0.4 L Glucose 110 H POC Glucose 122 H 188 H Calcium Direct Bilirubin AST Alkaline Phosphatase 191 H Ammonia Total Protein 5.7 L Albumin 2.7 L Chest x-ray: report reviewed, image reviewed Additional Studies: Chest Xray 10/04/2018 [facility] CHEST: HISTORY: Atelectasis, abnormal chest x-ray The left lower lobe opacity has decreased by 25% since 09/30/18. This could represent atelectatic changes or residual infiltrate. The remainder of the lungs are clear. Heart size is within normal limits. A right arm PICC remains in good position. IMPRESSION: Mild improvement in the left lower lobe opacity since 09/30/18. Allied health notes reviewed: nursing
[2018-10-05] MEDS: SODIUM CHLORIDE FLUSH SYRINGE 10 ML IV SCH (16:03)
[2018-10-05 17:47] VITALS: BP 108/57
== END 2018-10-05 18:45 | DRG 871 ==
LOC: ED 16:55 → 3A 19:19 → IMCU 09-24 13:30 → 3A 09-27 12:05
PROVIDERS: ADMIT Internal Medicine; ATTEND Internal Medicine
PROC: 05HY33Z Insertion of Infusion Device into Upper Vein, Percutaneous Approach (ICD-10-PCS; principal; 2018-09-28)
DX: A41.02 Sepsis due to Methicillin resistant Staphylococcus aureus (principal); J96.01 Acute respiratory failure with hypoxia; J18.9 Pneumonia, unspecified organism; I85.11 Secondary esophageal varices with bleeding; K72.90 Hepatic failure, unspecified without coma; K92.2 Gastrointestinal hemorrhage, unspecified; I25.10 Atherosclerotic heart disease of native coronary artery without angina pectoris; E03.9 Hypothyroidism, unspecified; F03.90 Unspecified dementia, unspecified severity, without behavioral disturbance, psychotic disturbance, mood disturbance, and anxiety; I10 Essential (primary) hypertension; J44.0 Chronic obstructive pulmonary disease with (acute) lower respiratory infection; F10.10 Alcohol abuse, uncomplicated; G40.909 Epilepsy, unspecified, not intractable, without status epilepticus; K70.30 Alcoholic cirrhosis of liver without ascites; K76.6 Portal hypertension; R13.10 Dysphagia, unspecified; D75.9 Disease of blood and blood-forming organs, unspecified; D73.1 Hypersplenism; K21.9 Gastro-esophageal reflux disease without esophagitis; M19.90 Unspecified osteoarthritis, unspecified site; Z79.899 Other long term (current) drug therapy; Z79.82 Long term (current) use of aspirin; Z86.73 Personal history of transient ischemic attack (TIA), and cerebral infarction without residual deficits; Z90.710 Acquired absence of both cervix and uterus
CPT/HCPCS: 36415; 71045; 71275; 74018; 76700; 80048; 80053; 80076; 81001; 82140; 82271; 82550; 82803; 82962; 85007; 85014; 85018; 85025; 85027; 85610; 85730; 86850; 86900; 86901; 87040; 87076; 87186; 93005; 93010; 93308; 93321; 93325; 94640; 94760; G0378; C9113; J0692; J0878; J1200; J1953; J2930; J3370; J7030; J7050; Q9967

== ENCOUNTER 2018-11-08 11:13 | Inpatient (IN) | payer MEDICAID ==
[2018-11-08] MEDS ORDERED: NACL 0.9% 1000 ML IV ONE (11:18)
--- NOTE | 2018-11-08 11:23 | Emergency Department Report ---
ED Neuro Deficit HPI - General Stated Complaint: AMS Time Seen by Provider: 11/08/18 11:17 - History of Present Illness Initial Comments: [facility] Date of Service: 11/08/18 Impression: Altered mental status: no focal deficits seen on exam. Differential would include hepatic encephalopathy vs post ictal from seizure vs other metabolic or infectious process. - - - Not a tpa candidate due to: unclear last normal and no focal deficits on exam Presentation is not suggestive of Large Vessel Occlusive Disease. Thrombectomy would not be recommended. Differential Diagnosis: 1. Cardioembolic 2. Small vessel disease/lacune 3. Thromboembolic, [id number] mechanism 4. Hypercoagulable state-related infarct 5. Transient ischemic attack Comments: LKN: last night Door time: 11:13 [facility] contacted: 11:08 [facility] at bedside:11:11 NIHSS assessment time: 11:13 Recommendations: -Metabolic infectious work up -Continue hoe AEDs -Telemetry -Glucose control per primary team, avoid hypo- and hyperglycemia -DVT prophylaxis -PT/OT/Speech Discussed with ED MD Please call with questions Katherine Garcia, DO [employer] --------- CC altered mental status History of Present Illness 62 yo F with history of dementia, CAD, liver cirrhosis, hepatic encephalopathy, seizures, cerebral aneurysms and brain injury who is presenting from her facility with altered mental status. Her last known normal was sometime last night. No clear time identified. Recent admission in 09/2018 for respiratory issues and hepatic encephalopathy. Diagnostic: CT head: pending Exam: NIHSS score: 13 Medical Decision Making: - Extensive number of diagnosis or management options are considered above. - Extensive amount of complex data reviewed. - High risk of complication and/or morbidity or mortality are associated with differential diagnostic considerations above. - There may be Uncertain outcome and increased probability of prolonged functional impairment or high probability of severe prolonged functional impairment associated with some of these differential diagnosis. Medical Data Reviewed: 1.Data reviewed include clinical labs, radiology, Medical Tests; 2.Tests results discussed w/performing or interpreting physician; 3.Obtaining/reviewing old medical records; 4.Obtaining case history from another source; 5.Independent review of image, tracing or specimen. Patient was informed the Neurology Consult would happen via TeleHealth consult by way of interactive audio and video telecommunications and consented to receiving care in this manner. - Related Data Home Medications: Home Medications Medication Instructions Recorded Confirmed Last Taken Folic Acid [Folvite] 1 mg PO QDAY 11/02/13 09/22/18 06/22/17 Multivitamin [Multi-Vitamin Daily] 1 each PO DAILY 11/02/13 09/22/18 06/22/17 Aspirin [Aspirin BABY CHEW TAB] 1 tab PO DAILY 05/10/14 09/22/18 06/22/17 Furosemide [Lasix TAB] 10 mg PO QDAY 08/11/17 09/22/18 Unknown Fluticasone [Flonase] 1 spray NS QDAY 09/22/18 09/22/18 Unknown Propranolol [Inderal] 40 mg PO QDAY 09/22/18 09/22/18 Unknown Previous Rx's Medication Instructions Recorded Last Taken Type Plavix 75 mg PO DAILY #30 08/16/17 Unknown Rx Thiamine [Vitamin B-1] 100 mg PO QDAY #30 tablet 08/16/17 Unknown Rx lamoTRIgine [LaMICtal] 25 mg PO BID #50 tablet 08/16/17 Unknown Rx traZODone [Desyrel] 50 mg PO QHS PRN #30 tablet 08/16/17 Unknown Rx Rifaximin [Xifaxan] 550 mg PO BID #60 tablet 07/30/18 Unknown Rx Spironolactone [Aldactone] 50 mg PO QDAY #30 tablet 07/30/18 Unknown Rx ALBUTEROL NEB's [Proventil 0.083% 2.5 mg IH Q6HRT PRN #90 nebu 08/04/18 Unknown Rx NEBS] Ipratropium/Albuterol Sulfate 1 ampul IH TIDRT #90 ampul.neb 08/04/18 Unknown Rx [DUONEB *Not for PRN Use*] Midodrine [Proamatine] 5 mg PO TID@0800,1200,1600 #90 08/04/18 Unknown Rx tablet DAPTOmycin 366 mg IV Q24H vial 10/05/18 Unknown Rx HYDROcodone/APAP 10-325 [Brayton 1 each PO Q6HR PRN #7 tablet 10/05/18 Unknown Rx 10/325] Lactulose [Cephulac] 30 gm PO TID oral.liqd 10/05/18 Unknown Rx Levothyroxine [Synthroid] 75 mcg PO DAILY@0600 tablet 10/05/18 Unknown Rx Multivitamin Tab [Multiple Vitamin 1 each PO DAILY tablet 10/05/18 Unknown Rx TAB (Theragran)] levETIRAcetam [Keppra] 1,500 mg PO BID oral.liqd 10/05/18 Unknown Rx Allergies/Adverse Reactions: Allergies Allergy/AdvReac Type Severity Reaction Status Date / Time No Known Allergies Allergy Verified 09/20/18 17:09 ED Review of Systems ROS: Stated complaint: AMS Other details as noted in HPI ED Past Medical Hx - Past Medical History Hx Hypertension: Yes Hx CVA: Yes () Hx Congestive Heart Failure: No Hx Diabetes: No Hx Deep Vein Thrombosis: No Hx GERD: Yes Hx Liver Disease: Yes Hx Sickle Cell Disease: No Hx Arthritis: Yes Hx Seizures: Yes Hx Psychiatric Treatment: Yes (bipolar) Hx Asthma: No Hx COPD: No Hx Dementia: Yes Additional medical history: Thrombocytopenia, Alcohol- induced persisting dementia, anneurysm x2, ETOH abuse, unspecified brain imjury - Surgical History Hx Pacemaker: No Hx Internal Defibrillator: No Additional Surgical History: Brain aneurysm x 2Hysterectomy 11/21/13 - Social History Smoking Status: Never Smoker - Medications Home Medications: Home Medications Medication Instructions Recorded Confirmed Last Taken Type Folic Acid [Folvite] 1 mg PO QDAY 11/02/13 09/22/18 06/22/17 History Multivitamin [Multi-Vitamin Daily] 1 each PO DAILY 11/02/13 09/22/18 06/22/17 Hi story Aspirin [Aspirin BABY CHEW TAB] 1 tab PO DAILY 05/10/14 09/22/18 06/22/17 History Furosemide [Lasix TAB] 10 mg PO QDAY 08/11/17 09/22/18 Unknown History Plavix 75 mg PO DAILY #30 08/16/17 09/22/18 Unknown Rx Thiamine [Vitamin B-1] 100 mg PO QDAY #30 tablet 08/16/17 09/22/18 Unknown Rx lamoTRIgine [LaMICtal] 25 mg PO BID #50 tablet 08/16/17 09/22/18 Unknown Rx traZODone [Desyrel] 50 mg PO QHS PRN #30 tablet 08/16/17 09/22/18 Unknown Rx Rifaximin [Xifaxan] 550 mg PO BID #60 tablet 07/30/18 09/22/18 Unknown Rx Spironolactone [Aldactone] 50 mg PO QDAY #30 tablet 07/30/18 09/22/18 Unknown Rx ALBUTEROL NEB's [Proventil 0.083% 2.5 mg IH Q6HRT PRN #90 nebu 08/04/18 09/22/18 Unknown Rx NEBS] Ipratropium/Albuterol Sulfate 1 ampul IH TIDRT #90 ampul.neb 08/04/18 09/22/18 Unknown Rx [DUONEB *Not for PRN Use*] Midodrine [Proamatine] 5 mg PO TID@0800,1200,1600 #90 08/04/18 09/22/18 Unknown Rx tablet Fluticasone [Flonase] 1 spray NS QDAY 09/22/18 09/22/18 Unknown History Propranolol [Inderal] 40 mg PO QDAY 09/22/18 09/22/18 Unknown History DAPTOmycin 366 mg IV Q24H vial 10/05/18 Unknown Rx HYDROcodone/APAP 10-325 [Brayton 1 each PO Q6HR PRN #7 tablet 10/05/18 Unknown Rx 10/325] Lactulose [Cephulac] 30 gm PO TID oral.liqd 10/05/18 Unknown Rx Levothyroxine [Synthroid] 75 mcg PO DAILY@0600 tablet 10/05/18 Unknown Rx Multivitamin Tab [Multiple Vitamin 1 each PO DAILY tablet 10/05/18 Unknown Rx TAB (Theragran)] levETIRAcetam [Keppra] 1,500 mg PO BID oral.liqd 10/05/18 Unknown Rx ED Neuro Physical Exam - General Suspected Stroke: No - NIHSS Assessment Interval: Baseline 1a. Level of Consciousness: alert/keenly responsive 1b. LOC Questions: answers no questions correctly 1c. LOC Commands: performs no tasks correctly 2. Best Gaze: normal 3. Visual: no visual loss 4. Facial Palsy: normal symmetrical movement 5b. Motor Arm Right: drift 5a. Motor Arm Left: drift 6a. Motor Leg Left: drift 6b. Motor Leg Right: drift 7. Limb Ataxia: absent 8. Sensory: normal 9. Best Language: mute/global aphasia 10. Dysarthria: severe dysarthria 11. Extinction/Inattention: no abnormality Total Score: 13 Stroke Severity: Moderate Stroke Critical care attestation.: If time is entered above; I have spent that time in minutes in the direct care of this critically ill patient, excluding procedure time. ED Disposition Clinical Impression: Altered mental state Disposition: DC-09 OP ADMIT IP TO THIS HOSP Is pt being admited?: Yes Condition: Stable
--- NOTE | 2018-11-08 11:23 | Emergency Department Report ---
ED General Adult HPI - General Chief complaint: Weakness Stated complaint: AMS Time Seen by Provider: 11/08/18 11:17 Source: EMS (verbal report received from EMS.ems notes not available at time of chart dictation), RN notes reviewed, old records reviewed Mode of arrival: Stretcher Limitations: Altered Mental Status, Physical Limitation - History of Present Illness Initial comments: This is a 62-year-old female. The patient is not known to this provider previously. Patient has a history of cirrhosis, esophageal varices, history of MRSA bacteremia, history of heart disease, hypertension, COPD, hypothyroidism, dementia, seizures, brain aneurysm Patient brought to the hospital today by emergency medical services for a code stroke and altered mental status. As per verbal report from EMS, last known well time was last night. We do not have an exact less than well time. The patient is not currently accompanied by any friends or family at this time. EMS reports normal Accu-Chek in the field, and hypoxia. In the emergency room, patient is somnolence and minimally arousable. She is seen in evaluation by consulting stroke neurology, please see their note for their specific impression, however, given clinical history, we both agree patient is not a TPA candidate, as her last known well time is not known. Patient required intubation, and was intubated by myself with a 7.5 endotracheal tube. No additional history is available at this time. -: unknown Radiation: other Quality: other Improves with: other Worsens with: other Associated Symptoms: other - Related Data Home Medications Medication Instructions Recorded Confirmed Last Taken Folic Acid [Folvite] 1 mg PO QDAY 11/02/13 11/08/18 06/22/17 Multivitamin [Multi-Vitamin Daily] 1 each PO DAILY 11/02/13 11/08/18 06/22/17 Aspirin [Aspirin BABY CHEW TAB] 1 tab PO DAILY 05/10/14 11/08/18 06/22/17 Fluticasone [Flonase] 1 spray NS QDAY 09/22/18 11/08/18 Unknown Propranolol [Inderal] 40 mg PO QDAY 09/22/18 11/08/18 Unknown Famotidine [Pepcid] 40 mg PO QHS 11/08/18 11/08/18 Unknown Spironolactone [Aldactone] 100 mg PO QDAY 11/08/18 11/08/18 Unknown Previous Rx's Medication Instructions Recorded Last Taken Type Plavix 75 mg PO DAILY #30 08/16/17 Unknown Rx Thiamine [Vitamin B-1] 100 mg PO QDAY #30 tablet 08/16/17 Unknown Rx lamoTRIgine [LaMICtal] 25 mg PO BID #50 tablet 08/16/17 Unknown Rx Rifaximin [Xifaxan] 550 mg PO BID #60 tablet 07/30/18 Unknown Rx ALBUTEROL NEB's [Proventil 0.083% 2.5 mg IH Q6HRT PRN #90 nebu 08/04/18 Unknown Rx NEBS] Ipratropium/Albuterol Sulfate 1 ampul IH TIDRT #90 ampul.neb 08/04/18 Unknown Rx [DUONEB *Not for PRN Use*] Lactulose [Cephulac] 30 gm PO TID oral.liqd 10/05/18 Unknown Rx Levothyroxine [Synthroid] 75 mcg PO DAILY@0600 tablet 10/05/18 Unknown Rx levETIRAcetam [Keppra] 1,500 mg PO BID oral.liqd 10/05/18 Unknown Rx Allergies Allergy/AdvReac Type Severity Reaction Status Date / Time No Known Allergies Allergy Verified 09/20/18 17:09 ED Review of Systems ROS: Stated complaint: AMS Other details as noted in HPI Comment: Unobtainable due to pts medical conditions ED Past Medical Hx - Past Medical History Hx Hypertension: Yes Hx CVA: Yes () Hx Congestive Heart Failure: No Hx Diabetes: No Hx Deep Vein Thrombosis: No Hx GERD: Yes Hx Liver Disease: Yes Hx Sickle Cell Disease: No Hx Arthritis: Yes Hx Seizures: Yes Hx Psychiatric Treatment: Yes (bipolar) Hx Asthma: No Hx COPD: No Hx Dementia: Yes Additional medical history: Thrombocytopenia, Alcohol- induced persisting dementia, anneurysm x2, ETOH abuse, unspecified brain imjury - Surgical History Hx Pacemaker: No Hx Internal Defibrillator: No Additional Surgical History: Brain aneurysm x 2Hysterectomy 11/21/13 - Social History Smoking Status: Never Smoker - Medications Home Medications: Home Medications Medication Instructions Recorded Confirmed Last Taken Type Folic Acid [Folvite] 1 mg PO QDAY 11/02/13 11/08/18 06/22/17 History Multivitamin [Multi-Vitamin Daily] 1 each PO DAILY 11/02/13 11/08/18 06/22/17 History Aspirin [Aspirin BABY CHEW TAB] 1 tab PO DAILY 05/10/14 11/08/18 06/22/17 Hi story Plavix 75 mg PO DAILY #30 08/16/17 11/08/18 Unknown Rx Thiamine [Vitamin B-1] 100 mg PO QDAY #30 tablet 08/16/17 11/08/18 Unknown Rx lamoTRIgine [LaMICtal] 25 mg PO BID #50 tablet 08/16/17 11/08/18 Unknown Rx Rifaximin [Xifaxan] 550 mg PO BID #60 tablet 07/30/18 11/08/18 Unknown Rx ALBUTEROL NEB's [Proventil 0.083% 2.5 mg IH Q6HRT PRN #90 nebu 08/04/18 11/08/18 Unknown Rx NEBS] Ipratropium/Albuterol Sulfate 1 ampul IH TIDRT #90 ampul.neb 08/04/18 11/08/18 Unknown Rx [DUONEB *Not for PRN Use*] Fluticasone [Flonase] 1 spray NS QDAY 09/22/18 11/08/18 Unknown History Propranolol [Inderal] 40 mg PO QDAY 09/22/18 11/08/18 Unknown History Lactulose [Cephulac] 30 gm PO TID oral.liqd 10/05/18 11/08/18 Unknown Rx Levothyroxine [Synthroid] 75 mcg PO DAILY@0600 tablet 10/05/18 11/08/18 Unknown Rx levETIRAcetam [Keppra] 1,500 mg PO BID oral.liqd 10/05/18 11/08/18 Unknown Rx Famotidine [Pepcid] 40 mg PO QHS 11/08/18 11/08/18 Unknown History Spironolactone [Aldactone] 100 mg PO QDAY 11/08/18 11/08/18 Unknown History ED Physical Exam - General General appearance: lethargic - Head Head exam: Present: normocephalic, other (facial ecchymoses noted) - Eye Eye exam: Present: normal appearance - ENT ENT exam: Present: mucous membranes dry, normal external ear exam - Neck Neck exam: Present: normal inspection. Absent: tenderness, meningismus - Respiratory Respiratory exam: Present: normal lung sounds bilaterally, decreased breath sounds. Absent: respiratory distress, wheezes, rales, rhonchi, stridor - Cardiovascular Cardiovascular Exam: Present: regular rate, normal rhythm, normal heart sounds. Absent: bradycardia, tachycardia, irregular rhythm, systolic murmur, diastolic murmur, rubs, gallop - GI/Abdominal GI/Abdominal exam: Present: soft. Absent: tenderness, guarding, rebound, rigid, pulsatile mass - Rectal Rectal exam: Present: normal inspection, normal rectal tone, heme (-) stool, other (chaperoned by nurse Graciela Carrasco). Absent: heme (+) stool, black stool, bloody stool, fecal impaction, hemorrhoids - Extremities Exam Extremities exam: Present: normal inspection (moves 4 extremities and responds to painful stimuli), pedal edema, other (2+ pulses noted in the bilateral upper, lower extremities. Compartments soft. No long bony tenderness. The pelvis is stable.). Absent: calf tenderness - Back Exam Back exam: Present: normal inspection. Absent: tenderness, CVA tenderness (R), CVA tenderness (L), paraspinal tenderness, vertebral tenderness - Neurological Exam Neurological exam: Present: altered, other (patient has 5 out of 5 strength in 4 extremities, and is responsive to painful stimuli. Makes nonsensical sounds when stimulated. There is no facial droop. Detailed neurologic examination not possible secondary to altered mental status and obtundation) - Skin Skin exam: Present: warm, ecchymosis ED Course Vital Signs 11/08/18 11/08/18 11/08/18 11:23 11:30 11:38 Temperature 96.4 F L Pulse Rate 58 L 65 Pulse Rate [ From Monitor] Respiratory 15 12 Rate Blood Pressure Blood Pressure 97/50 91/64 [Right] O2 Sat by Pulse 98 100 Oximetry 11/08/18 11/08/18 11/08/18 11:39 12:00 12:36 Temperature Pulse Rate 78 59 L 60 Pulse Rate [ From Monitor] Respiratory 15 15 Rate Blood Pressure Blood Pressure 99/59 116/68 [Right] O2 Sat by Pulse 99 96 98 Oximetry 11/08/18 11/08/18 11/08/18 13:45 13:57 13:58 Temperature Pulse Rate 52 L 87 Pulse Rate [ 51 L From Monitor] Respiratory 15 12 Rate Blood Pressure 116/64 Blood Pressure 120/68 [Right] O2 Sat by Pulse 98 95 98 Oximetry 11/08/18 14:09 Temperature Pulse Rate 52 L Pulse Rate [ From Monitor] Respiratory 15 Rate Blood Pressure Blood Pressure 120/64 [Right] O2 Sat by Pulse 100 Oximetry - Reevaluation(s) Reevaluation #1: 11/08/18 12:47 Differential diagnosis, including but not limited to: Hepatic encephalopathy, pneumonia, urinary tract infection, subacute stroke, seizure, postictal state, electrolyte derangement Assessment and plan: 62-year-old female, not a TPA candidate as last well time is not known, found to be hyperammonemic, most likely experiencing altered mental status secondary to hepatic encephalopathy. Patient is currently intubated. Laboratory studies reviewed and appreciated. She is afebrile at this time. X-ray of the chest confirms tube placement. Case discussed with critical care physician on-call, Dr. Muro, who agrees to follow in consultation in the intensive care unit. Rectal lactulose will be ordered. We will admit the patient to the medical service once initial diagnostics have resulted. Reevaluation #2: 11/08/18 13:52 CT scan of the face, neck, brain negative for acute disease. Angiogram pending. Urinalysis reviewed and appreciated. The son appeared to be consistent with urinary tract infection. 3+ bacteria appreciated. Dr. Montes De Oca to admit patient to the medical service. Reevaluation #3: 11/08/18 14:24 CT angiogram neck pending. CT angiogram of brain negative for significant large vessel occlusion or significant findings. Reevaluation #4: 11/08/18 19:30 CTA neck did not demonstrate large vessel occlusion. Incidental findings noted. - Intubation Time Out Performed: No (emergency situation) Sedative: Etomidate Mg Given: 20 Paralytic: Rocuronium Mg Given: 100 Laryngoscope: Bella Size: 3 Assist Device Used: Bougie ET Tube Size: 7.5 Tube Secured Depth (cm): 23 Tube Secured Location: teeth Tube Placement Confirmation: equal breath sounds bilat, no breath sounds over epi, confirmation by capnometr Patient Tolerated Procedure: well Intubation Complications: difficult intubation Additional Comments: Patient placed on nasal cannula at 15 L/m. Receives [id number] ventilation. Intubated using bougie catheter for assistance, Bella 3 laryngoscope, and 7.5 endotracheal tube. Patient does not desaturate during procedure. ED Medical Decision Making - Lab Data Result diagrams: 11/08/18 11:47 11/08/18 11:47 Vital Signs - 24 hr 11/08/18 11/08/18 11/08/18 11:23 11:30 11:38 Temperature 96.4 F L Pulse Rate 58 L 65 Respiratory 15 12 Rate Blood Pressure 97/50 91/64 [Right] O2 Sat by Pulse 98 100 Oximetry 11/08/18 11/08/18 11:39 12:00 Temperature Pulse Rate 78 59 L Respiratory 15 Rate Blood Pressure 99/59 [Right] O2 Sat by Pulse 99 96 Oximetry Lab Results 11/08/18 11/08/18 11/08/18 Range/Units 11:47 11:47 11:47 WBC 3.4 L (4.5-11.0) K/mm3 RBC 4.04 (3.65-5.03) M/mm3 Hgb 10.5 (10.1-14.3) gm/dl Hct 32.7 (30.3-42.9) % MCV 81 (79-97) fl MCH 26 L (28-32) pg MCHC 32 (30-34) % RDW 21.6 H (13.2-15.2) % Plt Count 149 (140-440) K/mm3 [place] % (Auto) [employer]ker Sodium 140 (137-145) mmol/L Potassium 3.6 (3.6-5.0) mmol/L Chloride 102.3 (98-107) mmol/L Carbon Dioxide 26 (22-30) mmol/L Anion Gap 15 mmol/L BUN 9 (7-17) mg/dL Creatinine 0.6 L (0.7-1.2) mg/dL Estimated GFR > 60 ml/min BUN/Creatinine Ratio 15 % Glucose 130 H (65-100) mg/dL Lactic Acid 1.50 (0.7-2.0) mmol/L Calcium 8.5 (8.4-10.2) mg/dL Magnesium 1.80 (1.7-2.3) mg/dL Total Bilirubin 1.50 H (0.1-1.2) mg/dL AST 30 (5-40) units/L ALT 17 (7-56) units/L Alkaline Phosphatase 140 H (35-129) units/L Ammonia (25-60) umol/L Total Creatine Kinase 27 L (30-135) units/L CK-MB (CK-2) < 1.0 (0.0-4.0) ng/mL CK-MB (CK-2) Rel Index 3.7 (0-4) Troponin T < 0.010 (0.00-0.029) ng/mL Total Protein 6.0 L (6.3-8.2) g/dL Albumin 3.0 L (3.9-5) g/dL Albumin/Globulin Ratio 1.0 % Urine Bilirubin (Negative) Urine RBC (Auto) (0.0-6.0) /HPF U Epithel Cells (Auto) (0-13.0) /HPF Plasma/Serum Alcohol (0-0.07) % 11/08/18 11/08/18 11/08/18 Range/Units 11:47 11:47 12:00 WBC (4.5-11.0) K/mm3 RBC (3.65-5.03) M/mm3 Hgb (10.1-14.3) gm/dl Hct (30.3-42.9) % MCV (79-97) fl MCH (28-32) pg MCHC (30-34) % RDW (13.2-15.2) % Plt Count (140-440) K/mm3 [place] % (Auto) Sodium (137-145) mmol/L Potassium (3.6-5.0) mmol/L Chloride (98-107) mmol/L Carbon Dioxide (22-30) mmol/L Anion Gap mmol/L BUN (7-17) mg/dL Creatinine (0.7-1.2) mg/dL Estimated GFR ml/min BUN/Creatinine Ratio % Glucose (65-100) mg/dL Lactic Acid (0.7-2.0) mmol/L Calcium (8.4-10.2) mg/dL Magnesium (1.7-2.3) mg/dL Total Bilirubin (0.1-1.2) mg/dL AST (5-40) units/L ALT (7-56) units/L Alkaline Phosphatase (35-129) units/L Ammonia 123.0 H (25-60) umol/L Total Creatine Kinase (30-135) units/L CK-MB (CK-2) (0.0-4.0) ng/mL CK-MB (CK-2) Rel Index (0-4) Troponin T (0.00-0.029) ng/mL Total Protein (6.3-8.2) g/dL Albumin (3.9-5) g/dL Albumin/Globulin Ratio % Urine Bilirubin Neg (Negative) Urine RBC (Auto) 2.0 (0.0-6.0) /HPF U Epithel Cells (Auto) 1.0 (0-13.0) /HPF Plasma/Serum Alcohol < 0.01 (0-0.07) % - EKG Data -: EKG Interpreted by Me EKG shows normal: sinus rhythm Rate: normal - EKG Data When compared to previous EKG there are: no significant change 11/08/18 12:49 EKG shows a sinus rhythm, low voltage, 61 bpm, QTC within normal limits, no end orsement of chest pain, unchanged from prior EKG from September 2018, this EKG is not consistent with ST elevation myocardial infarction. - Radiology Data Radiology results: pending, image reviewed interpreted by me: X-ray of the chest shows appropriate placement of endotracheal tube Critical Care Time: Yes Critical care time in (mins) excluding proc time.: 60 Critical care attestation.: If time is entered above; I have spent that time in minutes in the direct care of this critically ill patient, excluding procedure time. ED Disposition Clinical Impression: Altered mental state, Liver cirrhosis, Hepatic encephalopathy syndrome, Respiratory failure Disposition: 09 OP ADMIT IP TO THIS HOSP Is pt being admited?: Yes Does the pt Need Aspirin: No Condition: Critical
[2018-11-08] MEDS ORDERED: XYLOCAINE CARDIAC IV ONE (11:25)
[2018-11-08] MEDS ORDERED: AMIDATE IV ONE ×2 (11:25→11:29)
[2018-11-08] MEDS ORDERED: ZEMURON IV ONE ×2 (11:25→11:30)
[2018-11-08] MEDS ORDERED: NACL 0.9% 500 ML IV PRN (11:37)
[2018-11-08] MEDS ORDERED: ARTIFICIAL TEARS OPHTH OINT OU PRN (11:37)
[2018-11-08] MEDS ORDERED: VASELINE LIP THERAPY TP PRN (11:37)
[2018-11-08 12:09] LABS: Hematocrit 32.7 % (30.3-42.9); Hemoglobin 10.5 gm/dl (10.1-14.3); Mean Corpuscular HGB Conc 32 % (30-34); Mean Corpuscular Volume 81 fl (79-97); Platelet Count 149 K/mm3 (140-440); Red Blood Count 4.04 M/mm3 (3.65-5.03); Red Cell Distribution Width 21.6 % (13.2-15.2)
[2018-11-08 12:21] LABS: Bacteria,Urine 3+ /HPF (Negative); Bilirubin,Urine NEG (Negative); Blood,Urine NEG (Negative); Color,Urine Amber (Yellow); Mucus,Urine FEW /HPF; Protein,Urine <15 mg/dL mg/dL (Negative); Urobilinogen,Urine < 2.0 mg/dL (<2.0)
[2018-11-08 12:35] LABS: Alanine Aminotransferase 17 units/L (7-56); BUN/Creatinine Ratio 15; Blood Urea Nitrogen 9 mg/dL (7-17); Calcium 8.5 mg/dL (8.4-10.2); Hemolysis Index 25
[2018-11-08 12:37] LABS: Creatine Kinase MB < 1.0 ng/mL (0.0-4.0)
--- NOTE | 2018-11-08 12:50 | XRay Report ---
CHEST 1 VIEW 11/08/2018 11:43 AM INDICATION / CLINICAL INFORMATION: ETT placement. COMPARISON: Chest x-ray on 10/04/2018. FINDINGS: SUPPORT DEVICES: ET tube tip projects about 4 cm above the miguelangel. NG tube is seen exam of the diaphr agm. HEART / MEDIASTINUM: Normal heart size. Atherosclerosis in the thoracic aorta. LUNGS / PLEURA: No significant pulmonary or pleural abnormality. No pneumothorax. ADDITIONAL FINDINGS: No significant additional findings. IMPRESSION: 1. No acute findings. Signer Name: Erick Diamond MD Signed: 11/08/2018 12:46 PM Workstation Name: [id number]
[2018-11-08] MEDS ORDERED: CEPHULAC PR STA (12:52)
[2018-11-08 12:57] LABS: INR 1.45 (0.87-1.13); Partial Thromboplastin Time 30.4 Sec. (24.2-36.6)
--- NOTE | 2018-11-08 13:22 | History and Physical Report ---
History of Present Illness Chief complaint: she was bleeding, and she is confused History of present illness: 62 YO Female Personal Chcf Resident with ESLD complicated by Cirrhosis and Esophageal Varices, ETOH Dependence, HTN, COPD, Dementia, Seizure Disorder, Hypothyroidism, CVA, OA, Bipolar Disorder, GERD presents to ED for evaluation. Pt is intubated and unable to provide history. Pt history taken from EMS, and ED staff, and medical record. As per staff, the patient was in her usual state of health at bedtime which was around 2030 hrs. Pt was found to be confused with decreased level of consciousness. EMS notified and upon arrival the patient was found to be in distress. Pt transported to [facility]. Pt seen and evaluated in ED and found to have Encephalopathy, and Acute Hypoxemic Respiratory Failure and was unable to protect her airway. Pt intubated and placed on vent support. No further history obtainable. Pt admitted to ICU. GI team consulted in ED. Pulmonary team consulted in ED. Prior admission on 09/20/18 reviewed. All listed medication reconciled at time of admission. Past History Past Medical History: CAD, COPD, hypertension, hypothyroidism, seizures, other (Cirrhosis, ETOH Dependence, Dementia) Past Surgical History: hysterectomy, Other (Brain surgery') Social history: single. denies: smoking, alcohol abuse, prescription drug abuse Family history: CAD, hypertension Medications and Allergies Allergies Allergy/AdvReac Type Severity Reaction Status Date / Time No Known Allergies Allergy Verified 09/20/18 17:09 Home Medications Medication Instructions Recorded Confirmed Last Taken Type Folic Acid [Folvite] 1 mg PO QDAY 11/02/13 11/08/18 06/22/17 History Multivitamin [Multi-Vitamin Daily] 1 each PO DAILY 11/02/13 11/08/18 06/22/17 History Aspirin [Aspirin BABY CHEW TAB] 1 tab PO DAILY 05/10/14 11/08/18 06/22/17 History Plavix 75 mg PO DAILY #30 08/16/17 11/08/18 Unknown Rx Thiamine [Vitamin B-1] 100 mg PO QDAY #30 tablet 08/16/17 11/08/18 Unknown Rx lamoTRIgine [LaMICtal] 25 mg PO BID #50 tablet 08/16/17 11/08/18 Unknown Rx Rifaximin [Xifaxan] 550 mg PO BID #60 tablet 07/30/18 11/08/18 Unknown Rx ALBUTEROL NEB's [Proventil 0.083% 2.5 mg IH Q6HRT PRN #90 nebu 08/04/18 11/08/18 Unknown Rx NEBS] Ipratropium/Albuterol Sulfate 1 ampul IH TIDRT #90 ampul.neb 08/04/18 11/08/18 Unknown Rx [DUONEB *Not for PRN Use*] Fluticasone [Flonase] 1 spray NS QDAY 09/22/18 11/08/18 Unknown History Propranolol [Inderal] 40 mg PO QDAY 09/22/18 11/08/18 Unknown History Lactulose [Cephulac] 30 gm PO TID oral.liqd 10/05/18 11/08/18 Unknown Rx Levothyroxine [Synthroid] 75 mcg PO DAILY@0600 tablet 10/05/18 11/08/18 Unknown Rx levETIRAcetam [Keppra] 1,500 mg PO BID oral.liqd 10/05/18 11/08/18 Unknown Rx Famotidine [Pepcid] 40 mg PO QHS 11/08/18 11/08/18 Unknown History Spironolactone [Aldactone] 100 mg PO QDAY 11/08/18 11/08/18 Unknown History Active Meds: Active Medications Hydrophilic Ointment (Vaseline Lip Therapy) 1 applic TP Q2HR PRN PRN Reason: Dry Lips Multi-Ingred Cream/Lotion/Oil/Oint (Artificial Tears Ophth Oint) 1 applic OU Q4HR PRN PRN Reason: Dry Eye(s) Sodium Chloride (Nacl 0.9% 500 Ml) 5 ml IV DIRECT PRN PRN Reason: ARTERIAL RAYON TESTER Review of Systems ROS unobtainable: due to endotracheal tube Exam - Constitutional Vitals: Temp Pulse Resp BP Pulse Ox 96.4 F L 60 15 116/68 98 11/08/18 11:38 11/08/18 12:36 11/08/18 12:36 11/08/18 12:36 11/08/18 12:36 General appearance: Present: severe distress - EENT Eyes: Present: miosis ENT: hearing intact, clear oral mucosa - Neck Neck: Present: supple, normal ROM - Respiratory Respiratory effort: labored Respiratory: bilateral: diminished, rhonchi - Cardiovascular Heart Sounds: Present: S1 & S2. Absent: rub, click - Extremities Extremities: pulses symmetrical, No edema Peripheral Pulses: within normal limits - Abdominal General gastrointestinal: Present: soft, non-tender, non-distended, normal bowel sounds Female genitourinary: Present: normal - Integumentary Integumentary: Present: clear, warm, dry - Musculoskeletal Musculoskeletal: generalized weakness - Psychiatric Psychiatric: no appropriate mood/affect, no intact judgment & insight, no memory intact - Neurologic Neurologic: no CNII-XII intact, no gait normal Results - Labs CBC & Chem 7: 11/08/18 11:47 11/08/18 11:47 Labs: Abnormal lab results 11/08/18 11/08/18 11/08/18 Range/Units 11:47 11:47 11:47 WBC 3.4 L (4.5-11.0) K/mm3 MCH 26 L (28-32) pg RDW 21.6 H (13.2-15.2) % PT 17.3 H (12.2-14.9) Sec. INR 1.45 H (0.87-1.13) Creatinine 0.6 L (0.7-1.2) mg/dL Glucose 130 H (65-100) mg/dL Total Bilirubin 1.50 H (0.1-1.2) mg/dL Alkaline Phosphatase 140 H (35-129) units/L Ammonia (25-60) umol/L Total Creatine Kinase 27 L (30-135) units/L Total Protein 6.0 L (6.3-8.2) g/dL Albumin 3.0 L (3.9-5) g/dL Urine pH (5.0-7.0) 11/08/18 11/08/18 Range/Units 11:47 12:00 WBC (4.5-11.0) K/mm3 MCH (28-32) pg RDW (13.2-15.2) % PT (12.2-14.9) Sec. INR (0.87-1.13) Creatinine (0.7-1.2) mg/dL Glucose (65-100) mg/dL Total Bilirubin (0.1-1.2) mg/dL Alkaline Phosphatase (35-129) units/L Ammonia 123.0 H (25-60) umol/L Total Creatine Kinase (30-135) units/L Total Protein (6.3-8.2) g/dL Albumin (3.9-5) g/dL Urine pH 8.0 H (5.0-7.0) Assessment and Plan - Patient Problems (1) Acute respiratory failure with hypoxia Current Visit: No Status: Acute Plan to address problem: Admit to ICU. Pt intubated, placed on vent support, wean vent as tolerated, Pulmonary team consulted in ED, daily SBT, sedation holiday. The high probability of a clinically significant, sudden or life threatening de terioration of the [pulmonary, ID, GI, renal,neuro] system(s) required my full and direct attention, intervention and personal management. The aggregate critical care time was [65] minutes. This time is in addition to time spent performing reported procedures but includes the following: [x] Data Review and interpretation [x] Patient assessment and monitoring of vital signs [x] Documentation [x] Medication orders and management (2) Hyperammonemia Current Visit: Yes Status: Acute Plan to address problem: Lactulose, lactulose TID, neuro checks, supportive care. (3) Hepatic encephalopathy syndrome Current Visit: Yes Status: Acute Plan to address problem: CT head, neuro check, teleneurology consulted and patient deemed not a candidate for TPA, neuro check, seizure precautions (4) Cirrhosis Current Visit: No Status: Acute Qualifiers: Hepatic cirrhosis type: alcoholic cirrhosis Plan to address problem: Supportive care, ETOH cessation, liver function tests. :POA (5) EtOH dependence Current Visit: Yes Status: Acute Qualifiers: Complication of substance-induced condition: with unspecified complication Plan to address problem: Thiamine, folic acid, multivitamin, etoh cessation:POA (6) Hypothyroid Current Visit: Yes Status: Acute Qualifiers: Hypothyroidism type: unspecified Qualified Code(s): E03.9 - Hypothyroidism, unspecified Plan to address problem: continue synthroid therapy, supportive care. POA (7) COPD (chronic obstructive pulmonary disease) Current Visit: Yes Status: Acute Qualifiers: Chronic bronchitis type: mixed simple and mucopurulent Plan to address problem: supplemental oxygen, nebulizer therapy, wean vent as tolerated. POA (8) CAD (coronary artery disease) Current Visit: Yes Status: Acute Qualifiers: Associated angina: without angina Plan to address problem: supportive care, continue medical management, lipid panel, risk factor reduction:POA (9) Seizure disorder Current Visit: Yes Status: Acute Plan to address problem: continue lamictal, continue keppra, Keppra level, supportive care, neuro checks. (10) DVT prophylaxis Current Visit: No Status: Acute Plan to address problem: SCD to BLE while in bed, hold anticoagulation due to liver failure and risk of bleeding.
--- NOTE | 2018-11-08 13:27 | Cat Scan Report ---
CT head without contrast HISTORY: Stroke symptoms. TECHNIQUE: Axial imaging performed from the skull apex through the skull base without the use of con trast. All CT scans at this location are performed using CT dose reduction for ALARA by means of aut omated exposure control. COMPARISON: None FINDINGS: Parenchyma: No acute intracranial hemorrhage or parenchymal abnormality. There is encephalomalacia i n the right temporoparietal region consistent with old infarction. Ventricles: There is mild diffuse brain atrophy with commensurate ventricular enlargement which is l ikely age appropriate. Soft tissues: Soft tissues including the orbits appear normal. Bones: Old bilateral craniotomy changes are present. Sinuses: There is mild mucosal thickening and several ethmoid air cells. Remaining sinuses and masto id air cells are clear. IMPRESSION: 1. No acute intracranial abnormality. 2. Chronic-appearing changes in the brain. Signer Name: Ottoniel Heard MD Signed: 11/08/2018 1:23 PM Workstation Name: [id number]
--- NOTE | 2018-11-08 13:31 | Cat Scan Report ---
CT CERVICAL SPINE: 11/08/2018 INDICATION / CLINICAL INFORMATION: facial ecchymosis. Injury COMPARISON: None available. FINDINGS: CT images of the cervical spine were obtained. Images are evaluated in the axial, coronal, and sagit cheng planes. There is no evidence of acute abnormality. Slight reversal of cervical lordosis is centered at the C5 level. Degenerative disc space narrowing and endplate irregularity is present at the C3-4, C4-5, and C5-6 le vels. There is some mild ossification of the longitudinal ligament noted. Degenerative sclerotic type changes are present throughout the C3-C5 vertebral bodies. LEVEL BY LEVEL ANALYSIS: . CRANIOCERVICAL JUNCTION: Degenerative joint changes are present at the occipital atlantal joint. Cran iocervical junction is otherwise unremarkable. PARASPINAL STRUCTURES: Unremarkable. Endotracheal tube and nasogastric tube are present.. IMPRESSION: No acute abnormality. Degenerative changes. All CT scans at this location are performed using dose reduction to ALARA by means of automated expos ure control. Signer Name: Reilly Handley MD Signed: 11/08/2018 1:26 PM Workstation Name: [id number]
[2018-11-08] MEDS ORDERED: SODIUM CHLORIDE FLUSH SYRINGE 10 ML IV PRN (13:32)
[2018-11-08] MEDS ORDERED: PROVENTIL IH PRN (13:32)
[2018-11-08 13:33] LABS: Thrombin Time 15.4 Sec. (15.1-19.6)
--- NOTE | 2018-11-08 13:39 | Cat Scan Report ---
CT FACIAL: 11/08/2018 INDICATION / CLINICAL INFORMATION: facial ecchymosis. COMPARISON: None available. FINDINGS: Unenhanced CT images of the facial bones were obtained. Images are evaluated in axial, coronal, and s agittal planes. There is no evidence of acute osseous injury. Some mild mucosal thickening is present in the ethmoid sinuses. The frontal, sphenoid, and maxillary sinuses are clear. Orbital structures are intact. Endotracheal tube and orogastric tube present. IMPRESSION: No significant abnormality. No evidence of acute traumatic injury. All CT scans at this location are performed using dose reduction to ALARA by means of automated expos ure control. Signer Name: Reilly Handley MD Signed: 11/08/2018 1:35 PM Workstation Name: [id number]
[2018-11-08 13:41] LABS: Total Cells Counted 100
[2018-11-08 13:42] LABS: Anisocytosis Few; Poikilocytosis 1+
[2018-11-08 13:43] LABS: Giant Platelets Few; Platelet Estimate Consistent w Auto; Tear Drop Cells Rare
[2018-11-08] MEDS ORDERED: SUBLIMAZE IV PRN (13:51)
--- NOTE | 2018-11-08 13:56 | Consultation ---
History of Present Illness Consult date: 11/08/18 Requesting physician: CHARLOTTE ALEJANDRA Reason for consult: other (Acute Hypoxemic Respiratory Failure) History of present illness: PULMONARY/CCM CONSULT NOTE (Full dictation # [id number]) Please see dictated notes for full details Medications and Allergies Allergies Allergy/AdvReac Type Severity Reaction Status Date / Time No Known Allergies Allergy Verified 09/20/18 17:09 Home Medications Medication Instructions Recorded Confirmed Last Taken Type Folic Acid [Folvite] 1 mg PO QDAY 11/02/13 11/08/18 06/22/17 History Multivitamin [Multi-Vitamin Daily] 1 each PO DAILY 11/02/13 11/08/18 06/22/17 History Aspirin [Aspirin BABY CHEW TAB] 1 tab PO DAILY 05/10/14 11/08/18 06/22/17 History Plavix 75 mg PO DAILY #30 08/16/17 11/08/18 Unknown Rx Thiamine [Vitamin B-1] 100 mg PO QDAY #30 tablet 08/16/17 11/08/18 Unknown Rx lamoTRIgine [LaMICtal] 25 mg PO BID #50 tablet 08/16/17 11/08/18 Unknown Rx Rifaximin [Xifaxan] 550 mg PO BID #60 tablet 07/30/18 11/08/18 Unknown Rx ALBUTEROL NEB's [Proventil 0.083% 2.5 mg IH Q6HRT PRN #90 nebu 08/04/18 11/08/18 Unknown Rx NEBS] Ipratropium/Albuterol Sulfate 1 ampul IH TIDRT #90 ampul.neb 08/04/18 11/08/18 Unknown Rx [DUONEB *Not for PRN Use*] Fluticasone [Flonase] 1 spray NS QDAY 09/22/18 11/08/18 Unknown History Propranolol [Inderal] 40 mg PO QDAY 09/22/18 11/08/18 Unknown History Lactulose [Cephulac] 30 gm PO TID oral.liqd 10/05/18 11/08/18 Unknown Rx Levothyroxine [Synthroid] 75 mcg PO DAILY@0600 tablet 10/05/18 11/08/18 Unknown Rx levETIRAcetam [Keppra] 1,500 mg PO BID oral.liqd 10/05/18 11/08/18 Unknown Rx Famotidine [Pepcid] 40 mg PO QHS 11/08/18 11/08/18 Unknown History Spironolactone [Aldactone] 100 mg PO QDAY 11/08/18 11/08/18 Unknown History Active Meds: Active Medications Albuterol (Proventil) 2.5 mg IH Q3HRT PRN PRN Reason: Shortness Of Breath Fentanyl (Sublimaze) 50 mcg IV Q10MIN PRN PRN Reason: ANALGESIA Fluticasone Propionate (Flonase) 50 mcg NS QDAY [facility] Folic Acid (Folvite) 1 mg PO QDAY [facility] Hydrophilic Ointment (Vaseline Lip Therapy) 1 applic TP Q2HR PRN PRN Reason: Dry Lips Fentanyl Citrate (Fentanyl Drip Premix) 2,000 mcg in 100 mls @ 3.275 mls/hr IV TITR HUONG; Protocol Lactulose (Cephulac) 30 gm PO TID [facility] Lamotrigine (Lamictal) 25 mg PO BID [facility] Levetiracetam (Keppra) 1,500 mg PO BID [facility] Levothyroxine Sodium (Synthroid) 75 mcg PO DAILY@0600 [facility] Multi-Ingred Cream/Lotion/Oil/Oint (Artificial Tears Ophth Oint) 1 applic OU Q4HR PRN PRN Reason: Dry Eye(s) Multivitamins (Theragran Tab) 1 each PO DAILY [facility] Propranolol HCl (Inderal) 40 mg PO QDAY [facility] Rifaximin (Xifaxan) 550 mg PO BID [facility] Sodium Chloride (Nacl 0.9% 500 Ml) 5 ml IV DIRECT 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 Sodium Chloride (Sodium Chloride Flush Syringe 10 Ml) 10 ml IV BID [facility] Sodium Chloride (Sodium Chloride Flush Syringe 10 Ml) 10 ml IV PRN PRN PRN Reason: LINE FLUSH Spironolactone (Aldactone) 100 mg PO QDAY [facility] Thiamine HCl (Vitamin B-1) 100 mg PO QDAY [facility] Physical Examination Vital signs: Vital Signs Pulse Resp BP Pulse Ox 58 L 15 97/50 98 11/08/18 11:23 11/08/18 11:23 11/08/18 11:23 11/08/18 11:23 Results - Laboratory Findings CBC and BMP: 11/09/18 05:41 11/09/18 05:41 PT/INR, D-dimer PT 17.3 Sec. (12.2-14.9) H 11/08/18 11:47 INR 1.45 (0.87-1.13) H 11/08/18 11:47 Abnormal lab findings: Abnormal Labs 11/08/18 11/08/18 11/08/18 11:47 11:47 11:47 WBC 3.4 L MCH 26 L RDW 21.6 H Monocytes % (Manual) 13.0 H Basophils % (Manual) 3.0 H Lymphocytes # (Manual) 0.6 L PT 17.3 H INR 1.45 H Creatinine 0.6 L Glucose 130 H Total Bilirubin 1.50 H Alkaline Phosphatase 140 H Ammonia Total Creatine Kinase 27 L Total Protein 6.0 L Albumin 3.0 L Urine pH 11/08/18 11/08/18 11:47 12:00 WBC MCH RDW Monocytes % (Manual) Basophils % (Manual) Lymphocytes # (Manual) PT INR Creatinine Glucose Total Bilirubin Alkaline Phosphatase Ammonia 123.0 H Total Creatine Kinase Total Protein Albumin Urine pH 8.0 H
--- NOTE | 2018-11-08 13:58 | Cat Scan Report ---
CTA head with intravenous contrast CLINICAL HISTORY: Cerebrovascular accident. TECHNIQUE: 0.625 mm thick contiguous axial scans were obtained from the skull base to the skull vertex during ra pid bolus administration of intravenous contrast material. Multiplanar reconstructions were produced in the coronal and sagittal planes. In addition 3 plane MIP instructions were produced and reviewed f or this report. The axial source images and reconstructed images were reviewed for this report. All CT scans at this location are performed using CT dose reduction for ALARA by means of automated e xposure control. FINDINGS: The caliber of the intracranial vessels is normal throughout. There is no indication of intracranial stenosis or large vessel occlusion. There is no indication of vasculitis. There is no evidence of aneurysm or other vascular malformation. As reported separately on CT head 11/08/2018 there is a large area of encephalomalacia involving much o f the right temporal lobe and portions of the right parietal lobe. Postoperative changes status post bilateral frontoparietal craniotomies is observed. Calcified thickened dura is seen adjacent to the l eft craniotomy defect. Evaluation of the extracranial structures is remarkable for the presence of an orotracheal tube and o rogastric tube. Retained secretions are present in the nasopharynx, oropharynx and oral cavity. IMPRESSION: No indication of large vessel occlusion, intracranial stenosis or aneurysm. CONTRAST DOSE REPORT: Information not provided Signer Name: Khang Valenzuela MD Signed: 11/08/2018 1:54 PM Workstation Name: [id number]
[2018-11-08] MEDS: fentaNYL DRIP Premix 2,000 MCG/100 ML BAG IV SCH ×2 (14:00→20:42)
[2018-11-08] MEDS ORDERED: CEPHULAC PO SCH (14:00)
--- NOTE | 2018-11-08 14:34 | Cat Scan Report ---
CTA NECK WITH CONTRAST HISTORY: Stroke COMPARISON: CT scan of the brain from today TECHNIQUE: Routine , post-contrast CTA of the neck performed. 3-D/MIP reformats postprocessed. Per centage stenosis is determined by direct quantitative measurements of diseased internal carotid arter y diameter compared with normal distal internal carotid artery reference segments or by criteria george lar to NASCET where applicable. All CT scans at this location are performed using CT dose reduction f or ALARA by means of automated exposure control. CONTRAST: 100 ml of Isovue 370 FINDINGS: Aortic arch: Atherosclerotic calcification is seen at the origin of left subclavian artery. Origins o f innominate and left common carotid artery are normal. Cervical vertebral arteries: Calcified atheromatous plaque is seen at the origin of right vertebral a rtery. Left vertebral origin is normal. Extraosseous, foraminal, extraspinal and intradural segments of both vertebral arteries are normal. Common carotid arteries: Calcified atheromatous plaque is seen at the origin of right internal caroti d artery narrowing the lumen by 50%. Less than 30% narrowing is seen in the proximal left internal ca rotid artery. Cervical internal carotid arteries: No significant abnormality. Additional findings: Endotracheal tube is seen. Fluid accumulation is seen in the pharyngeal mucosal space. IMPRESSION: Calcified plaque with 50% stenoses in the proximal right internal carotid artery; less than 30% steno ses in the proximal left internal carotid artery Signer Name: Mian Ramirez MD Signed: 11/08/2018 2:29 PM Workstation Name: [id number]
[2018-11-08] MEDS ORDERED: DIPRIVAN 10 MG/ML 1,000 MG/100 ML BOTTLE IV SCH (15:00)
[2018-11-08] MEDS ORDERED: PANCREAZE DR 10,500 UNIT FEEDTUBE PRN (15:47)
[2018-11-08] MEDS ORDERED: SIMPLE SYRUP FEEDTUBE PRN ×2 (15:47)
[2018-11-08] MEDS ORDERED: SODIUM BICARBONATE FEEDTUBE PRN (15:47)
[2018-11-08] MEDS: LaMICtal PO SCH (22:00)
[2018-11-08] MEDS: CEPHULAC PO SCH (22:18)
[2018-11-08] MEDS: XIFAXAN PO SCH (22:18)
[2018-11-08] MEDS: KEPPRA PO SCH (22:19)
[2018-11-08] MEDS: SODIUM CHLORIDE FLUSH SYRINGE 10 ML IV SCH (22:21)
--- NOTE | 2018-11-09 05:16 | XRay Report ---
CHEST 1 VIEW INDICATION / CLINICAL INFORMATION: follow up respiratory failure. COMPARISON: 11/08/2018 FINDINGS: SUPPORT DEVICES: ET tube, NG tube both remain in stable and satisfactory position. HEART / MEDIASTINUM: No significant abnormality. LUNGS / PLEURA: Mild pulmonary vascular congestion. There is round masslike density projecting in the left lung base, retrocardiac region measuring approximately 3.5 cm. I cannot exclude the possibility of a pulmonary mass given the appearance. The remainder of the lungs are grossly clear. No pneumotho rax. ADDITIONAL FINDINGS: No significant additional findings. IMPRESSION: 1. Round masslike density projecting within the left lung base. This may represent a pulmonary mass. When the patient is clinically able, chest CT is suggested. 2. Mild pulmonary vascular congestion, grossly unchanged. Signer Name: Lawanda Fletcher MD Signed: 11/09/2018 5:11 AM Workstation Name: [id number]
[2018-11-09 06:17] LABS: Basophils # (Auto) 0.1 K/mm3 (0.0-0.1); Basophils % (Auto) 0.6 % (0.0-1.8); Eosinophils % (Auto) 0.3 % (0.0-4.3); Hemoglobin 11.6 gm/dl (10.1-14.3); Lymphocytes # (Auto) 0.3 K/mm3 (1.2-5.4); Lymphocytes % (Auto) 3.2 % (13.4-35.0); Mean Corpuscular HGB Conc 32 % (30-34); Mean Corpuscular Volume 81 fl (79-97); Monocytes # (Auto) 0.7 K/mm3 (0.0-0.8); Monocytes % (Auto) 6.5 % (0.0-7.3); Platelet Count 141 K/mm3 (140-440); Red Blood Count 4.45 M/mm3 (3.65-5.03)
[2018-11-09] MEDS: SYNTHROID PO SCH (06:20)
[2018-11-09 06:30] LABS: Red Cell Distribution Width 21.5 % (13.2-15.2)
[2018-11-09 06:40] LABS: Alanine Aminotransferase 20 units/L (7-56); Albumin 3.2 g/dL (3.9-5); BUN/Creatinine Ratio 15; Blood Urea Nitrogen 6 mg/dL (7-17); Calcium 8.7 mg/dL (8.4-10.2); Hemolysis Index 40
[2018-11-09] MEDS: CEPHULAC PO SCH ×3 (08:00→20:46)
[2018-11-09] MEDS: ALDACTONE PO SCH (09:06)
[2018-11-09] MEDS: INDERAL PO SCH (09:08)
[2018-11-09] MEDS: XIFAXAN PO SCH ×2 (09:08→21:39)
[2018-11-09] MEDS: FLONASE NS SCH (09:09)
[2018-11-09] MEDS: KEPPRA PO SCH ×2 (09:29→21:39)
[2018-11-09] MEDS: FOLVITE PO SCH (09:30)
[2018-11-09] MEDS: THERAGRAN Tab PO SCH (09:30)
[2018-11-09] MEDS: VITAMIN B-1 PO SCH (09:30)
[2018-11-09] MEDS: SODIUM CHLORIDE FLUSH SYRINGE 10 ML IV SCH ×2 (09:31→21:39)
--- NOTE | 2018-11-09 09:38 | Progress Note ---
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 Pt is intubated and unable to provide history. Pt history taken from EMS, and ED staff, and medical record. As per staff, the patient was in her usual state of health at bedtime which was around 2030 hrs. Pt was found to be confused with decreased level of consciousness. EMS notified and upon arrival the patient was found to be in distress. Pt transported to [facility]. Pt seen and evaluated in ED and found to have Encephalopathy, and Acute Hypoxemic Respiratory Failure and was unable to protect her airway. Pt intubated and placed on vent support. No further history obtainable. Pt admitted to ICU. Acute respiratory failure s/p intubated, on vent Pulm following Hepatic encephalopathy with hyperammonia Improved to 75 from 123 on admission. Lactulose Consult GI Alcoholic cirrhosis of liver Alcohol use Hypertension Monitor BP COPD Seizure disorder seizure precautions Continue Keppra and Lamictal. Hypothyroidism On Levothyroxine Bipolar disorder Dementia Full code stsatus History Interval history: Still intubated Hospitalist Physical - Physical exam Narrative exam: Gen: Not in acute distress, intubated, sedated, HEENT: Normocephalic, atraumatic Neck: supple, no JVD Heart: S1 and S2 reg, no murmurs, rubs or gallop Lungs: Clear, no crackles, no wheeze Abd: soft, non tender, non distended, normal BS Ext: No edema, no clubbing, no cyanosis, Neuro: Sedated, intubated - Constitutional Vitals: Temp Pulse Resp BP Pulse Ox 100.4 F H 89 17 125/61 93 11/09/18 08:00 11/09/18 09:08 11/09/18 04:21 11/09/18 09:08 11/09/18 08:33 General appearance: Present: severe distress Results - Labs CBC & Chem 7: 11/09/18 05:41 11/09/18 05:41 Labs: Laboratory Last Values WBC 10.7 K/mm3 (4.5-11.0) 11/09/18 05:41 RBC 4.45 M/mm3 (3.65-5.03) 11/09/18 05:41 Hgb 11.6 gm/dl (10.1-14.3) 11/09/18 05:41 Hct 36.0 % (30.3-42.9) 11/09/18 05:41 MCV 81 fl (79-97) 11/09/18 05:41 MCH 26 pg (28-32) L 11/09/18 05:41 MCHC 32 % (30-34) 11/09/18 05:41 RDW 21.5 % (13.2-15.2) H 11/09/18 05:41 Plt Count 141 K/mm3 (140-440) 11/09/18 05:41 Lymph % (Auto) 3.2 % (13.4-35.0) L 11/09/18 05:41 [place] % (Auto) 6.5 % (0.0-7.3) 11/09/18 05:41 Eos % (Auto) 0.3 % (0.0-4.3) 11/09/18 05:41 Baso % (Auto) 0.6 % (0.0-1.8) 11/09/18 05:41 Lymph # 0.3 K/mm3 (1.2-5.4) L 11/09/18 05:41 [place] # 0.7 K/mm3 (0.0-0.8) 11/09/18 05:41 Eos # 0.0 K/mm3 (0.0-0.4) 11/09/18 05:41 Baso # 0.1 K/mm3 (0.0-0.1) 11/09/18 05:41 Add Manual Diff Complete 11/08/18 11:47 Total Counted 100 11/08/18 11:47 Seg Neutrophils % 89.4 % (40.0-70.0) H 11/09/18 05:41 Seg Neuts % (Manual) 65.0 % (40.0-70.0) 11/08/18 11:47 0 % 11/08/18 11:47 17.0 % (13.4-35.0) 11/08/18 11:47 Reactive Lymphs % (Man) 0 % 11/08/18 11:47 13.0 % (0.0-7.3) H 11/08/18 11:47 2.0 % (0.0-4.3) 11/08/18 11:47 3.0 % (0.0-1.8) H 11/08/18 11:47 0 % 11/08/18 11:47 0 % 11/08/18 11:47 0 % 11/08/18 11:47 0 % 11/08/18 11:47 Nucleated RBC % Not Reportable 11/08/18 11:47 Seg Neutrophils # 9.6 K/mm3 (1.8-7.7) H 11/09/18 05:41 Seg Neutrophils # Man 2.2 K/mm3 (1.8-7.7) 11/08/18 11:47 Band Neutrophils # 0.0 K/mm3 11/08/18 11:47 0.6 K/mm3 (1.2-5.4) L 11/08/18 11:47 Abs React Lymphs (Man) 0.0 K/mm3 11/08/18 11:47 0.4 K/mm3 (0.0-0.8) 11/08/18 11:47 0.1 K/mm3 (0.0-0.4) 11/08/18 11:47 0.1 K/mm3 (0.0-0.1) 11/08/18 11:47 0.0 K/mm3 11/08/18 11:47 0.0 K/mm3 11/08/18 11:47 0.0 K/mm3 11/08/18 11:47 Blast Cells # 0.0 K/mm3 11/08/18 11:47 WBC Morphology Not Reportable 11/08/18 11:47 Hypersegmented Neuts Not Reportable 11/08/18 11:47 Hyposegmented Neuts Not Reportable 11/08/18 11:47 Hypogranular Neuts Not Reportable 11/08/18 11:47 Not Reportable 11/08/18 11:47 Not Reportable 11/08/18 11:47 Not Reportable 11/08/18 11:47 Not Reportable 11/08/18 11:47 Not Reportable 11/08/18 11:47 Not Reportable 11/08/18 11:47 Consistent w auto 11/08/18 11:47 Not Reportable 11/08/18 11:47 Plt Clumps, EDTA Not Reportable 11/08/18 11:47 Not Reportable 11/08/18 11:47 Few 11/08/18 11:47 Not Reportable 11/08/18 11:47 Plt Morphology Comment Not Reportable 11/08/18 11:47 RBC Morphology Not Reportable 11/08/18 11:47 Dimorphic RBCs Not Reportable 11/08/18 11:47 Not Reportable 11/08/18 11:47 Not Reportable 11/08/18 11:47 1+ 11/08/18 11:47 Few 11/08/18 11:47 Not Reportable 11/08/18 11:47 Not Reportable 11/08/18 11:47 Not Reportable 11/08/18 11:47 Not Reportable 11/08/18 11:47 Not Reportable 11/08/18 11:47 Not Reportable 11/08/18 11:47 Rare 11/08/18 11:47 Not Reportable 11/08/18 11:47 Not Reportable 11/08/18 11:47 Not Reportable 11/08/18 11:47 Not Reportable 11/08/18 11:47 Not Reportable 11/08/18 11:47 Not Reportable 11/08/18 11:47 Not Reportable 11/08/18 11:47 Few 11/08/18 11:47 Acanthocytes (Spur) Not Reportable 11/08/18 11:47 Rouleaux Not Reportable 11/08/18 11:47 Not Reportable 11/08/18 11:47 Not Reportable 11/08/18 11:47 Not Reportable 11/08/18 11:47 Not Reportable 11/08/18 11:47 Hem Pathologist Commnt No 11/08/18 11:47 PT 17.3 Sec. (12.2-14.9) H 11/08/18 11:47 INR 1.45 (0.87-1.13) H 11/08/18 11:47 APTT 30.4 Sec. (24.2-36.6) 11/08/18 11:47 15.4 Sec. (15.1-19.6) 11/08/18 11:47 POC ABG pH 7.468 (7.35-7.45) H 11/09/18 04:31 POC ABG pCO2 37.3 (35-45) 11/09/18 04:31 POC ABG pO2 73 (80-105) L 11/09/18 04:31 POC ABG HCO3 27.0 (22-26 mml/L) 11/09/18 04:31 POC ABG Total CO2 28 (23-27mmol/L) 11/09/18 04:31 POC ABG O2 Sat 95 11/09/18 04:31 POC ABG Base Excess 3 ((-2) - (+3)mmol/L) 11/09/18 04:31 45 % 11/09/18 04:31 Sodium 143 mmol/L (137-145) 11/09/18 05:41 Potassium 3.8 mmol/L (3.6-5.0) 11/09/18 05:41 Chloride 104.2 mmol/L (98-107) 11/09/18 05:41 Carbon Dioxide 26 mmol/L (22-30) 11/09/18 05:41 17 mmol/L 11/09/18 05:41 BUN 6 mg/dL (7-17) L 11/09/18 05:41 0.4 mg/dL (0.7-1.2) L 11/09/18 05:41 Estimated GFR > 60 ml/min 11/09/18 05:41 15 % 11/09/18 05:41 Glucose 91 mg/dL (65-100) 11/09/18 05:41 POC Glucose 112 (70-105) H 11/08/18 14:34 Lactic Acid 1.60 mmol/L (0.7-2.0) 11/08/18 16:01 Calcium 8.7 mg/dL (8.4-10.2) 11/09/18 05:41 Magnesium 1.80 mg/dL (1.7-2.3) 11/08/18 11:47 1.80 mg/dL (0.1-1.2) H 11/09/18 05:41 AST 40 units/L (5-40) 11/09/18 05:41 ALT 20 units/L (7-56) 11/09/18 05:41 153 units/L (35-129) H 11/09/18 05:41 75.0 umol/L (25-60) H 11/09/18 05:41 27 units/L (30-135) L 11/08/18 11:47 CK-MB (CK-2) < 1.0 ng/mL (0.0-4.0) 11/08/18 11:47 CK-MB (CK-2) Rel Index 3.7 (0-4) 11/08/18 11:47 < 0.010 ng/mL (0.00-0.029) 11/08/18 11:47 6.5 g/dL (6.3-8.2) 11/09/18 05:41 3.2 g/dL (3.9-5) L 11/09/18 05:41 1.0 % 11/09/18 05:41 TSH 2.370 mlU/mL (0.270-4.200) 11/08/18 11:47 Free T4 0.92 ng/dL (0.76-1.46) 11/08/18 11:47 Jihan (Yellow) 11/08/18 12:00 Cloudy (Clear) 11/08/18 12:00 8.0 (5.0-7.0) H 11/08/18 12:00 Ur Specific [place] 1.017 (1.003-1.030) 11/08/18 12:00 <15 mg/dl mg/dL (Negative) 11/08/18 12:00 Neg mg/dL (Negative) 11/08/18 12:00 Neg mg/dL (Negative) 11/08/18 12:00 Neg (Negative) 11/08/18 12:00 Neg (Negative) 11/08/18 12:00 Neg (Negative) 11/08/18 12:00 < 2.0 mg/dL (<2.0) 11/08/18 12:00 Ur Leukocyte Esterase Neg (Negative) 11/08/18 12:00 4.0 /HPF (0.0-6.0) 11/08/18 12:00 2.0 /HPF (0.0-6.0) 11/08/18 12:00 U Epithel Cells (Auto) 1.0 /HPF (0-13.0) 11/08/18 12:00 3+ /HPF (Negative) 11/08/18 12:00 Few /HPF 11/08/18 12:00 Plasma/Serum Alcohol < 0.01 % (0-0.07) 11/08/18 11:47 Active Medications - Current Medications Current Medications: Generic Name Dose Route Start Last Admin Trade Name Freq PRN Reason Stop Dose Admin Albuterol 2.5 mg 11/08/18 13:32 Proventil IH Q3HRT PRN Shortness Of Breath Lipase/Protease/Amylase 1 each 11/08/18 15:[address] 10,500 Unit FEEDTUBE PRN PRN For Clogged Feeding Tube Fentanyl 50 mcg 11/08/18 13:51 Sublimaze IV Q10MIN PRN ANALGESIA Fluticasone Propionate 50 mcg 11/09/18 10:00 11/09/18 09:09 Flonase NS Not Given QDAY HUONG Folic Acid 1 mg 11/09/18 10:00 11/09/18 09:30 Folvite PO 1 mg QDAY HUONG Administration Hydrophilic Ointment 1 applic 11/08/18 11:37 Vaseline Lip Therapy TP Q2HR PRN Dry Lips Fentanyl Citrate 2,000 mcg in 100 mls @ 3.275 mls/hr 11/08/18 14:00 11/08/18 22:08 Fentanyl Drip Premix IV 0 mcg/kg/hr TITR HUONG 0 mls/hr Titration Protocol 1 MCG/KG/HR Propofol 1,000 mg in 100 mls @ 1.965 mls/hr 11/08/18 15:00 11/08/18 20:20 Diprivan 10 Mg/Ml IV 0 mcg/kg/min TITR HUONG 0 mls/hr Titration Protocol 5 MCG/KG/MIN Lactulose 30 gm 11/08/18 20:00 11/09/18 08:00 Cephulac PO 30 gm TID HUONG Administration Lamotrigine 25 mg 11/08/18 22:00 11/08/18 22:00 Lamictal PO Not Given BID HUONG Levetiracetam 1,500 mg 11/08/18 22:00 11/09/18 09:29 Keppra PO 1,500 mg BID HUONG Administration Levothyroxine Sodium 75 mcg 11/09/18 06:00 11/09/18 06:20 Synthroid PO 75 mcg DAILY@0600 HUONG Administration Lorazepam 2 mg 11/08/18 14:18 Ativan IV Q1HR PRN RADHAWA-Fantasma 8-15 Multi-Ingred Cream/Lotion/Oil/Oint 1 applic 11/08/18 11:37 Artificial Tears Ophth Oint OU Q4HR PRN Dry Eye(s) Multivitamins 1 each 11/09/18 10:00 11/09/18 09:30 Theragran Tab PO 1 each DAILY HUONG Administration Propranolol HCl 40 mg 11/09/18 10:00 11/09/18 09:08 Inderal PO 40 mg QDAY HUONG Administration Rifaximin 550 mg 11/08/18 22:00 11/09/18 09:08 Xifaxan PO 550 mg BID HUONG Administration Simple Syrup 15 ml 11/08/18 15:47 Simple Syrup FEEDTUBE PRN PRN Hypoglycemia Simple Syrup 30 ml 11/08/18 15:47 Simple Syrup FEEDTUBE PRN PRN Hypoglycemia Sodium Bicarbonate 325 mg 11/08/18 15:47 Sodium Bicarbonate FEEDTUBE PRN PRN For Clogged Feeding Tube Sodium Chloride 5 ml 11/08/18 11:37 Nacl 0.9% 500 Ml IV DIRECT PRN [employer] Sodium Chloride 10 ml 11/08/18 22:00 11/09/18 09:31 Sodium Chloride Flush Syringe 10 Ml IV 10 ml BID HUONG Administration Sodium Chloride 10 ml 11/08/18 13:32 Sodium Chloride Flush Syringe 10 Ml IV PRN PRN LINE FLUSH Spironolactone 100 mg 11/09/18 10:00 11/09/18 09:06 Aldactone PO 100 mg QDAY HUONG Administration Thiamine HCl 100 mg 11/09/18 10:00 11/09/18 09:30 Vitamin B-1 PO 100 mg QDAY HUONG Administration Nutrition/Malnutrition Assess - Dietary Evaluation Nutrition/Malnutrition Findings: Nutrition Notes Start: 11/08/18 15:38 Freq: Status: Active Protocol: Document 11/08/18 15:38 RM (Rec: 11/08/18 15:47 RM [id number]) Nutrition Notes Need for Assessment generated from: MD Order Initial or Follow up Assessment Current Diagnosis COPD,Hypertension Other Pertinent Diagnosis Hx CVA,GERD, Dementia, ESLD Current Diet NPO Labs/Tests Reviewed Pertinent Medications Reviewed Height 5 ft 8 in Weight 65.499 kg [place] Body Weight (kg) 63.63 BMI 21.9 Subjective/Other Information Consulted for TF recommendation. Pt on vent. Burn Absent Trauma Absent #1 Nutrition Diagnosis Inadequate oral intake Etiology on vent As Evidenced by Signs and Symptoms NPO status Is patient on ventilator? Yes Is Patient Ambulatory and/or Out of Bed No [facility] 1527.264 Calculation Used for Recommendations [facility] Additional Notes Protein Needs: 79-98g (1.2-1. 6g/kg) Fluid Needs: 1 ml/kcal Nutrition Intervention Nutrition Support: Vital 1.2 at 55 ml/hr. Water flush of 100 mls q 4 hrs . Kcal 1,584 Protein (gm) 99 Fluid (mL) 1,071 Goal #1 TF tolerance Goal #2 Meet at least 80% of calorie and protein needs via TF Anticipated Discharge Needs: Unable to determine at this time Follow-Up By: 11/10/18 Additional Comments Follow for new TF
[2018-11-09] MEDS: LaMICtal PO SCH ×2 (10:00→21:39)
[2018-11-09] MEDS ORDERED: NON-FORMULARY (Multivitamin [Multi-Vitamin Daily] 1 EACH) PO SCH (10:00)
--- NOTE | 2018-11-09 10:53 | Progress Note ---
Assessment and Plan Acute hypoxemic respiratory failure, on mechanical ventilatory support. Decompensated liver cirrhosis. Hepatic encephalopathy. Hyperammonemia. Coagulopathy as a result of the liver cirrhosis. History of alcohol abuse and dependence. Hypothyroidism. History of chronic obstructive lung disease. Coronary artery disease. Seizure disorder. Leukopenia. Hyperbilirubinemia. Hypoalbuminemia. - discontinue pineda catheter - continue lactulose for hyperammonemia - continue bronchodilators (duonebs) with pulmonary hygiene per RT - continue lung protective strategies - daily CXR and ABG in short term - VAP bundle addressed - continue supplemental oxygen to keep O2 sats 88-90% - continue accuchecks with glycemic control per SSI for target blood glucose 140 - 180mg/dL - Agitation management - Titrate sedation to RASS 0 to -1 - Prevention of delirium, maintenance of sleep-wake cycle - follow clinically off AB's - continue AED's (keppra) for seizure disorder - watch for DT's - continue thiamine and folate supplementation - enteral nutrition as tolerated - continue mobility protocols for pressure ulcer prophylaxis - GI prophylaxis is with Pepcid - VTE and Stress ulcer prophylaxis CONDITION: CRITICAL PROGNOSIS: GUARDED CODE STATUS: FULL CODE The high probability of a clinically significant, sudden or life-threatening deterioration of the [respiratory, G.I. & neurologic] system(s) required my full and direct attention, intervention and personal management. The aggregate critical care time was [35] minutes without overlap. Time includes spent on; [x] Data Review and interpretation [x] Patient assessment and monitoring of vital signs [x] Documentation [x] Medication orders and management Subjective Date of service: 11/09/18 Principal diagnosis: Ac hypoxemic resp failure; Hepatic encephalopathy; Coagulopathy; Sz disord Interval history: Patient is seen today for: Acute hypoxemic respiratory failure on MVS; Decompensated liver cirrhosis; Hepatic encephalopathy; Hyperammonemia; Coagulopathy; History of alcohol abuse and dependence; Hypothyroidism; COPD; CAD; Seizure disorder. Seen and examined at bedside; 24hour events reviewed; nursing and respiratory care staff consulted; no adverse overnight events reported to me; remains on MVS; a little more active as ammonia level has reduced but still lethargic; No gross bleeding; no seizures; no emesis or overt aspiration Objective Vital Signs - 12hr 11/08/18 11/08/18 11/08/18 23:00 23:11 23:21 Temperature Pulse Rate 49 L 51 L 52 L Pulse Rate [ From Monitor] Respiratory 13 13 12 Rate Blood Pressure 112/54 112/54 112/54 O2 Sat by Pulse 99 99 98 Oximetry 11/08/18 11/08/18 11/08/18 23:30 23:41 23:46 Temperature 97.2 F L Pulse Rate 50 L 52 L Pulse Rate [ From Monitor] Respiratory 15 12 Rate Blood Pressure 117/60 112/54 O2 Sat by Pulse 98 99 Oximetry 11/08/18 11/09/18 11/09/18 23:51 00:00 00:11 Temperature Pulse Rate 53 L 54 L 56 L Pulse Rate [ 54 L From Monitor] Respiratory 13 12 13 Rate Blood Pressure 112/54 123/63 123/63 O2 Sat by Pulse 98 96 97 Oximetry 11/09/18 11/09/18 11/09/18 00:13 00:21 00:31 Temperature Pulse Rate 56 L 55 L 57 L Pulse Rate [ From Monitor] Respiratory 20 18 Rate Blood Pressure 123/63 123/63 121/84 O2 Sat by Pulse 98 98 97 Oximetry 11/09/18 11/09/18 11/09/18 00:41 00:51 01:00 Temperature Pulse Rate 57 L 57 L 60 Pulse Rate [ From Monitor] Respiratory 14 12 17 Rate Blood Pressure 123/63 123/63 121/84 O2 Sat by Pulse 96 98 96 Oximetry 11/09/18 11/09/18 11/09/18 01:11 01:21 01:31 Temperature Pulse Rate 59 L 62 62 Pulse Rate [ From Monitor] Respiratory 16 17 17 Rate Blood Pressure 121/84 132/109 127/102 O2 Sat by Pulse 95 96 96 Oximetry 11/09/18 11/09/18 11/09/18 01:41 01:51 02:00 Temperature Pulse Rate 63 60 62 Pulse Rate [ 62 From Monitor] Respiratory 12 15 17 Rate Blood Pressure 127/102 132/109 127/102 O2 Sat by Pulse 96 97 96 Oximetry 11/09/18 11/09/18 11/09/18 02:11 02:21 02:30 Temperature Pulse Rate 62 63 64 Pulse Rate [ From Monitor] Respiratory 16 22 17 Rate Blood Pressure 139/57 139/57 134/63 O2 Sat by Pulse 94 94 95 Oximetry 11/09/18 11/09/18 11/09/18 02:41 02:51 03:00 Temperature Pulse Rate 62 64 63 Pulse Rate [ From Monitor] Respiratory 14 14 13 Rate Blood Pressure 134/63 134/63 126/68 O2 Sat by Pulse 95 96 96 Oximetry 11/09/18 11/09/18 11/09/18 03:10 03:21 03:30 Temperature Pulse Rate 63 65 68 Pulse Rate [ From Monitor] Respiratory 14 15 20 Rate Blood Pressure 126/68 126/68 126/68 O2 Sat by Pulse 97 96 95 Oximetry 11/09/18 11/09/18 11/09/18 03:33 03:41 03:51 Temperature 97.8 F Pulse Rate 65 66 Pulse Rate [ From Monitor] Respiratory 15 15 Rate Blood Pressure 126/76 126/76 O2 Sat by Pulse 96 96 Oximetry 11/09/18 11/09/18 11/09/18 04:00 04:11 04:21 Temperature Pulse Rate 67 69 68 Pulse Rate [ 66 From Monitor] Respiratory 16 16 17 Rate Blood Pressure 123/73 123/73 123/73 O2 Sat by Pulse 96 93 95 Oximetry 11/09/18 11/09/18 11/09/18 04:23 08:00 08:33 Temperature 100.4 F H Pulse Rate 67 88 Pulse Rate [ From Monitor] Respiratory Rate Blood Pressure 123/76 108/54 O2 Sat by Pulse 95 93 Oximetry 11/09/18 11/09/18 09:06 09:08 Temperature Pulse Rate 89 89 Pulse Rate [ From Monitor] Respiratory Rate Blood Pressure 125/61 125/61 O2 Sat by Pulse Oximetry Constitutional: no acute distress, other (elderly and chronically ill looking CF, normocephalic with mildly increase resp effort on MVS) Eyes: non-icteric ENT: oropharynx moist, other (ETT 23 cm NÉSTOR) Neck: supple, no lymphadenopathy, no JVD, other (no thyromegaly) Effort: mildly labored Ascultation: Bilateral: rhonchi Percussion: Bilateral: not dull Cardiovascular: regular rate and rhythm Gastrointestinal: normoactive bowel sounds, soft, non-tender, non-distended Integumentary: rash, other (spider naevi) Extremities: no cyanosis, no edema, pulses normal, no ischemia or petechiae Neurologic: non-focal exam (grossly), pupils equal and round, CN II-XII normal, unable to assess Psychiatric: other (unable to assess re: encephalopathy) CBC and BMP: 11/09/18 05:41 11/09/18 05:41 ABG, PT/INR, D-dimer: ABG POC ABG pH 7.468 (7.35-7.45) H 11/09/18 04:31 POC ABG pCO2 37.3 (35-45) 11/09/18 04:31 POC ABG pO2 73 (80-105) L 11/09/18 04:31 POC ABG HCO3 27.0 (22-26 mml/L) 11/09/18 04:31 POC ABG Total CO2 28 (23-27mmol/L) 11/09/18 04:31 POC ABG O2 Sat 95 11/09/18 04:31 PT/INR, D-dimer PT 17.3 Sec. (12.2-14.9) H 11/08/18 11:47 INR 1.45 (0.87-1.13) H 11/08/18 11:47 Abnormal lab findings: Abnormal Labs 11/08/18 11/08/18 11/08/18 11:47 11:47 11:47 WBC 3.4 L MCH 26 L RDW 21.6 H Lymph % (Auto) Lymph # Seg Neutrophils % Monocytes % (Manual) 13.0 H Basophils % (Manual) 3.0 H Seg Neutrophils # Lymphocytes # (Manual) 0.6 L PT 17.3 H INR 1.45 H POC ABG pH POC ABG pCO2 POC ABG pO2 BUN Creatinine 0.6 L Glucose 130 H POC Glucose Total Bilirubin 1.50 H Alkaline Phosphatase 140 H Ammonia Total Creatine Kinase 27 L Total Protein 6.0 L Albumin 3.0 L Urine pH 11/08/18 11/08/18 11/08/18 11:47 12:00 14:01 WBC MCH RDW Lymph % (Auto) Lymph # Seg Neutrophils % Monocytes % (Manual) Basophils % (Manual) Seg Neutrophils # Lymphocytes # (Manual) PT INR POC ABG pH 7.452 H POC ABG pCO2 32.8 L POC ABG pO2 127 H BUN Creatinine Glucose POC Glucose Total Bilirubin Alkaline Phosphatase Ammonia 123.0 H Total Creatine Kinase Total Protein Albumin Urine pH 8.0 H 11/08/18 11/08/18 11/09/18 14:34 15:13 04:31 WBC MCH RDW Lymph % (Auto) Lymph # Seg Neutrophils % Monocytes % (Manual) Basophils % (Manual) Seg Neutrophils # Lymphocytes # (Manual) PT INR POC ABG pH 7.468 H POC ABG pCO2 POC ABG pO2 76 L 73 L BUN Creatinine Glucose POC Glucose 112 H Total Bilirubin Alkaline Phosphatase Ammonia Total Creatine Kinase Total Protein Albumin Urine pH 11/09/18 11/09/18 11/09/18 05:41 05:41 05:41 WBC MCH 26 L RDW 21.5 H Lymph % (Auto) 3.2 L Lymph # 0.3 L Seg Neutrophils % 89.4 H Monocytes % (Manual) Basophils % (Manual) Seg Neutrophils # 9.6 H Lymphocytes # (Manual) PT INR POC ABG pH POC ABG pCO2 POC ABG pO2 BUN 6 L Creatinine 0.4 L Glucose POC Glucose Total Bilirubin 1.80 H Alkaline Phosphatase 153 H Ammonia 75.0 H Total Creatine Kinase Total Protein Albumin 3.2 L Urine pH Chest x-ray: image reviewed (mild interstitial edema) Allied health notes reviewed: nursing
[2018-11-09] MEDS: PEPCID PO SCH (12:00)
--- NOTE | 2018-11-09 14:57 | Gastroenterology Consultation ---
History of Present Illness - Reason for Consult Consult date: 11/09/18 cirrhosis, hyperammonia Requesting physician: CHARLOTTE PETTY - History of Present Illness Patient is a 62 y/o female with PMH of CAD, HTN, COPD, hypothyroidism, dementia, cirrhosis, hepatic encephalopathy, seizure disorder, TIA (on Plavix), brain aneurysm/injury who was brought to ED by EMS for confusion/decreased level of consciousness. Upon admission, she was found to be in acute hypoxemic r espiratory failure and encephalopathy with elevated ammonia level to which GI has been consulted. Patient is well known to our service and is followed by Dr. Barajas. She has a hx of alcoholic cirrhosis (former ETOH; no active use) with varices and hepatic encephalopathy. Takes lactulose, xifaxan, propranolol, and diuretics at home. Last EGD 06/23/17 that showed 0-1+ distal esophageal varices and mild portal hypertension gastropathy. She is currently on vent in ICU. No evidence of abd pain, N/V, or signs of bleeding. Past History Past Medical History: other (as per HPI) Past Surgical History: hysterectomy, Other (Brain surgery') Social history: single, other (former ETOH). denies: smoking, alcohol abuse, prescription drug abuse Family history: CAD, hypertension Medications and Allergies Allergies Allergy/AdvReac Type Severity Reaction Status Date / Time No Known Allergies Allergy Verified 09/20/18 17:09 Home Medications Medication Instructions Recorded Confirmed Last Taken Type Folic Acid [Folvite] 1 mg PO QDAY 11/02/13 11/08/18 06/22/17 History Multivitamin [Multi-Vitamin Daily] 1 each PO DAILY 11/02/13 11/08/18 06/22/17 History Aspirin [Aspirin BABY CHEW TAB] 1 tab PO DAILY 05/10/14 11/08/18 06/22/17 History Plavix 75 mg PO DAILY #30 08/16/17 11/08/18 Unknown Rx Thiamine [Vitamin B-1] 100 mg PO QDAY #30 tablet 08/16/17 11/08/18 Unknown Rx lamoTRIgine [LaMICtal] 25 mg PO BID #50 tablet 08/16/17 11/08/18 Unknown Rx Rifaximin [Xifaxan] 550 mg PO BID #60 tablet 07/30/18 11/08/18 Unknown Rx ALBUTEROL NEB's [Proventil 0.083% 2.5 mg IH Q6HRT PRN #90 nebu 08/04/18 11/08/18 Unknown Rx NEBS] Ipratropium/Albuterol Sulfate 1 ampul IH TIDRT #90 ampul.neb 08/04/18 11/08/18 Unknown Rx [DUONEB *Not for PRN Use*] Fluticasone [Flonase] 1 spray NS QDAY 09/22/18 11/08/18 Unknown History Propranolol [Inderal] 40 mg PO QDAY 09/22/18 11/08/18 Unknown History Lactulose [Cephulac] 30 gm PO TID oral.liqd 10/05/18 11/08/18 Unknown Rx Levothyroxine [Synthroid] 75 mcg PO DAILY@0600 tablet 10/05/18 11/08/18 Unknown Rx levETIRAcetam [Keppra] 1,500 mg PO BID oral.liqd 10/05/18 11/08/18 Unknown Rx Famotidine [Pepcid] 40 mg PO QHS 11/08/18 11/08/18 Unknown History Spironolactone [Aldactone] 100 mg PO QDAY 11/08/18 11/08/18 Unknown History Active Meds: Active Medications Albuterol (Proventil) 2.5 mg IH Q3HRT PRN PRN Reason: Shortness Of Breath Lipase/Protease/Amylase (Pancreaze Dr 10,500 Unit) 1 each FEEDTUBE PRN PRN PRN Reason: For Clogged Feeding Tube Famotidine (Pepcid) 20 mg PO QDAY [facility] Last Admin: 11/09/18 12:00 Dose: 20 mg Documented by: Fentanyl (Sublimaze) 50 mcg IV Q10MIN PRN PRN Reason: ANALGESIA Fluticasone Propionate (Flonase) 50 mcg NS QDAY [facility] Last Admin: 11/09/18 09:09 Dose: Not Given Documented by: Folic Acid (Folvite) 1 mg PO QDAY [facility] Last Admin: 11/09/18 09:30 Dose: 1 mg Documented by: Hydrophilic Ointment (Vaseline Lip Therapy) 1 applic TP Q2HR PRN PRN Reason: Dry Lips Fentanyl Citrate (Fentanyl Drip Premix) 2,000 mcg in 100 mls @ 3.275 mls/hr IV TITR [facility]; Protocol Last Titration: 11/08/18 22:08 Dose: 0 mcg/kg/hr, 0 mls/hr Documented by: Propofol (Diprivan 10 Mg/Ml) 1,000 mg in 100 mls @ 1.965 mls/hr IV TITR [facility]; Protocol Last Titration: 11/08/18 20:20 Dose: 0 mcg/kg/min, 0 mls/hr Documented by: Lactulose (Cephulac) 30 gm PO TID [facility] Last Admin: 11/09/18 13:03 Dose: 30 gm Documented by: Lamotrigine (Lamictal) 25 mg PO BID [facility] Last Admin: 11/09/18 10:00 Dose: 25 mg Documented by: Levetiracetam (Keppra) 1,500 mg PO BID [facility] Last Admin: 11/09/18 09:29 Dose: 1,500 mg Documented by: Levothyroxine Sodium (Synthroid) 75 mcg PO DAILY@0600 [facility] Last Admin: 11/09/18 06:20 Dose: 75 mcg Documented by: Lorazepam (Ativan) 2 mg IV Q1HR PRN PRN Reason: CIWA-Ar 8-15 Multi-Ingred Cream/Lotion/Oil/Oint (Artificial Tears Ophth Oint) 1 applic OU Q4HR PRN PRN Reason: Dry Eye(s) Multivitamins (Theragran Tab) 1 each PO DAILY [facility] Last Admin: 11/09/18 09:30 Dose: 1 each Documented by: Propranolol HCl (Inderal) 40 mg PO QDAY [facility] Last Admin: 11/09/18 09:08 Dose: 40 mg Documented by: Rifaximin (Xifaxan) 550 mg PO BID [facility] Last Admin: 11/09/18 09:08 Dose: 550 mg Documented by: Simple Syrup (Simple Syrup) 15 ml FEEDTUBE PRN PRN PRN Reason: Hypoglycemia Simple Syrup (Simple Syrup) 30 ml FEEDTUBE PRN PRN PRN Reason: Hypoglycemia Sodium Bicarbonate (Sodium Bicarbonate) 325 mg FEEDTUBE PRN PRN PRN Reason: For Clogged Feeding Tube Sodium Chloride (Nacl 0.9% 500 Ml) 5 ml IV DIRECT PRN PRN Reason: [employer] MODEL Sodium Chloride (Sodium Chloride Flush Syringe 10 Ml) 10 ml IV BID [facility] Last Admin: 11/09/18 09:31 Dose: 10 ml Documented by: Sodium Chloride (Sodium Chloride Flush Syringe 10 Ml) 10 ml IV PRN PRN PRN Reason: LINE FLUSH Spironolactone (Aldactone) 100 mg PO QDAY [facility] Last Admin: 11/09/18 09:06 Dose: 100 mg Documented by: Thiamine HCl (Vitamin B-1) 100 mg PO QDAY [facility] Last Admin: 11/09/18 09:30 Dose: 100 mg Documented by: medications reviewed/updated as required Review of Systems - Review of Systems ROS unobtainable: due to endotracheal tube, due to mental status Exam - Constitutional Vital Signs: Temp Pulse Resp BP Pulse Ox 100.8 F H 78 18 103/56 96 11/09/18 12:00 11/09/18 12:01 11/09/18 10:51 11/09/18 12:01 11/09/18 12:01 General appearance: no acute distress, other (in ICU on vent) - Respiratory Respiratory: bilateral: CTA (anterior) - Cardiovascular Rhythm: regular - Gastrointestinal General gastrointestinal: Present: soft, non-distended, normal bowel sounds - Labs CBC & Chem 7: 11/09/18 05:41 11/09/18 05:41 Lab Results: Laboratory Results - last 24 hr 11/08/18 11/08/18 11/09/18 15:13 16:01 04:31 WBC RBC Hgb Hct MCV MCH MCHC RDW Plt Count Lymph % (Auto) [place] % (Auto) Eos % (Auto) Baso % (Auto) Lymph # [place] # Eos # Baso # Seg Neutrophils % Seg Neutrophils # POC ABG pH 7.371 7.468 H POC ABG pCO2 37.9 37.3 POC ABG pO2 76 L 73 L POC ABG HCO3 22.0 27.0 POC ABG Total CO2 23 28 POC ABG O2 Sat 95 95 POC ABG Base Excess -3 3 FiO2 40 45 Sodium Potassium Chloride Carbon Dioxide Anion Gap BUN Creatinine Estimated GFR BUN/Creatinine Ratio Glucose POC Glucose Lactic Acid 1.60 Calcium Total Bilirubin AST ALT Alkaline Phosphatase Ammonia C-Reactive Protein Total Protein Albumin Albumin/Globulin Ratio 11/09/18 11/09/18 11/09/18 05:41 05:41 05:41 WBC 10.7 RBC 4.45 Hgb 11.6 Hct 36.0 MCV 81 MCH 26 L MCHC 32 RDW 21.5 H Plt Count 141 Lymph % (Auto) 3.2 L [place] % (Auto) 6.5 Eos % (Auto) 0.3 Baso % (Auto) 0.6 Lymph # 0.3 L [place] # 0.7 Eos # 0.0 Baso # 0.1 Seg Neutrophils % 89.4 H Seg Neutrophils # 9.6 H POC ABG pH POC ABG pCO2 POC ABG pO2 POC ABG HCO3 POC ABG Total CO2 POC ABG O2 Sat POC ABG Base Excess FiO2 Sodium 143 Potassium 3.8 Chloride 104.2 Carbon Dioxide 26 Anion Gap 17 BUN 6 L Creatinine 0.4 L Estimated GFR > 60 BUN/Creatinine Ratio 15 Glucose 91 POC Glucose Lactic Acid Calcium 8.7 Total Bilirubin 1.80 H AST 40 ALT 20 Alkaline Phosphatase 153 H Ammonia 75.0 H C-Reactive Protein Total Protein 6.5 Albumin 3.2 L Albumin/Globulin Ratio 1.0 11/09/18 11/09/18 11/09/18 05:41 11:44 13:15 WBC RBC Hgb Hct MCV MCH MCHC RDW Plt Count Lymph % (Auto) [place] % (Auto) Eos % (Auto) Baso % (Auto) Lymph # [place] # Eos # Baso # Seg Neutrophils % Seg Neutrophils # POC ABG pH POC ABG pCO2 POC ABG pO2 POC ABG HCO3 POC ABG Total CO2 POC ABG O2 Sat POC ABG Base Excess FiO2 Sodium Potassium Chloride Carbon Dioxide Anion Gap BUN Creatinine Estimated GFR BUN/Creatinine Ratio Glucose POC Glucose 114 H Lactic Acid 1.90 Calcium Total Bilirubin AST ALT Alkaline Phosphatase Ammonia C-Reactive Protein 0.60 Total Protein Albumin Albumin/Globulin Ratio Assessment and Plan 1.hepatic encephalopathy 2.H/o alcoholic cirrhosis with varices -WBC WNL (10.7) -H/H WNL (11.6/36.0) -plt 141, INR 1.45 -LFTs-T.suzy 1.80, AST 40, ALT 20, alk phos 153 -ammonia 75 -trended down (123 on admission) -abdominal U/S 09/22/2018 showed advanced cirrhosis and gallstones but no mass or ascites -Last EGD 06/23/17 that showed 0-1+ distal esophageal varices and mild portal hypertension gastropathy -etiology-patient has a hx of alcoholic cirrhosis 2/2 former ETOH abuse with varices and HE -Patient is currently on vent in ICU. No evidence of abd pain, N/V, or signs of bleeding. Tolerating TFs. -continue PPI, diuretics, xifaxan, propranalol, and lactulose (titrate to goal of BMs x 3/day) -continue to trend labs and supportive care -will follow
--- NOTE | 2018-11-09 21:57 | Consultation ---
PULMONARY CRITICAL CARE CONSULT NOTE CONSULTING PHYSICIAN: Dr. Vasquez. REASON FOR CONSULTATION: Acute respiratory failure, on mechanical ventilatory support, acute encephalopathy. CHIEF COMPLAINT AND HISTORY OF PRESENT ILLNESS: The patient is a 62-year-old female with past medical history significant amongst other things both for a diagnosis of chronic obstructive lung disease, but also liver cirrhosis with complications including esophageal varices. She was brought into the Emergency Room by medical services for a code stroke. She was found with altered mental status, last seen the night before presentation. No friends or family at presentation. Accu-Cheks were normal. Serum glucose was normal. She was evaluated by the neuro team, but because of her history coagulopathy, she was not deemed a candidate for TPA. She required endotracheal intubation. This was done with a #7.5 tube and after workup in the Emergency Room; she was admitted to the medical floor. Admission diagnosis included the acute hypoxemic respiratory failure, hyperammonemia and essentially hepatic encephalopathy. The patient also has a history of alcohol use and seizures. When I stopped by to see her, she was intubated and sedated. I believe she might have been on a fentanyl drip when I saw her. She was essentially sedated to a RASS scale of about -2. We do not have any history of vomiting or overt aspiration. It is unclear if she had any prodromal symptoms, any fevers, any chills or any diarrhea. It is unclear if there were any sick contacts. Now with regards to tobacco history, she is described as a never smoker. This really is as much of the history of presentation as I have. PAST MEDICAL HISTORY: Hypertension, cerebrovascular accident in 2014, history of gastroesophageal reflux disease, history of liver cirrhosis, history of arthritis, history of seizures, history of alcohol use, history of bipolar disorder, history of COPD, history of dementia. She has thrombocytopenia and early dementia. PAST SURGICAL HISTORY: She had a repair of a brain aneurysm and she has had a hysterectomy I think in 2013. MEDICATIONS: She was on at the time I stopped by to see were reviewed. Pertinent medications included the following: Albuterol nebulizer treatments q. 3 hours p.r.n. shortness of breath, fentanyl drip was going I believe at 1 mcg/kg per hour, Flonase 50 mcg each nostril daily, folic acid 1 mg p.o. daily, p.o. All p.o., meds via the feeding tube. Fentanyl drip was going at 1 mcg/kg per hour, lactulose 30 grams p.o. t.i.d., Lamictal 25 mg p.o. b.i.d., Keppra 1.5 grams p.o. b.i.d., Synthroid 75 mcg p.o. daily, daily multivitamin, propranolol 40 mg p.o. daily, Xifaxan 550 mg p.o. b.i.d., Aldactone 100 mg p.o. daily, and thiamine 100 mg p.o. daily. ALLERGIES: No known drug allergies. DIET: Thin lady, acute weight loss, again history is unknown. FAMILY AND SOCIAL HISTORY: Seems like she lives in the community. She is single. She has a not too far remote history of alcohol abuse, illicit drug use or abuse history is unknown. There is a family history of coronary artery disease and hypertension according to the records. REVIEW OF SYSTEMS: Unobtainable secondary to patient's medical and mental condition. Since she has been here, there were no gross hematochezia or melena, no gross hematuria, no hematemesis, no bloody tracheal secretions, no witnessed seizures. Review of systems is otherwise unobtainable. PHYSICAL EXAMINATION: VITAL SIGNS: At presentation in the Emergency Room, review of vital signs, she was hypothermic, temperature was 96.4 degrees Fahrenheit with a pulse of 58, respiratory rate of 12, blood pressure 97/50, O2 sats were 98%, inspired oxygen concentration was not recorded. At the time I stopped by to see her, O2 sats were 98% that was on assist control mode of ventilation, tidal volumes 450, rate of 12, PEEP of 5 on 45% FiO2. GENERAL: Again thin, elderly looking, chronically ill-looking female: Normocephalic, on the mechanical ventilator without significant patient ventilator dyssynchrony. HEAD, EYES, EARS, NOSE AND THROAT: She is anicteric. No conjunctival erythema. Oropharynx was moist. Endotracheal tube was taped at the lips around 23 cm. No gross jugular venous distention, no thyromegaly. Grossly, no palpable lymph nodes in the supraclavicular or submandibular lymph node chains. LUNGS: Auscultation of both lung adair revealed scant bibasilar rales, no active wheezing. HEART: Heart sounds 1 and 2 are heard at the time of my evaluation, regular rate and rhythm without rubs or murmurs. ABDOMEN: Soft. Bowel sounds are positive, nontender. No palpable hepatosplenomegaly. EXTREMITIES: Without overt digital clubbing or cyanosis. She had trace pedal edema. Pedal pulses were palpable and strong bilaterally. The skin was of poor turgor; however, without overt cellulitis or rash or decubitus ulcer. NEUROLOGIC: Pupils were equal, about 3 mm, reactive to light. Extraocular muscle movements could not be assessed. She had spontaneous movements to all extremities, but was not following commands. She was sedated. No fasciculations. No spasticity. PSYCHIATRIC: She was sedated, I was unable to evaluate. LABORATORY DATA: From my review as follows: Admission white cell count 3400 with a hemoglobin of 10.5, hematocrit 32.7 and platelet count 149. No band neutrophils reported. INR was 1.45. Arterial blood gas showed a pH of 7.37, pCO2 of 38, pO2 of 76 that was on the above settings of 40% FiO2. Serum sodium was 140, potassium 3.6, chloride 102, bicarbonate 26, BUN 9, creatinine 0.6, glucose 130. Lactic acid level was within normal limits. Total bilirubin 1.5. Liver function tests, AST, ALT within normal limits. Ammonia was up at 123. Troponin was within normal limits. Albumin was low at 3.0. Urinalysis was negative for nitrites and leukocyte esterase and bland essentially. Alcohol level was non-detectable. Tracheal aspirate is pending. Urine cultures have been sent as well as urinalysis. Chest x-ray was reviewed as well as other testing. The chest x-ray essentially shows endotracheal tube with the tip in good position at the lower level of the clavicular heads, no overt infiltrate that I can see. Feeding tube is seen coursing through the mediastinum. No pneumothorax. No acute findings. She also had a CT scan of the cervical spine that showed no acute findings, just degenerative changes. A CT scan of the face was also done: No significant abnormality. No evidence of traumatic injury. CT scan of the brain, no acute intracranial abnormality. She had a CT angiogram of the head and neck also. No indication of large vessel occlusion or intracranial aneurysm. ASSESSMENT: 1. Acute hypoxemic respiratory failure, on mechanical ventilatory support. 2. Decompensated liver cirrhosis. 3. Hepatic encephalopathy. 4. Hyperammonemia. 5. Coagulopathy as a result of the liver cirrhosis. 6. History of alcohol abuse and dependence. 7. Hypothyroidism. 8. History of chronic obstructive lung disease. 9. Coronary artery disease. 10. Seizure disorder. 11. Leukopenia. 12. Hyperbilirubinemia. 13. Hypoalbuminemia. PLAN: We will keep her on full mechanical ventilator support. In the short time, we will continue with Xifaxan and lactulose and continue to work on the ammonia levels. Hopefully, as those improve, she should do better. I will get a CRP level to better evaluate and may help making clinical decisions, especially in terms of antibiotics. My impulse is to especially with her being hemodynamically stable, just draw cultures and keep her without antibiotics. Blood cultures will be sent. Urine cultures have been sent. Tracheal aspirate will be sent. There is no evidence of an acute GI bleed. She will be put on GI prophylaxis. DVT prophylaxis will be with SCDs. Sedation will be targeted for RASS scale of 0 to -1. Daily spontaneous breathing trials and sedation assessment trials will begin from tomorrow. Bronchodilators with routine pulmonary hygiene, respiratory therapist will be instituted. I will put her on DuoNeb and in the short time scheduled q. 8 hours and then p.r.n. as she is reevaluated. Flu and pneumonia vaccination will be addressed per protocol. Thank you very much for the consult, Dr. Vasquez, Dr. Montes De Oca. We will follow along and make further recommendations as picture progresses/becomes clearer. She is critically ill on life-sustaining interventions including mechanical ventilatory support at high risk of from cardiopulmonary and a hematologic as well as neurologic system deterioration. At this time, I spent about 35-40 minutes of critical care time without overlap and excluding any procedural time that may be necessary. JOB# [id number] ZULEMA/ASIA HOANG
--- NOTE | 2018-11-10 04:13 | XRay Report ---
CHEST 1 VIEW INDICATION / CLINICAL INFORMATION: follow up respiratory failure. COMPARISON: 11/09/2018 FINDINGS: SUPPORT DEVICES: ET tube and NG tube remain in stable and satisfactory position. HEART / MEDIASTINUM: No significant abnormality. LUNGS / PLEURA: Mild/moderate pulmonary vascular congestion persists unchanged. There continues to be the suggestion of a 3 cm round pulmonary mass in the left lung base, retrocardiac region. No pleural effusion. No pneumothorax. ADDITIONAL FINDINGS: No significant additional findings. IMPRESSION: 1. Stable appearance of the chest radiograph. 2. Continued presence of 3 cm rounded density left lower lobe, retrocardiac region. Signer Name: Lawanda Fletcher MD Signed: 11/10/2018 4:09 AM Workstation Name: [id number]
--- NOTE | 2018-11-10 06:23 | Progress Note ---
Assessment and Plan Acute hypoxemic respiratory failure, on mechanical ventilatory support. Decompensated liver cirrhosis. Hepatic encephalopathy. Hyperammonemia. Coagulopathy as a result of the liver cirrhosis. History of alcohol abuse and dependence. Hypothyroidism. History of chronic obstructive lung disease. Coronary artery disease. Seizure disorder. Leukopenia. Hyperbilirubinemia. Hypoalbuminemia. - increased peep to 8 cm H2O - ID consulted re: Pneumonia - discontinued pineda catheter - continue lactulose for hyperammonemia - daily SAT's and SBT's as tolerated (rest on AC mode qhs for now) - VAP bundle addressed - continue supplemental oxygen to keep O2 sats 88-90% - continue bronchodilators (duonebs) with pulmonary hygiene per RT - continue lung protective strategies - daily CXR and ABG in short term - continue accuchecks with glycemic control per SSI for target blood glucose 140 - 180mg/dL - Agitation management - Titrate sedation to RASS 0 to -1 - Prevention of delirium, maintenance of sleep-wake cycle - follow clinically off AB's - continue AED's (keppra) for seizure disorder - watch for DT's - continue thiamine and folate supplementation - enteral nutrition as tolerated - continue mobility protocols for pressure ulcer prophylaxis - GI prophylaxis is with Pepcid - VTE and Stress ulcer prophylaxis CONDITION: CRITICAL PROGNOSIS: GUARDED CODE STATUS: FULL CODE The high probability of a clinically significant, sudden or life-threatening deterioration of the [respiratory, G.I. & neurologic] system(s) required my full and direct attention, intervention and personal management. The aggregate critical care time was [32] minutes without overlap. Time includes spent on; [x] Data Review and interpretation [x] Patient assessment and monitoring of vital signs [x] Documentation [x] Medication orders and management Subjective Date of service: 11/10/18 Principal diagnosis: Ac hypoxemic resp failure; Hepatic encephalopathy; Coagulopathy; Sz disord Interval history: Patient is seen today for: Acute hypoxemic respiratory failure on MVS; Decompensated liver cirrhosis; Hepatic encephalopathy; Hyperammonemia; Coagulopathy; History of alcohol abuse and dependence; Hypothyroidism; COPD; CAD; Seizure disorder. Seen and examined at bedside; 24hour events reviewed; nursing and respiratory care staff consulted; no adverse overnight events reported to me; remains on MVS; oxygenation still sub-optimal; tolerating SBT though and more alert; No N/V/F/C; growing staph from tracheal aspirate now Objective Vital Signs - 12hr 11/09/18 11/09/18 11/09/18 18:30 18:40 18:50 Temperature Pulse Rate 74 73 72 Pulse Rate [ From Monitor] Respiratory 19 19 17 Rate Blood Pressure 91/47 91/47 91/47 O2 Sat by Pulse 94 95 97 Oximetry 11/09/18 11/09/18 11/09/18 19:00 19:10 19:20 Temperature Pulse Rate 72 73 74 Pulse Rate [ From Monitor] Respiratory 19 17 19 Rate Blood Pressure 103/49 103/49 103/49 O2 Sat by Pulse 96 96 95 Oximetry 11/09/18 11/09/18 11/09/18 19:30 19:35 19:40 Temperature Pulse Rate 74 74 74 Pulse Rate [ From Monitor] Respiratory 19 19 Rate Blood Pressure 103/50 103/50 103/50 O2 Sat by Pulse 95 95 96 Oximetry 11/09/18 11/09/18 11/09/18 19:50 20:00 20:10 Temperature 100.6 F H Pulse Rate 77 78 77 Pulse Rate [ 79 From Monitor] Respiratory 20 21 19 Rate Blood Pressure 103/49 113/57 113/57 O2 Sat by Pulse 96 94 95 Oximetry 11/09/18 11/09/18 11/09/18 20:20 20:30 20:40 Temperature Pulse Rate 75 74 75 Pulse Rate [ From Monitor] Respiratory 19 18 18 Rate Blood Pressure 113/57 120/58 120/58 O2 Sat by Pulse 96 97 96 Oximetry 11/09/18 11/09/18 11/09/18 20:50 21:00 21:10 Temperature Pulse Rate 75 74 75 Pulse Rate [ From Monitor] Respiratory 18 18 18 Rate Blood Pressure 120/58 113/56 113/56 O2 Sat by Pulse 96 97 97 Oximetry 11/09/18 11/09/18 11/09/18 21:20 21:30 21:40 Temperature Pulse Rate 74 78 78 Pulse Rate [ From Monitor] Respiratory 19 26 H 21 Rate Blood Pressure 113/56 117/49 117/49 O2 Sat by Pulse 98 96 96 Oximetry 11/09/18 11/09/18 11/09/18 21:50 22:00 22:10 Temperature Pulse Rate 76 75 73 Pulse Rate [ 75 From Monitor] Respiratory 21 18 17 Rate Blood Pressure 117/49 107/49 107/49 O2 Sat by Pulse 97 96 96 Oximetry 11/09/18 11/09/18 11/09/18 22:12 22:20 22:30 Temperature Pulse Rate 72 72 71 Pulse Rate [ From Monitor] Respiratory 16 16 16 Rate Blood Pressure 107/49 107/49 110/52 O2 Sat by Pulse 96 98 97 Oximetry 11/09/18 11/09/18 11/09/18 22:40 22:50 23:00 Temperature Pulse Rate 71 69 69 Pulse Rate [ From Monitor] Respiratory 18 16 16 Rate Blood Pressure 110/52 110/52 108/51 O2 Sat by Pulse 97 98 98 Oximetry 11/09/18 11/09/18 11/09/18 23:10 23:20 23:30 Temperature Pulse Rate 70 70 69 Pulse Rate [ From Monitor] Respiratory 18 16 17 Rate Blood Pressure 108/51 108/51 102/51 O2 Sat by Pulse 97 99 98 Oximetry 11/09/18 11/09/18 11/10/18 23:40 23:50 00:00 Temperature Pulse Rate 70 69 68 Pulse Rate [ 70 From Monitor] Respiratory 18 18 18 Rate Blood Pressure 102/51 102/51 101/49 O2 Sat by Pulse 98 97 98 Oximetry 11/10/18 11/10/18 11/10/18 00:10 00:20 00:30 Temperature Pulse Rate 68 69 70 Pulse Rate [ From Monitor] Respiratory 17 18 15 Rate Blood Pressure 101/49 101/49 114/56 O2 Sat by Pulse 99 98 97 Oximetry 11/10/18 11/10/18 11/10/18 00:37 00:40 00:50 Temperature Pulse Rate 69 70 70 Pulse Rate [ From Monitor] Respiratory 20 17 Rate Blood Pressure 114/56 114/56 114/56 O2 Sat by Pulse 98 96 99 Oximetry 11/10/18 11/10/18 11/10/18 01:00 01:10 01:20 Temperature Pulse Rate 69 70 69 Pulse Rate [ From Monitor] Respiratory 17 17 17 Rate Blood Pressure 112/51 112/51 112/51 O2 Sat by Pulse 98 99 100 Oximetry 11/10/18 11/10/18 11/10/18 01:30 01:40 01:50 Temperature Pulse Rate 69 69 69 Pulse Rate [ From Monitor] Respiratory 18 16 16 Rate Blood Pressure 99/50 99/50 99/50 O2 Sat by Pulse 99 100 98 Oximetry 0711/10/18 11/10/18 02:00 02:10 02:20 Temperature Pulse Rate 68 69 67 Pulse Rate [ 68 From Monitor] Respiratory 16 16 17 Rate Blood Pressure 103/53 103/53 103/53 O2 Sat by Pulse 99 98 98 Oximetry 11/10/18 11/10/18 11/10/18 02:30 02:40 02:50 Temperature Pulse Rate 69 68 67 Pulse Rate [ From Monitor] Respiratory 16 17 16 Rate Blood Pressure 110/59 110/59 110/59 O2 Sat by Pulse 98 98 97 Oximetry 11/10/18 11/10/18 11/10/18 03:00 03:10 03:20 Temperature Pulse Rate 69 71 67 Pulse Rate [ From Monitor] Respiratory 17 15 17 Rate Blood Pressure 105/59 105/59 105/59 O2 Sat by Pulse 98 99 98 Oximetry 11/10/18 11/10/18 11/10/18 03:30 03:40 03:50 Temperature Pulse Rate 68 69 68 Pulse Rate [ From Monitor] Respiratory 16 17 16 Rate Blood Pressure 108/58 105/59 105/59 O2 Sat by Pulse 99 98 98 Oximetry 11/10/18 11/10/18 11/10/18 03:57 04:00 04:10 Temperature Pulse Rate 68 68 71 Pulse Rate [ 68 From Monitor] Respiratory 18 18 Rate Blood Pressure 108/58 94/47 94/47 O2 Sat by Pulse 97 97 98 Oximetry 11/10/18 04:20 Temperature Pulse Rate 68 Pulse Rate [ From Monitor] Respiratory 17 Rate Blood Pressure 94/47 O2 Sat by Pulse 99 Oximetry Constitutional: no acute distress, other (elderly and chronically ill looking CF, normocephalic with mildly increase resp effort on MVS) Eyes: non-icteric ENT: oropharynx moist, other (ETT 23 cm NÉSTOR) Neck: supple, no lymphadenopathy, no JVD, other (no thyromegaly) Effort: mildly labored Ascultation: Bilateral: rales Percussion: Bilateral: not dull Cardiovascular: regular rate and rhythm Gastrointestinal: normoactive bowel sounds, soft, non-tender, non-distended Integumentary: rash, other (spider naevi) Extremities: no cyanosis, no edema, pulses normal, no ischemia or petechiae Neurologic: non-focal exam (grossly), pupils equal and round, CN II-XII normal, motor strength normal and Psychiatric: anxious CBC and BMP: 11/13/18 04:03 11/13/18 04:03 ABG, PT/INR, D-dimer: ABG POC ABG pH 7.427 (7.35-7.45) 11/10/18 04:14 POC ABG pCO2 39.3 (35-45) 11/10/18 04:14 POC ABG pO2 74 (80-105) L 11/10/18 04:14 POC ABG HCO3 25.9 (22-26 mml/L) 11/10/18 04:14 POC ABG Total CO2 27 (23-27mmol/L) 11/10/18 04:14 POC ABG O2 Sat 95 11/10/18 04:14 PT/INR, D-dimer PT 17.3 Sec. (12.2-14.9) H 11/08/18 11:47 INR 1.45 (0.87-1.13) H 11/08/18 11:47 Abnormal lab findings: Abnormal Labs 11/08/18 11/08/18 11/08/18 11:47 11:47 11:47 WBC 3.4 L MCH 26 L RDW 21.6 H Lymph % (Auto) Lymph # Seg Neutrophils % Monocytes % (Manual) 13.0 H Basophils % (Manual) 3.0 H Seg Neutrophils # Lymphocytes # (Manual) 0.6 L PT 17.3 H INR 1.45 H POC ABG pH POC ABG pCO2 POC ABG pO2 BUN Creatinine 0.6 L Glucose 130 H POC Glucose Total Bilirubin 1.50 H Alkaline Phosphatase 140 H Ammonia Total Creatine Kinase 27 L Total Protein 6.0 L Albumin 3.0 L Urine pH 11/08/18 11/08/18 11/08/18 11:47 12:00 14:01 WBC MCH RDW Lymph % (Auto) Lymph # Seg Neutrophils % Monocytes % (Manual) Basophils % (Manual) Seg Neutrophils # Lymphocytes # (Manual) PT INR POC ABG pH 7.452 H POC ABG pCO2 32.8 L POC ABG pO2 127 H BUN Creatinine Glucose POC Glucose Total Bilirubin Alkaline Phosphatase Ammonia 123.0 H Total Creatine Kinase Total Protein Albumin Urine pH 8.0 H 11/08/18 11/08/18 11/09/18 14:34 15:13 04:31 WBC MCH RDW Lymph % (Auto) Lymph # Seg Neutrophils % Monocytes % (Manual) Basophils % (Manual) Seg Neutrophils # Lymphocytes # (Manual) PT INR POC ABG pH 7.468 H POC ABG pCO2 POC ABG pO2 76 L 73 L BUN Creatinine Glucose POC Glucose 112 H Total Bilirubin Alkaline Phosphatase Ammonia Total Creatine Kinase Total Protein Albumin Urine pH 11/09/18 11/09/18 11/09/18 05:41 05:41 05:41 WBC MCH 26 L RDW 21.5 H Lymph % (Auto) 3.2 L Lymph # 0.3 L Seg Neutrophils % 89.4 H Monocytes % (Manual) Basophils % (Manual) Seg Neutrophils # 9.6 H Lymphocytes # (Manual) PT INR POC ABG pH POC ABG pCO2 POC ABG pO2 BUN 6 L Creatinine 0.4 L Glucose POC Glucose Total Bilirubin 1.80 H Alkaline Phosphatase 153 H Ammonia 75.0 H Total Creatine Kinase Total Protein Albumin 3.2 L Urine pH 11/09/18 11/10/18 11/10/18 11:44 00:11 04:14 WBC MCH RDW Lymph % (Auto) Lymph # Seg Neutrophils % Monocytes % (Manual) Basophils % (Manual) Seg Neutrophils # Lymphocytes # (Manual) PT INR POC ABG pH POC ABG pCO2 POC ABG pO2 74 L BUN Creatinine Glucose POC Glucose 114 H 134 H Total Bilirubin Alkaline Phosphatase Ammonia Total Creatine Kinase Total Protein Albumin Urine pH Chest x-ray: image reviewed (ETT in good position) Allied health notes reviewed: nursing
[2018-11-10] MEDS: DUONEB *Not for PRN Use IH SCH ×3 (07:57→19:37)
[2018-11-10 08:49] LABS: Hematocrit 33.4 % (30.3-42.9); Hemoglobin 10.5 gm/dl (10.1-14.3); Mean Corpuscular HGB Conc 32 % (30-34); Mean Corpuscular Volume 82 fl (79-97); Platelet Count 146 K/mm3 (140-440)
[2018-11-10 08:56] LABS: Red Cell Distribution Width 21.9 % (13.2-15.2)
[2018-11-10 09:05] LABS: Alanine Aminotransferase 19 units/L (7-56); Albumin 2.8 g/dL (3.9-5); BUN/Creatinine Ratio 16; Blood Urea Nitrogen 8 mg/dL (7-17); Calcium 9.2 mg/dL (8.4-10.2); Hemolysis Index 10
--- NOTE | 2018-11-10 09:08 | Progress Note ---
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 Pt is intubated and unable to provide history. Pt history taken from EMS, and ED staff, and medical record. As per staff, the patient was in her usual state of health at bedtime which was around 2030 hrs. Pt was found to be confused with decreased level of consciousness. EMS notified and upon arrival the patient was found to be in distress. Pt transported to [facility]. Pt seen and evaluated in ED and found to have Encephalopathy, and Acute Hypoxemic Respiratory Failure and was unable to protect her airway. Pt intubated and placed on vent support. No further history obtainable. Patient admitted to ICU. Acute respiratory failure s/p intubated, on vent Pulm following Hepatic encephalopathy with hyperammonia Improved down to 62. Lactulose Consult GI Alcoholic cirrhosis of liver Alcohol use Hypertension Monitor BP COPD Seizure disorder seizure precautions Continue Keppra and Lamictal. Hypothyroidism On Levothyroxine Bipolar disorder Dementia Full code stsatus History Interval history: Still intubated Hospitalist Physical - Physical exam Narrative exam: Gen: Not in acute distress, intubated, sedated, HEENT: Normocephalic, atraumatic Neck: supple, no JVD Heart: S1 and S2 reg, no murmurs, rubs or gallop Lungs: Clear, no crackles, no wheeze Abd: soft, non tender, non distended, normal BS Ext: No edema, no clubbing, no cyanosis, Neuro: Sedated, intubated - Constitutional Vitals: Temp Pulse Resp BP Pulse Ox 98 F 71 20 103/56 71 L 11/10/18 08:00 11/10/18 08:55 11/10/18 08:30 11/10/18 08:55 11/10/18 08:55 Results - Labs CBC & Chem 7: 11/10/18 08:19 11/10/18 08:19 Labs: Laboratory Last Values WBC 14.8 K/mm3 (4.5-11.0) H 11/10/18 08:19 RBC 4.10 M/mm3 (3.65-5.03) 11/10/18 08:19 Hgb 10.5 gm/dl (10.1-14.3) 11/10/18 08:19 Hct 33.4 % (30.3-42.9) 11/10/18 08:19 MCV 82 fl (79-97) 11/10/18 08:19 MCH 26 pg (28-32) L 11/10/18 08:19 MCHC 32 % (30-34) 11/10/18 08:19 RDW 21.9 % (13.2-15.2) H 11/10/18 08:19 Plt Count 146 K/mm3 (140-440) 11/10/18 08:19 Lymph % (Auto) 3.2 % (13.4-35.0) L 11/09/18 05:41 Brooke % (Auto) 6.5 % (0.0-7.3) 11/09/18 05:41 Eos % (Auto) 0.3 % (0.0-4.3) 11/09/18 05:41 Baso % (Auto) 0.6 % (0.0-1.8) 11/09/18 05:41 Lymph # 0.3 K/mm3 (1.2-5.4) L 11/09/18 05:41 Brooke # 0.7 K/mm3 (0.0-0.8) 11/09/18 05:41 Eos # 0.0 K/mm3 (0.0-0.4) 11/09/18 05:41 Baso # 0.1 K/mm3 (0.0-0.1) 11/09/18 05:41 Add Manual Diff Complete 11/08/18 11:47 Total Counted 100 11/08/18 11:47 Seg Neutrophils % 89.4 % (40.0-70.0) H 11/09/18 05:41 Seg Neuts % (Manual) 65.0 % (40.0-70.0) 11/08/18 11:47 0 % 11/08/18 11:47 17.0 % (13.4-35.0) 11/08/18 11:47 Reactive Lymphs % (Man) 0 % 11/08/18 11:47 13.0 % (0.0-7.3) H 11/08/18 11:47 2.0 % (0.0-4.3) 11/08/18 11:47 3.0 % (0.0-1.8) H 11/08/18 11:47 0 % 11/08/18 11:47 0 % 11/08/18 11:47 0 % 11/08/18 11:47 0 % 11/08/18 11:47 Nucleated RBC % Not Reportable 11/08/18 11:47 Seg Neutrophils # 9.6 K/mm3 (1.8-7.7) H 11/09/18 05:41 Seg Neutrophils # Man 2.2 K/mm3 (1.8-7.7) 11/08/18 11:47 Band Neutrophils # 0.0 K/mm3 11/08/18 11:47 0.6 K/mm3 (1.2-5.4) L 11/08/18 11:47 Abs React Lymphs (Man) 0.0 K/mm3 11/08/18 11:47 0.4 K/mm3 (0.0-0.8) 11/08/18 11:47 0.1 K/mm3 (0.0-0.4) 11/08/18 11:47 0.1 K/mm3 (0.0-0.1) 11/08/18 11:47 0.0 K/mm3 11/08/18 11:47 0.0 K/mm3 11/08/18 11:47 0.0 K/mm3 11/08/18 11:47 Blast Cells # 0.0 K/mm3 11/08/18 11:47 WBC Morphology Not Reportable 11/08/18 11:47 Hypersegmented Neuts Not Reportable 11/08/18 11:47 Hyposegmented Neuts Not Reportable 11/08/18 11:47 Hypogranular Neuts Not Reportable 11/08/18 11:47 Not Reportable 11/08/18 11:47 Not Reportable 11/08/18 11:47 Not Reportable 11/08/18 11:47 Not Reportable 11/08/18 11:47 Not Reportable 11/08/18 11:47 Not Reportable 11/08/18 11:47 Consistent w auto 11/08/18 11:47 Not Reportable 11/08/18 11:47 Plt Clumps, EDTA Not Reportable 11/08/18 11:47 Not Reportable 11/08/18 11:47 Few 11/08/18 11:47 Not Reportable 11/08/18 11:47 Plt Morphology Comment Not Reportable 11/08/18 11:47 RBC Morphology Not Reportable 11/08/18 11:47 Dimorphic RBCs Not Reportable 11/08/18 11:47 Not Reportable 11/08/18 11:47 Not Reportable 11/08/18 11:47 1+ 11/08/18 11:47 Few 11/08/18 11:47 Not Reportable 11/08/18 11:47 Not Reportable 11/08/18 11:47 Not Reportable 11/08/18 11:47 Not Reportable 11/08/18 11:47 Not Reportable 11/08/18 11:47 Not Reportable 11/08/18 11:47 Rare 11/08/18 11:47 Not Reportable 11/08/18 11:47 Not Reportable 11/08/18 11:47 Not Reportable 11/08/18 11:47 Not Reportable 11/08/18 11:47 Not Reportable 11/08/18 11:47 Not Reportable 11/08/18 11:47 Not Reportable 11/08/18 11:47 Few 11/08/18 11:47 Acanthocytes (Spur) Not Reportable 11/08/18 11:47 Rouleaux Not Reportable 11/08/18 11:47 Not Reportable 11/08/18 11:47 Not Reportable 11/08/18 11:47 Not Reportable 11/08/18 11:47 Not Reportable 11/08/18 11:47 Hem Pathologist Commnt No 11/08/18 11:47 PT 17.3 Sec. (12.2-14.9) H 11/08/18 11:47 INR 1.45 (0.87-1.13) H 11/08/18 11:47 APTT 30.4 Sec. (24.2-36.6) 11/08/18 11:47 15.4 Sec. (15.1-19.6) 11/08/18 11:47 POC ABG pH 7.427 (7.35-7.45) 11/10/18 04:14 POC ABG pCO2 39.3 (35-45) 11/10/18 04:14 POC ABG pO2 74 (80-105) L 11/10/18 04:14 POC ABG HCO3 25.9 (22-26 mml/L) 11/10/18 04:14 POC ABG Total CO2 27 (23-27mmol/L) 11/10/18 04:14 POC ABG O2 Sat 95 11/10/18 04:14 POC ABG Base Excess 2 ((-2) - (+3)mmol/L) 11/10/18 04:14 50 % 11/10/18 04:14 Sodium 142 mmol/L (137-145) 11/10/18 08:19 Potassium 3.7 mmol/L (3.6-5.0) 11/10/18 08:19 Chloride 106.0 mmol/L (98-107) 11/10/18 08:19 Carbon Dioxide 25 mmol/L (22-30) 11/10/18 08:19 15 mmol/L 11/10/18 08:19 BUN 8 mg/dL (7-17) 11/10/18 08:19 0.5 mg/dL (0.7-1.2) L 11/10/18 08:19 Estimated GFR > 60 ml/min 11/10/18 08:19 16 % 11/10/18 08:19 Glucose 117 mg/dL (65-100) H 11/10/18 08:19 POC Glucose 134 (70-105) H 11/10/18 00:11 Lactic Acid 1.90 mmol/L (0.7-2.0) 11/09/18 13:15 Calcium 9.2 mg/dL (8.4-10.2) 11/10/18 08:19 Magnesium 1.80 mg/dL (1.7-2.3) 11/08/18 11:47 1.30 mg/dL (0.1-1.2) H 11/10/18 08:19 AST 34 units/L (5-40) 11/10/18 08:19 ALT 19 units/L (7-56) 11/10/18 08:19 155 units/L (35-129) H 11/10/18 08:19 75.0 umol/L (25-60) H 11/09/18 05:41 27 units/L (30-135) L 11/08/18 11:47 CK-MB (CK-2) < 1.0 ng/mL (0.0-4.0) 11/08/18 11:47 CK-MB (CK-2) Rel Index 3.7 (0-4) 11/08/18 11:47 < 0.010 ng/mL (0.00-0.029) 11/08/18 11:47 0.60 mg/dL (0.00-1.30) 11/09/18 05:41 6.0 g/dL (6.3-8.2) L 11/10/18 08:19 2.8 g/dL (3.9-5) L 11/10/18 08:19 0.9 % 11/10/18 08:19 TSH 2.370 mlU/mL (0.270-4.200) 11/08/18 11:47 Free T4 0.92 ng/dL (0.76-1.46) 11/08/18 11:47 Jihan (Yellow) 11/08/18 12:00 Cloudy (Clear) 11/08/18 12:00 8.0 (5.0-7.0) H 11/08/18 12:00 Ur Specific [place] 1.017 (1.003-1.030) 11/08/18 12:00 <15 mg/dl mg/dL (Negative) 11/08/18 12:00 Neg mg/dL (Negative) 11/08/18 12:00 Neg mg/dL (Negative) 11/08/18 12:00 Neg (Negative) 11/08/18 12:00 Neg (Negative) 11/08/18 12:00 Neg (Negative) 11/08/18 12:00 < 2.0 mg/dL (<2.0) 11/08/18 12:00 Ur Leukocyte Esterase Neg (Negative) 11/08/18 12:00 4.0 /HPF (0.0-6.0) 11/08/18 12:00 2.0 /HPF (0.0-6.0) 11/08/18 12:00 U Epithel Cells (Auto) 1.0 /HPF (0-13.0) 11/08/18 12:00 3+ /HPF (Negative) 11/08/18 12:00 Few /HPF 11/08/18 12:00 Plasma/Serum Alcohol < 0.01 % (0-0.07) 11/08/18 11:47 Active Medications - Current Medications Current Medications: Generic Name Dose Route Start Last Admin Trade Name Freq PRN Reason Stop Dose Admin Albuterol 2.5 mg 11/08/18 13:32 Proventil IH Q3HRT PRN Shortness Of Breath Albuterol/Ipratropium 1 ampul 11/10/18 08:00 11/10/18 07:57 Duoneb *Not For Prn Use* IH 1 ampul TIDRT HUONG Administration Lipase/Protease/Amylase 1 each 11/08/18 15:[address] 10,500 Unit FEEDTUBE PRN PRN For Clogged Feeding Tube Famotidine 20 mg 11/09/18 12:00 11/09/18 12:00 Pepcid PO 20 mg QDAY HUONG Administration Fentanyl 50 mcg 11/08/18 13:51 Sublimaze IV Q10MIN PRN ANALGESIA Fluticasone Propionate 50 mcg 11/09/18 10:00 11/09/18 09:09 Flonase NS Not Given QDAY HUONG Folic Acid 1 mg 11/09/18 10:00 11/09/18 09:30 Folvite PO 1 mg QDAY HUONG Administration Hydrophilic Ointment 1 applic 11/08/18 11:37 Vaseline Lip Therapy TP Q2HR PRN Dry Lips Fentanyl Citrate 2,000 mcg in 100 mls @ 3.275 mls/hr 11/08/18 14:00 11/08/18 22:08 Fentanyl Drip Premix IV 0 mcg/kg/hr TITR HUONG 0 mls/hr Titration Protocol 1 MCG/KG/HR Propofol 1,000 mg in 100 mls @ 1.965 mls/hr 11/08/18 15:00 11/08/18 20:20 Diprivan 10 Mg/Ml IV 0 mcg/kg/min TITR HUONG 0 mls/hr Titration Protocol 5 MCG/KG/MIN Lactulose 30 gm 11/08/18 20:00 11/09/18 20:46 Cephulac PO 30 gm TID HUONG Administration Lamotrigine 25 mg 11/08/18 22:00 11/09/18 21:39 Lamictal PO 25 mg BID HUONG Administration Levetiracetam 1,500 mg 11/08/18 22:00 11/09/18 21:39 Keppra PO 1,500 mg BID HUONG Administration Levothyroxine Sodium 75 mcg 11/09/18 06:00 11/09/18 06:20 Synthroid PO 75 mcg DAILY@0600 HUONG Administration Lorazepam 2 mg 11/08/18 14:18 Ativan IV Q1HR PRN CIWA-Ar 8-15 Multi-Ingred Cream/Lotion/Oil/Oint 1 applic 11/08/18 11:37 Artificial Tears Ophth Oint OU Q4HR PRN Dry Eye(s) Multivitamins 1 each 11/09/18 10:00 11/09/18 09:30 Theragran Tab PO 1 each DAILY HUONG Administration Propranolol HCl 40 mg 11/09/18 10:00 11/09/18 09:08 Inderal PO 40 mg QDAY HUONG Administration Rifaximin 550 mg 11/08/18 22:00 11/09/18 21:39 Xifaxan PO 550 mg BID HUONG Administration Simple Syrup 15 ml 11/08/18 15:47 Simple Syrup FEEDTUBE PRN PRN Hypoglycemia Simple Syrup 30 ml 11/08/18 15:47 Simple Syrup FEEDTUBE PRN PRN Hypoglycemia Sodium Bicarbonate 325 mg 11/08/18 15:47 Sodium Bicarbonate FEEDTUBE PRN PRN For Clogged Feeding Tube Sodium Chloride 5 ml 11/08/18 11:37 Nacl 0.9% 500 Ml IV DIRECT PRN [employer] Sodium Chloride 10 ml 11/08/18 22:00 11/09/18 21:39 Sodium Chloride Flush Syringe 10 Ml IV 10 ml BID HUONG Administration Sodium Chloride 10 ml 11/08/18 13:32 Sodium Chloride Flush Syringe 10 Ml IV PRN PRN LINE FLUSH Spironolactone 100 mg 11/09/18 10:00 11/09/18 09:06 Aldactone PO 100 mg QDAY HUONG Administration Thiamine HCl 100 mg 11/09/18 10:00 11/09/18 09:30 Vitamin B-1 PO 100 mg QDAY HUONG Administration Nutrition/Malnutrition Assess - Dietary Evaluation Nutrition/Malnutrition Findings: Nutrition Notes Start: 11/08/18 15:38 Freq: Status: Active Protocol: Document 11/08/18 15:38 RM (Rec: 11/08/18 15:47 RM [id number]) Nutrition Notes Need for Assessment generated from: MD Order Initial or Follow up Assessment Current Diagnosis COPD,Hypertension Other Pertinent Diagnosis Hx CVA,GERD, Dementia, ESLD Current Diet NPO Labs/Tests Reviewed Pertinent Medications Reviewed Height 5 ft 8 in Weight 65.499 kg [place] Body Weight (kg) 63.63 BMI 21.9 Subjective/Other Information Consulted for TF recommendation. Pt on vent. Burn Absent Trauma Absent #1 Nutrition Diagnosis Inadequate oral intake Etiology on vent As Evidenced by Signs and Symptoms NPO status Is patient on ventilator? Yes Is Patient Ambulatory and/or Out of Bed No REE-([facility] Jemd-confined to bed) 1527.264 Calculation Used for Recommendations [facility] Additional Notes Protein Needs: 79-98g (1.2-1. 6g/kg) Fluid Needs: 1 ml/kcal Nutrition Intervention Nutrition Support: Vital 1.2 at 55 ml/hr. Water flush of 100 mls q 4 hrs . Kcal 1,584 Protein (gm) 99 Fluid (mL) 1,071 Goal #1 TF tolerance Goal #2 Meet at least 80% of calorie and protein needs via TF Anticipated Discharge Needs: Unable to determine at this time Follow-Up By: 11/10/18 Additional Comments Follow for new TF
[2018-11-10] MEDS: CEPHULAC PO SCH ×3 (09:53→21:21)
[2018-11-10] MEDS: INDERAL PO SCH (09:54)
[2018-11-10] MEDS: FLONASE NS SCH (09:54)
[2018-11-10] MEDS: KEPPRA PO SCH ×2 (09:54→21:20)
[2018-11-10] MEDS: XIFAXAN PO SCH ×2 (09:55→21:21)
[2018-11-10] MEDS: LaMICtal PO SCH ×2 (09:55→21:22)
[2018-11-10] MEDS: THERAGRAN Tab PO SCH (09:56)
[2018-11-10] MEDS: FOLVITE PO SCH (09:56)
[2018-11-10] MEDS: ALDACTONE PO SCH (09:56)
[2018-11-10] MEDS: VITAMIN B-1 PO SCH (09:56)
[2018-11-10] MEDS: PEPCID PO SCH (09:56)
[2018-11-10] MEDS: SODIUM CHLORIDE FLUSH SYRINGE 10 ML IV SCH ×2 (09:58→21:22)
--- NOTE | 2018-11-10 11:38 | Gastroenterology Progress Note ---
Assessment and Plan 1.hepatic encephalopathy 2.H/o alcoholic cirrhosis with varices -WBC 14.8-trending up -H/H WNL (11.6/36.0) -plt 146, INR 1.45 -LFTs-stable -ammonia 62 -trended down (123 on admission) -abdominal U/S 09/22/2018 showed advanced cirrhosis and gallstones but no mass or ascites -repeat U/S pending r/o ascites given leukocytosis- further sepsis w/u per primary team -Last EGD 06/23/17 that showed 0-1+ distal esophageal varices and mild portal hypertension gastropathy -etiology-patient has a hx of alcoholic cirrhosis 2/2 former ETOH abuse with varices and HE -Patient is currently on vent in ICU. No evidence of abd pain, N/V, or signs of bleeding. Tolerating TFs. -continue PPI, diuretics, xifaxan, propranalol, and lactulose (titrate to goal of BMs x 3/day) -continue to trend labs (INR in am) and supportive care -will follow Subjective Date of service: 11/10/18 Principal diagnosis: Hepatic encephalopathy Interval history: Patient remains on vent in ICU. No acute distress. No evidence of abd pain, N/V, or signs of bleeding. Objective - Constitutional Vitals: Temp Pulse Resp BP Pulse Ox 98 F 70 20 111/60 71 L 11/10/18 08:00 11/10/18 09:56 11/10/18 08:30 11/10/18 09:56 11/10/18 08:55 General appearance: no acute distress, other (on vent in ICU) - Cardiovascular Rhythm: regular - Gastrointestinal General gastrointestinal: Present: soft, non-distended, normal bowel sounds - Labs CBC & Chem 7: 11/10/18 08:19 11/10/18 08:19 Labs: Laboratory Results - last 24 hr 11/09/18 11/09/18 11/09/18 05:41 11:44 13:15 WBC RBC Hgb Hct MCV MCH MCHC RDW Plt Count POC ABG pH POC ABG pCO2 POC ABG pO2 POC ABG HCO3 POC ABG Total CO2 POC ABG O2 Sat POC ABG Base Excess FiO2 Sodium Potassium Chloride Carbon Dioxide Anion Gap BUN Creatinine Estimated GFR BUN/Creatinine Ratio Glucose POC Glucose 114 H Lactic Acid 1.90 Calcium Total Bilirubin AST ALT Alkaline Phosphatase Ammonia C-Reactive Protein 0.60 Total Protein Albumin Albumin/Globulin Ratio 11/10/18 11/10/18 11/10/18 00:11 04:14 08:19 WBC 14.8 H RBC 4.10 Hgb 10.5 Hct 33.4 MCV 82 MCH 26 L MCHC 32 RDW 21.9 H Plt Count 146 POC ABG pH 7.427 POC ABG pCO2 39.3 POC ABG pO2 74 L POC ABG HCO3 25.9 POC ABG Total CO2 27 POC ABG O2 Sat 95 POC ABG Base Excess 2 FiO2 50 Sodium Potassium Chloride Carbon Dioxide Anion Gap BUN Creatinine Estimated GFR BUN/Creatinine Ratio Glucose POC Glucose 134 H Lactic Acid Calcium Total Bilirubin AST ALT Alkaline Phosphatase Ammonia C-Reactive Protein Total Protein Albumin Albumin/Globulin Ratio 11/10/18 11/10/18 08:19 08:19 WBC RBC Hgb Hct MCV MCH MCHC RDW Plt Count POC ABG pH POC ABG pCO2 POC ABG pO2 POC ABG HCO3 POC ABG Total CO2 POC ABG O2 Sat POC ABG Base Excess FiO2 Sodium 142 Potassium 3.7 Chloride 106.0 Carbon Dioxide 25 Anion Gap 15 BUN 8 Creatinine 0.5 L Estimated GFR > 60 BUN/Creatinine Ratio 16 Glucose 117 H POC Glucose Lactic Acid Calcium 9.2 Total Bilirubin 1.30 H AST 34 ALT 19 Alkaline Phosphatase 155 H Ammonia 62.0 H C-Reactive Protein Total Protein 6.0 L Albumin 2.8 L Albumin/Globulin Ratio 0.9
--- NOTE | 2018-11-10 12:25 | Consultation ---
History of Present Illness - Reason for Consult Consult date: 11/10/18 Pneumonia, UTI Requesting physician: JONATAN PEDRAZA - History of Present Illness The patient is a 62-year-old residential resident with end-stage liver disease attributed to alcoholic cirrhosis, esophageal varices, hypertension, COPD, dementia, seizure disorder, history of CVA was brought to the emergency room on 11/08/2018 with altered mental status. She was intubated due to inability to protect her airway and admitted to ICU. She was noted to be encephalopathic with elevated ammonia. GI has been following. WBC on admission was 3.4K, increased to 14.8 today. She has not been on any antibiotics. She has been having low-grade temperatures since yesterday. Tracheal aspirate is growing Staphylococcus aureus and hence infectious diseases was consulted. Review of Systems: Unable to open due to mental status and ventilator. Past History Past Medical History: other (as per HPI) Past Surgical History: hysterectomy, Other (Brain surgery') Social history: single, other (former ETOH). denies: smoking, alcohol abuse, prescription drug abuse Family history: CAD, hypertension Medications and Allergies Allergies Allergy/AdvReac Type Severity Reaction Status Date / Time No Known Allergies Allergy Verified 09/20/18 17:09 Home Medications Medication Instructions Recorded Confirmed Last Taken Type Folic Acid [Folvite] 1 mg PO QDAY 11/02/13 11/08/18 06/22/17 History Multivitamin [Multi-Vitamin Daily] 1 each PO DAILY 11/02/13 11/08/18 06/22/17 History Aspirin [Aspirin BABY CHEW TAB] 1 tab PO DAILY 05/10/14 11/08/18 06/22/17 History Plavix 75 mg PO DAILY #30 08/16/17 11/08/18 Unknown Rx Thiamine [Vitamin B-1] 100 mg PO QDAY #30 tablet 08/16/17 11/08/18 Unknown Rx lamoTRIgine [LaMICtal] 25 mg PO BID #50 tablet 08/16/17 11/08/18 Unknown Rx Rifaximin [Xifaxan] 550 mg PO BID #60 tablet 07/30/18 11/08/18 Unknown Rx ALBUTEROL NEB's [Proventil 0.083% 2.5 mg IH Q6HRT PRN #90 nebu 08/04/18 11/08/18 Unknown Rx NEBS] Ipratropium/Albuterol Sulfate 1 ampul IH TIDRT #90 ampul.neb 08/04/18 11/08/18 Unknown Rx [DUONEB *Not for PRN Use*] Fluticasone [Flonase] 1 spray NS QDAY 09/22/18 11/08/18 Unknown History Propranolol [Inderal] 40 mg PO QDAY 09/22/18 11/08/18 Unknown History Lactulose [Cephulac] 30 gm PO TID oral.liqd 10/05/18 11/08/18 Unknown Rx Levothyroxine [Synthroid] 75 mcg PO DAILY@0600 tablet 10/05/18 11/08/18 Unknown Rx levETIRAcetam [Keppra] 1,500 mg PO BID oral.liqd 10/05/18 11/08/18 Unknown Rx Famotidine [Pepcid] 40 mg PO QHS 11/08/18 11/08/18 Unknown History Spironolactone [Aldactone] 100 mg PO QDAY 11/08/18 11/08/18 Unknown History Active Meds: Active Medications Albuterol (Proventil) 2.5 mg IH Q3HRT PRN PRN Reason: Shortness Of Breath Albuterol/Ipratropium (Duoneb *Not For Prn Use*) 1 ampul IH TIDRT [facility] Last Admin: 11/10/18 07:57 Dose: 1 ampul Documented by: Lipase/Protease/Amylase (Pancreazabi Dr 10,500 Unit) 1 each FEEDTUBE PRN PRN PRN Reason: For Clogged Feeding Tube Famotidine (Pepcid) 20 mg PO QDAY [facility] Last Admin: 11/10/18 09:56 Dose: 20 mg Documented by: Fentanyl (Sublimaze) 50 mcg IV Q10MIN PRN PRN Reason: ANALGESIA Fluticasone Propionate (Flonase) 50 mcg NS QDAY [facility] Last Admin: 11/10/18 09:54 Dose: 50 mcg Documented by: Folic Acid (Folvite) 1 mg PO QDAY [facility] Last Admin: 11/10/18 09:56 Dose: 1 mg Documented by: Hydrophilic Ointment (Vaseline Lip Therapy) 1 applic TP Q2HR PRN PRN Reason: Dry Lips Fentanyl Citrate (Fentanyl Drip Premix) 2,000 mcg in 100 mls @ 3.275 mls/hr IV TITR [facility]; Protocol Last Titration: 11/08/18 22:08 Dose: 0 mcg/kg/hr, 0 mls/hr Documented by: Propofol (Diprivan 10 Mg/Ml) 1,000 mg in 100 mls @ 1.965 mls/hr IV TITR [facility]; Protocol Last Titration: 11/08/18 20:20 Dose: 0 mcg/kg/min, 0 mls/hr Documented by: Lactulose (Cephulac) 30 gm PO TID [facility] Last Admin: 11/10/18 09:53 Dose: 30 gm Documented by: Lamotrigine (Lamictal) 25 mg PO BID [facility] Last Admin: 11/10/18 09:55 Dose: 25 mg Documented by: Levetiracetam (Keppra) 1,500 mg PO BID [facility] Last Admin: 11/10/18 09:54 Dose: 1,500 mg Documented by: Levothyroxine Sodium (Synthroid) 75 mcg PO DAILY@0600 [facility] Last Admin: 11/09/18 06:20 Dose: 75 mcg Documented by: Lorazepam (Ativan) 2 mg IV Q1HR PRN PRN Reason: CIWA-Ar 8-15 Multi-Ingred Cream/Lotion/Oil/Oint (Artificial Tears Ophth Oint) 1 applic OU Q4HR PRN PRN Reason: Dry Eye(s) Multivitamins (Theragran Tab) 1 each PO DAILY [facility] Last Admin: 11/10/18 09:56 Dose: 1 each Documented by: Propranolol HCl (Inderal) 40 mg PO QDAY [facility] Last Admin: 11/10/18 09:54 Dose: 40 mg Documented by: Rifaximin (Xifaxan) 550 mg PO BID [facility] Last Admin: 11/10/18 09:55 Dose: 550 mg Documented by: Simple Syrup (Simple Syrup) 15 ml FEEDTUBE PRN PRN PRN Reason: Hypoglycemia Simple Syrup (Simple Syrup) 30 ml FEEDTUBE PRN PRN PRN Reason: Hypoglycemia Sodium Bicarbonate (Sodium Bicarbonate) 325 mg FEEDTUBE PRN PRN PRN Reason: For Clogged Feeding Tube Sodium Chloride (Nacl 0.9% 500 Ml) 5 ml IV DIRECT PRN PRN Reason: ARTERIAL RN NURSERY Sodium Chloride (Sodium Chloride Flush Syringe 10 Ml) 10 ml IV BID [facility] Last Admin: 11/10/18 09:58 Dose: 10 ml Documented by: Sodium Chloride (Sodium Chloride Flush Syringe 10 Ml) 10 ml IV PRN PRN PRN Reason: LINE FLUSH Spironolactone (Aldactone) 100 mg PO QDAY [facility] Last Admin: 11/10/18 09:56 Dose: 100 mg Documented by: Thiamine HCl (Vitamin B-1) 100 mg PO QDAY [facility] Last Admin: 11/10/18 09:56 Dose: 100 mg Documented by: Physical Examination - Physical Exam Narrative exam: Physical Exam: Constitutional: sedated, intubated Head, Ears, Nose: Normocephalic, atraumatic. External ears, nose normal Eyes: Conjunctivae/corneas clear. No icterus. No ptosis. Neck: Supple, no meningeal signs Oral: intubated Cardiovascular: S1, S2 normal. Respiratory: Good air entry, clear to auscultation bilaterally GI: Soft, non-tender; bowel sounds normal. No peritoneal signs Musculoskeletal: No pedal edema, no cyanosis. Skin: No rash or abscess Hem/Lymphatic: No palpable cervical or supraclavicular nodes. No lymphangitis Psych: no agitation Neurological: sedated, intubated, on vent - Constitutional Vitals: Vital Signs Temp Pulse Resp BP Pulse Ox 98 F 67 12 116/63 96 11/10/18 08:00 11/10/18 11:57 11/10/18 11:57 11/10/18 11:57 11/10/18 11:57 Temperature -Last 24 Hours Temperature 98 F Temperature 100.6 F Temperature 100.0 F Results - Labs CBC & Chem 7: 11/10/18 08:19 11/10/18 08:19 Labs: Abnormal lab results 11/10/18 11/10/18 11/10/18 Range/Units 00:11 04:14 08:19 WBC 14.8 H (4.5-11.0) K/mm3 MCH 26 L (28-32) pg RDW 21.9 H (13.2-15.2) % POC ABG pO2 74 L (80-105) Creatinine (0.7-1.2) mg/dL Glucose (65-100) mg/dL POC Glucose 134 H (70-105) Total Bilirubin (0.1-1.2) mg/dL Alkaline Phosphatase (35-129) units/L Ammonia (25-60) umol/L Total Protein (6.3-8.2) g/dL Albumin (3.9-5) g/dL 11/10/18 11/10/18 Range/Units 08:19 08:19 WBC (4.5-11.0) K/mm3 MCH (28-32) pg RDW (13.2-15.2) % POC ABG pO2 (80-105) Creatinine 0.5 L (0.7-1.2) mg/dL Glucose 117 H (65-100) mg/dL POC Glucose (70-105) Total Bilirubin 1.30 H (0.1-1.2) mg/dL Alkaline Phosphatase 155 H (35-129) units/L Ammonia 62.0 H (25-60) umol/L Total Protein 6.0 L (6.3-8.2) g/dL Albumin 2.8 L (3.9-5) g/dL - Imaging and Cardiology Chest x-ray: report reviewed, image reviewed (CXR shows no evidence of pneumonia. It shows a small 3 cm opacity that appears to be retrocardiac in the left lung base) Assessment and Plan Cultures: 11/08/2018 blood cultures: In progress 11/08/2018 urine culture: 10K-100K Enterococcus species 11/08/2018 tracheal aspirate: Usual respiratory faustina with moderate growth of Staphylococcus aureus A/P: 62-year-old residential resident with end-stage liver disease attributed to alcoholic cirrhosis, esophageal varices, hypertension, COPD, dementia, seizure disorder, history of CVA was brought to the emergency room on 11/08/2018 with altered mental status. 1) Leucocytosis: etiology unclear. UA not consistent with UTI. CXR doesn't show a pneumonia, except a 3 cm retrocardiac opacity, that was noted on CTA chest from 09/2018 that showed " Prominent soft tissue density lesion near the left infrahilar region from the GE junction to the left pulmonary vein may represent varices with collateralized return. " No clinical concern for SBP. She does have elevated LFTs and alk phos higher than prior, will get RUQ US. 2) Enterococcus on urine culture: no pyuria. Unlikely UTI. 3) Staph aureus in tracheal aspirate: no pneumonia. 4) ESLD: GI following. On lactulose, rifaximin. 5) Acute encephalopathy Recs: - started IV Ceftriaxone and IV Vancomycin with PK consult - follow up WBC and fever curve - RUQ US ordered Akshat Powell MD, FACP [facility] C: [phone] O: [phone] F: [phone]
[2018-11-10] MEDS ORDERED: VANCOMYCIN PHARMACY TO DOSE IV SCH (13:00)
[2018-11-10] MEDS ORDERED: VANCOMYCIN 1,250 MG in NACL 0.9% 250ML 250 ML IV ONE (14:00)
[2018-11-10] MEDS: ROCEPHIN/NS 1 GM/50 ML 1 GM/50 ML BAG IV SCH (14:45)
--- NOTE | 2018-11-10 17:15 | Ultrasound Report ---
ULTRASOUND ABDOMEN, COMPLETE INDICATION: abdominal pain, assess for ascites COMPARISON: None available. FINDINGS: Pancreas: Normal. Abdominal Aorta: Normal. IVC: Normal. Liver: Liver is somewhat small with a coarse echotexture and a nodular surface/contour. No intrinsic hepatic lesions are seen. Gallbladder: There are a few small gallstones. The gallbladder is otherwise unremarkable. Bile ducts: Normal. Common Bile Duct measures 3 mm. Right Kidney: Normal. Left Kidney: Normal. Spleen: Spleen is mildly enlarged, measuring 14 cm in length. Free fluid: None. Additional Findings: None. IMPRESSION: 1. The liver has a cirrhotic configuration. Portal hypertension is evidenced by mild splenomegaly. No ascites is seen. 2. Cholelithiasis. Signer Name: Edil Velazquez MD Signed: 11/10/2018 5:10 PM Workstation Name: [id number]
[2018-11-10] MEDS ORDERED: CEPHULAC PR ONE (20:13)
--- NOTE | 2018-11-11 03:23 | XRay Report ---
CHEST 1 VIEW INDICATION / CLINICAL INFORMATION: follow up respiratory failure. COMPARISON: 11/10/2018 FINDINGS: SUPPORT DEVICES: ET tube and NG tube remain in stable position. HEART / MEDIASTINUM: No significant abnormality. LUNGS / PLEURA: Mild pulmonary vascular congestion persist unchanged. Right lung is otherwise clear. There continues to be some mild left basilar pleural-parenchymal disease as well as masslike density in the retrocardiac region of the left lung base. No pneumothorax. ADDITIONAL FINDINGS: No significant additional findings. IMPRESSION: 1. Stable appearance of the chest radiograph. Signer Name: Lawanda Fletcher MD Signed: 11/11/2018 3:18 AM Workstation Name: [id number]
[2018-11-11] MEDS: VANCOMYCIN/NS 1 GM/250 ML 1 GM/250 ML BAG IV SCH ×2 (05:00→16:52)
[2018-11-11 05:20] LABS: Hemoglobin 10.5 gm/dl (10.1-14.3); Mean Corpuscular HGB Conc 32 % (30-34); Mean Corpuscular Volume 81 fl (79-97); Platelet Count 164 K/mm3 (140-440); Red Blood Count 4.07 M/mm3 (3.65-5.03)
[2018-11-11 05:30] LABS: INR 1.56 (0.87-1.13)
[2018-11-11 05:31] LABS: Red Cell Distribution Width 22.4 % (13.2-15.2)
[2018-11-11 05:37] LABS: Alanine Aminotransferase 17 units/L (7-56); Albumin 2.8 g/dL (3.9-5); BUN/Creatinine Ratio 28; Blood Urea Nitrogen 11 mg/dL (7-17); Calcium 9.6 mg/dL (8.4-10.2); Hemolysis Index 0
[2018-11-11] MEDS: SYNTHROID PO SCH ×2 (06:29→06:37)
--- NOTE | 2018-11-11 07:58 | Progress Note ---
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 Pt is intubated and unable to provide history. Pt history taken from EMS, and ED staff, and medical record. As per staff, the patient was in her usual state of health at bedtime which was around 2030 hrs. Pt was found to be confused with decreased level of consciousness. EMS notified and upon arrival the patient was found to be in distress. Pt transported to [facility]. Pt seen and evaluated in ED and found to have Encephalopathy, and Acute Hypoxemic Respiratory Failure and was unable to protect her airway. Pt intubated and placed on vent support. No further history obtainable. Patient admitted to ICU. Acute respiratory failure s/p intubated, on vent Pulm following Hepatic encephalopathy with hyperammonia Improved down to 60. Lactulose Consulted GI, following Alcoholic cirrhosis of liver Alcohol use Hypertension Monitor BP COPD Seizure disorder seizure precautions Continue Keppra and Lamictal. Hypothyroidism On Levothyroxine Bipolar disorder Dementia Full code stsatus History Interval history: Still intubated No fever Hospitalist Physical - Physical exam Narrative exam: Gen: Not in acute distress, intubated, sedated, HEENT: Normocephalic, atraumatic Neck: supple, no JVD Heart: S1 and S2 reg, no murmurs, rubs or gallop Lungs: Clear, no crackles, no wheeze Abd: soft, non tender, non distended, normal BS Ext: No edema, no clubbing, no cyanosis, Neuro: Sedated, intubated - Constitutional Vitals: Temp Pulse Resp BP Pulse Ox 98.5 F 72 13 106/67 95 11/11/18 07:56 11/11/18 04:11 11/10/18 19:58 11/11/18 04:11 11/11/18 04:11 Results - Labs CBC & Chem 7: 11/11/18 04:46 11/11/18 04:46 Labs: Laboratory Last Values WBC 12.2 K/mm3 (4.5-11.0) H 11/11/18 04:46 RBC 4.07 M/mm3 (3.65-5.03) 11/11/18 04:46 Hgb 10.5 gm/dl (10.1-14.3) 11/11/18 04:46 Hct 33.0 % (30.3-42.9) 11/11/18 04:46 MCV 81 fl (79-97) 11/11/18 04:46 MCH 26 pg (28-32) L 11/11/18 04:46 MCHC 32 % (30-34) 11/11/18 04:46 RDW 22.4 % (13.2-15.2) H 11/11/18 04:46 Plt Count 164 K/mm3 (140-440) 11/11/18 04:46 Lymph % (Auto) 3.2 % (13.4-35.0) L 11/09/18 05:41 Graham % (Auto) 6.5 % (0.0-7.3) 11/09/18 05:41 Eos % (Auto) 0.3 % (0.0-4.3) 11/09/18 05:41 Baso % (Auto) 0.6 % (0.0-1.8) 11/09/18 05:41 Lymph # 0.3 K/mm3 (1.2-5.4) L 11/09/18 05:41 Graham # 0.7 K/mm3 (0.0-0.8) 11/09/18 05:41 Eos # 0.0 K/mm3 (0.0-0.4) 11/09/18 05:41 Baso # 0.1 K/mm3 (0.0-0.1) 11/09/18 05:41 Add Manual Diff Complete 11/08/18 11:47 Total Counted 100 11/08/18 11:47 Seg Neutrophils % 89.4 % (40.0-70.0) H 11/09/18 05:41 Seg Neuts % (Manual) 65.0 % (40.0-70.0) 11/08/18 11:47 0 % 11/08/18 11:47 17.0 % (13.4-35.0) 11/08/18 11:47 Reactive Lymphs % (Man) 0 % 11/08/18 11:47 13.0 % (0.0-7.3) H 11/08/18 11:47 2.0 % (0.0-4.3) 11/08/18 11:47 3.0 % (0.0-1.8) H 11/08/18 11:47 0 % 11/08/18 11:47 0 % 11/08/18 11:47 0 % 11/08/18 11:47 0 % 11/08/18 11:47 Nucleated RBC % Not Reportable 11/08/18 11:47 Seg Neutrophils # 9.6 K/mm3 (1.8-7.7) H 11/09/18 05:41 Seg Neutrophils # Man 2.2 K/mm3 (1.8-7.7) 11/08/18 11:47 Band Neutrophils # 0.0 K/mm3 11/08/18 11:47 0.6 K/mm3 (1.2-5.4) L 11/08/18 11:47 Abs React Lymphs (Man) 0.0 K/mm3 11/08/18 11:47 0.4 K/mm3 (0.0-0.8) 11/08/18 11:47 0.1 K/mm3 (0.0-0.4) 11/08/18 11:47 0.1 K/mm3 (0.0-0.1) 11/08/18 11:47 0.0 K/mm3 11/08/18 11:47 0.0 K/mm3 11/08/18 11:47 0.0 K/mm3 11/08/18 11:47 Blast Cells # 0.0 K/mm3 11/08/18 11:47 WBC Morphology Not Reportable 11/08/18 11:47 Hypersegmented Neuts Not Reportable 11/08/18 11:47 Hyposegmented Neuts Not Reportable 11/08/18 11:47 Hypogranular Neuts Not Reportable 11/08/18 11:47 Not Reportable 11/08/18 11:47 Not Reportable 11/08/18 11:47 Not Reportable 11/08/18 11:47 Not Reportable 11/08/18 11:47 Not Reportable 11/08/18 11:47 Not Reportable 11/08/18 11:47 Consistent w auto 11/08/18 11:47 Not Reportable 11/08/18 11:47 Plt Clumps, EDTA Not Reportable 11/08/18 11:47 Not Reportable 11/08/18 11:47 Few 11/08/18 11:47 Not Reportable 11/08/18 11:47 Plt Morphology Comment Not Reportable 11/08/18 11:47 RBC Morphology Not Reportable 11/08/18 11:47 Dimorphic RBCs Not Reportable 11/08/18 11:47 Not Reportable 11/08/18 11:47 Not Reportable 11/08/18 11:47 1+ 11/08/18 11:47 Few 11/08/18 11:47 Not Reportable 11/08/18 11:47 Not Reportable 11/08/18 11:47 Not Reportable 11/08/18 11:47 Not Reportable 11/08/18 11:47 Not Reportable 11/08/18 11:47 Not Reportable 11/08/18 11:47 Rare 11/08/18 11:47 Not Reportable 11/08/18 11:47 Not Reportable 11/08/18 11:47 Not Reportable 11/08/18 11:47 Not Reportable 11/08/18 11:47 Not Reportable 11/08/18 11:47 Not Reportable 11/08/18 11:47 Not Reportable 11/08/18 11:47 Few 11/08/18 11:47 Acanthocytes (Spur) Not Reportable 11/08/18 11:47 Rouleaux Not Reportable 11/08/18 11:47 Not Reportable 11/08/18 11:47 Not Reportable 11/08/18 11:47 Not Reportable 11/08/18 11:47 Not Reportable 11/08/18 11:47 Hem Pathologist Commnt No 11/08/18 11:47 PT 18.3 Sec. (12.2-14.9) H 11/11/18 04:46 INR 1.56 (0.87-1.13) H 11/11/18 04:46 APTT 30.4 Sec. (24.2-36.6) 11/08/18 11:47 15.4 Sec. (15.1-19.6) 11/08/18 11:47 POC ABG pH 7.420 (7.35-7.45) 11/11/18 04:16 POC ABG pCO2 38.3 (35-45) 11/11/18 04:16 POC ABG pO2 58 (80-105) L 11/11/18 04:16 POC ABG HCO3 24.9 (22-26 mml/L) 11/11/18 04:16 POC ABG Total CO2 26 (23-27mmol/L) 11/11/18 04:16 POC ABG O2 Sat 90 11/11/18 04:16 POC ABG Base Excess 0 ((-2) - (+3)mmol/L) 11/11/18 04:16 45 % 11/11/18 04:16 Sodium 141 mmol/L (137-145) 11/11/18 04:46 Potassium 3.7 mmol/L (3.6-5.0) 11/11/18 04:46 Chloride 105.1 mmol/L (98-107) 11/11/18 04:46 Carbon Dioxide 25 mmol/L (22-30) 11/11/18 04:46 15 mmol/L 11/11/18 04:46 BUN 11 mg/dL (7-17) 11/11/18 04:46 0.4 mg/dL (0.7-1.2) L 11/11/18 04:46 Estimated GFR > 60 ml/min 11/11/18 04:46 28 % 11/11/18 04:46 Glucose 119 mg/dL (65-100) H 11/11/18 04:46 POC Glucose 133 (70-105) H 11/11/18 05:50 Lactic Acid 1.90 mmol/L (0.7-2.0) 11/09/18 13:15 Calcium 9.6 mg/dL (8.4-10.2) 11/11/18 04:46 Magnesium 1.80 mg/dL (1.7-2.3) 11/08/18 11:47 1.20 mg/dL (0.1-1.2) 11/11/18 04:46 AST 29 units/L (5-40) 11/11/18 04:46 ALT 17 units/L (7-56) 11/11/18 04:46 152 units/L (35-129) H 11/11/18 04:46 60.0 umol/L (25-60) 11/11/18 04:46 27 units/L (30-135) L 11/08/18 11:47 CK-MB (CK-2) < 1.0 ng/mL (0.0-4.0) 11/08/18 11:47 CK-MB (CK-2) Rel Index 3.7 (0-4) 11/08/18 11:47 < 0.010 ng/mL (0.00-0.029) 11/08/18 11:47 0.60 mg/dL (0.00-1.30) 11/09/18 05:41 6.1 g/dL (6.3-8.2) L 11/11/18 04:46 2.8 g/dL (3.9-5) L 11/11/18 04:46 0.8 % 11/11/18 04:46 TSH 2.370 mlU/mL (0.270-4.200) 11/08/18 11:47 Free T4 0.92 ng/dL (0.76-1.46) 11/08/18 11:47 Jihan (Yellow) 11/08/18 12:00 Cloudy (Clear) 11/08/18 12:00 8.0 (5.0-7.0) H 11/08/18 12:00 Ur Specific [place] 1.017 (1.003-1.030) 11/08/18 12:00 <15 mg/dl mg/dL (Negative) 11/08/18 12:00 Neg mg/dL (Negative) 11/08/18 12:00 Neg mg/dL (Negative) 11/08/18 12:00 Neg (Negative) 11/08/18 12:00 Neg (Negative) 11/08/18 12:00 Neg (Negative) 11/08/18 12:00 < 2.0 mg/dL (<2.0) 11/08/18 12:00 Ur Leukocyte Esterase Neg (Negative) 11/08/18 12:00 4.0 /HPF (0.0-6.0) 11/08/18 12:00 2.0 /HPF (0.0-6.0) 11/08/18 12:00 U Epithel Cells (Auto) 1.0 /HPF (0-13.0) 11/08/18 12:00 3+ /HPF (Negative) 11/08/18 12:00 Few /HPF 11/08/18 12:00 Plasma/Serum Alcohol < 0.01 % (0-0.07) 11/08/18 11:47 Active Medications - Current Medications Current Medications: Generic Name Dose Route Start Last Admin Trade Name Freq PRN Reason Stop Dose Admin Albuterol 2.5 mg 11/08/18 13:32 Proventil IH Q3HRT PRN Shortness Of Breath Albuterol/Ipratropium 1 ampul 11/10/18 08:00 11/10/18 19:37 Duoneb *Not For Prn Use* IH 1 ampul TIDRT HUONG Administration Lipase/Protease/Amylase 1 each 11/08/18 15:[address] 10,500 Unit FEEDTUBE PRN PRN For Clogged Feeding Tube Famotidine 20 mg 11/09/18 12:00 11/10/18 09:56 Pepcid PO 20 mg QDAY HUONG Administration Fentanyl 50 mcg 11/08/18 13:51 Sublimaze IV Q10MIN PRN ANALGESIA Fluticasone Propionate 50 mcg 11/09/18 10:00 11/10/18 09:54 Flonase NS 50 mcg QDAY HUONG Administration Folic Acid 1 mg 11/09/18 10:00 11/10/18 09:56 Folvite PO 1 mg QDAY HUONG Administration Hydrophilic Ointment 1 applic 11/08/18 11:37 Vaseline Lip Therapy TP Q2HR PRN Dry Lips Fentanyl Citrate 2,000 mcg in 100 mls @ 3.275 mls/hr 11/08/18 14:00 11/10/18 19:16 Fentanyl Drip Premix IV 0 mcg/kg/hr TITR HUONG 0 mls/hr Titration Protocol 1 MCG/KG/HR Propofol 1,000 mg in 100 mls @ 1.965 mls/hr 11/08/18 15:00 11/10/18 19:33 Diprivan 10 Mg/Ml IV 0 mcg/kg/min TITR HUONG 0 mls/hr Titration Protocol 5 MCG/KG/MIN Ceftriaxone Sodium 1 gm in 50 mls @ 100 mls/hr 11/10/18 14:00 11/10/18 14:45 Rocephin/Ns 1 Gm/50 Ml IV 100 mls/hr Q24HR HUONG Administration Protocol Vancomycin HCl 1 gm in 250 mls @ 166.667 mls/hr 11/11/18 04:00 11/11/18 05:00 Vancomycin/Ns 1 Gm/250 Ml IV 166.667 mls/hr Q12H HUONG Administration Lactulose 30 gm 11/08/18 20:00 11/10/18 21:21 Cephulac PO 30 gm TID HUONG Administration Lamotrigine 25 mg 11/08/18 22:00 11/10/18 21:22 Lamictal PO 25 mg BID HUONG Administration Levetiracetam 1,500 mg 11/08/18 22:00 11/10/18 21:20 Keppra PO 1,500 mg BID HUONG Administration Levothyroxine Sodium 75 mcg 11/09/18 06:00 11/11/18 06:37 Synthroid PO 75 mcg DAILY@0600 HUONG Administration Lorazepam 2 mg 11/08/18 14:18 Ativan IV Q1HR PRN CIWA-Ar 8-15 Multi-Ingred Cream/Lotion/Oil/Oint 1 applic 11/08/18 11:37 Artificial Tears Ophth Oint OU Q4HR PRN Dry Eye(s) Multivitamins 1 each 11/09/18 10:00 11/10/18 09:56 Theragran Tab PO 1 each DAILY HUONG Administration Propranolol HCl 40 mg 11/09/18 10:00 11/10/18 09:54 Inderal PO 40 mg QDAY HUONG Administration Rifaximin 550 mg 11/08/18 22:00 11/10/18 21:21 Xifaxan PO 550 mg BID HUONG Administration Simple Syrup 15 ml 11/08/18 15:47 Simple Syrup FEEDTUBE PRN PRN Hypoglycemia Simple Syrup 30 ml 11/08/18 15:47 Simple Syrup FEEDTUBE PRN PRN Hypoglycemia Sodium Bicarbonate 325 mg 11/08/18 15:47 Sodium Bicarbonate FEEDTUBE PRN PRN For Clogged Feeding Tube Sodium Chloride 5 ml 11/08/18 11:37 Nacl 0.9% 500 Ml IV DIRECT PRN [employer]ERIAL [employer]OD [employer] BEVERAGE Sodium Chloride 10 ml 11/08/18 22:00 11/10/18 21:22 Sodium Chloride Flush Syringe 10 Ml IV 10 ml BID HUONG Administration Sodium Chloride 10 ml 11/08/18 13:32 Sodium Chloride Flush Syringe 10 Ml IV PRN PRN LINE FLUSH Spironolactone 100 mg 11/09/18 10:00 11/10/18 09:56 Aldactone PO 100 mg QDAY HUONG Administration Thiamine HCl 100 mg 11/09/18 10:00 11/10/18 09:56 Vitamin B-1 PO 100 mg QDAY HUONG Administration Nutrition/Malnutrition Assess - Dietary Evaluation Nutrition/Malnutrition Findings: Nutrition Notes Start: 11/08/18 15:38 Freq: Status: Active Protocol: Document 11/10/18 17:20 RM (Rec: 11/10/18 17:24 RM [email or web address]) Nutrition Notes Initial or Follow up Reassessment Current Diagnosis COPD,Hypertension Other Pertinent Diagnosis Hx CVA,GERD, Dementia, ESLD Current Diet Vital 1.2 at 55 ml/hr Labs/Tests Reviewed Pertinent Medications Reviewed Height 5 ft 8 in Weight 65.499 kg [place] Body Weight (kg) 63.63 BMI 21.9 Subjective/Other Information No formula hanging and pump off at time of visit. Per nurse TF was stopped for ultrasound. Stated that pt was tolerating TF at 45 ml/hr prior to ultrasound and that she intends to resume TF. Burn Absent Trauma Absent #1 Nutrition Diagnosis Inadequate oral intake Diagnosis Progress(for reassessment Continues documentation) Is patient on ventilator? Yes Is Patient Ambulatory and/or Out of Bed No REE-([facility]-confined to bed) 7197.264 Calculation Used for Recommendations [facility] Additional Notes Protein Needs: 79-131g (1.2-2g /kg) Fluid Needs: 1 ml/kcal Nutrition Intervention Nutrition Support: Vital 1.2 at 55 ml/hr. Water flush of 100 mls q 4 hrs . Kcal 1,584 Protein (gm) 99 Fluid (mL) 1,071 Goal #1 TF tolerance Goal #2 Meet at least 80% of calorie and protein needs via TF Anticipated Discharge Needs: Unable to determine at this time Follow-Up By: 11/12/18 Additional Comments Follow for TF at [facility]
--- NOTE | 2018-11-11 08:05 | Progress Note ---
Assessment and Plan Acute hypoxemic respiratory failure, on mechanical ventilatory support. Decompensated liver cirrhosis. Hepatic encephalopathy. Hyperammonemia. Coagulopathy as a result of the liver cirrhosis. History of alcohol abuse and dependence. Hypothyroidism. History of chronic obstructive lung disease. Coronary artery disease. Seizure disorder. Leukopenia. Hyperbilirubinemia. Hypoalbuminemia. - continue lactulose for hyperammonemia - continue bronchodilators (duonebs) with pulmonary hygiene per RT - continue lung protective strategies -CXR and ABG in am - VAP bundle addressed - continue supplemental oxygen to keep O2 sats 88-90% - continue accuchecks with glycemic control per SSI for target blood glucose 140 - 180mg/dL - Agitation management - Titrate sedation to RASS 0 to -1 - Prevention of delirium, maintenance of sleep-wake cycle - Antibitoics per ID, VRE in urine - continue AED's (keppra) for seizure disorder - watch for DT's - continue thiamine and folate supplementation - enteral nutrition as tolerated - continue mobility protocols for pressure ulcer prophylaxis - GI prophylaxis is with Pepcid - VTE and Stress ulcer prophylaxis SBT today, if weaning parameters are acceptable plan to liberate from MVS. May require NIPPV support in the short term CONDITION: CRITICAL PROGNOSIS: GUARDED CODE STATUS: FULL CODE The high probability of a clinically significant, sudden or life-threatening deterioration of the [respiratory, G.I. & neurologic] system(s) required my full and direct attention, intervention and personal management. The aggregate critical care time was [35] minutes without overlap. Time includes spent on; [x] Data Review and interpretation [x] Patient assessment and monitoring of vital signs [x] Documentation [x] Medication orders and management Subjective Date of service: 11/11/18 Principal diagnosis: Hepatic encephalopathy Interval history: Patient is seen today for: Acute hypoxemic respiratory failure on MVS; Decompensated liver cirrhosis; Hepatic encephalopathy; Hyperammonemia; Coagulopathy; History of alcohol abuse and dependence; Hypothyroidism; COPD; CA D; Seizure disorder. Seen and examined at bedside; 24hour events reviewed; nursing and respiratory care staff consulted; no adverse overnight events reported to me; remains on MVS, resting peacefully in bed; no fevers overnight, no vomiting. Vitals, labs, medications, chart, imaging reviewed. More awake and alert, obeys one step commands Contact isolation for VRE in urine Objective Vital Signs - 12hr 11/10/18 11/11/18 11/11/18 23:20 00:00 04:00 Temperature 97.9 F 97.8 F Pulse Rate 68 Blood Pressure 115/55 O2 Sat by Pulse 97 Oximetry 11/11/18 11/11/18 04:11 07:56 Temperature 98.5 F Pulse Rate 72 Blood Pressure 106/67 O2 Sat by Pulse 95 Oximetry Constitutional: no acute distress, other (elderly and chronically ill looking CF, normocephalic with mildly increase resp effort on MVS) Eyes: non-icteric ENT: oropharynx moist, other (ETT 23 cm NÉSTOR) Neck: supple, no lymphadenopathy, no JVD, other (no thyromegaly) Effort: normal Ascultation: Bilateral: rhonchi Percussion: Bilateral: not dull Cardiovascular: regular rate and rhythm Gastrointestinal: normoactive bowel sounds, soft, non-tender, non-distended Integumentary: rash, other (spider naevi) Extremities: no cyanosis, no edema, pulses normal, no ischemia or petechiae Neurologic: non-focal exam (grossly), pupils equal and round, motor strength normal and, other (obeys one step commands) Psychiatric: mood appropriate, affect normal CBC and BMP: 11/16/18 04:59 11/19/18 04:36 ABG, PT/INR, D-dimer: ABG POC ABG pH 7.420 (7.35-7.45) 11/11/18 04:16 POC ABG pCO2 38.3 (35-45) 11/11/18 04:16 POC ABG pO2 58 (80-105) L 11/11/18 04:16 POC ABG HCO3 24.9 (22-26 mml/L) 11/11/18 04:16 POC ABG Total CO2 26 (23-27mmol/L) 11/11/18 04:16 POC ABG O2 Sat 90 11/11/18 04:16 PT/INR, D-dimer PT 18.3 Sec. (12.2-14.9) H 11/11/18 04:46 INR 1.56 (0.87-1.13) H 11/11/18 04:46 Abnormal lab findings: Abnormal Labs 11/08/18 11/08/18 11/08/18 11:47 11:47 11:47 WBC 3.4 L MCH 26 L RDW 21.6 H Lymph % (Auto) Lymph # Seg Neutrophils % Monocytes % (Manual) 13.0 H Basophils % (Manual) 3.0 H Seg Neutrophils # Lymphocytes # (Manual) 0.6 L PT 17.3 H INR 1.45 H POC ABG pH POC ABG pCO2 POC ABG pO2 BUN Creatinine 0.6 L Glucose 130 H POC Glucose Total Bilirubin 1.50 H Alkaline Phosphatase 140 H Ammonia Total Creatine Kinase 27 L Total Protein 6.0 L Albumin 3.0 L Urine pH 11/08/18 11/08/18 11/08/18 11:47 12:00 14:01 WBC MCH RDW Lymph % (Auto) Lymph # Seg Neutrophils % Monocytes % (Manual) Basophils % (Manual) Seg Neutrophils # Lymphocytes # (Manual) PT INR POC ABG pH 7.452 H POC ABG pCO2 32.8 L POC ABG pO2 127 H BUN Creatinine Glucose POC Glucose Total Bilirubin Alkaline Phosphatase Ammonia 123.0 H Total Creatine Kinase Total Protein Albumin Urine pH 8.0 H 11/08/18 11/08/18 11/09/18 14:34 15:13 04:31 WBC MCH RDW Lymph % (Auto) Lymph # Seg Neutrophils % Monocytes % (Manual) Basophils % (Manual) Seg Neutrophils # Lymphocytes # (Manual) PT INR POC ABG pH 7.468 H POC ABG pCO2 POC ABG pO2 76 L 73 L BUN Creatinine Glucose POC Glucose 112 H Total Bilirubin Alkaline Phosphatase Ammonia Total Creatine Kinase Total Protein Albumin Urine pH 11/09/18 11/09/18 11/09/18 05:41 05:41 05:41 WBC MCH 26 L RDW 21.5 H Lymph % (Auto) 3.2 L Lymph # 0.3 L Seg Neutrophils % 89.4 H Monocytes % (Manual) Basophils % (Manual) Seg Neutrophils # 9.6 H Lymphocytes # (Manual) PT INR POC ABG pH POC ABG pCO2 POC ABG pO2 BUN 6 L Creatinine 0.4 L Glucose POC Glucose Total Bilirubin 1.80 H Alkaline Phosphatase 153 H Ammonia 75.0 H Total Creatine Kinase Total Protein Albumin 3.2 L Urine pH 11/09/18 11/10/18 11/10/18 11:44 00:11 04:14 WBC MCH RDW Lymph % (Auto) Lymph # Seg Neutrophils % Monocytes % (Manual) Basophils % (Manual) Seg Neutrophils # Lymphocytes # (Manual) PT INR POC ABG pH POC ABG pCO2 POC ABG pO2 74 L BUN Creatinine Glucose POC Glucose 114 H 134 H Total Bilirubin Alkaline Phosphatase Ammonia Total Creatine Kinase Total Protein Albumin Urine pH 11/10/18 11/10/18 11/10/18 08:19 08:19 08:19 WBC 14.8 H MCH 26 L RDW 21.9 H Lymph % (Auto) Lymph # Seg Neutrophils % Monocytes % (Manual) Basophils % (Manual) Seg Neutrophils # Lymphocytes # (Manual) PT INR POC ABG pH POC ABG pCO2 POC ABG pO2 BUN Creatinine 0.5 L Glucose 117 H POC Glucose Total Bilirubin 1.30 H Alkaline Phosphatase 155 H Ammonia 62.0 H Total Creatine Kinase Total Protein 6.0 L Albumin 2.8 L Urine pH 11/11/18 11/11/18 11/11/18 00:02 04:16 04:46 WBC 12.2 H MCH 26 L RDW 22.4 H Lymph % (Auto) Lymph # Seg Neutrophils % Monocytes % (Manual) Basophils % (Manual) Seg Neutrophils # Lymphocytes # (Manual) PT INR POC ABG pH POC ABG pCO2 POC ABG pO2 58 L BUN Creatinine Glucose POC Glucose 112 H Total Bilirubin Alkaline Phosphatase Ammonia Total Creatine Kinase Total Protein Albumin Urine pH 11/11/18 11/11/18 11/11/18 04:46 04:46 05:50 WBC MCH RDW Lymph % (Auto) Lymph # Seg Neutrophils % Monocytes % (Manual) Basophils % (Manual) Seg Neutrophils # Lymphocytes # (Manual) PT 18.3 H INR 1.56 H POC ABG pH POC ABG pCO2 POC ABG pO2 BUN Creatinine 0.4 L Glucose 119 H POC Glucose 133 H Total Bilirubin Alkaline Phosphatase 152 H Ammonia Total Creatine Kinase Total Protein 6.1 L Albumin 2.8 L Urine pH Chest x-ray: image reviewed Allied health notes reviewed: RT (SBT today, get weaning parameters, if acceptable will liberate from MVS)
[2018-11-11] MEDS: DUONEB *Not for PRN Use IH SCH ×3 (08:19→21:16)
[2018-11-11] MEDS: CEPHULAC PO SCH ×3 (09:30→20:12)
[2018-11-11] MEDS: ROCEPHIN/NS 1 GM/50 ML 1 GM/50 ML BAG IV SCH (09:36)
[2018-11-11] MEDS: PEPCID PO SCH (09:38)
[2018-11-11] MEDS: THERAGRAN Tab PO SCH (09:38)
[2018-11-11] MEDS: LaMICtal PO SCH ×2 (09:38→21:29)
[2018-11-11] MEDS: VITAMIN B-1 PO SCH (09:38)
[2018-11-11] MEDS: ALDACTONE PO SCH (09:40)
[2018-11-11] MEDS: KEPPRA PO SCH ×2 (09:40→21:29)
[2018-11-11] MEDS: INDERAL PO SCH (09:42)
[2018-11-11] MEDS: FLONASE NS SCH (09:43)
[2018-11-11] MEDS: FOLVITE PO SCH (09:45)
[2018-11-11] MEDS: XIFAXAN PO SCH ×2 (09:45→21:29)
[2018-11-11] MEDS: SODIUM CHLORIDE FLUSH SYRINGE 10 ML IV SCH ×2 (10:05→21:29)
--- NOTE | 2018-11-11 11:05 | Progress Note ---
Assessment and Plan Cultures: 11/08/2018 blood cultures: no growth 11/08/2018 urine culture: 10K-100K Enterococcus species - VRE 11/08/2018 tracheal aspirate: Usual respiratory faustina with moderate growth of MRSA A/P: 62-year-old senior care resident with end-stage liver disease attributed to alcoholic cirrhosis, esophageal varices, hypertension, COPD, dementia, seizure disorder, history of CVA was brought to the emergency room on 11/08/2018 with altered mental status. 1) Leucocytosis: etiology unclear. UA not consistent with UTI. CXR doesn't show a pneumonia, except a 3 cm retrocardiac opacity, that was noted on CTA chest from 09/2018 that showed " Prominent soft tissue density lesion near the left infrahilar region from the GE junction to the left pulmonary vein may represent varices with collateralized return. " No clinical concern for SBP. She does have elevated LFTs and alk phos higher than prior, will get RUQ US. 2) Enterococcus VRE in urine culture: no pyuria. Unlikely UTI. colonization, no treatment indicated. 3) MRSA in tracheal aspirate: no pneumonia on CXR. Likely colonization. On abx trial as of now. 4) ESLD: GI following. On lactulose, rifaximin. RUQ US showed cirrhotic liver. 5) Acute encephalopathy: improving. Recs: - continue IV Ceftriaxone and IV Vancomycin with PK consult (Day 2). Tentatively plan to d/c abx tomorrow - follow up WBC and fever curve - contact isolation for VRE and MRSA Akshat Powell MD, FACP [facility] ([facility] C: [phone] O: [phone] F: [phone] Subjective Date of service: 11/11/18 Principal diagnosis: Hepatic encephalopathy Interval history: No fever. Still on vent. Opens eyes, follows basic commands. Hemodynamics stable. Objective - Exam Narrative Exam: Physical Exam: Constitutional: awake, opens eyes, follows commands, intubated Head, Ears, Nose: Normocephalic, atraumatic. External ears, nose normal Eyes: Conjunctivae/corneas clear. No icterus. No ptosis. Neck: Supple, no meningeal signs Oral: intubated Cardiovascular: S1, S2 normal. Respiratory: Good air entry, clear to auscultation bilaterally GI: Soft, non-tender; bowel sounds normal. No peritoneal signs Musculoskeletal: No pedal edema, no cyanosis. Skin: No rash or abscess Hem/Lymphatic: No palpable cervical or supraclavicular nodes. No lymphangitis Psych: no agitation Neurological: awake, opens eyes, follows commands, intubated, on vent - Constitutional Vitals: Vital Signs Temp Pulse Resp BP Pulse Ox 98.5 F 70 18 113/49 100 11/11/18 07:56 11/11/18 09:42 11/11/18 09:17 11/11/18 09:42 11/11/18 08:13 Temperature -Last 24 Hours Temperature 98.5 F Temperature 97.8 F Temperature 97.9 F Temperature 97.4 F Temperature 98.9 F - Labs CBC & Chem 7: 11/11/18 04:46 11/11/18 04:46 Labs: Abnormal lab results 11/11/18 11/11/18 11/11/18 Range/Units 00:02 04:16 04:46 WBC 12.2 H (4.5-11.0) K/mm3 MCH 26 L (28-32) pg RDW 22.4 H (13.2-15.2) % PT (12.2-14.9) Sec. INR (0.87-1.13) POC ABG pO2 58 L (80-105) Creatinine (0.7-1.2) mg/dL Glucose (65-100) mg/dL POC Glucose 112 H (70-105) Alkaline Phosphatase (35-129) units/L Total Protein (6.3-8.2) g/dL Albumin (3.9-5) g/dL 11/11/18 11/11/18 11/11/18 Range/Units 04:46 04:46 05:50 WBC (4.5-11.0) K/mm3 MCH (28-32) pg RDW (13.2-15.2) % PT 18.3 H (12.2-14.9) Sec. INR 1.56 H (0.87-1.13) POC ABG pO2 (80-105) Creatinine 0.4 L (0.7-1.2) mg/dL Glucose 119 H (65-100) mg/dL POC Glucose 133 H (70-105) Alkaline Phosphatase 152 H (35-129) units/L Total Protein 6.1 L (6.3-8.2) g/dL Albumin 2.8 L (3.9-5) g/dL - Imaging and cardiology Chest x-ray: report reviewed, image reviewed (no interval change.)
[2018-11-11] MEDS ORDERED: ZOFRAN IV PRN (13:20)
--- NOTE | 2018-11-11 17:56 | Progress Note ---
Assessment and Plan 1. MS changes - improved. Likely hepatic encephalopathy. Reason for decompensation unclear, though need to consider infectious process. WBC improving. Pt apparently has underlying mild dementia as well. - continue meds and monitor. 2. Cirrhosis - due to EtOH in past. Stable. Subjective Date of service: 11/11/18 Principal diagnosis: Hepatic encephalopathy Interval history: Pt extubated today. Follows commands. Denies abd pain or discomfort. Not talking at present. Objective - Constitutional Vitals: Vital Signs - 12hr 11/11/18 11/11/18 11/11/18 06:00 06:10 06:20 Temperature Pulse Rate 75 73 72 Pulse Rate [ Anterior Bilateral Throughout] Respiratory 19 22 16 Rate Respiratory Rate [Anterior Bilateral Throughout] Blood Pressure 118/56 118/56 118/56 O2 Sat by Pulse 89 90 94 Oximetry 11/11/18 11/11/18 11/11/18 06:30 06:40 06:50 Temperature Pulse Rate 72 69 77 Pulse Rate [ Anterior Bilateral Throughout] Respiratory 18 16 17 Rate Respiratory Rate [Anterior Bilateral Throughout] Blood Pressure 122/52 122/52 122/52 O2 Sat by Pulse 93 94 90 Oximetry 11/11/18 11/11/18 11/11/18 07:00 07:10 07:20 Temperature Pulse Rate 75 72 71 Pulse Rate [ Anterior Bilateral Throughout] Respiratory 19 17 15 Rate Respiratory Rate [Anterior Bilateral Throughout] Blood Pressure 118/54 118/54 118/54 O2 Sat by Pulse 92 94 96 Oximetry 11/11/18 11/11/18 11/11/18 07:30 07:40 07:50 Temperature Pulse Rate 67 65 71 Pulse Rate [ Anterior Bilateral Throughout] Respiratory 17 17 16 Rate Respiratory Rate [Anterior Bilateral Throughout] Blood Pressure 96/40 96/40 96/40 O2 Sat by Pulse 92 93 92 Oximetry 11/11/18 11/11/18 11/11/18 07:56 08:00 08:10 Temperature 98.5 F Pulse Rate 69 70 Pulse Rate [ Anterior Bilateral Throughout] Respiratory 16 18 Rate Respiratory Rate [Anterior Bilateral Throughout] Blood Pressure 106/46 106/46 O2 Sat by Pulse 95 94 Oximetry 11/11/18 11/11/18 11/11/18 08:13 08:20 08:30 Temperature Pulse Rate 64 68 70 Pulse Rate [ 68 Anterior Bilateral Throughout] Respiratory 13 13 16 Rate Respiratory 13 Rate [Anterior Bilateral Throughout] Blood Pressure 106/46 106/46 104/45 O2 Sat by Pulse 100 96 94 Oximetry 11/11/18 11/11/18 11/11/18 08:40 08:50 09:00 Temperature Pulse Rate 71 68 69 Pulse Rate [ Anterior Bilateral Throughout] Respiratory 18 16 13 Rate Respiratory Rate [Anterior Bilateral Throughout] Blood Pressure 104/45 104/45 113/56 O2 Sat by Pulse 93 96 96 Oximetry 11/11/18 11/11/18 11/11/18 09:10 09:17 09:20 Temperature Pulse Rate 68 73 Pulse Rate [ 70 Anterior Bilateral Throughout] Respiratory 17 11 L Rate Respiratory 18 Rate [Anterior Bilateral Throughout] Blood Pressure 113/56 113/56 O2 Sat by Pulse 94 89 Oximetry 11/11/18 11/11/18 11/11/18 09:30 09:40 09:42 Temperature Pulse Rate 74 70 70 Pulse Rate [ Anterior Bilateral Throughout] Respiratory 13 18 Rate Respiratory Rate [Anterior Bilateral Throughout] Blood Pressure 113/49 113/49 113/49 O2 Sat by Pulse 89 97 Oximetry 11/11/18 11/11/18 11/11/18 09:50 10:00 10:10 Temperature Pulse Rate 71 71 72 Pulse Rate [ Anterior Bilateral Throughout] Respiratory 15 17 18 Rate Respiratory Rate [Anterior Bilateral Throughout] Blood Pressure 113/49 122/59 122/59 O2 Sat by Pulse 94 90 91 Oximetry 11/11/18 11/11/18 11/11/18 10:20 10:30 10:40 Temperature Pulse Rate 70 71 71 Pulse Rate [ Anterior Bilateral Throughout] Respiratory 16 19 22 Rate Respiratory Rate [Anterior Bilateral Throughout] Blood Pressure 122/59 112/63 112/63 O2 Sat by Pulse 95 91 92 Oximetry 11/11/18 11/11/18 11/11/18 10:50 11:00 11:10 Temperature Pulse Rate 70 69 68 Pulse Rate [ Anterior Bilateral Throughout] Respiratory 11 L 12 12 Rate Respiratory Rate [Anterior Bilateral Throughout] Blood Pressure 112/63 117/56 117/56 O2 Sat by Pulse 91 96 96 Oximetry 11/11/18 11/11/18 11/11/18 11:20 11:30 11:40 Temperature Pulse Rate 67 69 74 Pulse Rate [ Anterior Bilateral Throughout] Respiratory 14 14 19 Rate Respiratory Rate [Anterior Bilateral Throughout] Blood Pressure 117/56 115/53 115/53 O2 Sat by Pulse 96 97 91 Oximetry 11/11/18 11/11/18 11/11/18 11:50 12:00 12:10 Temperature 98.0 F Pulse Rate 67 69 72 Pulse Rate [ Anterior Bilateral Throughout] Respiratory 14 20 19 Rate Respiratory Rate [Anterior Bilateral Throughout] Blood Pressure 115/53 117/56 105/64 O2 Sat by Pulse 97 96 90 Oximetry 11/11/18 11/11/18 11/11/18 12:20 12:30 12:40 Temperature Pulse Rate 67 68 73 Pulse Rate [ Anterior Bilateral Throughout] Respiratory 17 16 16 Rate Respiratory Rate [Anterior Bilateral Throughout] Blood Pressure 105/64 121/64 121/64 O2 Sat by Pulse 97 92 81 L Oximetry 11/11/18 11/11/18 11/11/18 12:50 13:00 13:08 Temperature Pulse Rate 73 76 77 Pulse Rate [ Anterior Bilateral Throughout] Respiratory 19 15 20 Rate Respiratory Rate [Anterior Bilateral Throughout] Blood Pressure 121/64 114/54 114/54 O2 Sat by Pulse 88 83 L 91 Oximetry 11/11/18 11/11/18 11/11/18 13:10 13:16 13:20 Temperature Pulse Rate 78 77 Pulse Rate [ 78 Anterior Bilateral Throughout] Respiratory 20 18 Rate Respiratory 20 Rate [Anterior Bilateral Throughout] Blood Pressure 114/54 114/54 O2 Sat by Pulse 95 93 Oximetry 11/11/18 11/11/18 11/11/18 13:30 13:40 13:42 Temperature Pulse Rate 78 76 Pulse Rate [ 75 Anterior Bilateral Throughout] Respiratory 16 11 L Rate Respiratory 20 Rate [Anterior Bilateral Throughout] Blood Pressure 123/54 123/54 O2 Sat by Pulse 91 93 Oximetry 11/11/18 11/11/18 11/11/18 13:50 14:00 14:10 Temperature Pulse Rate 76 78 76 Pulse Rate [ Anterior Bilateral Throughout] Respiratory 15 11 L 19 Rate Respiratory Rate [Anterior Bilateral Throughout] Blood Pressure 123/54 114/54 119/60 O2 Sat by Pulse 91 92 94 Oximetry 11/11/18 11/11/18 11/11/18 14:20 14:30 14:40 Temperature Pulse Rate 75 76 76 Pulse Rate [ Anterior Bilateral Throughout] Respiratory 19 15 21 Rate Respiratory Rate [Anterior Bilateral Throughout] Blood Pressure 119/60 75/43 75/43 O2 Sat by Pulse 93 92 92 Oximetry 11/11/18 11/11/18 11/11/18 14:50 15:00 15:10 Temperature Pulse Rate 76 77 76 Pulse Rate [ Anterior Bilateral Throughout] Respiratory 14 17 21 Rate Respiratory Rate [Anterior Bilateral Throughout] Blood Pressure 119/61 119/61 105/52 O2 Sat by Pulse 94 94 96 Oximetry 11/11/18 11/11/18 11/11/18 15:20 15:30 15:40 Temperature Pulse Rate 78 79 Pulse Rate [ Anterior Bilateral Throughout] Respiratory 24 14 Rate Respiratory Rate [Anterior Bilateral Throughout] Blood Pressure 105/52 119/61 119/61 O2 Sat by Pulse 94 92 95 Oximetry 11/11/18 11/11/18 11/11/18 15:50 16:00 16:10 Temperature 98.0 F Pulse Rate 78 Pulse Rate [ Anterior Bilateral Throughout] Respiratory 19 Rate Respiratory Rate [Anterior Bilateral Throughout] Blood Pressure 119/61 118/52 105/52 O2 Sat by Pulse 94 94 94 Oximetry 11/11/18 11/11/18 11/11/18 16:20 16:30 16:40 Temperature Pulse Rate Pulse Rate [ Anterior Bilateral Throughout] Respiratory Rate Respiratory Rate [Anterior Bilateral Throughout] Blood Pressure 105/52 105/52 105/52 O2 Sat by Pulse 94 94 95 Oximetry 11/11/18 11/11/18 11/11/18 16:42 16:50 17:00 Temperature Pulse Rate 80 Pulse Rate [ Anterior Bilateral Throughout] Respiratory 21 Rate Respiratory Rate [Anterior Bilateral Throughout] Blood Pressure 105/52 109/45 O2 Sat by Pulse 95 94 93 Oximetry General appearance: Present: no acute distress - EENT Eyes: PERRL, EOM intact ENT: hearing intact - Respiratory Respiratory effort: normal - Gastrointestinal General gastrointestinal: Present: soft, non-tender - Labs CBC & Chem 7: 11/11/18 04:46 11/11/18 04:46 Labs: Abnormal lab results 11/11/18 11/11/18 11/11/18 Range/Units 00:02 04:16 04:46 WBC 12.2 H (4.5-11.0) K/mm3 MCH 26 L (28-32) pg RDW 22.4 H (13.2-15.2) % PT (12.2-14.9) Sec. INR (0.87-1.13) POC ABG pCO2 (35-45) POC ABG pO2 58 L (80-105) Creatinine (0.7-1.2) mg/dL Glucose (65-100) mg/dL POC Glucose 112 H (70-105) Alkaline Phosphatase (35-129) units/L Total Protein (6.3-8.2) g/dL Albumin (3.9-5) g/dL 11/11/18 11/11/18 11/11/18 Range/Units 04:46 04:46 05:50 WBC (4.5-11.0) K/mm3 MCH (28-32) pg RDW (13.2-15.2) % PT 18.3 H (12.2-14.9) Sec. INR 1.56 H (0.87-1.13) POC ABG pCO2 (35-45) POC ABG pO2 (80-105) Creatinine 0.4 L (0.7-1.2) mg/dL Glucose 119 H (65-100) mg/dL POC Glucose 133 H (70-105) Alkaline Phosphatase 152 H (35-129) units/L Total Protein 6.1 L (6.3-8.2) g/dL Albumin 2.8 L (3.9-5) g/dL 11/11/18 11/11/18 Range/Units 11:38 12:23 WBC (4.5-11.0) K/mm3 MCH (28-32) pg RDW (13.2-15.2) % PT (12.2-14.9) Sec. INR (0.87-1.13) POC ABG pCO2 34.7 L (35-45) POC ABG pO2 57 L (80-105) Creatinine (0.7-1.2) mg/dL Glucose (65-100) mg/dL POC Glucose 123 H (70-105) Alkaline Phosphatase (35-129) units/L Total Protein (6.3-8.2) g/dL Albumin (3.9-5) g/dL Medications & Allergies - Medications Allergies/Adverse Reactions: Allergies No Known Allergies Allergy (Verified 09/20/18 17:09) Home Medications: Home Medications Medication Instructions Recorded Confirmed Last Taken Type Folic Acid [Folvite] 1 mg PO QDAY 11/02/13 11/08/18 06/22/17 History Multivitamin [Multi-Vitamin Daily] 1 each PO DAILY 11/02/13 11/08/18 06/22/17 H istory Aspirin [Aspirin BABY CHEW TAB] 1 tab PO DAILY 05/10/14 11/08/18 06/22/17 History Plavix 75 mg PO DAILY #30 08/16/17 11/08/18 Unknown Rx Thiamine [Vitamin B-1] 100 mg PO QDAY #30 tablet 08/16/17 11/08/18 Unknown Rx lamoTRIgine [LaMICtal] 25 mg PO BID #50 tablet 08/16/17 11/08/18 Unknown Rx Rifaximin [Xifaxan] 550 mg PO BID #60 tablet 07/30/18 11/08/18 Unknown Rx ALBUTEROL NEB's [Proventil 0.083% 2.5 mg IH Q6HRT PRN #90 nebu 08/04/18 11/08/18 Unknown Rx NEBS] Ipratropium/Albuterol Sulfate 1 ampul IH TIDRT #90 ampul.neb 08/04/18 11/08/18 Unknown Rx [DUONEB *Not for PRN Use*] Fluticasone [Flonase] 1 spray NS QDAY 09/22/18 11/08/18 Unknown History Propranolol [Inderal] 40 mg PO QDAY 09/22/18 11/08/18 Unknown History Lactulose [Cephulac] 30 gm PO TID oral.liqd 10/05/18 11/08/18 Unknown Rx Levothyroxine [Synthroid] 75 mcg PO DAILY@0600 tablet 10/05/18 11/08/18 Unknown Rx levETIRAcetam [Keppra] 1,500 mg PO BID oral.liqd 10/05/18 11/08/18 Unknown Rx Famotidine [Pepcid] 40 mg PO QHS 11/08/18 11/08/18 Unknown History Spironolactone [Aldactone] 100 mg PO QDAY 11/08/18 11/08/18 Unknown History Active Medications: Generic Name Dose Route Start Last Admin Trade Name Freq PRN Reason Stop Dose Admin Albuterol 2.5 mg 11/08/18 13:32 Proventil IH Q3HRT PRN Shortness Of Breath Albuterol/Ipratropium 1 ampul 11/10/18 08:00 11/11/18 13:15 Duoneb *Not For Prn Use* IH 1 ampul TIDRT HUONG Administration Lipase/Protease/Amylase 1 each 11/08/18 15:47 Pancreaze 10,500 Unit FEEDTUBE PRN PRN For Clogged Feeding Tube Famotidine 20 mg 11/09/18 12:00 11/11/18 09:38 Pepcid PO 20 mg QDAY HUONG Administration Fentanyl 50 mcg 11/08/18 13:51 Sublimaze IV Q10MIN PRN ANALGESIA Fluticasone Propionate 50 mcg 11/09/18 10:00 11/11/18 09:43 Flonase NS 50 mcg QDAY HUONG Administration Folic Acid 1 mg 11/09/18 10:00 11/11/18 09:45 Folvite PO 1 mg QDAY HUONG Administration Hydrophilic Ointment 1 applic 11/08/18 11:37 Vaseline Lip Therapy TP Q2HR PRN Dry Lips Fentanyl Citrate 2,000 mcg in 100 mls @ 3.275 mls/hr 11/08/18 14:00 11/10/18 19:16 Fentanyl Drip Premix IV 0 mcg/kg/hr TITR HUONG 0 mls/hr Titration Protocol 1 MCG/KG/HR Propofol 1,000 mg in 100 mls @ 1.965 mls/hr 11/08/18 15:00 11/10/18 19:33 Diprivan 10 Mg/Ml IV 0 mcg/kg/min TITR HUONG 0 mls/hr Titration Protocol 5 MCG/KG/MIN Ceftriaxone Sodium 1 gm in 50 mls @ 100 mls/hr 11/10/18 14:00 11/11/18 09:36 Rocephin/Ns 1 Gm/50 Ml IV 100 mls/hr Q24HR HUONG Administration Protocol Vancomycin HCl 1 gm in 250 mls @ 166.667 mls/hr 11/11/18 04:00 11/11/18 16:52 Vancomycin/Ns 1 Gm/250 Ml IV 166.667 mls/hr Q12H HUONG Administration Lactulose 30 gm 11/08/18 20:00 11/11/18 09:30 Cephulac PO 30 gm TID HUONG Administration Lamotrigine 25 mg 11/08/18 22:00 11/11/18 09:38 Lamictal PO 25 mg BID HUONG Administration Levetiracetam 1,500 mg 11/08/18 22:00 11/11/18 09:40 Keppra PO 1,500 mg BID HUONG Administration Levothyroxine Sodium 75 mcg 11/09/18 06:00 11/11/18 06:37 Synthroid PO 75 mcg DAILY@0600 HUONG Administration Lorazepam 2 mg 11/08/18 14:18 Ativan IV Q1HR PRN CIWA-Ar 8-15 Multi-Ingred Cream/Lotion/Oil/Oint 1 applic 11/08/18 11:37 Artificial Tears Ophth Oint OU Q4HR PRN Dry Eye(s) Multivitamins 1 each 11/09/18 10:00 11/11/18 09:38 Theragran Tab PO 1 each DAILY HUONG Administration Ondansetron HCl 4 mg 11/11/18 13:20 Zofran IV Q8H PRN Nausea And Vomiting Propranolol HCl 40 mg 11/09/18 10:00 11/11/18 09:42 Inderal PO 40 mg QDAY HUONG Administration Rifaximin 550 mg 11/08/18 22:00 11/11/18 09:45 Xifaxan PO 550 mg BID HUONG Administration Simple Syrup 15 ml 11/08/18 15:47 Simple Syrup FEEDTUBE PRN PRN Hypoglycemia Simple Syrup 30 ml 11/08/18 15:47 Simple Syrup FEEDTUBE PRN PRN Hypoglycemia Sodium Bicarbonate 325 mg 11/08/18 15:47 Sodium Bicarbonate FEEDTUBE PRN PRN For Clogged Feeding Tube Sodium Chloride 5 ml 11/08/18 11:37 Nacl 0.9% 500 Ml IV DIRECT PRN ARTERIAL COSTUME MISTRESS Sodium Chloride 10 ml 11/08/18 22:00 11/11/18 10:05 Sodium Chloride Flush Syringe 10 Ml IV 10 ml BID HUONG Administration Sodium Chloride 10 ml 11/08/18 13:32 Sodium Chloride Flush Syringe 10 Ml IV PRN PRN LINE FLUSH Spironolactone 100 mg 11/09/18 10:00 11/11/18 09:40 Aldactone PO 100 mg QDAY HUONG Administration Thiamine HCl 100 mg 11/09/18 10:00 11/11/18 09:38 Vitamin B-1 PO 100 mg QDAY HUONG Administration
--- NOTE | 2018-11-11 21:19 | XRay Report ---
ABDOMEN 1 VIEW 8:51 PM INDICATION / CLINICAL INFORMATION: Check NG tube placement. COMPARISON: 09/30/2018. FINDINGS: TUBES / LINES: There is a feeding tube with the tip overlying the distal stomach, similar to the prio r study. BOWEL GAS PATTERN: No significant abnormality. FREE AIR / EXTRALUMINAL GAS: None seen. ADDITIONAL FINDINGS: There are multiple clustered calcifications in the right upper quadrant, unchang ed from the prior study. IMPRESSION: 1. Feeding tube tip overlies the distal stomach. 2. Multiple gallstones. Signer Name: Vicente Galeano MD Signed: 11/11/2018 9:14 PM Workstation Name: [id number]
--- NOTE | 2018-11-12 03:11 | XRay Report ---
CHEST 1 VIEW INDICATION / CLINICAL INFORMATION: follow up respiratory failure. COMPARISON: 11/11/2018 FINDINGS: SUPPORT DEVICES: Endotracheal tube is been removed. NG tube has been replaced with enteric feeding tu be. HEART / MEDIASTINUM: No significant abnormality. LUNGS / PLEURA: Improving left basilar pleural-parenchymal disease and retrocardiac masslike density. Mild pulmonary vascular congestion persists. No pneumothorax. ADDITIONAL FINDINGS: No significant additional findings. IMPRESSION: 1. Improving left basilar pleural-parenchymal disease and masslike density. Signer Name: Lawanda Fletcher MD Signed: 11/12/2018 3:07 AM Workstation Name: [id number]
[2018-11-12] MEDS: VANCOMYCIN/NS 1 GM/250 ML 1 GM/250 ML BAG IV SCH ×2 (04:05→16:28)
[2018-11-12 04:52] LABS: Hemoglobin 9.8 gm/dl (10.1-14.3); Mean Corpuscular HGB Conc 32 % (30-34); Mean Corpuscular Volume 82 fl (79-97); Platelet Count 153 K/mm3 (140-440); Red Blood Count 3.78 M/mm3 (3.65-5.03)
[2018-11-12 04:53] LABS: Red Cell Distribution Width 22.8 % (13.2-15.2)
[2018-11-12 05:17] LABS: Alanine Aminotransferase 18 units/L (7-56); Albumin 2.8 g/dL (3.9-5); BUN/Creatinine Ratio 22; Blood Urea Nitrogen 11 mg/dL (7-17); Calcium 9.1 mg/dL (8.4-10.2); Hemolysis Index 0
[2018-11-12] MEDS: SYNTHROID PO SCH (05:32)
[2018-11-12] MEDS: DUONEB *Not for PRN Use IH SCH ×3 (08:04→20:00)
--- NOTE | 2018-11-12 08:49 | Progress Note ---
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 Pt is intubated and unable to provide history. Pt history taken from EMS, and ED staff, and medical record. As per staff, the patient was in her usual state of health at bedtime which was around 2030 hrs. Pt was found to be confused with decreased level of consciousness. EMS notified and upon arrival the patient was found to be in distress. Pt transported to [facility]. Pt seen and evaluated in ED and found to have Encephalopathy, and Acute Hypoxemic Respiratory Failure and was unable to protect her airway. Pt intubated and placed on vent support, admitted to ICU. She improved, extubated 11/11/18. Acute respiratory failure was intubated, on vent, now extubated yesterday 11/11 Pulm following Hepatic encephalopathy with hyperammonia Improved down to 520. Lactulose Consulted GI, following Alcoholic cirrhosis of liver Alcohol use Hypertension Monitor BP COPD Seizure disorder seizure precautions Continue Keppra and Lamictal. Hypothyroidism On Levothyroxine Bipolar disorder Dementia Full code stsatus History Interval history: Extubated yesterday No fever Hospitalist Physical - Physical exam Narrative exam: Gen: Not in acute distress, NG tube in nostril HEENT: Normocephalic, atraumatic Neck: supple, no JVD Heart: S1 and S2 reg, no murmurs, rubs or gallop Lungs: Clear, no crackles, no wheeze Abd: soft, non tender, non distended, normal BS Ext: No edema, no clubbing, no cyanosis, Neuro: Awake,alert,oriented - Constitutional Vitals: Temp Pulse Resp BP Pulse Ox 98.2 F 70 18 107/53 96 11/12/18 00:37 11/12/18 08:14 11/12/18 08:14 11/12/18 07:00 11/12/18 08:14 General appearance: Present: no acute distress Results - Labs CBC & Chem 7: 11/12/18 04:23 11/12/18 04:23 Labs: Laboratory Last Values WBC 7.2 K/mm3 (4.5-11.0) 11/12/18 04:23 RBC 3.78 M/mm3 (3.65-5.03) 11/12/18 04:23 Hgb 9.8 gm/dl (10.1-14.3) L 11/12/18 04:23 Hct 31.0 % (30.3-42.9) 11/12/18 04:23 MCV 82 fl (79-97) 11/12/18 04:23 MCH 26 pg (28-32) L 11/12/18 04:23 MCHC 32 % (30-34) 11/12/18 04:23 RDW 22.8 % (13.2-15.2) H 11/12/18 04:23 Plt Count 153 K/mm3 (140-440) 11/12/18 04:23 Lymph % (Auto) 3.2 % (13.4-35.0) L 11/09/18 05:41 Leake % (Auto) 6.5 % (0.0-7.3) 11/09/18 05:41 Eos % (Auto) 0.3 % (0.0-4.3) 11/09/18 05:41 Baso % (Auto) 0.6 % (0.0-1.8) 11/09/18 05:41 Lymph # 0.3 K/mm3 (1.2-5.4) L 11/09/18 05:41 Leake # 0.7 K/mm3 (0.0-0.8) 11/09/18 05:41 Eos # 0.0 K/mm3 (0.0-0.4) 11/09/18 05:41 Baso # 0.1 K/mm3 (0.0-0.1) 11/09/18 05:41 Add Manual Diff Complete 11/08/18 11:47 Total Counted 100 11/08/18 11:47 Seg Neutrophils % 89.4 % (40.0-70.0) H 11/09/18 05:41 Seg Neuts % (Manual) 65.0 % (40.0-70.0) 11/08/18 11:47 0 % 11/08/18 11:47 17.0 % (13.4-35.0) 11/08/18 11:47 Reactive Lymphs % (Man) 0 % 11/08/18 11:47 13.0 % (0.0-7.3) H 11/08/18 11:47 2.0 % (0.0-4.3) 11/08/18 11:47 3.0 % (0.0-1.8) H 11/08/18 11:47 0 % 11/08/18 11:47 0 % 11/08/18 11:47 0 % 11/08/18 11:47 0 % 11/08/18 11:47 Nucleated RBC % Not Reportable 11/08/18 11:47 Seg Neutrophils # 9.6 K/mm3 (1.8-7.7) H 11/09/18 05:41 Seg Neutrophils # Man 2.2 K/mm3 (1.8-7.7) 11/08/18 11:47 Band Neutrophils # 0.0 K/mm3 11/08/18 11:47 0.6 K/mm3 (1.2-5.4) L 11/08/18 11:47 Abs React Lymphs (Man) 0.0 K/mm3 11/08/18 11:47 0.4 K/mm3 (0.0-0.8) 11/08/18 11:47 0.1 K/mm3 (0.0-0.4) 11/08/18 11:47 0.1 K/mm3 (0.0-0.1) 11/08/18 11:47 0.0 K/mm3 11/08/18 11:47 0.0 K/mm3 11/08/18 11:47 0.0 K/mm3 11/08/18 11:47 Blast Cells # 0.0 K/mm3 11/08/18 11:47 WBC Morphology Not Reportable 11/08/18 11:47 Hypersegmented Neuts Not Reportable 11/08/18 11:47 Hyposegmented Neuts Not Reportable 11/08/18 11:47 Hypogranular Neuts Not Reportable 11/08/18 11:47 Not Reportable 11/08/18 11:47 Not Reportable 11/08/18 11:47 Not Reportable 11/08/18 11:47 Not Reportable 11/08/18 11:47 Not Reportable 11/08/18 11:47 Not Reportable 11/08/18 11:47 Consistent w auto 11/08/18 11:47 Not Reportable 11/08/18 11:47 Plt Clumps, EDTA Not Reportable 11/08/18 11:47 Not Reportable 11/08/18 11:47 Few 11/08/18 11:47 Not Reportable 11/08/18 11:47 Plt Morphology Comment Not Reportable 11/08/18 11:47 RBC Morphology Not Reportable 11/08/18 11:47 Dimorphic RBCs Not Reportable 11/08/18 11:47 Not Reportable 11/08/18 11:47 Not Reportable 11/08/18 11:47 1+ 11/08/18 11:47 Few 11/08/18 11:47 Not Reportable 11/08/18 11:47 Not Reportable 11/08/18 11:47 Not Reportable 11/08/18 11:47 Not Reportable 11/08/18 11:47 Not Reportable 11/08/18 11:47 Not Reportable 11/08/18 11:47 Rare 11/08/18 11:47 Not Reportable 11/08/18 11:47 Not Reportable 11/08/18 11:47 Not Reportable 11/08/18 11:47 Not Reportable 11/08/18 11:47 Not Reportable 11/08/18 11:47 Not Reportable 11/08/18 11:47 Not Reportable 11/08/18 11:47 Few 11/08/18 11:47 Acanthocytes (Spur) Not Reportable 11/08/18 11:47 Rouleaux Not Reportable 11/08/18 11:47 Not Reportable 11/08/18 11:47 Not Reportable 11/08/18 11:47 Not Reportable 11/08/18 11:47 Not Reportable 11/08/18 11:47 Hem Pathologist Commnt No 11/08/18 11:47 PT 18.3 Sec. (12.2-14.9) H 11/11/18 04:46 INR 1.56 (0.87-1.13) H 11/11/18 04:46 APTT 30.4 Sec. (24.2-36.6) 11/08/18 11:47 15.4 Sec. (15.1-19.6) 11/08/18 11:47 POC ABG pH 7.443 (7.35-7.45) 11/11/18 12:23 POC ABG pCO2 34.7 (35-45) L 11/11/18 12:23 POC ABG pO2 57 (80-105) L 11/11/18 12:23 POC ABG HCO3 23.8 (22-26 mml/L) 11/11/18 12:23 POC ABG Total CO2 25 (23-27mmol/L) 11/11/18 12:23 POC ABG O2 Sat 91 11/11/18 12:23 POC ABG Base Excess 0 ((-2) - (+3)mmol/L) 11/11/18 12:23 45 % 11/11/18 12:23 Sodium 142 mmol/L (137-145) 11/12/18 04:23 Potassium 3.7 mmol/L (3.6-5.0) 11/12/18 04:23 Chloride 107.4 mmol/L (98-107) H 11/12/18 04:23 Carbon Dioxide 26 mmol/L (22-30) 11/12/18 04:23 12 mmol/L 11/12/18 04:23 BUN 11 mg/dL (7-17) 11/12/18 04:23 0.5 mg/dL (0.7-1.2) L 11/12/18 04:23 Estimated GFR > 60 ml/min 11/12/18 04:23 22 % 11/12/18 04:23 Glucose 124 mg/dL (65-100) H 11/12/18 04:23 POC Glucose 101 (70-105) 11/12/18 08:20 Lactic Acid 1.90 mmol/L (0.7-2.0) 11/09/18 13:15 Calcium 9.1 mg/dL (8.4-10.2) 11/12/18 04:23 Magnesium 1.80 mg/dL (1.7-2.3) 11/08/18 11:47 1.20 mg/dL (0.1-1.2) 11/12/18 04:23 AST 30 units/L (5-40) 11/12/18 04:23 ALT 18 units/L (7-56) 11/12/18 04:23 163 units/L (35-129) H 11/12/18 04:23 52.0 umol/L (25-60) 11/12/18 04:23 27 units/L (30-135) L 11/08/18 11:47 CK-MB (CK-2) < 1.0 ng/mL (0.0-4.0) 11/08/18 11:47 CK-MB (CK-2) Rel Index 3.7 (0-4) 11/08/18 11:47 < 0.010 ng/mL (0.00-0.029) 11/08/18 11:47 0.60 mg/dL (0.00-1.30) 11/09/18 05:41 5.9 g/dL (6.3-8.2) L 11/12/18 04:23 2.8 g/dL (3.9-5) L 11/12/18 04:23 0.9 % 11/12/18 04:23 TSH 2.370 mlU/mL (0.270-4.200) 11/08/18 11:47 Free T4 0.92 ng/dL (0.76-1.46) 11/08/18 11:47 Jihan (Yellow) 11/08/18 12:00 Cloudy (Clear) 11/08/18 12:00 8.0 (5.0-7.0) H 11/08/18 12:00 Ur Specific [place] 1.017 (1.003-1.030) 11/08/18 12:00 <15 mg/dl mg/dL (Negative) 11/08/18 12:00 Neg mg/dL (Negative) 11/08/18 12:00 Neg mg/dL (Negative) 11/08/18 12:00 Neg (Negative) 11/08/18 12:00 Neg (Negative) 11/08/18 12:00 Neg (Negative) 11/08/18 12:00 < 2.0 mg/dL (<2.0) 11/08/18 12:00 Ur Leukocyte Esterase Neg (Negative) 11/08/18 12:00 4.0 /HPF (0.0-6.0) 11/08/18 12:00 2.0 /HPF (0.0-6.0) 11/08/18 12:00 U Epithel Cells (Auto) 1.0 /HPF (0-13.0) 11/08/18 12:00 3+ /HPF (Negative) 11/08/18 12:00 Few /HPF 11/08/18 12:00 Plasma/Serum Alcohol < 0.01 % (0-0.07) 11/08/18 11:47 Active Medications - Current Medications Current Medications: Generic Name Dose Route Start Last Admin Trade Name Freq PRN Reason Stop Dose Admin Albuterol 2.5 mg 11/08/18 13:32 Proventil IH Q3HRT PRN Shortness Of Breath Albuterol/Ipratropium 1 ampul 11/10/18 08:00 11/12/18 08:04 Duoneb *Not For Prn Use* IH 1 ampul TIDRT HUONG Administration Lipase/Protease/Amylase 1 each 11/08/18 15:47 Pancreaze 10,500 Unit FEEDTUBE PRN PRN For Clogged Feeding Tube Famotidine 20 mg 11/09/18 12:00 11/11/18 09:38 Pepcid PO 20 mg QDAY HUONG Administration Fentanyl 50 mcg 11/08/18 13:51 Sublimaze IV Q10MIN PRN ANALGESIA Fluticasone Propionate 50 mcg 11/09/18 10:00 11/11/18 09:43 Flonase NS 50 mcg QDAY HUONG Administration Folic Acid 1 mg 11/09/18 10:00 11/11/18 09:45 Folvite PO 1 mg QDAY HUONG Administration Hydrophilic Ointment 1 applic 11/08/18 11:37 Vaseline Lip Therapy TP Q2HR PRN Dry Lips Fentanyl Citrate 2,000 mcg in 100 mls @ 3.275 mls/hr 11/08/18 14:00 11/10/18 19:16 Fentanyl Drip Premix IV 0 mcg/kg/hr TITR HUONG 0 mls/hr Titration Protocol 1 MCG/KG/HR Propofol 1,000 mg in 100 mls @ 1.965 mls/hr 11/08/18 15:00 11/10/18 19:33 Diprivan 10 Mg/Ml IV 0 mcg/kg/min TITR HUONG 0 mls/hr Titration Protocol 5 MCG/KG/MIN Ceftriaxone Sodium 1 gm in 50 mls @ 100 mls/hr 11/10/18 14:00 11/11/18 09:36 Rocephin/Ns 1 Gm/50 Ml IV 100 mls/hr Q24HR HUONG Administration Protocol Vancomycin HCl 1 gm in 250 mls @ 166.667 mls/hr 11/11/18 04:00 11/12/18 04:05 Vancomycin/Ns 1 Gm/250 Ml IV 166.667 mls/hr Q12H HUONG Administration Lactulose 30 gm 11/08/18 20:00 11/11/18 20:12 Cephulac PO 30 gm TID HUONG Administration Lamotrigine 25 mg 11/08/18 22:00 11/11/18 21:29 Lamictal PO 25 mg BID HUONG Administration Levetiracetam 1,500 mg 11/08/18 22:00 11/11/18 21:29 Keppra PO 1,500 mg BID HUONG Administration Levothyroxine Sodium 75 mcg 11/09/18 06:00 11/12/18 05:32 Synthroid PO 75 mcg DAILY@0600 HUONG Administration Lorazepam 2 mg 11/08/18 14:18 Ativan IV Q1HR PRN CIWA-Ar 8-15 Multi-Ingred Cream/Lotion/Oil/Oint 1 applic 11/08/18 11:37 Artificial Tears Ophth Oint OU Q4HR PRN Dry Eye(s) Multivitamins 1 each 11/09/18 10:00 11/11/18 09:38 Theragran Tab PO 1 each DAILY HUONG Administration Ondansetron HCl 4 mg 11/11/18 13:20 Zofran IV Q8H PRN Nausea And Vomiting Propranolol HCl 40 mg 11/09/18 10:00 11/11/18 09:42 Inderal PO 40 mg QDAY HUONG Administration Rifaximin 550 mg 11/08/18 22:00 11/11/18 21:29 Xifaxan PO 550 mg BID HUONG Administration Simple Syrup 15 ml 11/08/18 15:47 Simple Syrup FEEDTUBE PRN PRN Hypoglycemia Simple Syrup 30 ml 11/08/18 15:47 Simple Syrup FEEDTUBE PRN PRN Hypoglycemia Sodium Bicarbonate 325 mg 11/08/18 15:47 Sodium Bicarbonate FEEDTUBE PRN PRN For Clogged Feeding Tube Sodium Chloride 5 ml 11/08/18 11:37 Nacl 0.9% 500 Ml IV DIRECT PRN ARTERIAL MULTIPLE DRUM SANDER Sodium Chloride 10 ml 11/08/18 22:00 11/11/18 21:29 Sodium Chloride Flush Syringe 10 Ml IV 10 ml BID HUONG Administration Sodium Chloride 10 ml 11/08/18 13:32 Sodium Chloride Flush Syringe 10 Ml IV PRN PRN LINE FLUSH Spironolactone 100 mg 11/09/18 10:00 11/11/18 09:40 Aldactone PO 100 mg QDAY HUONG Administration Thiamine HCl 100 mg 11/09/18 10:00 11/11/18 09:38 Vitamin B-1 PO 100 mg QDAY HUONG Administration Nutrition/Malnutrition Assess - Dietary Evaluation Nutrition/Malnutrition Findings: Nutrition Notes Start: 11/08/18 15:38 Freq: Status: Active Protocol: Document 11/10/18 17:20 RM (Rec: 11/10/18 17:24 RM [email or web address]) Nutrition Notes Initial or Follow up Reassessment Current Diagnosis COPD,Hypertension Other Pertinent Diagnosis Hx CVA,GERD, Dementia, ESLD Current Diet Vital 1.2 at 55 ml/hr Labs/Tests Reviewed Pertinent Medications Reviewed Height 5 ft 8 in Weight 65.499 kg [place] Body Weight (kg) 63.63 BMI 21.9 Subjective/Other Information No formula hanging and pump off at time of visit. Per nurse TF was stopped for ultrasound. Stated that pt was tolerating TF at 45 ml/hr prior to ultrasound and that she intends to resume TF. Burn Absent Trauma Absent #1 Nutrition Diagnosis Inadequate oral intake Diagnosis Progress(for reassessment Continues documentation) Is patient on ventilator? Yes Is Patient Ambulatory and/or Out of Bed No REE-([facility]-confined to bed) 0816.854 Calculation Used for Recommendations [facility] Additional Notes Protein Needs: 79-131g (1.2-2g /kg) Fluid Needs: 1 ml/kcal Nutrition Intervention Nutrition Support: Vital 1.2 at 55 ml/hr. Water flush of 100 mls q 4 hrs . Kcal 1,584 Protein (gm) 99 Fluid (mL) 1,071 Goal #1 TF tolerance Goal #2 Meet at least 80% of calorie and protein needs via TF Anticipated Discharge Needs: Unable to determine at this time Follow-Up By: 11/12/18 Additional Comments Follow [facility]
[2018-11-12] MEDS: CEPHULAC PO SCH ×3 (08:57→23:27)
[2018-11-12] MEDS: ALDACTONE PO SCH (09:13)
[2018-11-12] MEDS: ROCEPHIN/NS 1 GM/50 ML 1 GM/50 ML BAG IV SCH (09:13)
[2018-11-12] MEDS: PEPCID PO SCH (09:15)
[2018-11-12] MEDS: FOLVITE PO SCH (09:15)
[2018-11-12] MEDS: VITAMIN B-1 PO SCH (09:15)
[2018-11-12] MEDS: KEPPRA PO SCH ×2 (09:15→23:26)
[2018-11-12] MEDS: LaMICtal PO SCH (09:15)
[2018-11-12] MEDS: XIFAXAN PO SCH ×2 (09:15→23:26)
[2018-11-12] MEDS: SODIUM CHLORIDE FLUSH SYRINGE 10 ML IV SCH ×2 (09:16→23:28)
[2018-11-12] MEDS: FLONASE NS SCH (09:16)
[2018-11-12] MEDS: THERAGRAN Tab PO SCH (09:18)
--- NOTE | 2018-11-12 10:11 | Gastroenterology Progress Note ---
Assessment and Plan 1. MS changes - improved. Likely hepatic encephalopathy. Reason for decompensation unclear, though need to consider infectious process. WBC improving. Pt apparently has underlying mild dementia as well. - continue meds and monitor. 2. Cirrhosis - due to EtOH in past. Stable. Subjective Date of service: 11/12/18 Principal diagnosis: Hepatic encephalopathy Interval history: Patient remains in ICU on HFO2. Noted to be alert this am. Denies abd pain, N/V, or signs of bleeding. Objective - Constitutional Vitals: Temp Pulse Resp BP Pulse Ox 97.4 F L 64 16 102/50 93 11/12/18 08:10 11/12/18 09:13 11/12/18 09:00 11/12/18 09:13 11/12/18 09:00 General appearance: no acute distress - Respiratory Respiratory: bilateral: diminished - Cardiovascular Rhythm: regular - Gastrointestinal General gastrointestinal: Present: soft, non-tender, non-distended, normal bowel sounds - Labs CBC & Chem 7: 11/12/18 04:23 11/12/18 04:23 Labs: Laboratory Results - last 24 hr 11/11/18 11/11/18 11/12/18 11:38 12:23 04:23 WBC 7.2 RBC 3.78 Hgb 9.8 L Hct 31.0 MCV 82 MCH 26 L MCHC 32 RDW 22.8 H Plt Count 153 POC ABG pH 7.443 POC ABG pCO2 34.7 L POC ABG pO2 57 L POC ABG HCO3 23.8 POC ABG Total CO2 25 POC ABG O2 Sat 91 POC ABG Base Excess 0 FiO2 45 Sodium Potassium Chloride Carbon Dioxide Anion Gap BUN Creatinine Estimated GFR BUN/Creatinine Ratio Glucose POC Glucose 123 H Calcium Total Bilirubin AST ALT Alkaline Phosphatase Ammonia Total Protein Albumin Albumin/Globulin Ratio 11/12/18 11/12/18 11/12/18 04:23 04:23 08:20 WBC RBC Hgb Hct MCV MCH MCHC RDW Plt Count POC ABG pH POC ABG pCO2 POC ABG pO2 POC ABG HCO3 POC ABG Total CO2 POC ABG O2 Sat POC ABG Base Excess FiO2 Sodium 142 Potassium 3.7 Chloride 107.4 H Carbon Dioxide 26 Anion Gap 12 BUN 11 Creatinine 0.5 L Estimated GFR > 60 BUN/Creatinine Ratio 22 Glucose 124 H POC Glucose 101 Calcium 9.1 Total Bilirubin 1.20 AST 30 ALT 18 Alkaline Phosphatase 163 H Ammonia 52.0 Total Protein 5.9 L Albumin 2.8 L Albumin/Globulin Ratio 0.9
--- NOTE | 2018-11-12 11:33 | Progress Note ---
Assessment and Plan Cultures: 11/08/2018 blood cultures: no growth 11/08/2018 urine culture: 10K-100K Enterococcus species - VRE 11/08/2018 tracheal aspirate: Usual respiratory faustina with moderate growth of MRSA A/P: 62-year-old [facility] resident with end-stage liver disease attributed to alcoholic cirrhosis, esophageal varices, hypertension, COPD, dementia, seizure disorder, history of CVA was brought to the emergency room on 11/08/2018 with altered mental status. 1) Leucocytosis: etiology unclear. UA not consistent with UTI. CXR doesn't show a pneumonia, except a 3 cm retrocardiac opacity, that was noted on CTA chest from 09/2018 that showed " Prominent soft tissue density lesion near the left infrahilar region from the GE junction to the left pulmonary vein may represent varices with collateralized return. " No clinical concern for SBP. 2) Enterococcus VRE in urine culture: no pyuria. Unlikely UTI. colonization, no treatment indicated. 3) MRSA in tracheal aspirate: no pneumonia on CXR. Likely colonization. On abx trial as of now. Given response, treat for possible tracheobronchitis for 5 total days. 4) ESLD: GI following. On lactulose, rifaximin. RUQ US showed cirrhotic liver. 5) Acute encephalopathy: improving. Recs: - discontinued IV Ceftriaxone - continue IV Vancomycin with PK consult (Day 3 of 5) - contact isolation for VRE and MRSA Akshat Powell MD, FACP [facility] ([facility] C: [phone] O: [phone] F: [phone] Subjective Date of service: 11/12/18 Principal diagnosis: Hepatic encephalopathy Interval history: No fever. Extubated. Denies any complaints. Objective - Exam Narrative Exam: Physical Exam: Constitutional: awake, opens eyes, follows commands Head, Ears, Nose: Normocephalic, atraumatic. External ears, nose normal Eyes: Conjunctivae/corneas clear. No icterus. No ptosis. Neck: Supple, no meningeal signs Cardiovascular: S1, S2 normal. Respiratory: Good air entry, clear to auscultation bilaterally GI: Soft, non-tender; bowel sounds normal. No peritoneal signs Musculoskeletal: No pedal edema, no cyanosis. Skin: No rash or abscess Hem/Lymphatic: No palpable cervical or supraclavicular nodes. No lymphangitis Psych: no agitation Neurological: awake, opens eyes, follows commands. - Constitutional Vitals: Vital Signs Temp Pulse Resp BP Pulse Ox 97.4 F L 62 17 82/39 92 11/12/18 08:10 11/12/18 11:00 11/12/18 11:00 11/12/18 11:00 11/12/18 11:00 Temperature -Last 24 Hours Temperature 97.4 F Temperature 98.2 F Temperature 9804 F Temperature 98.0 F Temperature 98.0 F - Labs CBC & Chem 7: 11/12/18 04:23 11/12/18 04:23 Labs: Abnormal lab results 11/11/18 11/11/18 11/12/18 Range/Units 11:38 12:23 04:23 Hgb 9.8 L (10.1-14.3) gm/dl MCH 26 L (28-32) pg RDW 22.8 H (13.2-15.2) % POC ABG pCO2 34.7 L (35-45) POC ABG pO2 57 L (80-105) Chloride (98-107) mmol/L Creatinine (0.7-1.2) mg/dL Glucose (65-100) mg/dL POC Glucose 123 H (70-105) Alkaline Phosphatase (35-129) units/L Total Protein (6.3-8.2) g/dL Albumin (3.9-5) g/dL 11/12/18 Range/Units 04:23 Hgb (10.1-14.3) gm/dl MCH (28-32) pg RDW (13.2-15.2) % POC ABG pCO2 (35-45) POC ABG pO2 (80-105) Chloride 107.4 H (98-107) mmol/L Creatinine 0.5 L (0.7-1.2) mg/dL Glucose 124 H (65-100) mg/dL POC Glucose (70-105) Alkaline Phosphatase 163 H (35-129) units/L Total Protein 5.9 L (6.3-8.2) g/dL Albumin 2.8 L (3.9-5) g/dL - Imaging and cardiology Chest x-ray: report reviewed, image reviewed (no pneumonia seen.)
[2018-11-12] MEDS ORDERED: POTASSIUM CHLORIDE FEEDTUBE ONE (12:00)
--- NOTE | 2018-11-12 12:25 | Progress Note ---
Assessment and Plan Acute hypoxemic respiratory failure,s/p mechanical ventilatory support, on NIPPV. Decompensated liver cirrhosis. Hepatic encephalopathy. Hyperammonemia. Coagulopathy as a result of the liver cirrhosis. History of alcohol abuse and dependence. Hypothyroidism. History of chronic obstructive lung disease. Coronary artery disease. Seizure disorder. Leukopenia. Hyperbilirubinemia. Hypoalbuminemia. 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/dysphagia screen prior to any oral nutritional support - continue supplemental oxygen to keep O2 sats 88-90% - continue accuchecks with glycemic control per SSI for target blood glucose 140 - 180mg/dL - Prevention of delirium, maintenance of sleep-wake cycle - fAntibitoics per ID - continue AED's (keppra) for seizure disorder - watch for DT's - continue thiamine and folate supplementation - enteral nutrition as tolerated - continue mobility protocols for pressure ulcer prophylaxis - GI prophylaxis is with Pepcid - VTE prophylaxis CONDITION: FAIR PROGNOSIS: GUARDED CODE STATUS: FULL CODE She remains tenuous, will monitor in the ICU overnight prior to transferring. Discussed with Dr. White and the ICU team Subjective Date of service: 11/12/18 Principal diagnosis: Hepatic encephalopathy Interval history: Patient is seen today for: Acute hypoxemic respiratory failure s/p MVS; Decompensated liver cirrhosis; Hepatic encephalopathy; Hyperammonemia; Coagulopathy; History of alcohol abuse and dependence; Hypothyroidism; COPD; CAD; Seizure disorder. Seen and examined at bedside; 24hour events reviewed; nursing and respiratory care staff consulted; no adverse overnight events reported to me;resting peacefully in bed; continues to require NIPPV support fro work of breathing, post extubation yesterday, denies any chest pain or shortness of breath. denies N/V/F/C; no emesis or overt aspiration and more alert and appropriate Objective Vital Signs - 12hr 11/12/18 11/12/18 11/12/18 00:37 01:00 02:00 Temperature 98.2 F Pulse Rate 72 77 Pulse Rate [ Anterior Bilateral Throughout] Pulse Rate [ From Monitor] Respiratory 19 10 L Rate Respiratory Rate [Anterior Bilateral Throughout] Blood Pressure 104/59 112/53 O2 Sat by Pulse 99 97 Oximetry 11/12/18 11/12/18 11/12/18 03:00 04:00 04:32 Temperature Pulse Rate 73 68 Pulse Rate [ Anterior Bilateral Throughout] Pulse Rate [ 71 From Monitor] Respiratory 21 15 Rate Respiratory Rate [Anterior Bilateral Throughout] Blood Pressure 112/62 100/47 O2 Sat by Pulse 99 99 98 Oximetry 11/12/18 11/12/18 11/12/18 05:00 06:00 07:00 Temperature Pulse Rate 76 67 68 Pulse Rate [ Anterior Bilateral Throughout] Pulse Rate [ From Monitor] Respiratory 17 16 16 Rate Respiratory Rate [Anterior Bilateral Throughout] Blood Pressure 100/47 102/61 107/53 O2 Sat by Pulse 97 98 97 Oximetry 11/12/18 11/12/18 11/12/18 08:00 08:04 08:10 Temperature 97.4 F L Pulse Rate 65 Pulse Rate [ 64 Anterior Bilateral Throughout] Pulse Rate [ 62 From Monitor] Respiratory 16 Rate Respiratory 19 Rate [Anterior Bilateral Throughout] Blood Pressure 114/66 O2 Sat by Pulse 98 Oximetry 11/12/18 11/12/18 11/12/18 08:14 09:00 09:13 Temperature Pulse Rate 67 64 Pulse Rate [ 70 Anterior Bilateral Throughout] Pulse Rate [ From Monitor] Respiratory 16 Rate Respiratory 18 Rate [Anterior Bilateral Throughout] Blood Pressure 94/48 102/50 O2 Sat by Pulse 96 93 Oximetry 11/12/18 11/12/18 11/12/18 10:00 11:00 11:44 Temperature Pulse Rate 67 62 Pulse Rate [ Anterior Bilateral Throughout] Pulse Rate [ From Monitor] Respiratory 11 L 17 Rate Respiratory Rate [Anterior Bilateral Throughout] Blood Pressure 99/53 82/39 O2 Sat by Pulse 95 92 92 Oximetry Constitutional: no acute distress, alert, other (elderly and chronically ill looking CF, normocephalic with mildly increase resp effort on NIPPV) Eyes: non-icteric ENT: other (on BIPAP) Neck: supple, no lymphadenopathy, no JVD, other (no thyromegaly) Effort: mildly labored Ascultation: Bilateral: rhonchi Percussion: Bilateral: not dull Cardiovascular: regular rate and rhythm, other (S1,S2, no murmurs, no gallops or rubs) Gastrointestinal: normoactive bowel sounds, soft, non-tender, non-distended Integumentary: rash, other (spider naevi) Extremities: no cyanosis, no edema, pulses normal, no ischemia or petechiae Neurologic: normal mental status, non-focal exam (grossly), pupils equal and round, motor strength normal and Psychiatric: mood appropriate, affect normal CBC and BMP: 11/16/18 04:59 11/19/18 04:36 ABG, PT/INR, D-dimer: ABG POC ABG pH 7.443 (7.35-7.45) 11/11/18 12:23 POC ABG pCO2 34.7 (35-45) L 11/11/18 12:23 POC ABG pO2 57 (80-105) L 11/11/18 12:23 POC ABG HCO3 23.8 (22-26 mml/L) 11/11/18 12:23 POC ABG Total CO2 25 (23-27mmol/L) 11/11/18 12:23 POC ABG O2 Sat 91 11/11/18 12:23 PT/INR, D-dimer PT 18.3 Sec. (12.2-14.9) H 11/11/18 04:46 INR 1.56 (0.87-1.13) H 11/11/18 04:46 Abnormal lab findings: Abnormal Labs 11/08/18 11/08/18 11/08/18 11:47 11:47 11:47 WBC 3.4 L Hgb MCH 26 L RDW 21.6 H Lymph % (Auto) Lymph # Seg Neutrophils % Monocytes % (Manual) 13.0 H Basophils % (Manual) 3.0 H Seg Neutrophils # Lymphocytes # (Manual) 0.6 L PT 17.3 H INR 1.45 H POC ABG pH POC ABG pCO2 POC ABG pO2 Chloride BUN Creatinine 0.6 L Glucose 130 H POC Glucose Total Bilirubin 1.50 H Alkaline Phosphatase 140 H Ammonia Total Creatine Kinase 27 L Total Protein 6.0 L Albumin 3.0 L Urine pH 11/08/18 11/08/18 11/08/18 11:47 12:00 14:01 WBC Hgb MCH RDW Lymph % (Auto) Lymph # Seg Neutrophils % Monocytes % (Manual) Basophils % (Manual) Seg Neutrophils # Lymphocytes # (Manual) PT INR POC ABG pH 7.452 H POC ABG pCO2 32.8 L POC ABG pO2 127 H Chloride BUN Creatinine Glucose POC Glucose Total Bilirubin Alkaline Phosphatase Ammonia 123.0 H Total Creatine Kinase Total Protein Albumin Urine pH 8.0 H 11/08/18 11/08/18 11/09/18 14:34 15:13 04:31 WBC Hgb MCH RDW Lymph % (Auto) Lymph # Seg Neutrophils % Monocytes % (Manual) Basophils % (Manual) Seg Neutrophils # Lymphocytes # (Manual) PT INR POC ABG pH 7.468 H POC ABG pCO2 POC ABG pO2 76 L 73 L Chloride BUN Creatinine Glucose POC Glucose 112 H Total Bilirubin Alkaline Phosphatase Ammonia Total Creatine Kinase Total Protein Albumin Urine pH 11/09/18 11/09/18 11/09/18 05:41 05:41 05:41 WBC Hgb MCH 26 L RDW 21.5 H Lymph % (Auto) 3.2 L Lymph # 0.3 L Seg Neutrophils % 89.4 H Monocytes % (Manual) Basophils % (Manual) Seg Neutrophils # 9.6 H Lymphocytes # (Manual) PT INR POC ABG pH POC ABG pCO2 POC ABG pO2 Chloride BUN 6 L Creatinine 0.4 L Glucose POC Glucose Total Bilirubin 1.80 H Alkaline Phosphatase 153 H Ammonia 75.0 H Total Creatine Kinase Total Protein Albumin 3.2 L Urine pH 11/09/18 11/10/18 11/10/18 11:44 00:11 04:14 WBC Hgb MCH RDW Lymph % (Auto) Lymph # Seg Neutrophils % Monocytes % (Manual) Basophils % (Manual) Seg Neutrophils # Lymphocytes # (Manual) PT INR POC ABG pH POC ABG pCO2 POC ABG pO2 74 L Chloride BUN Creatinine Glucose POC Glucose 114 H 134 H Total Bilirubin Alkaline Phosphatase Ammonia Total Creatine Kinase Total Protein Albumin Urine pH 11/10/18 11/10/18 11/10/18 08:19 08:19 08:19 WBC 14.8 H Hgb MCH 26 L RDW 21.9 H Lymph % (Auto) Lymph # Seg Neutrophils % Monocytes % (Manual) Basophils % (Manual) Seg Neutrophils # Lymphocytes # (Manual) PT INR POC ABG pH POC ABG pCO2 POC ABG pO2 Chloride BUN Creatinine 0.5 L Glucose 117 H POC Glucose Total Bilirubin 1.30 H Alkaline Phosphatase 155 H Ammonia 62.0 H Total Creatine Kinase Total Protein 6.0 L Albumin 2.8 L Urine pH 11/11/18 11/11/18 11/11/18 00:02 04:16 04:46 WBC 12.2 H Hgb MCH 26 L RDW 22.4 H Lymph % (Auto) Lymph # Seg Neutrophils % Monocytes % (Manual) Basophils % (Manual) Seg Neutrophils # Lymphocytes # (Manual) PT INR POC ABG pH POC ABG pCO2 POC ABG pO2 58 L Chloride BUN Creatinine Glucose POC Glucose 112 H Total Bilirubin Alkaline Phosphatase Ammonia Total Creatine Kinase Total Protein Albumin Urine pH 11/11/18 11/11/18 11/11/18 04:46 04:46 05:50 WBC Hgb MCH RDW Lymph % (Auto) Lymph # Seg Neutrophils % Monocytes % (Manual) Basophils % (Manual) Seg Neutrophils # Lymphocytes # (Manual) PT 18.3 H INR 1.56 H POC ABG pH POC ABG pCO2 POC ABG pO2 Chloride BUN Creatinine 0.4 L Glucose 119 H POC Glucose 133 H Total Bilirubin Alkaline Phosphatase 152 H Ammonia Total Creatine Kinase Total Protein 6.1 L Albumin 2.8 L Urine pH 11/11/18 11/11/18 11/12/18 11:38 12:23 04:23 WBC Hgb 9.8 L MCH 26 L RDW 22.8 H Lymph % (Auto) Lymph # Seg Neutrophils % Monocytes % (Manual) Basophils % (Manual) Seg Neutrophils # Lymphocytes # (Manual) PT INR POC ABG pH POC ABG pCO2 34.7 L POC ABG pO2 57 L Chloride BUN Creatinine Glucose POC Glucose 123 H Total Bilirubin Alkaline Phosphatase Ammonia Total Creatine Kinase Total Protein Albumin Urine pH 11/12/18 11/12/18 04:23 11:24 WBC Hgb MCH RDW Lymph % (Auto) Lymph # Seg Neutrophils % Monocytes % (Manual) Basophils % (Manual) Seg Neutrophils # Lymphocytes # (Manual) PT INR POC ABG pH POC ABG pCO2 POC ABG pO2 Chloride 107.4 H BUN Creatinine 0.5 L Glucose 124 H POC Glucose 142 H Total Bilirubin Alkaline Phosphatase 163 H Ammonia Total Creatine Kinase Total Protein 5.9 L Albumin 2.8 L Urine pH Allied health notes reviewed: RT (Trial of HFOT to keep O2 sats 90% with NIPPV prn and qhs)
[2018-11-12] MEDS: INDERAL PO SCH (13:24)
[2018-11-13] MEDS: LaMICtal PO SCH ×3 (00:08→22:00)
[2018-11-13] MEDS: VANCOMYCIN/NS 1 GM/250 ML 1 GM/250 ML BAG IV SCH ×2 (03:13→16:13)
[2018-11-13 04:38] LABS: Hematocrit 33.7 % (30.3-42.9); Hemoglobin 10.5 gm/dl (10.1-14.3); Mean Corpuscular HGB Conc 31 % (30-34); Mean Corpuscular Volume 83 fl (79-97); Platelet Count 161 K/mm3 (140-440); Red Blood Count 4.08 M/mm3 (3.65-5.03)
[2018-11-13 04:45] LABS: Red Cell Distribution Width 22.7 % (13.2-15.2)
[2018-11-13 05:53] LABS: Alanine Aminotransferase 29 units/L (7-56); Albumin 2.7 g/dL (3.9-5); BUN/Creatinine Ratio 28; Blood Urea Nitrogen 11 mg/dL (7-17); Calcium 8.9 mg/dL (8.4-10.2); Hemolysis Index 3
[2018-11-13] MEDS: SYNTHROID PO SCH (06:08)
[2018-11-13] MEDS: CEPHULAC PO SCH ×3 (08:20→20:37)
[2018-11-13] MEDS: DUONEB *Not for PRN Use IH SCH ×3 (08:53→23:04)
[2018-11-13] MEDS: FLONASE NS SCH (09:11)
[2018-11-13] MEDS: KEPPRA PO SCH ×2 (09:12→22:00)
[2018-11-13] MEDS: FOLVITE PO SCH (09:14)
[2018-11-13] MEDS: PEPCID PO SCH (09:14)
[2018-11-13] MEDS: VITAMIN B-1 PO SCH (09:15)
[2018-11-13] MEDS: SODIUM CHLORIDE FLUSH SYRINGE 10 ML IV SCH ×2 (09:15→22:00)
[2018-11-13] MEDS: THERAGRAN Tab PO SCH (09:15)
[2018-11-13] MEDS: ALDACTONE PO SCH (10:30)
[2018-11-13] MEDS: INDERAL PO SCH (10:32)
[2018-11-13] MEDS: XIFAXAN PO SCH ×2 (10:33→22:00)
[2018-11-13] MEDS ORDERED: ALDACTONE ONE (10:36)
--- NOTE | 2018-11-13 10:46 | Gastroenterology Progress Note ---
Assessment and Plan 1. Hepatic encephalopathy 2. Decompensated cirrhosis 3. Ascites 4. Respiratory distress - weaned off bipap -cont lactulose and xifaxin -correct electrolytes/potassium Subjective Date of service: 11/13/18 Principal diagnosis: Hepatic encephalopathy Interval history: pt seen and examined; on high flow oxygen. sleeping but arousable and answers basic questions although still confused. Objective - Exam Narrative Exam: Gen: NAD, sleeping/arousable, confused HENT: dry mucous membranes, + NG tube CV: RRR Lungs: CTAB Abd: soft, nt, +bs Rectal tube : brown semi liquid stool - Constitutional Vitals: Temp Pulse Resp BP Pulse Ox 98 F 64 17 123/64 93 11/13/18 03:26 11/13/18 10:32 11/13/18 07:00 11/13/18 10:32 11/13/18 08:54 - Labs CBC & Chem 7: 11/13/18 04:03 11/13/18 04:03 Labs: Laboratory Results - last 24 hr 11/12/18 11/13/18 11/13/18 11:24 04:03 04:03 WBC 4.1 L RBC 4.08 Hgb 10.5 Hct 33.7 MCV 83 MCH 26 L MCHC 31 RDW 22.7 H Plt Count 161 Sodium 145 Potassium 3.2 L Chloride 109.1 H Carbon Dioxide 25 Anion Gap 14 BUN 11 Creatinine 0.4 L Estimated GFR > 60 BUN/Creatinine Ratio 28 Glucose 109 H POC Glucose 142 H Calcium 8.9 Total Bilirubin 0.90 AST 59 H ALT 29 Alkaline Phosphatase 213 H Ammonia Total Protein 5.9 L Albumin 2.7 L Albumin/Globulin Ratio 0.8 11/13/18 04:03 WBC RBC Hgb Hct MCV MCH MCHC RDW Plt Count Sodium Potassium Chloride Carbon Dioxide Anion Gap BUN Creatinine Estimated GFR BUN/Creatinine Ratio Glucose POC Glucose Calcium Total Bilirubin AST ALT Alkaline Phosphatase Ammonia 57.0 Total Protein Albumin Albumin/Globulin Ratio
--- NOTE | 2018-11-13 10:49 | Progress Note ---
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 Pt is intubated and unable to provide history. Pt history taken from EMS, and ED staff, and medical record. As per staff, the patient was in her usual state of health at bedtime which was around 2030 hrs. Pt was found to be confused with decreased level of consciousness. EMS notified and upon arrival the patient was found to be in distress. Pt transported to [facility]. Pt seen and evaluated in ED and found to have Encephalopathy, and Acute Hypoxemic Respiratory Failure and was unable to protect her airway. Pt intubated and placed on vent support, admitted to ICU. She improved, extubated 11/11/18. Acute respiratory failure was intubated, on vent, now extubated 11/11 Now on Oxygen by high flow Oxygen at 30 l/min, Fio2 50% and O2 sat 93% Pulm following Hepatic encephalopathy with hyperammonia Improved down to 520. Lactulose Consulted GI, following Alcoholic cirrhosis of liver Alcohol use Hypertension Monitor BP COPD Seizure disorder seizure precautions Continue Keppra and Lamictal. Hypothyroidism On Levothyroxine Bipolar disorder Dementia Full code stsatus History Interval history: Extubated 11/11 shortness of breath, still on high flow Oxygen No fever Hospitalist Physical - Physical exam Narrative exam: Gen: Not in acute distress, HEENT: Normocephalic, atraumatic Neck: supple, no JVD Heart: S1 and S2 reg, no murmurs, rubs or gallop Lungs: Clear, no crackles, no wheeze Abd: soft, non tender, non distended, normal BS Ext: No edema, no clubbing, no cyanosis, Neuro: Awake,alert,oriented - Constitutional Vitals: Temp Pulse Resp BP Pulse Ox 98 F 64 17 123/64 93 11/13/18 03:26 11/13/18 10:32 11/13/18 07:00 11/13/18 10:32 11/13/18 08:54 General appearance: Present: no acute distress Results - Labs CBC & Chem 7: 11/13/18 04:03 11/13/18 04:03 Labs: Laboratory Last Values WBC 4.1 K/mm3 (4.5-11.0) L 11/13/18 04:03 RBC 4.08 M/mm3 (3.65-5.03) 11/13/18 04:03 Hgb 10.5 gm/dl (10.1-14.3) 11/13/18 04:03 Hct 33.7 % (30.3-42.9) 11/13/18 04:03 MCV 83 fl (79-97) 11/13/18 04:03 MCH 26 pg (28-32) L 11/13/18 04:03 MCHC 31 % (30-34) 11/13/18 04:03 RDW 22.7 % (13.2-15.2) H 11/13/18 04:03 Plt Count 161 K/mm3 (140-440) 11/13/18 04:03 Lymph % (Auto) 3.2 % (13.4-35.0) L 11/09/18 05:41 [place] % (Auto) 6.5 % (0.0-7.3) 11/09/18 05:41 Eos % (Auto) 0.3 % (0.0-4.3) 11/09/18 05:41 Baso % (Auto) 0.6 % (0.0-1.8) 11/09/18 05:41 Lymph # 0.3 K/mm3 (1.2-5.4) L 11/09/18 05:41 [place] # 0.7 K/mm3 (0.0-0.8) 11/09/18 05:41 Eos # 0.0 K/mm3 (0.0-0.4) 11/09/18 05:41 Baso # 0.1 K/mm3 (0.0-0.1) 11/09/18 05:41 Add Manual Diff Complete 11/08/18 11:47 Total Counted 100 11/08/18 11:47 Seg Neutrophils % 89.4 % (40.0-70.0) H 11/09/18 05:41 Seg Neuts % (Manual) 65.0 % (40.0-70.0) 11/08/18 11:47 0 % 11/08/18 11:47 17.0 % (13.4-35.0) 11/08/18 11:47 Reactive Lymphs % (Man) 0 % 11/08/18 11:47 13.0 % (0.0-7.3) H 11/08/18 11:47 2.0 % (0.0-4.3) 11/08/18 11:47 3.0 % (0.0-1.8) H 11/08/18 11:47 0 % 11/08/18 11:47 0 % 11/08/18 11:47 0 % 11/08/18 11:47 0 % 11/08/18 11:47 Nucleated RBC % Not Reportable 11/08/18 11:47 Seg Neutrophils # 9.6 K/mm3 (1.8-7.7) H 11/09/18 05:41 Seg Neutrophils # Man 2.2 K/mm3 (1.8-7.7) 11/08/18 11:47 Band Neutrophils # 0.0 K/mm3 11/08/18 11:47 0.6 K/mm3 (1.2-5.4) L 11/08/18 11:47 Abs React Lymphs (Man) 0.0 K/mm3 11/08/18 11:47 0.4 K/mm3 (0.0-0.8) 11/08/18 11:47 0.1 K/mm3 (0.0-0.4) 11/08/18 11:47 0.1 K/mm3 (0.0-0.1) 11/08/18 11:47 0.0 K/mm3 11/08/18 11:47 0.0 K/mm3 11/08/18 11:47 0.0 K/mm3 11/08/18 11:47 Blast Cells # 0.0 K/mm3 11/08/18 11:47 WBC Morphology Not Reportable 11/08/18 11:47 Hypersegmented Neuts Not Reportable 11/08/18 11:47 Hyposegmented Neuts Not Reportable 11/08/18 11:47 Hypogranular Neuts Not Reportable 11/08/18 11:47 Not Reportable 11/08/18 11:47 Not Reportable 11/08/18 11:47 Not Reportable 11/08/18 11:47 Not Reportable 11/08/18 11:47 Not Reportable 11/08/18 11:47 Not Reportable 11/08/18 11:47 Consistent w auto 11/08/18 11:47 Not Reportable 11/08/18 11:47 Plt Clumps, EDTA Not Reportable 11/08/18 11:47 Not Reportable 11/08/18 11:47 Few 11/08/18 11:47 Not Reportable 11/08/18 11:47 Plt Morphology Comment Not Reportable 11/08/18 11:47 RBC Morphology Not Reportable 11/08/18 11:47 Dimorphic RBCs Not Reportable 11/08/18 11:47 Not Reportable 11/08/18 11:47 Not Reportable 11/08/18 11:47 1+ 11/08/18 11:47 Few 11/08/18 11:47 Not Reportable 11/08/18 11:47 Not Reportable 11/08/18 11:47 Not Reportable 11/08/18 11:47 Not Reportable 11/08/18 11:47 Not Reportable 11/08/18 11:47 Not Reportable 11/08/18 11:47 Rare 11/08/18 11:47 Not Reportable 11/08/18 11:47 Not Reportable 11/08/18 11:47 Not Reportable 11/08/18 11:47 Not Reportable 11/08/18 11:47 Not Reportable 11/08/18 11:47 Not Reportable 11/08/18 11:47 Not Reportable 11/08/18 11:47 Few 11/08/18 11:47 Acanthocytes (Spur) Not Reportable 11/08/18 11:47 Rouleaux Not Reportable 11/08/18 11:47 Not Reportable 11/08/18 11:47 Not Reportable 11/08/18 11:47 Not Reportable 11/08/18 11:47 Not Reportable 11/08/18 11:47 Hem Pathologist Commnt No 11/08/18 11:47 PT 18.3 Sec. (12.2-14.9) H 11/11/18 04:46 INR 1.56 (0.87-1.13) H 11/11/18 04:46 APTT 30.4 Sec. (24.2-36.6) 11/08/18 11:47 15.4 Sec. (15.1-19.6) 11/08/18 11:47 POC ABG pH 7.443 (7.35-7.45) 11/11/18 12:23 POC ABG pCO2 34.7 (35-45) L 11/11/18 12:23 POC ABG pO2 57 (80-105) L 11/11/18 12:23 POC ABG HCO3 23.8 (22-26 mml/L) 11/11/18 12:23 POC ABG Total CO2 25 (23-27mmol/L) 11/11/18 12:23 POC ABG O2 Sat 91 11/11/18 12:23 POC ABG Base Excess 0 ((-2) - (+3)mmol/L) 11/11/18 12:23 45 % 11/11/18 12:23 Sodium 145 mmol/L (137-145) 11/13/18 04:03 Potassium 3.2 mmol/L (3.6-5.0) L 11/13/18 04:03 Chloride 109.1 mmol/L (98-107) H 11/13/18 04:03 Carbon Dioxide 25 mmol/L (22-30) 11/13/18 04:03 14 mmol/L 11/13/18 04:03 BUN 11 mg/dL (7-17) 11/13/18 04:03 0.4 mg/dL (0.7-1.2) L 11/13/18 04:03 Estimated GFR > 60 ml/min 11/13/18 04:03 28 % 11/13/18 04:03 Glucose 109 mg/dL (65-100) H 11/13/18 04:03 POC Glucose 142 (70-105) H 11/12/18 11:24 Lactic Acid 1.90 mmol/L (0.7-2.0) 11/09/18 13:15 Calcium 8.9 mg/dL (8.4-10.2) 11/13/18 04:03 Magnesium 1.80 mg/dL (1.7-2.3) 11/08/18 11:47 0.90 mg/dL (0.1-1.2) 11/13/18 04:03 AST 59 units/L (5-40) H 11/13/18 04:03 ALT 29 units/L (7-56) 11/13/18 04:03 213 units/L (35-129) H 11/13/18 04:03 57.0 umol/L (25-60) 11/13/18 04:03 27 units/L (30-135) L 11/08/18 11:47 CK-MB (CK-2) < 1.0 ng/mL (0.0-4.0) 11/08/18 11:47 CK-MB (CK-2) Rel Index 3.7 (0-4) 11/08/18 11:47 < 0.010 ng/mL (0.00-0.029) 11/08/18 11:47 0.60 mg/dL (0.00-1.30) 11/09/18 05:41 5.9 g/dL (6.3-8.2) L 11/13/18 04:03 2.7 g/dL (3.9-5) L 11/13/18 04:03 0.8 % 11/13/18 04:03 TSH 2.370 mlU/mL (0.270-4.200) 11/08/18 11:47 Free T4 0.92 ng/dL (0.76-1.46) 11/08/18 11:47 Jihan (Yellow) 11/08/18 12:00 Cloudy (Clear) 11/08/18 12:00 8.0 (5.0-7.0) H 11/08/18 12:00 Ur Specific [place] 1.017 (1.003-1.030) 11/08/18 12:00 <15 mg/dl mg/dL (Negative) 11/08/18 12:00 Neg mg/dL (Negative) 11/08/18 12:00 Neg mg/dL (Negative) 11/08/18 12:00 Neg (Negative) 11/08/18 12:00 Neg (Negative) 11/08/18 12:00 Neg (Negative) 11/08/18 12:00 < 2.0 mg/dL (<2.0) 11/08/18 12:00 Ur Leukocyte Esterase Neg (Negative) 11/08/18 12:00 4.0 /HPF (0.0-6.0) 11/08/18 12:00 2.0 /HPF (0.0-6.0) 11/08/18 12:00 U Epithel Cells (Auto) 1.0 /HPF (0-13.0) 11/08/18 12:00 3+ /HPF (Negative) 11/08/18 12:00 Few /HPF 11/08/18 12:00 Plasma/Serum Alcohol < 0.01 % (0-0.07) 11/08/18 11:47 Active Medications - Current Medications Current Medications: Generic Name Dose Route Start Last Admin Trade Name Freq PRN Reason Stop Dose Admin Albuterol 2.5 mg 11/08/18 13:32 Proventil IH Q3HRT PRN Shortness Of Breath Albuterol/Ipratropium 1 ampul 11/10/18 08:00 11/13/18 08:53 Duoneb *Not For Prn Use* IH 1 ampul TIDRT HUONG Administration Lipase/Protease/Amylase 1 each 11/08/18 15:[address] 10,500 Unit FEEDTUBE PRN PRN For Clogged Feeding Tube Famotidine 20 mg 11/09/18 12:00 11/13/18 09:14 Pepcid PO 20 mg QDAY HUONG Administration Fentanyl 50 mcg 11/08/18 13:51 Sublimaze IV Q10MIN PRN ANALGESIA Fluticasone Propionate 50 mcg 11/09/18 10:00 11/13/18 09:11 Flonase NS 50 mcg QDAY HUONG Administration Folic Acid 1 mg 11/09/18 10:00 11/13/18 09:14 Folvite PO 1 mg QDAY HUONG Administration Hydrophilic Ointment 1 applic 11/08/18 11:37 Vaseline Lip Therapy TP Q2HR PRN Dry Lips Fentanyl Citrate 2,000 mcg in 100 mls @ 3.275 mls/hr 11/08/18 14:00 11/10/18 19:16 Fentanyl Drip Premix IV 0 mcg/kg/hr TITR HUONG 0 mls/hr Titration Protocol 1 MCG/KG/HR Propofol 1,000 mg in 100 mls @ 1.965 mls/hr 11/08/18 15:00 11/10/18 19:33 Diprivan 10 Mg/Ml IV 0 mcg/kg/min TITR HUONG 0 mls/hr Titration Protocol 5 MCG/KG/MIN Vancomycin HCl 1 gm in 250 mls @ 166.667 mls/hr 11/11/18 04:00 11/13/18 03:13 Vancomycin/Ns 1 Gm/250 Ml IV 166.667 mls/hr Q12H HUONG Administration Lactulose 30 gm 11/08/18 20:00 11/12/18 23:27 Cephulac PO 30 gm TID HUONG Administration Lamotrigine 25 mg 11/08/18 22:00 11/13/18 10:32 Lamictal PO 25 mg BID HUONG Administration Levetiracetam 1,500 mg 11/08/18 22:00 11/13/18 09:12 Keppra PO 1,500 mg BID HUONG Administration Levothyroxine Sodium 75 mcg 11/09/18 06:00 11/13/18 06:08 Synthroid PO 75 mcg DAILY@0600 HUONG Administration Lorazepam 2 mg 11/08/18 14:18 Ativan IV Q1HR PRN CIWA-Ar 8-15 Multi-Ingred Cream/Lotion/Oil/Oint 1 applic 11/08/18 11:37 Artificial Tears Ophth Oint OU Q4HR PRN Dry Eye(s) Multivitamins 1 each 11/09/18 10:00 11/13/18 09:15 Theragran Tab PO 1 each DAILY HUONG Administration Ondansetron HCl 4 mg 11/11/18 13:20 Zofran IV Q8H PRN Nausea And Vomiting Propranolol HCl 40 mg 11/09/18 10:00 11/13/18 10:32 Inderal PO 40 mg QDAY HUONG Administration Rifaximin 550 mg 11/08/18 22:00 11/13/18 10:33 Xifaxan PO 550 mg BID HUONG Administration Simple Syrup 15 ml 11/08/18 15:47 Simple Syrup FEEDTUBE PRN PRN Hypoglycemia Simple Syrup 30 ml 11/08/18 15:47 Simple Syrup FEEDTUBE PRN PRN Hypoglycemia Sodium Bicarbonate 325 mg 11/08/18 15:47 Sodium Bicarbonate FEEDTUBE PRN PRN For Clogged Feeding Tube Sodium Chloride 5 ml 11/08/18 11:37 Nacl 0.9% 500 Ml IV DIRECT PRN ARTERIAL SHANK RANDER Sodium Chloride 10 ml 11/08/18 22:00 11/13/18 09:15 Sodium Chloride Flush Syringe 10 Ml IV 10 ml BID HUONG Administration Sodium Chloride 10 ml 11/08/18 13:32 Sodium Chloride Flush Syringe 10 Ml IV PRN PRN LINE FLUSH Spironolactone 100 mg 11/09/18 10:00 11/13/18 10:30 Aldactone PO 100 mg QDAY HUONG Administration Thiamine HCl 100 mg 11/09/18 10:00 11/13/18 09:15 Vitamin B-1 PO 100 mg QDAY HUONG Administration Nutrition/Malnutrition Assess - Dietary Evaluation Nutrition/Malnutrition Findings: Nutrition Notes Start: 11/08/18 15:38 Freq: Status: Active Protocol: Document 11/12/18 16:20 RM (Rec: 11/12/18 16:22 RM [id number]) Nutrition Notes Initial or Follow up Brief Note Current Diet Vital 1.2 at 55 ml/hr [place] Body Weight (kg) 0 Subjective/Other Information Observed Vital 1.2 infusing at goal rate. Nutrition Intervention Follow-Up By: 11/19/18 Additional Comments Follow for TF tolerance
--- NOTE | 2018-11-13 14:01 | Progress Note ---
Assessment and Plan Acute hypoxemic respiratory failure, on mechanical ventilatory support. Decompensated liver cirrhosis. Hepatic encephalopathy. Hyperammonemia. Coagulopathy as a result of the liver cirrhosis. History of alcohol abuse and dependence. Hypothyroidism. History of chronic obstructive lung disease. Coronary artery disease. Seizure disorder. Leukopenia. Hyperbilirubinemia. Hypoalbuminemia. - complete antiiinfective's per ID rec's - continue supplemental oxygen to keep O2 sats 88-90% (HFNC daytime and BIPAP qhs) - continue bronchodilators (duonebs) with pulmonary hygiene per RT - continue lactulose for hyperammonemia - continue accuchecks with glycemic control per SSI for target blood glucose 140 - 180mg/dL - Agitation management - Prevention of delirium, maintenance of sleep-wake cycle - continue AED's (keppra) for seizure disorder - watch for DT's - continue thiamine and folate supplementation - continue mobility protocols for pressure ulcer prophylaxis - GI prophylaxis is with Pepcid - VTE and Stress ulcer prophylaxis ..... re-evaluate in am & prn CODE STATUS: FULL CODE Subjective Date of service: 11/13/18 Principal diagnosis: Ac hypoxemic resp failure; Hepatic encephalopathy; Coagulopathy; Sz disord Interval history: Patient is seen today for: Acute hypoxemic respiratory failure on MVS; Decompensated liver cirrhosis; Hepatic encephalopathy; Hyperammonemia; Coagulopathy; History of alcohol abuse and dependence; Hypothyroidism; COPD; CAD; Seizure disorder. Seen and examined at bedside; 24hour events reviewed; nursing and respiratory care staff consulted; no adverse overnight events reported to me; resting peacefully in bed; remains on HFNC at 60% FiO2; using BIPAP qhs; denies N/V/F/C; no emesis or overt aspiration and more alert and appropriate Objective Vital Signs - 12hr 11/13/18 11/13/18 11/13/18 03:00 03:26 04:00 Temperature 98 F Pulse Rate 68 71 Pulse Rate [ 70 From Monitor] Respiratory 17 22 Rate Blood Pressure 116/65 113/55 O2 Sat by Pulse 93 94 Oximetry 11/13/18 11/13/18 11/13/18 05:00 06:00 07:00 Temperature Pulse Rate 68 71 66 Pulse Rate [ From Monitor] Respiratory 15 16 17 Rate Blood Pressure 115/64 114/61 121/65 O2 Sat by Pulse 95 94 93 Oximetry 11/13/18 11/13/18 11/13/18 08:00 08:54 09:00 Temperature 98.3 F Pulse Rate 67 67 Pulse Rate [ 67 From Monitor] Respiratory 15 11 L Rate Blood Pressure 125/68 118/62 O2 Sat by Pulse 90 93 92 Oximetry 11/13/18 11/13/18 11/13/18 10:00 10:30 10:32 Temperature Pulse Rate 61 64 64 Pulse Rate [ From Monitor] Respiratory 16 Rate Blood Pressure 123/64 123/64 123/64 O2 Sat by Pulse 94 Oximetry 11/13/18 11/13/18 11/13/18 11:00 12:00 12:53 Temperature 98.4 F Pulse Rate 72 67 Pulse Rate [ 64 From Monitor] Respiratory 13 17 Rate Blood Pressure 119/61 117/70 O2 Sat by Pulse 89 91 94 Oximetry Constitutional: no acute distress, other (elderly and chronically ill looking CF, normocephalic with mildly increase resp effort on MVS) Eyes: non-icteric ENT: oropharynx moist, other (extubated) Neck: supple, no lymphadenopathy, no JVD, other (no thyromegaly) Effort: mildly labored Ascultation: Bilateral: rales Percussion: Bilateral: not dull Cardiovascular: regular rate and rhythm Gastrointestinal: normoactive bowel sounds, soft, non-tender, non-distended Integumentary: rash, other (spider naevi) Extremities: no cyanosis, no edema, pulses normal, no ischemia or petechiae Neurologic: non-focal exam (grossly), pupils equal and round, CN II-XII normal, motor strength normal and Psychiatric: mood appropriate, affect normal CBC and BMP: 11/14/18 03:56 11/14/18 03:56 ABG, PT/INR, D-dimer: ABG POC ABG pH 7.443 (7.35-7.45) 11/11/18 12:23 POC ABG pCO2 34.7 (35-45) L 11/11/18 12:23 POC ABG pO2 57 (80-105) L 11/11/18 12:23 POC ABG HCO3 23.8 (22-26 mml/L) 11/11/18 12:23 POC ABG Total CO2 25 (23-27mmol/L) 11/11/18 12:23 POC ABG O2 Sat 91 07/04/19 12:23 PT/INR, D-dimer PT 18.3 Sec. (12.2-14.9) H 11/11/18 04:46 INR 1.56 (0.87-1.13) H 11/11/18 04:46 Abnormal lab findings: Abnormal Labs 11/08/18 11/08/18 11/08/18 11:47 11:47 11:47 WBC 3.4 L Hgb MCH 26 L RDW 21.6 H Lymph % (Auto) Lymph # Seg Neutrophils % Monocytes % (Manual) 13.0 H Basophils % (Manual) 3.0 H Seg Neutrophils # Lymphocytes # (Manual) 0.6 L PT 17.3 H INR 1.45 H POC ABG pH POC ABG pCO2 POC ABG pO2 Potassium Chloride BUN Creatinine 0.6 L Glucose 130 H POC Glucose Total Bilirubin 1.50 H AST Alkaline Phosphatase 140 H Ammonia Total Creatine Kinase 27 L Total Protein 6.0 L Albumin 3.0 L Urine pH 11/08/18 11/08/18 11/08/18 11:47 12:00 14:01 WBC Hgb MCH RDW Lymph % (Auto) Lymph # Seg Neutrophils % Monocytes % (Manual) Basophils % (Manual) Seg Neutrophils # Lymphocytes # (Manual) PT INR POC ABG pH 7.452 H POC ABG pCO2 32.8 L POC ABG pO2 127 H Potassium Chloride BUN Creatinine Glucose POC Glucose Total Bilirubin AST Alkaline Phosphatase Ammonia 123.0 H Total Creatine Kinase Total Protein Albumin Urine pH 8.0 H 11/08/18 11/08/18 11/09/18 14:34 15:13 04:31 WBC Hgb MCH RDW Lymph % (Auto) Lymph # Seg Neutrophils % Monocytes % (Manual) Basophils % (Manual) Seg Neutrophils # Lymphocytes # (Manual) PT INR POC ABG pH 7.468 H POC ABG pCO2 POC ABG pO2 76 L 73 L Potassium Chloride BUN Creatinine Glucose POC Glucose 112 H Total Bilirubin AST Alkaline Phosphatase Ammonia Total Creatine Kinase Total Protein Albumin Urine pH 11/09/18 11/09/18 11/09/18 05:41 05:41 05:41 WBC Hgb MCH 26 L RDW 21.5 H Lymph % (Auto) 3.2 L Lymph # 0.3 L Seg Neutrophils % 89.4 H Monocytes % (Manual) Basophils % (Manual) Seg Neutrophils # 9.6 H Lymphocytes # (Manual) PT INR POC ABG pH POC ABG pCO2 POC ABG pO2 Potassium Chloride BUN 6 L Creatinine 0.4 L Glucose POC Glucose Total Bilirubin 1.80 H AST Alkaline Phosphatase 153 H Ammonia 75.0 H Total Creatine Kinase Total Protein Albumin 3.2 L Urine pH 11/09/18 11/10/18 11/10/18 11:44 00:11 04:14 WBC Hgb MCH RDW Lymph % (Auto) Lymph # Seg Neutrophils % Monocytes % (Manual) Basophils % (Manual) Seg Neutrophils # Lymphocytes # (Manual) PT INR POC ABG pH POC ABG pCO2 POC ABG pO2 74 L Potassium Chloride BUN Creatinine Glucose POC Glucose 114 H 134 H Total Bilirubin AST Alkaline Phosphatase Ammonia Total Creatine Kinase Total Protein Albumin Urine pH 11/10/18 11/10/18 11/10/18 08:19 08:19 08:19 WBC 14.8 H Hgb MCH 26 L RDW 21.9 H Lymph % (Auto) Lymph # Seg Neutrophils % Monocytes % (Manual) Basophils % (Manual) Seg Neutrophils # Lymphocytes # (Manual) PT INR POC ABG pH POC ABG pCO2 POC ABG pO2 Potassium Chloride BUN Creatinine 0.5 L Glucose 117 H POC Glucose Total Bilirubin 1.30 H AST Alkaline Phosphatase 155 H Ammonia 62.0 H Total Creatine Kinase Total Protein 6.0 L Albumin 2.8 L Urine pH 11/11/18 11/11/18 11/11/18 00:02 04:16 04:46 WBC 12.2 H Hgb MCH 26 L RDW 22.4 H Lymph % (Auto) Lymph # Seg Neutrophils % Monocytes % (Manual) Basophils % (Manual) Seg Neutrophils # Lymphocytes # (Manual) PT INR POC ABG pH POC ABG pCO2 POC ABG pO2 58 L Potassium Chloride BUN Creatinine Glucose POC Glucose 112 H Total Bilirubin AST Alkaline Phosphatase Ammonia Total Creatine Kinase Total Protein Albumin Urine pH 11/11/18 11/11/18 11/11/18 04:46 04:46 05:50 WBC Hgb MCH RDW Lymph % (Auto) Lymph # Seg Neutrophils % Monocytes % (Manual) Basophils % (Manual) Seg Neutrophils # Lymphocytes # (Manual) PT 18.3 H INR 1.56 H POC ABG pH POC ABG pCO2 POC ABG pO2 Potassium Chloride BUN Creatinine 0.4 L Glucose 119 H POC Glucose 133 H Total Bilirubin AST Alkaline Phosphatase 152 H Ammonia Total Creatine Kinase Total Protein 6.1 L Albumin 2.8 L Urine pH 11/11/18 11/11/18 11/12/18 11:38 12:23 04:23 WBC Hgb 9.8 L MCH 26 L RDW 22.8 H Lymph % (Auto) Lymph # Seg Neutrophils % Monocytes % (Manual) Basophils % (Manual) Seg Neutrophils # Lymphocytes # (Manual) PT INR POC ABG pH POC ABG pCO2 34.7 L POC ABG pO2 57 L Potassium Chloride BUN Creatinine Glucose POC Glucose 123 H Total Bilirubin AST Alkaline Phosphatase Ammonia Total Creatine Kinase Total Protein Albumin Urine pH 11/12/18 11/12/18 11/13/18 04:23 11:24 04:03 WBC 4.1 L Hgb MCH 26 L RDW 22.7 H Lymph % (Auto) Lymph # Seg Neutrophils % Monocytes % (Manual) Basophils % (Manual) Seg Neutrophils # Lymphocytes # (Manual) PT INR POC ABG pH POC ABG pCO2 POC ABG pO2 Potassium Chloride 107.4 H BUN Creatinine 0.5 L Glucose 124 H POC Glucose 142 H Total Bilirubin AST Alkaline Phosphatase 163 H Ammonia Total Creatine Kinase Total Protein 5.9 L Albumin 2.8 L Urine pH 11/13/18 04:03 WBC Hgb MCH RDW Lymph % (Auto) Lymph # Seg Neutrophils % Monocytes % (Manual) Basophils % (Manual) Seg Neutrophils # Lymphocytes # (Manual) PT INR POC ABG pH POC ABG pCO2 POC ABG pO2 Potassium 3.2 L Chloride 109.1 H BUN Creatinine 0.4 L Glucose 109 H POC Glucose Total Bilirubin AST 59 H Alkaline Phosphatase 213 H Ammonia Total Creatine Kinase Total Protein 5.9 L Albumin 2.7 L Urine pH Chest x-ray: pending Allied health notes reviewed: nursing
--- NOTE | 2018-11-13 22:47 | XRay Report ---
ABDOMEN 1 VIEW(S) INDICATION / CLINICAL INFORMATION: check Dobhoff placement. COMPARISON: One day prior. FINDINGS: TUBES / LINES: Weighted enteric feeding tube tip projects within the distal stomach near the pylorus. BOWEL GAS PATTERN: No significant abnormality. FREE AIR / EXTRALUMINAL GAS: None seen. ADDITIONAL FINDINGS: No significant additional findings. IMPRESSION: 1. Feeding tube tip is within the distal stomach, near the pylorus. Signer Name: Edil Velazquez MD Signed: 11/13/2018 10:42 PM Workstation Name: [id number]
[2018-11-14 04:37] LABS: Hematocrit 31.9 % (30.3-42.9); Mean Corpuscular HGB Conc 31 % (30-34); Mean Corpuscular Volume 82 fl (79-97); Platelet Count 196 K/mm3 (140-440); Red Blood Count 3.91 M/mm3 (3.65-5.03)
[2018-11-14 04:43] LABS: Red Cell Distribution Width 23.4 % (13.2-15.2)
[2018-11-14] MEDS: VANCOMYCIN/NS 1 GM/250 ML 1 GM/250 ML BAG IV SCH (04:50)
[2018-11-14 04:59] LABS: Alanine Aminotransferase 33 units/L (7-56); Albumin 2.8 g/dL (3.9-5); BUN/Creatinine Ratio 37; Blood Urea Nitrogen 11 mg/dL (7-17); Calcium 8.6 mg/dL (8.4-10.2); Hemolysis Index 7
[2018-11-14] MEDS: SYNTHROID PO SCH (06:29)
[2018-11-14] MEDS ORDERED: DUONEB *Not for PRN Use IH ONE (08:24)
[2018-11-14] MEDS: DUONEB *Not for PRN Use IH SCH ×3 (08:27→21:13)
[2018-11-14] MEDS: CEPHULAC PO SCH ×3 (08:39→20:00)
--- NOTE | 2018-11-14 09:06 | Progress Note ---
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 Pt is intubated and unable to provide history. Pt history taken from EMS, and ED staff, and medical record. As per staff, the patient was in her usual state of health at bedtime which was around 2030 hrs. Pt was found to be confused with decreased level of consciousness. EMS notified and upon arrival the patient was found to be in distress. Pt transported to [facility]. Pt seen and evaluated in ED and found to have Encephalopathy, and Acute Hypoxemic Respiratory Failure and was unable to protect her airway. Pt intubated and placed on vent support, admitted to ICU. She improved, extubated 11/11/18. Acute respiratory failure was intubated, on vent, now extubated 11/11 Now on Oxygen by high flow Oxygen at 30 l/min, Fio2 50% and O2 sat 93% Pulm following Hepatic encephalopathy with hyperammonia Improving, now awake,alert,oriented Continue Lactulose Consulted GI, following Alcoholic cirrhosis of liver Alcohol use Hypertension Monitor BP COPD Seizure disorder seizure precautions Continue Keppra and Lamictal. Hypothyroidism On Levothyroxine Bipolar disorder Dementia Full code stsatus History Interval history: Extubated 11/11 shortness of breath, still on high flow Oxygen No fever Hospitalist Physical - Physical exam Narrative exam: Gen: Not in acute distress, HEENT: Normocephalic, atraumatic Neck: supple, no JVD Heart: S1 and S2 reg, no murmurs, rubs or gallop Lungs: Clear, no crackles, no wheeze Abd: soft, non tender, non distended, normal BS Ext: No edema, no clubbing, no cyanosis, Neuro: Awake,alert,oriented - Constitutional Vitals: Temp Pulse Resp BP Pulse Ox 98.2 F 66 18 115/53 96 11/13/18 23:41 11/14/18 08:36 11/14/18 08:36 11/14/18 07:00 11/14/18 08:00 General appearance: Present: no acute distress Results - Labs CBC & Chem 7: 11/15/18 05:28 11/15/18 05:28 Labs: Laboratory Last Values WBC 5.6 K/mm3 (4.5-11.0) 11/14/18 03:56 RBC 3.91 M/mm3 (3.65-5.03) 11/14/18 03:56 Hgb 10.0 gm/dl (10.1-14.3) L 11/14/18 03:56 Hct 31.9 % (30.3-42.9) 11/14/18 03:56 MCV 82 fl (79-97) 11/14/18 03:56 MCH 26 pg (28-32) L 11/14/18 03:56 MCHC 31 % (30-34) 11/14/18 03:56 RDW 23.4 % (13.2-15.2) H 11/14/18 03:56 Plt Count 196 K/mm3 (140-440) 11/14/18 03:56 Lymph % (Auto) 3.2 % (13.4-35.0) L 11/09/18 05:41 Bureau % (Auto) 6.5 % (0.0-7.3) 11/09/18 05:41 Eos % (Auto) 0.3 % (0.0-4.3) 11/09/18 05:41 Baso % (Auto) 0.6 % (0.0-1.8) 11/09/18 05:41 Lymph # 0.3 K/mm3 (1.2-5.4) L 11/09/18 05:41 Bureau # 0.7 K/mm3 (0.0-0.8) 11/09/18 05:41 Eos # 0.0 K/mm3 (0.0-0.4) 11/09/18 05:41 Baso # 0.1 K/mm3 (0.0-0.1) 11/09/18 05:41 Add Manual Diff Complete 11/08/18 11:47 Total Counted 100 11/08/18 11:47 Seg Neutrophils % 89.4 % (40.0-70.0) H 11/09/18 05:41 Seg Neuts % (Manual) 65.0 % (40.0-70.0) 11/08/18 11:47 0 % 11/08/18 11:47 17.0 % (13.4-35.0) 11/08/18 11:47 Reactive Lymphs % (Man) 0 % 11/08/18 11:47 13.0 % (0.0-7.3) H 11/08/18 11:47 2.0 % (0.0-4.3) 11/08/18 11:47 3.0 % (0.0-1.8) H 11/08/18 11:47 0 % 11/08/18 11:47 0 % 11/08/18 11:47 0 % 11/08/18 11:47 0 % 11/08/18 11:47 Nucleated RBC % Not Reportable 11/08/18 11:47 Seg Neutrophils # 9.6 K/mm3 (1.8-7.7) H 11/09/18 05:41 Seg Neutrophils # Man 2.2 K/mm3 (1.8-7.7) 11/08/18 11:47 Band Neutrophils # 0.0 K/mm3 11/08/18 11:47 0.6 K/mm3 (1.2-5.4) L 11/08/18 11:47 Abs React Lymphs (Man) 0.0 K/mm3 11/08/18 11:47 0.4 K/mm3 (0.0-0.8) 11/08/18 11:47 0.1 K/mm3 (0.0-0.4) 11/08/18 11:47 0.1 K/mm3 (0.0-0.1) 11/08/18 11:47 0.0 K/mm3 11/08/18 11:47 0.0 K/mm3 11/08/18 11:47 0.0 K/mm3 11/08/18 11:47 Blast Cells # 0.0 K/mm3 11/08/18 11:47 WBC Morphology Not Reportable 11/08/18 11:47 Hypersegmented Neuts Not Reportable 11/08/18 11:47 Hyposegmented Neuts Not Reportable 11/08/18 11:47 Hypogranular Neuts Not Reportable 11/08/18 11:47 Not Reportable 11/08/18 11:47 Not Reportable 11/08/18 11:47 Not Reportable 11/08/18 11:47 Not Reportable 11/08/18 11:47 Not Reportable 11/08/18 11:47 Not Reportable 11/08/18 11:47 Consistent w auto 11/08/18 11:47 Not Reportable 11/08/18 11:47 Plt Clumps, EDTA Not Reportable 11/08/18 11:47 Not Reportable 11/08/18 11:47 Few 11/08/18 11:47 Not Reportable 11/08/18 11:47 Plt Morphology Comment Not Reportable 11/08/18 11:47 RBC Morphology Not Reportable 11/08/18 11:47 Dimorphic RBCs Not Reportable 11/08/18 11:47 Not Reportable 11/08/18 11:47 Not Reportable 11/08/18 11:47 1+ 11/08/18 11:47 Few 11/08/18 11:47 Not Reportable 11/08/18 11:47 Not Reportable 11/08/18 11:47 Not Reportable 11/08/18 11:47 Not Reportable 11/08/18 11:47 Not Reportable 11/08/18 11:47 Not Reportable 11/08/18 11:47 Rare 11/08/18 11:47 Not Reportable 11/08/18 11:47 Not Reportable 11/08/18 11:47 Not Reportable 11/08/18 11:47 Not Reportable 11/08/18 11:47 Not Reportable 11/08/18 11:47 Not Reportable 11/08/18 11:47 Not Reportable 11/08/18 11:47 Few 11/08/18 11:47 Acanthocytes (Spur) Not Reportable 11/08/18 11:47 Rouleaux Not Reportable 11/08/18 11:47 Not Reportable 11/08/18 11:47 Not Reportable 11/08/18 11:47 Not Reportable 11/08/18 11:47 Not Reportable 11/08/18 11:47 Hem Pathologist Commnt No 11/08/18 11:47 PT 18.3 Sec. (12.2-14.9) H 11/11/18 04:46 INR 1.56 (0.87-1.13) H 11/11/18 04:46 APTT 30.4 Sec. (24.2-36.6) 11/08/18 11:47 15.4 Sec. (15.1-19.6) 11/08/18 11:47 POC ABG pH 7.443 (7.35-7.45) 11/11/18 12:23 POC ABG pCO2 34.7 (35-45) L 11/11/18 12:23 POC ABG pO2 57 (80-105) L 11/11/18 12:23 POC ABG HCO3 23.8 (22-26 mml/L) 11/11/18 12:23 POC ABG Total CO2 25 (23-27mmol/L) 11/11/18 12:23 POC ABG O2 Sat 91 11/11/18 12:23 POC ABG Base Excess 0 ((-2) - (+3)mmol/L) 11/11/18 12:23 45 % 11/11/18 12:23 Sodium 144 mmol/L (137-145) 11/14/18 03:56 Potassium 3.5 mmol/L (3.6-5.0) L 11/14/18 03:56 Chloride 107.9 mmol/L (98-107) H 11/14/18 03:56 Carbon Dioxide 25 mmol/L (22-30) 11/14/18 03:56 15 mmol/L 11/14/18 03:56 BUN 11 mg/dL (7-17) 11/14/18 03:56 0.3 mg/dL (0.7-1.2) L 11/14/18 03:56 Estimated GFR > 60 ml/min 11/14/18 03:56 37 % 11/14/18 03:56 Glucose 118 mg/dL (65-100) H 11/14/18 03:56 POC Glucose 92 (70-105) 11/13/18 20:52 Lactic Acid 1.90 mmol/L (0.7-2.0) 11/09/18 13:15 Calcium 8.6 mg/dL (8.4-10.2) 11/14/18 03:56 Magnesium 1.80 mg/dL (1.7-2.3) 11/08/18 11:47 1.10 mg/dL (0.1-1.2) 11/14/18 03:56 AST 57 units/L (5-40) H 11/14/18 03:56 ALT 33 units/L (7-56) 11/14/18 03:56 239 units/L (35-129) H 11/14/18 03:56 57.0 umol/L (25-60) 11/13/18 04:03 27 units/L (30-135) L 11/08/18 11:47 CK-MB (CK-2) < 1.0 ng/mL (0.0-4.0) 11/08/18 11:47 CK-MB (CK-2) Rel Index 3.7 (0-4) 11/08/18 11:47 < 0.010 ng/mL (0.00-0.029) 11/08/18 11:47 0.60 mg/dL (0.00-1.30) 11/09/18 05:41 5.4 g/dL (6.3-8.2) L 11/14/18 03:56 2.8 g/dL (3.9-5) L 11/14/18 03:56 1.1 % 11/14/18 03:56 TSH 2.370 mlU/mL (0.270-4.200) 11/08/18 11:47 Free T4 0.92 ng/dL (0.76-1.46) 11/08/18 11:47 Jihan (Yellow) 11/08/18 12:00 Cloudy (Clear) 11/08/18 12:00 8.0 (5.0-7.0) H 11/08/18 12:00 Ur Specific Pollock 1.017 (1.003-1.030) 11/08/18 12:00 <15 mg/dl mg/dL (Negative) 11/08/18 12:00 Neg mg/dL (Negative) 11/08/18 12:00 Neg mg/dL (Negative) 11/08/18 12:00 Neg (Negative) 11/08/18 12:00 Neg (Negative) 11/08/18 12:00 Neg (Negative) 11/08/18 12:00 < 2.0 mg/dL (<2.0) 11/08/18 12:00 Ur Leukocyte Esterase Neg (Negative) 11/08/18 12:00 4.0 /HPF (0.0-6.0) 11/08/18 12:00 2.0 /HPF (0.0-6.0) 11/08/18 12:00 U Epithel Cells (Auto) 1.0 /HPF (0-13.0) 11/08/18 12:00 3+ /HPF (Negative) 11/08/18 12:00 Few /HPF 11/08/18 12:00 Plasma/Serum Alcohol < 0.01 % (0-0.07) 11/08/18 11:47 Active Medications - Current Medications Current Medications: Generic Name Dose Route Start Last Admin Trade Name Freq PRN Reason Stop Dose Admin Albuterol 2.5 mg 11/08/18 13:32 Proventil IH Q3HRT PRN Shortness Of Breath Albuterol/Ipratropium 1 ampul 11/10/18 08:00 11/14/18 08:27 Duoneb *Not For Prn Use* IH Not Given TIDRT HUONG Lipase/Protease/Amylase 1 each 11/08/18 15:[address] 10,500 Unit FEEDTUBE PRN PRN For Clogged Feeding Tube Famotidine 20 mg 11/09/18 12:00 11/13/18 09:14 Pepcid PO 20 mg QDAY HUONG Administration Fentanyl 50 mcg 11/08/18 13:51 Sublimaze IV Q10MIN PRN ANALGESIA Fluticasone Propionate 50 mcg 11/09/18 10:00 11/13/18 09:11 Flonase NS 50 mcg QDAY HUONG Administration Folic Acid 1 mg 11/09/18 10:00 11/13/18 09:14 Folvite PO 1 mg QDAY HUONG Administration Hydrophilic Ointment 1 applic 11/08/18 11:37 Vaseline Lip Therapy TP Q2HR PRN Dry Lips Fentanyl Citrate 2,000 mcg in 100 mls @ 3.275 mls/hr 11/08/18 14:00 11/10/18 19:16 Fentanyl Drip Premix IV 0 mcg/kg/hr TITR HUONG 0 mls/hr Titration Protocol 1 MCG/KG/HR Propofol 1,000 mg in 100 mls @ 1.965 mls/hr 11/08/18 15:00 11/10/18 19:33 Diprivan 10 Mg/Ml IV 0 mcg/kg/min TITR HUONG 0 mls/hr Titration Protocol 5 MCG/KG/MIN Vancomycin HCl 1 gm in 250 mls @ 166.667 mls/hr 11/11/18 04:00 11/14/18 04:50 Vancomycin/Ns 1 Gm/250 Ml IV 166.667 mls/hr Q12H HUONG Administration Potassium Chloride 10 meq in 100 mls @ 100 mls/hr 11/14/18 09:00 Kcl 10meq/100ml IV 11/14/18 11:59 Q1H HUONG Lactulose 30 gm 11/08/18 20:00 11/14/18 08:39 Cephulac PO 30 gm TID HUONG Administration Lamotrigine 25 mg 11/08/18 22:00 11/13/18 22:00 Lamictal PO 25 mg BID HUONG Administration Levetiracetam 1,500 mg 11/08/18 22:00 11/13/18 22:00 Keppra PO 1,500 mg BID HUONG Administration Levothyroxine Sodium 75 mcg 11/09/18 06:00 11/14/18 06:29 Synthroid PO 75 mcg DAILY@0600 HUONG Administration Lorazepam 2 mg 11/08/18 14:18 Ativan IV Q1HR PRN CIWA-Ar 8-15 Multi-Ingred Cream/Lotion/Oil/Oint 1 applic 11/08/18 11:37 Artificial Tears Ophth Oint OU Q4HR PRN Dry Eye(s) Multivitamins 1 each 11/09/18 10:00 11/13/18 09:15 Theragran Tab PO 1 each DAILY HUONG Administration Ondansetron HCl 4 mg 11/11/18 13:20 Zofran IV Q8H PRN Nausea And Vomiting Propranolol HCl 40 mg 11/09/18 10:00 11/13/18 10:32 Inderal PO 40 mg QDAY HUONG Administration Rifaximin 550 mg 11/08/18 22:00 11/13/18 22:00 Xifaxan PO 550 mg BID HUONG Administration Simple Syrup 15 ml 11/08/18 15:47 Simple Syrup FEEDTUBE PRN PRN Hypoglycemia Simple Syrup 30 ml 11/08/18 15:47 Simple Syrup FEEDTUBE PRN PRN Hypoglycemia Sodium Bicarbonate 325 mg 11/08/18 15:47 Sodium Bicarbonate FEEDTUBE PRN PRN For Clogged Feeding Tube Sodium Chloride 5 ml 11/08/18 11:37 Nacl 0.9% 500 Ml IV DIRECT PRN [employer] Sodium Chloride 10 ml 11/08/18 22:00 11/13/18 22:00 Sodium Chloride Flush Syringe 10 Ml IV 10 ml BID HUONG Administration Sodium Chloride 10 ml 11/08/18 13:32 Sodium Chloride Flush Syringe 10 Ml IV PRN PRN LINE FLUSH Spironolactone 100 mg 11/09/18 10:00 11/13/18 10:30 Aldactone PO 100 mg QDAY HUONG Administration Thiamine HCl 100 mg 11/09/18 10:00 11/13/18 09:15 Vitamin B-1 PO 100 mg QDAY HUONG Administration Nutrition/Malnutrition Assess - Dietary Evaluation Nutrition/Malnutrition Findings: Nutrition Notes Start: 11/08/18 15:38 Freq: Status: Active Protocol: Document 11/12/18 16:20 RM (Rec: 11/12/18 16:22 RM [id number]) Nutrition Notes Initial or Follow up Brief Note Current Diet Vital 1.2 at 55 ml/hr Benoit Body Weight (kg) 0 Subjective/Other Information Observed Vital 1.2 infusing at goal rate. Nutrition Intervention Follow-Up By: 11/19/18 Additional Comments Follow for TF tolerance
[2018-11-14] MEDS: KCL 10MEQ/100ML 10 MEQ/100 ML BAG IV SCH ×3 (09:25→13:18)
--- NOTE | 2018-11-14 10:42 | Progress Note ---
Assessment and Plan Cultures: 11/08/2018 blood cultures: no growth 11/08/2018 urine culture: 10K-100K Enterococcus species - VRE 11/08/2018 tracheal aspirate: Usual respiratory faustina with moderate growth of MRSA A/P: 62-year-old group home resident with end-stage liver disease attributed to alcoholic cirrhosis, esophageal varices, hypertension, COPD, dementia, seizure disorder, history of CVA was brought to the emergency room on 11/08/2018 with altered mental status. 1) Leucocytosis: Resolved. etiology unclear. UA not consistent with UTI. CXR doesn't show a pneumonia, except a 3 cm retrocardiac opacity, that was noted on CTA chest from 09/2018 that showed " Prominent soft tissue density lesion near the left infrahilar region from the GE junction to the left pulmonary vein may represent varices with collateralized return. " No clinical concern for SBP. 2) Enterococcus VRE in urine culture: no pyuria. Unlikely UTI. colonization, no treatment indicated. 3) MRSA in tracheal aspirate: no pneumonia on CXR. Likely colonization. On abx trial as of now. Given response, treat for possible tracheobronchitis for 5 total days. 4) ESLD: GI following. On lactulose, rifaximin. RUQ US showed cirrhotic liver. 5) Acute encephalopathy: improving. Recs: - continue IV Vancomycin with PK consult - Last dose today - contact isolation for VRE and MRSA [facility] M: [phone] O:[phone] Subjective Date of service: 11/14/18 Principal diagnosis: Hepatic encephalopathy Interval history: Patient seen and examined. Awake. Alert. Reports no acute distress. On Hi FLow 02 . Objective - Exam Narrative Exam: Constitutional: awake, alert. No acute distress. Head, Ears, Nose: Normocephalic, atraumatic. External ears, nose normal Eyes: Conjunctivae/corneas clear. No icterus. No ptosis. Neck: Supple, no meningeal signs Cardiovascular: S1, S2 normal. Respiratory: Good air entry, clear to auscultation bilaterally. High flow O2 @ 60% GI: Soft, non-tender; bowel sounds normal. No peritoneal signs. + NG tube Musculoskeletal: No pedal edema, no cyanosis. Skin: No rash or abscess Hem/Lymphatic: No palpable cervical or supraclavicular nodes. No lymphangitis Psych: no agitation Neurological: awake, opens eyes, follows commands. - Constitutional Vitals: Vital Signs Temp Pulse Resp BP Pulse Ox 97.7 F 71 12 97/50 95 11/14/18 08:00 11/14/18 09:01 11/14/18 09:01 11/14/18 09:01 11/14/18 09:01 Temperature -Last 24 Hours Temperature 97.7 F Temperature 98.2 F Temperature 98.7 F Temperature 98.3 F Temperature 97.9 F Temperature 98.4 F - Labs CBC & Chem 7: 11/14/18 03:56 11/14/18 03:56 Labs: Abnormal lab results 11/14/18 11/14/18 Range/Units 03:56 03:56 Hgb 10.0 L (10.1-14.3) gm/dl MCH 26 L (28-32) pg RDW 23.4 H (13.2-15.2) % Potassium 3.5 L (3.6-5.0) mmol/L Chloride 107.9 H (98-107) mmol/L Creatinine 0.3 L (0.7-1.2) mg/dL Glucose 118 H (65-100) mg/dL AST 57 H (5-40) units/L Alkaline Phosphatase 239 H (35-129) units/L Total Protein 5.4 L (6.3-8.2) g/dL Albumin 2.8 L (3.9-5) g/dL
[2018-11-14] MEDS: ALDACTONE PO SCH (10:47)
[2018-11-14] MEDS: FLONASE NS SCH (10:48)
[2018-11-14] MEDS: INDERAL PO SCH (10:49)
[2018-11-14] MEDS: FOLVITE PO SCH (10:49)
[2018-11-14] MEDS: LaMICtal PO SCH ×2 (10:50→21:39)
[2018-11-14] MEDS: KEPPRA PO SCH ×2 (10:50→21:38)
[2018-11-14] MEDS: PEPCID PO SCH (10:50)
[2018-11-14] MEDS: THERAGRAN Tab PO SCH (10:51)
[2018-11-14] MEDS: XIFAXAN PO SCH ×2 (10:51→21:39)
[2018-11-14] MEDS: SODIUM CHLORIDE FLUSH SYRINGE 10 ML IV SCH ×3 (10:51→22:16)
[2018-11-14] MEDS: VITAMIN B-1 PO SCH (10:51)
--- NOTE | 2018-11-14 14:36 | Gastroenterology Progress Note ---
Assessment and Plan 1. Hepatic encephalopathy - slowly seems to be improving; cont lactulose and xifaxin; good output from [facility] 2. Decompensated cirrhosis 3. Ascites 4. Respiratory distress - improving Subjective Date of service: 11/14/18 Principal diagnosis: Hepatic encephalopathy Interval history: pt awake at the time of exam; answering more questions but still confused (unclear baseline), but overall improved from yesterday. passed swallow eval Objective - Constitutional Vitals: Temp Pulse Resp BP Pulse Ox 97.6 F 67 17 110/54 94 11/14/18 12:00 11/14/18 14:00 11/14/18 14:00 11/14/18 14:00 11/14/18 14:00 General appearance: no acute distress, other (awake/confused) - Respiratory Respiratory effort: normal Respiratory: bilateral: CTA - Cardiovascular Rhythm: regular Heart Sounds: Present: S1 & S2 - Gastrointestinal General gastrointestinal: Present: soft, non-tender, non-distended - Labs CBC & Chem 7: 11/14/18 03:56 11/14/18 03:56 Labs: Laboratory Results - last 24 hr 11/13/18 11/14/18 11/14/18 20:52 03:56 03:56 WBC 5.6 RBC 3.91 Hgb 10.0 L Hct 31.9 MCV 82 MCH 26 L MCHC 31 RDW 23.4 H Plt Count 196 Sodium 144 Potassium 3.5 L Chloride 107.9 H Carbon Dioxide 25 Anion Gap 15 BUN 11 Creatinine 0.3 L Estimated GFR > 60 BUN/Creatinine Ratio 37 Glucose 118 H POC Glucose 92 Calcium 8.6 Phosphorus Magnesium Total Bilirubin 1.10 AST 57 H ALT 33 Alkaline Phosphatase 239 H Total Protein 5.4 L Albumin 2.8 L Albumin/Globulin Ratio 1.1 11/14/18 08:51 WBC RBC Hgb Hct MCV MCH MCHC RDW Plt Count Sodium Potassium Chloride Carbon Dioxide Anion Gap BUN Creatinine Estimated GFR BUN/Creatinine Ratio Glucose POC Glucose Calcium Phosphorus 3.50 Magnesium 1.70 Total Bilirubin AST ALT Alkaline Phosphatase Total Protein Albumin Albumin/Globulin Ratio
--- NOTE | 2018-11-14 15:01 | Progress Note ---
Assessment and Plan Acute hypoxemic respiratory failure, on mechanical ventilatory support. Decompensated liver cirrhosis. Hepatic encephalopathy. Hyperammonemia. Coagulopathy as a result of the liver cirrhosis. History of alcohol abuse and dependence. Hypothyroidism. History of chronic obstructive lung disease. Coronary artery disease. Seizure disorder. Leukopenia. Hyperbilirubinemia. Hypoalbuminemia. - complete antiiinfective's per ID rec's - continue supplemental oxygen to keep O2 sats 88-90% (HFNC daytime and BIPAP qhs) - continue bronchodilators (duonebs) with pulmonary hygiene per RT - continue lactulose for hyperammonemia - continue accuchecks with glycemic control per SSI for target blood glucose 140 - 180mg/dL - Agitation management - Prevention of delirium, maintenance of sleep-wake cycle - continue AED's (keppra) for seizure disorder - watch for DT's - continue thiamine and folate supplementation - continue mobility protocols for pressure ulcer prophylaxis - GI prophylaxis is with Pepcid - VTE and Stress ulcer prophylaxis ... LTAC evaluation is appropriate ..... re-evaluate in am & prn CODE STATUS: FULL CODE Subjective Date of service: 11/14/18 Principal diagnosis: Ac hypoxemic resp failure; Hepatic encephalopathy; Coagulopathy; Sz disord Interval history: Patient is seen today for: Acute hypoxemic respiratory failure on MVS; Decompensated liver cirrhosis; Hepatic encephalopathy; Hyperammonemia; Coagulopathy; History of alcohol abuse and dependence; Hypothyroidism; COPD; CAD; Seizure disorder. Seen and examined at bedside; 24hour events reviewed; nursing and respiratory care staff consulted; no adverse overnight events reported to me; resting peacefully in bed; remains on HFNC; denies acute chest pains Objective Vital Signs - 12hr 11/14/18 11/14/18 11/14/18 03:39 04:00 05:00 Temperature Pulse Rate 64 63 Pulse Rate [ Anterior Bilateral Throughout] Pulse Rate [ 62 From Monitor] Respiratory 19 16 18 Rate Respiratory Rate [Anterior Bilateral Throughout] Blood Pressure 113/62 107/60 O2 Sat by Pulse 94 95 97 Oximetry 11/14/18 11/14/18 11/14/18 06:01 07:00 08:00 Temperature 97.7 F Pulse Rate 69 65 65 Pulse Rate [ Anterior Bilateral Throughout] Pulse Rate [ 68 From Monitor] Respiratory 22 18 12 Rate Respiratory Rate [Anterior Bilateral Throughout] Blood Pressure 108/61 115/53 115/63 O2 Sat by Pulse 95 98 98 Oximetry 11/14/18 11/14/18 11/14/18 08:25 08:36 09:01 Temperature Pulse Rate 71 Pulse Rate [ 67 66 Anterior Bilateral Throughout] Pulse Rate [ From Monitor] Respiratory 12 Rate Respiratory 18 18 Rate [Anterior Bilateral Throughout] Blood Pressure 97/50 O2 Sat by Pulse 95 Oximetry 11/14/18 11/14/18 11/14/18 10:00 10:47 10:49 Temperature Pulse Rate 68 68 69 Pulse Rate [ Anterior Bilateral Throughout] Pulse Rate [ From Monitor] Respiratory 14 Rate Respiratory Rate [Anterior Bilateral Throughout] Blood Pressure 117/59 117/59 117/59 O2 Sat by Pulse 89 Oximetry 11/14/18 11/14/18 11/14/18 11:00 12:00 12:01 Temperature 97.6 F Pulse Rate 67 69 Pulse Rate [ Anterior Bilateral Throughout] Pulse Rate [ 66 From Monitor] Respiratory 13 17 13 Rate Respiratory Rate [Anterior Bilateral Throughout] Blood Pressure 116/60 119/57 O2 Sat by Pulse 95 95 95 Oximetry 11/14/18 11/14/18 11/14/18 13:00 14:00 14:30 Temperature Pulse Rate 63 67 Pulse Rate [ 67 Anterior Bilateral Throughout] Pulse Rate [ From Monitor] Respiratory 15 17 Rate Respiratory 18 Rate [Anterior Bilateral Throughout] Blood Pressure 112/53 110/54 O2 Sat by Pulse 97 96 Oximetry 11/14/18 14:44 Temperature Pulse Rate Pulse Rate [ 66 Anterior Bilateral Throughout] Pulse Rate [ From Monitor] Respiratory Rate Respiratory 18 Rate [Anterior Bilateral Throughout] Blood Pressure O2 Sat by Pulse Oximetry Constitutional: no acute distress, other (elderly and chronically ill looking CF , normocephalic with mildly increase resp effort on MVS) Eyes: non-icteric ENT: oropharynx moist, other (extubated) Neck: supple, no lymphadenopathy, no JVD, other (no thyromegaly) Effort: mildly labored Ascultation: Bilateral: rales, rhonchi Percussion: Bilateral: not dull Cardiovascular: regular rate and rhythm Gastrointestinal: normoactive bowel sounds, soft, non-tender, non-distended Integumentary: rash, other (spider naevi) Extremities: no cyanosis, no edema, pulses normal, no ischemia or petechiae Neurologic: non-focal exam (grossly), pupils equal and round, CN II-XII normal, motor strength normal and Psychiatric: mood appropriate, affect normal CBC and BMP: 11/16/18 04:59 11/16/18 04:59 ABG, PT/INR, D-dimer: ABG POC ABG pH 7.443 (7.35-7.45) 11/11/18 12:23 POC ABG pCO2 34.7 (35-45) L 11/11/18 12:23 POC ABG pO2 57 (80-105) L 11/11/18 12:23 POC ABG HCO3 23.8 (22-26 mml/L) 11/11/18 12:23 POC ABG Total CO2 25 (23-27mmol/L) 11/11/18 12:23 POC ABG O2 Sat 91 11/11/18 12:23 PT/INR, D-dimer PT 18.3 Sec. (12.2-14.9) H 11/11/18 04:46 INR 1.56 (0.87-1.13) H 11/11/18 04:46 Abnormal lab findings: Abnormal Labs 11/08/18 11/08/18 11/08/18 11:47 11:47 11:47 WBC 3.4 L Hgb MCH 26 L RDW 21.6 H Lymph % (Auto) Lymph # Seg Neutrophils % Monocytes % (Manual) 13.0 H Basophils % (Manual) 3.0 H Seg Neutrophils # Lymphocytes # (Manual) 0.6 L PT 17.3 H INR 1.45 H POC ABG pH POC ABG pCO2 POC ABG pO2 Potassium Chloride BUN Creatinine 0.6 L Glucose 130 H POC Glucose Total Bilirubin 1.50 H AST Alkaline Phosphatase 140 H Ammonia Total Creatine Kinase 27 L Total Protein 6.0 L Albumin 3.0 L Urine pH 11/08/18 11/08/18 11/08/18 11:47 12:00 14:01 WBC Hgb MCH RDW Lymph % (Auto) Lymph # Seg Neutrophils % Monocytes % (Manual) Basophils % (Manual) Seg Neutrophils # Lymphocytes # (Manual) PT INR POC ABG pH 7.452 H POC ABG pCO2 32.8 L POC ABG pO2 127 H Potassium Chloride BUN Creatinine Glucose POC Glucose Total Bilirubin AST Alkaline Phosphatase Ammonia 123.0 H Total Creatine Kinase Total Protein Albumin Urine pH 8.0 H 11/08/18 11/08/18 11/09/18 14:34 15:13 04:31 WBC Hgb MCH RDW Lymph % (Auto) Lymph # Seg Neutrophils % Monocytes % (Manual) Basophils % (Manual) Seg Neutrophils # Lymphocytes # (Manual) PT INR POC ABG pH 7.468 H POC ABG pCO2 POC ABG pO2 76 L 73 L Potassium Chloride BUN Creatinine Glucose POC Glucose 112 H Total Bilirubin AST Alkaline Phosphatase Ammonia Total Creatine Kinase Total Protein Albumin Urine pH 11/09/18 11/09/18 11/09/18 05:41 05:41 05:41 WBC Hgb MCH 26 L RDW 21.5 H Lymph % (Auto) 3.2 L Lymph # 0.3 L Seg Neutrophils % 89.4 H Monocytes % (Manual) Basophils % (Manual) Seg Neutrophils # 9.6 H Lymphocytes # (Manual) PT INR POC ABG pH POC ABG pCO2 POC ABG pO2 Potassium Chloride BUN 6 L Creatinine 0.4 L Glucose POC Glucose Total Bilirubin 1.80 H AST Alkaline Phosphatase 153 H Ammonia 75.0 H Total Creatine Kinase Total Protein Albumin 3.2 L Urine pH 11/09/18 11/10/18 11/10/18 11:44 00:11 04:14 WBC Hgb MCH RDW Lymph % (Auto) Lymph # Seg Neutrophils % Monocytes % (Manual) Basophils % (Manual) Seg Neutrophils # Lymphocytes # (Manual) PT INR POC ABG pH POC ABG pCO2 POC ABG pO2 74 L Potassium Chloride BUN Creatinine Glucose POC Glucose 114 H 134 H Total Bilirubin AST Alkaline Phosphatase Ammonia Total Creatine Kinase Total Protein Albumin Urine pH 11/10/18 11/10/18 11/10/18 08:19 08:19 08:19 WBC 14.8 H Hgb MCH 26 L RDW 21.9 H Lymph % (Auto) Lymph # Seg Neutrophils % Monocytes % (Manual) Basophils % (Manual) Seg Neutrophils # Lymphocytes # (Manual) PT INR POC ABG pH POC ABG pCO2 POC ABG pO2 Potassium Chloride BUN Creatinine 0.5 L Glucose 117 H POC Glucose Total Bilirubin 1.30 H AST Alkaline Phosphatase 155 H Ammonia 62.0 H Total Creatine Kinase Total Protein 6.0 L Albumin 2.8 L Urine pH 11/11/18 11/11/18 11/11/18 00:02 04:16 04:46 WBC 12.2 H Hgb MCH 26 L RDW 22.4 H Lymph % (Auto) Lymph # Seg Neutrophils % Monocytes % (Manual) Basophils % (Manual) Seg Neutrophils # Lymphocytes # (Manual) PT INR POC ABG pH POC ABG pCO2 POC ABG pO2 58 L Potassium Chloride BUN Creatinine Glucose POC Glucose 112 H Total Bilirubin AST Alkaline Phosphatase Ammonia Total Creatine Kinase Total Protein Albumin Urine pH 11/11/18 11/11/18 11/11/18 04:46 04:46 05:50 WBC Hgb MCH RDW Lymph % (Auto) Lymph # Seg Neutrophils % Monocytes % (Manual) Basophils % (Manual) Seg Neutrophils # Lymphocytes # (Manual) PT 18.3 H INR 1.56 H POC ABG pH POC ABG pCO2 POC ABG pO2 Potassium Chloride BUN Creatinine 0.4 L Glucose 119 H POC Glucose 133 H Total Bilirubin AST Alkaline Phosphatase 152 H Ammonia Total Creatine Kinase Total Protein 6.1 L Albumin 2.8 L Urine pH 11/11/18 11/11/18 11/12/18 11:38 12:23 04:23 WBC Hgb 9.8 L MCH 26 L RDW 22.8 H Lymph % (Auto) Lymph # Seg Neutrophils % Monocytes % (Manual) Basophils % (Manual) Seg Neutrophils # Lymphocytes # (Manual) PT INR POC ABG pH POC ABG pCO2 34.7 L POC ABG pO2 57 L Potassium Chloride BUN Creatinine Glucose POC Glucose 123 H Total Bilirubin AST Alkaline Phosphatase Ammonia Total Creatine Kinase Total Protein Albumin Urine pH 11/12/18 11/12/18 11/13/18 04:23 11:24 04:03 WBC 4.1 L Hgb MCH 26 L RDW 22.7 H Lymph % (Auto) Lymph # Seg Neutrophils % Monocytes % (Manual) Basophils % (Manual) Seg Neutrophils # Lymphocytes # (Manual) PT INR POC ABG pH POC ABG pCO2 POC ABG pO2 Potassium Chloride 107.4 H BUN Creatinine 0.5 L Glucose 124 H POC Glucose 142 H Total Bilirubin AST Alkaline Phosphatase 163 H Ammonia Total Creatine Kinase Total Protein 5.9 L Albumin 2.8 L Urine pH 11/13/18 11/14/18 11/14/18 04:03 03:56 03:56 WBC Hgb 10.0 L MCH 26 L RDW 23.4 H Lymph % (Auto) Lymph # Seg Neutrophils % Monocytes % (Manual) Basophils % (Manual) Seg Neutrophils # Lymphocytes # (Manual) PT INR POC ABG pH POC ABG pCO2 POC ABG pO2 Potassium 3.2 L 3.5 L Chloride 109.1 H 107.9 H BUN Creatinine 0.4 L 0.3 L Glucose 109 H 118 H POC Glucose Total Bilirubin AST 59 H 57 H Alkaline Phosphatase 213 H 239 H Ammonia Total Creatine Kinase Total Protein 5.9 L 5.4 L Albumin 2.7 L 2.8 L Urine pH Allied health notes reviewed: nursing
[2018-11-14] MEDS: ATIVAN IV PRN (22:15)
[2018-11-15] MEDS: VANCOMYCIN/NS 1 GM/250 ML 1 GM/250 ML BAG IV SCH ×3 (04:44→08:31)
[2018-11-15 05:53] LABS: Hematocrit 31.6 % (30.3-42.9); Hemoglobin 9.8 gm/dl (10.1-14.3); Mean Corpuscular HGB Conc 31 % (30-34); Mean Corpuscular Volume 83 fl (79-97); Platelet Count 200 K/mm3 (140-440); Red Blood Count 3.82 M/mm3 (3.65-5.03)
[2018-11-15 05:55] LABS: Red Cell Distribution Width 23.3 % (13.2-15.2)
[2018-11-15 06:17] LABS: BUN/Creatinine Ratio 37; Blood Urea Nitrogen 11 mg/dL (7-17); Calcium 8.6 mg/dL (8.4-10.2); Hemolysis Index 4
[2018-11-15] MEDS: SYNTHROID PO SCH (06:50)
[2018-11-15] MEDS: DUONEB *Not for PRN Use IH SCH ×3 (08:59→20:13)
--- NOTE | 2018-11-15 09:43 | Progress Note ---
Assessment and Plan Cultures: 11/08/2018 blood cultures: no growth 11/08/2018 urine culture: 10K-100K Enterococcus species - VRE 11/08/2018 tracheal aspirate: Usual respiratory faustina with moderate growth of MRSA A/P: 62-year-old care home resident with end-stage liver disease attributed to alcoholic cirrhosis, esophageal varices, hypertension, COPD, dementia, seizure disorder, history of CVA was brought to the emergency room on 11/08/2018 with altered mental status. 1) Leucocytosis: Resolved. etiology unclear. UA not consistent with UTI. CXR doesn't show a pneumonia, except a 3 cm retrocardiac opacity, that was noted on CTA chest from 09/2018 that showed " Prominent soft tissue density lesion near the left infrahilar region from the GE junction to the left pulmonary vein may represent varices with collateralized return. " No clinical concern for SBP. 2) Enterococcus VRE in urine culture: no pyuria. Unlikely UTI. colonization, no treatment indicated. 3) MRSA in tracheal aspirate: no pneumonia on CXR. Likely colonization. On abx trial as of now. Given response, treat for possible tracheobronchitis for 5 total days. 4) ESLD: GI following. On lactulose, rifaximin. RUQ US showed cirrhotic liver. 5) Acute encephalopathy: improving. Recs: -discontinue Vancomycin -contact isolation for VRE and MRSA [facility] M: [id number] O:[phone] Subjective Date of service: 11/15/18 Principal diagnosis: Hepatic encephalopathy Interval history: Patient seen and examined. Awake. Alert. Reports no acute distress. On Hi FLow 02 . Objective - Exam Narrative Exam: Constitutional: awake, alert. No acute distress. Head, Ears, Nose: Normocephalic, atraumatic. External ears, nose normal Eyes: Conjunctivae/corneas clear. No icterus. No ptosis. Neck: Supple, no meningeal signs Cardiovascular: S1, S2 normal. Respiratory: Good air entry, clear to auscultation bilaterally. High flow O2 @ 50 % GI: Soft, non-tender; bowel sounds normal. No peritoneal signs. + NG tube Musculoskeletal: No pedal edema, no cyanosis. Skin: No rash or abscess Hem/Lymphatic: No palpable cervical or supraclavicular nodes. No lymphangitis Psych: no agitation Neurological: awake, opens eyes, follows commands. - Constitutional Vitals: Vital Signs Temp Pulse Resp BP Pulse Ox 96.0 F L 58 L 20 97/49 93 11/15/18 04:00 11/15/18 09:12 11/15/18 09:12 11/15/18 08:00 11/15/18 08:00 Temperature -Last 24 Hours Temperature 96.0 F Temperature 96.6 F Temperature 97.6 F Temperature 97.6 F Temperature 98.0 F Temperature 97.7 F Temperature 97.6 F - Labs CBC & Chem 7: 11/15/18 05:28 11/15/18 05:28 Labs: Abnormal lab results 11/15/18 11/15/18 Range/Units 05:28 05:28 Hgb 9.8 L (10.1-14.3) gm/dl MCH 26 L (28-32) pg RDW 23.3 H (13.2-15.2) % Chloride 111.3 H (98-107) mmol/L Creatinine 0.3 L (0.7-1.2) mg/dL Glucose 110 H (65-100) mg/dL
[2018-11-15] MEDS: KEPPRA PO SCH ×2 (10:06→23:07)
[2018-11-15] MEDS: CEPHULAC PO SCH ×3 (10:06→23:03)
[2018-11-15] MEDS: THERAGRAN Tab PO SCH (10:07)
[2018-11-15] MEDS: INDERAL PO SCH (10:07)
[2018-11-15] MEDS: XIFAXAN PO SCH ×2 (10:07→23:03)
[2018-11-15] MEDS: FOLVITE PO SCH (10:07)
[2018-11-15] MEDS: PEPCID PO SCH ×2 (10:07→23:02)
[2018-11-15] MEDS: LaMICtal PO SCH ×2 (10:08→23:02)
[2018-11-15] MEDS: FLONASE NS SCH (10:08)
[2018-11-15] MEDS: ALDACTONE PO SCH (10:08)
--- NOTE | 2018-11-15 11:45 | Gastroenterology Progress Note ---
<ЕЛЕНА SANTA - Last Filed: 11/15/18 12:40> Assessment and Plan 1.hepatic encephalopathy 2.Decompensated cirrhosis -WBC WNL -H/H 9.8/31.6 -LFTs-stable -ammonia 44 -abdominal U/S 09/22/2018 showed advanced cirrhosis and gallstones but no mass or ascites -repeat U/S 11/09/18-no ascites -Last EGD 06/23/17 that showed 0-1+ distal esophageal varices and mild portal hypertension gastropathy -etiology-patient has a hx of alcoholic cirrhosis 2/2 former ETOH abuse with varices and HE -clinically, patient's mental status has returned to baseline. Denies abd pain, N/V, or signs of bleeding. -diet as tolerated -continue PPI, diuretics, xifaxan, propranalol, and lactulose (titrate to goal of BMs x 3/day) -continue to trend labs and supportive care -further management as outpatient -no further recommendations per GI standpoint at this time -will sign off, please call if needed Subjective Date of service: 11/15/18 Principal diagnosis: Hepatic encephalopathy Interval history: Patient remains in ICU on HFO2. Sitting up in bed this am, alert and oriented to person. No acute distress. Denies abd pain, N/V, or signs of bleeding. Objective - Constitutional Vitals: Temp Pulse Resp BP Pulse Ox 96.0 F L 65 19 95/54 89 11/15/18 04:00 11/15/18 10:08 11/15/18 10:00 11/15/18 10:08 11/15/18 10:00 General appearance: no acute distress - Respiratory Respiratory: bilateral: diminished - Cardiovascular Rhythm: regular - Gastrointestinal General gastrointestinal: Present: soft, non-tender, non-distended, normal bowel sounds - Labs CBC & Chem 7: 11/15/18 05:28 11/15/18 05:28 Labs: Laboratory Results - last 24 hr 11/15/18 11/15/18 11/15/18 05:28 05:28 05:28 WBC 4.7 RBC 3.82 Hgb 9.8 L Hct 31.6 MCV 83 MCH 26 L MCHC 31 RDW 23.3 H Plt Count 200 Sodium 143 Potassium 3.6 Chloride 111.3 H Carbon Dioxide 24 Anion Gap 11 BUN 11 Creatinine 0.3 L Estimated GFR > 60 BUN/Creatinine Ratio 37 Glucose 110 H POC Glucose Calcium 8.6 Ammonia Vancomycin Trough 10.6 11/15/18 11/15/18 08:21 11:34 WBC RBC Hgb Hct MCV MCH MCHC RDW Plt Count Sodium Potassium Chloride Carbon Dioxide Anion Gap BUN Creatinine Estimated GFR BUN/Creatinine Ratio Glucose POC Glucose 122 H Calcium Ammonia 44.0 Vancomycin Trough <ILENE MCCALL - Last Filed: 11/15/18 16:22> Assessment and Plan Patient seen and examined. Agree with note above. Objective - Constitutional Vitals: Temp Pulse Resp BP Pulse Ox 97.2 F L 65 19 95/54 89 11/15/18 12:00 11/15/18 10:08 11/15/18 10:00 11/15/18 10:08 11/15/18 10:00 - Labs CBC & Chem 7: 11/15/18 05:28 11/15/18 05:28 Labs: Laboratory Results - last 24 hr 11/15/18 11/15/18 11/15/18 05:28 05:28 05:28 WBC 4.7 RBC 3.82 Hgb 9.8 L Hct 31.6 MCV 83 MCH 26 L MCHC 31 RDW 23.3 H Plt Count 200 Sodium 143 Potassium 3.6 Chloride 111.3 H Carbon Dioxide 24 Anion Gap 11 BUN 11 Creatinine 0.3 L Estimated GFR > 60 BUN/Creatinine Ratio 37 Glucose 110 H POC Glucose Calcium 8.6 Ammonia Vancomycin Trough 10.6 11/15/18 11/15/18 08:21 11:34 WBC RBC Hgb Hct MCV MCH MCHC RDW Plt Count Sodium Potassium Chloride Carbon Dioxide Anion Gap BUN Creatinine Estimated GFR BUN/Creatinine Ratio Glucose POC Glucose 122 H Calcium Ammonia 44.0 Vancomycin Trough
--- NOTE | 2018-11-15 11:54 | Progress Note ---
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 As per staff, the patient was in her usual state of health at bedtime which was around 2030 hrs. Pt was found to be confused with decreased level of consciousness. EMS notified and upon arrival the patient was found to be in distress. Pt transported to [facility]. Pt seen and evaluated in ED and found to have Encephalopathy, and Acute Hypoxemic Respiratory Failure and was unable to protect her airway. Pt intubated and placed on vent support, admitted to ICU. She improved, extubated 11/11/18. ammonia improved, normalized on Lactulose. She is now awake,alert. She is however on high amount of Oxygen, on high flow nasal canula. patient also has MRSA sputum and VRE Urine. Acute respiratory failure was intubated, on vent, now extubated 11/11 Now on Oxygen by high flow Oxygen Pulm following Hepatic encephalopathy with hyperammonia Improving, now awake,alert,oriented Continue Lactulose Consulted GI, following Alcoholic cirrhosis of liver GI following MRSA sputum Contact isolation VRE Urine, likely colonization Alcohol use Hypertension Monitor BP COPD Seizure disorder seizure precautions Continue Keppra and Lamictal. Hypothyroidism On Levothyroxine Bipolar disorder Dementia Full code stsatus History Interval history: Extubated 11/11 shortness of breath, still on high flow Oxygen No fever Hospitalist Physical - Physical exam Narrative exam: Gen: Not in acute distress, lying in bed HEENT: Normocephalic, atraumatic Neck: supple, no JVD Heart: S1 and S2 reg, no murmurs, rubs or gallop Lungs: Clear, no crackles, no wheeze Abd: soft, non tender, non distended, normal BS Ext: No edema, no clubbing, no cyanosis, Neuro: Awake,alert,oriented, moves all ext - Constitutional Vitals: Temp Pulse Resp BP Pulse Ox 96.0 F L 65 19 95/54 89 11/15/18 04:00 11/15/18 10:11/15/18 10:00 11/15/18 10:11/15/18 10:00 General appearance: Present: no acute distress Results - Labs CBC & Chem 7: 11/15/18 05:28 11/15/18 05:28 Labs: Laboratory Last Values WBC 4.7 K/mm3 (4.5-11.0) 11/15/18 05:28 RBC 3.82 M/mm3 (3.65-5.03) 11/15/18 05:28 Hgb 9.8 gm/dl (10.1-14.3) L 11/15/18 05:28 Hct 31.6 % (30.3-42.9) 11/15/18 05:28 MCV 83 fl (79-97) 11/15/18 05:28 MCH 26 pg (28-32) L 11/15/18 05:28 MCHC 31 % (30-34) 11/15/18 05:28 RDW 23.3 % (13.2-15.2) H 11/15/18 05:28 Plt Count 200 K/mm3 (140-440) 11/15/18 05:28 Lymph % (Auto) 3.2 % (13.4-35.0) L 11/09/18 05:41 [place] % (Auto) 6.5 % (0.0-7.3) 11/09/18 05:41 Eos % (Auto) 0.3 % (0.0-4.3) 11/09/18 05:41 Baso % (Auto) 0.6 % (0.0-1.8) 11/09/18 05:41 Lymph # 0.3 K/mm3 (1.2-5.4) L 11/09/18 05:41 [place] # 0.7 K/mm3 (0.0-0.8) 11/09/18 05:41 Eos # 0.0 K/mm3 (0.0-0.4) 11/09/18 05:41 Baso # 0.1 K/mm3 (0.0-0.1) 11/09/18 05:41 Add Manual Diff Complete 11/08/18 11:47 Total Counted 100 11/08/18 11:47 Seg Neutrophils % 89.4 % (40.0-70.0) H 11/09/18 05:41 Seg Neuts % (Manual) 65.0 % (40.0-70.0) 11/08/18 11:47 0 % 11/08/18 11:47 17.0 % (13.4-35.0) 11/08/18 11:47 Reactive Lymphs % (Man) 0 % 11/08/18 11:47 13.0 % (0.0-7.3) H 11/08/18 11:47 2.0 % (0.0-4.3) 11/08/18 11:47 3.0 % (0.0-1.8) H 11/08/18 11:47 0 % 11/08/18 11:47 0 % 11/08/18 11:47 0 % 11/08/18 11:47 0 % 11/08/18 11:47 Nucleated RBC % Not Reportable 11/08/18 11:47 Seg Neutrophils # 9.6 K/mm3 (1.8-7.7) H 11/09/18 05:41 Seg Neutrophils # Man 2.2 K/mm3 (1.8-7.7) 11/08/18 11:47 Band Neutrophils # 0.0 K/mm3 11/08/18 11:47 0.6 K/mm3 (1.2-5.4) L 11/08/18 11:47 Abs React Lymphs (Man) 0.0 K/mm3 11/08/18 11:47 0.4 K/mm3 (0.0-0.8) 11/08/18 11:47 0.1 K/mm3 (0.0-0.4) 11/08/18 11:47 0.1 K/mm3 (0.0-0.1) 11/08/18 11:47 0.0 K/mm3 11/08/18 11:47 0.0 K/mm3 11/08/18 11:47 0.0 K/mm3 11/08/18 11:47 Blast Cells # 0.0 K/mm3 11/08/18 11:47 WBC Morphology Not Reportable 11/08/18 11:47 Hypersegmented Neuts Not Reportable 11/08/18 11:47 Hyposegmented Neuts Not Reportable 11/08/18 11:47 Hypogranular Neuts Not Reportable 11/08/18 11:47 Not Reportable 11/08/18 11:47 Not Reportable 11/08/18 11:47 Not Reportable 11/08/18 11:47 Not Reportable 11/08/18 11:47 Not Reportable 11/08/18 11:47 Not Reportable 11/08/18 11:47 Consistent w auto 11/08/18 11:47 Not Reportable 11/08/18 11:47 Plt Clumps, EDTA Not Reportable 11/08/18 11:47 Not Reportable 11/08/18 11:47 Few 11/08/18 11:47 Not Reportable 11/08/18 11:47 Plt Morphology Comment Not Reportable 11/08/18 11:47 RBC Morphology Not Reportable 11/08/18 11:47 Dimorphic RBCs Not Reportable 11/08/18 11:47 Not Reportable 11/08/18 11:47 Not Reportable 11/08/18 11:47 1+ 11/08/18 11:47 Few 11/08/18 11:47 Not Reportable 11/08/18 11:47 Not Reportable 11/08/18 11:47 Not Reportable 11/08/18 11:47 Not Reportable 11/08/18 11:47 Not Reportable 11/08/18 11:47 Not Reportable 11/08/18 11:47 Rare 11/08/18 11:47 Not Reportable 11/08/18 11:47 Not Reportable 11/08/18 11:47 Not Reportable 11/08/18 11:47 Not Reportable 11/08/18 11:47 Not Reportable 11/08/18 11:47 Not Reportable 11/08/18 11:47 Not Reportable 11/08/18 11:47 Few 11/08/18 11:47 Acanthocytes (Spur) Not Reportable 11/08/18 11:47 Rouleaux Not Reportable 11/08/18 11:47 Not Reportable 11/08/18 11:47 Not Reportable 11/08/18 11:47 Not Reportable 11/08/18 11:47 Not Reportable 11/08/18 11:47 Hem Pathologist Commnt No 11/08/18 11:47 PT 18.3 Sec. (12.2-14.9) H 11/11/18 04:46 INR 1.56 (0.87-1.13) H 11/11/18 04:46 APTT 30.4 Sec. (24.2-36.6) 11/08/18 11:47 15.4 Sec. (15.1-19.6) 11/08/18 11:47 POC ABG pH 7.443 (7.35-7.45) 11/11/18 12:23 POC ABG pCO2 34.7 (35-45) L 11/11/18 12:23 POC ABG pO2 57 (80-105) L 11/11/18 12:23 POC ABG HCO3 23.8 (22-26 mml/L) 11/11/18 12:23 POC ABG Total CO2 25 (23-27mmol/L) 11/11/18 12:23 POC ABG O2 Sat 91 11/11/18 12:23 POC ABG Base Excess 0 ((-2) - (+3)mmol/L) 11/11/18 12:23 45 % 11/11/18 12:23 Sodium 143 mmol/L (137-145) 11/15/18 05:28 Potassium 3.6 mmol/L (3.6-5.0) 11/15/18 05:28 Chloride 111.3 mmol/L (98-107) H 11/15/18 05:28 Carbon Dioxide 24 mmol/L (22-30) 11/15/18 05:28 11 mmol/L 11/15/18 05:28 BUN 11 mg/dL (7-17) 11/15/18 05:28 0.3 mg/dL (0.7-1.2) L 11/15/18 05:28 Estimated GFR > 60 ml/min 11/15/18 05:28 37 % 11/15/18 05:28 Glucose 110 mg/dL (65-100) H 11/15/18 05:28 POC Glucose 122 (70-105) H 11/15/18 11:34 Lactic Acid 1.90 mmol/L (0.7-2.0) 11/09/18 13:15 Calcium 8.6 mg/dL (8.4-10.2) 11/15/18 05:28 Phosphorus 3.50 mg/dL (2.5-4.5) 11/14/18 08:51 Magnesium 1.70 mg/dL (1.7-2.3) 11/14/18 08:51 1.10 mg/dL (0.1-1.2) 11/14/18 03:56 AST 57 units/L (5-40) H 11/14/18 03:56 ALT 33 units/L (7-56) 11/14/18 03:56 239 units/L (35-129) H 11/14/18 03:56 44.0 umol/L (25-60) 11/15/18 08:21 27 units/L (30-135) L 11/08/18 11:47 CK-MB (CK-2) < 1.0 ng/mL (0.0-4.0) 11/08/18 11:47 CK-MB (CK-2) Rel Index 3.7 (0-4) 11/08/18 11:47 < 0.010 ng/mL (0.00-0.029) 11/08/18 11:47 0.60 mg/dL (0.00-1.30) 11/09/18 05:41 5.4 g/dL (6.3-8.2) L 11/14/18 03:56 2.8 g/dL (3.9-5) L 11/14/18 03:56 1.1 % 11/14/18 03:56 TSH 2.370 mlU/mL (0.270-4.200) 11/08/18 11:47 Free T4 0.92 ng/dL (0.76-1.46) 11/08/18 11:47 [place]han (Yellow) 11/08/18 12:00 Cloudy (Clear) 11/08/18 12:00 8.0 (5.0-7.0) H 11/08/18 12:00 Ur Specific [place] 1.017 (1.003-1.030) 11/08/18 12:00 <15 mg/dl mg/dL (Negative) 11/08/18 12:00 Neg mg/dL (Negative) 11/08/18 12:00 Neg mg/dL (Negative) 11/08/18 12:00 Neg (Negative) 11/08/18 12:00 Neg (Negative) 11/08/18 12:00 Neg (Negative) 11/08/18 12:00 < 2.0 mg/dL (<2.0) 11/08/18 12:00 Ur Leukocyte Esterase Neg (Negative) 11/08/18 12:00 4.0 /HPF (0.0-6.0) 11/08/18 12:00 2.0 /HPF (0.0-6.0) 11/08/18 12:00 U Epithel Cells (Auto) 1.0 /HPF (0-13.0) 11/08/18 12:00 3+ /HPF (Negative) 11/08/18 12:00 Few /HPF 11/08/18 12:00 Vancomycin Trough 10.6 ug/mL (5.0-20.0) 11/15/18 05:28 Plasma/Serum Alcohol < 0.01 % (0-0.07) 11/08/18 11:47 Active Medications - Current Medications Current Medications: Generic Name Dose Route Start Last Admin Trade Name Freq PRN Reason Stop Dose Admin Albuterol 2.5 mg 11/08/18 13:32 Proventil IH Q3HRT PRN Shortness Of Breath Albuterol/Ipratropium 1 ampul 11/10/18 08:00 11/15/18 08:59 Duoneb *Not For Prn Use* IH 1 ampul TIDRT HUONG Administration Lipase/Protease/Amylase 1 each 11/08/18 15:47 Pancreaze 10,500 Unit FEEDTUBE PRN PRN For Clogged Feeding Tube Famotidine 20 mg 11/15/18 10:00 11/15/18 10:07 Pepcid PO 20 mg BID HUONG Administration Fentanyl 50 mcg 11/08/18 13:51 Sublimaze IV Q10MIN PRN ANALGESIA Fluticasone Propionate 50 mcg 11/09/18 10:00 11/15/18 10:08 Flonase NS 50 mcg QDAY HUONG Administration Folic Acid 1 mg 11/09/18 10:00 11/15/18 10:07 Folvite PO 1 mg QDAY HUONG Administration Hydrophilic Ointment 1 applic 11/08/18 11:37 Vaseline Lip Therapy TP Q2HR PRN Dry Lips Fentanyl Citrate 2,000 mcg in 100 mls @ 3.275 mls/hr 11/08/18 14:00 11/10/18 19:16 Fentanyl Drip Premix IV 0 mcg/kg/hr TITR HUONG 0 mls/hr Titration Protocol 1 MCG/KG/HR Propofol 1,000 mg in 100 mls @ 1.965 mls/hr 11/08/18 15:00 11/10/18 19:33 Diprivan 10 Mg/Ml IV 0 mcg/kg/min TITR HUONG 0 mls/hr Titration Protocol 5 MCG/KG/MIN Lactulose 30 gm 11/08/18 20:00 11/15/18 10:06 Cephulac PO 30 gm TID HUONG Administration Lamotrigine 25 mg 11/08/18 22:00 11/15/18 10:08 Lamictal PO 25 mg BID HUONG Administration Levetiracetam 1,500 mg 11/08/18 22:00 11/15/18 10:06 Keppra PO 1,500 mg BID HUONG Administration Levothyroxine Sodium 75 mcg 11/09/18 06:00 11/15/18 06:50 Synthroid PO 75 mcg DAILY@0600 HUONG Administration Lorazepam 2 mg 11/08/18 14:18 11/14/18 22:15 Ativan IV 2 mg Q1HR PRN Administration CIWA-Ar 8-15 Multi-Ingred Cream/Lotion/Oil/Oint 1 applic 11/08/18 11:37 Artificial Tears Ophth Oint OU Q4HR PRN Dry Eye(s) Multivitamins 1 each 11/09/18 10:00 11/15/18 10:07 Theragran Tab PO 1 each DAILY HUONG Administration Ondansetron HCl 4 mg 11/11/18 13:20 Zofran IV Q8H PRN Nausea And Vomiting Propranolol HCl 40 mg 11/09/18 10:00 11/15/18 10:07 Inderal PO 40 mg QDAY HUONG Administration Rifaximin 550 mg 11/08/18 22:00 11/15/18 10:07 Xifaxan PO 550 mg BID HUONG Administration Simple Syrup 15 ml 11/08/18 15:47 Simple Syrup FEEDTUBE PRN PRN Hypoglycemia Simple Syrup 30 ml 11/08/18 15:47 Simple Syrup FEEDTUBE PRN PRN Hypoglycemia Sodium Bicarbonate 325 mg 11/08/18 15:47 Sodium Bicarbonate FEEDTUBE PRN PRN For Clogged Feeding Tube Sodium Chloride 5 ml 11/08/18 11:37 Nacl 0.9% 500 Ml IV DIRECT PRN [employer]ERIAL INS[employer]OR TUBES Sodium Chloride 10 ml 11/08/18 22:00 11/14/18 22:16 Sodium Chloride Flush Syringe 10 Ml IV 10 ml BID HUONG Administration Sodium Chloride 10 ml 11/08/18 13:32 Sodium Chloride Flush Syringe 10 Ml IV PRN PRN LINE FLUSH Spironolactone 100 mg 11/09/18 10:00 11/15/18 10:08 Aldactone PO 100 mg QDAY HUONG Administration Thiamine HCl 100 mg 11/09/18 10:00 11/14/18 10:51 Vitamin B-1 PO 100 mg QDAY HUONG Administration Nutrition/Malnutrition Assess - Dietary Evaluation Nutrition/Malnutrition Findings: Nutrition Notes Start: 11/08/18 15:38 Freq: Status: Active Protocol: Document 11/12/18 16:20 RM (Rec: 11/12/18 16:22 RM [id number]) Nutrition Notes Initial or Follow up Brief Note Current Diet Vital 1.2 at 55 ml/hr [place] Body Weight (kg) 0 Subjective/Other Information Observed Vital 1.2 infusing at goal rate. Nutrition Intervention Follow-Up By: 11/19/18 Additional Comments Follow for TF tolerance
--- NOTE | 2018-11-15 13:26 | Progress Note ---
Assessment and Plan Patient sleeping but arousable. Appears she still confused. Patient is on Vapotherm, FIO2 50% and O2 saturation running 94%. No acute respiratory distress.Patient afebrile.Blood pressure 94/57. - Patient Problems (1) COPD (chronic obstructive pulmonary disease) Current Visit: Yes Status: Acute Qualifiers: Chronic bronchitis type: mixed simple and mucopurulent Plan to address problem: O2 supplementation , Vapotherm FIO2 50%. Albuterol/atrovent aerosol treatments q 6 hours. Continue Famotidine. SCDs. (2) CAD (coronary artery disease) Current Visit: Yes Status: Acute Qualifiers: Associated angina: without angina Plan to address problem: Management as per cardiology. (3) EtOH dependence Current Visit: Yes Status: Acute Qualifiers: Complication of substance-induced condition: with unspecified complication Plan to address problem: Management as per primary care. (4) Altered mental status Current Visit: Yes Status: Acute Plan to address problem: Management as per primary care and neurology. (5) Hepatic encephalopathy syndrome Current Visit: Yes Status: Acute Plan to address problem: Management as per primary care and gastroenterology. (6) Hypothyroid Current Visit: Yes Status: Acute Qualifiers: Hypothyroidism type: unspecified Qualified Code(s): E03.9 - Hypothyroidism, unspecified Plan to address problem: Patient is on Lev othyroxine. Management as per primary care. (7) Respiratory failure Current Visit: Yes Status: Acute Qualifiers: Plan to address problem: O2 supplementation , Vapotherm FIO2 50%. Albuterol/atrovent aerosol treatments q 6 hours. Continue Famotidine. SCDs. Subjective Date of service: 11/15/18 Principal diagnosis: Hepatic encephalopathy Interval history: Patient sleeping but arousable. Appears she still confused. Patient is on Vapotherm, FIO2 50% and O2 saturation running 94%. No acute respiratory distress.Patient afebrile.Blood pressure 94/57. Objective Vital Signs - 12hr 11/15/18 11/15/18 11/15/18 02:00 03:00 04:00 Temperature 96.0 F L Pulse Rate 64 64 60 Pulse Rate [ Anterior Bilateral Throughout] Pulse Rate [ From Monitor] Respiratory 19 19 17 Rate Respiratory Rate [Anterior Bilateral Throughout] Blood Pressure 112/65 112/65 111/55 O2 Sat by Pulse 98 99 100 Oximetry 0711/15/18 11/15/18 05:00 06:00 07:00 Temperature Pulse Rate 60 61 65 Pulse Rate [ Anterior Bilateral Throughout] Pulse Rate [ 68 From Monitor] Respiratory 19 16 17 Rate Respiratory Rate [Anterior Bilateral Throughout] Blood Pressure 114/54 123/68 114/54 O2 Sat by Pulse 100 94 90 Oximetry 11/15/18 11/15/18 11/15/18 08:00 08:55 09:00 Temperature Pulse Rate 62 58 L Pulse Rate [ 56 L Anterior Bilateral Throughout] Pulse Rate [ From Monitor] Respiratory 21 19 Rate Respiratory 22 Rate [Anterior Bilateral Throughout] Blood Pressure 97/49 102/57 O2 Sat by Pulse 93 92 Oximetry 11/15/18 11/15/18 11/15/18 09:12 10:00 10:07 Temperature Pulse Rate 61 64 Pulse Rate [ 58 L Anterior Bilateral Throughout] Pulse Rate [ From Monitor] Respiratory 19 Rate Respiratory 20 Rate [Anterior Bilateral Throughout] Blood Pressure 102/57 95/54 O2 Sat by Pulse 89 Oximetry 11/15/18 10:08 Temperature Pulse Rate 65 Pulse Rate [ Anterior Bilateral Throughout] Pulse Rate [ From Monitor] Respiratory Rate Respiratory Rate [Anterior Bilateral Throughout] Blood Pressure 95/54 O2 Sat by Pulse Oximetry Constitutional: no acute distress, other (elderly and chronically ill looking CF, normocephalic with mildly increase resp effort on MVS) Eyes: non-icteric ENT: oropharynx moist, other (extubated) Neck: supple, no lymphadenopathy, no JVD, other (no thyromegaly) Effort: mildly labored Ascultation: Bilateral: rales, rhonchi Percussion: Bilateral: not dull Cardiovascular: regular rate and rhythm Gastrointestinal: normoactive bowel sounds, soft, non-tender, non-distended Integumentary: rash, other (spider naevi) Extremities: no cyanosis, no edema, pulses normal, no ischemia or petechiae Neurologic: non-focal exam (grossly), pupils equal and round, CN II-XII normal, motor strength normal and Psychiatric: mood appropriate, affect normal CBC and BMP: 11/15/18 05:28 11/15/18 05:28 ABG, PT/INR, D-dimer: ABG POC ABG pH 7.443 (7.35-7.45) 11/11/18 12:23 POC ABG pCO2 34.7 (35-45) L 11/11/18 12:23 POC ABG pO2 57 (80-105) L 11/11/18 12:23 POC ABG HCO3 23.8 (22-26 mml/L) 11/11/18 12:23 POC ABG Total CO2 25 (23-27mmol/L) 11/11/18 12:23 POC ABG O2 Sat 91 11/11/18 12:23 PT/INR, D-dimer PT 18.3 Sec. (12.2-14.9) H 11/11/18 04:46 INR 1.56 (0.87-1.13) H 11/11/18 04:46 Abnormal lab findings: Abnormal Labs 11/08/18 11/08/18 11/08/18 11:47 11:47 11:47 WBC 3.4 L Hgb MCH 26 L RDW 21.6 H Lymph % (Auto) Lymph # Seg Neutrophils % Monocytes % (Manual) 13.0 H Basophils % (Manual) 3.0 H Seg Neutrophils # Lymphocytes # (Manual) 0.6 L PT 17.3 H INR 1.45 H POC ABG pH POC ABG pCO2 POC ABG pO2 Potassium Chloride BUN Creatinine 0.6 L Glucose 130 H POC Glucose Total Bilirubin 1.50 H AST Alkaline Phosphatase 140 H Ammonia Total Creatine Kinase 27 L Total Protein 6.0 L Albumin 3.0 L Urine pH 11/08/18 11/08/18 11/08/18 11:47 12:00 14:01 WBC Hgb MCH RDW Lymph % (Auto) Lymph # Seg Neutrophils % Monocytes % (Manual) Basophils % (Manual) Seg Neutrophils # Lymphocytes # (Manual) PT INR POC ABG pH 7.452 H POC ABG pCO2 32.8 L POC ABG pO2 127 H Potassium Chloride BUN Creatinine Glucose POC Glucose Total Bilirubin AST Alkaline Phosphatase Ammonia 123.0 H Total Creatine Kinase Total Protein Albumin Urine pH 8.0 H 11/08/18 11/08/18 11/09/18 14:34 15:13 04:31 WBC Hgb MCH RDW Lymph % (Auto) Lymph # Seg Neutrophils % Monocytes % (Manual) Basophils % (Manual) Seg Neutrophils # Lymphocytes # (Manual) PT INR POC ABG pH 7.468 H POC ABG pCO2 POC ABG pO2 76 L 73 L Potassium Chloride BUN Creatinine Glucose POC Glucose 112 H Total Bilirubin AST Alkaline Phosphatase Ammonia Total Creatine Kinase Total Protein Albumin Urine pH 11/09/18 11/09/18 11/09/18 05:41 05:41 05:41 WBC Hgb MCH 26 L RDW 21.5 H Lymph % (Auto) 3.2 L Lymph # 0.3 L Seg Neutrophils % 89.4 H Monocytes % (Manual) Basophils % (Manual) Seg Neutrophils # 9.6 H Lymphocytes # (Manual) PT INR POC ABG pH POC ABG pCO2 POC ABG pO2 Potassium Chloride BUN 6 L Creatinine 0.4 L Glucose POC Glucose Total Bilirubin 1.80 H AST Alkaline Phosphatase 153 H Ammonia 75.0 H Total Creatine Kinase Total Protein Albumin 3.2 L Urine pH 11/09/18 11/10/18 11/10/18 11:44 00:11 04:14 WBC Hgb MCH RDW Lymph % (Auto) Lymph # Seg Neutrophils % Monocytes % (Manual) Basophils % (Manual) Seg Neutrophils # Lymphocytes # (Manual) PT INR POC ABG pH POC ABG pCO2 POC ABG pO2 74 L Potassium Chloride BUN Creatinine Glucose POC Glucose 114 H 134 H Total Bilirubin AST Alkaline Phosphatase Ammonia Total Creatine Kinase Total Protein Albumin Urine pH 11/10/18 11/10/18 11/10/18 08:19 08:19 08:19 WBC 14.8 H Hgb MCH 26 L RDW 21.9 H Lymph % (Auto) Lymph # Seg Neutrophils % Monocytes % (Manual) Basophils % (Manual) Seg Neutrophils # Lymphocytes # (Manual) PT INR POC ABG pH POC ABG pCO2 POC ABG pO2 Potassium Chloride BUN Creatinine 0.5 L Glucose 117 H POC Glucose Total Bilirubin 1.30 H AST Alkaline Phosphatase 155 H Ammonia 62.0 H Total Creatine Kinase Total Protein 6.0 L Albumin 2.8 L Urine pH 11/11/18 11/11/18 11/11/18 00:02 04:16 04:46 WBC 12.2 H Hgb MCH 26 L RDW 22.4 H Lymph % (Auto) Lymph # Seg Neutrophils % Monocytes % (Manual) Basophils % (Manual) Seg Neutrophils # Lymphocytes # (Manual) PT INR POC ABG pH POC ABG pCO2 POC ABG pO2 58 L Potassium Chloride BUN Creatinine Glucose POC Glucose 112 H Total Bilirubin AST Alkaline Phosphatase Ammonia Total Creatine Kinase Total Protein Albumin Urine pH 11/11/18 11/11/18 11/11/18 04:46 04:46 05:50 WBC Hgb MCH RDW Lymph % (Auto) Lymph # Seg Neutrophils % Monocytes % (Manual) Basophils % (Manual) Seg Neutrophils # Lymphocytes # (Manual) PT 18.3 H INR 1.56 H POC ABG pH POC ABG pCO2 POC ABG pO2 Potassium Chloride BUN Creatinine 0.4 L Glucose 119 H POC Glucose 133 H Total Bilirubin AST Alkaline Phosphatase 152 H Ammonia Total Creatine Kinase Total Protein 6.1 L Albumin 2.8 L Urine pH 11/11/18 11/11/18 11/12/18 11:38 12:23 04:23 WBC Hgb 9.8 L MCH 26 L RDW 22.8 H Lymph % (Auto) Lymph # Seg Neutrophils % Monocytes % (Manual) Basophils % (Manual) Seg Neutrophils # Lymphocytes # (Manual) PT INR POC ABG pH POC ABG pCO2 34.7 L POC ABG pO2 57 L Potassium Chloride BUN Creatinine Glucose POC Glucose 123 H Total Bilirubin AST Alkaline Phosphatase Ammonia Total Creatine Kinase Total Protein Albumin Urine pH 11/12/18 11/12/18 11/13/18 04:23 11:24 04:03 WBC 4.1 L Hgb MCH 26 L RDW 22.7 H Lymph % (Auto) Lymph # Seg Neutrophils % Monocytes % (Manual) Basophils % (Manual) Seg Neutrophils # Lymphocytes # (Manual) PT INR POC ABG pH POC ABG pCO2 POC ABG pO2 Potassium Chloride 107.4 H BUN Creatinine 0.5 L Glucose 124 H POC Glucose 142 H Total Bilirubin AST Alkaline Phosphatase 163 H Ammonia Total Creatine Kinase Total Protein 5.9 L Albumin 2.8 L Urine pH 11/13/18 11/14/18 11/14/18 04:03 03:56 03:56 WBC Hgb 10.0 L MCH 26 L RDW 23.4 H Lymph % (Auto) Lymph # Seg Neutrophils % Monocytes % (Manual) Basophils % (Manual) Seg Neutrophils # Lymphocytes # (Manual) PT INR POC ABG pH POC ABG pCO2 POC ABG pO2 Potassium 3.2 L 3.5 L Chloride 109.1 H 107.9 H BUN Creatinine 0.4 L 0.3 L Glucose 109 H 118 H POC Glucose Total Bilirubin AST 59 H 57 H Alkaline Phosphatase 213 H 239 H Ammonia Total Creatine Kinase Total Protein 5.9 L 5.4 L Albumin 2.7 L 2.8 L Urine pH 0711/15/18 11/15/18 05:28 05:28 11:34 WBC Hgb 9.8 L MCH 26 L RDW 23.3 H Lymph % (Auto) Lymph # Seg Neutrophils % Monocytes % (Manual) Basophils % (Manual) Seg Neutrophils # Lymphocytes # (Manual) PT INR POC ABG pH POC ABG pCO2 POC ABG pO2 Potassium Chloride 111.3 H BUN Creatinine 0.3 L Glucose 110 H POC Glucose 122 H Total Bilirubin AST Alkaline Phosphatase Ammonia Total Creatine Kinase Total Protein Albumin Urine pH Chest x-ray: report reviewed (Left basilar decrease in density.), image reviewed Allied health notes reviewed: nursing
[2018-11-15] MEDS: VITAMIN B-1 PO SCH (17:46)
[2018-11-15] MEDS: SODIUM CHLORIDE FLUSH SYRINGE 10 ML IV SCH (23:03)
[2018-11-16 05:27] LABS: Hematocrit 33.4 % (30.3-42.9); Hemoglobin 10.4 gm/dl (10.1-14.3); Mean Corpuscular HGB Conc 31 % (30-34); Mean Corpuscular Volume 82 fl (79-97); Platelet Count 235 K/mm3 (140-440); Red Blood Count 4.08 M/mm3 (3.65-5.03)
[2018-11-16 05:30] LABS: Red Cell Distribution Width 23.4 % (13.2-15.2)
[2018-11-16] MEDS: SYNTHROID PO SCH (05:34)
[2018-11-16 05:37] LABS: INR 1.34 (0.87-1.13)
[2018-11-16 05:54] LABS: BUN/Creatinine Ratio 28; Blood Urea Nitrogen 11 mg/dL (7-17); Calcium 8.7 mg/dL (8.4-10.2); Hemolysis Index 10
[2018-11-16] MEDS ORDERED: DUONEB *Not for PRN Use IH ONE (07:33)
[2018-11-16] MEDS: DUONEB *Not for PRN Use IH SCH (07:38)
[2018-11-16] MEDS: CEPHULAC PO SCH ×3 (08:30→20:40)
[2018-11-16] MEDS: SODIUM CHLORIDE FLUSH SYRINGE 10 ML IV SCH ×2 (09:43→22:00)
[2018-11-16] MEDS: FLONASE NS SCH (09:45)
[2018-11-16] MEDS: ALDACTONE PO SCH (09:45)
[2018-11-16] MEDS: FOLVITE PO SCH (09:46)
[2018-11-16] MEDS: INDERAL PO SCH (09:47)
[2018-11-16] MEDS: LaMICtal PO SCH ×2 (09:47→21:42)
[2018-11-16] MEDS: KEPPRA PO SCH ×2 (09:47→21:41)
[2018-11-16] MEDS: THERAGRAN Tab PO SCH (09:48)
[2018-11-16] MEDS: XIFAXAN PO SCH ×2 (09:48→21:42)
[2018-11-16] MEDS: VITAMIN B-1 PO SCH (09:48)
[2018-11-16] MEDS: PEPCID PO SCH ×2 (09:48→21:41)
--- NOTE | 2018-11-16 10:47 | Progress Note ---
Assessment and Plan Cultures: 11/08/2018 blood cultures: no growth 11/08/2018 urine culture: 10K-100K Enterococcus species - VRE 11/08/2018 tracheal aspirate: Usual respiratory faustina with moderate growth of MRSA A/P: 62-year-old detention resident with end-stage liver disease attributed to alcoholic cirrhosis, esophageal varices, hypertension, COPD, dementia, seizure disorder, history of CVA was brought to the emergency room on 11/08/2018 with altered mental status. 1) Leucocytosis: Resolved. etiology unclear. UA not consistent with UTI. CXR doesn't show a pneumonia, except a 3 cm retrocardiac opacity, that was noted on CTA chest from 09/2018 that showed " Prominent soft tissue density lesion near the left infrahilar region from the GE junction to the left pulmonary vein may represent varices with collateralized return. " No clinical concern for SBP. 2) Enterococcus VRE in urine culture: no pyuria. Unlikely UTI. colonization, no treatment indicated. 3) MRSA in tracheal aspirate: no pneumonia on CXR. Likely colonization. On abx trial as of now. Given response, treat for possible tracheobronchitis for 5 total days. 4) ESLD: GI following. On lactulose, rifaximin. RUQ US showed cirrhotic liver. 5) Acute encephalopathy: improving. Recs: -contact isolation for VRE and MRSA -monitor off antibiotics -Clinically stable from ID standpoint. We are signing off, please call for questions. Gina Kwok NP [facility] M: [phone] O:[phone] Subjective Date of service: 11/16/18 Principal diagnosis: Hepatic encephalopathy Interval history: Patient seen and examined. Awake. Alert. Reports no acute distress. On Hi FLow 02 . Objective - Exam Narrative Exam: Constitutional: awake, alert. No acute distress. Head, Ears, Nose: Normocephalic, atraumatic. External ears, nose normal Eyes: Conjunctivae/corneas clear. No icterus. No ptosis. Neck: Supple, no meningeal signs Cardiovascular: S1, S2 normal. Respiratory: Good air entry, clear to auscultation bilaterally. High flow O2 @ 50 % GI: Soft, non-tender; bowel sounds normal. No peritoneal signs. Musculoskeletal: No pedal edema, no cyanosis. Skin: No rash or abscess Hem/Lymphatic: No palpable cervical or supraclavicular nodes. No lymphangitis Psych: no agitation Neurological: awake, opens eyes, follows commands. - Constitutional Vitals: Vital Signs Temp Pulse Resp BP Pulse Ox 96.0 F L 75 15 93/42 96 11/16/18 04:00 11/16/18 09:47 11/16/18 07:40 11/16/18 09:47 11/16/18 07:38 Temperature -Last 24 Hours Temperature 96.0 F Temperature 97.2 F Temperature 96.9 F Temperature 97.2 F - Labs CBC & Chem 7: 11/16/18 04:59 11/16/18 04:59 Labs: Abnormal lab results 11/15/18 11/15/18 11/16/18 Range/Units 11:34 16:11 04:59 MCH (28-32) pg RDW (13.2-15.2) % PT (12.2-14.9) Sec. INR (0.87-1.13) Sodium 146 H (137-145) mmol/L Chloride 110.4 H (98-107) mmol/L Creatinine 0.4 L (0.7-1.2) mg/dL POC Glucose 122 H 127 H (70-105) 11/16/18 11/16/18 Range/Units 04:59 04:59 MCH 26 L (28-32) pg RDW 23.4 H (13.2-15.2) % PT 16.2 H (12.2-14.9) Sec. INR 1.34 H (0.87-1.13) Sodium (137-145) mmol/L Chloride (98-107) mmol/L Creatinine (0.7-1.2) mg/dL POC Glucose (70-105)
--- NOTE | 2018-11-16 13:20 | Progress Note ---
Assessment and Plan Patient awake. Undergoing bed side physical therapy. Appears she still confused. Patient is on Vapotherm, FIO2 50% and O2 saturation running 90%. No acute respiratory distress.Patient afebrile.Blood pressure 94/45. - Patient Problems (1) COPD (chronic obstructive pulmonary disease) Current Visit: Yes Status: Acute Qualifiers: Chronic bronchitis type: mixed simple and mucopurulent Plan to address problem: O2 supplementation , Vapotherm FIO2 50%. Albuterol/atrovent aerosol treatments q 6 hours prn for shortness of breath. Brovanna/Budesonide aerosol treatments q 12 hours. Continue Famotidine. SCDs. (2) CAD (coronary artery disease) Current Visit: Yes Status: Acute Qualifiers: Associated angina: without angina Plan to address problem: Management as per cardiology. (3) EtOH dependence Current Visit: Yes Status: Acute Qualifiers: Complication of substance-induced condition: with unspecified complication Plan to address problem: Management as per primary care. (4) Altered mental status Current Visit: Yes Status: Acute Plan to address problem: Management as per primary care and neurology. (5) Hepatic encephalopathy syndrome Current Visit: Yes Status: Acute Plan to address problem: Management as per primary care and gastroenterology. (6) Hypothyroid Current Visit: Yes Status: Acute Qualifiers: Hypothyroidism type: unspecified Qualified Code(s): E03.9 - Hypothyroidism, unspecified Plan to address problem: Patient is on Lev othyroxine. Management as per primary care. (7) Respiratory failure Current Visit: Yes Status: Acute Qualifiers: Plan to address problem: O2 supplementation , Vapotherm FIO2 50%. Albuterol/atrovent aerosol treatments q 6 hours Prn for shortness of breath. Brovanna/Budesonide aerosol treatments q 12 hours. Continue Famotidine. SCDs. Subjective Date of service: 11/16/18 Principal diagnosis: Hepatic encephalopathy Interval history: Patient awake. Undergoing bed side physical therapy. Appears she still confused. Patient is on Vapotherm, FIO2 50% and O2 saturation running 90%. No acute respiratory distress.Patient afebrile.Blood pressure 94/45. Objective Vital Signs - 12hr 11/16/18 11/16/18 11/16/18 02:00 03:00 04:00 Temperature 96.0 F L Pulse Rate 69 69 65 Pulse Rate [ Anterior Bilateral Throughout] Pulse Rate [ 70 From Monitor] Pulse Rate [ 69 Right Dorsalis Pedis] Respiratory 16 19 15 Rate Respiratory Rate [Anterior Bilateral Throughout] Blood Pressure 117/58 113/62 103/53 O2 Sat by Pulse 93 93 94 Oximetry 11/16/18 11/16/18 11/16/18 05:00 06:00 07:00 Temperature Pulse Rate 68 67 63 Pulse Rate [ Anterior Bilateral Throughout] Pulse Rate [ From Monitor] Pulse Rate [ Right Dorsalis Pedis] Respiratory 21 17 15 Rate Respiratory Rate [Anterior Bilateral Throughout] Blood Pressure 112/58 109/51 99/49 O2 Sat by Pulse 89 93 95 Oximetry 11/16/18 11/16/18 11/16/18 07:38 07:39 07:40 Temperature Pulse Rate Pulse Rate [ 64 63 Anterior Bilateral Throughout] Pulse Rate [ From Monitor] Pulse Rate [ Right Dorsalis Pedis] Respiratory Rate Respiratory 14 15 Rate [Anterior Bilateral Throughout] Blood Pressure O2 Sat by Pulse 96 Oximetry 11/16/18 11/16/18 11/16/18 08:00 09:00 09:45 Temperature 97.6 F Pulse Rate 72 62 75 Pulse Rate [ Anterior Bilateral Throughout] Pulse Rate [ From Monitor] Pulse Rate [ Right Dorsalis Pedis] Respiratory 13 16 Rate Respiratory Rate [Anterior Bilateral Throughout] Blood Pressure 99/49 117/78 93/42 O2 Sat by Pulse 91 95 Oximetry 11/16/18 11/16/18 11/16/18 09:47 10:00 11:00 Temperature Pulse Rate 75 71 66 Pulse Rate [ Anterior Bilateral Throughout] Pulse Rate [ From Monitor] Pulse Rate [ Right Dorsalis Pedis] Respiratory 10 L 16 Rate Respiratory Rate [Anterior Bilateral Throughout] Blood Pressure 93/42 93/42 94/45 O2 Sat by Pulse 92 97 Oximetry 11/16/18 12:00 Temperature 97.9 F Pulse Rate Pulse Rate [ Anterior Bilateral Throughout] Pulse Rate [ From Monitor] Pulse Rate [ Right Dorsalis Pedis] Respiratory Rate Respiratory Rate [Anterior Bilateral Throughout] Blood Pressure O2 Sat by Pulse Oximetry Constitutional: no acute distress, alert Eyes: non-icteric ENT: oropharynx moist, other (extubated) Neck: supple, no lymphadenopathy, no JVD, other (no thyromegaly) Effort: mildly labored Ascultation: Bilateral: rales, rhonchi Percussion: Bilateral: not dull Cardiovascular: regular rate and rhythm Gastrointestinal: normoactive bowel sounds, soft, non-tender, non-distended Integumentary: rash, other (spider naevi) Extremities: no cyanosis, no edema, pulses normal, no ischemia or petechiae Neurologic: non-focal exam (grossly), pupils equal and round, CN II-XII normal, motor strength normal and Psychiatric: mood appropriate, affect normal CBC and BMP: 11/16/18 04:59 11/16/18 04:59 ABG, PT/INR, D-dimer: ABG POC ABG pH 7.443 (7.35-7.45) 11/11/18 12:23 POC ABG pCO2 34.7 (35-45) L 11/11/18 12:23 POC ABG pO2 57 (80-105) L 11/11/18 12:23 POC ABG HCO3 23.8 (22-26 mml/L) 11/11/18 12:23 POC ABG Total CO2 25 (23-27mmol/L) 11/11/18 12:23 POC ABG O2 Sat 91 11/11/18 12:23 PT/INR, D-dimer PT 16.2 Sec. (12.2-14.9) H 11/16/18 04:59 INR 1.34 (0.87-1.13) H 11/16/18 04:59 Abnormal lab findings: Abnormal Labs 11/08/18 11/08/18 11/08/18 11:47 11:47 11:47 WBC 3.4 L Hgb MCH 26 L RDW 21.6 H Lymph % (Auto) Lymph # Seg Neutrophils % Monocytes % (Manual) 13.0 H Basophils % (Manual) 3.0 H Seg Neutrophils # Lymphocytes # (Manual) 0.6 L PT 17.3 H INR 1.45 H POC ABG pH POC ABG pCO2 POC ABG pO2 Sodium Potassium Chloride BUN Creatinine 0.6 L Glucose 130 H POC Glucose Total Bilirubin 1.50 H AST Alkaline Phosphatase 140 H Ammonia Total Creatine Kinase 27 L Total Protein 6.0 L Albumin 3.0 L Urine pH 11/08/18 11/08/18 11/08/18 11:47 12:00 14:01 WBC Hgb MCH RDW Lymph % (Auto) Lymph # Seg Neutrophils % Monocytes % (Manual) Basophils % (Manual) Seg Neutrophils # Lymphocytes # (Manual) PT INR POC ABG pH 7.452 H POC ABG pCO2 32.8 L POC ABG pO2 127 H Sodium Potassium Chloride BUN Creatinine Glucose POC Glucose Total Bilirubin AST Alkaline Phosphatase Ammonia 123.0 H Total Creatine Kinase Total Protein Albumin Urine pH 8.0 H 11/08/18 11/08/18 11/09/18 14:34 15:13 04:31 WBC Hgb MCH RDW Lymph % (Auto) Lymph # Seg Neutrophils % Monocytes % (Manual) Basophils % (Manual) Seg Neutrophils # Lymphocytes # (Manual) PT INR POC ABG pH 7.468 H POC ABG pCO2 POC ABG pO2 76 L 73 L Sodium Potassium Chloride BUN Creatinine Glucose POC Glucose 112 H Total Bilirubin AST Alkaline Phosphatase Ammonia Total Creatine Kinase Total Protein Albumin Urine pH 11/09/18 11/09/18 11/09/18 05:41 05:41 05:41 WBC Hgb MCH 26 L RDW 21.5 H Lymph % (Auto) 3.2 L Lymph # 0.3 L Seg Neutrophils % 89.4 H Monocytes % (Manual) Basophils % (Manual) Seg Neutrophils # 9.6 H Lymphocytes # (Manual) PT INR POC ABG pH POC ABG pCO2 POC ABG pO2 Sodium Potassium Chloride BUN 6 L Creatinine 0.4 L Glucose POC Glucose Total Bilirubin 1.80 H AST Alkaline Phosphatase 153 H Ammonia 75.0 H Total Creatine Kinase Total Protein Albumin 3.2 L Urine pH 11/09/18 11/10/18 11/10/18 11:44 00:11 04:14 WBC Hgb MCH RDW Lymph % (Auto) Lymph # Seg Neutrophils % Monocytes % (Manual) Basophils % (Manual) Seg Neutrophils # Lymphocytes # (Manual) PT INR POC ABG pH POC ABG pCO2 POC ABG pO2 74 L Sodium Potassium Chloride BUN Creatinine Glucose POC Glucose 114 H 134 H Total Bilirubin AST Alkaline Phosphatase Ammonia Total Creatine Kinase Total Protein Albumin Urine pH 11/10/18 11/10/18 11/10/18 08:19 08:19 08:19 WBC 14.8 H Hgb MCH 26 L RDW 21.9 H Lymph % (Auto) Lymph # Seg Neutrophils % Monocytes % (Manual) Basophils % (Manual) Seg Neutrophils # Lymphocytes # (Manual) PT INR POC ABG pH POC ABG pCO2 POC ABG pO2 Sodium Potassium Chloride BUN Creatinine 0.5 L Glucose 117 H POC Glucose Total Bilirubin 1.30 H AST Alkaline Phosphatase 155 H Ammonia 62.0 H Total Creatine Kinase Total Protein 6.0 L Albumin 2.8 L Urine pH 11/11/18 11/11/18 11/11/18 00:02 04:16 04:46 WBC 12.2 H Hgb MCH 26 L RDW 22.4 H Lymph % (Auto) Lymph # Seg Neutrophils % Monocytes % (Manual) Basophils % (Manual) Seg Neutrophils # Lymphocytes # (Manual) PT INR POC ABG pH POC ABG pCO2 POC ABG pO2 58 L Sodium Potassium Chloride BUN Creatinine Glucose POC Glucose 112 H Total Bilirubin AST Alkaline Phosphatase Ammonia Total Creatine Kinase Total Protein Albumin Urine pH 11/11/18 11/11/18 11/11/18 04:46 04:46 05:50 WBC Hgb MCH RDW Lymph % (Auto) Lymph # Seg Neutrophils % Monocytes % (Manual) Basophils % (Manual) Seg Neutrophils # Lymphocytes # (Manual) PT 18.3 H INR 1.56 H POC ABG pH POC ABG pCO2 POC ABG pO2 Sodium Potassium Chloride BUN Creatinine 0.4 L Glucose 119 H POC Glucose 133 H Total Bilirubin AST Alkaline Phosphatase 152 H Ammonia Total Creatine Kinase Total Protein 6.1 L Albumin 2.8 L Urine pH 11/11/18 11/11/18 11/12/18 11:38 12:23 04:23 WBC Hgb 9.8 L MCH 26 L RDW 22.8 H Lymph % (Auto) Lymph # Seg Neutrophils % Monocytes % (Manual) Basophils % (Manual) Seg Neutrophils # Lymphocytes # (Manual) PT INR POC ABG pH POC ABG pCO2 34.7 L POC ABG pO2 57 L Sodium Potassium Chloride BUN Creatinine Glucose POC Glucose 123 H Total Bilirubin AST Alkaline Phosphatase Ammonia Total Creatine Kinase Total Protein Albumin Urine pH 11/12/18 11/12/18 11/13/18 04:23 11:24 04:03 WBC 4.1 L Hgb MCH 26 L RDW 22.7 H Lymph % (Auto) Lymph # Seg Neutrophils % Monocytes % (Manual) Basophils % (Manual) Seg Neutrophils # Lymphocytes # (Manual) PT INR POC ABG pH POC ABG pCO2 POC ABG pO2 Sodium Potassium Chloride 107.4 H BUN Creatinine 0.5 L Glucose 124 H POC Glucose 142 H Total Bilirubin AST Alkaline Phosphatase 163 H Ammonia Total Creatine Kinase Total Protein 5.9 L Albumin 2.8 L Urine pH 11/13/18 11/14/18 11/14/18 04:03 03:56 03:56 WBC Hgb 10.0 L MCH 26 L RDW 23.4 H Lymph % (Auto) Lymph # Seg Neutrophils % Monocytes % (Manual) Basophils % (Manual) Seg Neutrophils # Lymphocytes # (Manual) PT INR POC ABG pH POC ABG pCO2 POC ABG pO2 Sodium Potassium 3.2 L 3.5 L Chloride 109.1 H 107.9 H BUN Creatinine 0.4 L 0.3 L Glucose 109 H 118 H POC Glucose Total Bilirubin AST 59 H 57 H Alkaline Phosphatase 213 H 239 H Ammonia Total Creatine Kinase Total Protein 5.9 L 5.4 L Albumin 2.7 L 2.8 L Urine pH 11/15/18 11/15/18 11/15/18 05:28 05:28 11:34 WBC Hgb 9.8 L MCH 26 L RDW 23.3 H Lymph % (Auto) Lymph # Seg Neutrophils % Monocytes % (Manual) Basophils % (Manual) Seg Neutrophils # Lymphocytes # (Manual) PT INR POC ABG pH POC ABG pCO2 POC ABG pO2 Sodium Potassium Chloride 111.3 H BUN Creatinine 0.3 L Glucose 110 H POC Glucose 122 H Total Bilirubin AST Alkaline Phosphatase Ammonia Total Creatine Kinase Total Protein Albumin Urine pH 11/15/18 11/16/18 11/16/18 16:11 04:59 04:59 WBC Hgb MCH 26 L RDW 23.4 H Lymph % (Auto) Lymph # Seg Neutrophils % Monocytes % (Manual) Basophils % (Manual) Seg Neutrophils # Lymphocytes # (Manual) PT INR POC ABG pH POC ABG pCO2 POC ABG pO2 Sodium 146 H Potassium Chloride 110.4 H BUN Creatinine 0.4 L Glucose POC Glucose 127 H Total Bilirubin AST Alkaline Phosphatase Ammonia Total Creatine Kinase Total Protein Albumin Urine pH 11/16/18 04:59 WBC Hgb MCH RDW Lymph % (Auto) Lymph # Seg Neutrophils % Monocytes % (Manual) Basophils % (Manual) Seg Neutrophils # Lymphocytes # (Manual) PT 16.2 H INR 1.34 H POC ABG pH POC ABG pCO2 POC ABG pO2 Sodium Potassium Chloride BUN Creatinine Glucose POC Glucose Total Bilirubin AST Alkaline Phosphatase Ammonia Total Creatine Kinase Total Protein Albumin Urine pH Allied health notes reviewed: nursing
[2018-11-16] MEDS ORDERED: PROVENTIL IH PRN (13:46)
[2018-11-16] MEDS ORDERED: ATROVENT IH PRN (13:46)
--- NOTE | 2018-11-16 16:48 | Progress Note ---
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 As per staff, the patient was in her usual state of health at bedtime which was around 2030 hrs. Pt was found to be confused with decreased level of consciousness. EMS notified and upon arrival the patient was found to be in distress. Pt transported to [facility]. Pt seen and evaluated in ED and found to have Encephalopathy, and Acute Hypoxemic Respiratory Failure and was unable to protect her airway. Pt intubated and placed on vent support, admitted to ICU. She improved, extubated 11/11/18. ammonia improved, normalized on Lactulose. She is now awake,alert. She is however on high amount of Oxygen, on high flow nasal canula. patient also has MRSA sputum and VRE Urine. Acute respiratory failure was intubated, on vent, now extubated 11/11 Now on Oxygen by high flow Oxygen continue to wean as tolerated Pulm following Hepatic encephalopathy with hyperammonia Improving, now awake,alert,oriented Continue Lactulose Consulted GI, following Alcoholic cirrhosis of liver GI following MRSA sputum Contact isolation VRE Urine, likely colonization Alcohol use Hypertension Monitor BP COPD Seizure disorder seizure precautions Continue Keppra and Lamictal. 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 Hospitalist Physical - Physical exam Narrative exam: Gen: Not in acute distress, lying in bed, confused/delirium HEENT: Normocephalic, atraumatic Neck: supple, no JVD Heart: S1 and S2 reg, no murmurs, rubs or gallop Lungs: Clear, no crackles, no wheeze Abd: soft, non tender, non distended, normal BS Ext: No edema, no clubbing, no cyanosis, Neuro: Awake,alert, moves all ext - Constitutional Vitals: Temp Pulse Resp BP Pulse Ox 97.9 F 65 17 106/59 95 11/16/18 12:00 11/16/18 16:00 11/16/18 16:00 11/16/18 16:00 11/16/18 16:00 General appearance: Present: no acute distress Results - Labs CBC & Chem 7: 11/16/18 04:59 11/16/18 04:59 Labs: Laboratory Last Values WBC 4.8 K/mm3 (4.5-11.0) 11/16/18 04:59 RBC 4.08 M/mm3 (3.65-5.03) 11/16/18 04:59 Hgb 10.4 gm/dl (10.1-14.3) 11/16/18 04:59 Hct 33.4 % (30.3-42.9) 11/16/18 04:59 MCV 82 fl (79-97) 11/16/18 04:59 MCH 26 pg (28-32) L 11/16/18 04:59 MCHC 31 % (30-34) 11/16/18 04:59 RDW 23.4 % (13.2-15.2) H 11/16/18 04:59 Plt Count 235 K/mm3 (140-440) 11/16/18 04:59 Lymph % (Auto) 3.2 % (13.4-35.0) L 11/09/18 05:41 [place] % (Auto) 6.5 % (0.0-7.3) 11/09/18 05:41 Eos % (Auto) 0.3 % (0.0-4.3) 11/09/18 05:41 Baso % (Auto) 0.6 % (0.0-1.8) 11/09/18 05:41 Lymph # 0.3 K/mm3 (1.2-5.4) L 11/09/18 05:41 [place] # 0.7 K/mm3 (0.0-0.8) 11/09/18 05:41 Eos # 0.0 K/mm3 (0.0-0.4) 11/09/18 05:41 Baso # 0.1 K/mm3 (0.0-0.1) 11/09/18 05:41 Add Manual Diff Complete 11/08/18 11:47 Total Counted 100 11/08/18 11:47 Seg Neutrophils % 89.4 % (40.0-70.0) H 11/09/18 05:41 Seg Neuts % (Manual) 65.0 % (40.0-70.0) 11/08/18 11:47 0 % 11/08/18 11:47 17.0 % (13.4-35.0) 11/08/18 11:47 Reactive Lymphs % (Man) 0 % 11/08/18 11:47 13.0 % (0.0-7.3) H 11/08/18 11:47 2.0 % (0.0-4.3) 11/08/18 11:47 3.0 % (0.0-1.8) H 11/08/18 11:47 0 % 11/08/18 11:47 0 % 11/08/18 11:47 0 % 11/08/18 11:47 0 % 11/08/18 11:47 Nucleated RBC % Not Reportable 11/08/18 11:47 Seg Neutrophils # 9.6 K/mm3 (1.8-7.7) H 11/09/18 05:41 Seg Neutrophils # Man 2.2 K/mm3 (1.8-7.7) 11/08/18 11:47 Band Neutrophils # 0.0 K/mm3 11/08/18 11:47 0.6 K/mm3 (1.2-5.4) L 11/08/18 11:47 Abs React Lymphs (Man) 0.0 K/mm3 11/08/18 11:47 0.4 K/mm3 (0.0-0.8) 11/08/18 11:47 0.1 K/mm3 (0.0-0.4) 11/08/18 11:47 0.1 K/mm3 (0.0-0.1) 11/08/18 11:47 0.0 K/mm3 11/08/18 11:47 0.0 K/mm3 11/08/18 11:47 0.0 K/mm3 11/08/18 11:47 Blast Cells # 0.0 K/mm3 11/08/18 11:47 WBC Morphology Not Reportable 11/08/18 11:47 Hypersegmented Neuts Not Reportable 11/08/18 11:47 Hyposegmented Neuts Not Reportable 11/08/18 11:47 Hypogranular Neuts Not Reportable 11/08/18 11:47 Not Reportable 11/08/18 11:47 Not Reportable 11/08/18 11:47 Not Reportable 11/08/18 11:47 Not Reportable 11/08/18 11:47 Not Reportable 11/08/18 11:47 Not Reportable 11/08/18 11:47 Consistent w auto 11/08/18 11:47 Not Reportable 11/08/18 11:47 Plt Clumps, EDTA Not Reportable 11/08/18 11:47 Not Reportable 11/08/18 11:47 Few 11/08/18 11:47 Not Reportable 11/08/18 11:47 Plt Morphology Comment Not Reportable 11/08/18 11:47 RBC Morphology Not Reportable 11/08/18 11:47 Dimorphic RBCs Not Reportable 11/08/18 11:47 Not Reportable 11/08/18 11:47 Not Reportable 11/08/18 11:47 1+ 11/08/18 11:47 Few 11/08/18 11:47 Not Reportable 11/08/18 11:47 Not Reportable 11/08/18 11:47 Not Reportable 11/08/18 11:47 Not Reportable 11/08/18 11:47 Not Reportable 11/08/18 11:47 Not Reportable 11/08/18 11:47 Rare 11/08/18 11:47 Not Reportable 11/08/18 11:47 Not Reportable 11/08/18 11:47 Not Reportable 11/08/18 11:47 Not Reportable 11/08/18 11:47 Not Reportable 11/08/18 11:47 Not Reportable 11/08/18 11:47 Not Reportable 11/08/18 11:47 Few 11/08/18 11:47 Acanthocytes (Spur) Not Reportable 11/08/18 11:47 Rouleaux Not Reportable 11/08/18 11:47 Not Reportable 11/08/18 11:47 Not Reportable 11/08/18 11:47 Not Reportable 11/08/18 11:47 Not Reportable 11/08/18 11:47 Hem Pathologist Commnt No 11/08/18 11:47 PT 16.2 Sec. (12.2-14.9) H 11/16/18 04:59 INR 1.34 (0.87-1.13) H 11/16/18 04:59 APTT 30.4 Sec. (24.2-36.6) 11/08/18 11:47 15.4 Sec. (15.1-19.6) 11/08/18 11:47 POC ABG pH 7.443 (7.35-7.45) 11/11/18 12:23 POC ABG pCO2 34.7 (35-45) L 11/11/18 12:23 POC ABG pO2 57 (80-105) L 11/11/18 12:23 POC ABG HCO3 23.8 (22-26 mml/L) 11/11/18 12:23 POC ABG Total CO2 25 (23-27mmol/L) 11/11/18 12:23 POC ABG O2 Sat 91 11/11/18 12:23 POC ABG Base Excess 0 ((-2) - (+3)mmol/L) 11/11/18 12:23 45 % 11/11/18 12:23 Sodium 146 mmol/L (137-145) H 11/16/18 04:59 Potassium 4.2 mmol/L (3.6-5.0) 11/16/18 04:59 Chloride 110.4 mmol/L (98-107) H 11/16/18 04:59 Carbon Dioxide 23 mmol/L (22-30) 11/16/18 04:59 17 mmol/L 11/16/18 04:59 BUN 11 mg/dL (7-17) 11/16/18 04:59 0.4 mg/dL (0.7-1.2) L 11/16/18 04:59 Estimated GFR > 60 ml/min 11/16/18 04:59 28 % 11/16/18 04:59 Glucose 85 mg/dL (65-100) 11/16/18 04:59 POC Glucose 127 (70-105) H 11/15/18 16:11 Lactic Acid 1.90 mmol/L (0.7-2.0) 11/09/18 13:15 Calcium 8.7 mg/dL (8.4-10.2) 11/16/18 04:59 Phosphorus 3.50 mg/dL (2.5-4.5) 11/14/18 08:51 Magnesium 1.70 mg/dL (1.7-2.3) 11/14/18 08:51 1.10 mg/dL (0.1-1.2) 11/14/18 03:56 AST 57 units/L (5-40) H 11/14/18 03:56 ALT 33 units/L (7-56) 11/14/18 03:56 239 units/L (35-129) H 11/14/18 03:56 44.0 umol/L (25-60) 11/15/18 08:21 27 units/L (30-135) L 11/08/18 11:47 CK-MB (CK-2) < 1.0 ng/mL (0.0-4.0) 11/08/18 11:47 CK-MB (CK-2) Rel Index 3.7 (0-4) 11/08/18 11:47 < 0.010 ng/mL (0.00-0.029) 11/08/18 11:47 0.60 mg/dL (0.00-1.30) 11/09/18 05:41 5.4 g/dL (6.3-8.2) L 11/14/18 03:56 2.8 g/dL (3.9-5) L 11/14/18 03:56 1.1 % 11/14/18 03:56 TSH 2.370 mlU/mL (0.270-4.200) 11/08/18 11:47 Free T4 0.92 ng/dL (0.76-1.46) 11/08/18 11:47 Jihan (Yellow) 11/08/18 12:00 Cloudy (Clear) 11/08/18 12:00 8.0 (5.0-7.0) H 11/08/18 12:00 Ur Specific [place] 1.017 (1.003-1.030) 11/08/18 12:00 <15 mg/dl mg/dL (Negative) 11/08/18 12:00 Neg mg/dL (Negative) 11/08/18 12:00 Neg mg/dL (Negative) 11/08/18 12:00 Neg (Negative) 11/08/18 12:00 Neg (Negative) 11/08/18 12:00 Neg (Negative) 11/08/18 12:00 < 2.0 mg/dL (<2.0) 11/08/18 12:00 Ur Leukocyte Esterase Neg (Negative) 11/08/18 12:00 4.0 /HPF (0.0-6.0) 11/08/18 12:00 2.0 /HPF (0.0-6.0) 11/08/18 12:00 U Epithel Cells (Auto) 1.0 /HPF (0-13.0) 11/08/18 12:00 3+ /HPF (Negative) 11/08/18 12:00 Few /HPF 11/08/18 12:00 Vancomycin Trough 10.6 ug/mL (5.0-20.0) 11/15/18 05:28 Plasma/Serum Alcohol < 0.01 % (0-0.07) 11/08/18 11:47 Active Medications - Current Medications Current Medications: Generic Name Dose Route Start Last Admin Trade Name Freq PRN Reason Stop Dose Admin Albuterol 2.5 mg 11/16/18 13:46 Proventil IH Q6HRT PRN Dyspnea Lipase/Protease/Amylase 1 each 11/08/18 15:[address] 10,500 Unit FEEDTUBE PRN PRN For Clogged Feeding Tube Arformoterol Tartrate 15 mcg 11/16/18 20:00 Brovana Nebu IH Q12HRT HUONG Budesonide 0.5 mg 11/16/18 20:00 Pulmicort IH Q12HRT HUONG Famotidine 20 mg 11/15/18 10:00 11/16/18 09:48 Pepcid PO 20 mg BID HUONG Administration Fluticasone Propionate 50 mcg 11/09/18 10:00 11/16/18 09:45 Flonase NS 50 mcg QDAY HUONG Administration Folic Acid 1 mg 11/09/18 10:00 11/16/18 09:46 Folvite PO 1 mg QDAY HUONG Administration Hydrophilic Ointment 1 applic 11/08/18 11:37 Vaseline Lip Therapy TP Q2HR PRN Dry Lips Lactulose 30 gm 11/08/18 20:00 11/16/18 13:58 Cephulac PO 30 gm TID HUONG Administration Lamotrigine 25 mg 11/08/18 22:00 11/16/18 09:47 Lamictal PO 25 mg BID HUONG Administration Levetiracetam 1,500 mg 11/08/18 22:00 11/16/18 09:47 Keppra PO 1,500 mg BID HUONG Administration Levothyroxine Sodium 75 mcg 11/09/18 06:00 11/16/18 05:34 Synthroid PO 75 mcg DAILY@0600 HUONG Administration Lorazepam 2 mg 11/08/18 14:18 11/14/18 22:15 Ativan IV 2 mg Q1HR PRN Administration CIWA-Ar 8-15 Multi-Ingred Cream/Lotion/Oil/Oint 1 applic 11/08/18 11:37 Artificial Tears Ophth Oint OU Q4HR PRN Dry Eye(s) Multivitamins 1 each 11/09/18 10:00 11/16/18 09:48 Theragran Tab PO 1 each DAILY HUONG Administration Ondansetron HCl 4 mg 11/11/18 13:20 Zofran IV Q8H PRN Nausea And Vomiting Propranolol HCl 40 mg 11/09/18 10:00 11/16/18 09:47 Inderal PO 40 mg QDAY HUONG Administration Rifaximin 550 mg 11/08/18 22:00 11/16/18 09:48 Xifaxan PO 550 mg BID HUONG Administration Simple Syrup 15 ml 11/08/18 15:47 Simple Syrup FEEDTUBE PRN PRN Hypoglycemia Simple Syrup 30 ml 11/08/18 15:47 Simple Syrup FEEDTUBE PRN PRN Hypoglycemia Sodium Bicarbonate 325 mg 11/08/18 15:47 Sodium Bicarbonate FEEDTUBE PRN PRN For Clogged Feeding Tube Sodium Chloride 5 ml 11/08/18 11:37 Nacl 0.9% 500 Ml IV DIRECT PRN ARTERIAL IT INTEGRATION ARCHITECT Sodium Chloride 10 ml 11/08/18 22:00 11/16/18 09:43 Sodium Chloride Flush Syringe 10 Ml IV 10 ml BID HUONG Administration Sodium Chloride 10 ml 11/08/18 13:32 Sodium Chloride Flush Syringe 10 Ml IV PRN PRN LINE FLUSH Spironolactone 100 mg 11/09/18 10:00 11/16/18 09:45 Aldactone PO 100 mg QDAY HUONG Administration Thiamine HCl 100 mg 11/09/18 10:00 11/16/18 09:48 Vitamin B-1 PO 100 mg QDAY HUONG Administration Nutrition/Malnutrition Assess - Dietary Evaluation Nutrition/Malnutrition Findings: Nutrition Notes Start: 11/08/18 15:38 Freq: Status: Active Protocol: Document 11/12/18 16:20 RM (Rec: 11/12/18 16:22 RM [id number]) Nutrition Notes Initial or Follow up Brief Note Current Diet Vital 1.2 at 55 ml/hr [place] Body Weight (kg) 0 Subjective/Other Information Observed Vital 1.2 infusing at goal rate. Nutrition Intervention Follow-Up By: 11/19/18 Additional Comments Follow for TF tolerance
[2018-11-16] MEDS: BROVANA NEBU IH SCH (19:15)
[2018-11-16] MEDS: PULMICORT IH SCH (19:15)
[2018-11-16] MEDS: ATIVAN IV PRN (23:47)
[2018-11-17] MEDS: SYNTHROID PO SCH (05:43)
[2018-11-17] MEDS: SODIUM CHLORIDE FLUSH SYRINGE 10 ML IV SCH ×3 (05:44→22:34)
[2018-11-17] MEDS: CEPHULAC PO SCH ×3 (08:05→20:28)
[2018-11-17] MEDS: BROVANA NEBU IH SCH ×2 (08:38→19:02)
[2018-11-17] MEDS: PULMICORT IH SCH ×2 (08:38→19:02)
[2018-11-17] MEDS: INDERAL PO SCH (10:38)
[2018-11-17] MEDS: FLONASE NS SCH (10:38)
[2018-11-17] MEDS: FOLVITE PO SCH (10:38)
[2018-11-17] MEDS: ALDACTONE PO SCH (10:38)
[2018-11-17] MEDS: THERAGRAN Tab PO SCH (10:39)
[2018-11-17] MEDS: KEPPRA PO SCH ×2 (10:39→22:34)
[2018-11-17] MEDS: LaMICtal PO SCH ×2 (10:39→22:34)
[2018-11-17] MEDS: XIFAXAN PO SCH ×2 (10:39→22:35)
[2018-11-17] MEDS: VITAMIN B-1 PO SCH (10:39)
[2018-11-17] MEDS: PEPCID PO SCH ×2 (10:39→22:34)
--- NOTE | 2018-11-17 15:10 | Progress Note ---
Assessment and Plan Patient awake and resting on Vapotherm, FIO2 50% and O2 saturation running 99%. No acute respiratory distress.Patient afebrile.Blood pressure 102/75. Decrease FIO2 to 40%. - Patient Problems (1) COPD (chronic obstructive pulmonary disease) Current Visit: Yes Status: Acute Qualifiers: Chronic bronchitis type: mixed simple and mucopurulent Plan to address problem: O2 supplementation , Vapotherm FIO2 40%. Albuterol/atrovent aerosol treatments q 6 hours prn for shortness of breath. Brovanna/Budesonide aerosol treatments q 12 hours. Continue Famotidine. SCDs. (2) CAD (coronary artery disease) Current Visit: Yes Status: Acute Qualifiers: Associated angina: without angina Plan to address problem: Management as per cardiology. (3) EtOH dependence Current Visit: Yes Status: Acute Qualifiers: Complication of substance-induced condition: with unspecified complication Plan to address problem: Management as per primary care. (4) Altered mental status Current Visit: Yes Status: Acute Plan to address problem: Management as per primary care and neurology. (5) Hepatic encephalopathy syndrome Current Visit: Yes Status: Acute Plan to address problem: Management as per primary care and gastroenterology. (6) Hypothyroid Current Visit: Yes Status: Acute Qualifiers: Hypothyroidism type: unspecified Qualified Code(s): E03.9 - Hypothyroidism, unspecified Plan to address problem: Patient is on Levothyroxine. Management as per primary care. (7) Respiratory failure Current Visit: Yes Status: Acute Qualifiers: Plan to address problem: O2 supplementation , Vapotherm FIO2 40%. Albuterol/atrovent aerosol treatments q 6 hours Prn for shortness of breath. Brovanna/Budesonide aerosol treatments q 12 hours. Continue Famotidine. SCDs. Subjective Date of service: 11/17/18 Principal diagnosis: Ac hypoxemic resp failure; Hepatic encephalopathy; Coagulopathy; Sz disord Interval history: Patient awake and resting on Vapotherm, FIO2 50% and O2 saturation running 99%. No acute respiratory distress.Patient afebrile.Blood pressure 102/75. Decrease FIO2 to 40%. Objective Vital Signs - 12hr 11/17/18 11/17/18 11/17/18 04:00 05:00 06:00 Temperature 97.5 F L Pulse Rate 62 65 61 Pulse Rate [ Anterior Bilateral Throughout] Pulse Rate [ Right Dorsalis Pedis] Respiratory 16 22 20 Rate Respiratory Rate [Anterior Bilateral Throughout] Blood Pressure 74/29 106/44 102/52 Blood Pressure 99/44 [Right] O2 Sat by Pulse 96 95 96 Oximetry 11/17/18 11/17/18 11/17/18 07:00 08:00 08:33 Temperature 97.7 F 97.7 F Pulse Rate 68 67 Pulse Rate [ Anterior Bilateral Throughout] Pulse Rate [ 62 Right Dorsalis Pedis] Respiratory 13 18 Rate Respiratory Rate [Anterior Bilateral Throughout] Blood Pressure 102/52 101/49 Blood Pressure [Right] O2 Sat by Pulse 94 96 Oximetry 11/17/18 11/17/18 11/17/18 08:38 08:52 09:00 Temperature Pulse Rate 62 Pulse Rate [ 71 65 Anterior Bilateral Throughout] Pulse Rate [ Right Dorsalis Pedis] Respiratory 16 Rate Respiratory 24 18 Rate [Anterior Bilateral Throughout] Blood Pressure 110/59 Blood Pressure [Right] O2 Sat by Pulse 95 96 Oximetry 11/17/18 11/17/18 11/17/18 10:00 10:38 11:00 Temperature Pulse Rate 67 67 60 Pulse Rate [ Anterior Bilateral Throughout] Pulse Rate [ Right Dorsalis Pedis] Respiratory 16 14 Rate Respiratory Rate [Anterior Bilateral Throughout] Blood Pressure 105/60 102/66 102/66 Blood Pressure [Right] O2 Sat by Pulse 95 99 Oximetry 11/17/18 11/17/18 12:00 13:00 Temperature 97.8 F Pulse Rate 62 61 Pulse Rate [ Anterior Bilateral Throughout] Pulse Rate [ 58 L Right Dorsalis Pedis] Respiratory 17 19 Rate Respiratory Rate [Anterior Bilateral Throughout] Blood Pressure 104/56 102/75 Blood Pressure [Right] O2 Sat by Pulse 92 96 Oximetry Constitutional: no acute distress, other (elderly and chronically ill looking CF, normocephalic) Eyes: non-icteric ENT: oropharynx moist, other (extubated) Neck: supple, no lymphadenopathy, no JVD, other (no thyromegaly) Effort: mildly labored Ascultation: Bilateral: rales, rhonchi Percussion: Bilateral: not dull Cardiovascular: regular rate and rhythm Gastrointestinal: normoactive bowel sounds, soft, non-tender, non-distended Integumentary: rash, other (spider naevi) Extremities: no cyanosis, no edema, pulses normal, no ischemia or petechiae Neurologic: non-focal exam (grossly), pupils equal and round, CN II-XII normal, motor strength normal and Psychiatric: mood appropriate, affect normal CBC and BMP: 11/16/18 04:59 11/16/18 04:59 ABG, PT/INR, D-dimer: ABG POC ABG pH 7.443 (7.35-7.45) 11/11/18 12:23 POC ABG pCO2 34.7 (35-45) L 11/11/18 12:23 POC ABG pO2 57 (80-105) L 11/11/18 12:23 POC ABG HCO3 23.8 (22-26 mml/L) 11/11/18 12:23 POC ABG Total CO2 25 (23-27mmol/L) 11/11/18 12:23 POC ABG O2 Sat 91 11/11/18 12:23 PT/INR, D-dimer PT 16.2 Sec. (12.2-14.9) H 11/16/18 04:59 INR 1.34 (0.87-1.13) H 11/16/18 04:59 Abnormal lab findings: Abnormal Labs 11/08/18 11/08/18 11/08/18 11:47 11:47 11:47 WBC 3.4 L Hgb MCH 26 L RDW 21.6 H Lymph % (Auto) Lymph # Seg Neutrophils % Monocytes % (Manual) 13.0 H Basophils % (Manual) 3.0 H Seg Neutrophils # Lymphocytes # (Manual) 0.6 L PT 17.3 H INR 1.45 H POC ABG pH POC ABG pCO2 POC ABG pO2 Sodium Potassium Chloride BUN Creatinine 0.6 L Glucose 130 H POC Glucose Total Bilirubin 1.50 H AST Alkaline Phosphatase 140 H Ammonia Total Creatine Kinase 27 L Total Protein 6.0 L Albumin 3.0 L Urine pH 11/08/18 11/08/18 11/08/18 11:47 12:00 14:01 WBC Hgb MCH RDW Lymph % (Auto) Lymph # Seg Neutrophils % Monocytes % (Manual) Basophils % (Manual) Seg Neutrophils # Lymphocytes # (Manual) PT INR POC ABG pH 7.452 H POC ABG pCO2 32.8 L POC ABG pO2 127 H Sodium Potassium Chloride BUN Creatinine Glucose POC Glucose Total Bilirubin AST Alkaline Phosphatase Ammonia 123.0 H Total Creatine Kinase Total Protein Albumin Urine pH 8.0 H 11/08/18 11/08/18 11/09/18 14:34 15:13 04:31 WBC Hgb MCH RDW Lymph % (Auto) Lymph # Seg Neutrophils % Monocytes % (Manual) Basophils % (Manual) Seg Neutrophils # Lymphocytes # (Manual) PT INR POC ABG pH 7.468 H POC ABG pCO2 POC ABG pO2 76 L 73 L Sodium Potassium Chloride BUN Creatinine Glucose POC Glucose 112 H Total Bilirubin AST Alkaline Phosphatase Ammonia Total Creatine Kinase Total Protein Albumin Urine pH 11/09/18 11/09/18 11/09/18 05:41 05:41 05:41 WBC Hgb MCH 26 L RDW 21.5 H Lymph % (Auto) 3.2 L Lymph # 0.3 L Seg Neutrophils % 89.4 H Monocytes % (Manual) Basophils % (Manual) Seg Neutrophils # 9.6 H Lymphocytes # (Manual) PT INR POC ABG pH POC ABG pCO2 POC ABG pO2 Sodium Potassium Chloride BUN 6 L Creatinine 0.4 L Glucose POC Glucose Total Bilirubin 1.80 H AST Alkaline Phosphatase 153 H Ammonia 75.0 H Total Creatine Kinase Total Protein Albumin 3.2 L Urine pH 11/09/18 11/10/18 11/10/18 11:44 00:11 04:14 WBC Hgb MCH RDW Lymph % (Auto) Lymph # Seg Neutrophils % Monocytes % (Manual) Basophils % (Manual) Seg Neutrophils # Lymphocytes # (Manual) PT INR POC ABG pH POC ABG pCO2 POC ABG pO2 74 L Sodium Potassium Chloride BUN Creatinine Glucose POC Glucose 114 H 134 H Total Bilirubin AST Alkaline Phosphatase Ammonia Total Creatine Kinase Total Protein Albumin Urine pH 11/10/18 11/10/18 11/10/18 08:19 08:19 08:19 WBC 14.8 H Hgb MCH 26 L RDW 21.9 H Lymph % (Auto) Lymph # Seg Neutrophils % Monocytes % (Manual) Basophils % (Manual) Seg Neutrophils # Lymphocytes # (Manual) PT INR POC ABG pH POC ABG pCO2 POC ABG pO2 Sodium Potassium Chloride BUN Creatinine 0.5 L Glucose 117 H POC Glucose Total Bilirubin 1.30 H AST Alkaline Phosphatase 155 H Ammonia 62.0 H Total Creatine Kinase Total Protein 6.0 L Albumin 2.8 L Urine pH 11/11/18 11/11/18 11/11/18 00:02 04:16 04:46 WBC 12.2 H Hgb MCH 26 L RDW 22.4 H Lymph % (Auto) Lymph # Seg Neutrophils % Monocytes % (Manual) Basophils % (Manual) Seg Neutrophils # Lymphocytes # (Manual) PT INR POC ABG pH POC ABG pCO2 POC ABG pO2 58 L Sodium Potassium Chloride BUN Creatinine Glucose POC Glucose 112 H Total Bilirubin AST Alkaline Phosphatase Ammonia Total Creatine Kinase Total Protein Albumin Urine pH 11/11/18 11/11/18 11/11/18 04:46 04:46 05:50 WBC Hgb MCH RDW Lymph % (Auto) Lymph # Seg Neutrophils % Monocytes % (Manual) Basophils % (Manual) Seg Neutrophils # Lymphocytes # (Manual) PT 18.3 H INR 1.56 H POC ABG pH POC ABG pCO2 POC ABG pO2 Sodium Potassium Chloride BUN Creatinine 0.4 L Glucose 119 H POC Glucose 133 H Total Bilirubin AST Alkaline Phosphatase 152 H Ammonia Total Creatine Kinase Total Protein 6.1 L Albumin 2.8 L Urine pH 11/11/18 11/11/18 11/12/18 11:38 12:23 04:23 WBC Hgb 9.8 L MCH 26 L RDW 22.8 H Lymph % (Auto) Lymph # Seg Neutrophils % Monocytes % (Manual) Basophils % (Manual) Seg Neutrophils # Lymphocytes # (Manual) PT INR POC ABG pH POC ABG pCO2 34.7 L POC ABG pO2 57 L Sodium Potassium Chloride BUN Creatinine Glucose POC Glucose 123 H Total Bilirubin AST Alkaline Phosphatase Ammonia Total Creatine Kinase Total Protein Albumin Urine pH 11/12/18 11/12/18 11/13/18 04:23 11:24 04:03 WBC 4.1 L Hgb MCH 26 L RDW 22.7 H Lymph % (Auto) Lymph # Seg Neutrophils % Monocytes % (Manual) Basophils % (Manual) Seg Neutrophils # Lymphocytes # (Manual) PT INR POC ABG pH POC ABG pCO2 POC ABG pO2 Sodium Potassium Chloride 107.4 H BUN Creatinine 0.5 L Glucose 124 H POC Glucose 142 H Total Bilirubin AST Alkaline Phosphatase 163 H Ammonia Total Creatine Kinase Total Protein 5.9 L Albumin 2.8 L Urine pH 11/13/18 11/14/18 11/14/18 04:03 03:56 03:56 WBC Hgb 10.0 L MCH 26 L RDW 23.4 H Lymph % (Auto) Lymph # Seg Neutrophils % Monocytes % (Manual) Basophils % (Manual) Seg Neutrophils # Lymphocytes # (Manual) PT INR POC ABG pH POC ABG pCO2 POC ABG pO2 Sodium Potassium 3.2 L 3.5 L Chloride 109.1 H 107.9 H BUN Creatinine 0.4 L 0.3 L Glucose 109 H 118 H POC Glucose Total Bilirubin AST 59 H 57 H Alkaline Phosphatase 213 H 239 H Ammonia Total Creatine Kinase Total Protein 5.9 L 5.4 L Albumin 2.7 L 2.8 L Urine pH 11/15/18 11/15/18 11/15/18 05:28 05:28 11:34 WBC Hgb 9.8 L MCH 26 L RDW 23.3 H Lymph % (Auto) Lymph # Seg Neutrophils % Monocytes % (Manual) Basophils % (Manual) Seg Neutrophils # Lymphocytes # (Manual) PT INR POC ABG pH POC ABG pCO2 POC ABG pO2 Sodium Potassium Chloride 111.3 H BUN Creatinine 0.3 L Glucose 110 H POC Glucose 122 H Total Bilirubin AST Alkaline Phosphatase Ammonia Total Creatine Kinase Total Protein Albumin Urine pH 11/15/18 11/16/18 11/16/18 16:11 04:59 04:59 WBC Hgb MCH 26 L RDW 23.4 H Lymph % (Auto) Lymph # Seg Neutrophils % Monocytes % (Manual) Basophils % (Manual) Seg Neutrophils # Lymphocytes # (Manual) PT INR POC ABG pH POC ABG pCO2 POC ABG pO2 Sodium 146 H Potassium Chloride 110.4 H BUN Creatinine 0.4 L Glucose POC Glucose 127 H Total Bilirubin AST Alkaline Phosphatase Ammonia Total Creatine Kinase Total Protein Albumin Urine pH 11/16/18 04:59 WBC Hgb MCH RDW Lymph % (Auto) Lymph # Seg Neutrophils % Monocytes % (Manual) Basophils % (Manual) Seg Neutrophils # Lymphocytes # (Manual) PT 16.2 H INR 1.34 H POC ABG pH POC ABG pCO2 POC ABG pO2 Sodium Potassium Chloride BUN Creatinine Glucose POC Glucose Total Bilirubin AST Alkaline Phosphatase Ammonia Total Creatine Kinase Total Protein Albumin Urine pH Allied health notes reviewed: nursing
--- NOTE | 2018-11-17 16:59 | Progress Note ---
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 As per staff, the patient was in her usual state of health at bedtime which was around 2030 hrs. Pt was found to be confused with decreased level of consciousness. EMS notified and upon arrival the patient was found to be in distress. Pt transported to [facility]. Pt seen and evaluated in ED and found to have Encephalopathy, and Acute Hypoxemic Respiratory Failure and was unable to protect her airway. Pt intubated and placed on vent support, admitted to ICU. She improved, extubated 11/11/18. ammonia improved, normalized on Lactulose. She is now awake,alert. She is however on high amount of Oxygen, on high flow nasal canula. patient also has MRSA sputum and VRE Urine. Acute respiratory failure was intubated, on vent, now extubated 11/11 Now on Oxygen by high flow Oxygen continue to wean as tolerated Pulm following Hepatic encephalopathy with hyperammonia Improving, now awake,alert,oriented Continue Lactulose Consulted GI, following Alcoholic cirrhosis of liver GI following MRSA sputum Contact isolation VRE Urine, likely colonization Alcohol use Hypertension Monitor BP COPD Seizure disorder seizure precautions Continue Keppra and Lamictal. 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 still with diarrhea secondary to lactulos. Mental status is unchanged Hospitalist Physical - Physical exam Narrative exam: Gen: Not in acute distress, lying in bed, confused/delirium HEENT: Normocephalic, atraumatic Neck: supple, no JVD Heart: S1 and S2 reg, no murmurs, rubs or gallop Lungs: Clear, no crackles, no wheeze Abd: soft, non tender, non distended, normal BS Ext: No edema, no clubbing, no cyanosis, Neuro: Awake,alert, oriented to person only, moves all ext - Constitutional Vitals: Temp Pulse Resp BP Pulse Ox 97.7 F 64 18 82/47 94 11/17/18 16:00 11/17/18 15:01 11/17/18 15:01 11/17/18 15:01 11/17/18 15:15 General appearance: Present: no acute distress Results - Labs CBC & Chem 7: 11/16/18 04:59 11/16/18 04:59 Labs: Laboratory Last Values WBC 4.8 K/mm3 (4.5-11.0) 11/16/18 04:59 RBC 4.08 M/mm3 (3.65-5.03) 11/16/18 04:59 Hgb 10.4 gm/dl (10.1-14.3) 11/16/18 04:59 Hct 33.4 % (30.3-42.9) 11/16/18 04:59 MCV 82 fl (79-97) 11/16/18 04:59 MCH 26 pg (28-32) L 11/16/18 04:59 MCHC 31 % (30-34) 11/16/18 04:59 RDW 23.4 % (13.2-15.2) H 11/16/18 04:59 Plt Count 235 K/mm3 (140-440) 11/16/18 04:59 Lymph % (Auto) 3.2 % (13.4-35.0) L 11/09/18 05:41 [place] % (Auto) 6.5 % (0.0-7.3) 11/09/18 05:41 Eos % (Auto) 0.3 % (0.0-4.3) 11/09/18 05:41 Baso % (Auto) 0.6 % (0.0-1.8) 11/09/18 05:41 Lymph # 0.3 K/mm3 (1.2-5.4) L 11/09/18 05:41 [place] # 0.7 K/mm3 (0.0-0.8) 11/09/18 05:41 Eos # 0.0 K/mm3 (0.0-0.4) 11/09/18 05:41 Baso # 0.1 K/mm3 (0.0-0.1) 11/09/18 05:41 Add Manual Diff Complete 11/08/18 11:47 Total Counted 100 11/08/18 11:47 Seg Neutrophils % 89.4 % (40.0-70.0) H 11/09/18 05:41 Seg Neuts % (Manual) 65.0 % (40.0-70.0) 11/08/18 11:47 0 % 11/08/18 11:47 17.0 % (13.4-35.0) 11/08/18 11:47 Reactive Lymphs % (Man) 0 % 11/08/18 11:47 13.0 % (0.0-7.3) H 11/08/18 11:47 2.0 % (0.0-4.3) 11/08/18 11:47 3.0 % (0.0-1.8) H 11/08/18 11:47 0 % 11/08/18 11:47 0 % 11/08/18 11:47 0 % 11/08/18 11:47 0 % 11/08/18 11:47 Nucleated RBC % Not Reportable 11/08/18 11:47 Seg Neutrophils # 9.6 K/mm3 (1.8-7.7) H 11/09/18 05:41 Seg Neutrophils # Man 2.2 K/mm3 (1.8-7.7) 11/08/18 11:47 Band Neutrophils # 0.0 K/mm3 11/08/18 11:47 0.6 K/mm3 (1.2-5.4) L 11/08/18 11:47 Abs React Lymphs (Man) 0.0 K/mm3 11/08/18 11:47 0.4 K/mm3 (0.0-0.8) 11/08/18 11:47 0.1 K/mm3 (0.0-0.4) 11/08/18 11:47 0.1 K/mm3 (0.0-0.1) 11/08/18 11:47 0.0 K/mm3 11/08/18 11:47 0.0 K/mm3 11/08/18 11:47 0.0 K/mm3 11/08/18 11:47 Blast Cells # 0.0 K/mm3 11/08/18 11:47 WBC Morphology Not Reportable 11/08/18 11:47 Hypersegmented Neuts Not Reportable 11/08/18 11:47 Hyposegmented Neuts Not Reportable 11/08/18 11:47 Hypogranular Neuts Not Reportable 11/08/18 11:47 Not Reportable 11/08/18 11:47 Not Reportable 11/08/18 11:47 Not Reportable 11/08/18 11:47 Not Reportable 11/08/18 11:47 Not Reportable 11/08/18 11:47 Not Reportable 11/08/18 11:47 Consistent w auto 11/08/18 11:47 Not Reportable 11/08/18 11:47 Plt Clumps, EDTA Not Reportable 11/08/18 11:47 Not Reportable 11/08/18 11:47 Few 11/08/18 11:47 Not Reportable 11/08/18 11:47 Plt Morphology Comment Not Reportable 11/08/18 11:47 RBC Morphology Not Reportable 11/08/18 11:47 Dimorphic RBCs Not Reportable 11/08/18 11:47 Not Reportable 11/08/18 11:47 Not Reportable 11/08/18 11:47 1+ 11/08/18 11:47 Few 11/08/18 11:47 Not Reportable 11/08/18 11:47 Not Reportable 11/08/18 11:47 Not Reportable 11/08/18 11:47 Not Reportable 11/08/18 11:47 Not Reportable 11/08/18 11:47 Not Reportable 11/08/18 11:47 Rare 11/08/18 11:47 Not Reportable 11/08/18 11:47 Not Reportable 11/08/18 11:47 Not Reportable 11/08/18 11:47 Not Reportable 11/08/18 11:47 Not Reportable 11/08/18 11:47 Not Reportable 11/08/18 11:47 Not Reportable 11/08/18 11:47 Few 11/08/18 11:47 Acanthocytes (Spur) Not Reportable 11/08/18 11:47 Rouleaux Not Reportable 11/08/18 11:47 Not Reportable 11/08/18 11:47 Not Reportable 11/08/18 11:47 Not Reportable 11/08/18 11:47 Not Reportable 11/08/18 11:47 Hem Pathologist Commnt No 11/08/18 11:47 PT 16.2 Sec. (12.2-14.9) H 11/16/18 04:59 INR 1.34 (0.87-1.13) H 11/16/18 04:59 APTT 30.4 Sec. (24.2-36.6) 11/08/18 11:47 15.4 Sec. (15.1-19.6) 11/08/18 11:47 POC ABG pH 7.443 (7.35-7.45) 11/11/18 12:23 POC ABG pCO2 34.7 (35-45) L 11/11/18 12:23 POC ABG pO2 57 (80-105) L 11/11/18 12:23 POC ABG HCO3 23.8 (22-26 mml/L) 11/11/18 12:23 POC ABG Total CO2 25 (23-27mmol/L) 11/11/18 12:23 POC ABG O2 Sat 91 11/11/18 12:23 POC ABG Base Excess 0 ((-2) - (+3)mmol/L) 11/11/18 12:23 45 % 11/11/18 12:23 Sodium 146 mmol/L (137-145) H 11/16/18 04:59 Potassium 4.2 mmol/L (3.6-5.0) 11/16/18 04:59 Chloride 110.4 mmol/L (98-107) H 11/16/18 04:59 Carbon Dioxide 23 mmol/L (22-30) 11/16/18 04:59 17 mmol/L 11/16/18 04:59 BUN 11 mg/dL (7-17) 11/16/18 04:59 0.4 mg/dL (0.7-1.2) L 11/16/18 04:59 Estimated GFR > 60 ml/min 11/16/18 04:59 28 % 11/16/18 04:59 Glucose 85 mg/dL (65-100) 11/16/18 04:59 POC Glucose 127 (70-105) H 11/15/18 16:11 Lactic Acid 1.90 mmol/L (0.7-2.0) 11/09/18 13:15 Calcium 8.7 mg/dL (8.4-10.2) 11/16/18 04:59 Phosphorus 3.50 mg/dL (2.5-4.5) 11/14/18 08:51 Magnesium 1.70 mg/dL (1.7-2.3) 11/14/18 08:51 1.10 mg/dL (0.1-1.2) 11/14/18 03:56 AST 57 units/L (5-40) H 11/14/18 03:56 ALT 33 units/L (7-56) 11/14/18 03:56 239 units/L (35-129) H 11/14/18 03:56 44.0 umol/L (25-60) 11/15/18 08:21 27 units/L (30-135) L 11/08/18 11:47 CK-MB (CK-2) < 1.0 ng/mL (0.0-4.0) 11/08/18 11:47 CK-MB (CK-2) Rel Index 3.7 (0-4) 11/08/18 11:47 < 0.010 ng/mL (0.00-0.029) 11/08/18 11:47 0.60 mg/dL (0.00-1.30) 11/09/18 05:41 5.4 g/dL (6.3-8.2) L 11/14/18 03:56 2.8 g/dL (3.9-5) L 11/14/18 03:56 1.1 % 11/14/18 03:56 TSH 2.370 mlU/mL (0.270-4.200) 11/08/18 11:47 Free T4 0.92 ng/dL (0.76-1.46) 11/08/18 11:47 Jihan (Yellow) 11/08/18 12:00 Cloudy (Clear) 11/08/18 12:00 8.0 (5.0-7.0) H 11/08/18 12:00 Ur Specific [place] 1.017 (1.003-1.030) 11/08/18 12:00 <15 mg/dl mg/dL (Negative) 11/08/18 12:00 Neg mg/dL (Negative) 11/08/18 12:00 Neg mg/dL (Negative) 11/08/18 12:00 Neg (Negative) 11/08/18 12:00 Neg (Negative) 11/08/18 12:00 Neg (Negative) 11/08/18 12:00 < 2.0 mg/dL (<2.0) 11/08/18 12:00 Ur Leukocyte Esterase Neg (Negative) 11/08/18 12:00 4.0 /HPF (0.0-6.0) 11/08/18 12:00 2.0 /HPF (0.0-6.0) 11/08/18 12:00 U Epithel Cells (Auto) 1.0 /HPF (0-13.0) 11/08/18 12:00 3+ /HPF (Negative) 11/08/18 12:00 Few /HPF 11/08/18 12:00 Vancomycin Trough 10.6 ug/mL (5.0-20.0) 11/15/18 05:28 Plasma/Serum Alcohol < 0.01 % (0-0.07) 11/08/18 11:47 Active Medications - Current Medications Current Medications: Generic Name Dose Route Start Last Admin Trade Name Freq PRN Reason Stop Dose Admin Albuterol 2.5 mg 11/16/18 13:46 Proventil IH Q6HRT PRN Dyspnea Lipase/Protease/Amylase 1 each 11/08/18 15:[address] 10,500 Unit FEEDTUBE PRN PRN For Clogged Feeding Tube Arformoterol Tartrate 15 mcg 11/16/18 20:00 11/17/18 08:38 Brovana Nebu IH 15 mcg Q12HRT HUONG Administration Budesonide 0.5 mg 11/16/18 20:00 11/17/18 08:38 Pulmicort IH 0.5 mg Q12HRT HUONG Administration Famotidine 20 mg 11/15/18 10:00 11/17/18 10:39 Pepcid PO 20 mg BID HUONG Administration Fluticasone Propionate 50 mcg 11/09/18 10:00 11/17/18 10:38 Flonase NS 50 mcg QDAY HUONG Administration Folic Acid 1 mg 11/09/18 10:00 11/17/18 10:38 Folvite PO 1 mg QDAY HUONG Administration Hydrophilic Ointment 1 applic 11/08/18 11:37 Vaseline Lip Therapy TP Q2HR PRN Dry Lips Lactulose 30 gm 11/08/18 20:00 11/17/18 13:35 Cephulac PO 30 gm TID HUONG Administration Lamotrigine 25 mg 11/08/18 22:00 11/17/18 10:39 Lamictal PO 25 mg BID HUONG Administration Levetiracetam 1,500 mg 11/08/18 22:00 11/17/18 10:39 Keppra PO 1,500 mg BID HUONG Administration Levothyroxine Sodium 75 mcg 11/09/18 06:00 11/17/18 05:43 Synthroid PO 75 mcg DAILY@0600 HUONG Administration Lorazepam 2 mg 11/08/18 14:18 11/16/18 23:47 Ativan IV 2 mg Q1HR PRN Administration CIWA-Ar 8-15 Multi-Ingred Cream/Lotion/Oil/Oint 1 applic 11/08/18 11:37 Artificial Tears Ophth Oint OU Q4HR PRN Dry Eye(s) Multivitamins 1 each 11/09/18 10:00 11/17/18 10:39 Theragran Tab PO 1 each DAILY HUONG Administration Ondansetron HCl 4 mg 11/11/18 13:20 Zofran IV Q8H PRN Nausea And Vomiting Propranolol HCl 40 mg 11/09/18 10:00 11/17/18 10:38 Inderal PO 40 mg QDAY HUONG Administration Rifaximin 550 mg 11/08/18 22:00 11/17/18 10:39 Xifaxan PO 550 mg BID HUONG Administration Simple Syrup 15 ml 11/08/18 15:47 Simple Syrup FEEDTUBE PRN PRN Hypoglycemia Simple Syrup 30 ml 11/08/18 15:47 Simple Syrup FEEDTUBE PRN PRN Hypoglycemia Sodium Bicarbonate 325 mg 11/08/18 15:47 Sodium Bicarbonate FEEDTUBE PRN PRN For Clogged Feeding Tube Sodium Chloride 5 ml 11/08/18 11:37 Nacl 0.9% 500 Ml IV DIRECT PRN [employer] Sodium Chloride 10 ml 11/08/18 22:00 11/17/18 10:39 Sodium Chloride Flush Syringe 10 Ml IV 10 ml BID HUONG Administration Sodium Chloride 10 ml 11/08/18 13:32 Sodium Chloride Flush Syringe 10 Ml IV PRN PRN LINE FLUSH Spironolactone 100 mg 11/09/18 10:00 11/17/18 10:38 Aldactone PO 100 mg QDAY HUONG Administration Thiamine HCl 100 mg 11/09/18 10:00 11/17/18 10:39 Vitamin B-1 PO 100 mg QDAY HUONG Administration Nutrition/Malnutrition Assess - Dietary Evaluation Nutrition/Malnutrition Findings: Nutrition Notes Start: 11/08/18 15:38 Freq: Status: Active Protocol: Document 11/12/18 16:20 RM (Rec: 11/12/18 16:22 RM [email or web address]) Nutrition Notes Initial or Follow up Brief Note Current Diet Vital 1.2 at 55 ml/hr [place] Body Weight (kg) 0 Subjective/Other Information Observed Vital 1.2 infusing at goal rate. Nutrition Intervention Follow-Up By: 11/19/18 Additional Comments Follow for TF tolerance
[2018-11-18] MEDS: SYNTHROID PO SCH (05:20)
[2018-11-18] MEDS: CEPHULAC PO SCH ×3 (08:30→21:35)
[2018-11-18] MEDS: PULMICORT IH SCH ×2 (09:18→20:28)
[2018-11-18] MEDS: BROVANA NEBU IH SCH ×2 (09:18→20:28)
[2018-11-18] MEDS: VITAMIN B-1 PO SCH (09:46)
[2018-11-18] MEDS: THERAGRAN Tab PO SCH (09:46)
[2018-11-18] MEDS: FOLVITE PO SCH (09:46)
[2018-11-18] MEDS: XIFAXAN PO SCH ×2 (09:46→21:35)
[2018-11-18] MEDS: KEPPRA PO SCH ×2 (09:46→21:35)
[2018-11-18] MEDS: INDERAL PO SCH (09:46)
[2018-11-18] MEDS: ALDACTONE PO SCH (09:47)
[2018-11-18] MEDS: PEPCID PO SCH ×2 (09:48→21:35)
[2018-11-18] MEDS: SODIUM CHLORIDE FLUSH SYRINGE 10 ML IV SCH ×2 (09:49→21:36)
[2018-11-18] MEDS: FLONASE NS SCH (09:50)
[2018-11-18] MEDS: LaMICtal PO SCH ×2 (12:20→21:34)
--- NOTE | 2018-11-18 14:48 | Progress Note ---
Assessment and Plan Assessment and plan: 62 YO Female Personal [facility] Resident with ESLD complicated by Cirrhosis and Esophageal Varices, ETOH Dependence, HTN, COPD, Dementia, Seizure Disorder, Hypothyroidism, CVA, OA, Bipolar Disorder, GERD presented to ED for evaluation. As per staff, the patient was in her usual state of health at bedtime which was around 2030 hrs. Pt was found to be confused with decreased level of consciousness. EMS notified and upon arrival the patient was found to be in distress. Pt transported to [facility]. Pt seen and evaluated in ED and found to have Encephalopathy, and Acute Hypoxemic Respiratory Failure and was unable to protect her airway. Pt intubated and placed on vent support, admitted to ICU. She improved, extubated 11/11/18. ammonia improved, normalized on Lactulose. She is now awake,alert. She is however on high amount of Oxygen, on high flow nasal canula. patient also has MRSA sputum and VRE Urine. Acute respiratory failure was intubated, on vent, now extubated 11/11 Now on Oxygen by high flow Oxygen continue to wean as tolerated Pulm following Hepatic encephalopathy with hyperammonia Improving, now awake,alert,oriented Continue Lactulose Consulted GI, following Alcoholic cirrhosis of liver GI following MRSA sputum Contact isolation VRE Urine, likely colonization Alcohol use Hypertension Monitor BP COPD Seizure disorder seizure precautions Continue Keppra and Lamictal. 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 still with diarrhea secondary to lactulos. Mental status is unchanged but per son, appears to be close to her baseline Hospitalist Physical - Physical exam Narrative exam: Gen: Not in acute distress, lying in bed, confused/delirium HEENT: Normocephalic, atraumatic Neck: supple, no JVD Heart: S1 and S2 reg, no murmurs, rubs or gallop Lungs: Clear, no crackles, no wheeze Abd: soft, non tender, non distended, normal BS Ext: No edema, no clubbing, no cyanosis, Neuro: Awake,alert, oriented to person only, moves all ext - Constitutional Vitals: Temp Pulse Resp BP Pulse Ox 98.3 F 68 18 108/56 97 11/18/18 12:00 11/18/18 12:00 11/18/18 12:00 11/18/18 13:00 11/18/18 13:58 General appearance: Present: no acute distress Results - Labs CBC & Chem 7: 11/16/18 04:59 11/19/18 04:36 Labs: Laboratory Last Values WBC 4.8 K/mm3 (4.5-11.0) 11/16/18 04:59 RBC 4.08 M/mm3 (3.65-5.03) 11/16/18 04:59 Hgb 10.4 gm/dl (10.1-14.3) 11/16/18 04:59 Hct 33.4 % (30.3-42.9) 11/16/18 04:59 MCV 82 fl (79-97) 11/16/18 04:59 MCH 26 pg (28-32) L 11/16/18 04:59 MCHC 31 % (30-34) 11/16/18 04:59 RDW 23.4 % (13.2-15.2) H 11/16/18 04:59 Plt Count 235 K/mm3 (140-440) 11/16/18 04:59 Lymph % (Auto) 3.2 % (13.4-35.0) L 11/09/18 05:41 [place] % (Auto) 6.5 % (0.0-7.3) 11/09/18 05:41 Eos % (Auto) 0.3 % (0.0-4.3) 11/09/18 05:41 Baso % (Auto) 0.6 % (0.0-1.8) 11/09/18 05:41 Lymph # 0.3 K/mm3 (1.2-5.4) L 11/09/18 05:41 [place] # 0.7 K/mm3 (0.0-0.8) 11/09/18 05:41 Eos # 0.0 K/mm3 (0.0-0.4) 11/09/18 05:41 Baso # 0.1 K/mm3 (0.0-0.1) 11/09/18 05:41 Add Manual Diff Complete 11/08/18 11:47 Total Counted 100 11/08/18 11:47 Seg Neutrophils % 89.4 % (40.0-70.0) H 11/09/18 05:41 Seg Neuts % (Manual) 65.0 % (40.0-70.0) 11/08/18 11:47 0 % 11/08/18 11:47 17.0 % (13.4-35.0) 11/08/18 11:47 Reactive Lymphs % (Man) 0 % 11/08/18 11:47 13.0 % (0.0-7.3) H 11/08/18 11:47 2.0 % (0.0-4.3) 11/08/18 11:47 3.0 % (0.0-1.8) H 11/08/18 11:47 0 % 11/08/18 11:47 0 % 11/08/18 11:47 0 % 11/08/18 11:47 0 % 11/08/18 11:47 Nucleated RBC % Not Reportable 11/08/18 11:47 Seg Neutrophils # 9.6 K/mm3 (1.8-7.7) H 11/09/18 05:41 Seg Neutrophils # Man 2.2 K/mm3 (1.8-7.7) 11/08/18 11:47 Band Neutrophils # 0.0 K/mm3 11/08/18 11:47 0.6 K/mm3 (1.2-5.4) L 11/08/18 11:47 Abs React Lymphs (Man) 0.0 K/mm3 11/08/18 11:47 0.4 K/mm3 (0.0-0.8) 11/08/18 11:47 0.1 K/mm3 (0.0-0.4) 11/08/18 11:47 0.1 K/mm3 (0.0-0.1) 11/08/18 11:47 0.0 K/mm3 11/08/18 11:47 0.0 K/mm3 11/08/18 11:47 0.0 K/mm3 11/08/18 11:47 Blast Cells # 0.0 K/mm3 11/08/18 11:47 WBC Morphology Not Reportable 11/08/18 11:47 Hypersegmented Neuts Not Reportable 11/08/18 11:47 Hyposegmented Neuts Not Reportable 11/08/18 11:47 Hypogranular Neuts Not Reportable 11/08/18 11:47 Not Reportable 11/08/18 11:47 Not Reportable 11/08/18 11:47 Not Reportable 11/08/18 11:47 Not Reportable 11/08/18 11:47 Not Reportable 11/08/18 11:47 Not Reportable 11/08/18 11:47 Consistent w auto 11/08/18 11:47 Not Reportable 11/08/18 11:47 Plt Clumps, EDTA Not Reportable 11/08/18 11:47 Not Reportable 11/08/18 11:47 Few 11/08/18 11:47 Not Reportable 11/08/18 11:47 Plt Morphology Comment Not Reportable 11/08/18 11:47 RBC Morphology Not Reportable 11/08/18 11:47 Dimorphic RBCs Not Reportable 11/08/18 11:47 Not Reportable 11/08/18 11:47 Not Reportable 11/08/18 11:47 1+ 11/08/18 11:47 Few 11/08/18 11:47 Not Reportable 11/08/18 11:47 Not Reportable 11/08/18 11:47 Not Reportable 11/08/18 11:47 Not Reportable 11/08/18 11:47 Not Reportable 11/08/18 11:47 Not Reportable 11/08/18 11:47 Rare 11/08/18 11:47 Not Reportable 11/08/18 11:47 Not Reportable 11/08/18 11:47 Not Reportable 11/08/18 11:47 Not Reportable 11/08/18 11:47 Not Reportable 11/08/18 11:47 Not Reportable 11/08/18 11:47 Not Reportable 11/08/18 11:47 Few 11/08/18 11:47 Acanthocytes (Spur) Not Reportable 11/08/18 11:47 Rouleaux Not Reportable 11/08/18 11:47 Not Reportable 11/08/18 11:47 Not Reportable 11/08/18 11:47 Not Reportable 11/08/18 11:47 Not Reportable 11/08/18 11:47 Hem Pathologist Commnt No 11/08/18 11:47 PT 16.2 Sec. (12.2-14.9) H 11/16/18 04:59 INR 1.34 (0.87-1.13) H 11/16/18 04:59 APTT 30.4 Sec. (24.2-36.6) 11/08/18 11:47 15.4 Sec. (15.1-19.6) 11/08/18 11:47 POC ABG pH 7.443 (7.35-7.45) 11/11/18 12:23 POC ABG pCO2 34.7 (35-45) L 11/11/18 12:23 POC ABG pO2 57 (80-105) L 11/11/18 12:23 POC ABG HCO3 23.8 (22-26 mml/L) 11/11/18 12:23 POC ABG Total CO2 25 (23-27mmol/L) 11/11/18 12:23 POC ABG O2 Sat 91 11/11/18 12:23 POC ABG Base Excess 0 ((-2) - (+3)mmol/L) 11/11/18 12:23 45 % 11/11/18 12:23 Sodium 146 mmol/L (137-145) H 11/16/18 04:59 Potassium 4.2 mmol/L (3.6-5.0) 11/16/18 04:59 Chloride 110.4 mmol/L (98-107) H 11/16/18 04:59 Carbon Dioxide 23 mmol/L (22-30) 11/16/18 04:59 17 mmol/L 11/16/18 04:59 BUN 11 mg/dL (7-17) 11/16/18 04:59 0.4 mg/dL (0.7-1.2) L 11/16/18 04:59 Estimated GFR > 60 ml/min 11/16/18 04:59 28 % 11/16/18 04:59 Glucose 85 mg/dL (65-100) 11/16/18 04:59 POC Glucose 127 (70-105) H 11/15/18 16:11 Lactic Acid 1.90 mmol/L (0.7-2.0) 11/09/18 13:15 Calcium 8.7 mg/dL (8.4-10.2) 11/16/18 04:59 Phosphorus 3.50 mg/dL (2.5-4.5) 11/14/18 08:51 Magnesium 1.70 mg/dL (1.7-2.3) 11/14/18 08:51 1.10 mg/dL (0.1-1.2) 11/14/18 03:56 AST 57 units/L (5-40) H 11/14/18 03:56 ALT 33 units/L (7-56) 11/14/18 03:56 239 units/L (35-129) H 11/14/18 03:56 44.0 umol/L (25-60) 11/15/18 08:21 27 units/L (30-135) L 11/08/18 11:47 CK-MB (CK-2) < 1.0 ng/mL (0.0-4.0) 11/08/18 11:47 CK-MB (CK-2) Rel Index 3.7 (0-4) 11/08/18 11:47 < 0.010 ng/mL (0.00-0.029) 11/08/18 11:47 0.60 mg/dL (0.00-1.30) 11/09/18 05:41 5.4 g/dL (6.3-8.2) L 11/14/18 03:56 2.8 g/dL (3.9-5) L 11/14/18 03:56 1.1 % 11/14/18 03:56 TSH 2.370 mlU/mL (0.270-4.200) 11/08/18 11:47 Free T4 0.92 ng/dL (0.76-1.46) 11/08/18 11:47 Jihan (Yellow) 11/08/18 12:00 Cloudy (Clear) 11/08/18 12:00 8.0 (5.0-7.0) H 11/08/18 12:00 Ur Specific [place] 1.017 (1.003-1.030) 11/08/18 12:00 <15 mg/dl mg/dL (Negative) 11/08/18 12:00 Neg mg/dL (Negative) 11/08/18 12:00 Neg mg/dL (Negative) 11/08/18 12:00 Neg (Negative) 11/08/18 12:00 Neg (Negative) 11/08/18 12:00 Neg (Negative) 11/08/18 12:00 < 2.0 mg/dL (<2.0) 11/08/18 12:00 Ur Leukocyte Esterase Neg (Negative) 11/08/18 12:00 4.0 /HPF (0.0-6.0) 11/08/18 12:00 2.0 /HPF (0.0-6.0) 11/08/18 12:00 U Epithel Cells (Auto) 1.0 /HPF (0-13.0) 11/08/18 12:00 3+ /HPF (Negative) 11/08/18 12:00 Few /HPF 11/08/18 12:00 Vancomycin Trough 10.6 ug/mL (5.0-20.0) 11/15/18 05:28 Plasma/Serum Alcohol < 0.01 % (0-0.07) 11/08/18 11:47 Active Medications - Current Medications Current Medications: Generic Name Dose Route Start Last Admin Trade Name Freq PRN Reason Stop Dose Admin Albuterol 2.5 mg 11/16/18 13:46 Proventil IH Q6HRT PRN Dyspnea Lipase/Protease/Amylase 1 each 11/08/18 15:[address] 10,500 Unit FEEDTUBE PRN PRN For Clogged Feeding Tube Arformoterol Tartrate 15 mcg 11/16/18 20:00 11/18/18 09:18 Brovana Nebu IH 15 mcg Q12HRT HOUNG Administration Budesonide 0.5 mg 11/16/18 20:00 11/18/18 09:18 Pulmicort IH 0.5 mg Q12HRT HUONG Administration Famotidine 20 mg 11/15/18 10:00 11/18/18 09:48 Pepcid PO 20 mg BID HUONG Administration Fluticasone Propionate 50 mcg 11/09/18 10:00 11/18/18 09:50 Flonase NS 50 mcg QDAY HUONG Administration Folic Acid 1 mg 11/09/18 10:00 11/18/18 09:46 Folvite PO 1 mg QDAY HUONG Administration Hydrophilic Ointment 1 applic 11/08/18 11:37 Vaseline Lip Therapy TP Q2HR PRN Dry Lips Lactulose 30 gm 11/08/18 20:00 11/18/18 14:18 Cephulac PO 30 gm TID HUONG Administration Lamotrigine 25 mg 11/08/18 22:00 07/11/19 12:20 Lamictal PO 25 mg BID HUONG Administration Levetiracetam 1,500 mg 11/08/18 22:00 11/18/18 09:46 Keppra PO 1,500 mg BID HUONG Administration Levothyroxine Sodium 75 mcg 11/09/18 06:00 11/18/18 05:20 Synthroid PO 75 mcg DAILY@0600 HUONG Administration Lorazepam 2 mg 11/08/18 14:18 11/16/18 23:47 Ativan IV 2 mg Q1HR PRN Administration CIWA-Ar 8-15 Multi-Ingred Cream/Lotion/Oil/Oint 1 applic 11/08/18 11:37 Artificial Tears Ophth Oint OU Q4HR PRN Dry Eye(s) Multivitamins 1 each 11/09/18 10:00 11/18/18 09:46 Theragran Tab PO 1 each DAILY HUONG Administration Ondansetron HCl 4 mg 11/11/18 13:20 Zofran IV Q8H PRN Nausea And Vomiting Propranolol HCl 40 mg 11/09/18 10:00 11/18/18 09:46 Inderal PO 40 mg QDAY HUONG Administration Rifaximin 550 mg 11/08/18 22:00 11/18/18 09:46 Xifaxan PO 550 mg BID HUONG Administration Simple Syrup 15 ml 11/08/18 15:47 Simple Syrup FEEDTUBE PRN PRN Hypoglycemia Simple Syrup 30 ml 11/08/18 15:47 Simple Syrup FEEDTUBE PRN PRN Hypoglycemia Sodium Bicarbonate 325 mg 11/08/18 15:47 Sodium Bicarbonate FEEDTUBE PRN PRN For Clogged Feeding Tube Sodium Chloride 5 ml 11/08/18 11:37 Nacl 0.9% 500 Ml IV DIRECT PRN [employer]ERIAL [employer]PER[employer] Sodium Chloride 10 ml 11/08/18 22:00 11/18/18 09:49 Sodium Chloride Flush Syringe 10 Ml IV 10 ml BID HUONG Administration Sodium Chloride 10 ml 11/08/18 13:32 Sodium Chloride Flush Syringe 10 Ml IV PRN PRN LINE FLUSH Spironolactone 100 mg 11/09/18 10:00 11/18/18 09:47 Aldactone PO 100 mg QDAY HUONG Administration Thiamine HCl 100 mg 11/09/18 10:00 11/18/18 09:46 Vitamin B-1 PO 100 mg QDAY HUONG Administration Nutrition/Malnutrition Assess - Dietary Evaluation Nutrition/Malnutrition Findings: Nutrition Notes Start: 11/08/18 15:38 Freq: Status: Active Protocol: Document 11/12/18 16:20 RM (Rec: 11/12/18 16:22 RM [id number]) Nutrition Notes Initial or Follow up Brief Note Current Diet Vital 1.2 at 55 ml/hr [place] Body Weight (kg) 0 Subjective/Other Information Observed Vital 1.2 infusing at goal rate. Nutrition Intervention Follow-Up By: 11/19/18 Additional Comments Follow for TF tolerance
--- NOTE | 2018-11-18 15:37 | Progress Note ---
Assessment and Plan Acute hypoxemic respiratory failure, on mechanical ventilatory support. Decompensated liver cirrhosis. Hepatic encephalopathy. Hyperammonemia. Coagulopathy as a result of the liver cirrhosis. History of alcohol abuse and dependence. Hypothyroidism. History of chronic obstructive lung disease. Coronary artery disease. Seizure disorder. Leukopenia. Hyperbilirubinemia. Hypoalbuminemia. - LTAC evaluation placed - S/P antiiinfective's course per ID rec's - continue supplemental oxygen to keep O2 sats 88-90% (HFNC daytime and BIPAP qhs) - continue bronchodilators (duonebs) with pulmonary hygiene per RT - continue lactulose for hyperammonemia - continue accuchecks with glycemic control per SSI for target blood glucose 140 - 180mg/dL - Agitation management - Prevention of delirium, maintenance of sleep-wake cycle - continue AED's (keppra) for seizure disorder - watch for DT's - continue thiamine and folate supplementation - continue mobility protocols for pressure ulcer prophylaxis - GI prophylaxis is with Pepcid - VTE and Stress ulcer prophylaxis ..... re-evaluate in am & prn CODE STATUS: FULL CODE Subjective Date of service: 11/18/18 Principal diagnosis: Ac hypoxemic resp failure; Hepatic encephalopathy; Coagulopathy; Sz disord Interval history: Patient is seen today for: Acute hypoxemic respiratory failure on MVS; Decompensated liver cirrhosis; Hepatic encephalopathy; Hyperammonemia; Coagulopathy; History of alcohol abuse and dependence; Hypothyroidism; COPD; CAD; Seizure disorder. Seen and examined at bedside; 24hour events reviewed; nursing and respiratory care staff consulted; no adverse overnight events reported to me; resting peacefully in bed; remains on HFNC; denies acute chest pains; slowly weaning on HFNC and down to 45% FiO2 Objective Vital Signs - 12hr 11/18/18 11/18/18 11/18/18 04:00 04:01 05:01 Temperature 96.7 F L Pulse Rate 68 69 85 Pulse Rate [ Anterior Bilateral Throughout] Pulse Rate [ 64 Right Dorsalis Pedis] Respiratory 17 18 20 Rate Respiratory Rate [Anterior Bilateral Throughout] Blood Pressure 99/42 99/42 O2 Sat by Pulse 96 94 95 Oximetry 11/18/18 11/18/18 11/18/18 06:00 07:00 08:00 Temperature 97.2 F L Pulse Rate 64 63 69 Pulse Rate [ Anterior Bilateral Throughout] Pulse Rate [ 69 Right Dorsalis Pedis] Respiratory 14 15 18 Rate Respiratory Rate [Anterior Bilateral Throughout] Blood Pressure 107/62 108/55 O2 Sat by Pulse 98 96 96 Oximetry 11/18/18 11/18/18 11/18/18 08:01 09:01 09:17 Temperature Pulse Rate 67 69 Pulse Rate [ Anterior Bilateral Throughout] Pulse Rate [ Right Dorsalis Pedis] Respiratory 13 14 Rate Respiratory Rate [Anterior Bilateral Throughout] Blood Pressure 127/73 127/73 O2 Sat by Pulse 96 98 Oximetry 11/18/18 11/18/18 11/18/18 09:18 09:33 09:46 Temperature Pulse Rate 67 Pulse Rate [ 67 66 Anterior Bilateral Throughout] Pulse Rate [ Right Dorsalis Pedis] Respiratory Rate Respiratory 20 20 Rate [Anterior Bilateral Throughout] Blood Pressure 126/64 O2 Sat by Pulse Oximetry 11/18/18 11/18/18 11/18/18 09:47 10:01 11:00 Temperature Pulse Rate 67 Pulse Rate [ Anterior Bilateral Throughout] Pulse Rate [ Right Dorsalis Pedis] Respiratory Rate Respiratory Rate [Anterior Bilateral Throughout] Blood Pressure 126/64 105/56 104/56 O2 Sat by Pulse 96 Oximetry 11/18/18 11/18/18 11/18/18 12:00 12:01 13:00 Temperature 98.3 F Pulse Rate 72 Pulse Rate [ Anterior Bilateral Throughout] Pulse Rate [ 68 Right Dorsalis Pedis] Respiratory 18 Rate Respiratory Rate [Anterior Bilateral Throughout] Blood Pressure 88/43 108/56 O2 Sat by Pulse 96 94 Oximetry 11/18/18 11/18/18 13:58 14:00 Temperature Pulse Rate Pulse Rate [ Anterior Bilateral Throughout] Pulse Rate [ Right Dorsalis Pedis] Respiratory Rate Respiratory Rate [Anterior Bilateral Throughout] Blood Pressure 100/56 O2 Sat by Pulse 97 97 Oximetry Constitutional: no acute distress, other (elderly and chronically ill looking CF, normocephalic) Eyes: non-icteric ENT: oropharynx moist, other (extubated) Neck: supple, no lymphadenopathy, no JVD, other (no thyromegaly) Effort: mildly labored Ascultation: Bilateral: rales, rhonchi Percussion: Bilateral: not dull Cardiovascular: regular rate and rhythm Gastrointestinal: normoactive bowel sounds, soft, non-tender, non-distended Integumentary: rash, other (spider naevi) Extremities: no cyanosis, no edema, pulses normal, no ischemia or petechiae Neurologic: non-focal exam (grossly), pupils equal and round, CN II-XII normal, motor strength normal and Psychiatric: mood appropriate, affect normal CBC and BMP: 11/16/18 04:59 11/16/18 04:59 ABG, PT/INR, D-dimer: ABG POC ABG pH 7.443 (7.35-7.45) 11/11/18 12:23 POC ABG pCO2 34.7 (35-45) L 11/11/18 12:23 POC ABG pO2 57 (80-105) L 11/11/18 12:23 POC ABG HCO3 23.8 (22-26 mml/L) 11/11/18 12:23 POC ABG Total CO2 25 (23-27mmol/L) 11/11/18 12:23 POC ABG O2 Sat 91 11/11/18 12:23 PT/INR, D-dimer PT 16.2 Sec. (12.2-14.9) H 11/16/18 04:59 INR 1.34 (0.87-1.13) H 11/16/18 04:59 Abnormal lab findings: Abnormal Labs 11/08/18 11/08/18 11/08/18 11:47 11:47 11:47 WBC 3.4 L Hgb MCH 26 L RDW 21.6 H Lymph % (Auto) Lymph # Seg Neutrophils % Monocytes % (Manual) 13.0 H Basophils % (Manual) 3.0 H Seg Neutrophils # Lymphocytes # (Manual) 0.6 L PT 17.3 H INR 1.45 H POC ABG pH POC ABG pCO2 POC ABG pO2 Sodium Potassium Chloride BUN Creatinine 0.6 L Glucose 130 H POC Glucose Total Bilirubin 1.50 H AST Alkaline Phosphatase 140 H Ammonia Total Creatine Kinase 27 L Total Protein 6.0 L Albumin 3.0 L Urine pH 11/08/18 11/08/18 11/08/18 11:47 12:00 14:01 WBC Hgb MCH RDW Lymph % (Auto) Lymph # Seg Neutrophils % Monocytes % (Manual) Basophils % (Manual) Seg Neutrophils # Lymphocytes # (Manual) PT INR POC ABG pH 7.452 H POC ABG pCO2 32.8 L POC ABG pO2 127 H Sodium Potassium Chloride BUN Creatinine Glucose POC Glucose Total Bilirubin AST Alkaline Phosphatase Ammonia 123.0 H Total Creatine Kinase Total Protein Albumin Urine pH 8.0 H 11/08/18 11/08/18 11/09/18 14:34 15:13 04:31 WBC Hgb MCH RDW Lymph % (Auto) Lymph # Seg Neutrophils % Monocytes % (Manual) Basophils % (Manual) Seg Neutrophils # Lymphocytes # (Manual) PT INR POC ABG pH 7.468 H POC ABG pCO2 POC ABG pO2 76 L 73 L Sodium Potassium Chloride BUN Creatinine Glucose POC Glucose 112 H Total Bilirubin AST Alkaline Phosphatase Ammonia Total Creatine Kinase Total Protein Albumin Urine pH 11/09/18 11/09/18 11/09/18 05:41 05:41 05:41 WBC Hgb MCH 26 L RDW 21.5 H Lymph % (Auto) 3.2 L Lymph # 0.3 L Seg Neutrophils % 89.4 H Monocytes % (Manual) Basophils % (Manual) Seg Neutrophils # 9.6 H Lymphocytes # (Manual) PT INR POC ABG pH POC ABG pCO2 POC ABG pO2 Sodium Potassium Chloride BUN 6 L Creatinine 0.4 L Glucose POC Glucose Total Bilirubin 1.80 H AST Alkaline Phosphatase 153 H Ammonia 75.0 H Total Creatine Kinase Total Protein Albumin 3.2 L Urine pH 11/09/18 11/10/18 11/10/18 11:44 00:11 04:14 WBC Hgb MCH RDW Lymph % (Auto) Lymph # Seg Neutrophils % Monocytes % (Manual) Basophils % (Manual) Seg Neutrophils # Lymphocytes # (Manual) PT INR POC ABG pH POC ABG pCO2 POC ABG pO2 74 L Sodium Potassium Chloride BUN Creatinine Glucose POC Glucose 114 H 134 H Total Bilirubin AST Alkaline Phosphatase Ammonia Total Creatine Kinase Total Protein Albumin Urine pH 11/10/18 11/10/18 11/10/18 08:19 08:19 08:19 WBC 14.8 H Hgb MCH 26 L RDW 21.9 H Lymph % (Auto) Lymph # Seg Neutrophils % Monocytes % (Manual) Basophils % (Manual) Seg Neutrophils # Lymphocytes # (Manual) PT INR POC ABG pH POC ABG pCO2 POC ABG pO2 Sodium Potassium Chloride BUN Creatinine 0.5 L Glucose 117 H POC Glucose Total Bilirubin 1.30 H AST Alkaline Phosphatase 155 H Ammonia 62.0 H Total Creatine Kinase Total Protein 6.0 L Albumin 2.8 L Urine pH 11/11/18 11/11/18 11/11/18 00:02 04:16 04:46 WBC 12.2 H Hgb MCH 26 L RDW 22.4 H Lymph % (Auto) Lymph # Seg Neutrophils % Monocytes % (Manual) Basophils % (Manual) Seg Neutrophils # Lymphocytes # (Manual) PT INR POC ABG pH POC ABG pCO2 POC ABG pO2 58 L Sodium Potassium Chloride BUN Creatinine Glucose POC Glucose 112 H Total Bilirubin AST Alkaline Phosphatase Ammonia Total Creatine Kinase Total Protein Albumin Urine pH 11/11/18 11/11/18 11/11/18 04:46 04:46 05:50 WBC Hgb MCH RDW Lymph % (Auto) Lymph # Seg Neutrophils % Monocytes % (Manual) Basophils % (Manual) Seg Neutrophils # Lymphocytes # (Manual) PT 18.3 H INR 1.56 H POC ABG pH POC ABG pCO2 POC ABG pO2 Sodium Potassium Chloride BUN Creatinine 0.4 L Glucose 119 H POC Glucose 133 H Total Bilirubin AST Alkaline Phosphatase 152 H Ammonia Total Creatine Kinase Total Protein 6.1 L Albumin 2.8 L Urine pH 11/11/18 11/11/18 11/12/18 11:38 12:23 04:23 WBC Hgb 9.8 L MCH 26 L RDW 22.8 H Lymph % (Auto) Lymph # Seg Neutrophils % Monocytes % (Manual) Basophils % (Manual) Seg Neutrophils # Lymphocytes # (Manual) PT INR POC ABG pH POC ABG pCO2 34.7 L POC ABG pO2 57 L Sodium Potassium Chloride BUN Creatinine Glucose POC Glucose 123 H Total Bilirubin AST Alkaline Phosphatase Ammonia Total Creatine Kinase Total Protein Albumin Urine pH 11/12/18 11/12/18 11/13/18 04:23 11:24 04:03 WBC 4.1 L Hgb MCH 26 L RDW 22.7 H Lymph % (Auto) Lymph # Seg Neutrophils % Monocytes % (Manual) Basophils % (Manual) Seg Neutrophils # Lymphocytes # (Manual) PT INR POC ABG pH POC ABG pCO2 POC ABG pO2 Sodium Potassium Chloride 107.4 H BUN Creatinine 0.5 L Glucose 124 H POC Glucose 142 H Total Bilirubin AST Alkaline Phosphatase 163 H Ammonia Total Creatine Kinase Total Protein 5.9 L Albumin 2.8 L Urine pH 11/13/18 11/14/18 11/14/18 04:03 03:56 03:56 WBC Hgb 10.0 L MCH 26 L RDW 23.4 H Lymph % (Auto) Lymph # Seg Neutrophils % Monocytes % (Manual) Basophils % (Manual) Seg Neutrophils # Lymphocytes # (Manual) PT INR POC ABG pH POC ABG pCO2 POC ABG pO2 Sodium Potassium 3.2 L 3.5 L Chloride 109.1 H 107.9 H BUN Creatinine 0.4 L 0.3 L Glucose 109 H 118 H POC Glucose Total Bilirubin AST 59 H 57 H Alkaline Phosphatase 213 H 239 H Ammonia Total Creatine Kinase Total Protein 5.9 L 5.4 L Albumin 2.7 L 2.8 L Urine pH 11/15/18 11/15/18 11/15/18 05:28 05:28 11:34 WBC Hgb 9.8 L MCH 26 L RDW 23.3 H Lymph % (Auto) Lymph # Seg Neutrophils % Monocytes % (Manual) Basophils % (Manual) Seg Neutrophils # Lymphocytes # (Manual) PT INR POC ABG pH POC ABG pCO2 POC ABG pO2 Sodium Potassium Chloride 111.3 H BUN Creatinine 0.3 L Glucose 110 H POC Glucose 122 H Total Bilirubin AST Alkaline Phosphatase Ammonia Total Creatine Kinase Total Protein Albumin Urine pH 11/15/18 11/16/18 11/16/18 16:11 04:59 04:59 WBC Hgb MCH 26 L RDW 23.4 H Lymph % (Auto) Lymph # Seg Neutrophils % Monocytes % (Manual) Basophils % (Manual) Seg Neutrophils # Lymphocytes # (Manual) PT INR POC ABG pH POC ABG pCO2 POC ABG pO2 Sodium 146 H Potassium Chloride 110.4 H BUN Creatinine 0.4 L Glucose POC Glucose 127 H Total Bilirubin AST Alkaline Phosphatase Ammonia Total Creatine Kinase Total Protein Albumin Urine pH 11/16/18 04:59 WBC Hgb MCH RDW Lymph % (Auto) Lymph # Seg Neutrophils % Monocytes % (Manual) Basophils % (Manual) Seg Neutrophils # Lymphocytes # (Manual) PT 16.2 H INR 1.34 H POC ABG pH POC ABG pCO2 POC ABG pO2 Sodium Potassium Chloride BUN Creatinine Glucose POC Glucose Total Bilirubin AST Alkaline Phosphatase Ammonia Total Creatine Kinase Total Protein Albumin Urine pH Allied health notes reviewed: nursing
--- NOTE | 2018-11-18 17:28 | Consultation ---
History of Present Illness Consult date: 11/18/18 Reason for Consult: Altered mental status Chief complaint: Altered mental status History of present illness: Patient is a 62-year-old woman with a history of end-stage liver disease, cirrhosis, esophageal varices, alcohol dependence, hypertension, COPD, bipolar disorder, hypothyroidism, GERD, history of 2 cerebral aneurysm bleeds after which the patient developed dementia and seizures. The patient was initially admitted due to acute hypoxemic respiratory failure, as well as encephalopathy. Patient was intubated after admission. 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 Patient's baseline was discussed with her son over the phone, and he stated that at baseline, due to previous hemorrhagic stroke in the s, patient has baseline of dementia, and has significant difficulty with memory, however he feels that she is currently back to her baseline of mental status. Patient was extubated on 11/21/2018. During this admission, patient has been found to have MRSA in sputum, and has been on antibiotics. Was also found to have VRE in urine, however this was felt to be possible contamination by ID team. Per chart review, patient's mental status has gradually improved over the course of this admission, and GI team also found that the patient has returned to baseline in mental status. Past History Past Medical History: GERD, hypertension, hypothyroidism, liver disease, seizures, stroke, other (as per HPI) Past Surgical History: hysterectomy, Other (Brain surgery for aneurysmal rupture and hemorrhagic CVA in .) Social history: single, other (former ETOH). denies: smoking, alcohol abuse, prescription drug abuse Family history: CAD, hypertension Medications and Allergies Allergies Allergy/AdvReac Type Severity Reaction Status Date / Time No Known Allergies Allergy Verified 09/20/18 17:09 Home Medications Medication Instructions Recorded Confirmed Last Taken Type Folic Acid [Folvite] 1 mg PO QDAY 11/02/13 11/08/18 06/22/17 History Multivitamin [Multi-Vitamin Daily] 1 each PO DAILY 11/02/13 11/08/18 06/22/17 History Aspirin [Aspirin BABY CHEW TAB] 1 tab PO DAILY 05/10/14 11/08/18 06/22/17 History Plavix 75 mg PO DAILY #30 08/16/17 11/08/18 Unknown Rx Thiamine [Vitamin B-1] 100 mg PO QDAY #30 tablet 08/16/17 11/08/18 Unknown Rx lamoTRIgine [LaMICtal] 25 mg PO BID #50 tablet 08/16/17 11/08/18 Unknown Rx Rifaximin [Xifaxan] 550 mg PO BID #60 tablet 07/30/18 11/08/18 Unknown Rx ALBUTEROL NEB's [Proventil 0.083% 2.5 mg IH Q6HRT PRN #90 nebu 08/04/18 11/08/18 Unknown Rx NEBS] Ipratropium/Albuterol Sulfate 1 ampul IH TIDRT #90 ampul.neb 08/04/18 11/08/18 Unknown Rx [DUONEB *Not for PRN Use*] Fluticasone [Flonase] 1 spray NS QDAY 09/22/18 11/08/18 Unknown History Propranolol [Inderal] 40 mg PO QDAY 09/22/18 11/08/18 Unknown History Lactulose [Cephulac] 30 gm PO TID oral.liqd 10/05/18 11/08/18 Unknown Rx Levothyroxine [Synthroid] 75 mcg PO DAILY@0600 tablet 10/05/18 11/08/18 Unknown Rx levETIRAcetam [Keppra] 1,500 mg PO BID oral.liqd 10/05/18 11/08/18 Unknown Rx Famotidine [Pepcid] 40 mg PO QHS 11/08/18 11/08/18 Unknown History Spironolactone [Aldactone] 100 mg PO QDAY 11/08/18 11/08/18 Unknown History Active Meds: Active Medications Albuterol (Proventil) 2.5 mg IH Q6HRT PRN PRN Reason: Dyspnea Lipase/Protease/Amylase (Sina Mix 10,500 Unit) 1 each FEEDTUBE PRN PRN PRN Reason: For Clogged Feeding Tube Arformoterol Tartrate (Brovana Nebu) 15 mcg IH Q12HRT [facility] Last Admin: 11/18/18 09:18 Dose: 15 mcg Documented by: Budesonide (Pulmicort) 0.5 mg IH Q12HRT [facility] Last Admin: 11/18/18 09:18 Dose: 0.5 mg Documented by: Famotidine (Pepcid) 20 mg PO BID [facility] Last Admin: 11/18/18 09:48 Dose: 20 mg Documented by: Fluticasone Propionate (Flonase) 50 mcg NS QDAY [facility] Last Admin: 11/18/18 09:50 Dose: 50 mcg Documented by: Folic Acid (Folvite) 1 mg PO QDAY [facility] Last Admin: 11/18/18 09:46 Dose: 1 mg Documented by: Hydrophilic Ointment (Vaseline Lip Therapy) 1 applic TP Q2HR PRN PRN Reason: Dry Lips Lactulose (Cephulac) 30 gm PO TID [facility] Last Admin: 11/18/18 14:18 Dose: 30 gm Documented by: Lamotrigine (Lamictal) 25 mg PO BID [facility] Last Admin: 11/18/18 12:20 Dose: 25 mg Documented by: Levetiracetam (Keppra) 1,500 mg PO BID [facility] Last Admin: 11/18/18 09:46 Dose: 1,500 mg Documented by: Levothyroxine Sodium (Synthroid) 75 mcg PO DAILY@0600 [facility] Last Admin: 11/18/18 05:20 Dose: 75 mcg Documented by: Lorazepam (Ativan) 2 mg IV Q1HR PRN PRN Reason: CIWA-Ar 8-15 Last Admin: 11/16/18 23:47 Dose: 2 mg Documented by: Multi-Ingred Cream/Lotion/Oil/Oint (Artificial Tears Ophth Oint) 1 applic OU Q4HR PRN PRN Reason: Dry Eye(s) Multivitamins (Theragran Tab) 1 each PO DAILY [facility] Last Admin: 11/18/18 09:46 Dose: 1 each Documented by: Ondansetron HCl (Zofran) 4 mg IV Q8H PRN PRN Reason: Nausea And Vomiting Propranolol HCl (Inderal) 40 mg PO QDAY [facility] Last Admin: 11/18/18 09:46 Dose: 40 mg Documented by: Rifaximin (Xifaxan) 550 mg PO BID [facility] Last Admin: 11/18/18 09:46 Dose: 550 mg Documented by: Simple Syrup (Simple Syrup) 15 ml FEEDTUBE PRN PRN PRN Reason: Hypoglycemia Simple Syrup (Simple Syrup) 30 ml FEEDTUBE PRN PRN PRN Reason: Hypoglycemia Sodium Bicarbonate (Sodium Bicarbonate) 325 mg FEEDTUBE PRN PRN PRN Reason: For Clogged Feeding Tube Sodium Chloride (Nacl 0.9% 500 Ml) 5 ml IV DIRECT PRN PRN Reason: ARTERIAL CASE MONITOR Sodium Chloride (Sodium Chloride Flush Syringe 10 Ml) 10 ml IV BID [facility] Last Admin: 11/18/18 09:49 Dose: 10 ml Documented by: Sodium Chloride (Sodium Chloride Flush Syringe 10 Ml) 10 ml IV PRN PRN PRN Reason: LINE FLUSH Spironolactone (Aldactone) 100 mg PO QDAY [facility] Last Admin: 11/18/18 09:47 Dose: 100 mg Documented by: Thiamine HCl (Vitamin B-1) 100 mg PO QDAY [facility] Last Admin: 11/18/18 09:46 Dose: 100 mg Documented by: Review of Systems All systems: negative Respiratory: shortness of breath Neurological: confusion Physical Examination - Vital Signs Vital Signs: Vital Signs Pulse Resp BP Pulse Ox 58 L 15 97/50 98 11/08/18 11:23 11/08/18 11:23 11/08/18 11:23 11/08/18 11:23 - Constitutional General appearance: comfortable - EENT EENT: Present: ATNC, PERRL, mucous membranes moist - Respiratory Respiratory: Present: decreased breath sounds - Cardiovascular Cardiovascular: Present: regular rate, normal S1, normal S2 Extremities: Present: no peripheral edema bilatateraly, no clubbing, cyanosis - Gastrointestinal Gastrointestinal: Present: normoactive bowel sounds, soft, non-tender - Integumentary Integumentary: Present: normal - Neurologic Cranial nerve examination: PERRL, EOMI, VFF, V1/V2/V3 grossly intact, face symmetric, tongue midline, intact shoulder shrug Speech examination: intact Sensorimotor examination: intact Detailed motor examination: full strength in all erlin Motor examination - right side: 5/5: biceps, triceps, 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 Follows complex commands intermittently. (This is baseline per patient' son.) Results - Laboratory Findings CBC and BMP: 11/16/18 04:59 11/16/18 04:59 Abnormal Lab Findings: Abnormal Labs 11/08/18 11/08/18 11/08/18 11:47 11:47 11:47 WBC 3.4 L Hgb MCH 26 L RDW 21.6 H Lymph % (Auto) Lymph # Seg Neutrophils % Monocytes % (Manual) 13.0 H Basophils % (Manual) 3.0 H Seg Neutrophils # Lymphocytes # (Manual) 0.6 L PT 17.3 H INR 1.45 H POC ABG pH POC ABG pCO2 POC ABG pO2 Sodium Potassium Chloride BUN Creatinine 0.6 L Glucose 130 H POC Glucose Total Bilirubin 1.50 H AST Alkaline Phosphatase 140 H Ammonia Total Creatine Kinase 27 L Total Protein 6.0 L Albumin 3.0 L Urine pH 11/08/18 11/08/18 11/08/18 11:47 12:00 14:01 WBC Hgb MCH RDW Lymph % (Auto) Lymph # Seg Neutrophils % Monocytes % (Manual) Basophils % (Manual) Seg Neutrophils # Lymphocytes # (Manual) PT INR POC ABG pH 7.452 H POC ABG pCO2 32.8 L POC ABG pO2 127 H Sodium Potassium Chloride BUN Creatinine Glucose POC Glucose Total Bilirubin AST Alkaline Phosphatase Ammonia 123.0 H Total Creatine Kinase Total Protein Albumin Urine pH 8.0 H 11/08/18 11/08/18 11/09/18 14:34 15:13 04:31 WBC Hgb MCH RDW Lymph % (Auto) Lymph # Seg Neutrophils % Monocytes % (Manual) Basophils % (Manual) Seg Neutrophils # Lymphocytes # (Manual) PT INR POC ABG pH 7.468 H POC ABG pCO2 POC ABG pO2 76 L 73 L Sodium Potassium Chloride BUN Creatinine Glucose POC Glucose 112 H Total Bilirubin AST Alkaline Phosphatase Ammonia Total Creatine Kinase Total Protein Albumin Urine pH 11/09/18 11/09/18 11/09/18 05:41 05:41 05:41 WBC Hgb MCH 26 L RDW 21.5 H Lymph % (Auto) 3.2 L Lymph # 0.3 L Seg Neutrophils % 89.4 H Monocytes % (Manual) Basophils % (Manual) Seg Neutrophils # 9.6 H Lymphocytes # (Manual) PT INR POC ABG pH POC ABG pCO2 POC ABG pO2 Sodium Potassium Chloride BUN 6 L Creatinine 0.4 L Glucose POC Glucose Total Bilirubin 1.80 H AST Alkaline Phosphatase 153 H Ammonia 75.0 H Total Creatine Kinase Total Protein Albumin 3.2 L Urine pH 11/09/18 11/10/18 11/10/18 11:44 00:11 04:14 WBC Hgb MCH RDW Lymph % (Auto) Lymph # Seg Neutrophils % Monocytes % (Manual) Basophils % (Manual) Seg Neutrophils # Lymphocytes # (Manual) PT INR POC ABG pH POC ABG pCO2 POC ABG pO2 74 L Sodium Potassium Chloride BUN Creatinine Glucose POC Glucose 114 H 134 H Total Bilirubin AST Alkaline Phosphatase Ammonia Total Creatine Kinase Total Protein Albumin Urine pH 11/10/18 11/10/18 11/10/18 08:19 08:19 08:19 WBC 14.8 H Hgb MCH 26 L RDW 21.9 H Lymph % (Auto) Lymph # Seg Neutrophils % Monocytes % (Manual) Basophils % (Manual) Seg Neutrophils # Lymphocytes # (Manual) PT INR POC ABG pH POC ABG pCO2 POC ABG pO2 Sodium Potassium Chloride BUN Creatinine 0.5 L Glucose 117 H POC Glucose Total Bilirubin 1.30 H AST Alkaline Phosphatase 155 H Ammonia 62.0 H Total Creatine Kinase Total Protein 6.0 L Albumin 2.8 L Urine pH 11/11/18 11/11/18 11/11/18 00:02 04:16 04:46 WBC 12.2 H Hgb MCH 26 L RDW 22.4 H Lymph % (Auto) Lymph # Seg Neutrophils % Monocytes % (Manual) Basophils % (Manual) Seg Neutrophils # Lymphocytes # (Manual) PT INR POC ABG pH POC ABG pCO2 POC ABG pO2 58 L Sodium Potassium Chloride BUN Creatinine Glucose POC Glucose 112 H Total Bilirubin AST Alkaline Phosphatase Ammonia Total Creatine Kinase Total Protein Albumin Urine pH 11/11/18 11/11/18 11/11/18 04:46 04:46 05:50 WBC Hgb MCH RDW Lymph % (Auto) Lymph # Seg Neutrophils % Monocytes % (Manual) Basophils % (Manual) Seg Neutrophils # Lymphocytes # (Manual) PT 18.3 H INR 1.56 H POC ABG pH POC ABG pCO2 POC ABG pO2 Sodium Potassium Chloride BUN Creatinine 0.4 L Glucose 119 H POC Glucose 133 H Total Bilirubin AST Alkaline Phosphatase 152 H Ammonia Total Creatine Kinase Total Protein 6.1 L Albumin 2.8 L Urine pH 11/11/18 11/11/18 11/12/18 11:38 12:23 04:23 WBC Hgb 9.8 L MCH 26 L RDW 22.8 H Lymph % (Auto) Lymph # Seg Neutrophils % Monocytes % (Manual) Basophils % (Manual) Seg Neutrophils # Lymphocytes # (Manual) PT INR POC ABG pH POC ABG pCO2 34.7 L POC ABG pO2 57 L Sodium Potassium Chloride BUN Creatinine Glucose POC Glucose 123 H Total Bilirubin AST Alkaline Phosphatase Ammonia Total Creatine Kinase Total Protein Albumin Urine pH 11/12/18 11/12/18 11/13/18 04:23 11:24 04:03 WBC 4.1 L Hgb MCH 26 L RDW 22.7 H Lymph % (Auto) Lymph # Seg Neutrophils % Monocytes % (Manual) Basophils % (Manual) Seg Neutrophils # Lymphocytes # (Manual) PT INR POC ABG pH POC ABG pCO2 POC ABG pO2 Sodium Potassium Chloride 107.4 H BUN Creatinine 0.5 L Glucose 124 H POC Glucose 142 H Total Bilirubin AST Alkaline Phosphatase 163 H Ammonia Total Creatine Kinase Total Protein 5.9 L Albumin 2.8 L Urine pH 11/13/18 11/14/18 11/14/18 04:03 03:56 03:56 WBC Hgb 10.0 L MCH 26 L RDW 23.4 H Lymph % (Auto) Lymph # Seg Neutrophils % Monocytes % (Manual) Basophils % (Manual) Seg Neutrophils # Lymphocytes # (Manual) PT INR POC ABG pH POC ABG pCO2 POC ABG pO2 Sodium Potassium 3.2 L 3.5 L Chloride 109.1 H 107.9 H BUN Creatinine 0.4 L 0.3 L Glucose 109 H 118 H POC Glucose Total Bilirubin AST 59 H 57 H Alkaline Phosphatase 213 H 239 H Ammonia Total Creatine Kinase Total Protein 5.9 L 5.4 L Albumin 2.7 L 2.8 L Urine pH 11/15/18 11/15/18 11/15/18 05:28 05:28 11:34 WBC Hgb 9.8 L MCH 26 L RDW 23.3 H Lymph % (Auto) Lymph # Seg Neutrophils % Monocytes % (Manual) Basophils % (Manual) Seg Neutrophils # Lymphocytes # (Manual) PT INR POC ABG pH POC ABG pCO2 POC ABG pO2 Sodium Potassium Chloride 111.3 H BUN Creatinine 0.3 L Glucose 110 H POC Glucose 122 H Total Bilirubin AST Alkaline Phosphatase Ammonia Total Creatine Kinase Total Protein Albumin Urine pH 11/15/18 11/16/18 11/16/18 16:11 04:59 04:59 WBC Hgb MCH 26 L RDW 23.4 H Lymph % (Auto) Lymph # Seg Neutrophils % Monocytes % (Manual) Basophils % (Manual) Seg Neutrophils # Lymphocytes # (Manual) PT INR POC ABG pH POC ABG pCO2 POC ABG pO2 Sodium 146 H Potassium Chloride 110.4 H BUN Creatinine 0.4 L Glucose POC Glucose 127 H Total Bilirubin AST Alkaline Phosphatase Ammonia Total Creatine Kinase Total Protein Albumin Urine pH 11/16/18 04:59 WBC Hgb MCH RDW Lymph % (Auto) Lymph # Seg Neutrophils % Monocytes % (Manual) Basophils % (Manual) Seg Neutrophils # Lymphocytes # (Manual) PT 16.2 H INR 1.34 H POC ABG pH POC ABG pCO2 POC ABG pO2 Sodium Potassium Chloride BUN Creatinine Glucose POC Glucose Total Bilirubin AST Alkaline Phosphatase Ammonia Total Creatine Kinase Total Protein Albumin Urine pH Assessment and Plan Patient is a 62-year-old woman with a history of end-stage liver disease, cirrhosis, esophageal varices, alcohol dependence, hypertension, COPD, bipolar disorder, hypothyroidism, GERD, history of 2 cerebral aneurysm bleeds after which the patient developed dementia and seizures. Patient was admitted with acute hypoxemic respiratory failure and encephalopathy. Patient was extubated on 11/21/2018, and has had notable improvement in mental status since then. Per patient's son, she is now back to her baseline mental status. Plan: 1. Altered mental status: This was likely due to acute hypoxemic respiratory failure which was present on admission. Another contributing factor would be hepatic encephalopathy, as patient has a history of end-stage liver disease. Patient was also found to have MRSA in sputum, and also had elevated white blood cell count during this admission. Of note, respiratory failure has improved since admission, as has the patient's hepatic status. In discussion with the patient's son, is felt that the patient's mental status has now returned to baseline, which is one of dementia and has been this way since she had a cerebral aneurysmal rupture in the . 2. History of seizures: continue current anti-seizure medications. No seizure- like activity noted. 3. Hepatic encephalopathy: continue to treat per primary and GI teams. Thank you for allowing me to take part in the care of this patient. - As patient has returned to baseline mental status (per son), will sign off at this time. Please call with any questions. - Patient Problems (1) Dementia Current Visit: Yes Status: Acute (2) Altered mental status Current Visit: Yes Status: Acute (3) Hepatic encephalopathy syndrome Current Visit: Yes Status: Acute (4) Seizure disorder Current Visit: Yes Status: Acute
[2018-11-18] MEDS: ATIVAN IV PRN (23:18)
[2018-11-19] MEDS: SYNTHROID PO SCH (05:28)
[2018-11-19 05:55] LABS: Alanine Aminotransferase 41 units/L (7-56); BUN/Creatinine Ratio 18; Blood Urea Nitrogen 7 mg/dL (7-17); Hemolysis Index 10
[2018-11-19] MEDS: CEPHULAC PO SCH ×3 (09:06→21:45)
[2018-11-19] MEDS: BROVANA NEBU IH SCH ×2 (09:13→20:58)
[2018-11-19] MEDS: PULMICORT IH SCH ×2 (09:13→20:58)
[2018-11-19] MEDS: KEPPRA PO SCH ×2 (11:53→21:46)
[2018-11-19] MEDS: VITAMIN B-1 PO SCH (11:53)
[2018-11-19] MEDS: FLONASE NS SCH (11:53)
[2018-11-19] MEDS: XIFAXAN PO SCH ×2 (11:53→21:46)
[2018-11-19] MEDS: PEPCID PO SCH ×2 (11:53→21:46)
[2018-11-19] MEDS: THERAGRAN Tab PO SCH (11:54)
[2018-11-19] MEDS: FOLVITE PO SCH (11:54)
[2018-11-19] MEDS: LaMICtal PO SCH ×2 (11:59→21:55)
[2018-11-19] MEDS: INDERAL PO SCH (12:00)
[2018-11-19] MEDS: ALDACTONE PO SCH (12:01)
[2018-11-19] MEDS: SODIUM CHLORIDE FLUSH SYRINGE 10 ML IV SCH ×2 (12:01→21:46)
--- NOTE | 2018-11-19 13:57 | Progress Note ---
Assessment and Plan Acute hypoxemic respiratory failure, on mechanical ventilatory support. Decompensated liver cirrhosis. Hepatic encephalopathy. Hyperammonemia. Coagulopathy as a result of the liver cirrhosis. History of alcohol abuse and dependence. Hypothyroidism. History of chronic obstructive lung disease. Coronary artery disease. Seizure disorder. Leukopenia. Hyperbilirubinemia. Hypoalbuminemia. - LTAC evaluation placed - S/P antiiinfective's course per ID rec's - continue supplemental oxygen to keep O2 sats 88-90% (HFNC daytime and BIPAP qhs) - continue bronchodilators (duonebs) with pulmonary hygiene per RT - continue lactulose for hyperammonemia - continue accuchecks with glycemic control per SSI for target blood glucose 140 - 180mg/dL - Agitation management - Prevention of delirium, maintenance of sleep-wake cycle - continue AED's (keppra) for seizure disorder - watch for DT's - continue thiamine and folate supplementation - continue mobility protocols for pressure ulcer prophylaxis - GI prophylaxis is with Pepcid - VTE and Stress ulcer prophylaxis ..... re-evaluate in am & prn CODE STATUS: FULL CODE Subjective Date of service: 11/19/18 Principal diagnosis: Ac hypoxemic resp failure; Hepatic encephalopathy; Coagulopathy; Sz disord Interval history: Patient is seen today for: Acute hypoxemic respiratory failure on MVS; Decompensated liver cirrhosis; Hepatic encephalopathy; Hyperammonemia; Coagulopathy; History of alcohol abuse and dependence; Hypothyroidism; COPD; CAD; Seizure disorder. Seen and examined at bedside; 24hour events reviewed; nursing and respiratory care staff consulted; no adverse overnight events reported to me; resting peacefully in bed; Objective Vital Signs - 12hr 11/19/18 11/19/18 11/19/18 02:42 04:00 08:00 Pulse Rate 80 80 Pulse Rate [ Anterior Bilateral Throughout] Respiratory Rate [Anterior Bilateral Throughout] Blood Pressure O2 Sat by Pulse 90 Oximetry 11/19/18 11/19/18 11/19/18 09:13 09:23 12:00 Pulse Rate Pulse Rate [ 66 65 Anterior Bilateral Throughout] Respiratory 18 18 Rate [Anterior Bilateral Throughout] Blood Pressure 118/68 O2 Sat by Pulse 95 Oximetry 11/19/18 11/19/18 12:01 13:44 Pulse Rate Pulse Rate [ Anterior Bilateral Throughout] Respiratory Rate [Anterior Bilateral Throughout] Blood Pressure 118/68 O2 Sat by Pulse 92 Oximetry Constitutional: no acute distress, other (elderly and chronically ill looking CF, normocephalic) Eyes: non-icteric ENT: oropharynx moist, other (extubated) Neck: supple, no lymphadenopathy, no JVD, other (no thyromegaly) Effort: mildly labored Ascultation: Bilateral: rales, rhonchi Percussion: Bilateral: not dull Cardiovascular: regular rate and rhythm Gastrointestinal: normoactive bowel sounds, soft, non-tender, non-distended Integumentary: rash, other (spider naevi) Extremities: no cyanosis, no edema, pulses normal, no ischemia or petechiae Neurologic: non-focal exam (grossly), pupils equal and round, CN II-XII normal, motor strength normal and Psychiatric: mood appropriate, affect normal CBC and BMP: 11/16/18 04:59 11/19/18 04:36 ABG, PT/INR, D-dimer: ABG POC ABG pH 7.443 (7.35-7.45) 11/11/18 12:23 POC ABG pCO2 34.7 (35-45) L 11/11/18 12:23 POC ABG pO2 57 (80-105) L 11/11/18 12:23 POC ABG HCO3 23.8 (22-26 mml/L) 11/11/18 12:23 POC ABG Total CO2 25 (23-27mmol/L) 11/11/18 12:23 POC ABG O2 Sat 91 11/11/18 12:23 PT/INR, D-dimer PT 16.2 Sec. (12.2-14.9) H 11/16/18 04:59 INR 1.34 (0.87-1.13) H 11/16/18 04:59 Abnormal lab findings: Abnormal Labs 11/08/18 11/08/18 11/08/18 11:47 11:47 11:47 WBC 3.4 L Hgb MCH 26 L RDW 21.6 H Lymph % (Auto) Lymph # Seg Neutrophils % Monocytes % (Manual) 13.0 H Basophils % (Manual) 3.0 H Seg Neutrophils # Lymphocytes # (Manual) 0.6 L PT 17.3 H INR 1.45 H POC ABG pH POC ABG pCO2 POC ABG pO2 Sodium Potassium Chloride BUN Creatinine 0.6 L Glucose 130 H POC Glucose Total Bilirubin 1.50 H AST Alkaline Phosphatase 140 H Ammonia Total Creatine Kinase 27 L Total Protein 6.0 L Albumin 3.0 L Urine pH 11/08/18 11/08/18 11/08/18 11:47 12:00 14:01 WBC Hgb MCH RDW Lymph % (Auto) Lymph # Seg Neutrophils % Monocytes % (Manual) Basophils % (Manual) Seg Neutrophils # Lymphocytes # (Manual) PT INR POC ABG pH 7.452 H POC ABG pCO2 32.8 L POC ABG pO2 127 H Sodium Potassium Chloride BUN Creatinine Glucose POC Glucose Total Bilirubin AST Alkaline Phosphatase Ammonia 123.0 H Total Creatine Kinase Total Protein Albumin Urine pH 8.0 H 11/08/18 11/08/18 11/09/18 14:34 15:13 04:31 WBC Hgb MCH RDW Lymph % (Auto) Lymph # Seg Neutrophils % Monocytes % (Manual) Basophils % (Manual) Seg Neutrophils # Lymphocytes # (Manual) PT INR POC ABG pH 7.468 H POC ABG pCO2 POC ABG pO2 76 L 73 L Sodium Potassium Chloride BUN Creatinine Glucose POC Glucose 112 H Total Bilirubin AST Alkaline Phosphatase Ammonia Total Creatine Kinase Total Protein Albumin Urine pH 11/09/18 11/09/18 11/09/18 05:41 05:41 05:41 WBC Hgb MCH 26 L RDW 21.5 H Lymph % (Auto) 3.2 L Lymph # 0.3 L Seg Neutrophils % 89.4 H Monocytes % (Manual) Basophils % (Manual) Seg Neutrophils # 9.6 H Lymphocytes # (Manual) PT INR POC ABG pH POC ABG pCO2 POC ABG pO2 Sodium Potassium Chloride BUN 6 L Creatinine 0.4 L Glucose POC Glucose Total Bilirubin 1.80 H AST Alkaline Phosphatase 153 H Ammonia 75.0 H Total Creatine Kinase Total Protein Albumin 3.2 L Urine pH 11/09/18 11/10/18 11/10/18 11:44 00:11 04:14 WBC Hgb MCH RDW Lymph % (Auto) Lymph # Seg Neutrophils % Monocytes % (Manual) Basophils % (Manual) Seg Neutrophils # Lymphocytes # (Manual) PT INR POC ABG pH POC ABG pCO2 POC ABG pO2 74 L Sodium Potassium Chloride BUN Creatinine Glucose POC Glucose 114 H 134 H Total Bilirubin AST Alkaline Phosphatase Ammonia Total Creatine Kinase Total Protein Albumin Urine pH 11/10/18 11/10/1819 08:19 08:19 08:19 WBC 14.8 H Hgb MCH 26 L RDW 21.9 H Lymph % (Auto) Lymph # Seg Neutrophils % Monocytes % (Manual) Basophils % (Manual) Seg Neutrophils # Lymphocytes # (Manual) PT INR POC ABG pH POC ABG pCO2 POC ABG pO2 Sodium Potassium Chloride BUN Creatinine 0.5 L Glucose 117 H POC Glucose Total Bilirubin 1.30 H AST Alkaline Phosphatase 155 H Ammonia 62.0 H Total Creatine Kinase Total Protein 6.0 L Albumin 2.8 L Urine pH 11/11/18 11/11/18 11/11/18 00:02 04:16 04:46 WBC 12.2 H Hgb MCH 26 L RDW 22.4 H Lymph % (Auto) Lymph # Seg Neutrophils % Monocytes % (Manual) Basophils % (Manual) Seg Neutrophils # Lymphocytes # (Manual) PT INR POC ABG pH POC ABG pCO2 POC ABG pO2 58 L Sodium Potassium Chloride BUN Creatinine Glucose POC Glucose 112 H Total Bilirubin AST Alkaline Phosphatase Ammonia Total Creatine Kinase Total Protein Albumin Urine pH 11/11/18 11/11/18 11/11/18 04:46 04:46 05:50 WBC Hgb MCH RDW Lymph % (Auto) Lymph # Seg Neutrophils % Monocytes % (Manual) Basophils % (Manual) Seg Neutrophils # Lymphocytes # (Manual) PT 18.3 H INR 1.56 H POC ABG pH POC ABG pCO2 POC ABG pO2 Sodium Potassium Chloride BUN Creatinine 0.4 L Glucose 119 H POC Glucose 133 H Total Bilirubin AST Alkaline Phosphatase 152 H Ammonia Total Creatine Kinase Total Protein 6.1 L Albumin 2.8 L Urine pH 11/11/18 11/11/18 11/12/18 11:38 12:23 04:23 WBC Hgb 9.8 L MCH 26 L RDW 22.8 H Lymph % (Auto) Lymph # Seg Neutrophils % Monocytes % (Manual) Basophils % (Manual) Seg Neutrophils # Lymphocytes # (Manual) PT INR POC ABG pH POC ABG pCO2 34.7 L POC ABG pO2 57 L Sodium Potassium Chloride BUN Creatinine Glucose POC Glucose 123 H Total Bilirubin AST Alkaline Phosphatase Ammonia Total Creatine Kinase Total Protein Albumin Urine pH 11/12/18 11/12/18 11/13/18 04:23 11:24 04:03 WBC 4.1 L Hgb MCH 26 L RDW 22.7 H Lymph % (Auto) Lymph # Seg Neutrophils % Monocytes % (Manual) Basophils % (Manual) Seg Neutrophils # Lymphocytes # (Manual) PT INR POC ABG pH POC ABG pCO2 POC ABG pO2 Sodium Potassium Chloride 107.4 H BUN Creatinine 0.5 L Glucose 124 H POC Glucose 142 H Total Bilirubin AST Alkaline Phosphatase 163 H Ammonia Total Creatine Kinase Total Protein 5.9 L Albumin 2.8 L Urine pH 11/13/18 11/14/18 11/14/18 04:03 03:56 03:56 WBC Hgb 10.0 L MCH 26 L RDW 23.4 H Lymph % (Auto) Lymph # Seg Neutrophils % Monocytes % (Manual) Basophils % (Manual) Seg Neutrophils # Lymphocytes # (Manual) PT INR POC ABG pH POC ABG pCO2 POC ABG pO2 Sodium Potassium 3.2 L 3.5 L Chloride 109.1 H 107.9 H BUN Creatinine 0.4 L 0.3 L Glucose 109 H 118 H POC Glucose Total Bilirubin AST 59 H 57 H Alkaline Phosphatase 213 H 239 H Ammonia Total Creatine Kinase Total Protein 5.9 L 5.4 L Albumin 2.7 L 2.8 L Urine pH 11/15/18 11/15/18 11/15/18 05:28 05:28 11:34 WBC Hgb 9.8 L MCH 26 L RDW 23.3 H Lymph % (Auto) Lymph # Seg Neutrophils % Monocytes % (Manual) Basophils % (Manual) Seg Neutrophils # Lymphocytes # (Manual) PT INR POC ABG pH POC ABG pCO2 POC ABG pO2 Sodium Potassium Chloride 111.3 H BUN Creatinine 0.3 L Glucose 110 H POC Glucose 122 H Total Bilirubin AST Alkaline Phosphatase Ammonia Total Creatine Kinase Total Protein Albumin Urine pH 11/15/18 11/16/18 11/16/18 16:11 04:59 04:59 WBC Hgb MCH 26 L RDW 23.4 H Lymph % (Auto) Lymph # Seg Neutrophils % Monocytes % (Manual) Basophils % (Manual) Seg Neutrophils # Lymphocytes # (Manual) PT INR POC ABG pH POC ABG pCO2 POC ABG pO2 Sodium 146 H Potassium Chloride 110.4 H BUN Creatinine 0.4 L Glucose POC Glucose 127 H Total Bilirubin AST Alkaline Phosphatase Ammonia Total Creatine Kinase Total Protein Albumin Urine pH 11/16/18 11/19/18 04:59 04:36 WBC Hgb MCH RDW Lymph % (Auto) Lymph # Seg Neutrophils % Monocytes % (Manual) Basophils % (Manual) Seg Neutrophils # Lymphocytes # (Manual) PT 16.2 H INR 1.34 H POC ABG pH POC ABG pCO2 POC ABG pO2 Sodium Potassium 3.4 L Chloride 109.7 H BUN Creatinine 0.4 L Glucose POC Glucose Total Bilirubin AST 59 H Alkaline Phosphatase 309 H Ammonia Total Creatine Kinase Total Protein Albumin 3.0 L Urine pH Allied health notes reviewed: nursing
--- NOTE | 2018-11-19 14:07 | Progress Note ---
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 As per staff, the patient was in her usual state of health at bedtime which was around 2030 hrs. Pt was found to be confused with decreased level of consciousness. EMS notified and upon arrival the patient was found to be in distress. Pt transported to [facility]. Pt seen and evaluated in ED and found to have Encephalopathy, and Acute Hypoxemic Respiratory Failure and was unable to protect her airway. Pt intubated and placed on vent support, admitted to ICU. She improved, extubated 11/11/18. ammonia improved, normalized on Lactulose. She is now awake,alert. She is however on high amount of Oxygen, on high flow nasal cannula. patient also has MRSA sputum and VRE Urine. Acute respiratory failure was intubated, on vent, now extubated 11/11 Now on Oxygen by high flow Oxygen continue to wean as tolerated Pulm following Hepatic encephalopathy with hyperammonia Improving, now awake,alert,oriented Continue Lactulose Consulted GI, following Alcoholic cirrhosis of liver GI following MRSA sputum Contact isolation VRE Urine, likely colonization Alcohol use Hypertension Monitor BP COPD Seizure disorder seizure precautions Continue Keppra and Lamictal. 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 still with diarrhea secondary to lactulose. Mental status is unchanged but per son, appears to be close to her baseline Hospitalist Physical - Physical exam Narrative exam: Gen: Not in acute distress, lying in bed, confused/delirium HEENT: Normocephalic, atraumatic Neck: supple, no JVD Heart: S1 and S2 reg, no murmurs, rubs or gallop Lungs: Clear, no crackles, no wheeze Abd: soft, non tender, non distended, normal BS Ext: No edema, no clubbing, no cyanosis, Neuro: Awake,alert, oriented to person only, moves all ext - Constitutional Vitals: Temp Pulse Resp BP Pulse Ox 98.3 F 65 18 118/68 92 11/18/18 12:00 11/19/18 09:23 11/19/18 09:23 11/19/18 12:01 11/19/18 13:44 General appearance: Present: no acute distress Results - Labs CBC & Chem 7: 11/16/18 04:59 11/19/18 04:36 Labs: Laboratory Last Values WBC 4.8 K/mm3 (4.5-11.0) 11/16/18 04:59 RBC 4.08 M/mm3 (3.65-5.03) 11/16/18 04:59 Hgb 10.4 gm/dl (10.1-14.3) 11/16/18 04:59 Hct 33.4 % (30.3-42.9) 11/16/18 04:59 MCV 82 fl (79-97) 11/16/18 04:59 MCH 26 pg (28-32) L 11/16/18 04:59 MCHC 31 % (30-34) 11/16/18 04:59 RDW 23.4 % (13.2-15.2) H 11/16/18 04:59 Plt Count 235 K/mm3 (140-440) 11/16/18 04:59 Lymph % (Auto) 3.2 % (13.4-35.0) L 11/09/18 05:41 [place] % (Auto) 6.5 % (0.0-7.3) 11/09/18 05:41 Eos % (Auto) 0.3 % (0.0-4.3) 11/09/18 05:41 Baso % (Auto) 0.6 % (0.0-1.8) 11/09/18 05:41 Lymph # 0.3 K/mm3 (1.2-5.4) L 11/09/18 05:41 [place] # 0.7 K/mm3 (0.0-0.8) 11/09/18 05:41 Eos # 0.0 K/mm3 (0.0-0.4) 11/09/18 05:41 Baso # 0.1 K/mm3 (0.0-0.1) 11/09/18 05:41 Add Manual Diff Complete 11/08/18 11:47 Total Counted 100 11/08/18 11:47 Seg Neutrophils % 89.4 % (40.0-70.0) H 11/09/18 05:41 Seg Neuts % (Manual) 65.0 % (40.0-70.0) 11/08/18 11:47 0 % 11/08/18 11:47 17.0 % (13.4-35.0) 11/08/18 11:47 Reactive Lymphs % (Man) 0 % 11/08/18 11:47 13.0 % (0.0-7.3) H 11/08/18 11:47 2.0 % (0.0-4.3) 11/08/18 11:47 3.0 % (0.0-1.8) H 11/08/18 11:47 0 % 11/08/18 11:47 0 % 11/08/18 11:47 0 % 11/08/18 11:47 0 % 11/08/18 11:47 Nucleated RBC % Not Reportable 11/08/18 11:47 Seg Neutrophils # 9.6 K/mm3 (1.8-7.7) H 11/09/18 05:41 Seg Neutrophils # Man 2.2 K/mm3 (1.8-7.7) 11/08/18 11:47 Band Neutrophils # 0.0 K/mm3 11/08/18 11:47 0.6 K/mm3 (1.2-5.4) L 11/08/18 11:47 Abs React Lymphs (Man) 0.0 K/mm3 11/08/18 11:47 0.4 K/mm3 (0.0-0.8) 11/08/18 11:47 0.1 K/mm3 (0.0-0.4) 11/08/18 11:47 0.1 K/mm3 (0.0-0.1) 11/08/18 11:47 0.0 K/mm3 11/08/18 11:47 0.0 K/mm3 11/08/18 11:47 0.0 K/mm3 11/08/18 11:47 Blast Cells # 0.0 K/mm3 11/08/18 11:47 WBC Morphology Not Reportable 11/08/18 11:47 Hypersegmented Neuts Not Reportable 11/08/18 11:47 Hyposegmented Neuts Not Reportable 11/08/18 11:47 Hypogranular Neuts Not Reportable 11/08/18 11:47 Not Reportable 11/08/18 11:47 Not Reportable 11/08/18 11:47 Not Reportable 11/08/18 11:47 Not Reportable 11/08/18 11:47 Not Reportable 11/08/18 11:47 Not Reportable 11/08/18 11:47 Consistent w auto 11/08/18 11:47 Not Reportable 11/08/18 11:47 Plt Clumps, EDTA Not Reportable 11/08/18 11:47 Not Reportable 11/08/18 11:47 Few 11/08/18 11:47 Not Reportable 11/08/18 11:47 Plt Morphology Comment Not Reportable 11/08/18 11:47 RBC Morphology Not Reportable 11/08/18 11:47 Dimorphic RBCs Not Reportable 11/08/18 11:47 Not Reportable 11/08/18 11:47 Not Reportable 11/08/18 11:47 1+ 11/08/18 11:47 Few 11/08/18 11:47 Not Reportable 11/08/18 11:47 Not Reportable 11/08/18 11:47 Not Reportable 11/08/18 11:47 Not Reportable 11/08/18 11:47 Not Reportable 11/08/18 11:47 Not Reportable 11/08/18 11:47 Rare 11/08/18 11:47 Not Reportable 11/08/18 11:47 Not Reportable 11/08/18 11:47 Not Reportable 11/08/18 11:47 Not Reportable 11/08/18 11:47 Not Reportable 11/08/18 11:47 Not Reportable 11/08/18 11:47 Not Reportable 11/08/18 11:47 Few 11/08/18 11:47 Acanthocytes (Spur) Not Reportable 11/08/18 11:47 Rouleaux Not Reportable 11/08/18 11:47 Not Reportable 11/08/18 11:47 Not Reportable 11/08/18 11:47 Not Reportable 11/08/18 11:47 Not Reportable 11/08/18 11:47 Hem Pathologist Commnt No 11/08/18 11:47 PT 16.2 Sec. (12.2-14.9) H 11/16/18 04:59 INR 1.34 (0.87-1.13) H 11/16/18 04:59 APTT 30.4 Sec. (24.2-36.6) 11/08/18 11:47 15.4 Sec. (15.1-19.6) 11/08/18 11:47 POC ABG pH 7.443 (7.35-7.45) 11/11/18 12:23 POC ABG pCO2 34.7 (35-45) L 11/11/18 12:23 POC ABG pO2 57 (80-105) L 11/11/18 12:23 POC ABG HCO3 23.8 (22-26 mml/L) 11/11/18 12:23 POC ABG Total CO2 25 (23-27mmol/L) 11/11/18 12:23 POC ABG O2 Sat 91 11/11/18 12:23 POC ABG Base Excess 0 ((-2) - (+3)mmol/L) 11/11/18 12:23 45 % 11/11/18 12:23 Sodium 143 mmol/L (137-145) 11/19/18 04:36 Potassium 3.4 mmol/L (3.6-5.0) L 11/19/18 04:36 Chloride 109.7 mmol/L (98-107) H 11/19/18 04:36 Carbon Dioxide 22 mmol/L (22-30) 11/19/18 04:36 15 mmol/L 11/19/18 04:36 BUN 7 mg/dL (7-17) 11/19/18 04:36 0.4 mg/dL (0.7-1.2) L 11/19/18 04:36 Estimated GFR > 60 ml/min 11/19/18 04:36 18 % 11/19/18 04:36 Glucose 95 mg/dL (65-100) 11/19/18 04:36 POC Glucose 127 (70-105) H 11/15/18 16:11 Lactic Acid 1.90 mmol/L (0.7-2.0) 11/09/18 13:15 Calcium 9.0 mg/dL (8.4-10.2) 11/19/18 04:36 Phosphorus 3.50 mg/dL (2.5-4.5) 11/14/18 08:51 Magnesium 1.70 mg/dL (1.7-2.3) 11/14/18 08:51 1.10 mg/dL (0.1-1.2) 11/19/18 04:36 AST 59 units/L (5-40) H 11/19/18 04:36 ALT 41 units/L (7-56) 11/19/18 04:36 309 units/L (35-129) H 11/19/18 04:36 44.0 umol/L (25-60) 11/15/18 08:21 27 units/L (30-135) L 11/08/18 11:47 CK-MB (CK-2) < 1.0 ng/mL (0.0-4.0) 11/08/18 11:47 CK-MB (CK-2) Rel Index 3.7 (0-4) 11/08/18 11:47 < 0.010 ng/mL (0.00-0.029) 11/08/18 11:47 0.60 mg/dL (0.00-1.30) 11/09/18 05:41 6.3 g/dL (6.3-8.2) 11/19/18 04:36 3.0 g/dL (3.9-5) L 11/19/18 04:36 0.9 % 11/19/18 04:36 TSH 2.370 mlU/mL (0.270-4.200) 11/08/18 11:47 Free T4 0.92 ng/dL (0.76-1.46) 11/08/18 11:47 [place] (Yellow) 11/08/18 12:00 Cloudy (Clear) 11/08/18 12:00 8.0 (5.0-7.0) H 11/08/18 12:00 Ur Specific [place] 1.017 (1.003-1.030) 11/08/18 12:00 <15 mg/dl mg/dL (Negative) 11/08/18 12:00 Neg mg/dL (Negative) 11/08/18 12:00 Neg mg/dL (Negative) 11/08/18 12:00 Neg (Negative) 11/08/18 12:00 Neg (Negative) 11/08/18 12:00 Neg (Negative) 11/08/18 12:00 < 2.0 mg/dL (<2.0) 11/08/18 12:00 Ur Leukocyte Esterase Neg (Negative) 11/08/18 12:00 4.0 /HPF (0.0-6.0) 11/08/18 12:00 2.0 /HPF (0.0-6.0) 11/08/18 12:00 U Epithel Cells (Auto) 1.0 /HPF (0-13.0) 11/08/18 12:00 3+ /HPF (Negative) 11/08/18 12:00 Few /HPF 11/08/18 12:00 Vancomycin Trough 10.6 ug/mL (5.0-20.0) 11/15/18 05:28 Plasma/Serum Alcohol < 0.01 % (0-0.07) 11/08/18 11:47 Active Medications - Current Medications Current Medications: Generic Name Dose Route Start Last Admin Trade Name Freq PRN Reason Stop Dose Admin Albuterol 2.5 mg 11/16/18 13:46 Proventil IH Q6HRT PRN Dyspnea Lipase/Protease/Amylase 1 each 11/08/18 15:[address] 10,500 Unit FEEDTUBE PRN PRN For Clogged Feeding Tube Arformoterol Tartrate 15 mcg 11/16/18 20:00 11/19/18 09:13 Brovana Nebu IH 15 mcg Q12HRT HUONG Administration Budesonide 0.5 mg 11/16/18 20:00 11/19/18 09:13 Pulmicort IH 0.5 mg Q12HRT HUONG Administration Famotidine 20 mg 11/15/18 10:00 11/19/18 11:53 Pepcid PO 20 mg BID HUONG Administration Fluticasone Propionate 50 mcg 11/09/18 10:00 11/19/18 11:53 Flonase NS 50 mcg QDAY HUONG Administration Folic Acid 1 mg 11/09/18 10:00 11/19/18 11:54 Folvite PO 1 mg QDAY HUONG Administration Hydrophilic Ointment 1 applic 11/08/18 11:37 Vaseline Lip Therapy TP Q2HR PRN Dry Lips Lactulose 30 gm 11/08/18 20:00 11/19/18 09:06 Cephulac PO 30 gm TID HUONG Administration Lamotrigine 25 mg 11/08/18 22:00 11/19/18 11:59 Lamictal PO 25 mg BID HUONG Administration Levetiracetam 1,500 mg 11/08/18 22:00 11/19/18 11:53 Keppra PO 1,500 mg BID HUONG Administration Levothyroxine Sodium 75 mcg 11/09/18 06:00 11/19/18 05:28 Synthroid PO 75 mcg DAILY@0600 HUONG Administration Lorazepam 2 mg 11/08/18 14:18 11/18/18 23:18 Ativan IV 2 mg Q1HR PRN Administration CIWA-Ar 8-15 Multi-Ingred Cream/Lotion/Oil/Oint 1 applic 11/08/18 11:37 Artificial Tears Ophth Oint OU Q4HR PRN Dry Eye(s) Multivitamins 1 each 11/09/18 10:00 11/19/18 11:54 Theragran Tab PO 1 each DAILY HUONG Administration Ondansetron HCl 4 mg 11/11/18 13:20 Zofran IV Q8H PRN Nausea And Vomiting Propranolol HCl 40 mg 11/09/18 10:00 11/19/18 12:00 Inderal PO 40 mg QDAY HUONG Administration Rifaximin 550 mg 11/08/18 22:00 11/19/18 11:53 Xifaxan PO 550 mg BID HUONG Administration Simple Syrup 15 ml 11/08/18 15:47 Simple Syrup FEEDTUBE PRN PRN Hypoglycemia Simple Syrup 30 ml 11/08/18 15:47 Simple Syrup FEEDTUBE PRN PRN Hypoglycemia Sodium Bicarbonate 325 mg 11/08/18 15:47 Sodium Bicarbonate FEEDTUBE PRN PRN For Clogged Feeding Tube Sodium Chloride 5 ml 11/08/18 11:37 Nacl 0.9% 500 Ml IV DIRECT PRN [employer] Sodium Chloride 10 ml 11/08/18 22:00 11/19/18 12:01 Sodium Chloride Flush Syringe 10 Ml IV 10 ml BID HUONG Administration Sodium Chloride 10 ml 11/08/18 13:32 Sodium Chloride Flush Syringe 10 Ml IV PRN PRN LINE FLUSH Spironolactone 100 mg 11/09/18 10:00 11/19/18 12:01 Aldactone PO 100 mg QDAY HUONG Administration Thiamine HCl 100 mg 11/09/18 10:00 11/19/18 11:53 Vitamin B-1 PO 100 mg QDAY HUONG Administration Nutrition/Malnutrition Assess - Dietary Evaluation Nutrition/Malnutrition Findings: Nutrition Notes Start: 11/08/18 15:38 Freq: Status: Active Protocol: Document 11/12/18 16:20 RM (Rec: 11/12/18 16:22 RM [id number]) Nutrition Notes Initial or Follow up Brief Note Current Diet Vital 1.2 at 55 ml/hr [place] Body Weight (kg) 0 Subjective/Other Information Observed Vital 1.2 infusing at goal rate. Nutrition Intervention Follow-Up By: 11/19/18 Additional Comments Follow for TF tolerance - Attestation Statement I have reviewed and agreed w/ Malnutrition eval & tx plan: Yes
[2018-11-20] MEDS: SYNTHROID PO SCH (05:42)
[2018-11-20] MEDS: BROVANA NEBU IH SCH ×2 (08:41→20:55)
[2018-11-20] MEDS: PULMICORT IH SCH ×2 (08:41→20:55)
[2018-11-20] MEDS: PEPCID PO SCH ×2 (11:21→21:54)
[2018-11-20] MEDS: KEPPRA PO SCH ×2 (11:21→21:54)
[2018-11-20] MEDS: XIFAXAN PO SCH ×2 (11:21→21:54)
[2018-11-20] MEDS: THERAGRAN Tab PO SCH (11:21)
[2018-11-20] MEDS: LaMICtal PO SCH ×2 (11:22→21:53)
[2018-11-20] MEDS: VITAMIN B-1 PO SCH (11:22)
[2018-11-20] MEDS: SODIUM CHLORIDE FLUSH SYRINGE 10 ML IV SCH (11:22)
[2018-11-20] MEDS: ALDACTONE PO SCH (11:22)
[2018-11-20] MEDS: FOLVITE PO SCH (11:23)
[2018-11-20] MEDS: FLONASE NS SCH (11:23)
[2018-11-20] MEDS: CEPHULAC PO SCH ×2 (11:25→15:31)
[2018-11-20] MEDS: INDERAL PO SCH (11:42)
--- NOTE | 2018-11-20 13:00 | Progress Note ---
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 As per staff, the patient was in her usual state of health at bedtime which was around 2030 hrs. Pt was found to be confused with decreased level of consciousness. EMS notified and upon arrival the patient was found to be in distress. Pt transported to [facility]. Pt seen and evaluated in ED and found to have Encephalopathy, and Acute Hypoxemic Respiratory Failure and was unable to protect her airway. Pt intubated and placed on vent support, admitted to ICU. She improved, extubated 11/11/18. ammonia improved, normalized on Lactulose. She is now awake,alert. She is however on high amount of Oxygen, on high flow nasal cannula. patient also has MRSA sputum and VRE Urine. 11/20/18 No clinical change, continue to wean from high flow Acute respiratory failure was intubated, on vent, now extubated 11/11 Now on Oxygen by high flow Oxygen continue to wean as tolerated Pulm following Hepatic encephalopathy with hyperammonia Improving, now awake,alert,oriented Continue Lactulose Consulted GI, following Alcoholic cirrhosis of liver GI following MRSA sputum Contact isolation VRE Urine, likely colonization Alcohol use Hypertension Monitor BP COPD Seizure disorder seizure precautions Continue Keppra and Lamictal. 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 still with diarrhea secondary to lactulose. Mental status is unchanged but per son, appears to be close to her baseline Hospitalist Physical - Physical exam Narrative exam: Gen: Not in acute distress, lying in bed, confused/delirium HEENT: Normocephalic, atraumatic Neck: supple, no JVD Heart: S1 and S2 reg, no murmurs, rubs or gallop Lungs: Clear, no crackles, no wheeze Abd: soft, non tender, non distended, normal BS Ext: No edema, no clubbing, no cyanosis, Neuro: Awake,alert, oriented to person only, moves all ext - Constitutional Vitals: Temp Pulse Resp BP Pulse Ox 97.5 F L 65 20 136/76 93 11/20/18 06:36 11/20/18 08:51 11/20/18 08:51 11/20/18 06:36 11/20/18 08:41 General appearance: Present: no acute distress Results - Labs CBC & Chem 7: 11/16/18 04:59 11/19/18 04:36 Labs: Laboratory Last Values WBC 4.8 K/mm3 (4.5-11.0) 11/16/18 04:59 RBC 4.08 M/mm3 (3.65-5.03) 11/16/18 04:59 Hgb 10.4 gm/dl (10.1-14.3) 11/16/18 04:59 Hct 33.4 % (30.3-42.9) 11/16/18 04:59 MCV 82 fl (79-97) 11/16/18 04:59 MCH 26 pg (28-32) L 11/16/18 04:59 MCHC 31 % (30-34) 11/16/18 04:59 RDW 23.4 % (13.2-15.2) H 11/16/18 04:59 Plt Count 235 K/mm3 (140-440) 11/16/18 04:59 Lymph % (Auto) 3.2 % (13.4-35.0) L 11/09/18 05:41 [place] % (Auto) 6.5 % (0.0-7.3) 11/09/18 05:41 Eos % (Auto) 0.3 % (0.0-4.3) 11/09/18 05:41 Baso % (Auto) 0.6 % (0.0-1.8) 11/09/18 05:41 Lymph # 0.3 K/mm3 (1.2-5.4) L 11/09/18 05:41 [place] # 0.7 K/mm3 (0.0-0.8) 11/09/18 05:41 Eos # 0.0 K/mm3 (0.0-0.4) 11/09/18 05:41 Baso # 0.1 K/mm3 (0.0-0.1) 11/09/18 05:41 Add Manual Diff Complete 11/08/18 11:47 Total Counted 100 11/08/18 11:47 Seg Neutrophils % 89.4 % (40.0-70.0) H 11/09/18 05:41 Seg Neuts % (Manual) 65.0 % (40.0-70.0) 11/08/18 11:47 0 % 11/08/18 11:47 17.0 % (13.4-35.0) 11/08/18 11:47 Reactive Lymphs % (Man) 0 % 11/08/18 11:47 13.0 % (0.0-7.3) H 11/08/18 11:47 2.0 % (0.0-4.3) 11/08/18 11:47 3.0 % (0.0-1.8) H 11/08/18 11:47 0 % 11/08/18 11:47 0 % 11/08/18 11:47 0 % 11/08/18 11:47 0 % 11/08/18 11:47 Nucleated RBC % Not Reportable 11/08/18 11:47 Seg Neutrophils # 9.6 K/mm3 (1.8-7.7) H 11/09/18 05:41 Seg Neutrophils # Man 2.2 K/mm3 (1.8-7.7) 11/08/18 11:47 Band Neutrophils # 0.0 K/mm3 11/08/18 11:47 0.6 K/mm3 (1.2-5.4) L 11/08/18 11:47 Abs React Lymphs (Man) 0.0 K/mm3 11/08/18 11:47 0.4 K/mm3 (0.0-0.8) 11/08/18 11:47 0.1 K/mm3 (0.0-0.4) 11/08/18 11:47 0.1 K/mm3 (0.0-0.1) 11/08/18 11:47 0.0 K/mm3 11/08/18 11:47 0.0 K/mm3 11/08/18 11:47 0.0 K/mm3 11/08/18 11:47 Blast Cells # 0.0 K/mm3 11/08/18 11:47 WBC Morphology Not Reportable 11/08/18 11:47 Hypersegmented Neuts Not Reportable 11/08/18 11:47 Hyposegmented Neuts Not Reportable 11/08/18 11:47 Hypogranular Neuts Not Reportable 11/08/18 11:47 Not Reportable 11/08/18 11:47 Not Reportable 11/08/18 11:47 Not Reportable 11/08/18 11:47 Not Reportable 11/08/18 11:47 Not Reportable 11/08/18 11:47 Not Reportable 11/08/18 11:47 Consistent w auto 11/08/18 11:47 Not Reportable 11/08/18 11:47 Plt Clumps, EDTA Not Reportable 11/08/18 11:47 Not Reportable 11/08/18 11:47 Few 11/08/18 11:47 Not Reportable 11/08/18 11:47 Plt Morphology Comment Not Reportable 11/08/18 11:47 RBC Morphology Not Reportable 11/08/18 11:47 Dimorphic RBCs Not Reportable 11/08/18 11:47 Not Reportable 11/08/18 11:47 Not Reportable 11/08/18 11:47 1+ 11/08/18 11:47 Few 11/08/18 11:47 Not Reportable 11/08/18 11:47 Not Reportable 11/08/18 11:47 Not Reportable 11/08/18 11:47 Not Reportable 11/08/18 11:47 Not Reportable 11/08/18 11:47 Not Reportable 11/08/18 11:47 Rare 11/08/18 11:47 Not Reportable 11/08/18 11:47 Not Reportable 11/08/18 11:47 Not Reportable 11/08/18 11:47 Not Reportable 11/08/18 11:47 Not Reportable 11/08/18 11:47 Not Reportable 11/08/18 11:47 Not Reportable 11/08/18 11:47 Few 11/08/18 11:47 Acanthocytes (Spur) Not Reportable 11/08/18 11:47 Rouleaux Not Reportable 11/08/18 11:47 Not Reportable 11/08/18 11:47 Not Reportable 11/08/18 11:47 Not Reportable 11/08/18 11:47 Not Reportable 11/08/18 11:47 Hem Pathologist Commnt No 11/08/18 11:47 PT 16.2 Sec. (12.2-14.9) H 11/16/18 04:59 INR 1.34 (0.87-1.13) H 11/16/18 04:59 APTT 30.4 Sec. (24.2-36.6) 11/08/18 11:47 15.4 Sec. (15.1-19.6) 11/08/18 11:47 POC ABG pH 7.443 (7.35-7.45) 11/11/18 12:23 POC ABG pCO2 34.7 (35-45) L 11/11/18 12:23 POC ABG pO2 57 (80-105) L 11/11/18 12:23 POC ABG HCO3 23.8 (22-26 mml/L) 11/11/18 12:23 POC ABG Total CO2 25 (23-27mmol/L) 11/11/18 12:23 POC ABG O2 Sat 91 11/11/18 12:23 POC ABG Base Excess 0 ((-2) - (+3)mmol/L) 11/11/18 12:23 45 % 11/11/18 12:23 Sodium 143 mmol/L (137-145) 11/19/18 04:36 Potassium 3.4 mmol/L (3.6-5.0) L 11/19/18 04:36 Chloride 109.7 mmol/L (98-107) H 11/19/18 04:36 Carbon Dioxide 22 mmol/L (22-30) 11/19/18 04:36 15 mmol/L 11/19/18 04:36 BUN 7 mg/dL (7-17) 11/19/18 04:36 0.4 mg/dL (0.7-1.2) L 11/19/18 04:36 Estimated GFR > 60 ml/min 11/19/18 04:36 18 % 11/19/18 04:36 Glucose 95 mg/dL (65-100) 11/19/18 04:36 POC Glucose 127 (70-105) H 11/15/18 16:11 Lactic Acid 1.90 mmol/L (0.7-2.0) 11/09/18 13:15 Calcium 9.0 mg/dL (8.4-10.2) 11/19/18 04:36 Phosphorus 3.50 mg/dL (2.5-4.5) 11/14/18 08:51 Magnesium 1.70 mg/dL (1.7-2.3) 11/14/18 08:51 1.10 mg/dL (0.1-1.2) 11/19/18 04:36 AST 59 units/L (5-40) H 11/19/18 04:36 ALT 41 units/L (7-56) 11/19/18 04:36 309 units/L (35-129) H 11/19/18 04:36 44.0 umol/L (25-60) 11/15/18 08:21 27 units/L (30-135) L 11/08/18 11:47 CK-MB (CK-2) < 1.0 ng/mL (0.0-4.0) 11/08/18 11:47 CK-MB (CK-2) Rel Index 3.7 (0-4) 11/08/18 11:47 < 0.010 ng/mL (0.00-0.029) 11/08/18 11:47 0.60 mg/dL (0.00-1.30) 11/09/18 05:41 6.3 g/dL (6.3-8.2) 11/19/18 04:36 3.0 g/dL (3.9-5) L 11/19/18 04:36 0.9 % 11/19/18 04:36 TSH 2.370 mlU/mL (0.270-4.200) 11/08/18 11:47 Free T4 0.92 ng/dL (0.76-1.46) 11/08/18 11:47 Jihan (Yellow) 11/08/18 12:00 Cloudy (Clear) 11/08/18 12:00 8.0 (5.0-7.0) H 11/08/18 12:00 Ur Specific [place] 1.017 (1.003-1.030) 11/08/18 12:00 <15 mg/dl mg/dL (Negative) 11/08/18 12:00 Neg mg/dL (Negative) 11/08/18 12:00 Neg mg/dL (Negative) 11/08/18 12:00 Neg (Negative) 11/08/18 12:00 Neg (Negative) 11/08/18 12:00 Neg (Negative) 11/08/18 12:00 < 2.0 mg/dL (<2.0) 11/08/18 12:00 Ur Leukocyte Esterase Neg (Negative) 11/08/18 12:00 4.0 /HPF (0.0-6.0) 11/08/18 12:00 2.0 /HPF (0.0-6.0) 11/08/18 12:00 U Epithel Cells (Auto) 1.0 /HPF (0-13.0) 11/08/18 12:00 3+ /HPF (Negative) 11/08/18 12:00 Few /HPF 11/08/18 12:00 Vancomycin Trough 10.6 ug/mL (5.0-20.0) 11/15/18 05:28 Plasma/Serum Alcohol < 0.01 % (0-0.07) 11/08/18 11:47 Active Medications - Current Medications Current Medications: Generic Name Dose Route Start Last Admin Trade Name Freq PRN Reason Stop Dose Admin Albuterol 2.5 mg 11/16/18 13:46 Proventil IH Q6HRT PRN Dyspnea Lipase/Protease/Amylase 1 each 11/08/18 15:[address] 10,500 Unit FEEDTUBE PRN PRN For Clogged Feeding Tube Arformoterol Tartrate 15 mcg 11/16/18 20:00 11/20/18 08:41 Brovana Nebu IH 15 mcg Q12HRT HUONG Administration Budesonide 0.5 mg 11/16/18 20:00 11/20/18 08:41 Pulmicort IH 0.5 mg Q12HRT HUONG Administration Famotidine 20 mg 11/15/18 10:00 11/20/18 11:21 Pepcid PO 20 mg BID HUONG Administration Fluticasone Propionate 50 mcg 11/09/18 10:00 11/20/18 11:23 Flonase NS 50 mcg QDAY HUONG Administration Folic Acid 1 mg 11/09/18 10:00 11/20/18 11:23 Folvite PO 1 mg QDAY HUONG Administration Hydrophilic Ointment 1 applic 11/08/18 11:37 Vaseline Lip Therapy TP Q2HR PRN Dry Lips Lactulose 30 gm 11/08/18 20:00 11/20/18 11:25 Cephulac PO 30 gm TID HUONG Administration Lamotrigine 25 mg 11/08/18 22:00 11/20/18 11:22 Lamictal PO 25 mg BID HUONG Administration Levetiracetam 1,500 mg 11/08/18 22:00 11/20/18 11:21 Keppra PO 1,500 mg BID HUONG Administration Levothyroxine Sodium 75 mcg 11/09/18 06:00 11/20/18 05:42 Synthroid PO 75 mcg DAILY@0600 HUONG Administration Lorazepam 2 mg 11/08/18 14:18 11/18/18 23:18 Ativan IV 2 mg Q1HR PRN Administration CIWA-Ar 8-15 Multi-Ingred Cream/Lotion/Oil/Oint 1 applic 11/08/18 11:37 Artificial Tears Ophth Oint OU Q4HR PRN Dry Eye(s) Multivitamins 1 each 11/09/18 10:00 11/20/18 11:21 Theragran Tab PO 1 each DAILY HUONG Administration Ondansetron HCl 4 mg 11/11/18 13:20 Zofran IV Q8H PRN Nausea And Vomiting Propranolol HCl 40 mg 11/09/18 10:00 11/20/18 11:42 Inderal PO 40 mg QDAY HUONG Administration Rifaximin 550 mg 11/08/18 22:00 11/20/18 11:21 Xifaxan PO 550 mg BID HUONG Administration Simple Syrup 15 ml 11/08/18 15:47 Simple Syrup FEEDTUBE PRN PRN Hypoglycemia Simple Syrup 30 ml 11/08/18 15:47 Simple Syrup FEEDTUBE PRN PRN Hypoglycemia Sodium Bicarbonate 325 mg 11/08/18 15:47 Sodium Bicarbonate FEEDTUBE PRN PRN For Clogged Feeding Tube Sodium Chloride 5 ml 11/08/18 11:37 Nacl 0.9% 500 Ml IV DIRECT PRN [employer]ERIAL L[employer]IL [employer]PERATOR Sodium Chloride 10 ml 11/08/18 22:00 11/20/18 11:22 Sodium Chloride Flush Syringe 10 Ml IV 10 ml BID HUONG Administration Sodium Chloride 10 ml 11/08/18 13:32 Sodium Chloride Flush Syringe 10 Ml IV PRN PRN LINE FLUSH Spironolactone 100 mg 11/09/18 10:00 11/20/18 11:22 Aldactone PO 100 mg QDAY HUONG Administration Thiamine HCl 100 mg 11/09/18 10:00 11/20/18 11:22 Vitamin B-1 PO 100 mg QDAY HUONG Administration Nutrition/Malnutrition Assess - Dietary Evaluation Nutrition/Malnutrition Findings: Nutrition Notes Start: 11/08/18 15:38 Freq: Status: Active Protocol: Document 11/19/18 16:25 RM (Rec: 11/19/18 16:30 RM [email or web address]) Nutrition Notes Initial or Follow up Reassessment Current Diagnosis COPD,Hypertension Other Pertinent Diagnosis Hx CVA,GERD, Dementia, ESLD Current Diet GI soft w/Ensure Enlive Labs/Tests Reviewed Pertinent Medications Reviewed Height 5 ft 8 in Weight 53.5 kg [place] Body Weight (kg) 63.63 BMI 17.9 Weight change and time frame Noted wt change. Unable to obtain wt from bedscale. Subjective/Other Information Pt moved to and diet advanced. Pt confused and eating lunch at time of visit. 25% of lunch and 25% of Ensure Enlive bottle consumed by time of visit. Noted another unopened Ensure Enlive at bedside. Percent of energy/protein needs met: 32%/39% Burn Absent Trauma Absent #1 Nutrition Diagnosis Inadequate oral intake As Evidenced by Signs and Symptoms pt meeting 32% of calorie and 39% of protein needs via PO intakes Diagnosis Progress(for reassessment Improved documentation) Is patient on ventilator? No Is Patient Ambulatory and/or Out of Bed No REE-([facility]-confined to bed) 1383.420 Kcal/Kg value to use for calculation 35 Approximate Energy Requirements Using 1873 kcal/Kg Calculation Used for Recommendations Kcal/kg Additional Notes Protein Needs: 64-86g (1.2-1. 6g/kg) Fluid Needs: 1 ml/kcal Nutrition Intervention Nutrition Support: D/C'd Add Supplement/Snack (indicate name/kcal Ensure Enlive 1 daily /protein ) Provides kCal: 350 Provides Protein (gm) 20 Goal #1 Meet at least 75% of calorie and protein needs via PO and ONS intakes Anticipated Discharge Needs: Unable to determine at this time Follow-Up By: 11/22/18 Additional Comments Follow for PO and ONS intakes
--- NOTE | 2018-11-20 17:58 | Progress Note ---
Assessment and Plan Patient awake and resting on 4 litres O2 and O2 saturation running 94%. No acute respiratory distress.Patient afebrile.Blood pressure 105/61. Patient still confused. - Patient Problems (1) COPD (chronic obstructive pulmonary disease) Current Visit: Yes Status: Acute Qualifiers: Chronic bronchitis type: mixed simple and mucopurulent Plan to address problem: O2 supplementation , 4 litres via nasal canula. Albuterol/atrovent aerosol treatments q 6 hours prn for shortness of breath. Brovanna/Budesonide aerosol treatments q 12 hours. Continue Famotidine. SCDs. (2) CAD (coronary artery disease) Current Visit: Yes Status: Acute Qualifiers: Associated angina: without angina Plan to address problem: Management as per cardiology. (3) EtOH dependence Current Visit: Yes Status: Acute Qualifiers: Complication of substance-induced condition: with unspecified complication (4) Altered mental status Current Visit: Yes Status: Acute Plan to address problem: Management as per primary care and neurology. (5) Hepatic encephalopathy syndrome Current Visit: Yes Status: Acute Plan to address problem: Management as per primary care and gastroenterology. (6) Hypothyroid Current Visit: Yes Status: Acute Qualifiers: Hypothyroidism type: unspecified Qualified Code(s): E03.9 - Hypothyroidism, unspecified Plan to address problem: Patient is on Levothyroxine. Management as per primary care. (7) Respiratory failure Current Visit: Yes Status: Acute Qualifiers: Plan to address problem: O2 4 litres via nasal canula. Albuterol/atrovent aerosol treatments q 6 hours Prn for shortness of breath. Brovanna/Budesonide aerosol treatments q 12 hours. Continue Famotidine. SCDs. Subjective Date of service: 11/20/18 Principal diagnosis: Ac hypoxemic resp failure; Hepatic encephalopathy; Coagulopathy; Sz disord Interval history: Patient awake and resting on 4 litres O2 and O2 saturation running 94%. No acute respiratory distress.Patient afebrile.Blood pressure 105/61. Patient still confused. Objective Vital Signs - 12hr 11/20/18 11/20/18 11/20/18 06:36 08:41 08:51 Temperature 97.5 F L Pulse Rate 52 L Pulse Rate [ 67 65 Anterior Bilateral Throughout] Respiratory 18 Rate Respiratory 18 20 Rate [Anterior Bilateral Throughout] Blood Pressure 136/76 O2 Sat by Pulse 95 93 Oximetry 11/20/18 13:01 Temperature 97.8 F Pulse Rate 64 Pulse Rate [ Anterior Bilateral Throughout] Respiratory 18 Rate Respiratory Rate [Anterior Bilateral Throughout] Blood Pressure 105/61 O2 Sat by Pulse 94 Oximetry Constitutional: no acute distress, alert, other (Still confusing.) Eyes: non-icteric ENT: oropharynx moist, other (extubated) Neck: supple, no lymphadenopathy, no JVD, other (no thyromegaly) Effort: mildly labored Ascultation: Bilateral: rales, rhonchi Percussion: Bilateral: not dull Cardiovascular: regular rate and rhythm Gastrointestinal: normoactive bowel sounds, soft, non-tender, non-distended Integumentary: rash, other (spider naevi) Extremities: no cyanosis, no edema, pulses normal, no ischemia or petechiae Neurologic: non-focal exam (grossly), pupils equal and round, CN II-XII normal, motor strength normal and Psychiatric: mood appropriate, affect normal CBC and BMP: 11/16/18 04:59 11/19/18 04:36 ABG, PT/INR, D-dimer: ABG POC ABG pH 7.443 (7.35-7.45) 11/11/18 12:23 POC ABG pCO2 34.7 (35-45) L 11/11/18 12:23 POC ABG pO2 57 (80-105) L 11/11/18 12:23 POC ABG HCO3 23.8 (22-26 mml/L) 11/11/18 12:23 POC ABG Total CO2 25 (23-27mmol/L) 11/11/18 12:23 POC ABG O2 Sat 91 11/11/18 12:23 PT/INR, D-dimer PT 16.2 Sec. (12.2-14.9) H 11/16/18 04:59 INR 1.34 (0.87-1.13) H 11/16/18 04:59 Abnormal lab findings: Abnormal Labs 11/08/18 11/08/18 11/08/18 11:47 11:47 11:47 WBC 3.4 L Hgb MCH 26 L RDW 21.6 H Lymph % (Auto) Lymph # Seg Neutrophils % Monocytes % (Manual) 13.0 H Basophils % (Manual) 3.0 H Seg Neutrophils # Lymphocytes # (Manual) 0.6 L PT 17.3 H INR 1.45 H POC ABG pH POC ABG pCO2 POC ABG pO2 Sodium Potassium Chloride BUN Creatinine 0.6 L Glucose 130 H POC Glucose Total Bilirubin 1.50 H AST Alkaline Phosphatase 140 H Ammonia Total Creatine Kinase 27 L Total Protein 6.0 L Albumin 3.0 L Urine pH 11/08/18 11/08/18 11/08/18 11:47 12:00 14:01 WBC Hgb MCH RDW Lymph % (Auto) Lymph # Seg Neutrophils % Monocytes % (Manual) Basophils % (Manual) Seg Neutrophils # Lymphocytes # (Manual) PT INR POC ABG pH 7.452 H POC ABG pCO2 32.8 L POC ABG pO2 127 H Sodium Potassium Chloride BUN Creatinine Glucose POC Glucose Total Bilirubin AST Alkaline Phosphatase Ammonia 123.0 H Total Creatine Kinase Total Protein Albumin Urine pH 8.0 H 11/08/18 11/08/18 11/09/18 14:34 15:13 04:31 WBC Hgb MCH RDW Lymph % (Auto) Lymph # Seg Neutrophils % Monocytes % (Manual) Basophils % (Manual) Seg Neutrophils # Lymphocytes # (Manual) PT INR POC ABG pH 7.468 H POC ABG pCO2 POC ABG pO2 76 L 73 L Sodium Potassium Chloride BUN Creatinine Glucose POC Glucose 112 H Total Bilirubin AST Alkaline Phosphatase Ammonia Total Creatine Kinase Total Protein Albumin Urine pH 11/09/18 11/09/18 11/09/18 05:41 05:41 05:41 WBC Hgb MCH 26 L RDW 21.5 H Lymph % (Auto) 3.2 L Lymph # 0.3 L Seg Neutrophils % 89.4 H Monocytes % (Manual) Basophils % (Manual) Seg Neutrophils # 9.6 H Lymphocytes # (Manual) PT INR POC ABG pH POC ABG pCO2 POC ABG pO2 Sodium Potassium Chloride BUN 6 L Creatinine 0.4 L Glucose POC Glucose Total Bilirubin 1.80 H AST Alkaline Phosphatase 153 H Ammonia 75.0 H Total Creatine Kinase Total Protein Albumin 3.2 L Urine pH 11/09/18 11/10/18 11/10/18 11:44 00:11 04:14 WBC Hgb MCH RDW Lymph % (Auto) Lymph # Seg Neutrophils % Monocytes % (Manual) Basophils % (Manual) Seg Neutrophils # Lymphocytes # (Manual) PT INR POC ABG pH POC ABG pCO2 POC ABG pO2 74 L Sodium Potassium Chloride BUN Creatinine Glucose POC Glucose 114 H 134 H Total Bilirubin AST Alkaline Phosphatase Ammonia Total Creatine Kinase Total Protein Albumin Urine pH 11/10/18 11/10/18 11/10/18 08:19 08:19 08:19 WBC 14.8 H Hgb MCH 26 L RDW 21.9 H Lymph % (Auto) Lymph # Seg Neutrophils % Monocytes % (Manual) Basophils % (Manual) Seg Neutrophils # Lymphocytes # (Manual) PT INR POC ABG pH POC ABG pCO2 POC ABG pO2 Sodium Potassium Chloride BUN Creatinine 0.5 L Glucose 117 H POC Glucose Total Bilirubin 1.30 H AST Alkaline Phosphatase 155 H Ammonia 62.0 H Total Creatine Kinase Total Protein 6.0 L Albumin 2.8 L Urine pH 11/11/18 11/11/18 11/11/18 00:02 04:16 04:46 WBC 12.2 H Hgb MCH 26 L RDW 22.4 H Lymph % (Auto) Lymph # Seg Neutrophils % Monocytes % (Manual) Basophils % (Manual) Seg Neutrophils # Lymphocytes # (Manual) PT INR POC ABG pH POC ABG pCO2 POC ABG pO2 58 L Sodium Potassium Chloride BUN Creatinine Glucose POC Glucose 112 H Total Bilirubin AST Alkaline Phosphatase Ammonia Total Creatine Kinase Total Protein Albumin Urine pH 11/11/18 11/11/18 11/11/18 04:46 04:46 05:50 WBC Hgb MCH RDW Lymph % (Auto) Lymph # Seg Neutrophils % Monocytes % (Manual) Basophils % (Manual) Seg Neutrophils # Lymphocytes # (Manual) PT 18.3 H INR 1.56 H POC ABG pH POC ABG pCO2 POC ABG pO2 Sodium Potassium Chloride BUN Creatinine 0.4 L Glucose 119 H POC Glucose 133 H Total Bilirubin AST Alkaline Phosphatase 152 H Ammonia Total Creatine Kinase Total Protein 6.1 L Albumin 2.8 L Urine pH 11/11/18 11/11/18 11/12/18 11:38 12:23 04:23 WBC Hgb 9.8 L MCH 26 L RDW 22.8 H Lymph % (Auto) Lymph # Seg Neutrophils % Monocytes % (Manual) Basophils % (Manual) Seg Neutrophils # Lymphocytes # (Manual) PT INR POC ABG pH POC ABG pCO2 34.7 L POC ABG pO2 57 L Sodium Potassium Chloride BUN Creatinine Glucose POC Glucose 123 H Total Bilirubin AST Alkaline Phosphatase Ammonia Total Creatine Kinase Total Protein Albumin Urine pH 11/12/18 11/12/18 11/13/18 04:23 11:24 04:03 WBC 4.1 L Hgb MCH 26 L RDW 22.7 H Lymph % (Auto) Lymph # Seg Neutrophils % Monocytes % (Manual) Basophils % (Manual) Seg Neutrophils # Lymphocytes # (Manual) PT INR POC ABG pH POC ABG pCO2 POC ABG pO2 Sodium Potassium Chloride 107.4 H BUN Creatinine 0.5 L Glucose 124 H POC Glucose 142 H Total Bilirubin AST Alkaline Phosphatase 163 H Ammonia Total Creatine Kinase Total Protein 5.9 L Albumin 2.8 L Urine pH 11/13/18 11/14/18 11/14/18 04:03 03:56 03:56 WBC Hgb 10.0 L MCH 26 L RDW 23.4 H Lymph % (Auto) Lymph # Seg Neutrophils % Monocytes % (Manual) Basophils % (Manual) Seg Neutrophils # Lymphocytes # (Manual) PT INR POC ABG pH POC ABG pCO2 POC ABG pO2 Sodium Potassium 3.2 L 3.5 L Chloride 109.1 H 107.9 H BUN Creatinine 0.4 L 0.3 L Glucose 109 H 118 H POC Glucose Total Bilirubin AST 59 H 57 H Alkaline Phosphatase 213 H 239 H Ammonia Total Creatine Kinase Total Protein 5.9 L 5.4 L Albumin 2.7 L 2.8 L Urine pH 11/15/18 11/15/18 11/15/18 05:28 05:28 11:34 WBC Hgb 9.8 L MCH 26 L RDW 23.3 H Lymph % (Auto) Lymph # Seg Neutrophils % Monocytes % (Manual) Basophils % (Manual) Seg Neutrophils # Lymphocytes # (Manual) PT INR POC ABG pH POC ABG pCO2 POC ABG pO2 Sodium Potassium Chloride 111.3 H BUN Creatinine 0.3 L Glucose 110 H POC Glucose 122 H Total Bilirubin AST Alkaline Phosphatase Ammonia Total Creatine Kinase Total Protein Albumin Urine pH 11/15/18 11/16/18 11/16/18 16:11 04:59 04:59 WBC Hgb MCH 26 L RDW 23.4 H Lymph % (Auto) Lymph # Seg Neutrophils % Monocytes % (Manual) Basophils % (Manual) Seg Neutrophils # Lymphocytes # (Manual) PT INR POC ABG pH POC ABG pCO2 POC ABG pO2 Sodium 146 H Potassium Chloride 110.4 H BUN Creatinine 0.4 L Glucose POC Glucose 127 H Total Bilirubin AST Alkaline Phosphatase Ammonia Total Creatine Kinase Total Protein Albumin Urine pH 11/16/18 11/19/18 04:59 04:36 WBC Hgb MCH RDW Lymph % (Auto) Lymph # Seg Neutrophils % Monocytes % (Manual) Basophils % (Manual) Seg Neutrophils # Lymphocytes # (Manual) PT 16.2 H INR 1.34 H POC ABG pH POC ABG pCO2 POC ABG pO2 Sodium Potassium 3.4 L Chloride 109.7 H BUN Creatinine 0.4 L Glucose POC Glucose Total Bilirubin AST 59 H Alkaline Phosphatase 309 H Ammonia Total Creatine Kinase Total Protein Albumin 3.0 L Urine pH Allied health notes reviewed: nursing
[2018-11-20] MEDS: ATIVAN IV PRN (21:54)
[2018-11-21] MEDS: CEPHULAC PO SCH ×4 (00:26→21:32)
[2018-11-21] MEDS: SODIUM CHLORIDE FLUSH SYRINGE 10 ML IV SCH ×3 (00:27→21:33)
[2018-11-21] MEDS: SYNTHROID PO SCH (05:40)
[2018-11-21] MEDS: PULMICORT IH SCH ×2 (08:45→20:20)
[2018-11-21] MEDS: BROVANA NEBU IH SCH ×2 (08:46→20:20)
--- NOTE | 2018-11-21 10:42 | Progress Note ---
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 As per staff, the patient was in her usual state of health at bedtime which was around 2030 hrs. Pt was found to be confused with decreased level of consciousness. EMS notified and upon arrival the patient was found to be in distress. Pt transported to [facility]. Pt seen and evaluated in ED and found to have Encephalopathy, and Acute Hypoxemic Respiratory Failure and was unable to protect her airway. Pt intubated and placed on vent support, admitted to ICU. She improved, extubated 11/11/18. ammonia improved, normalized on Lactulose. She is now awake,alert. She is however on high amount of Oxygen, on high flow nasal cannula. patient also has MRSA sputum and VRE Urine. 11/21/18 Now off high flow and on NC at 6lpm. Continue to wean off. Acute respiratory failure was intubated, on vent, now extubated 11/11 Now on Oxygen by high flow Oxygen continue to wean as tolerated Pulm following Hepatic encephalopathy with hyperammonia Improving, now awake,alert,oriented Continue Lactulose Consulted GI, following Alcoholic cirrhosis of liver GI following MRSA sputum Contact isolation VRE Urine, likely colonization Alcohol use Hypertension Monitor BP COPD Seizure disorder seizure precautions Continue Keppra and Lamictal. 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 still with diarrhea secondary to lactulose. Mental status is unchanged but per son, appears to be close to her baseline Hospitalist Physical - Physical exam Narrative exam: Gen: Not in acute distress, lying in bed, confused/delirium HEENT: Normocephalic, atraumatic Neck: supple, no JVD Heart: S1 and S2 reg, no murmurs, rubs or gallop Lungs: Clear, no crackles, no wheeze Abd: soft, non tender, non distended, normal BS Ext: No edema, no clubbing, no cyanosis, Neuro: Awake,alert, oriented to person only, moves all ext - Constitutional Vitals: Temp Pulse Resp BP Pulse Ox 97.5 F L 61 18 87/50 94 11/21/18 05:22 11/21/18 05:22 11/21/18 05:22 11/21/18 05:22 11/21/18 05:22 General appearance: Present: no acute distress Results - Labs CBC & Chem 7: 11/16/18 04:59 11/19/18 04:36 Labs: Laboratory Last Values WBC 4.8 K/mm3 (4.5-11.0) 11/16/18 04:59 RBC 4.08 M/mm3 (3.65-5.03) 11/16/18 04:59 Hgb 10.4 gm/dl (10.1-14.3) 11/16/18 04:59 Hct 33.4 % (30.3-42.9) 11/16/18 04:59 MCV 82 fl (79-97) 11/16/18 04:59 MCH 26 pg (28-32) L 11/16/18 04:59 MCHC 31 % (30-34) 11/16/18 04:59 RDW 23.4 % (13.2-15.2) H 11/16/18 04:59 Plt Count 235 K/mm3 (140-440) 11/16/18 04:59 Lymph % (Auto) 3.2 % (13.4-35.0) L 11/09/18 05:41 [place] % (Auto) 6.5 % (0.0-7.3) 11/09/18 05:41 Eos % (Auto) 0.3 % (0.0-4.3) 11/09/18 05:41 Baso % (Auto) 0.6 % (0.0-1.8) 11/09/18 05:41 Lymph # 0.3 K/mm3 (1.2-5.4) L 11/09/18 05:41 [place] # 0.7 K/mm3 (0.0-0.8) 11/09/18 05:41 Eos # 0.0 K/mm3 (0.0-0.4) 11/09/18 05:41 Baso # 0.1 K/mm3 (0.0-0.1) 11/09/18 05:41 Add Manual Diff Complete 11/08/18 11:47 Total Counted 100 11/08/18 11:47 Seg Neutrophils % 89.4 % (40.0-70.0) H 11/09/18 05:41 Seg Neuts % (Manual) 65.0 % (40.0-70.0) 11/08/18 11:47 0 % 11/08/18 11:47 17.0 % (13.4-35.0) 11/08/18 11:47 Reactive Lymphs % (Man) 0 % 11/08/18 11:47 13.0 % (0.0-7.3) H 11/08/18 11:47 2.0 % (0.0-4.3) 11/08/18 11:47 3.0 % (0.0-1.8) H 11/08/18 11:47 0 % 11/08/18 11:47 0 % 11/08/18 11:47 0 % 11/08/18 11:47 0 % 11/08/18 11:47 Nucleated RBC % Not Reportable 11/08/18 11:47 Seg Neutrophils # 9.6 K/mm3 (1.8-7.7) H 11/09/18 05:41 Seg Neutrophils # Man 2.2 K/mm3 (1.8-7.7) 11/08/18 11:47 Band Neutrophils # 0.0 K/mm3 11/08/18 11:47 0.6 K/mm3 (1.2-5.4) L 11/08/18 11:47 Abs React Lymphs (Man) 0.0 K/mm3 11/08/18 11:47 0.4 K/mm3 (0.0-0.8) 11/08/18 11:47 0.1 K/mm3 (0.0-0.4) 11/08/18 11:47 0.1 K/mm3 (0.0-0.1) 11/08/18 11:47 0.0 K/mm3 11/08/18 11:47 0.0 K/mm3 11/08/18 11:47 0.0 K/mm3 11/08/18 11:47 Blast Cells # 0.0 K/mm3 11/08/18 11:47 WBC Morphology Not Reportable 11/08/18 11:47 Hypersegmented Neuts Not Reportable 11/08/18 11:47 Hyposegmented Neuts Not Reportable 11/08/18 11:47 Hypogranular Neuts Not Reportable 11/08/18 11:47 Not Reportable 11/08/18 11:47 Not Reportable 11/08/18 11:47 Not Reportable 11/08/18 11:47 Not Reportable 11/08/18 11:47 Not Reportable 11/08/18 11:47 Not Reportable 11/08/18 11:47 Consistent w auto 11/08/18 11:47 Not Reportable 11/08/18 11:47 Plt Clumps, EDTA Not Reportable 11/08/18 11:47 Not Reportable 11/08/18 11:47 Few 11/08/18 11:47 Not Reportable 11/08/18 11:47 Plt Morphology Comment Not Reportable 11/08/18 11:47 RBC Morphology Not Reportable 11/08/18 11:47 Dimorphic RBCs Not Reportable 11/08/18 11:47 Not Reportable 11/08/18 11:47 Not Reportable 11/08/18 11:47 1+ 11/08/18 11:47 Few 11/08/18 11:47 Not Reportable 11/08/18 11:47 Not Reportable 11/08/18 11:47 Not Reportable 11/08/18 11:47 Not Reportable 11/08/18 11:47 Not Reportable 11/08/18 11:47 Not Reportable 11/08/18 11:47 Rare 11/08/18 11:47 Not Reportable 11/08/18 11:47 Not Reportable 11/08/18 11:47 Not Reportable 11/08/18 11:47 Not Reportable 11/08/18 11:47 Not Reportable 11/08/18 11:47 Not Reportable 11/08/18 11:47 Not Reportable 11/08/18 11:47 Few 11/08/18 11:47 Acanthocytes (Spur) Not Reportable 11/08/18 11:47 [place] Not Reportable 11/08/18 11:47 Not Reportable 11/08/18 11:47 Not Reportable 11/08/18 11:47 Not Reportable 11/08/18 11:47 Not Reportable 11/08/18 11:47 Hem Pathologist Commnt No 11/08/18 11:47 PT 16.2 Sec. (12.2-14.9) H 11/16/18 04:59 INR 1.34 (0.87-1.13) H 11/16/18 04:59 APTT 30.4 Sec. (24.2-36.6) 11/08/18 11:47 15.4 Sec. (15.1-19.6) 11/08/18 11:47 POC ABG pH 7.443 (7.35-7.45) 11/11/18 12:23 POC ABG pCO2 34.7 (35-45) L 11/11/18 12:23 POC ABG pO2 57 (80-105) L 11/11/18 12:23 POC ABG HCO3 23.8 (22-26 mml/L) 11/11/18 12:23 POC ABG Total CO2 25 (23-27mmol/L) 11/11/18 12:23 POC ABG O2 Sat 91 11/11/18 12:23 POC ABG Base Excess 0 ((-2) - (+3)mmol/L) 11/11/18 12:23 45 % 11/11/18 12:23 Sodium 143 mmol/L (137-145) 11/19/18 04:36 Potassium 3.4 mmol/L (3.6-5.0) L 11/19/18 04:36 Chloride 109.7 mmol/L (98-107) H 11/19/18 04:36 Carbon Dioxide 22 mmol/L (22-30) 11/19/18 04:36 15 mmol/L 11/19/18 04:36 BUN 7 mg/dL (7-17) 11/19/18 04:36 0.4 mg/dL (0.7-1.2) L 11/19/18 04:36 Estimated GFR > 60 ml/min 11/19/18 04:36 18 % 11/19/18 04:36 Glucose 95 mg/dL (65-100) 11/19/18 04:36 POC Glucose 127 (70-105) H 11/15/18 16:11 Lactic Acid 1.90 mmol/L (0.7-2.0) 11/09/18 13:15 Calcium 9.0 mg/dL (8.4-10.2) 11/19/18 04:36 Phosphorus 3.50 mg/dL (2.5-4.5) 11/14/18 08:51 Magnesium 1.70 mg/dL (1.7-2.3) 11/14/18 08:51 1.10 mg/dL (0.1-1.2) 11/19/18 04:36 AST 59 units/L (5-40) H 11/19/18 04:36 ALT 41 units/L (7-56) 11/19/18 04:36 309 units/L (35-129) H 11/19/18 04:36 44.0 umol/L (25-60) 11/15/18 08:21 27 units/L (30-135) L 11/08/18 11:47 CK-MB (CK-2) < 1.0 ng/mL (0.0-4.0) 11/08/18 11:47 CK-MB (CK-2) Rel Index 3.7 (0-4) 11/08/18 11:47 < 0.010 ng/mL (0.00-0.029) 11/08/18 11:47 0.60 mg/dL (0.00-1.30) 11/09/18 05:41 6.3 g/dL (6.3-8.2) 11/19/18 04:36 3.0 g/dL (3.9-5) L 11/19/18 04:36 0.9 % 11/19/18 04:36 TSH 2.370 mlU/mL (0.270-4.200) 11/08/18 11:47 Free T4 0.92 ng/dL (0.76-1.46) 11/08/18 11:47 [place] (Yellow) 11/08/18 12:00 Cloudy (Clear) 11/08/18 12:00 8.0 (5.0-7.0) H 11/08/18 12:00 Ur Specific [place] 1.017 (1.003-1.030) 11/08/18 12:00 <15 mg/dl mg/dL (Negative) 11/08/18 12:00 Neg mg/dL (Negative) 11/08/18 12:00 Neg mg/dL (Negative) 11/08/18 12:00 Neg (Negative) 11/08/18 12:00 Neg (Negative) 11/08/18 12:00 Neg (Negative) 11/08/18 12:00 < 2.0 mg/dL (<2.0) 11/08/18 12:00 Ur Leukocyte Esterase Neg (Negative) 11/08/18 12:00 4.0 /HPF (0.0-6.0) 11/08/18 12:00 2.0 /HPF (0.0-6.0) 11/08/18 12:00 U Epithel Cells (Auto) 1.0 /HPF (0-13.0) 11/08/18 12:00 3+ /HPF (Negative) 11/08/18 12:00 Few /HPF 11/08/18 12:00 Vancomycin Trough 10.6 ug/mL (5.0-20.0) 11/15/18 05:28 Plasma/Serum Alcohol < 0.01 % (0-0.07) 11/08/18 11:47 Active Medications - Current Medications Current Medications: Generic Name Dose Route Start Last Admin Trade Name Freq PRN Reason Stop Dose Admin Albuterol 2.5 mg 11/16/18 13:46 Proventil IH Q6HRT PRN Dyspnea Lipase/Protease/Amylase 1 each 11/08/18 15:[address] 10,500 Unit FEEDTUBE PRN PRN For Clogged Feeding Tube Arformoterol Tartrate 15 mcg 11/16/18 20:00 11/21/18 08:46 Brovana Nebu IH 15 mcg Q12HRT HUONG Administration Budesonide 0.5 mg 11/16/18 20:00 11/21/18 08:45 Pulmicort IH 0.5 mg Q12HRT HUONG Administration Famotidine 20 mg 11/15/18 10:00 11/20/18 21:54 Pepcid PO 20 mg BID HUONG Administration Fluticasone Propionate 50 mcg 11/09/18 10:00 11/20/18 11:23 Flonase NS 50 mcg QDAY HUONG Administration Folic Acid 1 mg 11/09/18 10:00 11/20/18 11:23 Folvite PO 1 mg QDAY HUONG Administration Hydrophilic Ointment 1 applic 11/08/18 11:37 Vaseline Lip Therapy TP Q2HR PRN Dry Lips Lactulose 30 gm 11/08/18 20:00 11/21/18 00:26 Cephulac PO 30 gm TID HUONG Administration Lamotrigine 25 mg 11/08/18 22:00 11/20/18 21:53 Lamictal PO 25 mg BID HUONG Administration Levetiracetam 1,500 mg 11/08/18 22:00 11/20/18 21:54 Keppra PO 1,500 mg BID HUONG Administration Levothyroxine Sodium 75 mcg 11/09/18 06:00 11/21/18 05:40 Synthroid PO 75 mcg DAILY@0600 HUONG Administration Lorazepam 2 mg 11/08/18 14:18 11/20/18 21:54 Ativan IV 2 mg Q1HR PRN Administration CIWA-Ar 8-15 Multi-Ingred Cream/Lotion/Oil/Oint 1 applic 11/08/18 11:37 Artificial Tears Ophth Oint OU Q4HR PRN Dry Eye(s) Multivitamins 1 each 11/09/18 10:00 11/20/18 11:21 Theragran Tab PO 1 each DAILY HUONG Administration Ondansetron HCl 4 mg 11/11/18 13:20 Zofran IV Q8H PRN Nausea And Vomiting Propranolol HCl 40 mg 11/09/18 10:00 11/20/18 11:42 Inderal PO 40 mg QDAY HUONG Administration Rifaximin 550 mg 11/08/18 22:00 11/20/18 21:54 Xifaxan PO 550 mg BID HUONG Administration Simple Syrup 15 ml 11/08/18 15:47 Simple Syrup FEEDTUBE PRN PRN Hypoglycemia Simple Syrup 30 ml 11/08/18 15:47 Simple Syrup FEEDTUBE PRN PRN Hypoglycemia Sodium Bicarbonate 325 mg 11/08/18 15:47 Sodium Bicarbonate FEEDTUBE PRN PRN For Clogged Feeding Tube Sodium Chloride 5 ml 11/08/18 11:37 Nacl 0.9% 500 Ml IV DIRECT PRN [employer] Sodium Chloride 10 ml 11/08/18 22:00 11/21/18 00:27 Sodium Chloride Flush Syringe 10 Ml IV 10 ml BID HUONG Administration Sodium Chloride 10 ml 11/08/18 13:32 Sodium Chloride Flush Syringe 10 Ml IV PRN PRN LINE FLUSH Spironolactone 100 mg 11/09/18 10:00 11/20/18 11:22 Aldactone PO 100 mg QDAY HUONG Administration Thiamine HCl 100 mg 11/09/18 10:00 11/20/18 11:22 Vitamin B-1 PO 100 mg QDAY HUONG Administration Nutrition/Malnutrition Assess - Dietary Evaluation Nutrition/Malnutrition Findings: Nutrition Notes Start: 11/08/18 15:38 Freq: Status: Active Protocol: Document 11/19/18 16:25 RM (Rec: 11/19/18 16:30 RM [id number]) Nutrition Notes Initial or Follow up Reassessment Current Diagnosis COPD,Hypertension Other Pertinent Diagnosis Hx CVA,GERD, Dementia, ESLD Current Diet GI soft w/Ensure Enlive Labs/Tests Reviewed Pertinent Medications Reviewed Height 5 ft 8 in Weight 53.5 kg [place] Body Weight (kg) 63.63 BMI 17.9 Weight change and time frame Noted wt change. Unable to obtain wt from bedscale. Subjective/Other Information Pt moved to and diet advanced. Pt confused and eating lunch at time of visit. 25% of lunch and 25% of Ensure Enlive bottle consumed by time of visit. Noted another unopened Ensure Enlive at bedside. Percent of energy/protein needs met: 32%/39% Burn Absent Trauma Absent #1 Nutrition Diagnosis Inadequate oral intake As Evidenced by Signs and Symptoms pt meeting 32% of calorie and 39% of protein needs via PO intakes Diagnosis Progress(for reassessment Improved documentation) Is patient on ventilator? No Is Patient Ambulatory and/or Out of Bed No REE-([facility]-confined to bed) 1383.420 Kcal/Kg value to use for calculation 35 Approximate Energy Requirements Using 1873 kcal/Kg Calculation Used for Recommendations Kcal/kg Additional Notes Protein Needs: 64-86g (1.2-1. 6g/kg) Fluid Needs: 1 ml/kcal Nutrition Intervention Nutrition Support: D/C'd Add Supplement/Snack (indicate name/kcal Ensure Enlive 1 daily /protein ) Provides kCal: 350 Provides Protein (gm) 20 Goal #1 Meet at least 75% of calorie and protein needs via PO and ONS intakes Anticipated Discharge Needs: Unable to determine at this time Follow-Up By: 11/22/18 Additional Comments Follow for PO and ONS intakes
[2018-11-21] MEDS: FLONASE NS SCH (12:30)
[2018-11-21] MEDS: THERAGRAN Tab PO SCH (12:31)
[2018-11-21] MEDS: PEPCID PO SCH ×2 (12:31→21:32)
[2018-11-21] MEDS: VITAMIN B-1 PO SCH (12:31)
[2018-11-21] MEDS: ALDACTONE PO SCH (12:31)
[2018-11-21] MEDS: FOLVITE PO SCH (12:32)
[2018-11-21] MEDS: XIFAXAN PO SCH ×2 (12:32→21:32)
[2018-11-21] MEDS: LaMICtal PO SCH ×2 (12:32→21:32)
[2018-11-21] MEDS: KEPPRA PO SCH ×2 (12:50→21:32)
[2018-11-21] MEDS: INDERAL PO SCH (13:00)
--- NOTE | 2018-11-21 15:00 | Progress Note ---
Assessment and Plan Patient sleeping on 4 litres O2 and O2 saturation running 93%. No acute respiratory distress.Patient afebrile.Blood pressure 100/56. - Patient Problems (1) COPD (chronic obstructive pulmonary disease) Current Visit: Yes Status: Acute Qualifiers: Chronic bronchitis type: mixed simple and mucopurulent Plan to address problem: O2 supplementation , 4 litres via nasal canula. Albuterol/atrovent aerosol treatments q 6 hours prn for shortness of breath. Brovanna/Budesonide aerosol treatments q 12 hours. Continue Famotidine. SCDs. (2) CAD (coronary artery disease) Current Visit: Yes Status: Acute Qualifiers: Associated angina: without angina Plan to address problem: Management as per cardiology. (3) EtOH dependence Current Visit: Yes Status: Acute Qualifiers: Complication of substance-induced condition: with unspecified complication Plan to address problem: Management as per primary care. (4) Altered mental status Current Visit: Yes Status: Acute Plan to address problem: Management as per primary care and neurology. (5) Hepatic encephalopathy syndrome Current Visit: Yes Status: Acute Plan to address problem: Management as per primary care and gastroenterology. (6) Hypothyroid Current Visit: Yes Status: Acute Qualifiers: Hypothyroidism type: unspecified Qualified Code(s): E03.9 - Hypothyroidism, unspecified Plan to address problem: Patient is on Levothyroxine. Management as per primary care. (7) Respiratory failure Current Visit: Yes Status: Acute Qualifiers: Plan to address problem: O2 4 litres via nasal canula. Albuterol/atrovent aerosol treatments q 6 hours Prn for shortness of breath. Brovanna/Budesonide aerosol treatments q 12 hours. Continue Famotidine. SCDs. Subjective Date of service: 11/21/18 Principal diagnosis: Ac hypoxemic resp failure; Hepatic encephalopathy; Coagulopathy; Sz disord Interval history: Patient sleeping on 4 litres O2 and O2 saturation running 93%. No acute respiratory distress.Patient afebrile.Blood pressure 100/56. Objective Vital Signs - 12hr 11/21/18 11/21/18 11/21/18 05:22 08:46 08:56 Temperature 97.5 F L Pulse Rate 61 Pulse Rate [ 64 68 Anterior Bilateral Throughout] Respiratory 18 Rate Respiratory 18 18 Rate [Anterior Bilateral Throughout] Blood Pressure 87/50 O2 Sat by Pulse 94 94 Oximetry 11/21/18 11/21/18 11:41 13:00 Temperature 97.8 F Pulse Rate 66 66 Pulse Rate [ Anterior Bilateral Throughout] Respiratory 16 Rate Respiratory Rate [Anterior Bilateral Throughout] Blood Pressure 100/56 100/56 O2 Sat by Pulse 93 Oximetry Constitutional: no acute distress, asleep Eyes: non-icteric ENT: oropharynx moist, other (extubated) Neck: supple, no lymphadenopathy, no JVD, other (no thyromegaly) Effort: mildly labored Ascultation: Bilateral: rales, rhonchi Percussion: Bilateral: not dull Cardiovascular: regular rate and rhythm Gastrointestinal: normoactive bowel sounds, soft, non-tender, non-distended Integumentary: rash, other (spider naevi) Extremities: no cyanosis, no edema, pulses normal, no ischemia or petechiae Neurologic: non-focal exam (grossly), pupils equal and round, CN II-XII normal, motor strength normal and Psychiatric: mood appropriate, affect normal CBC and BMP: 11/16/18 04:59 11/19/18 04:36 ABG, PT/INR, D-dimer: ABG POC ABG pH 7.443 (7.35-7.45) 11/11/18 12:23 POC ABG pCO2 34.7 (35-45) L 11/11/18 12:23 POC ABG pO2 57 (80-105) L 11/11/18 12:23 POC ABG HCO3 23.8 (22-26 mml/L) 11/11/18 12:23 POC ABG Total CO2 25 (23-27mmol/L) 11/11/18 12:23 POC ABG O2 Sat 91 11/11/18 12:23 PT/INR, D-dimer PT 16.2 Sec. (12.2-14.9) H 11/16/18 04:59 INR 1.34 (0.87-1.13) H 11/16/18 04:59 Abnormal lab findings: Abnormal Labs 11/08/18 11/08/18 11/08/18 11:47 11:47 11:47 WBC 3.4 L Hgb MCH 26 L RDW 21.6 H Lymph % (Auto) Lymph # Seg Neutrophils % Monocytes % (Manual) 13.0 H Basophils % (Manual) 3.0 H Seg Neutrophils # Lymphocytes # (Manual) 0.6 L PT 17.3 H INR 1.45 H POC ABG pH POC ABG pCO2 POC ABG pO2 Sodium Potassium Chloride BUN Creatinine 0.6 L Glucose 130 H POC Glucose Total Bilirubin 1.50 H AST Alkaline Phosphatase 140 H Ammonia Total Creatine Kinase 27 L Total Protein 6.0 L Albumin 3.0 L Urine pH 11/08/18 11/08/18 11/08/18 11:47 12:00 14:01 WBC Hgb MCH RDW Lymph % (Auto) Lymph # Seg Neutrophils % Monocytes % (Manual) Basophils % (Manual) Seg Neutrophils # Lymphocytes # (Manual) PT INR POC ABG pH 7.452 H POC ABG pCO2 32.8 L POC ABG pO2 127 H Sodium Potassium Chloride BUN Creatinine Glucose POC Glucose Total Bilirubin AST Alkaline Phosphatase Ammonia 123.0 H Total Creatine Kinase Total Protein Albumin Urine pH 8.0 H 11/08/18 11/08/18 11/09/18 14:34 15:13 04:31 WBC Hgb MCH RDW Lymph % (Auto) Lymph # Seg Neutrophils % Monocytes % (Manual) Basophils % (Manual) Seg Neutrophils # Lymphocytes # (Manual) PT INR POC ABG pH 7.468 H POC ABG pCO2 POC ABG pO2 76 L 73 L Sodium Potassium Chloride BUN Creatinine Glucose POC Glucose 112 H Total Bilirubin AST Alkaline Phosphatase Ammonia Total Creatine Kinase Total Protein Albumin Urine pH 11/09/18 11/09/18 11/09/18 05:41 05:41 05:41 WBC Hgb MCH 26 L RDW 21.5 H Lymph % (Auto) 3.2 L Lymph # 0.3 L Seg Neutrophils % 89.4 H Monocytes % (Manual) Basophils % (Manual) Seg Neutrophils # 9.6 H Lymphocytes # (Manual) PT INR POC ABG pH POC ABG pCO2 POC ABG pO2 Sodium Potassium Chloride BUN 6 L Creatinine 0.4 L Glucose POC Glucose Total Bilirubin 1.80 H AST Alkaline Phosphatase 153 H Ammonia 75.0 H Total Creatine Kinase Total Protein Albumin 3.2 L Urine pH 11/09/18 11/10/18 11/10/18 11:44 00:11 04:14 WBC Hgb MCH RDW Lymph % (Auto) Lymph # Seg Neutrophils % Monocytes % (Manual) Basophils % (Manual) Seg Neutrophils # Lymphocytes # (Manual) PT INR POC ABG pH POC ABG pCO2 POC ABG pO2 74 L Sodium Potassium Chloride BUN Creatinine Glucose POC Glucose 114 H 134 H Total Bilirubin AST Alkaline Phosphatase Ammonia Total Creatine Kinase Total Protein Albumin Urine pH 11/10/18 11/10/18 11/10/18 08:19 08:19 08:19 WBC 14.8 H Hgb MCH 26 L RDW 21.9 H Lymph % (Auto) Lymph # Seg Neutrophils % Monocytes % (Manual) Basophils % (Manual) Seg Neutrophils # Lymphocytes # (Manual) PT INR POC ABG pH POC ABG pCO2 POC ABG pO2 Sodium Potassium Chloride BUN Creatinine 0.5 L Glucose 117 H POC Glucose Total Bilirubin 1.30 H AST Alkaline Phosphatase 155 H Ammonia 62.0 H Total Creatine Kinase Total Protein 6.0 L Albumin 2.8 L Urine pH 11/11/18 11/11/18 11/11/18 00:02 04:16 04:46 WBC 12.2 H Hgb MCH 26 L RDW 22.4 H Lymph % (Auto) Lymph # Seg Neutrophils % Monocytes % (Manual) Basophils % (Manual) Seg Neutrophils # Lymphocytes # (Manual) PT INR POC ABG pH POC ABG pCO2 POC ABG pO2 58 L Sodium Potassium Chloride BUN Creatinine Glucose POC Glucose 112 H Total Bilirubin AST Alkaline Phosphatase Ammonia Total Creatine Kinase Total Protein Albumin Urine pH 11/11/18 11/11/18 11/11/18 04:46 04:46 05:50 WBC Hgb MCH RDW Lymph % (Auto) Lymph # Seg Neutrophils % Monocytes % (Manual) Basophils % (Manual) Seg Neutrophils # Lymphocytes # (Manual) PT 18.3 H INR 1.56 H POC ABG pH POC ABG pCO2 POC ABG pO2 Sodium Potassium Chloride BUN Creatinine 0.4 L Glucose 119 H POC Glucose 133 H Total Bilirubin AST Alkaline Phosphatase 152 H Ammonia Total Creatine Kinase Total Protein 6.1 L Albumin 2.8 L Urine pH 11/11/18 11/11/18 11/12/18 11:38 12:23 04:23 WBC Hgb 9.8 L MCH 26 L RDW 22.8 H Lymph % (Auto) Lymph # Seg Neutrophils % Monocytes % (Manual) Basophils % (Manual) Seg Neutrophils # Lymphocytes # (Manual) PT INR POC ABG pH POC ABG pCO2 34.7 L POC ABG pO2 57 L Sodium Potassium Chloride BUN Creatinine Glucose POC Glucose 123 H Total Bilirubin AST Alkaline Phosphatase Ammonia Total Creatine Kinase Total Protein Albumin Urine pH 11/12/18 11/12/18 11/13/18 04:23 11:24 04:03 WBC 4.1 L Hgb MCH 26 L RDW 22.7 H Lymph % (Auto) Lymph # Seg Neutrophils % Monocytes % (Manual) Basophils % (Manual) Seg Neutrophils # Lymphocytes # (Manual) PT INR POC ABG pH POC ABG pCO2 POC ABG pO2 Sodium Potassium Chloride 107.4 H BUN Creatinine 0.5 L Glucose 124 H POC Glucose 142 H Total Bilirubin AST Alkaline Phosphatase 163 H Ammonia Total Creatine Kinase Total Protein 5.9 L Albumin 2.8 L Urine pH 11/13/18 11/14/18 11/14/18 04:03 03:56 03:56 WBC Hgb 10.0 L MCH 26 L RDW 23.4 H Lymph % (Auto) Lymph # Seg Neutrophils % Monocytes % (Manual) Basophils % (Manual) Seg Neutrophils # Lymphocytes # (Manual) PT INR POC ABG pH POC ABG pCO2 POC ABG pO2 Sodium Potassium 3.2 L 3.5 L Chloride 109.1 H 107.9 H BUN Creatinine 0.4 L 0.3 L Glucose 109 H 118 H POC Glucose Total Bilirubin AST 59 H 57 H Alkaline Phosphatase 213 H 239 H Ammonia Total Creatine Kinase Total Protein 5.9 L 5.4 L Albumin 2.7 L 2.8 L Urine pH 11/15/18 11/15/18 11/15/18 05:28 05:28 11:34 WBC Hgb 9.8 L MCH 26 L RDW 23.3 H Lymph % (Auto) Lymph # Seg Neutrophils % Monocytes % (Manual) Basophils % (Manual) Seg Neutrophils # Lymphocytes # (Manual) PT INR POC ABG pH POC ABG pCO2 POC ABG pO2 Sodium Potassium Chloride 111.3 H BUN Creatinine 0.3 L Glucose 110 H POC Glucose 122 H Total Bilirubin AST Alkaline Phosphatase Ammonia Total Creatine Kinase Total Protein Albumin Urine pH 11/15/18 11/16/18 11/16/18 16:11 04:59 04:59 WBC Hgb MCH 26 L RDW 23.4 H Lymph % (Auto) Lymph # Seg Neutrophils % Monocytes % (Manual) Basophils % (Manual) Seg Neutrophils # Lymphocytes # (Manual) PT INR POC ABG pH POC ABG pCO2 POC ABG pO2 Sodium 146 H Potassium Chloride 110.4 H BUN Creatinine 0.4 L Glucose POC Glucose 127 H Total Bilirubin AST Alkaline Phosphatase Ammonia Total Creatine Kinase Total Protein Albumin Urine pH 11/16/18 11/19/18 04:59 04:36 WBC Hgb MCH RDW Lymph % (Auto) Lymph # Seg Neutrophils % Monocytes % (Manual) Basophils % (Manual) Seg Neutrophils # Lymphocytes # (Manual) PT 16.2 H INR 1.34 H POC ABG pH POC ABG pCO2 POC ABG pO2 Sodium Potassium 3.4 L Chloride 109.7 H BUN Creatinine 0.4 L Glucose POC Glucose Total Bilirubin AST 59 H Alkaline Phosphatase 309 H Ammonia Total Creatine Kinase Total Protein Albumin 3.0 L Urine pH Allied health notes reviewed: nursing
[2018-11-22] MEDS: SYNTHROID PO SCH (06:51)
[2018-11-22] MEDS: CEPHULAC PO SCH ×3 (08:00→22:41)
[2018-11-22] MEDS: PULMICORT IH SCH ×2 (08:16→21:55)
[2018-11-22] MEDS: BROVANA NEBU IH SCH ×2 (08:16→21:55)
[2018-11-22] MEDS: SODIUM CHLORIDE FLUSH SYRINGE 10 ML IV SCH ×2 (09:02→22:47)
[2018-11-22] MEDS: FLONASE NS SCH (09:03)
[2018-11-22] MEDS: KEPPRA PO SCH ×2 (09:04→22:42)
[2018-11-22] MEDS: XIFAXAN PO SCH ×2 (09:04→22:41)
[2018-11-22] MEDS: VITAMIN B-1 PO SCH (09:04)
[2018-11-22] MEDS: LaMICtal PO SCH ×2 (09:04→22:41)
[2018-11-22] MEDS: ALDACTONE PO SCH (09:04)
[2018-11-22] MEDS: THERAGRAN Tab PO SCH (09:05)
[2018-11-22] MEDS: INDERAL PO SCH (09:06)
[2018-11-22] MEDS: FOLVITE PO SCH (09:06)
[2018-11-22] MEDS: PEPCID PO SCH ×2 (09:06→22:41)
--- NOTE | 2018-11-22 16:09 | Progress Note ---
Assessment and Plan Patient resting on 5 litres O2 with BIPAP on standby and O2 saturation running 93%. No acute respiratory distress.Patient running a low grade temperature . No leukocytosis. Blood pressure 106/56. - Patient Problems (1) COPD (chronic obstructive pulmonary disease) Current Visit: Yes Status: Acute Qualifiers: Chronic bronchitis type: mixed simple and mucopurulent Plan to address problem: O2 supplementation , 5 litres via nasal canula. BIPAP on standby in the room. Albuterol/atrovent aerosol treatments q 6 hours prn for shortness of breath. Brovanna/Budesonide aerosol treatments q 12 hours. Continue Famotidine. SCDs. (2) CAD (coronary artery disease) Current Visit: Yes Status: Acute Qualifiers: Associated angina: without angina Plan to address problem: Management as per cardiology. (3) EtOH dependence Current Visit: Yes Status: Acute Qualifiers: Complication of substance-induced condition: with unspecified complication Plan to address problem: Management as per primary care. (4) Altered mental status Current Visit: Yes Status: Acute Plan to address problem: Management as per primary care and neurology. (5) Hepatic encephalopathy syndrome Current Visit: Yes Status: Acute Plan to address problem: Management as per primary care and gastroenterology. (6) Hypothyroid Current Visit: Yes Status: Acute Qualifiers: Hypothyroidism type: unspecified Qualified Code(s): E03.9 - Hypothyroidism, unspecified Plan to address problem: Patient is on Levothyroxine. Management as per primary care. (7) Respiratory failure Current Visit: Yes Status: Acute Qualifiers: Plan to address problem: O2 5 litres via nasal canula. BIPAP on stanby in the room. Albuterol/atrovent aerosol treatments q 6 hours Prn for shortness of breath. Brovanna/Budesonide aerosol treatments q 12 hours. Continue Famotidine. SCDs. Subjective Date of service: 11/22/18 Principal diagnosis: Hepatic encephalopathy Interval history: Patient resting on 5 litres O2 with BIPAP on standby and O2 saturation running 93%. No acute respiratory distress.Patient running a low grade temperature . No leukocytosis. Blood pressure 106/56. Objective Vital Signs - 12hr 11/22/18 11/22/18 11/22/18 05:37 08:16 08:26 Temperature 99.2 F Pulse Rate 99 H Pulse Rate [ 90 89 Anterior Bilateral Throughout] Respiratory 20 Rate Respiratory 18 18 Rate [Anterior Bilateral Throughout] Blood Pressure 106/56 O2 Sat by Pulse 89 93 Oximetry Constitutional: no acute distress, asleep, other (elderly and chronically ill looking CF, normocephalic with mildly increase resp effort on NIPPV) Eyes: non-icteric ENT: other (on BIPAP) Neck: supple, no lymphadenopathy, no JVD, other (no thyromegaly) Effort: mildly labored Ascultation: Bilateral: rales, rhonchi Percussion: Bilateral: not dull Cardiovascular: regular rate and rhythm, other (S1,S2, no murmurs, no gallops or rubs) Gastrointestinal: normoactive bowel sounds, soft, non-tender, non-distended Integumentary: rash, other (spider naevi) Extremities: no cyanosis, no edema, pulses normal, no ischemia or petechiae Neurologic: normal mental status, non-focal exam (grossly), pupils equal and round, motor strength normal and Psychiatric: mood appropriate, affect normal CBC and BMP: 11/16/18 04:59 11/19/18 04:36 ABG, PT/INR, D-dimer: ABG POC ABG pH 7.443 (7.35-7.45) 11/11/18 12:23 POC ABG pCO2 34.7 (35-45) L 11/11/18 12:23 POC ABG pO2 57 (80-105) L 11/11/18 12:23 POC ABG HCO3 23.8 (22-26 mml/L) 11/11/18 12:23 POC ABG Total CO2 25 (23-27mmol/L) 11/11/18 12:23 POC ABG O2 Sat 91 11/11/18 12:23 PT/INR, D-dimer PT 16.2 Sec. (12.2-14.9) H 11/16/18 04:59 INR 1.34 (0.87-1.13) H 11/16/18 04:59 Abnormal lab findings: Abnormal Labs 11/08/18 11/08/18 11/08/18 11:47 11:47 11:47 WBC 3.4 L Hgb MCH 26 L RDW 21.6 H Lymph % (Auto) Lymph # Seg Neutrophils % Monocytes % (Manual) 13.0 H Basophils % (Manual) 3.0 H Seg Neutrophils # Lymphocytes # (Manual) 0.6 L PT 17.3 H INR 1.45 H POC ABG pH POC ABG pCO2 POC ABG pO2 Sodium Potassium Chloride BUN Creatinine 0.6 L Glucose 130 H POC Glucose Total Bilirubin 1.50 H AST Alkaline Phosphatase 140 H Ammonia Total Creatine Kinase 27 L Total Protein 6.0 L Albumin 3.0 L Urine pH 11/08/18 11/08/18 11/08/18 11:47 12:00 14:01 WBC Hgb MCH RDW Lymph % (Auto) Lymph # Seg Neutrophils % Monocytes % (Manual) Basophils % (Manual) Seg Neutrophils # Lymphocytes # (Manual) PT INR POC ABG pH 7.452 H POC ABG pCO2 32.8 L POC ABG pO2 127 H Sodium Potassium Chloride BUN Creatinine Glucose POC Glucose Total Bilirubin AST Alkaline Phosphatase Ammonia 123.0 H Total Creatine Kinase Total Protein Albumin Urine pH 8.0 H 11/08/18 11/08/18 11/09/18 14:34 15:13 04:31 WBC Hgb MCH RDW Lymph % (Auto) Lymph # Seg Neutrophils % Monocytes % (Manual) Basophils % (Manual) Seg Neutrophils # Lymphocytes # (Manual) PT INR POC ABG pH 7.468 H POC ABG pCO2 POC ABG pO2 76 L 73 L Sodium Potassium Chloride BUN Creatinine Glucose POC Glucose 112 H Total Bilirubin AST Alkaline Phosphatase Ammonia Total Creatine Kinase Total Protein Albumin Urine pH 11/09/18 11/09/18 11/09/18 05:41 05:41 05:41 WBC Hgb MCH 26 L RDW 21.5 H Lymph % (Auto) 3.2 L Lymph # 0.3 L Seg Neutrophils % 89.4 H Monocytes % (Manual) Basophils % (Manual) Seg Neutrophils # 9.6 H Lymphocytes # (Manual) PT INR POC ABG pH POC ABG pCO2 POC ABG pO2 Sodium Potassium Chloride BUN 6 L Creatinine 0.4 L Glucose POC Glucose Total Bilirubin 1.80 H AST Alkaline Phosphatase 153 H Ammonia 75.0 H Total Creatine Kinase Total Protein Albumin 3.2 L Urine pH 11/09/18 11/10/18 11/10/18 11:44 00:11 04:14 WBC Hgb MCH RDW Lymph % (Auto) Lymph # Seg Neutrophils % Monocytes % (Manual) Basophils % (Manual) Seg Neutrophils # Lymphocytes # (Manual) PT INR POC ABG pH POC ABG pCO2 POC ABG pO2 74 L Sodium Potassium Chloride BUN Creatinine Glucose POC Glucose 114 H 134 H Total Bilirubin AST Alkaline Phosphatase Ammonia Total Creatine Kinase Total Protein Albumin Urine pH 11/10/18 11/10/18 11/10/18 08:19 08:19 08:19 WBC 14.8 H Hgb MCH 26 L RDW 21.9 H Lymph % (Auto) Lymph # Seg Neutrophils % Monocytes % (Manual) Basophils % (Manual) Seg Neutrophils # Lymphocytes # (Manual) PT INR POC ABG pH POC ABG pCO2 POC ABG pO2 Sodium Potassium Chloride BUN Creatinine 0.5 L Glucose 117 H POC Glucose Total Bilirubin 1.30 H AST Alkaline Phosphatase 155 H Ammonia 62.0 H Total Creatine Kinase Total Protein 6.0 L Albumin 2.8 L Urine pH 11/11/18 11/11/18 11/11/18 00:02 04:16 04:46 WBC 12.2 H Hgb MCH 26 L RDW 22.4 H Lymph % (Auto) Lymph # Seg Neutrophils % Monocytes % (Manual) Basophils % (Manual) Seg Neutrophils # Lymphocytes # (Manual) PT INR POC ABG pH POC ABG pCO2 POC ABG pO2 58 L Sodium Potassium Chloride BUN Creatinine Glucose POC Glucose 112 H Total Bilirubin AST Alkaline Phosphatase Ammonia Total Creatine Kinase Total Protein Albumin Urine pH 11/11/18 11/11/18 11/11/18 04:46 04:46 05:50 WBC Hgb MCH RDW Lymph % (Auto) Lymph # Seg Neutrophils % Monocytes % (Manual) Basophils % (Manual) Seg Neutrophils # Lymphocytes # (Manual) PT 18.3 H INR 1.56 H POC ABG pH POC ABG pCO2 POC ABG pO2 Sodium Potassium Chloride BUN Creatinine 0.4 L Glucose 119 H POC Glucose 133 H Total Bilirubin AST Alkaline Phosphatase 152 H Ammonia Total Creatine Kinase Total Protein 6.1 L Albumin 2.8 L Urine pH 11/11/18 11/11/18 11/12/18 11:38 12:23 04:23 WBC Hgb 9.8 L MCH 26 L RDW 22.8 H Lymph % (Auto) Lymph # Seg Neutrophils % Monocytes % (Manual) Basophils % (Manual) Seg Neutrophils # Lymphocytes # (Manual) PT INR POC ABG pH POC ABG pCO2 34.7 L POC ABG pO2 57 L Sodium Potassium Chloride BUN Creatinine Glucose POC Glucose 123 H Total Bilirubin AST Alkaline Phosphatase Ammonia Total Creatine Kinase Total Protein Albumin Urine pH 11/12/18 11/12/18 11/13/18 04:23 11:24 04:03 WBC 4.1 L Hgb MCH 26 L RDW 22.7 H Lymph % (Auto) Lymph # Seg Neutrophils % Monocytes % (Manual) Basophils % (Manual) Seg Neutrophils # Lymphocytes # (Manual) PT INR POC ABG pH POC ABG pCO2 POC ABG pO2 Sodium Potassium Chloride 107.4 H BUN Creatinine 0.5 L Glucose 124 H POC Glucose 142 H Total Bilirubin AST Alkaline Phosphatase 163 H Ammonia Total Creatine Kinase Total Protein 5.9 L Albumin 2.8 L Urine pH 11/13/18 11/14/18 11/14/18 04:03 03:56 03:56 WBC Hgb 10.0 L MCH 26 L RDW 23.4 H Lymph % (Auto) Lymph # Seg Neutrophils % Monocytes % (Manual) Basophils % (Manual) Seg Neutrophils # Lymphocytes # (Manual) PT INR POC ABG pH POC ABG pCO2 POC ABG pO2 Sodium Potassium 3.2 L 3.5 L Chloride 109.1 H 107.9 H BUN Creatinine 0.4 L 0.3 L Glucose 109 H 118 H POC Glucose Total Bilirubin AST 59 H 57 H Alkaline Phosphatase 213 H 239 H Ammonia Total Creatine Kinase Total Protein 5.9 L 5.4 L Albumin 2.7 L 2.8 L Urine pH 11/15/18 11/15/18 11/15/18 05:28 05:28 11:34 WBC Hgb 9.8 L MCH 26 L RDW 23.3 H Lymph % (Auto) Lymph # Seg Neutrophils % Monocytes % (Manual) Basophils % (Manual) Seg Neutrophils # Lymphocytes # (Manual) PT INR POC ABG pH POC ABG pCO2 POC ABG pO2 Sodium Potassium Chloride 111.3 H BUN Creatinine 0.3 L Glucose 110 H POC Glucose 122 H Total Bilirubin AST Alkaline Phosphatase Ammonia Total Creatine Kinase Total Protein Albumin Urine pH 11/15/18 11/16/18 11/16/18 16:11 04:59 04:59 WBC Hgb MCH 26 L RDW 23.4 H Lymph % (Auto) Lymph # Seg Neutrophils % Monocytes % (Manual) Basophils % (Manual) Seg Neutrophils # Lymphocytes # (Manual) PT INR POC ABG pH POC ABG pCO2 POC ABG pO2 Sodium 146 H Potassium Chloride 110.4 H BUN Creatinine 0.4 L Glucose POC Glucose 127 H Total Bilirubin AST Alkaline Phosphatase Ammonia Total Creatine Kinase Total Protein Albumin Urine pH 11/16/18 11/19/18 04:59 04:36 WBC Hgb MCH RDW Lymph % (Auto) Lymph # Seg Neutrophils % Monocytes % (Manual) Basophils % (Manual) Seg Neutrophils # Lymphocytes # (Manual) PT 16.2 H INR 1.34 H POC ABG pH POC ABG pCO2 POC ABG pO2 Sodium Potassium 3.4 L Chloride 109.7 H BUN Creatinine 0.4 L Glucose POC Glucose Total Bilirubin AST 59 H Alkaline Phosphatase 309 H Ammonia Total Creatine Kinase Total Protein Albumin 3.0 L Urine pH Allied health notes reviewed: RT (Trial of HFOT to keep O2 sats 90% with NIPPV prn and qhs)
--- NOTE | 2018-11-22 17:55 | Progress Note ---
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 As per staff, the patient was in her usual state of health at bedtime which was around 2030 hrs. Pt was found to be confused with decreased level of consciousness. EMS notified and upon arrival the patient was found to be in distress. Pt transported to [facility]. Pt seen and evaluated in ED and found to have Encephalopathy, and Acute Hypoxemic Respiratory Failure and was unable to protect her airway. Pt intubated and placed on vent support, admitted to ICU. She improved, extubated 11/11/18. ammonia improved, normalized on Lactulose. She is now awake,alert. She is however on high amount of Oxygen, on high flow nasal cannula. patient also has MRSA sputum and VRE Urine. 11/21/18 Now off high flow and on NC at 4lpm. Continue to wean off. * Patient has extensive Neurological history of including 2 cerebral aneurysm bleeds after which the patient developed dementia and seizures. * Patient was admitted with acute hypoxemic respiratory failure and encephalopathy. Patient was extubated on 11/21/2018, and has had notable improvement in mental status since then. * Per patient's son, she is now back to her baseline mental status. * Was evaluated during this admission by neurology recommendations continue current management. * Hypoxia has improved remarkably. There was no evidence of seizure little of this admission. Acute respiratory failure with hypoxia was intubated,now extubated 11/11 Now on Oxygen by high flow Oxygen continue to wean as tolerated Pulm following being evaluated by LTAC Hepatic encephalopathy with hyperammonia She was treated with lactulose back to baseline continue lactulose dose GI input was noted has now signed off Alcoholic cirrhosis of liver GI following MRSA sputum Contact isolation VRE Urine, likely colonization Alcohol use Hypertension Monitor BP COPD Seizure disorder seizure precautions Continue Keppra and Lamictal. 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 Full code status Pending placement History Interval history: Patient seen and examined remains intermittently confused but at baseline per son, delayed response to questions. Now off High flow and on NC at 4lpm Hospitalist Physical - Physical exam Narrative exam: Gen: Not in acute distress, lying in bed, confused/delirium HEENT: Normocephalic, atraumatic Neck: supple, no JVD Heart: S1 and S2 reg, no murmurs, rubs or gallop Lungs: Clear, no crackles, no wheeze Abd: soft, non tender, non distended, normal BS Ext: No edema, no clubbing, no cyanosis, Neuro: Awake,alert, oriented to person only, moves all ext - Constitutional Vitals: Temp Pulse Resp BP Pulse Ox 99.2 F 89 18 106/56 93 11/22/18 05:37 11/22/18 08:26 11/22/18 08:26 11/22/18 05:37 11/22/18 08:16 General appearance: Present: no acute distress Results - Labs CBC & Chem 7: 11/16/18 04:59 11/19/18 04:36 Labs: Laboratory Last Values WBC 4.8 K/mm3 (4.5-11.0) 11/16/18 04:59 RBC 4.08 M/mm3 (3.65-5.03) 11/16/18 04:59 Hgb 10.4 gm/dl (10.1-14.3) 11/16/18 04:59 Hct 33.4 % (30.3-42.9) 11/16/18 04:59 MCV 82 fl (79-97) 11/16/18 04:59 MCH 26 pg (28-32) L 11/16/18 04:59 MCHC 31 % (30-34) 11/16/18 04:59 RDW 23.4 % (13.2-15.2) H 11/16/18 04:59 Plt Count 235 K/mm3 (140-440) 11/16/18 04:59 Lymph % (Auto) 3.2 % (13.4-35.0) L 11/09/18 05:41 [place] % (Auto) 6.5 % (0.0-7.3) 11/09/18 05:41 Eos % (Auto) 0.3 % (0.0-4.3) 11/09/18 05:41 Baso % (Auto) 0.6 % (0.0-1.8) 11/09/18 05:41 Lymph # 0.3 K/mm3 (1.2-5.4) L 11/09/18 05:41 [place] # 0.7 K/mm3 (0.0-0.8) 11/09/18 05:41 Eos # 0.0 K/mm3 (0.0-0.4) 11/09/18 05:41 Baso # 0.1 K/mm3 (0.0-0.1) 11/09/18 05:41 Add Manual Diff Complete 11/08/18 11:47 Total Counted 100 11/08/18 11:47 Seg Neutrophils % 89.4 % (40.0-70.0) H 11/09/18 05:41 Seg Neuts % (Manual) 65.0 % (40.0-70.0) 11/08/18 11:47 0 % 11/08/18 11:47 17.0 % (13.4-35.0) 11/08/18 11:47 Reactive Lymphs % (Man) 0 % 11/08/18 11:47 13.0 % (0.0-7.3) H 11/08/18 11:47 2.0 % (0.0-4.3) 11/08/18 11:47 3.0 % (0.0-1.8) H 11/08/18 11:47 0 % 11/08/18 11:47 0 % 11/08/18 11:47 0 % 11/08/18 11:47 0 % 11/08/18 11:47 Nucleated RBC % Not Reportable 11/08/18 11:47 Seg Neutrophils # 9.6 K/mm3 (1.8-7.7) H 11/09/18 05:41 Seg Neutrophils # Man 2.2 K/mm3 (1.8-7.7) 11/08/18 11:47 Band Neutrophils # 0.0 K/mm3 11/08/18 11:47 0.6 K/mm3 (1.2-5.4) L 11/08/18 11:47 Abs React Lymphs (Man) 0.0 K/mm3 11/08/18 11:47 0.4 K/mm3 (0.0-0.8) 11/08/18 11:47 0.1 K/mm3 (0.0-0.4) 11/08/18 11:47 0.1 K/mm3 (0.0-0.1) 11/08/18 11:47 0.0 K/mm3 11/08/18 11:47 0.0 K/mm3 11/08/18 11:47 0.0 K/mm3 11/08/18 11:47 Blast Cells # 0.0 K/mm3 11/08/18 11:47 WBC Morphology Not Reportable 11/08/18 11:47 Hypersegmented Neuts Not Reportable 11/08/18 11:47 Hyposegmented Neuts Not Reportable 11/08/18 11:47 Hypogranular Neuts Not Reportable 11/08/18 11:47 Not Reportable 11/08/18 11:47 Not Reportable 11/08/18 11:47 Not Reportable 11/08/18 11:47 Not Reportable 11/08/18 11:47 Not Reportable 11/08/18 11:47 Not Reportable 11/08/18 11:47 Consistent w auto 11/08/18 11:47 Not Reportable 11/08/18 11:47 Plt Clumps, EDTA Not Reportable 11/08/18 11:47 Not Reportable 11/08/18 11:47 Few 11/08/18 11:47 Not Reportable 11/08/18 11:47 Plt Morphology Comment Not Reportable 11/08/18 11:47 RBC Morphology Not Reportable 11/08/18 11:47 Dimorphic RBCs Not Reportable 11/08/18 11:47 Not Reportable 11/08/18 11:47 Not Reportable 11/08/18 11:47 1+ 11/08/18 11:47 Few 11/08/18 11:47 Not Reportable 11/08/18 11:47 Not Reportable 11/08/18 11:47 Not Reportable 11/08/18 11:47 Not Reportable 11/08/18 11:47 Not Reportable 11/08/18 11:47 Not Reportable 11/08/18 11:47 Rare 11/08/18 11:47 Not Reportable 11/08/18 11:47 Not Reportable 11/08/18 11:47 Not Reportable 11/08/18 11:47 Not Reportable 11/08/18 11:47 Not Reportable 11/08/18 11:47 Not Reportable 11/08/18 11:47 Not Reportable 11/08/18 11:47 Few 11/08/18 11:47 Acanthocytes (Spur) Not Reportable 11/08/18 11:47 Rouleaux Not Reportable 11/08/18 11:47 Not Reportable 11/08/18 11:47 Not Reportable 11/08/18 11:47 Not Reportable 11/08/18 11:47 Not Reportable 11/08/18 11:47 Hem Pathologist Commnt No 11/08/18 11:47 PT 16.2 Sec. (12.2-14.9) H 11/16/18 04:59 INR 1.34 (0.87-1.13) H 11/16/18 04:59 APTT 30.4 Sec. (24.2-36.6) 11/08/18 11:47 15.4 Sec. (15.1-19.6) 11/08/18 11:47 POC ABG pH 7.443 (7.35-7.45) 11/11/18 12:23 POC ABG pCO2 34.7 (35-45) L 11/11/18 12:23 POC ABG pO2 57 (80-105) L 11/11/18 12:23 POC ABG HCO3 23.8 (22-26 mml/L) 11/11/18 12:23 POC ABG Total CO2 25 (23-27mmol/L) 11/11/18 12:23 POC ABG O2 Sat 91 11/11/18 12:23 POC ABG Base Excess 0 ((-2) - (+3)mmol/L) 11/11/18 12:23 45 % 11/11/18 12:23 Sodium 143 mmol/L (137-145) 11/19/18 04:36 Potassium 3.4 mmol/L (3.6-5.0) L 11/19/18 04:36 Chloride 109.7 mmol/L (98-107) H 11/19/18 04:36 Carbon Dioxide 22 mmol/L (22-30) 11/19/18 04:36 15 mmol/L 11/19/18 04:36 BUN 7 mg/dL (7-17) 11/19/18 04:36 0.4 mg/dL (0.7-1.2) L 11/19/18 04:36 Estimated GFR > 60 ml/min 11/19/18 04:36 18 % 11/19/18 04:36 Glucose 95 mg/dL (65-100) 11/19/18 04:36 POC Glucose 127 (70-105) H 11/15/18 16:11 Lactic Acid 1.90 mmol/L (0.7-2.0) 11/09/18 13:15 Calcium 9.0 mg/dL (8.4-10.2) 11/19/18 04:36 Phosphorus 3.50 mg/dL (2.5-4.5) 11/14/18 08:51 Magnesium 1.70 mg/dL (1.7-2.3) 11/14/18 08:51 1.10 mg/dL (0.1-1.2) 11/19/18 04:36 AST 59 units/L (5-40) H 11/19/18 04:36 ALT 41 units/L (7-56) 11/19/18 04:36 309 units/L (35-129) H 11/19/18 04:36 44.0 umol/L (25-60) 11/15/18 08:21 27 units/L (30-135) L 11/08/18 11:47 CK-MB (CK-2) < 1.0 ng/mL (0.0-4.0) 11/08/18 11:47 CK-MB (CK-2) Rel Index 3.7 (0-4) 11/08/18 11:47 < 0.010 ng/mL (0.00-0.029) 11/08/18 11:47 0.60 mg/dL (0.00-1.30) 11/09/18 05:41 6.3 g/dL (6.3-8.2) 11/19/18 04:36 3.0 g/dL (3.9-5) L 11/19/18 04:36 0.9 % 11/19/18 04:36 TSH 2.370 mlU/mL (0.270-4.200) 11/08/18 11:47 Free T4 0.92 ng/dL (0.76-1.46) 11/08/18 11:47 Jihan (Yellow) 11/08/18 12:00 Cloudy (Clear) 11/08/18 12:00 8.0 (5.0-7.0) H 11/08/18 12:00 Ur Specific [place] 1.017 (1.003-1.030) 11/08/18 12:00 <15 mg/dl mg/dL (Negative) 11/08/18 12:00 Neg mg/dL (Negative) 11/08/18 12:00 Neg mg/dL (Negative) 11/08/18 12:00 Neg (Negative) 11/08/18 12:00 Neg (Negative) 11/08/18 12:00 Neg (Negative) 11/08/18 12:00 < 2.0 mg/dL (<2.0) 11/08/18 12:00 Ur Leukocyte Esterase Neg (Negative) 11/08/18 12:00 4.0 /HPF (0.0-6.0) 11/08/18 12:00 2.0 /HPF (0.0-6.0) 11/08/18 12:00 U Epithel Cells (Auto) 1.0 /HPF (0-13.0) 11/08/18 12:00 3+ /HPF (Negative) 11/08/18 12:00 Few /HPF 11/08/18 12:00 Vancomycin Trough 10.6 ug/mL (5.0-20.0) 11/15/18 05:28 Plasma/Serum Alcohol < 0.01 % (0-0.07) 11/08/18 11:47 Active Medications - Current Medications Current Medications: Generic Name Dose Route Start Last Admin Trade Name Freq PRN Reason Stop Dose Admin Albuterol 2.5 mg 11/16/18 13:46 Proventil IH Q6HRT PRN Dyspnea Lipase/Protease/Amylase 1 each 11/08/18 15:[address] 10,500 Unit FEEDTUBE PRN PRN For Clogged Feeding Tube Arformoterol Tartrate 15 mcg 11/16/18 20:00 11/22/18 08:16 Brovana Nebu IH 15 mcg Q12HRT HUONG Administration Budesonide 0.5 mg 11/16/18 20:00 11/22/18 08:16 Pulmicort IH 0.5 mg Q12HRT HUONG Administration Famotidine 20 mg 11/15/18 10:00 11/22/18 09:06 Pepcid PO 20 mg BID HUONG Administration Fluticasone Propionate 50 mcg 11/09/18 10:00 11/22/18 09:03 Flonase NS 50 mcg QDAY HUONG Administration Folic Acid 1 mg 11/09/18 10:00 11/22/18 09:06 Folvite PO 1 mg QDAY HUONG Administration Hydrophilic Ointment 1 applic 11/08/18 11:37 Vaseline Lip Therapy TP Q2HR PRN Dry Lips Lactulose 30 gm 11/08/18 20:00 11/22/18 14:48 Cephulac PO 30 gm TID HUONG Administration Lamotrigine 25 mg 11/08/18 22:00 11/22/18 09:04 Lamictal PO 25 mg BID HUONG Administration Levetiracetam 1,500 mg 11/08/18 22:00 11/22/18 09:04 Keppra PO 1,500 mg BID HUONG Administration Levothyroxine Sodium 75 mcg 11/09/18 06:00 11/22/18 06:51 Synthroid PO 75 mcg DAILY@0600 [facility] Administration Lorazepam 2 mg 11/08/18 14:18 11/20/18 21:54 Ativan IV 2 mg Q1HR PRN Administration CIWA-Ar 8-15 Multi-Ingred Cream/Lotion/Oil/Oint 1 applic 11/08/18 11:37 Artificial Tears Ophth Oint OU Q4HR PRN Dry Eye(s) Multivitamins 1 each 11/09/18 10:00 11/22/18 09:05 Theragran Tab PO 1 each DAILY HUONG Administration Ondansetron HCl 4 mg 11/11/18 13:20 Zofran IV Q8H PRN Nausea And Vomiting Propranolol HCl 40 mg 11/09/18 10:00 11/22/18 09:06 Inderal PO 40 mg QDAY HUONG Administration Rifaximin 550 mg 11/08/18 22:00 11/22/18 09:04 Xifaxan PO 550 mg BID HUONG Administration Simple Syrup 15 ml 11/08/18 15:47 Simple Syrup FEEDTUBE PRN PRN Hypoglycemia Simple Syrup 30 ml 11/08/18 15:47 Simple Syrup FEEDTUBE PRN PRN Hypoglycemia Sodium Bicarbonate 325 mg 11/08/18 15:47 Sodium Bicarbonate FEEDTUBE PRN PRN For Clogged Feeding Tube Sodium Chloride 5 ml 11/08/18 11:37 Nacl 0.9% 500 Ml IV DIRECT PRN [employer] Sodium Chloride 10 ml 11/08/18 22:00 11/22/18 09:02 Sodium Chloride Flush Syringe 10 Ml IV 10 ml BID HUONG Administration Sodium Chloride 10 ml 11/08/18 13:32 Sodium Chloride Flush Syringe 10 Ml IV PRN PRN LINE FLUSH Spironolactone 100 mg 11/09/18 10:00 11/22/18 09:04 Aldactone PO 100 mg QDAY HUONG Administration Thiamine HCl 100 mg 11/09/18 10:00 11/22/18 09:04 Vitamin B-1 PO 100 mg QDAY HUONG Administration Nutrition/Malnutrition Assess - Dietary Evaluation Nutrition/Malnutrition Findings: Nutrition Notes Start: 11/08/18 15:38 Freq: Status: Active Protocol: Document 11/22/18 14:52 RM (Rec: 11/22/18 14:56 RM [id number]) Nutrition Notes Initial or Follow up Reassessment Current Diagnosis COPD,Hypertension Other Pertinent Diagnosis Hx CVA,GERD, Dementia, ESLD Current Diet GI soft w/Ensure Enlive Labs/Tests Reviewed Pertinent Medications Reviewed Height 5 ft 8 in Weight 53.5 kg [place] Body Weight (kg) 63.63 BMI 17.9 Weight change and time frame Bedscale possibly not calibrated probably. [employer] Vice President asked nurse to weigh pt when possible Subjective/Other Information Pt confused and in restraints at time of visit. Per nurse pt declined breakfast and is unsure whether pt has been drinking Ensure Enlive. Burn Absent Trauma Absent #1 Nutrition Diagnosis Inadequate oral intake Diagnosis Progress(for reassessment Continues documentation) Is patient on ventilator? No Is Patient Ambulatory and/or Out of Bed No REE-([facility]-confined to bed) 1383.420 Kcal/Kg value to use for calculation 35 Approximate Energy Requirements Using 1873 kcal/Kg Calculation Used for Recommendations Kcal/kg Additional Notes Protein Needs: 64-86g (1.2-1. 6g/kg) Fluid Needs: 1 ml/kcal Nutrition Intervention Add Supplement/Snack (indicate name/kcal Ensure Enlive 1 daily /protein ) Provides kCal: 350 Provides Protein (gm) 20 Goal #1 Meet at least 75% of calorie and protein needs via PO and ONS intakes Anticipated Discharge Needs: Unable to determine at this time Follow-Up By: 11/24/18 Additional Comments Follow for PO and ONS intakes
[2018-11-23] MEDS: SYNTHROID PO SCH (06:38)
[2018-11-23] MEDS: CEPHULAC PO SCH ×2 (08:00→14:00)
[2018-11-23] MEDS: PULMICORT IH SCH ×2 (08:20→20:06)
[2018-11-23] MEDS: BROVANA NEBU IH SCH ×2 (08:20→20:06)
[2018-11-23] MEDS: INDERAL PO SCH (10:00)
[2018-11-23] MEDS: PEPCID PO SCH (10:00)
[2018-11-23] MEDS: VITAMIN B-1 PO SCH (10:00)
[2018-11-23] MEDS: ALDACTONE PO SCH (10:00)
[2018-11-23] MEDS: XIFAXAN PO SCH (10:00)
[2018-11-23] MEDS: FLONASE NS SCH (10:00)
[2018-11-23] MEDS: KEPPRA PO SCH (10:00)
[2018-11-23] MEDS: THERAGRAN Tab PO SCH (10:00)
[2018-11-23] MEDS: FOLVITE PO SCH (10:00)
[2018-11-23] MEDS: LaMICtal PO SCH (10:00)
[2018-11-23] MEDS: SODIUM CHLORIDE FLUSH SYRINGE 10 ML IV SCH (10:00)
--- NOTE | 2018-11-23 15:16 | Progress Note ---
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 EMS notified and upon arrival the patient was found to be in distress. Pt transported to [facility]. Pt seen and evaluated in ED and found to have Encephalopathy, and Acute Hypoxemic Respiratory Failure and was unable to protect her airway. Pt intubated and placed on vent support, admitted to ICU. She improved, extubated 11/11/18. ammonia improved, normalized on Lactulose. She is now awake,alert. She is however on high amount of Oxygen, on high flow nasal cannula. patient also has MRSA sputum and VRE Urine. 11/21/18 Now off high flow and on NC at 4lpm. Continue to wean off. Patient has extensive Neurological history of including 2 cerebral aneurysm bleeds after which the patient developed dementia and seizures. Patient was admitted with acute hypoxemic respiratory failure and encephalopathy. Patient was extubated on 11/21/2018, and has had notable improvement in mental status since then. Per patient's son, she is now back to her baseline mental status. Was evaluated during this admission by neurology recommendations continue current management. Hypoxia has improved remarkably. There was no evidence of seizure little of this admission. Acute respiratory failure with hypoxia was intubated, now extubated 11/11 Now on Oxygen by high flow Oxygen continue to wean as tolerated Pulm following being evaluated by LTAC Hepatic encephalopathy with hyperammonia She was treated with lactulose back to baseline continue lactulose dose GI input was noted has now signed off Alcoholic cirrhosis of liver GI following MRSA sputum Contact isolation VRE Urine, likely colonization Alcohol use Hypertension Monitor BP COPD Seizure disorder seizure precautions Continue Keppra and Lamictal. 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 Follow-up on current diagnosis of respiratory failure. No overnight events reported to me. Patient denies any chest pain, shortness breath, nausea/vomiting or severe headaches. Imaging, nursing note, chart, labs and old chart reviewed. Discussed with patient. Hospitalist Physical - Physical exam Narrative exam: Gen: chronic ill appearing on high flow O2, Awake, Alert, Orientated x 1 HEENT: NCAT, EOMI, PERRL, OP Clear Neck: supple, no adenopathy, no thyromegaly, no JVD CVS/Heart: RRR, normal S1S2, pulses present bilaterally Chest/Lungs: diminished bs bilaterally, Symmetrical chest expansion, good air entry bilaterally GI/Abdomen: soft, NTND, good bowel sounds, no guarding or rebound /Bladder: no suprapubic tenderness, no CVA or paraspinal tenderness Extermity/Skin: no c/c/e, no obvious rash MSK: FROM x 4 Neuro: CN 2-12 grossly intact, no new focal deficits Psych: calm - Constitutional Vitals: Temp Pulse Resp BP Pulse Ox 97.3 F L 85 16 105/60 87 11/23/18 11:43 11/23/18 11:43 11/23/18 11:43 11/23/18 11:43 11/23/18 11:43 General appearance: Present: no acute distress Results - Labs CBC & Chem 7: 11/16/18 04:59 11/19/18 04:36 Labs: Laboratory Last Values WBC 4.8 K/mm3 (4.5-11.0) 11/16/18 04:59 RBC 4.08 M/mm3 (3.65-5.03) 11/16/18 04:59 Hgb 10.4 gm/dl (10.1-14.3) 11/16/18 04:59 Hct 33.4 % (30.3-42.9) 11/16/18 04:59 MCV 82 fl (79-97) 11/16/18 04:59 MCH 26 pg (28-32) L 11/16/18 04:59 MCHC 31 % (30-34) 11/16/18 04:59 RDW 23.4 % (13.2-15.2) H 11/16/18 04:59 Plt Count 235 K/mm3 (140-440) 11/16/18 04:59 Lymph % (Auto) 3.2 % (13.4-35.0) L 11/09/18 05:41 [place] % (Auto) 6.5 % (0.0-7.3) 11/09/18 05:41 Eos % (Auto) 0.3 % (0.0-4.3) 11/09/18 05:41 Baso % (Auto) 0.6 % (0.0-1.8) 11/09/18 05:41 Lymph # 0.3 K/mm3 (1.2-5.4) L 11/09/18 05:41 [place] # 0.7 K/mm3 (0.0-0.8) 11/09/18 05:41 Eos # 0.0 K/mm3 (0.0-0.4) 11/09/18 05:41 Baso # 0.1 K/mm3 (0.0-0.1) 11/09/18 05:41 Add Manual Diff Complete 11/08/18 11:47 Total Counted 100 11/08/18 11:47 Seg Neutrophils % 89.4 % (40.0-70.0) H 11/09/18 05:41 Seg Neuts % (Manual) 65.0 % (40.0-70.0) 11/08/18 11:47 0 % 11/08/18 11:47 17.0 % (13.4-35.0) 11/08/18 11:47 Reactive Lymphs % (Man) 0 % 11/08/18 11:47 13.0 % (0.0-7.3) H 11/08/18 11:47 2.0 % (0.0-4.3) 11/08/18 11:47 3.0 % (0.0-1.8) H 11/08/18 11:47 0 % 11/08/18 11:47 0 % 11/08/18 11:47 0 % 11/08/18 11:47 0 % 11/08/18 11:47 Nucleated RBC % Not Reportable 11/08/18 11:47 Seg Neutrophils # 9.6 K/mm3 (1.8-7.7) H 11/09/18 05:41 Seg Neutrophils # Man 2.2 K/mm3 (1.8-7.7) 11/08/18 11:47 Band Neutrophils # 0.0 K/mm3 11/08/18 11:47 0.6 K/mm3 (1.2-5.4) L 11/08/18 11:47 Abs React Lymphs (Man) 0.0 K/mm3 11/08/18 11:47 0.4 K/mm3 (0.0-0.8) 11/08/18 11:47 0.1 K/mm3 (0.0-0.4) 11/08/18 11:47 0.1 K/mm3 (0.0-0.1) 11/08/18 11:47 0.0 K/mm3 11/08/18 11:47 0.0 K/mm3 11/08/18 11:47 0.0 K/mm3 11/08/18 11:47 Blast Cells # 0.0 K/mm3 11/08/18 11:47 WBC Morphology Not Reportable 11/08/18 11:47 Hypersegmented Neuts Not Reportable 11/08/18 11:47 Hyposegmented Neuts Not Reportable 11/08/18 11:47 Hypogranular Neuts Not Reportable 11/08/18 11:47 Not Reportable 11/08/18 11:47 Not Reportable 11/08/18 11:47 Not Reportable 11/08/18 11:47 Not Reportable 11/08/18 11:47 Not Reportable 11/08/18 11:47 Not Reportable 11/08/18 11:47 Consistent w auto 11/08/18 11:47 Not Reportable 11/08/18 11:47 Plt Clumps, EDTA Not Reportable 11/08/18 11:47 Not Reportable 11/08/18 11:47 Few 11/08/18 11:47 Not Reportable 11/08/18 11:47 Plt Morphology Comment Not Reportable 11/08/18 11:47 RBC Morphology Not Reportable 11/08/18 11:47 Dimorphic RBCs Not Reportable 11/08/18 11:47 Not Reportable 11/08/18 11:47 Not Reportable 11/08/18 11:47 1+ 11/08/18 11:47 Few 11/08/18 11:47 Not Reportable 11/08/18 11:47 Not Reportable 11/08/18 11:47 Not Reportable 11/08/18 11:47 Not Reportable 11/08/18 11:47 Not Reportable 11/08/18 11:47 Not Reportable 11/08/18 11:47 Rare 11/08/18 11:47 Not Reportable 11/08/18 11:47 Not Reportable 11/08/18 11:47 Not Reportable 11/08/18 11:47 Not Reportable 11/08/18 11:47 Not Reportable 11/08/18 11:47 Not Reportable 11/08/18 11:47 Not Reportable 11/08/18 11:47 Few 11/08/18 11:47 Acanthocytes (Spur) Not Reportable 11/08/18 11:47 Rouleaux Not Reportable 11/08/18 11:47 Not Reportable 11/08/18 11:47 Not Reportable 11/08/18 11:47 Not Reportable 11/08/18 11:47 Not Reportable 11/08/18 11:47 Hem Pathologist Commnt No 11/08/18 11:47 PT 16.2 Sec. (12.2-14.9) H 11/16/18 04:59 INR 1.34 (0.87-1.13) H 11/16/18 04:59 APTT 30.4 Sec. (24.2-36.6) 11/08/18 11:47 15.4 Sec. (15.1-19.6) 11/08/18 11:47 POC ABG pH 7.443 (7.35-7.45) 11/11/18 12:23 POC ABG pCO2 34.7 (35-45) L 11/11/18 12:23 POC ABG pO2 57 (80-105) L 11/11/18 12:23 POC ABG HCO3 23.8 (22-26 mml/L) 11/11/18 12:23 POC ABG Total CO2 25 (23-27mmol/L) 11/11/18 12:23 POC ABG O2 Sat 91 11/11/18 12:23 POC ABG Base Excess 0 ((-2) - (+3)mmol/L) 11/11/18 12:23 45 % 11/11/18 12:23 Sodium 143 mmol/L (137-145) 11/19/18 04:36 Potassium 3.4 mmol/L (3.6-5.0) L 11/19/18 04:36 Chloride 109.7 mmol/L (98-107) H 11/19/18 04:36 Carbon Dioxide 22 mmol/L (22-30) 11/19/18 04:36 15 mmol/L 11/19/18 04:36 BUN 7 mg/dL (7-17) 11/19/18 04:36 0.4 mg/dL (0.7-1.2) L 11/19/18 04:36 Estimated GFR > 60 ml/min 11/19/18 04:36 18 % 11/19/18 04:36 Glucose 95 mg/dL (65-100) 11/19/18 04:36 POC Glucose 127 (70-105) H 11/15/18 16:11 Lactic Acid 1.90 mmol/L (0.7-2.0) 11/09/18 13:15 Calcium 9.0 mg/dL (8.4-10.2) 11/19/18 04:36 Phosphorus 3.50 mg/dL (2.5-4.5) 11/14/18 08:51 Magnesium 1.70 mg/dL (1.7-2.3) 11/14/18 08:51 1.10 mg/dL (0.1-1.2) 11/19/18 04:36 AST 59 units/L (5-40) H 11/19/18 04:36 ALT 41 units/L (7-56) 11/19/18 04:36 309 units/L (35-129) H 11/19/18 04:36 44.0 umol/L (25-60) 11/15/18 08:21 27 units/L (30-135) L 11/08/18 11:47 CK-MB (CK-2) < 1.0 ng/mL (0.0-4.0) 11/08/18 11:47 CK-MB (CK-2) Rel Index 3.7 (0-4) 11/08/18 11:47 < 0.010 ng/mL (0.00-0.029) 11/08/18 11:47 0.60 mg/dL (0.00-1.30) 11/09/18 05:41 6.3 g/dL (6.3-8.2) 11/19/18 04:36 3.0 g/dL (3.9-5) L 11/19/18 04:36 0.9 % 11/19/18 04:36 TSH 2.370 mlU/mL (0.270-4.200) 11/08/18 11:47 Free T4 0.92 ng/dL (0.76-1.46) 11/08/18 11:47 Jihan (Yellow) 11/08/18 12:00 Cloudy (Clear) 11/08/18 12:00 8.0 (5.0-7.0) H 11/08/18 12:00 Ur Specific [place] 1.017 (1.003-1.030) 11/08/18 12:00 <15 mg/dl mg/dL (Negative) 11/08/18 12:00 Neg mg/dL (Negative) 11/08/18 12:00 Neg mg/dL (Negative) 11/08/18 12:00 Neg (Negative) 11/08/18 12:00 Neg (Negative) 11/08/18 12:00 Neg (Negative) 11/08/18 12:00 < 2.0 mg/dL (<2.0) 11/08/18 12:00 Ur Leukocyte Esterase Neg (Negative) 11/08/18 12:00 4.0 /HPF (0.0-6.0) 11/08/18 12:00 2.0 /HPF (0.0-6.0) 11/08/18 12:00 U Epithel Cells (Auto) 1.0 /HPF (0-13.0) 11/08/18 12:00 3+ /HPF (Negative) 11/08/18 12:00 Few /HPF 11/08/18 12:00 Vancomycin Trough 10.6 ug/mL (5.0-20.0) 11/15/18 05:28 Plasma/Serum Alcohol < 0.01 % (0-0.07) 11/08/18 11:47 Active Medications - Current Medications Current Medications: Generic Name Dose Route Start Last Admin Trade Name Freq PRN Reason Stop Dose Admin Albuterol 2.5 mg 11/16/18 13:46 Proventil IH Q6HRT PRN Dyspnea Lipase/Protease/Amylase 1 each 11/08/18 15:47 Pancreazabi Mix 10,500 Unit FEEDTUBE PRN PRN For Clogged Feeding Tube Arformoterol Tartrate 15 mcg 11/16/18 20:00 11/23/18 08:20 Brovana Nebu IH 15 mcg Q12HRT HUONG Administration Budesonide 0.5 mg 11/16/18 20:00 07/16/19 08:20 Pulmicort IH 0.5 mg Q12HRT HUONG Administration Famotidine 20 mg 11/15/18 10:00 11/23/18 10:00 Pepcid PO 20 mg BID HUONG Administration Fluticasone Propionate 50 mcg 11/09/18 10:00 11/23/18 10:00 Flonase NS 50 mcg QDAY HUONG Administration Folic Acid 1 mg 11/09/18 10:00 11/23/18 10:00 Folvite PO 1 mg QDAY HUONG Administration Hydrophilic Ointment 1 applic 11/08/18 11:37 Vaseline Lip Therapy TP Q2HR PRN Dry Lips Lactulose 30 gm 11/08/18 20:00 11/23/18 08:00 Cephulac PO 30 gm TID HUONG Administration Lamotrigine 25 mg 11/08/18 22:00 11/23/18 10:00 Lamictal PO 25 mg BID HUONG Administration Levetiracetam 1,500 mg 11/08/18 22:00 11/23/18 10:00 Keppra PO 1,500 mg BID HUONG Administration Levothyroxine Sodium 75 mcg 11/09/18 06:00 11/23/18 06:38 Synthroid PO 75 mcg DAILY@0600 [facility] Administration Lorazepam 2 mg 11/08/18 14:18 11/20/18 21:54 Ativan IV 2 mg Q1HR PRN Administration CIWA-Ar 8-15 Multi-Ingred Cream/Lotion/Oil/Oint 1 applic 11/08/18 11:37 Artificial Tears Ophth Oint OU Q4HR PRN Dry Eye(s) Multivitamins 1 each 11/09/18 10:00 11/23/18 10:00 Theragran Tab PO 1 each DAILY HUONG Administration Ondansetron HCl 4 mg 11/11/18 13:20 Zofran IV Q8H PRN Nausea And Vomiting Propranolol HCl 40 mg 11/09/18 10:00 11/23/18 10:00 Inderal PO 40 mg QDAY HUONG Administration Rifaximin 550 mg 11/08/18 22:00 11/23/18 10:00 Xifaxan PO 550 mg BID HUONG Administration Simple Syrup 15 ml 11/08/18 15:47 Simple Syrup FEEDTUBE PRN PRN Hypoglycemia Simple Syrup 30 ml 11/08/18 15:47 Simple Syrup FEEDTUBE PRN PRN Hypoglycemia Sodium Bicarbonate 325 mg 11/08/18 15:47 Sodium Bicarbonate FEEDTUBE PRN PRN For Clogged Feeding Tube Sodium Chloride 5 ml 11/08/18 11:37 Nacl 0.9% 500 Ml IV DIRECT PRN ARTERIAL DIE CA[employer] DIE [employer]KER Sodium Chloride 10 ml 11/08/18 22:00 11/23/18 10:00 Sodium Chloride Flush Syringe 10 Ml IV 10 ml BID HUONG Administration Sodium Chloride 10 ml 11/08/18 13:32 Sodium Chloride Flush Syringe 10 Ml IV PRN PRN LINE FLUSH Spironolactone 100 mg 11/09/18 10:00 11/23/18 10:00 Aldactone PO 100 mg QDAY HUONG Administration Thiamine HCl 100 mg 11/09/18 10:00 11/23/18 10:00 Vitamin B-1 PO 100 mg QDAY HUONG Administration Nutrition/Malnutrition Assess - Dietary Evaluation Nutrition/Malnutrition Findings: Nutrition Notes Start: 11/08/18 15:38 Freq: Status: Active Protocol: Document 11/22/18 14:52 RM (Rec: 11/22/18 14:56 RM [id number]) Nutrition Notes Initial or Follow up Reassessment Current Diagnosis COPD,Hypertension Other Pertinent Diagnosis Hx CVA,GERD, Dementia, ESLD Current Diet GI soft w/Ensure Enlive Labs/Tests Reviewed Pertinent Medications Reviewed Height 5 ft 8 in Weight 53.5 kg [place] Body Weight (kg) 63.63 BMI 17.9 Weight change and time frame Bedscale possibly not calibrated probably. Judicial Administrative Assistant asked nurse to weigh pt when possible Subjective/Other Information Pt confused and in restraints at time of visit. Per nurse pt declined breakfast and is unsure whether pt has been drinking Ensure Enlive. Burn Absent Trauma Absent #1 Nutrition Diagnosis Inadequate oral intake Diagnosis Progress(for reassessment Continues documentation) Is patient on ventilator? No Is Patient Ambulatory and/or Out of Bed No REE-([facility]-confined to bed) 1383.420 Kcal/Kg value to use for calculation 35 Approximate Energy Requirements Using 1873 kcal/Kg Calculation Used for Recommendations Kcal/kg Additional Notes Protein Needs: 64-86g (1.2-1. 6g/kg) Fluid Needs: 1 ml/kcal Nutrition Intervention Add Supplement/Snack (indicate name/kcal Ensure Enlive 1 daily /protein ) Provides kCal: 350 Provides Protein (gm) 20 Goal #1 Meet at least 75% of calorie and protein needs via PO and ONS intakes Anticipated Discharge Needs: Unable to determine at this time Follow-Up By: 11/24/18 Additional Comments Follow for PO and ONS intakes
--- NOTE | 2018-11-23 15:46 | Discharge Summary ---
Providers - Providers Date of Admission: 11/08/18 13:32 Date of discharge: 11/23/18 Attending physician: GLENIS AYON 11/08/18 Consult to Physician [CONS] Stat Comment: Consulting Provider: REJI TENORIO Physician Instructions: Reason For Exam: suspected stroke 11/08/18 11:37 Consult to Dietitian/Nutrition [CONS] Routine Physician Instructions: Reason For Exam: Reason for Consult: Evaluate nutritional intake 11/08/18 11:59 Consult to Physician [CONS] Urgent Comment: Consulting Provider: JONATAN PEDRAZA Physician Instructions: Reason For Exam: ams resp failure 11/08/18 14:45 Consult to Dietitian/Nutrition [CONS] Routine Physician Instructions: Reason For Exam: Reason for Consult: Write/Manage Tube Feeding 11/09/18 07:24 Consult to Physician [CONS] Routine Comment: Consulting Provider: AR ELIZABETH Physician Instructions: Reason For Exam: Cirrhosis,hyperammonia 11/10/18 11:14 Consult to Physician [CONS] Routine Comment: Consulting Provider: BRAVO JULIEN Physician Instructions: Reason For Exam: pneumonia & UTI 11/12/18 12:35 Occupational Therapy Evaluate and Treat [CONS] Routine Comment: Reason For Exam: for rehab 11/12/18 12:36 Speech Therapy Evaluation and Treat [CONS] Routine Reason For Exam: to evaluate for swallow 11/18/18 11:29 Consult to Physician [CONS] Routine Comment: Consulting Provider: JCARLOS BURKS Physician Instructions: Reason For Exam: encephalopathy 11/23/18 11:37 Physical Therapy Evaluation and Treat [CONS] Routine Comment: Reason For Exam: generalized weakness Primary care physician: DIGITAL ASSOCIATE MEDIA DIRECTOR Hospitalization Condition: Stable Hospital course: Patient is a 62 yo woman from a Personal Correction with a history of 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 EMS notified and upon arrival the patient was found to be in respiratory distress. Patient was transported to [facility] ED and was found to have Encephalopathy, and Acute Hypoxemic Respiratory Failure was unable to protect her airway. Pt was intubated, placed on mechanical ventilation and admitted to ICU. She improved, extubated 11/11/18. Ammonia improved, normalized on Lactulose. She is now awake,alert. She is however on high amount of Oxygen, on high flow nasal cannula. patient also has MRSA sputum and VRE Urine. 11/21/18 Now off high flow and on NC at 4lpm. Continue to wean off. Patient has extensive Neurological history of including 2 cerebral aneurysm bleeds after which the patient developed dementia and seizures. Patient was admitted with acute hypoxemic respiratory failure and encephalopathy. Patient was extubated on 11/21/2018, and has had notable improvement in mental status since then. Per patient's son, she is now back to her baseline mental status. Was evaluated during this admission by neurology recommendations continue current management. Hypoxia has improved remarkably. There was no evidence of seizure little of this admission. Acute respiratory failure with hypoxia was intubated, now extubated 11/11/2018 Now on Oxygen by high flow Oxygen continue to wean as tolerated Pulm following being evaluated by LTAC Hepatic encephalopathy with hyperammonia She was treated with lactulose back to baseline continue lactulose dose GI input was noted has now signed off Alcoholic cirrhosis of liver GI following MRSA sputum Contact isolation VRE Urine, likely colonization Alcohol use Hypertension Monitor BP COPD Seizure disorder seizure precautions Continue Keppra and Lamictal. 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 Severe Malnutrition, poa Full code status d/c to [facility] at [facility] Disposition: [id number] MEDICARE CERT LT Core Measure Documentation - Palliative Care Palliative Care/ Comfort Measures: Not Applicable - Core Measures Any of the following diagnoses?: none - VTE Discharge Requirements Deep Vein Thrombosis/Pulmonary Embolism Present on Admission: No Has pt received <5 days of overlap therapy or INR<2.0: No Anticoagulant overlap therapy prescribed at discharge: No Contraindication No Overlap Therapy order at DC: Not Indicated Exam - Physical Exam Narrative exam: Gen: chronic ill appearing on high flow O2, Awake, Alert, Orientated x 1 HEENT: NCAT, EOMI, PERRL, OP Clear Neck: supple, no adenopathy, no thyromegaly, no JVD CVS/Heart: RRR, normal S1S2, pulses present bilaterally Chest/Lungs: diminished bs bilaterally, Symmetrical chest expansion, good air entry bilaterally GI/Abdomen: soft, NTND, good bowel sounds, no guarding or rebound /Bladder: no suprapubic tenderness, no CVA or paraspinal tenderness Extermity/Skin: no c/c/e, no obvious rash MSK: FROM x 4 Neuro: CN 2-12 grossly intact, no new focal deficits Psych: calm - Constitutional Vitals: Temp Pulse Resp BP Pulse Ox 97.3 F L 85 16 105/60 87 11/23/18 11:43 11/23/18 11:43 11/23/18 11:43 11/23/18 11:43 11/23/18 11:43 Plan Activity: up only with assistance, fall precautions, other (no strenous activity) Diet: other (GI soft) Special Instructions: record daily weights, record daily BP diary Additional Instructions: Hold Lactulose if patient has diarrhea. Monitor Ammonia levels closely Follow up with: PRIMARY CARE, [Primary Care Provider] - 3-5 Days AR ELIZABETH MD [Staff Physician] - 7 Days JONATAN PEDRAZA MD [Staff Physician] - 7 Days BRAVO JULIEN MD [Staff Physician] - 7 Days
--- NOTE | 2018-11-23 16:42 | Progress Note ---
Assessment and Plan Patient resting on Vapotherm FIO2 50%. O2 saturation running 97%. No acute respiratory distress.Patient is afebrile . No leukocytosis. Blood pressure 105/60. - Patient Problems (1) COPD (chronic obstructive pulmonary disease) Current Visit: Yes Status: Acute Qualifiers: Chronic bronchitis type: mixed simple and mucopurulent Plan to address problem: O2 supplementation, vapotherm FIO2 50% Albuterol/atrovent aerosol treatments q 6 hours prn for shortness of breath. Brovanna/Budesonide aerosol treatments q 12 hours. Continue Famotidine. SCDs. (2) CAD (coronary artery disease) Current Visit: Yes Status: Acute Qualifiers: Associated angina: without angina Plan to address problem: Management as per cardiology. (3) EtOH dependence Current Visit: Yes Status: Acute Qualifiers: Complication of substance-induced condition: with unspecified complication Plan to address problem: Management as per primary care. (4) Altered mental status Current Visit: Yes Status: Acute Plan to address problem: Management as per primary care and neurology. (5) Hepatic encephalopathy syndrome Current Visit: Yes Status: Acute Plan to address problem: Management as per primary care and gastroenterology. (6) Hypothyroid Current Visit: Yes Status: Acute Qualifiers: Hypothyroidism type: unspecified Qualified Code(s): E03.9 - Hypothyroidism, unspecified Plan to address problem: Patient is on Levothyroxine. Management as per primary care. (7) Respiratory failure Current Visit: Yes Status: Acute Qualifiers: Plan to address problem: O2 supplementation, vapotherm FIO2 50% Albuterol/atrovent aerosol treatments q 6 hours Prn for shortness of breath. Brovanna/Budesonide aerosol treatments q 12 hours. Continue Famotidine. SCDs. Subjective Date of service: 11/23/18 Principal diagnosis: Hepatic encephalopathy Interval history: Patient resting on Vapotherm FIO2 50%. O2 saturation running 97%. No acute respiratory distress.Patient is afebrile . No leukocytosis. Blood pressure 105/60. Objective Vital Signs - 12hr 11/23/18 11/23/18 11/23/18 06:01 06:15 08:20 Temperature 98.6 F Pulse Rate 77 83 Pulse Rate [ 90 Anterior Bilateral Throughout] Respiratory 20 18 Rate Respiratory 18 Rate [Anterior Bilateral Throughout] Blood Pressure 103/62 O2 Sat by Pulse 86 98 Oximetry 11/23/18 11/23/18 11/23/18 08:39 08:41 11:43 Temperature 97.3 F L Pulse Rate 85 Pulse Rate [ 80 Anterior Bilateral Throughout] Respiratory 16 Rate Respiratory 18 Rate [Anterior Bilateral Throughout] Blood Pressure 105/60 O2 Sat by Pulse 97 87 Oximetry Constitutional: no acute distress, asleep, other (elderly and chronically ill looking CF, normocephalic with mildly increase resp effort on NIPPV) Eyes: non-icteric ENT: other (on BIPAP) Neck: supple, no lymphadenopathy, no JVD, other (no thyromegaly) Effort: mildly labored Ascultation: Bilateral: rales, rhonchi Percussion: Bilateral: not dull Cardiovascular: regular rate and rhythm, other (S1,S2, no murmurs, no gallops or rubs) Gastrointestinal: normoactive bowel sounds, soft, non-tender, non-distended Integumentary: rash, other (spider naevi) Extremities: no cyanosis, no edema, pulses normal, no ischemia or petechiae Neurologic: normal mental status, non-focal exam (grossly), pupils equal and round, motor strength normal and Psychiatric: mood appropriate, affect normal CBC and BMP: 11/16/18 04:59 11/19/18 04:36 ABG, PT/INR, D-dimer: ABG POC ABG pH 7.443 (7.35-7.45) 11/11/18 12:23 POC ABG pCO2 34.7 (35-45) L 11/11/18 12:23 POC ABG pO2 57 (80-105) L 11/11/18 12:23 POC ABG HCO3 23.8 (22-26 mml/L) 11/11/18 12:23 POC ABG Total CO2 25 (23-27mmol/L) 11/11/18 12:23 POC ABG O2 Sat 91 11/11/18 12:23 PT/INR, D-dimer PT 16.2 Sec. (12.2-14.9) H 11/16/18 04:59 INR 1.34 (0.87-1.13) H 11/16/18 04:59 Abnormal lab findings: Abnormal Labs 11/08/18 11/08/18 11/08/18 11:47 11:47 11:47 WBC 3.4 L Hgb MCH 26 L RDW 21.6 H Lymph % (Auto) Lymph # Seg Neutrophils % Monocytes % (Manual) 13.0 H Basophils % (Manual) 3.0 H Seg Neutrophils # Lymphocytes # (Manual) 0.6 L PT 17.3 H INR 1.45 H POC ABG pH POC ABG pCO2 POC ABG pO2 Sodium Potassium Chloride BUN Creatinine 0.6 L Glucose 130 H POC Glucose Total Bilirubin 1.50 H AST Alkaline Phosphatase 140 H Ammonia Total Creatine Kinase 27 L Total Protein 6.0 L Albumin 3.0 L Urine pH 11/08/18 11/08/18 11/08/18 11:47 12:00 14:01 WBC Hgb MCH RDW Lymph % (Auto) Lymph # Seg Neutrophils % Monocytes % (Manual) Basophils % (Manual) Seg Neutrophils # Lymphocytes # (Manual) PT INR POC ABG pH 7.452 H POC ABG pCO2 32.8 L POC ABG pO2 127 H Sodium Potassium Chloride BUN Creatinine Glucose POC Glucose Total Bilirubin AST Alkaline Phosphatase Ammonia 123.0 H Total Creatine Kinase Total Protein Albumin Urine pH 8.0 H 11/08/18 11/08/18 11/09/18 14:34 15:13 04:31 WBC Hgb MCH RDW Lymph % (Auto) Lymph # Seg Neutrophils % Monocytes % (Manual) Basophils % (Manual) Seg Neutrophils # Lymphocytes # (Manual) PT INR POC ABG pH 7.468 H POC ABG pCO2 POC ABG pO2 76 L 73 L Sodium Potassium Chloride BUN Creatinine Glucose POC Glucose 112 H Total Bilirubin AST Alkaline Phosphatase Ammonia Total Creatine Kinase Total Protein Albumin Urine pH 11/09/18 11/09/18 11/09/18 05:41 05:41 05:41 WBC Hgb MCH 26 L RDW 21.5 H Lymph % (Auto) 3.2 L Lymph # 0.3 L Seg Neutrophils % 89.4 H Monocytes % (Manual) Basophils % (Manual) Seg Neutrophils # 9.6 H Lymphocytes # (Manual) PT INR POC ABG pH POC ABG pCO2 POC ABG pO2 Sodium Potassium Chloride BUN 6 L Creatinine 0.4 L Glucose POC Glucose Total Bilirubin 1.80 H AST Alkaline Phosphatase 153 H Ammonia 75.0 H Total Creatine Kinase Total Protein Albumin 3.2 L Urine pH 11/09/18 11/10/18 11/10/18 11:44 00:11 04:14 WBC Hgb MCH RDW Lymph % (Auto) Lymph # Seg Neutrophils % Monocytes % (Manual) Basophils % (Manual) Seg Neutrophils # Lymphocytes # (Manual) PT INR POC ABG pH POC ABG pCO2 POC ABG pO2 74 L Sodium Potassium Chloride BUN Creatinine Glucose POC Glucose 114 H 134 H Total Bilirubin AST Alkaline Phosphatase Ammonia Total Creatine Kinase Total Protein Albumin Urine pH 11/10/18 11/10/18 11/10/18 08:19 08:19 08:19 WBC 14.8 H Hgb MCH 26 L RDW 21.9 H Lymph % (Auto) Lymph # Seg Neutrophils % Monocytes % (Manual) Basophils % (Manual) Seg Neutrophils # Lymphocytes # (Manual) PT INR POC ABG pH POC ABG pCO2 POC ABG pO2 Sodium Potassium Chloride BUN Creatinine 0.5 L Glucose 117 H POC Glucose Total Bilirubin 1.30 H AST Alkaline Phosphatase 155 H Ammonia 62.0 H Total Creatine Kinase Total Protein 6.0 L Albumin 2.8 L Urine pH 11/11/18 11/11/18 11/11/18 00:02 04:16 04:46 WBC 12.2 H Hgb MCH 26 L RDW 22.4 H Lymph % (Auto) Lymph # Seg Neutrophils % Monocytes % (Manual) Basophils % (Manual) Seg Neutrophils # Lymphocytes # (Manual) PT INR POC ABG pH POC ABG pCO2 POC ABG pO2 58 L Sodium Potassium Chloride BUN Creatinine Glucose POC Glucose 112 H Total Bilirubin AST Alkaline Phosphatase Ammonia Total Creatine Kinase Total Protein Albumin Urine pH 11/11/18 11/11/18 11/11/18 04:46 04:46 05:50 WBC Hgb MCH RDW Lymph % (Auto) Lymph # Seg Neutrophils % Monocytes % (Manual) Basophils % (Manual) Seg Neutrophils # Lymphocytes # (Manual) PT 18.3 H INR 1.56 H POC ABG pH POC ABG pCO2 POC ABG pO2 Sodium Potassium Chloride BUN Creatinine 0.4 L Glucose 119 H POC Glucose 133 H Total Bilirubin AST Alkaline Phosphatase 152 H Ammonia Total Creatine Kinase Total Protein 6.1 L Albumin 2.8 L Urine pH 11/11/18 11/11/18 11/12/18 11:38 12:23 04:23 WBC Hgb 9.8 L MCH 26 L RDW 22.8 H Lymph % (Auto) Lymph # Seg Neutrophils % Monocytes % (Manual) Basophils % (Manual) Seg Neutrophils # Lymphocytes # (Manual) PT INR POC ABG pH POC ABG pCO2 34.7 L POC ABG pO2 57 L Sodium Potassium Chloride BUN Creatinine Glucose POC Glucose 123 H Total Bilirubin AST Alkaline Phosphatase Ammonia Total Creatine Kinase Total Protein Albumin Urine pH 11/12/18 11/12/18 11/13/18 04:23 11:24 04:03 WBC 4.1 L Hgb MCH 26 L RDW 22.7 H Lymph % (Auto) Lymph # Seg Neutrophils % Monocytes % (Manual) Basophils % (Manual) Seg Neutrophils # Lymphocytes # (Manual) PT INR POC ABG pH POC ABG pCO2 POC ABG pO2 Sodium Potassium Chloride 107.4 H BUN Creatinine 0.5 L Glucose 124 H POC Glucose 142 H Total Bilirubin AST Alkaline Phosphatase 163 H Ammonia Total Creatine Kinase Total Protein 5.9 L Albumin 2.8 L Urine pH 11/13/18 11/14/18 11/14/18 04:03 03:56 03:56 WBC Hgb 10.0 L MCH 26 L RDW 23.4 H Lymph % (Auto) Lymph # Seg Neutrophils % Monocytes % (Manual) Basophils % (Manual) Seg Neutrophils # Lymphocytes # (Manual) PT INR POC ABG pH POC ABG pCO2 POC ABG pO2 Sodium Potassium 3.2 L 3.5 L Chloride 109.1 H 107.9 H BUN Creatinine 0.4 L 0.3 L Glucose 109 H 118 H POC Glucose Total Bilirubin AST 59 H 57 H Alkaline Phosphatase 213 H 239 H Ammonia Total Creatine Kinase Total Protein 5.9 L 5.4 L Albumin 2.7 L 2.8 L Urine pH 11/15/18 11/15/18 11/15/18 05:28 05:28 11:34 WBC Hgb 9.8 L MCH 26 L RDW 23.3 H Lymph % (Auto) Lymph # Seg Neutrophils % Monocytes % (Manual) Basophils % (Manual) Seg Neutrophils # Lymphocytes # (Manual) PT INR POC ABG pH POC ABG pCO2 POC ABG pO2 Sodium Potassium Chloride 111.3 H BUN Creatinine 0.3 L Glucose 110 H POC Glucose 122 H Total Bilirubin AST Alkaline Phosphatase Ammonia Total Creatine Kinase Total Protein Albumin Urine pH 11/15/18 11/16/18 11/16/18 16:11 04:59 04:59 WBC Hgb MCH 26 L RDW 23.4 H Lymph % (Auto) Lymph # Seg Neutrophils % Monocytes % (Manual) Basophils % (Manual) Seg Neutrophils # Lymphocytes # (Manual) PT INR POC ABG pH POC ABG pCO2 POC ABG pO2 Sodium 146 H Potassium Chloride 110.4 H BUN Creatinine 0.4 L Glucose POC Glucose 127 H Total Bilirubin AST Alkaline Phosphatase Ammonia Total Creatine Kinase Total Protein Albumin Urine pH 11/16/18 11/19/18 04:59 04:36 WBC Hgb MCH RDW Lymph % (Auto) Lymph # Seg Neutrophils % Monocytes % (Manual) Basophils % (Manual) Seg Neutrophils # Lymphocytes # (Manual) PT 16.2 H INR 1.34 H POC ABG pH POC ABG pCO2 POC ABG pO2 Sodium Potassium 3.4 L Chloride 109.7 H BUN Creatinine 0.4 L Glucose POC Glucose Total Bilirubin AST 59 H Alkaline Phosphatase 309 H Ammonia Total Creatine Kinase Total Protein Albumin 3.0 L Urine pH Allied health notes reviewed: RT (Trial of HFOT to keep O2 sats 90% with NIPPV prn and qhs)
[2018-11-23 18:38] VITALS: BP 132/73
== END 2018-11-23 20:30 | DRG 441 ==
LOC: ED 11:13 → CC1 13:32 → IMCU 11-12 17:23 → 3A 11-18 15:51
PROVIDERS: ADMIT Internal Medicine; ATTEND Internal Medicine
PROC: 5A1945Z Respiratory Ventilation, 24-96 Consecutive Hours (ICD-10-PCS; principal; 2018-11-08)
PROC: 0BH17EZ Insertion of Endotracheal Airway into Trachea, Via Natural or Artificial Opening (ICD-10-PCS; 2018-11-08)
PROC: 4A033R1 Measurement of Arterial Saturation, Peripheral, Percutaneous Approach (ICD-10-PCS; 2018-11-08)
PROC: 5A09357 Assistance with Respiratory Ventilation, Less than 24 Consecutive Hours, Continuous Positive Airway Pressure (ICD-10-PCS; 2018-11-11)
PROC: 5A09357 Assistance with Respiratory Ventilation, Less than 24 Consecutive Hours, Continuous Positive Airway Pressure (ICD-10-PCS; 2018-11-14)
PROC: 5A09357 Assistance with Respiratory Ventilation, Less than 24 Consecutive Hours, Continuous Positive Airway Pressure (ICD-10-PCS; 2018-11-15)
PROC: 5A09357 Assistance with Respiratory Ventilation, Less than 24 Consecutive Hours, Continuous Positive Airway Pressure (ICD-10-PCS; 2018-11-17)
PROC: 5A09357 Assistance with Respiratory Ventilation, Less than 24 Consecutive Hours, Continuous Positive Airway Pressure (ICD-10-PCS; 2018-11-19)
PROC: 5A09357 Assistance with Respiratory Ventilation, Less than 24 Consecutive Hours, Continuous Positive Airway Pressure (ICD-10-PCS; 2018-11-21)
DX: K72.90 Hepatic failure, unspecified without coma (principal); J96.01 Acute respiratory failure with hypoxia; E43 Unspecified severe protein-calorie malnutrition; G40.909 Epilepsy, unspecified, not intractable, without status epilepticus; J44.9 Chronic obstructive pulmonary disease, unspecified; E72.20 Disorder of urea cycle metabolism, unspecified; K70.31 Alcoholic cirrhosis of liver with ascites; I10 Essential (primary) hypertension; F03.90 Unspecified dementia, unspecified severity, without behavioral disturbance, psychotic disturbance, mood disturbance, and anxiety; E03.9 Hypothyroidism, unspecified; M19.90 Unspecified osteoarthritis, unspecified site; F31.9 Bipolar disorder, unspecified; K21.9 Gastro-esophageal reflux disease without esophagitis; I25.10 Atherosclerotic heart disease of native coronary artery without angina pectoris; F10.20 Alcohol dependence, uncomplicated; D68.9 Coagulation defect, unspecified; E88.09 Other disorders of plasma-protein metabolism, not elsewhere classified; D72.829 Elevated white blood cell count, unspecified; Z90.710 Acquired absence of both cervix and uterus; Z86.73 Personal history of transient ischemic attack (TIA), and cerebral infarction without residual deficits; Z68.1 Body mass index [BMI] 19.9 or less, adult; Z82.49 Family history of ischemic heart disease and other diseases of the circulatory system; Z79.899 Other long term (current) drug therapy
CPT/HCPCS: 36415; 36600; 51702; 70450; 70486; 70496; 70498; 71045; 72125; 74018; 76700; 80048; 80053; 80202; 80320; 81001; 82140; 82550; 82553; 82803; 82962; 83735; 84100; 84439; 84443; 84484; 85007; 85025; 85027; 85610; 85670; 85730; 86140; 87040; 87070; 87076; 87086; 87186; 87205; 93005; 93010; 94002; 94003; 94640; 94660; 94667; 94668; 94669; 94760; 96374; 96375; G0378; G0480; J0696; J2001; J2060; J2704; J3010; J3370; J3480; J7030; J7040; J7050; Q9967

== ENCOUNTER 2019-03-21 01:45 | Emergency (ER) | payer MEDICAID ==
--- NOTE | 2019-03-21 02:13 | Event Note ---
Date of service: 03/21/19 Face to Face: 63-year-old female brought to the hospital by emergency medical services after accidental blunt trauma to the scalp. She is afebrile with reassuring vital signs, alert to name, moving 4 extremities. She has a history of dementia. She does not appear to have additional injuries. CT scan brain, cervical spine negative. laceration Has been repaired. Tetanus vaccination is administered. Patient appears quite comfortable, and had a pleasant conversation with myself, and nurse practitioner Luzmaria. Patient medically suitable for discharge. She does not appear to have an emergent medical condition at this time. Vital Signs 03/21/19 02:27 Temperature 97.6 F Pulse Rate 54 L Respiratory 13 Rate Blood Pressure 132/62 O2 Sat by Pulse 96 Oximetry
[2019-03-21] MEDS ORDERED: TETANUS,DIPH,PERTUSS(ACELL) VACCINE 0.5 ML SYRINGE IM ONE (02:25)
--- NOTE | 2019-03-21 02:28 | Emergency Department Report ---
ED General Adult HPI - General Stated complaint: WEAKNESS/FALL Time Seen by Provider: 03/21/19 02:13 - History of Present Illness Initial comments: Ms. Cortes is a 53 y/o w/f with hx of ESLD, Liver cirrhosis, EsopahagealVarices, ETOH on Hopsice, CVA, COPD, HTN, Bipolar, OA ,and GERD. 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 Event was witnessed by Staff at assisted living home, there was no loc, no predromal event. Laceration was accidental. Pt is presently alert to self, which is baseline for her. there is no active bleeding at this time. There is no neck pain, no swelling, no deformity, report of n/v , dizziness , or lightheadedness. Pt denies headache at this time. Onset/Timin -: hour(s) Location: head Radiation: non-radiation Associated Symptoms: confusion (baseline for patient ). denies: nausea/vomiting, syncope, weakness Treatments Prior to Arrival: none - Related Data Previous Rx's Medication Instructions Recorded Last Taken Type Plavix 75 mg PO DAILY #30 08/16/17 Unknown Rx Thiamine [Vitamin B-1] 100 mg PO QDAY #30 tablet 08/16/17 Unknown Rx ALBUTEROL NEB's [Proventil 0.083% 2.5 mg IH Q6HRT PRN #90 nebu 08/04/18 Unknown Rx NEBS] ALBUTEROL NEB's [Proventil 0.083% 2.5 mg IH Q6HRT PRN #15 nebu 11/23/18 Unknown Rx NEBS] Arformoterol Nebu [Brovana Nebu] 15 mcg IH Q12HRT #60 ml 11/23/18 Unknown Rx Budesonide [Pulmicort Respules] 0.5 mg IH Q12HRT #60 nebu 11/23/18 Unknown Rx Famotidine [Pepcid] 20 mg PO BID #30 tablet 11/23/18 Unknown Rx Fluticasone [Flonase] 1 spray NS QDAY #1 11/23/18 Unknown Rx Folic Acid [Folvite] 1 mg PO QDAY #30 11/23/18 06/22/17 Rx Ipratropium/Albuterol Sulfate 1 ampul IH BIDRT #90 ampul.neb 11/23/18 Unknown Rx [DUONEB *Not for PRN Use*] Lactulose [Cephulac] 30 gm PO TID #90 oral.liqd 11/23/18 Unknown Rx Levothyroxine [Synthroid] 75 mcg PO DAILY@0600 #30 tablet 11/23/18 Unknown Rx Propranolol [Inderal] 40 mg PO QDAY #30 tab 11/23/18 Unknown Rx Rifaximin [Xifaxan] 550 mg PO BID #60 tablet 11/23/18 Unknown Rx Spironolactone [Aldactone] 100 mg PO QDAY #30 tab 11/23/18 Unknown Rx lamoTRIgine [LaMICtal] 25 mg PO BID #60 tablet 11/23/18 Unknown Rx levETIRAcetam [Keppra] 1,500 mg PO BID 30 Days #60 11/23/18 Unknown Rx oral.liqd Allergies Allergy/AdvReac Type Severity Reaction Status Date / Time No Known Allergies Allergy Verified 09/20/18 17:09 ED Review of Systems ROS: Stated complaint: WEAKNESS/FALL Other details as noted in HPI Constitutional: denies: chills, fever Eyes: denies: eye pain, eye discharge, vision change ENT: denies: ear pain, throat pain Respiratory: see HPI Cardiovascular: denies: chest pain, palpitations Endocrine: no symptoms reported Gastrointestinal: denies: abdominal pain, nausea, vomiting, diarrhea Genitourinary: denies: urgency, dysuria, discharge Musculoskeletal: denies: back pain, joint swelling, arthralgia Skin: other (occipital scalp laceration ) Neurological: denies: headache, weakness, paresthesias Psychiatric: as per HPI Hematological/Lymphatic: denies: easy bleeding, easy bruising ED Past Medical Hx - Past Medical History Hx Hypertension: Yes Hx CVA: Yes () Hx Congestive Heart Failure: No Hx Diabetes: No Hx Deep Vein Thrombosis: No Hx GERD: Yes Hx Liver Disease: Yes Hx Sickle Cell Disease: No Hx Arthritis: Yes Hx Seizures: Yes Hx Psychiatric Treatment: Yes (bipolar) Hx Asthma: No Hx COPD: No Hx Dementia: Yes Additional medical history: Thrombocytopenia, Alcohol- induced persisting dementia, anneurysm x2, ETOH abuse, unspecified brain imjury - Surgical History Hx Pacemaker: No Hx Internal Defibrillator: No Additional Surgical History: Brain aneurysm x 2Hysterectomy 11/21/13 - Social History Smoking Status: Never Smoker - Medications Home Medications: Home Medications Medication Instructions Recorded Confirmed Last Taken Type Plavix 75 mg PO DAILY #30 08/16/17 11/08/18 Unknown Rx Thiamine [Vitamin B-1] 100 mg PO QDAY #30 tablet 08/16/17 11/08/18 Unknown Rx ALBUTEROL NEB's [Proventil 0.083% 2.5 mg IH Q6HRT PRN #90 nebu 08/04/18 11/08/18 Unknown Rx NEBS] ALBUTEROL NEB's [Proventil 0.083% 2.5 mg IH Q6HRT PRN #15 nebu 11/23/18 Unknown Rx NEBS] Arformoterol Nebu [Brovana Nebu] 15 mcg IH Q12HRT #60 ml 11/23/18 Unknown Rx Budesonide [Pulmicort Respules] 0.5 mg IH Q12HRT #60 nebu 11/23/18 Unknown Rx Famotidine [Pepcid] 20 mg PO BID #30 tablet 11/23/18 Unknown Rx Fluticasone [Flonase] 1 spray NS QDAY #1 11/23/18 11/08/18 Unknown Rx Folic Acid [Folvite] 1 mg PO QDAY #30 11/23/18 11/08/18 06/22/17 Rx Ipratropium/Albuterol Sulfate 1 ampul IH BIDRT #90 ampul.neb 11/23/18 11/08/18 Unknown Rx [DUONEB *Not for PRN Use*] Lactulose [Cephulac] 30 gm PO TID #90 oral.liqd 11/23/18 11/08/18 Unknown Rx Levothyroxine [Synthroid] 75 mcg PO DAILY@0600 #30 tablet 11/23/18 11/08/18 Unknown Rx Propranolol [Inderal] 40 mg PO QDAY #30 tab 11/23/18 11/08/18 Unknown Rx Rifaximin [Xifaxan] 550 mg PO BID #60 tablet 11/23/18 Unknown Rx Spironolactone [Aldactone] 100 mg PO QDAY #30 tab 11/23/18 11/08/18 Unknown Rx lamoTRIgine [LaMICtal] 25 mg PO BID #60 tablet 11/23/18 11/08/18 Unknown Rx levETIRAcetam [Keppra] 1,500 mg PO BID 30 Days #60 11/23/18 11/08/18 Unknown Rx oral.liqd ED Physical Exam - General General appearance: alert, in no apparent distress - Head Head exam: Present: normocephalic - Expanded Head Exam Expanded Head exam: Present: laceration (scalp occipital ), other (previous surgical scar with step off lert parieta region no bleedin no creptius, no pain ). Absent: contusion, hematoma, racoon eyes, castellon's sign, general tenderness, tenderness of temporal artery, CSF rhinorrhea, CSF otorrhea - Eye Eye exam: Present: normal appearance, PERRL, EOMI. Absent: conjunctival injection, nystagmus, periorbital swelling, periorbital tenderness Pupils: Present: normal accommodation - ENT ENT exam: Present: normal orophraynx, mucous membranes moist, TM's normal bilaterally, normal external ear exam - Neck Neck exam: Present: normal inspection, full ROM. Absent: tenderness, meningismus, lymphadenopathy, thyromegaly - Expanded Neck Exam Expanded Neck exam: Absent: tenderness, midline deformity, anterior neck swelling, thyroid mass, carotid bruit, tracheal deviation - Respiratory Respiratory exam: Present: normal lung sounds bilaterally. Absent: respiratory distress, wheezes, stridor, chest wall tenderness - Cardiovascular Cardiovascular Exam: Present: regular rate, normal rhythm, normal heart sounds. Absent: systolic murmur, diastolic murmur, rubs, gallop - GI/Abdominal GI/Abdominal exam: Present: soft, normal bowel sounds. Absent: distended, tenderness, bruit, hernia - Rectal Rectal exam: Present: deferred - Extremities Exam Extremities exam: Present: normal inspection, full ROM. Absent: tenderness - Back Exam Back exam: Present: normal inspection, full ROM. Absent: tenderness, vertebral tenderness - Neurological Exam Neurological exam: Present: alert, reflexes normal. Absent: motor sensory deficit - Expanded Neurological Exam Expanded Patient oriented to: Present: person Speech: Present: fluid speech Cranial nerves: EOM's Intact: Normal, Gag Reflex: Normal, Tongue Deviation: Normal, Nystagmus: Normal, Facial Sensation: Normal Motor strength exam: RUE: 5, LUE: 5, RLE: 5, LLE: 5 Best Eye Response (Leif): (4) open spontaneously Best Motor Response (Leif): (6) obeys commands Best Verbal Response (Leif): (4) confused conversation (base line for this patient.) [place] Total: 14 - Psychiatric Psychiatric exam: Present: anxious - Skin Skin exam: Present: warm, dry, intact, normal color. Absent: rash ED Course Vital Signs 03/21/19 02:27 Temperature 97.6 F Pulse Rate 54 L Respiratory 13 Rate Blood Pressure 132/62 O2 Sat by Pulse 96 Oximetry - Laceration /Wound Repair Left Posterior Head Wound Location: head (posterior scalp 1 cm superficial minimal bleeding ) Wound Length (cm): 1 (less than 1 cm ) Wound's Depth, Shape: superficial Wound Explored: clean Irrigated w/ Saline (ccs): 20 Betadine Prep?: No Wound Repaired With: sutures (maged x 3 ) Number of Sutures: 3 (maged) Layer Closure?: No Progress: left occipital scalp laceration, superficial, wound cleaned with sterile saline, irrigated with 20 cc sterile saline, closed with maged x 3, edges well approximated, all bleeding is controlled , site left hannah, pt given tetanus im, pt tolerated procedure with minimal distress, ED Medical Decision Making - Radiology Data Radiology results: report reviewed, image reviewed CT head no acute intercranial abnormality, CT Cspine: no acute fracture, chronic degenerative changes. - Medical Decision Making scalp laceation repaired, see procedure noted, all bleeding is controlled, CT head and cspine no acute fracture or bleed, pt tolerated procedure with minimal distress, plan: dc to assisted living facility , pt will follow up with pcp and hospice provider in 1-2 days. pt is stable with mentation to baseline at this time. Critical care attestation.: If time is entered above; I have spent that time in minutes in the direct care of this critically ill patient, excluding procedure time. ED Disposition Clinical Impression: Scalp laceration Qualifiers: Encounter type: initial encounter Qualified Code(s): S01.01XA - Laceration without foreign body of scalp, initial encounter Minor head injury Qualifiers: Encounter type: initial encounter Qualified Code(s): S09.90XA - Unspecified injury of head, initial encounter Disposition: DC-01 TO HOME OR SELFCARE Is pt being admited?: No Does the pt Need Aspirin: No Condition: Stable Instructions: Laceration (ED), Staple Care (ED), Minor Head Injury (ED) Additional Instructions: apply warm compresses to scalp as needed, continue pain medicines as prescribed. Referrals: PRIMARY CARE,MD [Primary Care Provider] - 3-5 Days Forms: Work/School Release Form(ED) Time of Disposition: 03:45
--- NOTE | 2019-03-21 03:12 | Cat Scan Report ---
CT head/brain wo con INDICATION / CLINICAL INFORMATION: scalp laceration s/p trauma. TECHNIQUE: Axial CT imaging of the brain was obtained without contrast. Coronal and sagittal reformatted imaging obtained and reviewed. All CT scans at this location are performed using CT dose reduction for ALAR A by means of automated exposure control. COMPARISON: 11/08/2018 FINDINGS: No intracranial hemorrhage, mass, or midline shift is identified. No extra-axial fluid collection or suggestion of acute territorial infarct. There is encephalomalacia throughout the right temporal lobe . There is calcified dura on the left in the region of prior left craniotomy defect. Ventricular system and basilar cisterns are grossly unremarkable. There is mild dilatation of the occ ipital horn of the right lateral ventricle in the area of encephalomalacia. Mild cerebral/cerebellar atrophy noted. Visualized paranasal sinuses and mastoid air cells are well aerated and clear. No calvarial fracture. Bilateral craniotomy defects are again noted. Small scalp hematoma is seen near the vertex of the skull slightly to the left. IMPRESSION: 1. No acute intracranial abnormality. Small scalp hematoma 2. Chronic findings as described above. Signer Name: Lawanda Fletcher MD Signed: 03/21/2019 3:08 AM Workstation Name: [id number]
--- NOTE | 2019-03-21 03:20 | Cat Scan Report ---
CT cervical spine wo con INDICATION / CLINICAL INFORMATION: MAIN: neck pain s/p FALL. TECHNIQUE: Axial CT imaging of the cervical spine was obtained without contrast. Coronal and sagittal reformatte d imaging obtained and reviewed. All CT scans at this location are performed using CT dose reduction for ALARA by means of automated exposure control. COMPARISON: Prior CT cervical spine, 11/08/2018 FINDINGS: There is moderate multilevel degenerative disc disease primarily affecting C3-C6. This is associated with prominent spondylitic change. I do not see evidence of cervical spine fracture or traumatic alexis lignment. Visualized lung apices are clear. IMPRESSION: 1. No visible cervical spine fracture or traumatic malalignment. 2. Prominent multilevel degenerative disc disease with associated spondylitic change throughout the u pper/mid cervical spine. Signer Name: Lawanda Fletcher MD Signed: 03/21/2019 3:15 AM Workstation Name: [id number]
[2019-03-21] MEDS ORDERED: ACETAMINOPHEN 500 MG TAB PO ONE (03:34)
[2019-03-21 06:39] VITALS: BP 100/63
== END 2019-03-21 07:06 | disposition home or self-care (01) ==
LOC: ED 01:45
DX: S01.01XA Laceration without foreign body of scalp, initial encounter (principal); I10 Essential (primary) hypertension; J44.9 Chronic obstructive pulmonary disease, unspecified; F31.9 Bipolar disorder, unspecified; K21.9 Gastro-esophageal reflux disease without esophagitis; M19.90 Unspecified osteoarthritis, unspecified site; Z79.01 Long term (current) use of anticoagulants; Z79.899 Other long term (current) drug therapy; Z98.890 Other specified postprocedural states; Z90.710 Acquired absence of both cervix and uterus; W26.8XXA Contact with other sharp object(s), not elsewhere classified, initial encounter; Y93.89 Activity, other specified; Y92.89 Other specified places as the place of occurrence of the external cause; Y99.8 Other external cause status
CPT/HCPCS: 70450; 72125; 90471; 90715